=== PATIENT | female | born 1960 | race Caucasian/White ===

== ENCOUNTER → 2017-08-20 13:12 | Outpatient (CLI) | payer OTHER, MEDICAID, SELFPAY | PROVIDERS: Family Provider Family Medicine; PCP Family Medicine; Visit Provider Internal Medicine | DX: E11.621 Type 2 diabetes mellitus with foot ulcer (principal); E11.49 Type 2 diabetes mellitus with other diabetic neurological complication; L97.522 Non-pressure chronic ulcer of other part of left foot with fat layer exposed; L97.512 Non-pressure chronic ulcer of other part of right foot with fat layer exposed; L97.412 Non-pressure chronic ulcer of right heel and midfoot with fat layer exposed | CPT/HCPCS: 11042; 97607 ==

== ENCOUNTER → 2017-08-27 09:18 | Outpatient (CLI) | payer OTHER, MEDICAID, SELFPAY | PROVIDERS: Family Provider Family Medicine; PCP Family Medicine; Visit Provider Internal Medicine | DX: E11.621 Type 2 diabetes mellitus with foot ulcer (principal); L97.522 Non-pressure chronic ulcer of other part of left foot with fat layer exposed; L97.512 Non-pressure chronic ulcer of other part of right foot with fat layer exposed; E11.622 Type 2 diabetes mellitus with other skin ulcer; L97.412 Non-pressure chronic ulcer of right heel and midfoot with fat layer exposed | CPT/HCPCS: 11042; 97607 ==

== ENCOUNTER → 2017-09-03 09:00 | Outpatient (CLI) | payer OTHER, MEDICAID, SELFPAY | PROVIDERS: Family Provider Family Medicine; PCP Family Medicine; Visit Provider Internal Medicine | DX: E11.621 Type 2 diabetes mellitus with foot ulcer (principal); L97.522 Non-pressure chronic ulcer of other part of left foot with fat layer exposed; L97.512 Non-pressure chronic ulcer of other part of right foot with fat layer exposed; L97.412 Non-pressure chronic ulcer of right heel and midfoot with fat layer exposed; M79.671 Pain in right foot | CPT/HCPCS: 11042; 97607 ==

== ENCOUNTER → 2017-09-03 14:12 | Outpatient (REF) | payer OTHER, MEDICAID, SELFPAY | LOC: LAB 14:12 | PROVIDERS: Family Provider Family Medicine; PCP Family Medicine; Visit Provider Internal Medicine | DX: L08.9 Local infection of the skin and subcutaneous tissue, unspecified (principal) | CPT/HCPCS: 87070; 87075; 87077; 87147; 87205 ==

== ENCOUNTER → 2017-09-03 14:19 | Outpatient (REF) | payer OTHER, MEDICAID, SELFPAY | LOC: LAB 14:19 | PROVIDERS: Family Provider Family Medicine; PCP Family Medicine; Visit Provider Internal Medicine | DX: L08.9 Local infection of the skin and subcutaneous tissue, unspecified (principal) | CPT/HCPCS: 87070; 87075; 87077; 87147; 87186; 87205 ==

== ENCOUNTER → 2017-09-10 09:47 | Outpatient (CLI) | payer OTHER, MEDICAID, SELFPAY | PROVIDERS: Family Provider Family Medicine; PCP Family Medicine; Visit Provider Internal Medicine | DX: E11.621 Type 2 diabetes mellitus with foot ulcer (principal); E11.65 Type 2 diabetes mellitus with hyperglycemia; L97.522 Non-pressure chronic ulcer of other part of left foot with fat layer exposed; L97.512 Non-pressure chronic ulcer of other part of right foot with fat layer exposed; L97.412 Non-pressure chronic ulcer of right heel and midfoot with fat layer exposed; B95.62 Methicillin resistant Staphylococcus aureus infection as the cause of diseases classified elsewhere | CPT/HCPCS: 11042 ==

== ENCOUNTER → 2017-09-17 09:08 | Outpatient (CLI) | payer OTHER, MEDICAID, SELFPAY ==
--- NOTE | 2017-09-17 | OV.WND_ITS ---
Progress Note Details Patient Name: Ariana Causey Patient Number: [id number] PatientPatientDate: 09/17/2017 Clinician: Joselin Gilliland Clinician Cosigner: Clara Espino Physician / Carpet Renovator: Raphael Bush SUBJECTIVE Chief Complaint This information was obtained from the patient Non-healing wound to right great toe and second toe. Allergies Sulfa (Sulfonamide Antibiotics), Vicodin HPI This information was obtained from the patient 09/17/17. Seen by Dr. Bush. The patient reports pain associated with the chronic left 3rd and 4th toe and right 2nd toe diabetic ulcers since her last visit and staff report significant maceration in these periulcer areas. Otherwise she'll complete her course of antibiotics that's treating the recent MRSA positive wound culture and is tolerating the wound vac overlying the right lateral heel diabetic ulcer. Her blood sugar is again over 300 today and she states she forgot to take her Lantus this morning. 09/10/17. Seen by Dr. Bush. The patient's now on doxycycline for the MRSA positive culture taken from the chronic right lateral heel diabetic ulcer last week. She does not report adverse side effects or other acute issues regarding the remaining left and right foot diabetic ulcers. Her blood sugars are again over 300 today which she attributes to eating strawberries this morning. 09/03/17. Seen by Dr. Bush. The patient reports some increased drainage associated with the bilateral diabetic foot ulcers since her last visit and she's still not checking blood sugars at home as recommended. Otherwise she's tolerating negative pressure wound therapy without difficulty and does not report any acute issues at this time. 08/27/17. Seen by Dr. Bush. The patient does not report significant pain nor drainage associated with the bilateral diabetic foot ulcers since her last visit and she tolerated negative pressure wound therapy of the right lateral heel diabetic ulcer without difficulty. 08/20/17. Seen by Dr. Bush. The patient does not report significant pain nor drainage associated with the bilateral diabetic foot ulcers since her last visit and she tolerated negative pressure wound therapy of the right lateral heel diabetic ulcer without difficulty. 08/13/17. Seen by Dr. Bush. The patient does not report significant pain nor drainage associated with the bilateral diabetic foot ulcers since her last visit and she tolerated negative pressure wound therapy of the right lateral heel diabetic ulcer without difficulty. Also, her blood sugars are improving although are still elevated at 204 today. 08/06/17. Seen by Dr. Bush. The patient does not report significant pain nor drainage associated with the bilateral diabetic foot ulcers since her last visit and she tolerated negative pressure wound therapy of the right lateral heel diabetic ulcer without difficulty. 07/30/17. Seen by Dr. Bush. The patient does not report significant pain nor drainage associated with the bilateral diabetic foot ulcers since her last visit and she tolerated negative pressure wound therapy of the right lateral heel diabetic ulcer without difficulty. 07/23/17. Seen by Dr. Bush. The patient does not report significant pain nor drainage associated with the bilateral diabetic foot ulcers since her last visit. Her MRI did not indicate osteo-myelitis of the right heel and she's been off of Zyvox that was treated in the recent MRSA infection for over a week. She has continued to apply topical gentamicin to the ulcers as recommended. Of note, her blood sugar is elevated again today at 227 which has been an ongoing issue since she's been attending our clinic. 07/16/17. Seen by Dr. Bush. The patient continues to report improvement in terms of pain and drainage associated with the chronic right and left foot diabetic ulcer since her last visit. She's completed a course of Zyvox that's been treating the recent MRSA positive wound culture of the right heel and does not report adverse side effects. She also has an MRI of the heel next week to evaluate for possible osteomyelitis. 07/13/17. Seen by Dr. Bush. The patient reports significant improvement in terms of her right heel pain since starting on Zyvox last week. She also feels in general the bilateral diabetic foot ulcers are draining less and improving. Her A1c was very high and her primary care provider increased her Lantus to 40 units twice daily. 07/09/17. Seen by Dr. Bush. The patient has not yet picked up her prescription for Zyvox which was approved yesterday to treat the right lateral heel MRSA positive wound culture. She does report increased pain or drainage associated with either the left or right foot diabetic ulcers and her blood sugars are just over 200 today which is an improvement. She is to follow-up with primary care provider today also noting her chronically elevated blood sugars and need for improving terms of her diabetes management in general. 07/06/17. Seen by Dr. Bush. The patient continues to report significant pain associated with bilateral right heel diabetic foot ulcer over the past week. Her wound culture grew a very resistant MRSA and she is not currently on systemic antibiotics. She does not report seeing any pain or drainage associated with the other right and left foot diabetic ulcers. As a side note, the patient states that her 10-year-old grandson is staying with her and has been helping with her insulin. 07/02/17. Seen by Dr. Bush. The patient's blood sugar 316 today and she still not checking them daily at home is recommended. She does not report significant pain or increased drainage associated with bilateral right and left foot diabetic ulcers since her last visit. 06/25/17. She will Dr. Bush. The patient continues on doxycycline for the MRSA positive culture taken from her right foot diabetic ulcer. She does not report increased drainage or pain associated with the bilateral diabetic foot ulcers and her x-ray of the right heel did not confirm osteomyelitis. Her blood sugars continue to be consistently around 250 and she is now checking them daily with the help of her caregiver. 06/18/16. Seen by JED Ruffin. The patient denies pain or increased drainage associated with bilateral diabetic foot ulcers. She was started on Doxycycline last week per MRSA culture. She takes her last dose today. Her blood sugar in clinic today was 255. She continues to be inconsistent with checking her blood sugars at home and continues to smoke despite being counseled on the associated negative effects on wound healing. 06/11/17. Seen by Dr. Bush. The patient does not report pain or increased drainage associated with bilateral diabetic foot ulcers. She has not picked up her antibiotic prescription to treat the recently cultured MRSA. Her blood sugar is 267 today following having a cookie for breakfast and she is also not checking her blood sugars routinely despite taking insulin. Of note, she has shown a pattern of noncompliance since establishing care at our clinic. She does not report fevers or feeling unwell in general. 06/04/17. Seen by Randell Turner PA-C. The patient reports no increase in drainage from her bilateral diabetic foot ulcers. Her CT Angiogram did not show hemodynamically significant stenosis or occlusions of her lower extremity arteries. She has not attempted to make an appointment to see her PCP regarding her persistent hyperglycemia. She continues smoking cigarettes and does not indicate a willingness to cut down or quit to help her ulcers heal. In addition, when a dog hair was pulled from her ulcer today she reported that I may have let my dog lay on my feet when I didn't have a bandage on. 05/28/17. Seen by Randell Turner PA-C. The patient reports stable drainage and pain from her diabetic foot ulcers. She initially refuses to have her blood sugar taken today citing having just eaten a box of candy. She has not attempted to make an appointment with her PCP to discuss her blood sugars. She continues on doxycycline for her ulcer infection and her CT angiogram to evaluate her PAD is scheduled for next week. In addition she continues smoking cigarettes. 05/18/17. Seen by Randell Turner PA-C. The patient reports decreased ulcer pain and stable drainage. Her blood sugars are reportedly over 200 and she has not made an appointment with her PCP to address this as instructed. 05/11/17. Seen by Randell Turner PA-C. The patient reports a decrease in ulcer pain from her bilateral lower extremity ulcers since taking her antibiotics. Her blood sugars continue to be over 150. 05/07/17. Seen by Randell Turner PA-C. The patient reports that her blood sugars have never ever been below 150 and that she has not yet begun taking the Doxycycline I have prescribed. She is willing to undergo debridement but is concerned about pain. Of note regarding pain, when I attempted to palpate her left pedal pulse, she stated that she experienced 7.5/10 pain from the light touch of palpating the dorsum of her foot. 04/29/17. Seen by Randell Turner PA-C. The patient reports increased pain from her ulcers, indicating that she will not be able to tolerate a debridement today of her ulcers. She is willing, however, to undergo a limited debridement to remove some devitalized tissue and obtain a tissue sample for bacterial culture. In addition, the patient notes new ulcers of her left leg and they have been rapidly increasing in size by her report. 04/23/17. Seen by Dr. Bush. The patient does not report significant pain or increased drainage associated with bilateral dorsal toe diabetic ulcers since her last visit. 04/16/17. Seen by Dr. Bush. The patient reports some new ulcers over the left toes and does not know how long they've been there but states they're somewhat painful. She does not report any increase in drainage or pain associated with chronic right first and second toe diabetic ulcers over the past week. She states she is not checking her blood sugars routinely because she is not able to use her glucometer and she has been decreasing her smoking substantially. She does not report fevers or feeling unwell or any other acute issues today. 04/09/17. Seen by Dr. Bush. The patient does not report significant pain nor increased drainage associated with the chronic right first and second toe diabetic ulcers since her last visit. Her arterial Doppler also did not confirm clinically significant PAD.She' s completed her course of oral antibiotics that was treated in the Enterobacter positive wound culture however continues to apply topical gentamicin dressing changes. Her blood sugars again are elevated today at 256. 04/01/17. Seen by Dr. Bush. The patient can to use reports some discomfort associated with the chronic right first and second toe diabetic ulcers. She was to have an arterial Doppler today to evaluate for PAD however was unable to make the appointment due to transportation issues. She continues on ciprofloxacin to treat the Enterobacter positive wound culture taken at the initial visit. Of note, her diabetes has been very poorly controlled and she continues to smoke cigarettes. Her blood sugar today is 354. 03/24/17. Seen by Dr. Bush. The patient continues to report pain associated with the chronic right first and second toe diabetic ulcers. She continues on ciprofloxacin for the recently cultured Enterobacter positive culture. She is a report of her side effects nor fevers or feeling unwell. Also, her blood sugars continue to be poorly controlled and are well over 300 today. 03/17/17. Seen by Dr. Bush. The patient is new to our clinic and presents with chronic right first and second toe diabetic ulcers. She states that they occurred spontaneously about 1 month ago and have been slowly progressing. She reports some modest pain and drainage however does not report fevers. Her diabetes is very poorly controlled with an A1c reportedly of 14 and she smokes half pack of cigarettes daily. Her primary care provider started her on Augmentin yesterday. Past Medical History This information was obtained from the patient Patient has a medical history of: Diabetes, type 2 Diabetic Neuropathy Urinary Incontinence Fibromylagia CVA Osteoarthritis Gastro Esoph. Reflux Disease (GERD) Sleep Apnea Hyperlipidemia Depression Complaints and Symptoms This information was obtained from the patient Patient complains of: General Notes: I have reviewed and concur with the Review of Systems and Past Family Social History documents completed by the clinician, I have reviewed and concur with the Wound Assessment document completed by the clinician Cardiovascular (Central): Dyspnea on Exertion Integumentary (Hair/Skin/Nails): Open Sore Musculoskeletal: Joint Swelling Prior Wound History: Drainage, Erythema, Pain Patient denies complaints or symptoms related to: Cardiovascular (Central): Irregular heart beat Cardiovascular (Central/Peripheral): Intermittent Claudication Constitutional Symptoms (General Health): Chills, Fever Ear/Nose/Mouth/Throat: Hearing Loss / Aid Gastrointestinal (GI): Nausea / Vomiting Hematologic/Lymphatic: Bleeding / Clotting Disorders, Bleeding Tendency Neurological: Loss of Protective Sensation Prior Wound History: Bleeding Psychiatric: Memory Loss Respiratory: Oxygen Use, Shortness of Breath OBJECTIVE Constitutional Vital signs reviewed and noted. Well developed. Alert. Clean appearing.. Height/ Length: 63 in (160.02 cm), Weight: 215 lbs (97.73 kgs), BMI: 38.1, Temperature: 98.8 ?F ( 37.11 ?C), Pulse: 99 bpm, Respiratory Rate: 18 breaths/min, Blood Pressure: 136/88 mmHg, Capillary Blood Glucose: 384 mg/dl, Pulse Oximetry: 96 %. Vital Signs Notes: Glucose taken in clinic Ears, Nose, Mouth, and Throat: No clinically significant hearing loss on informal examination. Respiratory: No respiratory distress. Even respirations and without use of accessory muscles.. Cardiovascular: 1+ bilateral lower leg edema. Gastrointestinal (GI): Obese. Nondistended.. Integumentary (Hair, Skin) Mild periwound erythema without warmth. Refer to appropriate clinician wound documentation for this visit; right and left foot ulcers extend to subcut with bases partially covered with pink granulation, remainder fibrin and slough; right 1st toe ucler extends to dermis and is nearly healed. Maceration present in the periwound areas. Wound #3 Left, Dorsal Second Toe is a chronic Aguilar Grade 2 Diabetic Ulcer and has received a status of Not Healed. Subsequent wound encounter measurements are 0.1cm length x 0.1cm width x 0.1cm depth, with an area of 0.01 sq cm and a volume of 0.001 cubic cm. Hypergranulation was noted. No tunneling has been noted. No sinus tract has been noted. No undermining has been noted. There is a scant amount of sero-sanguineous drainage noted which has no odor. The patient reports a wound pain of level 0/10. The wound margin is attached. Wound bed has Yes epithelialization, No eschar, Yes slough, No granulation. The periwound skin texture is normal. The periwound skin color is normal. The periwound skin exhibited: Moist, Maceration. The temperature of the periwound skin is Cool. Periwound skin does not exhibit signs or symptoms of infection. Local Pulse is Palpable. General Notes: Covered in dried drainage Wound #8 Right Heel is a chronic Aguilar Grade 2 Diabetic Ulcer and has received a status of Not Healed. Subsequent wound encounter measurements are 2.5cm length x 1.6cm width x 0.2cm depth, with an area of 4 sq cm and a volume of 0.8 cubic cm. No tunneling has been noted. No sinus tract has been noted. No undermining has been noted. There is a large amount of sero-sanguineous drainage noted which has no odor. The patient reports a wound pain of level 2/10. The wound margin is attached. Wound bed has No epithelialization, No eschar, Yes slough, Yes bright red, firm granulation. The periwound skin texture is normal. The periwound skin color is normal. The periwound skin exhibited: Moist, Maceration. The periwound skin did not exhibit: Dry/Scaly. The temperature of the periwound skin is Cool. Periwound skin does not exhibit signs or symptoms of infection. Local Pulse is Palpable. Wound #9 Left, Medial Third Toe is a chronic Aguilar Grade 2 Diabetic Ulcer and has received a status of Not Healed. Subsequent wound encounter measurements are 0.5cm length x 0.6cm width x 0.2cm depth, with an area of 0.3 sq cm and a volume of 0.06 cubic cm. No tunneling has been noted. No sinus tract has been noted. No undermining has been noted. There is a small amount of sero-sanguineous drainage noted which has no odor. The patient reports a wound pain of level 0/10. The wound margin is attached. Wound bed has No epithelialization, No eschar, Yes slough, Yes bright red, pink, firm granulation. The periwound skin texture is normal. The periwound skin color is normal. The periwound skin exhibited: Moist, Maceration. The temperature of the periwound skin is Cool. Periwound skin does not exhibit signs or symptoms of infection. Local Pulse is Palpable. Wound #10 Right, Dorsal, Anterior Great Toe is a chronic Aguilar Grade 1 Diabetic Ulcer and has received a status of Not Healed. Subsequent wound encounter measurements are 0.1cm length x 0.1cm width x 0.1cm depth, with an area of 0.01 sq cm and a volume of 0.001 cubic cm. No tunneling has been noted. No sinus tract has been noted. No undermining has been noted. There is a small amount of sero-sanguineous drainage noted which has no odor. The patient reports a wound pain of level 0/10. The wound margin is attached. Wound bed has Yes epithelialization, No eschar, Yes slough, No granulation. The periwound skin texture is normal. The periwound skin moisture is normal. The periwound skin color is normal. The temperature of the periwound skin is Cool. Periwound skin does not exhibit signs or symptoms of infection. Local Pulse is Palpable. Wound #11 Right, Dorsal Second Toe is a chronic Aguilar Grade 1 Diabetic Ulcer and has received a status of Not Healed. Subsequent wound encounter measurements are 0.1cm length x 0.1cm width x 0.1cm depth, with an area of 0.01 sq cm and a volume of 0.001 cubic cm. No tunneling has been noted. No sinus tract has been noted. No undermining has been noted. There is a scant amount of sanguineous drainage noted which has no odor. The patient reports a wound pain of level 0/10. The wound margin is attached. Wound bed has No epithelialization, No eschar, Yes slough, Yes pink, firm granulation. The periwound skin texture is normal. The periwound skin color is normal. The periwound skin exhibited: Maceration. The temperature of the periwound skin is Cool. Periwound skin does not exhibit signs or symptoms of infection. Local Pulse is Palpable. General Notes: Measured base of the nail. Neurological: Cranial nerves grossly intact with symmetric function normal by informal observation.. ASSESSMENT Active Problems ICD-10 (Encounter Diagnosis) L97.522 - Non-pressure chronic ulcer of other part of left foot with fat layer exposed (Encounter Diagnosis) E11.621 - Type 2 diabetes mellitus with foot ulcer (Encounter Diagnosis) L97.512 - Non-pressure chronic ulcer of other part of right foot with fat layer exposed (Encounter Diagnosis) L97.412 - Non-pressure chronic ulcer of right heel and midfoot with fat layer exposed (Encounter Diagnosis) B95.62 - Methicillin resistant Staphylococcus aureus infection as the cause of diseases classified elsewhere (Encounter Diagnosis) E11.65 - Type 2 diabetes mellitus with hyperglycemia (Encounter Diagnosis) Z91.19 - Patient's noncompliance with other medical treatment and regimen PROCEDURES Wound #3 Wound #3 (Diabetic Ulcer) is located on the left, dorsal second toe. A skin/ subcutaneous tissue level surgical debridement with a total area debrided of 0.04 sq cm was performed by Raphael Bush MD. Subcutaneous was removed along with devitalized tissue: slough. The following instrument(s) were used: curette. Pain control was achieved using 4% Lido. A time out was conducted prior to the start of the procedure. A minimal amount of bleeding was controlled with n/a. The procedure was tolerated well with a pain level of 0 throughout and a pain level of 0 following the procedure. Post Debridement Measurements: 0.2cm length x 0.2cm width x 0.2cm depth; with an area of 0.04 sq cm and a volume of 0.008 cubic cm; Wound #8 Wound #8 (Diabetic Ulcer) is located on the right heel. A skin/subcutaneous tissue level surgical debridement with a total area debrided of 4.25 sq cm was performed by Raphael Bush MD. Subcutaneous was removed along with devitalized tissue: slough and maceration. The following instrument(s) were used: curette. Pain control was achieved using 4% Lido. A time out was conducted prior to the start of the procedure. A minimal amount of bleeding was controlled with n/a. The procedure was tolerated well with a pain level of 0 throughout and a pain level of 0 following the procedure. Post Debridement Measurements: 2.5cm length x 1.7cm width x 0.3cm depth; with an area of 4.25 sq cm and a volume of 1.275 cubic cm; Wound #8 (Diabetic Ulcer) is located on the right heel. A Disposable Wound Vac Application < 50 Sq Cm procedure was performed for the lower right extremity by Raphael Bush MD. A time out was conducted prior to the start of the procedure. The procedure was tolerated well. General Notes: WILFREDO 4x8 Wound #9 Wound #9 (Diabetic Ulcer) is located on the left, medial third toe. A skin/ subcutaneous tissue level surgical debridement with a total area debrided of 0.36 sq cm was performed by Raphael Bush MD. Subcutaneous was removed along with devitalized tissue: exudate, slough, and maceration. The following instrument(s) were used: curette. Pain control was achieved using 4% Lido. A time out was conducted prior to the start of the procedure. A minimal amount of bleeding was controlled with n/a. The procedure was tolerated well with a pain level of 0 throughout and a pain level of 0 following the procedure. Post Debridement Measurements: 0.6cm length x 0.6cm width x 0.3cm depth; with an area of 0.36 sq cm and a volume of 0.108 cubic cm; Wound #10 Wound #10 (Diabetic Ulcer) is located on the right, dorsal, anterior great toe. A selective debridement with a total area debrided of 0.01 sq cm was performed by Raphael Bush MD. Dermis and Epidermis were removed along with devitalized tissue: exudate. The following instrument(s) were used: curette. Pain control was achieved using 4% Lido. A time out was conducted prior to the start of the procedure. No bleeding occurred. The procedure was tolerated well with a pain level of 0 throughout and a pain level of 0 following the procedure. Post Debridement Measurements: 0.1cm length x 0.1cm width x 0.1cm depth; with an area of 0.01 sq cm and a volume of 0.001 cubic cm; Wound #11 Wound #11 (Diabetic Ulcer) is located on the right, dorsal second toe. A skin/ subcutaneous tissue level surgical debridement with a total area debrided of 0.04 sq cm was performed by Raphael Bush MD. Subcutaneous was removed along with devitalized tissue: slough. The following instrument(s) were used: curette. Pain control was achieved using 4% Lido. A time out was conducted prior to the start of the procedure. A minimal amount of bleeding was controlled with n/a. The procedure was tolerated well with a pain level of 0 throughout and a pain level of 0 following the procedure. Post Debridement Measurements: 0.2cm length x 0.2cm width x 0.2cm depth; with an area of 0.04 sq cm and a volume of 0.008 cubic cm; Additional Information Muscle fascia or bone removed and sent to pathology?: No Muscle fascia or bone removed and sent to pathology?: No Muscle fascia or bone removed and sent to pathology?: No Muscle fascia or bone removed and sent to pathology?: No PLAN Wound Orders: Wound #3 Left, Dorsal Second Toe Anesthetic Topical Xylocaine to wound bed. - [place] clinic only Cleanser Cleanse Wound: - with Normal saline. May Shower With Negative Pressure - Please avoid getting tap water on wounds or in dressing. Please cover if taking a shower. Topical Treatments Antibiotic/Antimicrobial Ointment/Cream. - Gentamicin Dressings Primary dressing: - Foam and intradry between toes Cover and secure with: - Tape, conform and netting Change Dressing: - Daily Wound #8 Right Heel Anesthetic Topical Xylocaine to wound bed. - [facility] only Topical Treatments Antibiotic/Antimicrobial Ointment/Cream. - Gentamicin Dressings Negative Pressure Wound Therapy - Wilfredo dressing. Wound #9 Left, Medial Third Toe Anesthetic Topical Xylocaine to wound bed. - [facility] only Cleanser Cleanse Wound: - with Normal saline. May Shower With Negative Pressure - Please avoid getting tap water on wounds or in dressing. Please cover if taking a shower. Topical Treatments Antibiotic/Antimicrobial Ointment/Cream. - Gentamicin Dressings Primary dressing: - Aqua cell silver between toes Cover and secure with: - conform and netting Change Dressing: - Daily Wound #10 Right, Dorsal, Anterior Great Toe Anesthetic Topical Xylocaine to wound bed. - [facility] only Cleanser Cleanse Wound: - with Normal saline. May Shower With Negative Pressure - Please avoid getting tap water on wounds or in dressing. Please cover if taking a shower. Topical Treatments Antibiotic/Antimicrobial Ointment/Cream. - Gentamicin Dressings Primary dressing: - Foam and intradry between toes Cover and secure with: - Tape, conform and netting Change Dressing: - Daily Wound #11 Right, Dorsal Second Toe Anesthetic Topical Xylocaine to wound bed. - [facility] only Topical Treatments Antibiotic/Antimicrobial Ointment/Cream. - Gentamicin Dressings Primary dressing: - Foam and intradry between toes Cover and secure with: - Tape, conform and netting Change Dressing: - Daily Additional Orders: Follow-Up Appointments Return Appointment: - - One week Other information: If you develop fever, chills, increased pain, drainage, redness or swelling please call our office. If after hours, respond to the ER. Should you experience any significant changes in your wound(s) or have any questions regarding your home care instructions please contact the wound center @ [phone]. If after hours, contact your primary care physician or go to the hospital emergency room. Scribing Attestation I attest, as the nurse, that I scribed these orders for the physician. Laboratory: Bacteria identified in Wound by Culture - Left third toe#9 and right second toe #11 General Notes: Please finished taking your antibiotics. We will call you if there is any positive growth in the culture. I've reviewed the clinician's documentation and agree with the evaluation and plan as written. In addition the patient's ulcers demonstrate evidence of non-viable devitalized tissue and they will continue to benefit from sharp debridement to help promote granulation and expedite healing. Negative pressure wound therapy will be utilized to facilitate granulation and removal of exudate and infectious material with the goal of expediting wound healing. Also, I've taken wound cultures of the left 3rd toe and right 2nd toe diabetic ulcers and will adjust her antibiotics pending the results. She's also been counseled regarding the need to adhere to her diabetes medication regimen to better control her blood sugars. Electronic Signature(s) Signed By: Date: Raphael Bush MD 09/19/2017 14:27:05 Entered By: Raphael Bush on 09/17/2017 12:50:14
== END ==
PROVIDERS: Family Provider Family Medicine; PCP Family Medicine; Visit Provider Internal Medicine
DX: E11.621 Type 2 diabetes mellitus with foot ulcer (principal); L97.522 Non-pressure chronic ulcer of other part of left foot with fat layer exposed; L97.512 Non-pressure chronic ulcer of other part of right foot with fat layer exposed; L97.412 Non-pressure chronic ulcer of right heel and midfoot with fat layer exposed; B95.62 Methicillin resistant Staphylococcus aureus infection as the cause of diseases classified elsewhere; E11.65 Type 2 diabetes mellitus with hyperglycemia; Z91.19 Patient's noncompliance with other medical treatment and regimen; M79.672 Pain in left foot; L97.511 Non-pressure chronic ulcer of other part of right foot limited to breakdown of skin
CPT/HCPCS: 11042; 87070; 87075; 87077; 87147; 87205; 97607

== ENCOUNTER → 2017-09-24 11:42 | Outpatient (CLI) | payer OTHER, MEDICAID, SELFPAY ==
--- NOTE | 2017-09-24 | OV.WND_ITS ---
Progress Note Details Patient Name: Ariana Causey Patient Number: [id number] PatientPatientDate: 09/24/2017 Clinician: Krystle Richardson Clinician Cosigner: Joselin Gilliland Physician / Furniture Removalist'S Assistant: Nasim Turner SUBJECTIVE Chief Complaint This information was obtained from the patient Non-healing wound to right great toe and second toe. Allergies Sulfa (Sulfonamide Antibiotics), Vicodin HPI This information was obtained from the patient 09/24/17. Seen by Randell Turner PA-C. The patient reports high blood sugars and increased drainage from her left foot diabetic ulcers. 09/17/17. Seen by Dr. Bush. The patient reports pain associated with the chronic left 3rd and 4th toe and right 2nd toe diabetic ulcers since her last visit and staff report significant maceration in these periulcer areas. Otherwise she'll complete her course of antibiotics that's treating the recent MRSA positive wound culture and is tolerating the wound vac overlying the right lateral heel diabetic ulcer. Her blood sugar is again over 300 today and she states she forgot to take her Lantus this morning. 09/10/17. Seen by Dr. Bush. The patient's now on doxycycline for the MRSA positive culture taken from the chronic right lateral heel diabetic ulcer last week. She does not report adverse side effects or other acute issues regarding the remaining left and right foot diabetic ulcers. Her blood sugars are again over 300 today which she attributes to eating strawberries this morning. 09/03/17. Seen by Dr. Bush. The patient reports some increased drainage associated with the bilateral diabetic foot ulcers since her last visit and she's still not checking blood sugars at home as recommended. Otherwise she's tolerating negative pressure wound therapy without difficulty and does not report any acute issues at this time. 08/27/17. Seen by Dr. Bush. The patient does not report significant pain nor drainage associated with the bilateral diabetic foot ulcers since her last visit and she tolerated negative pressure wound therapy of the right lateral heel diabetic ulcer without difficulty. 08/20/17. Seen by Dr. Bush. The patient does not report significant pain nor drainage associated with the bilateral diabetic foot ulcers since her last visit and she tolerated negative pressure wound therapy of the right lateral heel diabetic ulcer without difficulty. 08/13/17. Seen by Dr. Bush. The patient does not report significant pain nor drainage associated with the bilateral diabetic foot ulcers since her last visit and she tolerated negative pressure wound therapy of the right lateral heel diabetic ulcer without difficulty. Also, her blood sugars are improving although are still elevated at 204 today. 08/06/17. Seen by Dr. Bush. The patient does not report significant pain nor drainage associated with the bilateral diabetic foot ulcers since her last visit and she tolerated negative pressure wound therapy of the right lateral heel diabetic ulcer without difficulty. 07/30/17. Seen by Dr. Bush. The patient does not report significant pain nor drainage associated with the bilateral diabetic foot ulcers since her last visit and she tolerated negative pressure wound therapy of the right lateral heel diabetic ulcer without difficulty. 07/23/17. Seen by Dr. Bush. The patient does not report significant pain nor drainage associated with the bilateral diabetic foot ulcers since her last visit. Her MRI did not indicate osteo-myelitis of the right heel and she's been off of Zyvox that was treated in the recent MRSA infection for over a week. She has continued to apply topical gentamicin to the ulcers as recommended. Of note, her blood sugar is elevated again today at 227 which has been an ongoing issue since she's been attending our clinic. 07/16/17. Seen by Dr. Bush. The patient continues to report improvement in terms of pain and drainage associated with the chronic right and left foot diabetic ulcer since her last visit. She's completed a course of Zyvox that's been treating the recent MRSA positive wound culture of the right heel and does not report adverse side effects. She also has an MRI of the heel next week to evaluate for possible osteomyelitis. 07/13/17. Seen by Dr. Bush. The patient reports significant improvement in terms of her right heel pain since starting on Zyvox last week. She also feels in general the bilateral diabetic foot ulcers are draining less and improving. Her A1c was very high and her primary care provider increased her Lantus to 40 units twice daily. 07/09/17. Seen by Dr. Bush. The patient has not yet picked up her prescription for Zyvox which was approved yesterday to treat the right lateral heel MRSA positive wound culture. She does report increased pain or drainage associated with either the left or right foot diabetic ulcers and her blood sugars are just over 200 today which is an improvement. She is to follow-up with primary care provider today also noting her chronically elevated blood sugars and need for improving terms of her diabetes management in general. 07/06/17. Seen by Dr. Bush. The patient continues to report significant pain associated with bilateral right heel diabetic foot ulcer over the past week. Her wound culture grew a very resistant MRSA and she is not currently on systemic antibiotics. She does not report seeing any pain or drainage associated with the other right and left foot diabetic ulcers. As a side note, the patient states that her 10-year-old grandson is staying with her and has been helping with her insulin. 07/02/17. Seen by Dr. Bush. The patient's blood sugar 316 today and she still not checking them daily at home is recommended. She does not report significant pain or increased drainage associated with bilateral right and left foot diabetic ulcers since her last visit. 06/25/17. She will Dr. Bush. The patient continues on doxycycline for the MRSA positive culture taken from her right foot diabetic ulcer. She does not report increased drainage or pain associated with the bilateral diabetic foot ulcers and her x-ray of the right heel did not confirm osteomyelitis. Her blood sugars continue to be consistently around 250 and she is now checking them daily with the help of her caregiver. 06/18/16. Seen by JED Ruffin. The patient denies pain or increased drainage associated with bilateral diabetic foot ulcers. She was started on Doxycycline last week per MRSA culture. She takes her last dose today. Her blood sugar in clinic today was 255. She continues to be inconsistent with checking her blood sugars at home and continues to smoke despite being counseled on the associated negative effects on wound healing. 06/11/17. Seen by Dr. Bush. The patient does not report pain or increased drainage associated with bilateral diabetic foot ulcers. She has not picked up her antibiotic prescription to treat the recently cultured MRSA. Her blood sugar is 267 today following having a cookie for breakfast and she is also not checking her blood sugars routinely despite taking insulin. Of note, she has shown a pattern of noncompliance since establishing care at our clinic. She does not report fevers or feeling unwell in general. 06/04/17. Seen by Randell Turner PA-C. The patient reports no increase in drainage from her bilateral diabetic foot ulcers. Her CT Angiogram did not show hemodynamically significant stenosis or occlusions of her lower extremity arteries. She has not attempted to make an appointment to see her PCP regarding her persistent hyperglycemia. She continues smoking cigarettes and does not indicate a willingness to cut down or quit to help her ulcers heal. In addition, when a dog hair was pulled from her ulcer today she reported that I may have let my dog lay on my feet when I didn't have a bandage on. 05/28/17. Seen by Randell Turner PA-C. The patient reports stable drainage and pain from her diabetic foot ulcers. She initially refuses to have her blood sugar taken today citing having just eaten a box of candy. She has not attempted to make an appointment with her PCP to discuss her blood sugars. She continues on doxycycline for her ulcer infection and her CT angiogram to evaluate her PAD is scheduled for next week. In addition she continues smoking cigarettes. 05/18/17. Seen by Randell Turner PA-C. The patient reports decreased ulcer pain and stable drainage. Her blood sugars are reportedly over 200 and she has not made an appointment with her PCP to address this as instructed. 05/11/17. Seen by Randell Turner PA-C. The patient reports a decrease in ulcer pain from her bilateral lower extremity ulcers since taking her antibiotics. Her blood sugars continue to be over 150. 05/07/17. Seen by Randell Turner PA-C. The patient reports that her blood sugars have never ever been below 150 and that she has not yet begun taking the Doxycycline I have prescribed. She is willing to undergo debridement but is concerned about pain. Of note regarding pain, when I attempted to palpate her left pedal pulse, she stated that she experienced 7.5/10 pain from the light touch of palpating the dorsum of her foot. 04/29/17. Seen by Randell Turner PA-C. The patient reports increased pain from her ulcers, indicating that she will not be able to tolerate a debridement today of her ulcers. She is willing, however, to undergo a limited debridement to remove some devitalized tissue and obtain a tissue sample for bacterial culture. In addition, the patient notes new ulcers of her left leg and they have been rapidly increasing in size by her report. 04/23/17. Seen by Dr. Bush. The patient does not report significant pain or increased drainage associated with bilateral dorsal toe diabetic ulcers since her last visit. 04/16/17. Seen by Dr. Bush. The patient reports some new ulcers over the left toes and does not know how long they've been there but states they're somewhat painful. She does not report any increase in drainage or pain associated with chronic right first and second toe diabetic ulcers over the past week. She states she is not checking her blood sugars routinely because she is not able to use her glucometer and she has been decreasing her smoking substantially. She does not report fevers or feeling unwell or any other acute issues today. 04/09/17. Seen by Dr. Bush. The patient does not report significant pain nor increased drainage associated with the chronic right first and second toe diabetic ulcers since her last visit. Her arterial Doppler also did not confirm clinically significant PAD.She' s completed her course of oral antibiotics that was treated in the Enterobacter positive wound culture however continues to apply topical gentamicin dressing changes. Her blood sugars again are elevated today at 256. 04/01/17. Seen by Dr. Bush. The patient can to use reports some discomfort associated with the chronic right first and second toe diabetic ulcers. She was to have an arterial Doppler today to evaluate for PAD however was unable to make the appointment due to transportation issues. She continues on ciprofloxacin to treat the Enterobacter positive wound culture taken at the initial visit. Of note, her diabetes has been very poorly controlled and she continues to smoke cigarettes. Her blood sugar today is 354. 03/24/17. Seen by Dr. Bush. The patient continues to report pain associated with the chronic right first and second toe diabetic ulcers. She continues on ciprofloxacin for the recently cultured Enterobacter positive culture. She is a report of her side effects nor fevers or feeling unwell. Also, her blood sugars continue to be poorly controlled and are well over 300 today. 03/17/17. Seen by Dr. Bush. The patient is new to our clinic and presents with chronic right first and second toe diabetic ulcers. She states that they occurred spontaneously about 1 month ago and have been slowly progressing. She reports some modest pain and drainage however does not report fevers. Her diabetes is very poorly controlled with an A1c reportedly of 14 and she smokes half pack of cigarettes daily. Her primary care provider started her on Augmentin yesterday. Family History This information was obtained from the patient Unknown History - Mother, Maternal Grandparents, Father, Paternal Grandparents, Sibling, Child Social History This information was obtained from the patient Current every day smoker, Caffeine Use - 2 cups coffee a day, Children - 7, Lives in - Private home with caregiver, Occupation - disabled, Tobacco Use - 1/2 ppd, Unable to Care for Self - Caregiver providing care. General Notes: Live with caregiver now. Past Medical History This information was obtained from the patient Patient has a medical history of: Diabetes, type 2 Diabetic Neuropathy Urinary Incontinence Fibromylagia CVA Osteoarthritis Gastro Esoph. Reflux Disease (GERD) Sleep Apnea Hyperlipidemia Depression Surgical History This information was obtained from the patient Patient has a surgical history of: Tubal Ligation cholecystectomy kidney stone removal Complaints and Symptoms This information was obtained from the patient Patient complains of: General Notes: I have reviewed and concur with the Review of Systems and Past Family Social History documents completed by the clinician, I have reviewed and concur with the Wound Assessment document completed by the clinician Cardiovascular (Central): Dyspnea on Exertion Integumentary (Hair/Skin/Nails): Open Sore Musculoskeletal: Joint Swelling Prior Wound History: Drainage, Erythema, Pain Patient denies complaints or symptoms related to: Cardiovascular (Central): Irregular heart beat Cardiovascular (Central/Peripheral): Intermittent Claudication Constitutional Symptoms (General Health): Chills, Fever Ear/Nose/Mouth/Throat: Hearing Loss / Aid Gastrointestinal (GI): Nausea / Vomiting Hematologic/Lymphatic: Bleeding / Clotting Disorders, Bleeding Tendency Neurological: Loss of Protective Sensation Prior Wound History: Bleeding Psychiatric: Memory Loss Respiratory: Oxygen Use, Shortness of Breath OBJECTIVE Constitutional Vital signs reviewed. Elevated blood sugar noted. Well developed, lucid, and in no acute distress. . Height/Length: 63 in (160.02 cm), Weight: 215 lbs (97.73 kgs), BMI: 38.1, Temperature: 98.7 ?F (37.06 ?C), Pulse: 100 bpm, Respiratory Rate: 18 breaths/ min, Blood Pressure: 121/81 mmHg, Capillary Blood Glucose: 370 mg/dl, Pulse Oximetry: 97 %. Vital Signs Notes: Glucose taken in clinic Eyes: Conjunctiva clear and without icterus. Pupils are equal and round; EOM's intact. Ears, Nose, Mouth, and Throat: Grossly intact. Respiratory: No respiratory distress. Even respirations and without use of accessory muscles.. Integumentary (Hair, Skin) Refer to appropriate clinician wound documentation for this visit; ulcer extends to muscle/fascial layer. Hypergranulation tissue noted.. Wound #3 Left, Dorsal Second Toe is a chronic Aguilar Grade 2 Diabetic Ulcer and has received an outcome of Healed - no new wound(s). Subsequent wound encounter measurements are 0cm length x 0cm width x 0cm depth, with an area of 0 sq cm and a volume of 0 cubic cm. Hypergranulation was noted. No tunneling has been noted. No sinus tract has been noted. No undermining has been noted. There was no drainage noted. The patient reports a wound pain of level 0/10. Wound bed has Yes epithelialization , No eschar, No slough, No granulation. The periwound skin texture is normal. The periwound skin color is normal. The periwound skin exhibited: Moist, Maceration. The temperature of the periwound skin is Cool. Periwound skin does not exhibit signs or symptoms of infection. Local Pulse is Palpable. Wound #8 Right Heel is a chronic Aguilar Grade 2 Diabetic Ulcer and has received a status of Not Healed. Subsequent wound encounter measurements are 1.2cm length x 2.1cm width x 0.2cm depth, with an area of 2.52 sq cm and a volume of 0.504 cubic cm. No tunneling has been noted. No sinus tract has been noted. No undermining has been noted. There is a large amount of sero-sanguineous drainage noted which has no odor. The patient reports a wound pain of level 2/10. The wound margin is attached. Wound bed has No epithelialization, No eschar, Yes slough, Yes bright red, firm granulation. The periwound skin texture is normal. The periwound skin color is normal. The periwound skin exhibited: Moist, Maceration. The periwound skin did not exhibit: Dry/Scaly. The temperature of the periwound skin is Cool. Periwound skin does not exhibit signs or symptoms of infection. Local Pulse is Palpable. Wound #9 Left, Medial Third Toe is a chronic Aguilar Grade 2 Diabetic Ulcer and has received a status of Not Healed. Subsequent wound encounter measurements are 0.5cm length x 0.6cm width x 0.2cm depth, with an area of 0.3 sq cm and a volume of 0.06 cubic cm. No tunneling has been noted. No sinus tract has been noted. No undermining has been noted. There is a small amount of sero-sanguineous drainage noted which has no odor. The patient reports a wound pain of level 0/10. The wound margin is attached. Wound bed has No epithelialization, No eschar, Yes slough, Yes bright red, pink, firm granulation. The periwound skin texture is normal. The periwound skin color is normal. The periwound skin exhibited: Maceration. The periwound skin did not exhibit: Moist. The temperature of the periwound skin is Cool. Periwound skin does not exhibit signs or symptoms of infection. Local Pulse is Palpable. Wound #10 Right, Dorsal, Anterior Great Toe is a chronic Aguilar Grade 1 Diabetic Ulcer and has received an outcome of Healed - no new wound(s). Subsequent wound encounter measurements are 0cm length x 0cm width x 0cm depth, with an area of 0 sq cm and a volume of 0 cubic cm. No tunneling has been noted. No sinus tract has been noted. No undermining has been noted. There was no drainage noted. The patient reports a wound pain of level 0/10. Wound bed has Yes epithelialization, No eschar, No slough, No granulation. The periwound skin texture is normal. The periwound skin moisture is normal. The periwound skin color is normal. The temperature of the periwound skin is Cool. Periwound skin does not exhibit signs or symptoms of infection. Local Pulse is Palpable. Wound #11 Right, Dorsal Second Toe is a chronic Aguilar Grade 2 Diabetic Ulcer and has received a status of Not Healed. Subsequent wound encounter measurements are 0.2cm length x 0.1cm width x 0.5cm depth, with an area of 0.02 sq cm and a volume of 0.01 cubic cm. No tunneling has been noted. No sinus tract has been noted. No undermining has been noted. There is a scant amount of sanguineous drainage noted which has no odor. The patient reports a wound pain of level 0/10. The wound margin is attached. Wound bed has No epithelialization, No eschar, Yes slough, Yes pink, firm granulation. The periwound skin texture is normal. The periwound skin color is normal. The periwound skin exhibited: Maceration. The temperature of the periwound skin is Cool. Periwound skin does not exhibit signs or symptoms of infection. Local Pulse is Palpable. Psychiatric: Judgement and insight: Normal affect with normal thought pattern. Alert and oriented 3/3. Memory grossly intact.. Normal affect. Mood appropriate.. ASSESSMENT Active Problems ICD-10 (Encounter Diagnosis) L97.522 - Non-pressure chronic ulcer of other part of left foot with fat layer exposed (Encounter Diagnosis) E11.621 - Type 2 diabetes mellitus with foot ulcer (Encounter Diagnosis) L97.512 - Non-pressure chronic ulcer of other part of right foot with fat layer exposed (Encounter Diagnosis) L97.412 - Non-pressure chronic ulcer of right heel and midfoot with fat layer exposed (Encounter Diagnosis) E11.65 - Type 2 diabetes mellitus with hyperglycemia (Encounter Diagnosis) Z91.19 - Patient's noncompliance with other medical treatment and regimen (Encounter Diagnosis) L97.523 - Non-pressure chronic ulcer of other part of left foot with necrosis of muscle (Encounter Diagnosis) L08.89 - Other specified local infections of the skin and subcutaneous tissue (Encounter Diagnosis) L92.8 - Other granulomatous disorders of the skin and subcutaneous tissue PROCEDURES Wound #8 Wound #8 (Diabetic Ulcer) is located on the right heel. A skin/subcutaneous tissue level surgical debridement with a total area debrided of 2.52 sq cm was performed by Nasim Turner PA. Subcutaneous was removed along with devitalized tissue: slough. The following instrument(s) were used: curette. Pain control was achieved using 4% Lido. A time out was conducted prior to the start of the procedure. No bleeding occurred. The patient tolerated the procedure with a pain level of 0 throughout and a pain level of 0 following the procedure. Post Debridement Measurements: 1.2cm length x 2.1cm width x 0.3cm depth; with an area of 2.52 sq cm and a volume of 0.756 cubic cm; Wound #9 Wound #9 (Diabetic Ulcer) is located on the left, medial third toe. A skin/ subcutaneous tissue/muscle/fascia level surgical debridement with a total area debrided of 0.3 sq cm was performed by Nasim Turner PA. Joint Capsule and Subcutaneous were removed along with devitalized tissue: slough. The following instrument(s) were used: curette. Pain control was achieved using 4% Lido. A time out was conducted prior to the start of the procedure. A moderate amount of bleeding was controlled with silver nitrate. The procedure was not tolerated well with a pain level of 0 throughout and a pain level of 0 following the procedure. Post Debridement Measurements: 0.5cm length x 0.6cm width x 0.3cm depth; with an area of 0.3 sq cm and a volume of 0.09 cubic cm; Wound #11 Wound #11 (Diabetic Ulcer) is located on the right, dorsal second toe. A skin/ subcutaneous tissue level surgical debridement with a total area debrided of 0.02 sq cm was performed by Nasim Turner PA. Subcutaneous was removed along with devitalized tissue: slough. The following instrument(s) were used: curette. Pain control was achieved using 4% Lido. A time out was conducted prior to the start of the procedure. A minimal amount of bleeding was controlled with pressure. The procedure was tolerated well with a pain level of 0 throughout and a pain level of 0 following the procedure. Post Debridement Measurements: 0.2cm length x 0.1cm width x 0.5cm depth; with an area of 0.02 sq cm and a volume of 0.01 cubic cm; Wound #11 (Diabetic Ulcer) is located on the right, dorsal second toe. A Chemical Cauterization procedure was performed by Nasim Turner PA. Additional Information Muscle fascia or bone removed and sent to pathology?: No Muscle fascia or bone removed and sent to pathology?: No Muscle fascia or bone removed and sent to pathology?: No PLAN Wound Orders: Wound #3 Left, Dorsal Second Toe Cleanser Cleanse Wound: - Normal saline or distilled water. May Shower. - Please use cast boot to protect dressings. Wound #8 Right Heel Anesthetic Topical Xylocaine to wound bed. - IN clinic only Dressings Negative Pressure Wound Therapy - Lexi 4x8. Leave in place. Follow-Up Appointments Return Appointment: - - One week. Scribing Attestation I attest, as the nurse, that I scribed these orders for the physician. Wound #9 Left, Medial Third Toe Anesthetic Topical Xylocaine to wound bed. - [facility] clinic only Cleanser Cleanse Wound: - Normal saline or distilled water. May Shower. - Please use cast boot to protect dressings. Dressings Primary dressing: - Aquacel AG to wound bed. Cover and secure with: - Conform roll gauze, then stockinet. Change Dressing: - Please change everyday. Follow-Up Appointments Return Appointment: - - One week. Scribing Attestation I attest, as the nurse, that I scribed these orders for the physician. Wound #11 Right, Dorsal Second Toe Anesthetic Topical Xylocaine to wound bed. - [facility] clinic only Cleanser Cleanse Wound: - Normal saline or distilled water. May Shower. - Please use cast boot to protect dressings. Dressings Primary dressing: - Aquacel AG to wound bed. Cover and secure with: - Conform roll gauze, then stockinet. Change Dressing: - Please change everyday. Follow-Up Appointments Return Appointment: - - One week. Scribing Attestation I attest, as the nurse, that I scribed these orders for the physician. Laboratory: Bacteria identified in Wound by Culture - Right Second Toe. I've reviewed the clinician's documentation and agree with the evaluation and plan as written. In addition the patient's ulcers demonstrate evidence of non-viable devitalized tissue which benefits from sharp debridement. The patient is assessed, based on the signs and symptoms noted today, as having a localized soft tissue infection. Treatment of the infection will begin with topical antimicrobials as described in my orders. Systemic antibioitcs may be added or altered once the results of the wound culture, that was performed today, have returned from the lab. Separate from the need for debridement today to speed healing, the patient's diabetes was assessed, as good blood sugar control reduces the risk of infection and improves soft tissue healing. The patient was enouraged to continue to comply with a diabetic diet, medications and continue to regularly follow up with primary care to maintain good control of this issue. In addition the presence of hypergranulation tissue in the wound was not an expected finding and was cauterized with silver nitrate. The patient's dressing regimen will be modified apporpriately to attempt to reduce the formation of further hypergranulation tissue. Electronic Signature(s) Signed By: Date: Randell Turner 09/27/2017 22:08:02 Entered By: Randell Turner on 09/27/2017 13:58:37 Addendum at 01/18/2018 12:49:18 No documentation of muscle or fascia being removed on debridement documentation. Addendum Signed By: Raphael Bush on 01/18/2018 12:49:18
== END ==
PROVIDERS: Family Provider Family Medicine; PCP Family Medicine; Visit Provider Physician Assistant
DX: E11.621 Type 2 diabetes mellitus with foot ulcer (principal); E11.65 Type 2 diabetes mellitus with hyperglycemia; L97.515 Non-pressure chronic ulcer of other part of right foot with muscle involvement without evidence of necrosis; L97.415 Non-pressure chronic ulcer of right heel and midfoot with muscle involvement without evidence of necrosis; L97.525 Non-pressure chronic ulcer of other part of left foot with muscle involvement without evidence of necrosis; L08.89 Other specified local infections of the skin and subcutaneous tissue; L92.8 Other granulomatous disorders of the skin and subcutaneous tissue; Z91.19 Patient's noncompliance with other medical treatment and regimen
CPT/HCPCS: 11042; 11043; 17250; 87070; 87075; 87077; 87147; 87186; 87205

== ENCOUNTER → 2017-10-01 09:21 | Outpatient (CLI) | payer OTHER, MEDICAID, SELFPAY ==
--- NOTE | 2017-10-01 | OV.WND_ITS ---
Progress Note Details Patient Name: Ariana Causey Patient Number: [id number] PatientPatientDate: 10/01/2017 Clinician: Krystle Richardson Physician / Digital Imager: Raphael Bush SUBJECTIVE Chief Complaint This information was obtained from the patient Non-healing wound to right great toe and second toe. Allergies Sulfa (Sulfonamide Antibiotics), Vicodin HPI This information was obtained from the patient 10/01/17. Seen by Dr. Bush. The patient's now on doxycycline again for MRSA and Streptococcus species cultured from the right 2nd toe diabetic ulcer although there's intermediate resistance noted on the culture sensitivies. She does not report increased pain or drainage from this site nor the right heel or left 2nd and 3rd toe diabetic foot ulcers and she's tolerating the antibiotic without reporting adverse side effects. 09/24/17. Seen by Randell Turner PA-C. The patient reports high blood sugars and increased drainage from her left foot diabetic ulcers. 09/17/17. Seen by Dr. Bush. The patient reports pain associated with the chronic left 3rd and 4th toe and right 2nd toe diabetic ulcers since her last visit and staff report significant maceration in these periulcer areas. Otherwise she'll complete her course of antibiotics that's treating the recent MRSA positive wound culture and is tolerating the wound vac overlying the right lateral heel diabetic ulcer. Her blood sugar is again over 300 today and she states she forgot to take her Lantus this morning. 09/10/17. Seen by Dr. Bush. The patient's now on doxycycline for the MRSA positive culture taken from the chronic right lateral heel diabetic ulcer last week. She does not report adverse side effects or other acute issues regarding the remaining left and right foot diabetic ulcers. Her blood sugars are again over 300 today which she attributes to eating strawberries this morning. 09/03/17. Seen by Dr. Bush. The patient reports some increased drainage associated with the bilateral diabetic foot ulcers since her last visit and she's still not checking blood sugars at home as recommended. Otherwise she's tolerating negative pressure wound therapy without difficulty and does not report any acute issues at this time. 08/27/17. Seen by Dr. Bush. The patient does not report significant pain nor drainage associated with the bilateral diabetic foot ulcers since her last visit and she tolerated negative pressure wound therapy of the right lateral heel diabetic ulcer without difficulty. 08/20/17. Seen by Dr. Bush. The patient does not report significant pain nor drainage associated with the bilateral diabetic foot ulcers since her last visit and she tolerated negative pressure wound therapy of the right lateral heel diabetic ulcer without difficulty. 08/13/17. Seen by Dr. Bush. The patient does not report significant pain nor drainage associated with the bilateral diabetic foot ulcers since her last visit and she tolerated negative pressure wound therapy of the right lateral heel diabetic ulcer without difficulty. Also, her blood sugars are improving although are still elevated at 204 today. 08/06/17. Seen by Dr. Bush. The patient does not report significant pain nor drainage associated with the bilateral diabetic foot ulcers since her last visit and she tolerated negative pressure wound therapy of the right lateral heel diabetic ulcer without difficulty. 07/30/17. Seen by Dr. Bush. The patient does not report significant pain nor drainage associated with the bilateral diabetic foot ulcers since her last visit and she tolerated negative pressure wound therapy of the right lateral heel diabetic ulcer without difficulty. 07/23/17. Seen by Dr. Bush. The patient does not report significant pain nor drainage associated with the bilateral diabetic foot ulcers since her last visit. Her MRI did not indicate osteo-myelitis of the right heel and she's been off of Zyvox that was treated in the recent MRSA infection for over a week. She has continued to apply topical gentamicin to the ulcers as recommended. Of note, her blood sugar is elevated again today at 227 which has been an ongoing issue since she's been attending our clinic. 07/16/17. Seen by Dr. Bush. The patient continues to report improvement in terms of pain and drainage associated with the chronic right and left foot diabetic ulcer since her last visit. She's completed a course of Zyvox that's been treating the recent MRSA positive wound culture of the right heel and does not report adverse side effects. She also has an MRI of the heel next week to evaluate for possible osteomyelitis. 07/13/17. Seen by Dr. Bush. The patient reports significant improvement in terms of her right heel pain since starting on Zyvox last week. She also feels in general the bilateral diabetic foot ulcers are draining less and improving. Her A1c was very high and her primary care provider increased her Lantus to 40 units twice daily. 07/09/17. Seen by Dr. Bush. The patient has not yet picked up her prescription for Zyvox which was approved yesterday to treat the right lateral heel MRSA positive wound culture. She does report increased pain or drainage associated with either the left or right foot diabetic ulcers and her blood sugars are just over 200 today which is an improvement. She is to follow-up with primary care provider today also noting her chronically elevated blood sugars and need for improving terms of her diabetes management in general. 07/06/17. Seen by Dr. Bush. The patient continues to report significant pain associated with bilateral right heel diabetic foot ulcer over the past week. Her wound culture grew a very resistant MRSA and she is not currently on systemic antibiotics. She does not report seeing any pain or drainage associated with the other right and left foot diabetic ulcers. As a side note, the patient states that her 10-year-old grandson is staying with her and has been helping with her insulin. 07/02/17. Seen by Dr. Bush. The patient's blood sugar 316 today and she still not checking them daily at home is recommended. She does not report significant pain or increased drainage associated with bilateral right and left foot diabetic ulcers since her last visit. 06/25/17. She will Dr. Bush. The patient continues on doxycycline for the MRSA positive culture taken from her right foot diabetic ulcer. She does not report increased drainage or pain associated with the bilateral diabetic foot ulcers and her x-ray of the right heel did not confirm osteomyelitis. Her blood sugars continue to be consistently around 250 and she is now checking them daily with the help of her caregiver. 06/18/16. Seen by JED Ruffin. The patient denies pain or increased drainage associated with bilateral diabetic foot ulcers. She was started on Doxycycline last week per MRSA culture. She takes her last dose today. Her blood sugar in clinic today was 255. She continues to be inconsistent with checking her blood sugars at home and continues to smoke despite being counseled on the associated negative effects on wound healing. 06/11/17. Seen by Dr. Bush. The patient does not report pain or increased drainage associated with bilateral diabetic foot ulcers. She has not picked up her antibiotic prescription to treat the recently cultured MRSA. Her blood sugar is 267 today following having a cookie for breakfast and she is also not checking her blood sugars routinely despite taking insulin. Of note, she has shown a pattern of noncompliance since establishing care at our clinic. She does not report fevers or feeling unwell in general. 06/04/17. Seen by Randell Turner PA-C. The patient reports no increase in drainage from her bilateral diabetic foot ulcers. Her CT Angiogram did not show hemodynamically significant stenosis or occlusions of her lower extremity arteries. She has not attempted to make an appointment to see her PCP regarding her persistent hyperglycemia. She continues smoking cigarettes and does not indicate a willingness to cut down or quit to help her ulcers heal. In addition, when a dog hair was pulled from her ulcer today she reported that I may have let my dog lay on my feet when I didn't have a bandage on. 05/28/17. Seen by Randell Turner PA-C. The patient reports stable drainage and pain from her diabetic foot ulcers. She initially refuses to have her blood sugar taken today citing having just eaten a box of candy. She has not attempted to make an appointment with her PCP to discuss her blood sugars. She continues on doxycycline for her ulcer infection and her CT angiogram to evaluate her PAD is scheduled for next week. In addition she continues smoking cigarettes. 05/18/17. Seen by Randell Turner PA-C. The patient reports decreased ulcer pain and stable drainage. Her blood sugars are reportedly over 200 and she has not made an appointment with her PCP to address this as instructed. 05/11/17. Seen by Randell Turner PA-C. The patient reports a decrease in ulcer pain from her bilateral lower extremity ulcers since taking her antibiotics. Her blood sugars continue to be over 150. 05/07/17. Seen by Randell Turner PA-C. The patient reports that her blood sugars have never ever been below 150 and that she has not yet begun taking the Doxycycline I have prescribed. She is willing to undergo debridement but is concerned about pain. Of note regarding pain, when I attempted to palpate her left pedal pulse, she stated that she experienced 7.5/10 pain from the light touch of palpating the dorsum of her foot. 04/29/17. Seen by Randell Turner PA-C. The patient reports increased pain from her ulcers, indicating that she will not be able to tolerate a debridement today of her ulcers. She is willing, however, to undergo a limited debridement to remove some devitalized tissue and obtain a tissue sample for bacterial culture. In addition, the patient notes new ulcers of her left leg and they have been rapidly increasing in size by her report. 04/23/17. Seen by Dr. Bush. The patient does not report significant pain or increased drainage associated with bilateral dorsal toe diabetic ulcers since her last visit. 04/16/17. Seen by Dr. Bush. The patient reports some new ulcers over the left toes and does not know how long they've been there but states they're somewhat painful. She does not report any increase in drainage or pain associated with chronic right first and second toe diabetic ulcers over the past week. She states she is not checking her blood sugars routinely because she is not able to use her glucometer and she has been decreasing her smoking substantially. She does not report fevers or feeling unwell or any other acute issues today. 04/09/17. Seen by Dr. Bush. The patient does not report significant pain nor increased drainage associated with the chronic right first and second toe diabetic ulcers since her last visit. Her arterial Doppler also did not confirm clinically significant PAD.She' s completed her course of oral antibiotics that was treated in the Enterobacter positive wound culture however continues to apply topical gentamicin dressing changes. Her blood sugars again are elevated today at 256. 04/01/17. Seen by Dr. Bush. The patient can to use reports some discomfort associated with the chronic right first and second toe diabetic ulcers. She was to have an arterial Doppler today to evaluate for PAD however was unable to make the appointment due to transportation issues. She continues on ciprofloxacin to treat the Enterobacter positive wound culture taken at the initial visit. Of note, her diabetes has been very poorly controlled and she continues to smoke cigarettes. Her blood sugar today is 354. 03/24/17. Seen by Dr. Bush. The patient continues to report pain associated with the chronic right first and second toe diabetic ulcers. She continues on ciprofloxacin for the recently cultured Enterobacter positive culture. She is a report of her side effects nor fevers or feeling unwell. Also, her blood sugars continue to be poorly controlled and are well over 300 today. 03/17/17. Seen by Dr. Bush. The patient is new to our clinic and presents with chronic right first and second toe diabetic ulcers. She states that they occurred spontaneously about 1 month ago and have been slowly progressing. She reports some modest pain and drainage however does not report fevers. Her diabetes is very poorly controlled with an A1c reportedly of 14 and she smokes half pack of cigarettes daily. Her primary care provider started her on Augmentin yesterday. Past Medical History This information was obtained from the patient Patient has a medical history of: Diabetes, type 2 Diabetic Neuropathy Urinary Incontinence Fibromylagia CVA Osteoarthritis Gastro Esoph. Reflux Disease (GERD) Sleep Apnea Hyperlipidemia Depression Complaints and Symptoms This information was obtained from the patient Patient complains of: General Notes: I have reviewed and concur with the Review of Systems and Past Family Social History documents completed by the clinician, I have reviewed and concur with the Wound Assessment document completed by the clinician Cardiovascular (Central): Dyspnea on Exertion Integumentary (Hair/Skin/Nails): Open Sore Musculoskeletal: Joint Swelling Prior Wound History: Drainage, Erythema, Pain Patient denies complaints or symptoms related to: Cardiovascular (Central): Irregular heart beat Cardiovascular (Central/Peripheral): Intermittent Claudication Constitutional Symptoms (General Health): Chills, Fever Ear/Nose/Mouth/Throat: Hearing Loss / Aid Gastrointestinal (GI): Nausea / Vomiting Hematologic/Lymphatic: Bleeding / Clotting Disorders, Bleeding Tendency Neurological: Loss of Protective Sensation Prior Wound History: Bleeding Psychiatric: Memory Loss Respiratory: Oxygen Use, Shortness of Breath OBJECTIVE Constitutional Vital signs reviewed and noted. Well developed. Alert. Clean appearing.. Height/ Length: 63 in (160.02 cm), Weight: 215 lbs (97.73 kgs), BMI: 38.1, Temperature: 97.7 ?F (36.5 ?C), Pulse: 98 bpm, Respiratory Rate: 18 breaths/min, Blood Pressure: 138/83 mmHg, Pulse Oximetry: 98 %. Ears, Nose, Mouth, and Throat: No clinically significant hearing loss on informal examination. Respiratory: No respiratory distress. Even respirations and without use of accessory muscles.. Cardiovascular: 1+ pedal pulses bilaterally. 1+ bilateral lower leg edema. Gastrointestinal (GI): Obese. Nondistended.. Integumentary (Hair, Skin) Mild periwound erythema without warmth. Refer to appropriate clinician wound documentation for this visit; right 2nd toe ulcer extends to deep subcut without bone appreciated on probing; right heel and left 2nd and 3rd toe uclers extend to subcut with bases partially covered with red, friable granulation, remainder wet slough. Maceration and callus present in the periwound areas. Wound #8 Right Heel is a chronic Aguilar Grade 2 Diabetic Ulcer and has received a status of Not Healed. Subsequent wound encounter measurements are 2cm length x 2.3cm width x 0.2cm depth, with an area of 4.6 sq cm and a volume of 0.92 cubic cm. No tunneling has been noted. No sinus tract has been noted. No undermining has been noted. There is a large amount of sero-sanguineous drainage noted which has no odor. The patient reports a wound pain of level 2/10. The wound margin is attached. Wound bed has No epithelialization, No eschar, Yes slough, Yes bright red, firm granulation. The periwound skin texture is normal. The periwound skin color is normal. The periwound skin exhibited: Moist, Maceration. The periwound skin did not exhibit: Dry/Scaly. The temperature of the periwound skin is Warm. Periwound skin does not exhibit signs or symptoms of infection. Local Pulse is Palpable. Wound #9 Left, Medial Third Toe is a chronic Aguilar Grade 2 Diabetic Ulcer and has received a status of Not Healed. Subsequent wound encounter measurements are 0.8cm length x 0.9cm width x 0.4cm depth, with an area of 0.72 sq cm and a volume of 0.288 cubic cm. No tunneling has been noted. No sinus tract has been noted. No undermining has been noted. There is a small amount of sero-sanguineous drainage noted which has no odor. The patient reports a wound pain of level 0/10. The wound margin is attached. Wound bed has No epithelialization, No eschar, Yes slough, Yes bright red, firm granulation. The periwound skin texture is normal. The periwound skin color is normal. The periwound skin exhibited: Moist. The periwound skin did not exhibit: Maceration. The temperature of the periwound skin is Cool. Periwound skin does not exhibit signs or symptoms of infection. Local Pulse is Palpable. Wound #11 Right, Dorsal Second Toe is a chronic Aguilar Grade 2 Diabetic Ulcer and has received a status of Not Healed. Subsequent wound encounter measurements are 0.3cm length x 0.2cm width x 0.5cm depth, with an area of 0.06 sq cm and a volume of 0.03 cubic cm. Bone is exposed. No tunneling has been noted. No sinus tract has been noted. No undermining has been noted. There is a scant amount of sanguineous drainage noted which has no odor. The patient reports a wound pain of level 0/10. The wound margin is attached. Wound bed has No epithelialization, Yes eschar, Yes slough, No granulation. The periwound skin texture is normal. The periwound skin color is normal. The periwound skin exhibited: Moist. The periwound skin did not exhibit: Maceration. The temperature of the periwound skin is Cool. Periwound skin does not exhibit signs or symptoms of infection. Local Pulse is Palpable. Neurological: Cranial nerves grossly intact with symmetric function normal by informal observation.. ASSESSMENT Active Problems ICD-10 (Encounter Diagnosis) E11.621 - Type 2 diabetes mellitus with foot ulcer (Encounter Diagnosis) L97.512 - Non-pressure chronic ulcer of other part of right foot with fat layer exposed (Encounter Diagnosis) L97.412 - Non-pressure chronic ulcer of right heel and midfoot with fat layer exposed (Encounter Diagnosis) L97.522 - Non-pressure chronic ulcer of other part of left foot with fat layer exposed (Encounter Diagnosis) B95.62 - Methicillin resistant Staphylococcus aureus infection as the cause of diseases classified elsewhere (Encounter Diagnosis) B95.4 - Other streptococcus as the cause of diseases classified elsewhere PROCEDURES Wound #8 Wound #8 (Diabetic Ulcer) is located on the right heel. A skin/subcutaneous tissue level surgical debridement with a total area debrided of 4.6 sq cm was performed by Raphael Bush MD. Subcutaneous was removed along with devitalized tissue: slough. The following instrument(s) were used: curette. Pain control was achieved using 2% Lido. A time out was conducted prior to the start of the procedure. A minimal amount of bleeding was controlled with pressure. The procedure was tolerated well with a pain level of 5 throughout and a pain level of 3 following the procedure. Post Debridement Measurements: 2cm length x 2.3cm width x 0.2cm depth; with an area of 4.6 sq cm and a volume of 0.92 cubic cm; Wound #8 (Diabetic Ulcer) is located on the right heel. A Disposable Wound Vac Application < 50 Sq Cm procedure was performed for the lower left extremity by Raphael Bush MD. A time out was conducted prior to the start of the procedure. The procedure was tolerated well. General Notes: Wilfredo 4x8 Wound #9 Wound #9 (Diabetic Ulcer) is located on the left, medial third toe. A skin/ subcutaneous tissue level surgical debridement with a total area debrided of 0.72 sq cm was performed by Raphael Bush MD. Subcutaneous was removed along with devitalized tissue: exudate and slough. The following instrument(s) were used: curette. Pain control was achieved using 2% Lido. A time out was conducted prior to the start of the procedure. No bleeding occurred. The procedure was tolerated well with a pain level of 0 throughout and a pain level of 0 following the procedure. Post Debridement Measurements: 0.8cm length x 0.9cm width x 0.4cm depth; with an area of 0.72 sq cm and a volume of 0.288 cubic cm; Additional Information Muscle fascia or bone removed and sent to pathology?: No Muscle fascia or bone removed and sent to pathology?: No PLAN Wound Orders: Wound #8 Right Heel Dressings Negative Pressure Wound Therapy - Wilfredo 4x[address] Follow-Up Appointments Return Appointment: - - one week Other information: If you develop fever, chills, increased pain, drainage, redness or swelling please call our office. If after hours, respond to the ER. Should you experience any significant changes in your wound(s) or have any questions regarding your home care instructions please contact the wound center @ [phone]. If after hours, contact your primary care physician or go to the hospital emergency room. Wound #9 Left, Medial Third Toe Cleanser Cleanse Wound: - Normal saline Topical Treatments Antibiotic/Antimicrobial Ointment/Cream. - Gentmicin Dressings Primary dressing: - Foam and intra-dry Cover and secure with: - Conform, Hypafix and tubular net Change Dressing: - Every day Follow-Up Appointments Return Appointment: - - one week Other information: If you develop fever, chills, increased pain, drainage, redness or swelling please call our office. If after hours, respond to the ER. Should you experience any significant changes in your wound(s) or have any questions regarding your home care instructions please contact the wound center @ [phone]. If after hours, contact your primary care physician or go to the hospital emergency room. Wound #11 Right, Dorsal Second Toe Cleanser Cleanse Wound: - Normal saline Topical Treatments Antibiotic/Antimicrobial Ointment/Cream. - Gentmicin Dressings Primary dressing: - Foam and intra-dry Cover and secure with: - Conform, Hypafix and tubular net Change Dressing: - Every day Negative Pressure Wound Therapy - WILFREDO Follow-Up Appointments Return Appointment: - - one week Other information: If you develop fever, chills, increased pain, drainage, redness or swelling please call our office. If after hours, respond to the ER. Should you experience any significant changes in your wound(s) or have any questions regarding your home care instructions please contact the wound center @ [phone]. If after hours, contact your primary care physician or go to the hospital emergency room. Radiology: X-ray, toes - x-ray to right second toe. I've reviewed the clinician's documentation and agree with the evaluation and plan as written. In addition the patient's ulcers demonstrate evidence of non-viable devitalized tissue and they will continue to benefit from sharp debridement to help promote granulation and expedite healing. Negative pressure wound therapy will be utilized to facilitate granulation and removal of exudate and infectious material with the goal of expediting wound healing. Also, the patient will continue on doxycycline and I've ordered an xray to evaluate for possible osteomyelitis of the left 2nd toe due to the depth of the ulcer noted on exam today. Electronic Signature(s) Signed By: Date: Raphael Bush MD 10/03/2017 17:52:31 Entered By: Raphael Bush on 10/03/2017 17:48:23
== END ==
PROVIDERS: Family Provider Family Medicine; PCP Family Medicine; Visit Provider Internal Medicine
DX: Z48.817 Encounter for surgical aftercare following surgery on the skin and subcutaneous tissue (principal); I87.2 Venous insufficiency (chronic) (peripheral)
CPT/HCPCS: 11042; 97607

== ENCOUNTER → 2017-10-01 11:06 | Outpatient (CLI) | payer OTHER, MEDICAID, SELFPAY ==
--- NOTE | 2017-10-01 | DI.RAD.S_ITS ---
PROCEDURE: XR TOE RT MIN 2V INDICATIONS: 57 year-old female with diabetic foot ulcer of the distal second toe. TECHNIQUE: 2 views of the right second toe(s) acquired. COMPARISON: [facility], MR, FOOT W&WO CONTRAST, 07/20/2017, 10:49. [facility], CR, FOOT 3V RIGHT, 06/24/2017, 11:55. [facility], CR, TOE MINIMUM 2 VIEWS RIGHT, 03/24/2017, 10:24. FINDINGS: Bones: No fractures or dislocations. The second distal phalanx demonstrates no cortical destruction. No bony erosions. No suspicious bony lesions. Soft tissues: No suspicious soft tissue densities. IMPRESSION: No radiographic evidence for advanced bony infection of the second toe. Radiographs would have decreased sensitivity for early osteomyelitis. Dictated by: Luis Delacruz M.D. on 10/01/2017 at 13:49 Approved by: Luis Delacruz M.D. on 10/01/2017 at 13:51
== END ==
PROVIDERS: Family Provider Family Medicine; PCP Family Medicine; Visit Provider Internal Medicine
DX: E11.621 Type 2 diabetes mellitus with foot ulcer (principal)
CPT/HCPCS: 11042; 73660; 97607

== ENCOUNTER → 2017-10-08 09:29 | Outpatient (CLI) | payer OTHER, MEDICAID, SELFPAY ==
--- NOTE | 2017-10-08 | OV.WND_ITS ---
Progress Note Details Patient Name: Ariana Causey Patient Number: [id number] PatientPatientDate: 10/08/2017 Clinician: Clara Espino Physician / Reference Assistant: Raphael Bush SUBJECTIVE Chief Complaint This information was obtained from the patient Non-healing wound to right great toe and second toe. Allergies Sulfa (Sulfonamide Antibiotics), Vicodin HPI This information was obtained from the patient 10/08/17. Seen by Dr. Bush. The patient continues on doxycycline for the recent MRSA and Strep positive wound culture although she should have completed this by now. She feels she may have missed a few doses and of note is also not checking her blood glucose at home. She does not report significant pain or drainage associated with the bilateral diabetic foot ulcers however and is tolerating NPWT treating the right heel ulcer without difficulty. He blood sugar is again elevated at 261 and she's to have an A1c repeated next week. 10/01/17. Seen by Dr. Bush. The patient's now on doxycycline again for MRSA and Streptococcus species cultured from the right 2nd toe diabetic ulcer although there's intermediate resistance noted on the culture sensitivies. She does not report increased pain or drainage from this site nor the right heel or left 2nd and 3rd toe diabetic foot ulcers and she's tolerating the antibiotic without reporting adverse side effects. 09/24/17. Seen by Randell Turner PA-C. The patient reports high blood sugars and increased drainage from her left foot diabetic ulcers. 09/17/17. Seen by Dr. Bush. The patient reports pain associated with the chronic left 3rd and 4th toe and right 2nd toe diabetic ulcers since her last visit and staff report significant maceration in these periulcer areas. Otherwise she'll complete her course of antibiotics that's treating the recent MRSA positive wound culture and is tolerating the wound vac overlying the right lateral heel diabetic ulcer. Her blood sugar is again over 300 today and she states she forgot to take her Lantus this morning. 09/10/17. Seen by Dr. Bush. The patient's now on doxycycline for the MRSA positive culture taken from the chronic right lateral heel diabetic ulcer last week. She does not report adverse side effects or other acute issues regarding the remaining left and right foot diabetic ulcers. Her blood sugars are again over 300 today which she attributes to eating strawberries this morning. 09/03/17. Seen by Dr. Bush. The patient reports some increased drainage associated with the bilateral diabetic foot ulcers since her last visit and she's still not checking blood sugars at home as recommended. Otherwise she's tolerating negative pressure wound therapy without difficulty and does not report any acute issues at this time. 08/27/17. Seen by Dr. Bush. The patient does not report significant pain nor drainage associated with the bilateral diabetic foot ulcers since her last visit and she tolerated negative pressure wound therapy of the right lateral heel diabetic ulcer without difficulty. 08/20/17. Seen by Dr. Bush. The patient does not report significant pain nor drainage associated with the bilateral diabetic foot ulcers since her last visit and she tolerated negative pressure wound therapy of the right lateral heel diabetic ulcer without difficulty. 08/13/17. Seen by Dr. Bush. The patient does not report significant pain nor drainage associated with the bilateral diabetic foot ulcers since her last visit and she tolerated negative pressure wound therapy of the right lateral heel diabetic ulcer without difficulty. Also, her blood sugars are improving although are still elevated at 204 today. 08/06/17. Seen by Dr. Bush. The patient does not report significant pain nor drainage associated with the bilateral diabetic foot ulcers since her last visit and she tolerated negative pressure wound therapy of the right lateral heel diabetic ulcer without difficulty. 07/30/17. Seen by Dr. Bush. The patient does not report significant pain nor drainage associated with the bilateral diabetic foot ulcers since her last visit and she tolerated negative pressure wound therapy of the right lateral heel diabetic ulcer without difficulty. 07/23/17. Seen by Dr. Bush. The patient does not report significant pain nor drainage associated with the bilateral diabetic foot ulcers since her last visit. Her MRI did not indicate osteo-myelitis of the right heel and she's been off of Zyvox that was treated in the recent MRSA infection for over a week. She has continued to apply topical gentamicin to the ulcers as recommended. Of note, her blood sugar is elevated again today at 227 which has been an ongoing issue since she's been attending our clinic. 07/16/17. Seen by Dr. Bush. The patient continues to report improvement in terms of pain and drainage associated with the chronic right and left foot diabetic ulcer since her last visit. She's completed a course of Zyvox that's been treating the recent MRSA positive wound culture of the right heel and does not report adverse side effects. She also has an MRI of the heel next week to evaluate for possible osteomyelitis. 07/13/17. Seen by Dr. Bush. The patient reports significant improvement in terms of her right heel pain since starting on Zyvox last week. She also feels in general the bilateral diabetic foot ulcers are draining less and improving. Her A1c was very high and her primary care provider increased her Lantus to 40 units twice daily. 07/09/17. Seen by Dr. Bush. The patient has not yet picked up her prescription for Zyvox which was approved yesterday to treat the right lateral heel MRSA positive wound culture. She does report increased pain or drainage associated with either the left or right foot diabetic ulcers and her blood sugars are just over 200 today which is an improvement. She is to follow-up with primary care provider today also noting her chronically elevated blood sugars and need for improving terms of her diabetes management in general. 07/06/17. Seen by Dr. Bush. The patient continues to report significant pain associated with bilateral right heel diabetic foot ulcer over the past week. Her wound culture grew a very resistant MRSA and she is not currently on systemic antibiotics. She does not report seeing any pain or drainage associated with the other right and left foot diabetic ulcers. As a side note, the patient states that her 10-year-old grandson is staying with her and has been helping with her insulin. 07/02/17. Seen by Dr. Bush. The patient's blood sugar 316 today and she still not checking them daily at home is recommended. She does not report significant pain or increased drainage associated with bilateral right and left foot diabetic ulcers since her last visit. 06/25/17. She will Dr. Bush. The patient continues on doxycycline for the MRSA positive culture taken from her right foot diabetic ulcer. She does not report increased drainage or pain associated with the bilateral diabetic foot ulcers and her x-ray of the right heel did not confirm osteomyelitis. Her blood sugars continue to be consistently around 250 and she is now checking them daily with the help of her caregiver. 06/18/16. Seen by JED Ruffin. The patient denies pain or increased drainage associated with bilateral diabetic foot ulcers. She was started on Doxycycline last week per MRSA culture. She takes her last dose today. Her blood sugar in clinic today was 255. She continues to be inconsistent with checking her blood sugars at home and continues to smoke despite being counseled on the associated negative effects on wound healing. 06/11/17. Seen by Dr. Bush. The patient does not report pain or increased drainage associated with bilateral diabetic foot ulcers. She has not picked up her antibiotic prescription to treat the recently cultured MRSA. Her blood sugar is 267 today following having a cookie for breakfast and she is also not checking her blood sugars routinely despite taking insulin. Of note, she has shown a pattern of noncompliance since establishing care at our clinic. She does not report fevers or feeling unwell in general. 06/04/17. Seen by Randell Turner PA-C. The patient reports no increase in drainage from her bilateral diabetic foot ulcers. Her CT Angiogram did not show hemodynamically significant stenosis or occlusions of her lower extremity arteries. She has not attempted to make an appointment to see her PCP regarding her persistent hyperglycemia. She continues smoking cigarettes and does not indicate a willingness to cut down or quit to help her ulcers heal. In addition, when a dog hair was pulled from her ulcer today she reported that I may have let my dog lay on my feet when I didn't have a bandage on. 05/28/17. Seen by Randell Turner PA-C. The patient reports stable drainage and pain from her diabetic foot ulcers. She initially refuses to have her blood sugar taken today citing having just eaten a box of candy. She has not attempted to make an appointment with her PCP to discuss her blood sugars. She continues on doxycycline for her ulcer infection and her CT angiogram to evaluate her PAD is scheduled for next week. In addition she continues smoking cigarettes. 05/18/17. Seen by Randell Turner PA-C. The patient reports decreased ulcer pain and stable drainage. Her blood sugars are reportedly over 200 and she has not made an appointment with her PCP to address this as instructed. 05/11/17. Seen by Randell Turner PA-C. The patient reports a decrease in ulcer pain from her bilateral lower extremity ulcers since taking her antibiotics. Her blood sugars continue to be over 150. 05/07/17. Seen by Randell Turner PA-C. The patient reports that her blood sugars have never ever been below 150 and that she has not yet begun taking the Doxycycline I have prescribed. She is willing to undergo debridement but is concerned about pain. Of note regarding pain, when I attempted to palpate her left pedal pulse, she stated that she experienced 7.5/10 pain from the light touch of palpating the dorsum of her foot. 04/29/17. Seen by Randell Turner PA-C. The patient reports increased pain from her ulcers, indicating that she will not be able to tolerate a debridement today of her ulcers. She is willing, however, to undergo a limited debridement to remove some devitalized tissue and obtain a tissue sample for bacterial culture. In addition, the patient notes new ulcers of her left leg and they have been rapidly increasing in size by her report. 04/23/17. Seen by Dr. Bush. The patient does not report significant pain or increased drainage associated with bilateral dorsal toe diabetic ulcers since her last visit. 04/16/17. Seen by Dr. Bush. The patient reports some new ulcers over the left toes and does not know how long they've been there but states they're somewhat painful. She does not report any increase in drainage or pain associated with chronic right first and second toe diabetic ulcers over the past week. She states she is not checking her blood sugars routinely because she is not able to use her glucometer and she has been decreasing her smoking substantially. She does not report fevers or feeling unwell or any other acute issues today. 04/09/17. Seen by Dr. Bush. The patient does not report significant pain nor increased drainage associated with the chronic right first and second toe diabetic ulcers since her last visit. Her arterial Doppler also did not confirm clinically significant PAD.She' s completed her course of oral antibiotics that was treated in the Enterobacter positive wound culture however continues to apply topical gentamicin dressing changes. Her blood sugars again are elevated today at 256. 04/01/17. Seen by Dr. Bush. The patient can to use reports some discomfort associated with the chronic right first and second toe diabetic ulcers. She was to have an arterial Doppler today to evaluate for PAD however was unable to make the appointment due to transportation issues. She continues on ciprofloxacin to treat the Enterobacter positive wound culture taken at the initial visit. Of note, her diabetes has been very poorly controlled and she continues to smoke cigarettes. Her blood sugar today is 354. 03/24/17. Seen by Dr. Bush. The patient continues to report pain associated with the chronic right first and second toe diabetic ulcers. She continues on ciprofloxacin for the recently cultured Enterobacter positive culture. She is a report of her side effects nor fevers or feeling unwell. Also, her blood sugars continue to be poorly controlled and are well over 300 today. 03/17/17. Seen by Dr. Bush. The patient is new to our clinic and presents with chronic right first and second toe diabetic ulcers. She states that they occurred spontaneously about 1 month ago and have been slowly progressing. She reports some modest pain and drainage however does not report fevers. Her diabetes is very poorly controlled with an A1c reportedly of 14 and she smokes half pack of cigarettes daily. Her primary care provider started her on Augmentin yesterday. Past Medical History This information was obtained from the patient Patient has a medical history of: Diabetes, type 2 Diabetic Neuropathy Urinary Incontinence Fibromylagia CVA Osteoarthritis Gastro Esoph. Reflux Disease (GERD) Sleep Apnea Hyperlipidemia Depression Complaints and Symptoms This information was obtained from the patient Patient complains of: General Notes: I have reviewed and concur with the Review of Systems and Past Family Social History documents completed by the clinician, I have reviewed and concur with the Wound Assessment document completed by the clinician Cardiovascular (Central): Dyspnea on Exertion Integumentary (Hair/Skin/Nails): Open Sore Musculoskeletal: Joint Swelling Prior Wound History: Drainage, Erythema, Pain Patient denies complaints or symptoms related to: Cardiovascular (Central): Irregular heart beat Cardiovascular (Central/Peripheral): Intermittent Claudication Constitutional Symptoms (General Health): Chills, Fever Ear/Nose/Mouth/Throat: Hearing Loss / Aid Gastrointestinal (GI): Nausea / Vomiting Hematologic/Lymphatic: Bleeding / Clotting Disorders, Bleeding Tendency Neurological: Loss of Protective Sensation Prior Wound History: Bleeding Psychiatric: Memory Loss Respiratory: Oxygen Use, Shortness of Breath OBJECTIVE Constitutional BP elevated; Afebrile; Alert and in no distress. Well developed. Alert. Clean appearing.. Height/Length: 63 in (160.02 cm), Weight: 215 lbs (97.73 kgs), BMI: 38.1, Temperature: 98.5 ?F (36.94 ?C), Pulse: 98 bpm, Respiratory Rate: 18 breaths/min, Blood Pressure: 137/90 mmHg, Capillary Blood Glucose: 261 mg/dl, Pulse Oximetry: 96 %. Ears, Nose, Mouth, and Throat: No clinically significant hearing loss on informal examination. Respiratory: No respiratory distress. Even respirations and without use of accessory muscles.. Cardiovascular: 1+ bilateral lower leg edema. Gastrointestinal (GI): Obese. Nondistended.. Integumentary (Hair, Skin) Mild periwound erythema without warmth. Refer to appropriate clinician wound documentation for this visit; right and left foot ulcers extend to subcut with bases partially covered with pink granulation, remainder fibrin and slough. Maceration present in the periwound areas. Wound #8 Right Heel is a chronic Aguilar Grade 2 Diabetic Ulcer and has received a status of Not Healed. Subsequent wound encounter measurements are 1.7cm length x 1.7cm width x 0.2cm depth, with an area of 2.89 sq cm and a volume of 0.578 cubic cm. No tunneling has been noted. No sinus tract has been noted. No undermining has been noted. There is a moderate amount of sero-sanguineous drainage noted which has no odor. The patient reports a wound pain of level 2/10. The wound margin is attached. Wound bed has No epithelialization, No eschar, Yes slough, Yes bright red, firm granulation. The periwound skin texture is normal. The periwound skin color is normal. The periwound skin exhibited: Moist, Maceration. The periwound skin did not exhibit: Dry/Scaly. The temperature of the periwound skin is Warm. Periwound skin does not exhibit signs or symptoms of infection. Local Pulse is Palpable. Wound #9 Left, Medial Third Toe is a chronic Aguilar Grade 2 Diabetic Ulcer and has received a status of Not Healed. Subsequent wound encounter measurements are 0.3cm length x 0.4cm width x 0.3cm depth, with an area of 0.12 sq cm and a volume of 0.036 cubic cm. No tunneling has been noted. No sinus tract has been noted. No undermining has been noted. There is a small amount of sero-sanguineous drainage noted which has no odor. The patient reports a wound pain of level 0/10. The wound margin is attached. Wound bed has No epithelialization, No eschar, Yes slough, No granulation. The periwound skin exhibited: Edema, Moist, Erythema. The periwound skin did not exhibit: Maceration. The temperature of the periwound skin is Cool. Periwound skin does not exhibit signs or symptoms of infection. Local Pulse is Palpable. Wound #11 Right, Dorsal Second Toe is a chronic Aguilar Grade 2 Diabetic Ulcer and has received a status of Not Healed. Subsequent wound encounter measurements are 0.1cm length x 0.1cm width x 0.1cm depth, with an area of 0.01 sq cm and a volume of 0.001 cubic cm. Bone is exposed. No tunneling has been noted. No sinus tract has been noted. No undermining has been noted. There is a scant amount of sanguineous drainage noted which has no odor. The patient reports a wound pain of level 0/10. The wound margin is attached. Wound bed has No epithelialization, Yes eschar, Yes slough, No granulation. The periwound skin texture is normal. The periwound skin color is normal. The periwound skin exhibited: Moist. The periwound skin did not exhibit: Maceration. The temperature of the periwound skin is Cool. Periwound skin does not exhibit signs or symptoms of infection. Local Pulse is Palpable. Neurological: Cranial nerves grossly intact with symmetric function normal by informal observation.. ASSESSMENT Active Problems ICD-10 (Encounter Diagnosis) E11.621 - Type 2 diabetes mellitus with foot ulcer (Encounter Diagnosis) L97.512 - Non-pressure chronic ulcer of other part of right foot with fat layer exposed (Encounter Diagnosis) L97.412 - Non-pressure chronic ulcer of right heel and midfoot with fat layer exposed (Encounter Diagnosis) L97.522 - Non-pressure chronic ulcer of other part of left foot with fat layer exposed (Encounter Diagnosis) B95.62 - Methicillin resistant Staphylococcus aureus infection as the cause of diseases classified elsewhere (Encounter Diagnosis) B95.4 - Other streptococcus as the cause of diseases classified elsewhere (Encounter Diagnosis) Z91.19 - Patient's noncompliance with other medical treatment and regimen PROCEDURES Wound #8 Wound #8 (Diabetic Ulcer) is located on the right heel. A skin/subcutaneous tissue level surgical debridement with a total area debrided of 2.89 sq cm was performed by Raphael Bush MD. Subcutaneous was removed along with devitalized tissue: slough. The following instrument(s) were used: curette. Pain control was achieved using 4% Lido. A time out was conducted prior to the start of the procedure. A minimal amount of bleeding was controlled with n/a. The procedure was tolerated well with a pain level of 0 throughout and a pain level of 0 following the procedure. Post Debridement Measurements: 1.7cm length x 1.7cm width x 0.3cm depth; with an area of 2.89 sq cm and a volume of 0.867 cubic cm; Wound #8 (Diabetic Ulcer) is located on the right heel. A Disposable Wound Vac Application < 50 Sq Cm procedure was performed for the lower right extremity by Raphael Bush MD. A time out was conducted prior to the start of the procedure. The procedure was tolerated well. General Notes: WILFREDO 6x6 Wound #9 Wound #9 (Diabetic Ulcer) is located on the left, medial third toe. A skin/ subcutaneous tissue level surgical debridement with a total area debrided of 0.12 sq cm was performed by Raphael Bush MD. Subcutaneous was removed along with devitalized tissue: slough. The following instrument(s) were used: curette. Pain control was achieved using 4% Lido. A time out was conducted prior to the start of the procedure. A minimal amount of bleeding was controlled with n/a. The procedure was tolerated well with a pain level of 0 throughout and a pain level of 0 following the procedure. Post Debridement Measurements: 0.3cm length x 0.4cm width x 0.4cm depth; with an area of 0.12 sq cm and a volume of 0.048 cubic cm; Wound #11 Wound #11 (Diabetic Ulcer) is located on the right, dorsal second toe. A skin/ subcutaneous tissue level surgical debridement with a total area debrided of 0.02 sq cm was performed by Raphael Bush MD. Subcutaneous was removed. The following instrument(s) were used: curette. Pain control was achieved using 4% Lido. A time out was conducted prior to the start of the procedure. A minimal amount of bleeding was controlled with n/a. The procedure was tolerated well with a pain level of 0 throughout and a pain level of 0 following the procedure. Post Debridement Measurements: 0.1cm length x 0.2cm width x 0.2cm depth; with an area of 0.02 sq cm and a volume of 0.004 cubic cm; Additional Information Muscle fascia or bone removed and sent to pathology?: No Muscle fascia or bone removed and sent to pathology?: No Muscle fascia or bone removed and sent to pathology?: No PLAN Wound Orders: Wound #8 Right Heel Anesthetic Topical Xylocaine to wound bed. Cleanser Cleanse Wound: - Normal saline Topical Treatments Antibiotic/Antimicrobial Ointment/Cream. - Gentmicin Dressings Negative Pressure Wound Therapy - Wilfredo 4x[address] Wound #9 Left, Medial Third Toe Anesthetic Topical Xylocaine to wound bed. Cleanser Cleanse Wound: - Normal saline Topical Treatments Antibiotic/Antimicrobial Ointment/Cream. - Gentmicin Dressings Primary dressing: - Foam and intra-dry Cover and secure with: - Conform, Hypafix and tubular net Change Dressing: - Every day Wound #11 Right, Dorsal Second Toe Anesthetic Topical Xylocaine to wound bed. Cleanser Cleanse Wound: - Normal saline Topical Treatments Antibiotic/Antimicrobial Ointment/Cream. - Gentmicin Dressings Primary dressing: - Foam and intra-dry Cover and secure with: - Conform, Hypafix and tubular net Change Dressing: - Every day Negative Pressure Wound Therapy - WILFREDO Additional Orders: Follow-Up Appointments Return Appointment: - - one week Other information: If you develop fever, chills, increased pain, drainage, redness or swelling please call our office. If after hours, respond to the ER. Should you experience any significant changes in your wound(s) or have any questions regarding your home care instructions please contact the wound center @ [phone]. If after hours, contact your primary care physician or go to the hospital emergency room. Scribing Attestation I attest, as the nurse, that I scribed these orders for the physician. I've reviewed the clinician's documentation and agree with the evaluation and plan as written. In addition the patient's ulcers demonstrate evidence of non-viable devitalized tissue and they will continue to benefit from sharp debridement to help promote granulation and expedite healing. Negative pressure wound therapy will be utilized to facilitate granulation and removal of exudate and infectious material with the goal of expediting wound healing. Also, the patient will complete her course of doxycycline as prescribed and has been encouraged to work with her PCP regarding monitoring her blood sugars routinely. Electronic Signature(s) Signed By: Date: Raphael Bush MD 10/08/2017 15:59:11 Entered By: Raphael Bush on 10/08/2017 14:28:10
== END ==
PROVIDERS: Family Provider Family Medicine; PCP Family Medicine; Visit Provider Internal Medicine
DX: E11.621 Type 2 diabetes mellitus with foot ulcer (principal); L97.512 Non-pressure chronic ulcer of other part of right foot with fat layer exposed; L97.412 Non-pressure chronic ulcer of right heel and midfoot with fat layer exposed; L97.522 Non-pressure chronic ulcer of other part of left foot with fat layer exposed; B95.62 Methicillin resistant Staphylococcus aureus infection as the cause of diseases classified elsewhere; B95.4 Other streptococcus as the cause of diseases classified elsewhere; Z91.19 Patient's noncompliance with other medical treatment and regimen; E11.65 Type 2 diabetes mellitus with hyperglycemia
CPT/HCPCS: 11042; 97607

== ENCOUNTER → 2017-10-15 10:08 | Outpatient (CLI) | payer OTHER, MEDICAID, SELFPAY | PROVIDERS: Family Provider Family Medicine; PCP Family Medicine; Visit Provider Internal Medicine | DX: E11.621 Type 2 diabetes mellitus with foot ulcer (principal); L97.512 Non-pressure chronic ulcer of other part of right foot with fat layer exposed; L97.412 Non-pressure chronic ulcer of right heel and midfoot with fat layer exposed; L97.522 Non-pressure chronic ulcer of other part of left foot with fat layer exposed; Z91.19 Patient's noncompliance with other medical treatment and regimen; L08.9 Local infection of the skin and subcutaneous tissue, unspecified | CPT/HCPCS: 11042; 87070; 87075; 87077; 87147; 87186; 87205 ==

== ENCOUNTER → 2017-10-22 11:05 | Outpatient (CLI) | payer OTHER, MEDICAID, SELFPAY ==
--- NOTE | 2017-10-22 | OV.WND_ITS ---
Progress Note Details Patient Name: Ariana Causey Patient Number: [id number] PatientPatientDate: 10/22/2017 Clinician: Romana Heath Clinician Cosigner: Joselin Gilliland Physician / [employer] Administrator: Raphael Bush SUBJECTIVE Chief Complaint This information was obtained from the patient Non-healing wound to right great toe and second toe. Allergies Sulfa (Sulfonamide Antibiotics), Vicodin HPI This information was obtained from the patient 10/22/17. Seen by Dr. Bush. The patient continues to report some pain associated with the chronic right heel diabetic ulcer but none with the remaining right 2nd toe nor left 3rd and 4th toe diabetic ulcers. Her heel ulcer wound culture grew MRSA again and she's not currently on antibiotics. She's still not checking her blood sugars although is taking insulin and she has an appointment with her PCP to discuss getting another glucometer. 10/15/17. Seen by Dr. Bush. The patient continues to report some pain associated with the chronic right heel diabetic ulcer but none with the remaining right 2nd toe nor left 3rd and 4th toe diabetic ulcers. Of note, she restarted taking her insulin as prescribed with the assistance of her caregiver however they're not checking blood sugars when taking the insulin. 10/08/17. Seen by Dr. Bush. The patient continues on doxycycline for the recent MRSA and Strep positive wound culture although she should have completed this by now. She feels she may have missed a few doses and of note is also not checking her blood glucose at home. She does not report significant pain or drainage associated with the bilateral diabetic foot ulcers however and is tolerating NPWT treating the right heel ulcer without difficulty. He blood sugar is again elevated at 261 and she's to have an A1c repeated next week. 10/01/17. Seen by Dr. Bush. The patient's now on doxycycline again for MRSA and Streptococcus species cultured from the right 2nd toe diabetic ulcer although there's intermediate resistance noted on the culture sensitivies. She does not report increased pain or drainage from this site nor the right heel or left 2nd and 3rd toe diabetic foot ulcers and she's tolerating the antibiotic without reporting adverse side effects. 09/24/17. Seen by Randell Turner PA-C. The patient reports high blood sugars and increased drainage from her left foot diabetic ulcers. 09/17/17. Seen by Dr. Bush. The patient reports pain associated with the chronic left 3rd and 4th toe and right 2nd toe diabetic ulcers since her last visit and staff report significant maceration in these periulcer areas. Otherwise she'll complete her course of antibiotics that's treating the recent MRSA positive wound culture and is tolerating the wound vac overlying the right lateral heel diabetic ulcer. Her blood sugar is again over 300 today and she states she forgot to take her Lantus this morning. 09/10/17. Seen by Dr. Bush. The patient's now on doxycycline for the MRSA positive culture taken from the chronic right lateral heel diabetic ulcer last week. She does not report adverse side effects or other acute issues regarding the remaining left and right foot diabetic ulcers. Her blood sugars are again over 300 today which she attributes to eating strawberries this morning. 09/03/17. Seen by Dr. Bush. The patient reports some increased drainage associated with the bilateral diabetic foot ulcers since her last visit and she's still not checking blood sugars at home as recommended. Otherwise she's tolerating negative pressure wound therapy without difficulty and does not report any acute issues at this time. 08/27/17. Seen by Dr. Bush. The patient does not report significant pain nor drainage associated with the bilateral diabetic foot ulcers since her last visit and she tolerated negative pressure wound therapy of the right lateral heel diabetic ulcer without difficulty. 08/20/17. Seen by Dr. Bush. The patient does not report significant pain nor drainage associated with the bilateral diabetic foot ulcers since her last visit and she tolerated negative pressure wound therapy of the right lateral heel diabetic ulcer without difficulty. 08/13/17. Seen by Dr. Bush. The patient does not report significant pain nor drainage associated with the bilateral diabetic foot ulcers since her last visit and she tolerated negative pressure wound therapy of the right lateral heel diabetic ulcer without difficulty. Also, her blood sugars are improving although are still elevated at 204 today. 08/06/17. Seen by Dr. Bush. The patient does not report significant pain nor drainage associated with the bilateral diabetic foot ulcers since her last visit and she tolerated negative pressure wound therapy of the right lateral heel diabetic ulcer without difficulty. 07/30/17. Seen by Dr. Bush. The patient does not report significant pain nor drainage associated with the bilateral diabetic foot ulcers since her last visit and she tolerated negative pressure wound therapy of the right lateral heel diabetic ulcer without difficulty. 07/23/17. Seen by Dr. Bush. The patient does not report significant pain nor drainage associated with the bilateral diabetic foot ulcers since her last visit. Her MRI did not indicate osteo-myelitis of the right heel and she's been off of Zyvox that was treated in the recent MRSA infection for over a week. She has continued to apply topical gentamicin to the ulcers as recommended. Of note, her blood sugar is elevated again today at 227 which has been an ongoing issue since she's been attending our clinic. 07/16/17. Seen by Dr. Bush. The patient continues to report improvement in terms of pain and drainage associated with the chronic right and left foot diabetic ulcer since her last visit. She's completed a course of Zyvox that's been treating the recent MRSA positive wound culture of the right heel and does not report adverse side effects. She also has an MRI of the heel next week to evaluate for possible osteomyelitis. 07/13/17. Seen by Dr. Bush. The patient reports significant improvement in terms of her right heel pain since starting on Zyvox last week. She also feels in general the bilateral diabetic foot ulcers are draining less and improving. Her A1c was very high and her primary care provider increased her Lantus to 40 units twice daily. 07/09/17. Seen by Dr. Bush. The patient has not yet picked up her prescription for Zyvox which was approved yesterday to treat the right lateral heel MRSA positive wound culture. She does report increased pain or drainage associated with either the left or right foot diabetic ulcers and her blood sugars are just over 200 today which is an improvement. She is to follow-up with primary care provider today also noting her chronically elevated blood sugars and need for improving terms of her diabetes management in general. 07/06/17. Seen by Dr. Bush. The patient continues to report significant pain associated with bilateral right heel diabetic foot ulcer over the past week. Her wound culture grew a very resistant MRSA and she is not currently on systemic antibiotics. She does not report seeing any pain or drainage associated with the other right and left foot diabetic ulcers. As a side note, the patient states that her 10-year-old grandson is staying with her and has been helping with her insulin. 07/02/17. Seen by Dr. Bush. The patient's blood sugar 316 today and she still not checking them daily at home is recommended. She does not report significant pain or increased drainage associated with bilateral right and left foot diabetic ulcers since her last visit. 06/25/17. She will Dr. Bush. The patient continues on doxycycline for the MRSA positive culture taken from her right foot diabetic ulcer. She does not report increased drainage or pain associated with the bilateral diabetic foot ulcers and her x-ray of the right heel did not confirm osteomyelitis. Her blood sugars continue to be consistently around 250 and she is now checking them daily with the help of her caregiver. 06/18/16. Seen by JED Ruffin. The patient denies pain or increased drainage associated with bilateral diabetic foot ulcers. She was started on Doxycycline last week per MRSA culture. She takes her last dose today. Her blood sugar in clinic today was 255. She continues to be inconsistent with checking her blood sugars at home and continues to smoke despite being counseled on the associated negative effects on wound healing. 06/11/17. Seen by Dr. Bush. The patient does not report pain or increased drainage associated with bilateral diabetic foot ulcers. She has not picked up her antibiotic prescription to treat the recently cultured MRSA. Her blood sugar is 267 today following having a cookie for breakfast and she is also not checking her blood sugars routinely despite taking insulin. Of note, she has shown a pattern of noncompliance since establishing care at our clinic. She does not report fevers or feeling unwell in general. 06/04/17. Seen by Randell Turner PA-C. The patient reports no increase in drainage from her bilateral diabetic foot ulcers. Her CT Angiogram did not show hemodynamically significant stenosis or occlusions of her lower extremity arteries. She has not attempted to make an appointment to see her PCP regarding her persistent hyperglycemia. She continues smoking cigarettes and does not indicate a willingness to cut down or quit to help her ulcers heal. In addition, when a dog hair was pulled from her ulcer today she reported that I may have let my dog lay on my feet when I didn't have a bandage on. 2/23/18. Seen by Randell Turner PA-C. The patient reports stable drainage and pain from her diabetic foot ulcers. She initially refuses to have her blood sugar taken today citing having just eaten a box of candy. She has not attempted to make an appointment with her PCP to discuss her blood sugars. She continues on doxycycline for her ulcer infection and her CT angiogram to evaluate her PAD is scheduled for next week. In addition she continues smoking cigarettes. 05/18/17. Seen by Randell Turner PA-C. The patient reports decreased ulcer pain and stable drainage. Her blood sugars are reportedly over 200 and she has not made an appointment with her PCP to address this as instructed. 05/11/17. Seen by Randell Turner PA-C. The patient reports a decrease in ulcer pain from her bilateral lower extremity ulcers since taking her antibiotics. Her blood sugars continue to be over 150. 05/07/17. Seen by Randell Turner PA-C. The patient reports that her blood sugars have never ever been below 150 and that she has not yet begun taking the Doxycycline I have prescribed. She is willing to undergo debridement but is concerned about pain. Of note regarding pain, when I attempted to palpate her left pedal pulse, she stated that she experienced 7.5/10 pain from the light touch of palpating the dorsum of her foot. 04/29/17. Seen by Randell Turner PA-C. The patient reports increased pain from her ulcers, indicating that she will not be able to tolerate a debridement today of her ulcers. She is willing, however, to undergo a limited debridement to remove some devitalized tissue and obtain a tissue sample for bacterial culture. In addition, the patient notes new ulcers of her left leg and they have been rapidly increasing in size by her report. 04/23/17. Seen by Dr. Bush. The patient does not report significant pain or increased drainage associated with bilateral dorsal toe diabetic ulcers since her last visit. 04/16/17. Seen by Dr. Bush. The patient reports some new ulcers over the left toes and does not know how long they've been there but states they're somewhat painful. She does not report any increase in drainage or pain associated with chronic right first and second toe diabetic ulcers over the past week. She states she is not checking her blood sugars routinely because she is not able to use her glucometer and she has been decreasing her smoking substantially. She does not report fevers or feeling unwell or any other acute issues today. 04/09/17. Seen by Dr. Bush. The patient does not report significant pain nor increased drainage associated with the chronic right first and second toe diabetic ulcers since her last visit. Her arterial Doppler also did not confirm clinically significant PAD.She' s completed her course of oral antibiotics that was treated in the Enterobacter positive wound culture however continues to apply topical gentamicin dressing changes. Her blood sugars again are elevated today at 256. 04/01/17. Seen by Dr. Bush. The patient can to use reports some discomfort associated with the chronic right first and second toe diabetic ulcers. She was to have an arterial Doppler today to evaluate for PAD however was unable to make the appointment due to transportation issues. She continues on ciprofloxacin to treat the Enterobacter positive wound culture taken at the initial visit. Of note, her diabetes has been very poorly controlled and she continues to smoke cigarettes. Her blood sugar today is 354. 03/24/17. Seen by Dr. Bush. The patient continues to report pain associated with the chronic right first and second toe diabetic ulcers. She continues on ciprofloxacin for the recently cultured Enterobacter positive culture. She is a report of her side effects nor fevers or feeling unwell. Also, her blood sugars continue to be poorly controlled and are well over 300 today. 03/17/17. Seen by Dr. Bush. The patient is new to our clinic and presents with chronic right first and second toe diabetic ulcers. She states that they occurred spontaneously about 1 month ago and have been slowly progressing. She reports some modest pain and drainage however does not report fevers. Her diabetes is very poorly controlled with an A1c reportedly of 14 and she smokes half pack of cigarettes daily. Her primary care provider started her on Augmentin yesterday. Past Medical History This information was obtained from the patient Patient has a medical history of: Diabetes, type 2 Diabetic Neuropathy Urinary Incontinence Fibromylagia CVA Osteoarthritis Gastro Esoph. Reflux Disease (GERD) Sleep Apnea Hyperlipidemia Depression Complaints and Symptoms This information was obtained from the patient Patient complains of: General Notes: I have reviewed and concur with the Review of Systems and Past Family Social History documents completed by the clinician, I have reviewed and concur with the Wound Assessment document completed by the clinician Cardiovascular (Central): Dyspnea on Exertion Integumentary (Hair/Skin/Nails): Open Sore Musculoskeletal: Joint Swelling Prior Wound History: Drainage, Erythema, Pain Patient denies complaints or symptoms related to: Cardiovascular (Central): Irregular heart beat Cardiovascular (Central/Peripheral): Intermittent Claudication Constitutional Symptoms (General Health): Chills, Fever Ear/Nose/Mouth/Throat: Hearing Loss / Aid Gastrointestinal (GI): Nausea / Vomiting Hematologic/Lymphatic: Bleeding / Clotting Disorders, Bleeding Tendency Neurological: Loss of Protective Sensation Prior Wound History: Bleeding Psychiatric: Memory Loss Respiratory: Oxygen Use, Shortness of Breath OBJECTIVE Constitutional BP elevated; Low grade fever; Alert and in no distress. Well developed. Alert. Clean appearing.. Height/Length: 63 in (160.02 cm), Weight: 215 lbs (97.73 kgs), BMI: 38.1, Temperature: 99.0 ?F (37.22 ?C), Pulse: 96 bpm, Respiratory Rate: 18 breaths/min , Blood Pressure: 136/82 mmHg, Capillary Blood Glucose: 273 mg/dl, Pulse Oximetry: 97 %. Vital Signs Notes: Glucose in clinic. Ears, Nose, Mouth, and Throat: No clinically significant hearing loss on informal examination. Respiratory: No respiratory distress. Even respirations and without use of accessory muscles.. Cardiovascular: 1+ bilateral lower leg edema. Gastrointestinal (GI): Obese. Nondistended.. Integumentary (Hair, Skin) Mild right heel periwound erythema with warmth. Refer to appropriate clinician wound documentation for this visit; right foot ulcers extend to subcut with bases partially covered with pink granulation, remainder fibrin and slough; right heel ulcer deeper than on previous review; left foot ulcers extend to dermis. Wound #8 Right Heel is a chronic Aguilar Grade 2 Diabetic Ulcer and has received a status of Not Healed. Subsequent wound encounter measurements are 1.5cm length x 1cm width x 0.2cm depth, with an area of 1.5 sq cm and a volume of 0.3 cubic cm. No tunneling has been noted. No sinus tract has been noted. No undermining has been noted. There is a moderate amount of sero-sanguineous drainage noted which has no odor. The patient reports a wound pain of level 2/10. The wound margin is attached. Wound bed has No epithelialization, No eschar, Yes slough, Yes bright red, firm granulation. The periwound skin texture is normal. The periwound skin color is normal. The periwound skin did not exhibit: Dry/Scaly, Moist, Maceration. The temperature of the periwound skin is Warm. Periwound skin does not exhibit signs or symptoms of infection. Local Pulse is Palpable. Wound #9 Left, Medial Third Toe is a chronic Aguilar Grade 2 Diabetic Ulcer and has received a status of Not Healed. Subsequent wound encounter measurements are 0.1cm length x 0.1cm width x 0.1cm depth, with an area of 0.01 sq cm and a volume of 0.001 cubic cm. No tunneling has been noted. No sinus tract has been noted. No undermining has been noted. There was no drainage noted. The patient reports a wound pain of level 0/10. The wound margin is attached. Wound bed has Yes epithelialization, No eschar, Yes slough, No granulation. The periwound skin texture is normal. The periwound skin moisture is normal. The periwound skin exhibited: Erythema. The temperature of the periwound skin is Cool. Periwound skin does not exhibit signs or symptoms of infection. Local Pulse is Palpable. Wound #11 Right, Dorsal Second Toe is a chronic Aguilar Grade 2 Diabetic Ulcer and has received a status of Not Healed. Subsequent wound encounter measurements are 0.1cm length x 0.1cm width x 0.1cm depth, with an area of 0.01 sq cm and a volume of 0.001 cubic cm. Bone is exposed. No tunneling has been noted. No sinus tract has been noted. No undermining has been noted. There was no drainage noted. The patient reports a wound pain of level 0/10. The wound margin is attached. Wound bed has Yes epithelialization , No eschar, Yes slough, No granulation. The periwound skin texture is normal. The periwound skin moisture is normal. The periwound skin color is normal. The temperature of the periwound skin is Cool. Periwound skin does not exhibit signs or symptoms of infection. Local Pulse is Palpable. Neurological: Cranial nerves grossly intact with symmetric function normal by informal observation.. ASSESSMENT Active Problems ICD-10 (Encounter Diagnosis) E11.621 - Type 2 diabetes mellitus with foot ulcer (Encounter Diagnosis) L97.512 - Non-pressure chronic ulcer of other part of right foot with fat layer exposed (Encounter Diagnosis) L97.412 - Non-pressure chronic ulcer of right heel and midfoot with fat layer exposed (Encounter Diagnosis) L97.522 - Non-pressure chronic ulcer of other part of left foot with fat layer exposed (Encounter Diagnosis) Z91.19 - Patient's noncompliance with other medical treatment and regimen (Encounter Diagnosis) B95.62 - Methicillin resistant Staphylococcus aureus infection as the cause of diseases classified elsewhere PROCEDURES Wound #8 Wound #8 (Diabetic Ulcer) is located on the right heel. A skin/subcutaneous tissue level surgical debridement with a total area debrided of 1.5 sq cm was performed by Raphael Bush MD. Subcutaneous was removed along with devitalized tissue: exudate and slough. The following instrument(s) were used: curette. Pain control was achieved using 4% Lido. A time out was conducted prior to the start of the procedure. A minimal amount of bleeding was controlled with pressure. The procedure was tolerated well with a pain level of 0 throughout and a pain level of 1 following the procedure. Post Debridement Measurements: 1.5cm length x 1cm width x 0.3cm depth; with an area of 1.5 sq cm and a volume of 0.45 cubic cm; Wound #8 (Diabetic Ulcer) is located on the right heel. A Disposable Wound Vac Application < 50 Sq Cm procedure was performed for the lower right extremity by Raphael Bush MD. A time out was conducted prior to the start of the procedure. The procedure was tolerated well. General Notes: WILFREDO 4X8 Wound #9 Wound #9 (Diabetic Ulcer) is located on the left, medial third toe. A non- selective mechanical debridement with a total area debrided of 0.01 sq cm was performed by Raphael Bush MD. Non-viable tissue was removed.The procedure was tolerated well with a pain level of 0 throughout and a pain level of 0 following the procedure. Post Debridement Measurements: 0.1cm length x 0.1cm width x 0.1cm depth; with an area of 0.01 sq cm and a volume of 0.001 cubic cm; General Notes: Callus and drainage removed Wound #11 Wound #11 (Diabetic Ulcer) is located on the right, dorsal second toe. A skin/ subcutaneous tissue level surgical debridement with a total area debrided of 0.04 sq cm was performed by Raphael Bush MD. Non-viable tissue, including subcutaneous along with devitalized tissue: exudate and slough. The following instrument(s) were used: curette. Pain control was achieved using 4% Lido. A time out was conducted prior to the start of the procedure. A minimal amount of bleeding was controlled with silver nitrate. The procedure was tolerated well with a pain level of 0 throughout and a pain level of 0 following the procedure. Post Debridement Measurements: 0.2cm length x 0.2cm width x 0.1cm depth; with an area of 0.04 sq cm and a volume of 0.004 cubic cm; PLAN Wound Orders: Wound #8 Right Heel Anesthetic Topical Xylocaine to wound bed. Cleanser Cleanse Wound: - Normal saline Dressings Negative Pressure Wound Therapy - Wilfredo 4x[address] Wound #9 Left, Medial Third Toe Anesthetic Topical Xylocaine to wound bed. Cleanser Cleanse Wound: - Normal saline Dressings Primary dressing: - Foam and intra-dry Cover and secure with: - Conform, Hypafix and tubular net Change Dressing: - Every day Wound #11 Right, Dorsal Second Toe Anesthetic Topical Xylocaine to wound bed. Cleanser Cleanse Wound: - Normal saline Dressings Primary dressing: - Foam and intra-dry Cover and secure with: - Conform, Hypafix and tubular net Change Dressing: - Every day Additional Orders: Follow-Up Appointments Return Appointment: - - one week Other information: If you develop fever, chills, increased pain, drainage, redness or swelling please call our office. If after hours, respond to the ER. Should you experience any significant changes in your wound(s) or have any questions regarding your home care instructions please contact the wound center @ [phone]. If after hours, contact your primary care physician or go to the hospital emergency room. Scribing Attestation I attest, as the nurse, that I scribed these orders for the physician. Medications prescribed: linezolid - oral 600 mg tablet twice daily for 7 days for infected ulcer starting 10/22/2017 I've reviewed the clinician's documentation and agree with the evaluation and plan as written. In addition the patient's ulcers demonstrate evidence of non-viable devitalized tissue and they will continue to benefit from sharp debridement to help promote granulation and expedite healing. Negative pressure wound therapy will be utilized to facilitate granulation and removal of exudate and infectious material with the goal of expediting wound healing. Also, I've restarted linezolid for the MRSA positive culture and based on deterioration of the right heel ulcer. Electronic Signature(s) Signed By: Date: Raphael Bush MD 10/22/2017 13:04:12 Entered By: Raphael Bush on 10/22/2017 13:01:19
== END ==
PROVIDERS: Family Provider Family Medicine; PCP Family Medicine; Visit Provider Internal Medicine
DX: E11.621 Type 2 diabetes mellitus with foot ulcer (principal); L97.512 Non-pressure chronic ulcer of other part of right foot with fat layer exposed; L97.412 Non-pressure chronic ulcer of right heel and midfoot with fat layer exposed; L97.521 Non-pressure chronic ulcer of other part of left foot limited to breakdown of skin; Z91.19 Patient's noncompliance with other medical treatment and regimen; B95.62 Methicillin resistant Staphylococcus aureus infection as the cause of diseases classified elsewhere
CPT/HCPCS: 11042; 97605

== ENCOUNTER → 2017-10-29 10:14 | Outpatient (CLI) | payer OTHER, MEDICAID, SELFPAY | PROVIDERS: Family Provider Family Medicine; PCP Family Medicine; Visit Provider Internal Medicine | DX: E11.622 Type 2 diabetes mellitus with other skin ulcer (principal); L97.412 Non-pressure chronic ulcer of right heel and midfoot with fat layer exposed; E11.621 Type 2 diabetes mellitus with foot ulcer; L97.511 Non-pressure chronic ulcer of other part of right foot limited to breakdown of skin; B95.62 Methicillin resistant Staphylococcus aureus infection as the cause of diseases classified elsewhere | CPT/HCPCS: 11042; 97597; 97607 ==

== ENCOUNTER → 2017-11-05 09:20 | Outpatient (CLI) | payer OTHER, MEDICAID, SELFPAY ==
--- NOTE | 2017-11-05 | OV.WND_ITS ---
Progress Note Details Patient Name: Ariana Causey Patient Number: [id number] PatientPatientDate: 11/05/2017 Clinician: Joselin Gilliland Physician / Sterile Processing Manager: Raphael Bush SUBJECTIVE Chief Complaint This information was obtained from the patient Non-healing wound to right great toe and second toe. Allergies Sulfa (Sulfonamide Antibiotics), Vicodin HPI This information was obtained from the patient 11/05/17. Seen by Dr. Bush. The patient's completed her course of linezolid that was given to treat the recurrent MRSA positive culture taken from the right heel diabetic ulcer. She's tolerating NPWT without difficulty and although she's now received her glucometer and supplies she's still not checking her blood sugars as recommended. 10/29/17. Seen by Dr. Bush. The patient's started her course of linezolid that' s treating the recurrent MRSA culture from the chronic right heel diabetic ulcer. She reports less pain from the site and no increase in drainage or pain associated with the left 3rd and 4th toe nor right 2nd toe diabetic ulcer as well. 10/22/17. Seen by Dr. Bush. The patient continues to report some pain associated with the chronic right heel diabetic ulcer but none with the remaining right 2nd toe nor left 3rd and 4th toe diabetic ulcers. Her heel ulcer wound culture grew MRSA again and she's not currently on antibiotics. She's still not checking her blood sugars although is taking insulin and she has an appointment with her PCP to discuss getting another glucometer. 10/15/17. Seen by Dr. Bush. The patient continues to report some pain associated with the chronic right heel diabetic ulcer but none with the remaining right 2nd toe nor left 3rd and 4th toe diabetic ulcers. Of note, she restarted taking her insulin as prescribed with the assistance of her caregiver however they're not checking blood sugars when taking the insulin. 10/08/17. Seen by Dr. Bush. The patient continues on doxycycline for the recent MRSA and Strep positive wound culture although she should have completed this by now. She feels she may have missed a few doses and of note is also not checking her blood glucose at home. She does not report significant pain or drainage associated with the bilateral diabetic foot ulcers however and is tolerating NPWT treating the right heel ulcer without difficulty. He blood sugar is again elevated at 261 and she's to have an A1c repeated next week. 10/01/17. Seen by Dr. Bush. The patient's now on doxycycline again for MRSA and Streptococcus species cultured from the right 2nd toe diabetic ulcer although there's intermediate resistance noted on the culture sensitivies. She does not report increased pain or drainage from this site nor the right heel or left 2nd and 3rd toe diabetic foot ulcers and she's tolerating the antibiotic without reporting adverse side effects. 09/24/17. Seen by Randell Turner PA-C. The patient reports high blood sugars and increased drainage from her left foot diabetic ulcers. 09/17/17. Seen by Dr. Bush. The patient reports pain associated with the chronic left 3rd and 4th toe and right 2nd toe diabetic ulcers since her last visit and staff report significant maceration in these periulcer areas. Otherwise she'll complete her course of antibiotics that's treating the recent MRSA positive wound culture and is tolerating the wound vac overlying the right lateral heel diabetic ulcer. Her blood sugar is again over 300 today and she states she forgot to take her Lantus this morning. 09/10/17. Seen by Dr. Bush. The patient's now on doxycycline for the MRSA positive culture taken from the chronic right lateral heel diabetic ulcer last week. She does not report adverse side effects or other acute issues regarding the remaining left and right foot diabetic ulcers. Her blood sugars are again over 300 today which she attributes to eating strawberries this morning. 09/03/17. Seen by Dr. Bush. The patient reports some increased drainage associated with the bilateral diabetic foot ulcers since her last visit and she's still not checking blood sugars at home as recommended. Otherwise she's tolerating negative pressure wound therapy without difficulty and does not report any acute issues at this time. 08/27/17. Seen by Dr. Bush. The patient does not report significant pain nor drainage associated with the bilateral diabetic foot ulcers since her last visit and she tolerated negative pressure wound therapy of the right lateral heel diabetic ulcer without difficulty. 08/20/17. Seen by Dr. Bush. The patient does not report significant pain nor drainage associated with the bilateral diabetic foot ulcers since her last visit and she tolerated negative pressure wound therapy of the right lateral heel diabetic ulcer without difficulty. 08/13/17. Seen by Dr. Bush. The patient does not report significant pain nor drainage associated with the bilateral diabetic foot ulcers since her last visit and she tolerated negative pressure wound therapy of the right lateral heel diabetic ulcer without difficulty. Also, her blood sugars are improving although are still elevated at 204 today. 08/06/17. Seen by Dr. Bush. The patient does not report significant pain nor drainage associated with the bilateral diabetic foot ulcers since her last visit and she tolerated negative pressure wound therapy of the right lateral heel diabetic ulcer without difficulty. 07/30/17. Seen by Dr. Bush. The patient does not report significant pain nor drainage associated with the bilateral diabetic foot ulcers since her last visit and she tolerated negative pressure wound therapy of the right lateral heel diabetic ulcer without difficulty. 07/23/17. Seen by Dr. Bush. The patient does not report significant pain nor drainage associated with the bilateral diabetic foot ulcers since her last visit. Her MRI did not indicate osteo-myelitis of the right heel and she's been off of Zyvox that was treated in the recent MRSA infection for over a week. She has continued to apply topical gentamicin to the ulcers as recommended. Of note, her blood sugar is elevated again today at 227 which has been an ongoing issue since she's been attending our clinic. 07/16/17. Seen by Dr. Bush. The patient continues to report improvement in terms of pain and drainage associated with the chronic right and left foot diabetic ulcer since her last visit. She's completed a course of Zyvox that's been treating the recent MRSA positive wound culture of the right heel and does not report adverse side effects. She also has an MRI of the heel next week to evaluate for possible osteomyelitis. 07/13/17. Seen by Dr. Bush. The patient reports significant improvement in terms of her right heel pain since starting on Zyvox last week. She also feels in general the bilateral diabetic foot ulcers are draining less and improving. Her A1c was very high and her primary care provider increased her Lantus to 40 units twice daily. 07/09/17. Seen by Dr. Bush. The patient has not yet picked up her prescription for Zyvox which was approved yesterday to treat the right lateral heel MRSA positive wound culture. She does report increased pain or drainage associated with either the left or right foot diabetic ulcers and her blood sugars are just over 200 today which is an improvement. She is to follow-up with primary care provider today also noting her chronically elevated blood sugars and need for improving terms of her diabetes management in general. 07/06/17. Seen by Dr. Bush. The patient continues to report significant pain associated with bilateral right heel diabetic foot ulcer over the past week. Her wound culture grew a very resistant MRSA and she is not currently on systemic antibiotics. She does not report seeing any pain or drainage associated with the other right and left foot diabetic ulcers. As a side note, the patient states that her 10-year-old grandson is staying with her and has been helping with her insulin. 07/02/17. Seen by Dr. Bush. The patient's blood sugar 316 today and she still not checking them daily at home is recommended. She does not report significant pain or increased drainage associated with bilateral right and left foot diabetic ulcers since her last visit. 06/25/17. She will Dr. Bush. The patient continues on doxycycline for the MRSA positive culture taken from her right foot diabetic ulcer. She does not report increased drainage or pain associated with the bilateral diabetic foot ulcers and her x-ray of the right heel did not confirm osteomyelitis. Her blood sugars continue to be consistently around 250 and she is now checking them daily with the help of her caregiver. 06/18/16. Seen by JED Ruffin. The patient denies pain or increased drainage associated with bilateral diabetic foot ulcers. She was started on Doxycycline last week per MRSA culture. She takes her last dose today. Her blood sugar in clinic today was 255. She continues to be inconsistent with checking her blood sugars at home and continues to smoke despite being counseled on the associated negative effects on wound healing. 06/11/17. Seen by Dr. Bush. The patient does not report pain or increased drainage associated with bilateral diabetic foot ulcers. She has not picked up her antibiotic prescription to treat the recently cultured MRSA. Her blood sugar is 267 today following having a cookie for breakfast and she is also not checking her blood sugars routinely despite taking insulin. Of note, she has shown a pattern of noncompliance since establishing care at our clinic. She does not report fevers or feeling unwell in general. 06/04/17. Seen by Randell Turner PA-C. The patient reports no increase in drainage from her bilateral diabetic foot ulcers. Her CT Angiogram did not show hemodynamically significant stenosis or occlusions of her lower extremity arteries. She has not attempted to make an appointment to see her PCP regarding her persistent hyperglycemia. She continues smoking cigarettes and does not indicate a willingness to cut down or quit to help her ulcers heal. In addition, when a dog hair was pulled from her ulcer today she reported that I may have let my dog lay on my feet when I didn't have a bandage on. 05/28/17. Seen by Randell Turner PA-C. The patient reports stable drainage and pain from her diabetic foot ulcers. She initially refuses to have her blood sugar taken today citing having just eaten a box of candy. She has not attempted to make an appointment with her PCP to discuss her blood sugars. She continues on doxycycline for her ulcer infection and her CT angiogram to evaluate her PAD is scheduled for next week. In addition she continues smoking cigarettes. 05/18/17. Seen by Randell Turner PA-C. The patient reports decreased ulcer pain and stable drainage. Her blood sugars are reportedly over 200 and she has not made an appointment with her PCP to address this as instructed. 05/11/17. Seen by Randell Turner PA-C. The patient reports a decrease in ulcer pain from her bilateral lower extremity ulcers since taking her antibiotics. Her blood sugars continue to be over 150. 05/07/17. Seen by Randell Turner PA-C. The patient reports that her blood sugars have never ever been below 150 and that she has not yet begun taking the Doxycycline I have prescribed. She is willing to undergo debridement but is concerned about pain. Of note regarding pain, when I attempted to palpate her left pedal pulse, she stated that she experienced 7.5/10 pain from the light touch of palpating the dorsum of her foot. 04/29/17. Seen by Randell Turner PA-C. The patient reports increased pain from her ulcers, indicating that she will not be able to tolerate a debridement today of her ulcers. She is willing, however, to undergo a limited debridement to remove some devitalized tissue and obtain a tissue sample for bacterial culture. In addition, the patient notes new ulcers of her left leg and they have been rapidly increasing in size by her report. 04/23/17. Seen by Dr. Bush. The patient does not report significant pain or increased drainage associated with bilateral dorsal toe diabetic ulcers since her last visit. 04/16/17. Seen by Dr. Bush. The patient reports some new ulcers over the left toes and does not know how long they've been there but states they're somewhat painful. She does not report any increase in drainage or pain associated with chronic right first and second toe diabetic ulcers over the past week. She states she is not checking her blood sugars routinely because she is not able to use her glucometer and she has been decreasing her smoking substantially. She does not report fevers or feeling unwell or any other acute issues today. 04/09/17. Seen by Dr. Bush. The patient does not report significant pain nor increased drainage associated with the chronic right first and second toe diabetic ulcers since her last visit. Her arterial Doppler also did not confirm clinically significant PAD.She' s completed her course of oral antibiotics that was treated in the Enterobacter positive wound culture however continues to apply topical gentamicin dressing changes. Her blood sugars again are elevated today at 256. 04/01/17. Seen by Dr. Bush. The patient can to use reports some discomfort associated with the chronic right first and second toe diabetic ulcers. She was to have an arterial Doppler today to evaluate for PAD however was unable to make the appointment due to transportation issues. She continues on ciprofloxacin to treat the Enterobacter positive wound culture taken at the initial visit. Of note, her diabetes has been very poorly controlled and she continues to smoke cigarettes. Her blood sugar today is 354. 03/24/17. Seen by Dr. Bush. The patient continues to report pain associated with the chronic right first and second toe diabetic ulcers. She continues on ciprofloxacin for the recently cultured Enterobacter positive culture. She is a report of her side effects nor fevers or feeling unwell. Also, her blood sugars continue to be poorly controlled and are well over 300 today. 03/17/17. Seen by Dr. Bush. The patient is new to our clinic and presents with chronic right first and second toe diabetic ulcers. She states that they occurred spontaneously about 1 month ago and have been slowly progressing. She reports some modest pain and drainage however does not report fevers. Her diabetes is very poorly controlled with an A1c reportedly of 14 and she smokes half pack of cigarettes daily. Her primary care provider started her on Augmentin yesterday. Past Medical History This information was obtained from the patient Patient has a medical history of: Diabetes, type 2 Diabetic Neuropathy Urinary Incontinence Fibromylagia CVA Osteoarthritis Gastro Esoph. Reflux Disease (GERD) Sleep Apnea Hyperlipidemia Depression Complaints and Symptoms This information was obtained from the patient Patient complains of: General Notes: I have reviewed and concur with the Review of Systems and Past Family Social History documents completed by the clinician, I have reviewed and concur with the Wound Assessment document completed by the clinician Cardiovascular (Central): Dyspnea on Exertion Integumentary (Hair/Skin/Nails): Open Sore Musculoskeletal: Joint Swelling Prior Wound History: Drainage, Erythema, Pain Patient denies complaints or symptoms related to: Cardiovascular (Central): Irregular heart beat Cardiovascular (Central/Peripheral): Intermittent Claudication Constitutional Symptoms (General Health): Chills, Fever Ear/Nose/Mouth/Throat: Hearing Loss / Aid Gastrointestinal (GI): Nausea / Vomiting Hematologic/Lymphatic: Bleeding / Clotting Disorders, Bleeding Tendency Neurological: Loss of Protective Sensation Prior Wound History: Bleeding Psychiatric: Memory Loss Respiratory: Oxygen Use, Shortness of Breath OBJECTIVE Constitutional Vital signs reviewed and noted. Well developed. Alert. Clean appearing.. Height/ Length: 63 in (160.02 cm), Weight: 215 lbs (97.73 kgs), BMI: 38.1, Temperature: 98.4 ?F ( 36.89 ?C), Pulse: 96 bpm, Respiratory Rate: 18 breaths/min, Blood Pressure: 124/86 mmHg, Capillary Blood Glucose: 293 mg/dl, Pulse Oximetry: 96 %. Vital Signs Notes: Glucose in clinic. Ears, Nose, Mouth, and Throat: No clinically significant hearing loss on informal examination. Cardiovascular: 1+ right lower extremity edema. Integumentary (Hair, Skin) No periwound erythema, warmth, or significant drainage. No periwound rashes appreciated or noted otherwise.. Refer to appropriate clinician wound documentation for this visit; right heel ulcer extends to subcut with base partially covered with pink granulation, remainder fibrin and slough. Maceration present in the periwound area. Wound #8 Right Heel is a chronic Aguilar Grade 2 Diabetic Ulcer and has received a status of Not Healed. Subsequent wound encounter measurements are 1.1cm length x 1.1cm width x 0.2cm depth, with an area of 1.21 sq cm and a volume of 0.242 cubic cm. No tunneling has been noted. No sinus tract has been noted. No undermining has been noted. There is a moderate amount of sero-sanguineous drainage noted which has no odor. The patient reports a wound pain of level 2/10. The wound margin is attached. Wound bed has No epithelialization, No eschar, Yes slough, Yes bright red, pink, firm granulation. The periwound skin texture is normal. The periwound skin color is normal. The periwound skin exhibited: Maceration. The periwound skin did not exhibit: Dry/Scaly, Moist. The temperature of the periwound skin is Warm. Periwound skin does not exhibit signs or symptoms of infection. Local Pulse is Palpable. Wound #11 Right, Dorsal Second Toe is a chronic Aguilar Grade 1 Diabetic Ulcer and has received an outcome of Healed - no new wound(s). Subsequent wound encounter measurements are 0cm length x 0cm width x 0cm depth, with an area of 0 sq cm and a volume of 0 cubic cm. No tunneling has been noted. No sinus tract has been noted. No undermining has been noted. There was no drainage noted. The patient reports a wound pain of level 0/10. The wound margin is attached. Wound bed has Yes epithelialization , No eschar, Yes slough, No granulation. The periwound skin texture is normal. The periwound skin moisture is normal. The periwound skin color is normal. The temperature of the periwound skin is Cool. Periwound skin does not exhibit signs or symptoms of infection. Local Pulse is Palpable. General Notes: Covered in dried drainage Neurological: Cranial nerves grossly intact with symmetric function normal by informal observation.. ASSESSMENT Active Problems ICD-10 (Encounter Diagnosis) E11.621 - Type 2 diabetes mellitus with foot ulcer (Encounter Diagnosis) L97.412 - Non-pressure chronic ulcer of right heel and midfoot with fat layer exposed (Encounter Diagnosis) B95.62 - Methicillin resistant Staphylococcus aureus infection as the cause of diseases classified elsewhere PROCEDURES Wound #8 Wound #8 (Diabetic Ulcer) is located on the right heel. A skin/subcutaneous tissue level surgical debridement with a total area debrided of 1.21 sq cm was performed by Raphael Bush MD. Subcutaneous was removed along with devitalized tissue: slough and maceration. The following instrument(s) were used: curette. Pain control was achieved using 4% Lido. A time out was conducted prior to the start of the procedure. A minimal amount of bleeding was controlled with n/a. The procedure was tolerated well with a pain level of 0 throughout and a pain level of 0 following the procedure. Post Debridement Measurements: 1.1cm length x 1.1cm width x 0.3cm depth; with an area of 1.21 sq cm and a volume of 0.363 cubic cm; Wound #8 (Diabetic Ulcer) is located on the right heel. A Disposable Wound Vac Application < 50 Sq Cm procedure was performed for the lower right extremity by Raphael Bush MD. A time out was conducted prior to the start of the procedure. The procedure was tolerated well. General Notes: [id number] [id number]. Additional Information Muscle fascia or bone removed and sent to pathology?: No PLAN Wound Orders: Wound #8 Right Heel Anesthetic Topical Xylocaine to wound bed. Cleanser Cleanse Wound: - Normal saline Dressings Negative Pressure Wound Therapy - Wilfredo 4x[address] Additional Orders: Follow-Up Appointments Return Appointment: - - one week Other information: If you develop fever, chills, increased pain, drainage, redness or swelling please call our office. If after hours, respond to the ER. Should you experience any significant changes in your wound(s) or have any questions regarding your home care instructions please contact the wound center @ [phone]. If after hours, contact your primary care physician or go to the hospital emergency room. Scribing Attestation I attest, as the nurse, that I scribed these orders for the physician. I've reviewed the clinician's documentation and agree with the evaluation and plan as written. In addition, the patient's ulcer demonstrates evidence of non-viable devitalized tissue which will continue to benefit from sharp debridement to help promote granulation and expedite healing. Negative pressure wound therapy will be utilized to facilitate granulation and removal of exudate and infectious material with the goal of expediting wound healing. Also, I'll defer additional oral antibiotics regarding the MRSA culture and monitor for recurrence of clinically significant infection. Electronic Signature(s) Signed By: Date: Raphael Bush MD 11/08/2017 09:40:37 Entered By: Raphael Bush on 11/08/2017 09:30:35
== END ==
PROVIDERS: Family Provider Family Medicine; PCP Family Medicine; Visit Provider Internal Medicine
DX: E11.622 Type 2 diabetes mellitus with other skin ulcer (principal); E11.40 Type 2 diabetes mellitus with diabetic neuropathy, unspecified; L97.412 Non-pressure chronic ulcer of right heel and midfoot with fat layer exposed; A49.02 Methicillin resistant Staphylococcus aureus infection, unspecified site
CPT/HCPCS: 11042; 97607

== ENCOUNTER → 2017-11-12 10:22 | Outpatient (CLI) | payer OTHER, MEDICAID, SELFPAY | PROVIDERS: Family Provider Family Medicine; PCP Family Medicine; Visit Provider Internal Medicine | DX: E11.622 Type 2 diabetes mellitus with other skin ulcer (principal); E11.40 Type 2 diabetes mellitus with diabetic neuropathy, unspecified; L97.412 Non-pressure chronic ulcer of right heel and midfoot with fat layer exposed; A49.02 Methicillin resistant Staphylococcus aureus infection, unspecified site | CPT/HCPCS: 97607 ==

== ENCOUNTER → 2017-11-19 09:30 | Outpatient (CLI) | payer OTHER, MEDICAID, SELFPAY ==
--- NOTE | 2017-11-19 | OV.WND_ITS ---
Progress Note Details Patient Name: Ariana Causey Patient Number: [id number] PatientPatientDate: 11/19/2017 Clinician: Clara Espino Physician / Meat Soaker: Raphael Bush SUBJECTIVE Chief Complaint This information was obtained from the patient Non-healing wound to right great toe and second toe. Allergies Sulfa (Sulfonamide Antibiotics), Vicodin HPI This information was obtained from the patient 11/19/17. Seen by Dr. Bush. The patient does not report pain or increased drainage associated with the right heel diabetic ulcer since her last visit however there 's new drainage overlying the recently healed right 2nd toe diabetic ulcer. Her blood sugars are again over 300 today and she states she ate a lot of grapes yesterday. 11/05/17. Seen by Dr. Bush. The patient's completed her course of linezolid that was given to treat the recurrent MRSA positive culture taken from the right heel diabetic ulcer. She's tolerating NPWT without difficulty and although she's now received her glucometer and supplies she's still not checking her blood sugars as recommended. 10/29/17. Seen by Dr. Bush. The patient's started her course of linezolid that' s treating the recurrent MRSA culture from the chronic right heel diabetic ulcer. She reports less pain from the site and no increase in drainage or pain associated with the left 3rd and 4th toe nor right 2nd toe diabetic ulcer as well. 10/22/17. Seen by Dr. Bush. The patient continues to report some pain associated with the chronic right heel diabetic ulcer but none with the remaining right 2nd toe nor left 3rd and 4th toe diabetic ulcers. Her heel ulcer wound culture grew MRSA again and she's not currently on antibiotics. She's still not checking her blood sugars although is taking insulin and she has an appointment with her PCP to discuss getting another glucometer. 10/15/17. Seen by Dr. Bush. The patient continues to report some pain associated with the chronic right heel diabetic ulcer but none with the remaining right 2nd toe nor left 3rd and 4th toe diabetic ulcers. Of note, she restarted taking her insulin as prescribed with the assistance of her caregiver however they're not checking blood sugars when taking the insulin. 10/08/17. Seen by Dr. Bush. The patient continues on doxycycline for the recent MRSA and Strep positive wound culture although she should have completed this by now. She feels she may have missed a few doses and of note is also not checking her blood glucose at home. She does not report significant pain or drainage associated with the bilateral diabetic foot ulcers however and is tolerating NPWT treating the right heel ulcer without difficulty. He blood sugar is again elevated at 261 and she's to have an A1c repeated next week. 10/01/17. Seen by Dr. Bush. The patient's now on doxycycline again for MRSA and Streptococcus species cultured from the right 2nd toe diabetic ulcer although there's intermediate resistance noted on the culture sensitivies. She does not report increased pain or drainage from this site nor the right heel or left 2nd and 3rd toe diabetic foot ulcers and she's tolerating the antibiotic without reporting adverse side effects. 09/24/17. Seen by Randell Turner PA-C. The patient reports high blood sugars and increased drainage from her left foot diabetic ulcers. 09/17/17. Seen by Dr. Bush. The patient reports pain associated with the chronic left 3rd and 4th toe and right 2nd toe diabetic ulcers since her last visit and staff report significant maceration in these periulcer areas. Otherwise she'll complete her course of antibiotics that's treating the recent MRSA positive wound culture and is tolerating the wound vac overlying the right lateral heel diabetic ulcer. Her blood sugar is again over 300 today and she states she forgot to take her Lantus this morning. 09/10/17. Seen by Dr. Bush. The patient's now on doxycycline for the MRSA positive culture taken from the chronic right lateral heel diabetic ulcer last week. She does not report adverse side effects or other acute issues regarding the remaining left and right foot diabetic ulcers. Her blood sugars are again over 300 today which she attributes to eating strawberries this morning. 09/03/17. Seen by Dr. Bush. The patient reports some increased drainage associated with the bilateral diabetic foot ulcers since her last visit and she's still not checking blood sugars at home as recommended. Otherwise she's tolerating negative pressure wound therapy without difficulty and does not report any acute issues at this time. 08/27/17. Seen by Dr. Bush. The patient does not report significant pain nor drainage associated with the bilateral diabetic foot ulcers since her last visit and she tolerated negative pressure wound therapy of the right lateral heel diabetic ulcer without difficulty. 08/20/17. Seen by Dr. Bush. The patient does not report significant pain nor drainage associated with the bilateral diabetic foot ulcers since her last visit and she tolerated negative pressure wound therapy of the right lateral heel diabetic ulcer without difficulty. 08/13/17. Seen by Dr. Bush. The patient does not report significant pain nor drainage associated with the bilateral diabetic foot ulcers since her last visit and she tolerated negative pressure wound therapy of the right lateral heel diabetic ulcer without difficulty. Also, her blood sugars are improving although are still elevated at 204 today. 08/06/17. Seen by Dr. Bush. The patient does not report significant pain nor drainage associated with the bilateral diabetic foot ulcers since her last visit and she tolerated negative pressure wound therapy of the right lateral heel diabetic ulcer without difficulty. 07/30/17. Seen by Dr. Bush. The patient does not report significant pain nor drainage associated with the bilateral diabetic foot ulcers since her last visit and she tolerated negative pressure wound therapy of the right lateral heel diabetic ulcer without difficulty. 07/23/17. Seen by Dr. Bush. The patient does not report significant pain nor drainage associated with the bilateral diabetic foot ulcers since her last visit. Her MRI did not indicate osteo-myelitis of the right heel and she's been off of Zyvox that was treated in the recent MRSA infection for over a week. She has continued to apply topical gentamicin to the ulcers as recommended. Of note, her blood sugar is elevated again today at 227 which has been an ongoing issue since she's been attending our clinic. 07/16/17. Seen by Dr. Bush. The patient continues to report improvement in terms of pain and drainage associated with the chronic right and left foot diabetic ulcer since her last visit. She's completed a course of Zyvox that's been treating the recent MRSA positive wound culture of the right heel and does not report adverse side effects. She also has an MRI of the heel next week to evaluate for possible osteomyelitis. 07/13/17. Seen by Dr. Bush. The patient reports significant improvement in terms of her right heel pain since starting on Zyvox last week. She also feels in general the bilateral diabetic foot ulcers are draining less and improving. Her A1c was very high and her primary care provider increased her Lantus to 40 units twice daily. 07/09/17. Seen by Dr. Bush. The patient has not yet picked up her prescription for Zyvox which was approved yesterday to treat the right lateral heel MRSA positive wound culture. She does report increased pain or drainage associated with either the left or right foot diabetic ulcers and her blood sugars are just over 200 today which is an improvement. She is to follow-up with primary care provider today also noting her chronically elevated blood sugars and need for improving terms of her diabetes management in general. 07/06/17. Seen by Dr. Bush. The patient continues to report significant pain associated with bilateral right heel diabetic foot ulcer over the past week. Her wound culture grew a very resistant MRSA and she is not currently on systemic antibiotics. She does not report seeing any pain or drainage associated with the other right and left foot diabetic ulcers. As a side note, the patient states that her 10-year-old grandson is staying with her and has been helping with her insulin. 07/02/17. Seen by Dr. Bush. The patient's blood sugar 316 today and she still not checking them daily at home is recommended. She does not report significant pain or increased drainage associated with bilateral right and left foot diabetic ulcers since her last visit. 06/25/17. She will Dr. Bush. The patient continues on doxycycline for the MRSA positive culture taken from her right foot diabetic ulcer. She does not report increased drainage or pain associated with the bilateral diabetic foot ulcers and her x-ray of the right heel did not confirm osteomyelitis. Her blood sugars continue to be consistently around 250 and she is now checking them daily with the help of her caregiver. 06/18/16. Seen by JED Ruffin. The patient denies pain or increased drainage associated with bilateral diabetic foot ulcers. She was started on Doxycycline last week per MRSA culture. She takes her last dose today. Her blood sugar in clinic today was 255. She continues to be inconsistent with checking her blood sugars at home and continues to smoke despite being counseled on the associated negative effects on wound healing. 06/11/17. Seen by Dr. Bush. The patient does not report pain or increased drainage associated with bilateral diabetic foot ulcers. She has not picked up her antibiotic prescription to treat the recently cultured MRSA. Her blood sugar is 267 today following having a cookie for breakfast and she is also not checking her blood sugars routinely despite taking insulin. Of note, she has shown a pattern of noncompliance since establishing care at our clinic. She does not report fevers or feeling unwell in general. 06/04/17. Seen by Randell Turner PA-C. The patient reports no increase in drainage from her bilateral diabetic foot ulcers. Her CT Angiogram did not show hemodynamically significant stenosis or occlusions of her lower extremity arteries. She has not attempted to make an appointment to see her PCP regarding her persistent hyperglycemia. She continues smoking cigarettes and does not indicate a willingness to cut down or quit to help her ulcers heal. In addition, when a dog hair was pulled from her ulcer today she reported that I may have let my dog lay on my feet when I didn't have a bandage on. 05/28/17. Seen by Randell Turner PA-C. The patient reports stable drainage and pain from her diabetic foot ulcers. She initially refuses to have her blood sugar taken today citing having just eaten a box of candy. She has not attempted to make an appointment with her PCP to discuss her blood sugars. She continues on doxycycline for her ulcer infection and her CT angiogram to evaluate her PAD is scheduled for next week. In addition she continues smoking cigarettes. 05/18/17. Seen by Randell Turner PA-C. The patient reports decreased ulcer pain and stable drainage. Her blood sugars are reportedly over 200 and she has not made an appointment with her PCP to address this as instructed. 05/11/17. Seen by Randell Turner PA-C. The patient reports a decrease in ulcer pain from her bilateral lower extremity ulcers since taking her antibiotics. Her blood sugars continue to be over 150. 05/07/17. Seen by Randell Turner PA-C. The patient reports that her blood sugars have never ever been below 150 and that she has not yet begun taking the Doxycycline I have prescribed. She is willing to undergo debridement but is concerned about pain. Of note regarding pain, when I attempted to palpate her left pedal pulse, she stated that she experienced 7.5/10 pain from the light touch of palpating the dorsum of her foot. 04/29/17. Seen by Randell Turner PA-C. The patient reports increased pain from her ulcers, indicating that she will not be able to tolerate a debridement today of her ulcers. She is willing, however, to undergo a limited debridement to remove some devitalized tissue and obtain a tissue sample for bacterial culture. In addition, the patient notes new ulcers of her left leg and they have been rapidly increasing in size by her report. 04/23/17. Seen by Dr. Bush. The patient does not report significant pain or increased drainage associated with bilateral dorsal toe diabetic ulcers since her last visit. 04/16/17. Seen by Dr. Bush. The patient reports some new ulcers over the left toes and does not know how long they've been there but states they're somewhat painful. She does not report any increase in drainage or pain associated with chronic right first and second toe diabetic ulcers over the past week. She states she is not checking her blood sugars routinely because she is not able to use her glucometer and she has been decreasing her smoking substantially. She does not report fevers or feeling unwell or any other acute issues today. 04/09/17. Seen by Dr. Bush. The patient does not report significant pain nor increased drainage associated with the chronic right first and second toe diabetic ulcers since her last visit. Her arterial Doppler also did not confirm clinically significant PAD.She' s completed her course of oral antibiotics that was treated in the Enterobacter positive wound culture however continues to apply topical gentamicin dressing changes. Her blood sugars again are elevated today at 256. 04/01/17. Seen by Dr. Bush. The patient can to use reports some discomfort associated with the chronic right first and second toe diabetic ulcers. She was to have an arterial Doppler today to evaluate for PAD however was unable to make the appointment due to transportation issues. She continues on ciprofloxacin to treat the Enterobacter positive wound culture taken at the initial visit. Of note, her diabetes has been very poorly controlled and she continues to smoke cigarettes. Her blood sugar today is 354. 03/24/17. Seen by Dr. Bush. The patient continues to report pain associated with the chronic right first and second toe diabetic ulcers. She continues on ciprofloxacin for the recently cultured Enterobacter positive culture. She is a report of her side effects nor fevers or feeling unwell. Also, her blood sugars continue to be poorly controlled and are well over 300 today. 03/17/17. Seen by Dr. Bush. The patient is new to our clinic and presents with chronic right first and second toe diabetic ulcers. She states that they occurred spontaneously about 1 month ago and have been slowly progressing. She reports some modest pain and drainage however does not report fevers. Her diabetes is very poorly controlled with an A1c reportedly of 14 and she smokes half pack of cigarettes daily. Her primary care provider started her on Augmentin yesterday. Past Medical History This information was obtained from the patient Patient has a medical history of: Diabetes, type 2 Diabetic Neuropathy Urinary Incontinence Fibromylagia CVA Osteoarthritis Gastro Esoph. Reflux Disease (GERD) Sleep Apnea Hyperlipidemia Depression Complaints and Symptoms This information was obtained from the patient Patient complains of: General Notes: I have reviewed and concur with the Review of Systems and Past Family Social History documents completed by the clinician, I have reviewed and concur with the Wound Assessment document completed by the clinician Cardiovascular (Central): Dyspnea on Exertion Integumentary (Hair/Skin/Nails): Open Sore Musculoskeletal: Joint Swelling Prior Wound History: Drainage, Erythema, Pain Patient denies complaints or symptoms related to: Cardiovascular (Central): Irregular heart beat Cardiovascular (Central/Peripheral): Intermittent Claudication Constitutional Symptoms (General Health): Chills, Fever Ear/Nose/Mouth/Throat: Hearing Loss / Aid Gastrointestinal (GI): Nausea / Vomiting Hematologic/Lymphatic: Bleeding / Clotting Disorders, Bleeding Tendency Neurological: Loss of Protective Sensation Prior Wound History: Bleeding Psychiatric: Memory Loss Respiratory: Oxygen Use, Shortness of Breath OBJECTIVE Constitutional BP elevated; Afebrile; Alert and in no distress. Well developed. Alert. Clean appearing.. Height/Length: 63 in (160.02 cm), Weight: 215 lbs (97.73 kgs), BMI: 38.1, Temperature: 97.9 ?F (36.61 ?C), Pulse: 99 bpm, Respiratory Rate: 18 breaths/min, Blood Pressure: 139/89 mmHg, Capillary Blood Glucose: 318 mg/dl, Pulse Oximetry: 98 %. Vital Signs Notes: Glucose per patient before breakfast. Ears, Nose, Mouth, and Throat: No clinically significant hearing loss on informal examination. Respiratory: No respiratory distress. Even respirations and without use of accessory muscles.. Cardiovascular: 1+ bilateral lower leg edema. Gastrointestinal (GI): Obese. Nondistended.. Integumentary (Hair, Skin) Mild periwound erythema without warmth. Refer to appropriate clinician wound documentation for this visit; right lateral heel ulcer extends to subcut with base partially covered with pink granulation, remainder fibrin and slough; right 2nd toe ulcer extends to dermis. Maceration and callus present in the periwound areas. Wound #2 Right Second Toe is a chronic Aguilar Grade 2 Diabetic Ulcer and has received an outcome of Converted/Bridged. Subsequent wound encounter measurements are 0.1cm length x 0.1cm width x 0.1cm depth, with an area of 0.01 sq cm and a volume of 0.001 cubic cm. Hypergranulation was noted. No tunneling has been noted. No sinus tract has been noted. No undermining has been noted. There was no drainage noted. The patient reports a wound pain of level 7/10. The wound margin is attached. Wound bed has No epithelialization , No eschar, Yes slough, No granulation. The periwound skin texture is normal. The periwound skin exhibited: Moist, Maceration, Erythema. The temperature of the periwound skin is WNL. Periwound skin does not exhibit signs or symptoms of infection. Local Pulse is Palpable. Wound #8 Right Heel is a chronic Aguilar Grade 2 Diabetic Ulcer and has received a status of Not Healed. Subsequent wound encounter measurements are 1.1cm length x 1cm width x 0.3cm depth, with an area of 1.1 sq cm and a volume of 0.33 cubic cm. No tunneling has been noted. No sinus tract has been noted. No undermining has been noted. There is a moderate amount of sero-sanguineous drainage noted which has no odor. The patient reports a wound pain of level 2/10. The wound margin is attached. Wound bed has No epithelialization, No eschar, Yes slough, Yes bright red, pink, firm granulation. The periwound skin texture is normal. The periwound skin color is normal. The periwound skin exhibited: Maceration. The periwound skin did not exhibit: Dry/Scaly, Moist. The temperature of the periwound skin is Warm. Periwound skin does not exhibit signs or symptoms of infection. Local Pulse is Palpable. Wound #11 Right, Dorsal Second Toe is a chronic Aguilar Grade 1 Diabetic Ulcer and has received a status of Not Healed. Subsequent wound encounter measurements are 0.1cm length x 0.1cm width x 0.1cm depth, with an area of 0.01 sq cm and a volume of 0.001 cubic cm. No tunneling has been noted. No sinus tract has been noted. No undermining has been noted. There was no drainage noted. The patient reports a wound pain of level 0/ 10. The wound margin is attached. Wound bed has Yes epithelialization, No eschar, Yes slough, No granulation. The periwound skin texture is normal. The periwound skin moisture is normal. The periwound skin color is normal. The temperature of the periwound skin is Cool. Periwound skin does not exhibit signs or symptoms of infection. Local Pulse is Palpable. Neurological: Cranial nerves grossly intact with symmetric function normal by informal observation.. ASSESSMENT Active Problems ICD-10 (Encounter Diagnosis) E11.621 - Type 2 diabetes mellitus with foot ulcer (Encounter Diagnosis) L97.412 - Non-pressure chronic ulcer of right heel and midfoot with fat layer exposed (Encounter Diagnosis) B95.62 - Methicillin resistant Staphylococcus aureus infection as the cause of diseases classified elsewhere (Encounter Diagnosis) L97.511 - Non-pressure chronic ulcer of other part of right foot limited to breakdown of skin PROCEDURES Wound #8 Wound #8 (Diabetic Ulcer) is located on the right heel. A skin/subcutaneous tissue level surgical debridement with a total area debrided of 1.1 sq cm was performed by Raphael Bush MD. Subcutaneous was removed along with devitalized tissue: slough. The following instrument(s) were used: curette. Pain control was achieved using 4% Lido. A time out was conducted prior to the start of the procedure. A minimal amount of bleeding was controlled with n/a. The procedure was tolerated well with a pain level of 0 throughout and a pain level of 0 following the procedure. Post Debridement Measurements: 1.1cm length x 1cm width x 0.4cm depth; with an area of 1.1 sq cm and a volume of 0.44 cubic cm; Wound #11 Wound #11 (Diabetic Ulcer) is located on the right, dorsal second toe. A selective debridement with a total area debrided of 0.6 sq cm was performed by Raphael Bush MD. to remove devitalized tissue: exudate and slough. The following instrument(s) were used: curette. Pain control was achieved using 4% Lido. A time out was conducted prior to the start of the procedure. A minimal amount of bleeding was controlled with n/a. The procedure was tolerated well with a pain level of 0 throughout and a pain level of 0 following the procedure. Post Debridement Measurements: 1cm length x 0.6cm width x 0.2cm depth; with an area of 0.6 sq cm and a volume of 0.12 cubic cm; Additional Information Muscle fascia or bone removed and sent to pathology?: No PLAN Wound Orders: Wound #8 Right Heel Anesthetic Topical Xylocaine to wound bed. Cleanser Cleanse Wound: - Normal saline Dressings Primary dressing: - Foam Cover and secure with: - Hypafix Tape Change Dressing: - Daily Wound #11 Right, Dorsal Second Toe Anesthetic Topical Xylocaine to wound bed. Cleanser Cleanse Wound: - Normal saline Dressings Primary dressing: - Foam Cover and secure with: - Hypafix Tape Change Dressing: - Daily Additional Orders: Follow-Up Appointments Return Appointment: - - one week Other information: If you develop fever, chills, increased pain, drainage, redness or swelling please call our office. If after hours, respond to the ER. Should you experience any significant changes in your wound(s) or have any questions regarding your home care instructions please contact the wound center @ [phone]. If after hours, contact your primary care physician or go to the hospital emergency room. Scribing Attestation I attest, as the nurse, that I scribed these orders for the physician. Laboratory: Culture Wound, Culture Wound I've reviewed the clinician's documentation and agree with the evaluation and plan as written. In addition the patient's ulcers demonstrate evidence of non-viable devitalized tissue and they will continue to benefit from sharp debridement to help promote granulation and expedite healing. Electronic Signature(s) Signed By: Date: Raphael Bush MD 11/19/2017 13:36:07 Entered By: Raphael Bush on 11/19/2017 10:31:14
== END ==
PROVIDERS: Family Provider Family Medicine; PCP Family Medicine; Visit Provider Internal Medicine
DX: E11.621 Type 2 diabetes mellitus with foot ulcer (principal); E11.65 Type 2 diabetes mellitus with hyperglycemia; L97.511 Non-pressure chronic ulcer of other part of right foot limited to breakdown of skin; E11.622 Type 2 diabetes mellitus with other skin ulcer; L97.412 Non-pressure chronic ulcer of right heel and midfoot with fat layer exposed
CPT/HCPCS: 11042; 87070; 87075; 87077; 87147; 87186; 87205; 97597

== ENCOUNTER → 2017-11-26 08:55 | Outpatient (CLI) | payer OTHER, MEDICAID, SELFPAY | PROVIDERS: Family Provider Family Medicine; PCP Family Medicine; Visit Provider Internal Medicine | DX: E11.621 Type 2 diabetes mellitus with foot ulcer (principal); L97.412 Non-pressure chronic ulcer of right heel and midfoot with fat layer exposed; L97.512 Non-pressure chronic ulcer of other part of right foot with fat layer exposed; B95.62 Methicillin resistant Staphylococcus aureus infection as the cause of diseases classified elsewhere | CPT/HCPCS: 11042; 97607 ==

== ENCOUNTER → 2017-12-03 09:00 | Outpatient (CLI) | payer OTHER, MEDICAID, SELFPAY ==
--- NOTE | 2017-12-03 | OV.WND_ITS ---
Progress Note Details Patient Name: Ariana Causey Patient Number: [id number] PatientPatientDate: 12/03/2017 Clinician: Jacqueline Patel Clinician Cosigner: Romana Heath Physician / Quality Officer: Raphael Bush SUBJECTIVE Chief Complaint This information was obtained from the patient Non-healing wound to right heel and second toe. Allergies Sulfa (Sulfonamide Antibiotics), Vicodin HPI This information was obtained from the patient 12/03/17. Seen by Dr. Bush. The patient does not report pain or increased drainage associated with the right heel or right 1st and 2nd toe diabetic ulcers since her last visit and she'll complete her course of linezolid today that's been treating the MRSA positive culture. 11/26/17. Seen by Dr. Bush. The patient does not report pain or increased drainage associated with the right heel or right 2nd toe diabetic ulcers since her last visit and she's now on linezolid for the MRSA positive culture taken at her last visit. She does not report fevers, feeling unwell, or adverse side effects of the antibiotics and her NPWT was held at her last visit. 11/19/17. Seen by Dr. Bush. The patient does not report pain or increased drainage associated with the right heel diabetic ulcer since her last visit however there 's new drainage overlying the recently healed right 2nd toe diabetic ulcer. Her blood sugars are again over 300 today and she states she ate a lot of grapes yesterday. 11/05/17. Seen by Dr. Bush. The patient's completed her course of linezolid that was given to treat the recurrent MRSA positive culture taken from the right heel diabetic ulcer. She's tolerating NPWT without difficulty and although she's now received her glucometer and supplies she's still not checking her blood sugars as recommended. 10/29/17. Seen by Dr. Bush. The patient's started her course of linezolid that' s treating the recurrent MRSA culture from the chronic right heel diabetic ulcer. She reports less pain from the site and no increase in drainage or pain associated with the left 3rd and 4th toe nor right 2nd toe diabetic ulcer as well. 10/22/17. Seen by Dr. Bush. The patient continues to report some pain associated with the chronic right heel diabetic ulcer but none with the remaining right 2nd toe nor left 3rd and 4th toe diabetic ulcers. Her heel ulcer wound culture grew MRSA again and she's not currently on antibiotics. She's still not checking her blood sugars although is taking insulin and she has an appointment with her PCP to discuss getting another glucometer. 10/15/17. Seen by Dr. Bush. The patient continues to report some pain associated with the chronic right heel diabetic ulcer but none with the remaining right 2nd toe nor left 3rd and 4th toe diabetic ulcers. Of note, she restarted taking her insulin as prescribed with the assistance of her caregiver however they're not checking blood sugars when taking the insulin. 10/08/17. Seen by Dr. Bush. The patient continues on doxycycline for the recent MRSA and Strep positive wound culture although she should have completed this by now. She feels she may have missed a few doses and of note is also not checking her blood glucose at home. She does not report significant pain or drainage associated with the bilateral diabetic foot ulcers however and is tolerating NPWT treating the right heel ulcer without difficulty. He blood sugar is again elevated at 261 and she's to have an A1c repeated next week. 10/01/17. Seen by Dr. Bush. The patient's now on doxycycline again for MRSA and Streptococcus species cultured from the right 2nd toe diabetic ulcer although there's intermediate resistance noted on the culture sensitivies. She does not report increased pain or drainage from this site nor the right heel or left 2nd and 3rd toe diabetic foot ulcers and she's tolerating the antibiotic without reporting adverse side effects. 09/24/17. Seen by Randell Turner PA-C. The patient reports high blood sugars and increased drainage from her left foot diabetic ulcers. 09/17/17. Seen by Dr. Bush. The patient reports pain associated with the chronic left 3rd and 4th toe and right 2nd toe diabetic ulcers since her last visit and staff report significant maceration in these periulcer areas. Otherwise she'll complete her course of antibiotics that's treating the recent MRSA positive wound culture and is tolerating the wound vac overlying the right lateral heel diabetic ulcer. Her blood sugar is again over 300 today and she states she forgot to take her Lantus this morning. 09/10/17. Seen by Dr. Bush. The patient's now on doxycycline for the MRSA positive culture taken from the chronic right lateral heel diabetic ulcer last week. She does not report adverse side effects or other acute issues regarding the remaining left and right foot diabetic ulcers. Her blood sugars are again over 300 today which she attributes to eating strawberries this morning. 09/03/17. Seen by Dr. Bush. The patient reports some increased drainage associated with the bilateral diabetic foot ulcers since her last visit and she's still not checking blood sugars at home as recommended. Otherwise she's tolerating negative pressure wound therapy without difficulty and does not report any acute issues at this time. 08/27/17. Seen by Dr. Bush. The patient does not report significant pain nor drainage associated with the bilateral diabetic foot ulcers since her last visit and she tolerated negative pressure wound therapy of the right lateral heel diabetic ulcer without difficulty. 08/20/17. Seen by Dr. Bush. The patient does not report significant pain nor drainage associated with the bilateral diabetic foot ulcers since her last visit and she tolerated negative pressure wound therapy of the right lateral heel diabetic ulcer without difficulty. 08/13/17. Seen by Dr. Bush. The patient does not report significant pain nor drainage associated with the bilateral diabetic foot ulcers since her last visit and she tolerated negative pressure wound therapy of the right lateral heel diabetic ulcer without difficulty. Also, her blood sugars are improving although are still elevated at 204 today. 08/06/17. Seen by Dr. Bush. The patient does not report significant pain nor drainage associated with the bilateral diabetic foot ulcers since her last visit and she tolerated negative pressure wound therapy of the right lateral heel diabetic ulcer without difficulty. 07/30/17. Seen by Dr. Bush. The patient does not report significant pain nor drainage associated with the bilateral diabetic foot ulcers since her last visit and she tolerated negative pressure wound therapy of the right lateral heel diabetic ulcer without difficulty. 07/23/17. Seen by Dr. Bush. The patient does not report significant pain nor drainage associated with the bilateral diabetic foot ulcers since her last visit. Her MRI did not indicate osteo-myelitis of the right heel and she's been off of Zyvox that was treated in the recent MRSA infection for over a week. She has continued to apply topical gentamicin to the ulcers as recommended. Of note, her blood sugar is elevated again today at 227 which has been an ongoing issue since she's been attending our clinic. 07/16/17. Seen by Dr. Bush. The patient continues to report improvement in terms of pain and drainage associated with the chronic right and left foot diabetic ulcer since her last visit. She's completed a course of Zyvox that's been treating the recent MRSA positive wound culture of the right heel and does not report adverse side effects. She also has an MRI of the heel next week to evaluate for possible osteomyelitis. 07/13/17. Seen by Dr. Bush. The patient reports significant improvement in terms of her right heel pain since starting on Zyvox last week. She also feels in general the bilateral diabetic foot ulcers are draining less and improving. Her A1c was very high and her primary care provider increased her Lantus to 40 units twice daily. 07/09/17. Seen by Dr. Bush. The patient has not yet picked up her prescription for Zyvox which was approved yesterday to treat the right lateral heel MRSA positive wound culture. She does report increased pain or drainage associated with either the left or right foot diabetic ulcers and her blood sugars are just over 200 today which is an improvement. She is to follow-up with primary care provider today also noting her chronically elevated blood sugars and need for improving terms of her diabetes management in general. 07/06/17. Seen by Dr. Bush. The patient continues to report significant pain associated with bilateral right heel diabetic foot ulcer over the past week. Her wound culture grew a very resistant MRSA and she is not currently on systemic antibiotics. She does not report seeing any pain or drainage associated with the other right and left foot diabetic ulcers. As a side note, the patient states that her 10-year-old grandson is staying with her and has been helping with her insulin. 07/02/17. Seen by Dr. Bush. The patient's blood sugar 316 today and she still not checking them daily at home is recommended. She does not report significant pain or increased drainage associated with bilateral right and left foot diabetic ulcers since her last visit. 06/25/17. She will Dr. Bush. The patient continues on doxycycline for the MRSA positive culture taken from her right foot diabetic ulcer. She does not report increased drainage or pain associated with the bilateral diabetic foot ulcers and her x-ray of the right heel did not confirm osteomyelitis. Her blood sugars continue to be consistently around 250 and she is now checking them daily with the help of her caregiver. 06/18/16. Seen by JED Ruffin. The patient denies pain or increased drainage associated with bilateral diabetic foot ulcers. She was started on Doxycycline last week per MRSA culture. She takes her last dose today. Her blood sugar in clinic today was 255. She continues to be inconsistent with checking her blood sugars at home and continues to smoke despite being counseled on the associated negative effects on wound healing. 06/11/17. Seen by Dr. Bush. The patient does not report pain or increased drainage associated with bilateral diabetic foot ulcers. She has not picked up her antibiotic prescription to treat the recently cultured MRSA. Her blood sugar is 267 today following having a cookie for breakfast and she is also not checking her blood sugars routinely despite taking insulin. Of note, she has shown a pattern of noncompliance since establishing care at our clinic. She does not report fevers or feeling unwell in general. 06/04/17. Seen by Randell Turner PA-C. The patient reports no increase in drainage from her bilateral diabetic foot ulcers. Her CT Angiogram did not show hemodynamically significant stenosis or occlusions of her lower extremity arteries. She has not attempted to make an appointment to see her PCP regarding her persistent hyperglycemia. She continues smoking cigarettes and does not indicate a willingness to cut down or quit to help her ulcers heal. In addition, when a dog hair was pulled from her ulcer today she reported that I may have let my dog lay on my feet when I didn't have a bandage on. 05/28/17. Seen by Randell Turner PA-C. The patient reports stable drainage and pain from her diabetic foot ulcers. She initially refuses to have her blood sugar taken today citing having just eaten a box of candy. She has not attempted to make an appointment with her PCP to discuss her blood sugars. She continues on doxycycline for her ulcer infection and her CT angiogram to evaluate her PAD is scheduled for next week. In addition she continues smoking cigarettes. 05/18/17. Seen by Randell Turner PA-C. The patient reports decreased ulcer pain and stable drainage. Her blood sugars are reportedly over 200 and she has not made an appointment with her PCP to address this as instructed. 05/11/17. Seen by Randell Turner PA-C. The patient reports a decrease in ulcer pain from her bilateral lower extremity ulcers since taking her antibiotics. Her blood sugars continue to be over 150. 05/07/17. Seen by Randell Turner PA-C. The patient reports that her blood sugars have never ever been below 150 and that she has not yet begun taking the Doxycycline I have prescribed. She is willing to undergo debridement but is concerned about pain. Of note regarding pain, when I attempted to palpate her left pedal pulse, she stated that she experienced 7.5/10 pain from the light touch of palpating the dorsum of her foot. 04/29/17. Seen by Randell Turner PA-C. The patient reports increased pain from her ulcers, indicating that she will not be able to tolerate a debridement today of her ulcers. She is willing, however, to undergo a limited debridement to remove some devitalized tissue and obtain a tissue sample for bacterial culture. In addition, the patient notes new ulcers of her left leg and they have been rapidly increasing in size by her report. 04/23/17. Seen by Dr. Bush. The patient does not report significant pain or increased drainage associated with bilateral dorsal toe diabetic ulcers since her last visit. 04/16/17. Seen by Dr. Bush. The patient reports some new ulcers over the left toes and does not know how long they've been there but states they're somewhat painful. She does not report any increase in drainage or pain associated with chronic right first and second toe diabetic ulcers over the past week. She states she is not checking her blood sugars routinely because she is not able to use her glucometer and she has been decreasing her smoking substantially. She does not report fevers or feeling unwell or any other acute issues today. 04/09/17. Seen by Dr. Bush. The patient does not report significant pain nor increased drainage associated with the chronic right first and second toe diabetic ulcers since her last visit. Her arterial Doppler also did not confirm clinically significant PAD.She' s completed her course of oral antibiotics that was treated in the Enterobacter positive wound culture however continues to apply topical gentamicin dressing changes. Her blood sugars again are elevated today at 256. 04/01/17. Seen by Dr. Bush. The patient can to use reports some discomfort associated with the chronic right first and second toe diabetic ulcers. She was to have an arterial Doppler today to evaluate for PAD however was unable to make the appointment due to transportation issues. She continues on ciprofloxacin to treat the Enterobacter positive wound culture taken at the initial visit. Of note, her diabetes has been very poorly controlled and she continues to smoke cigarettes. Her blood sugar today is 354. 03/24/17. Seen by Dr. Bush. The patient continues to report pain associated with the chronic right first and second toe diabetic ulcers. She continues on ciprofloxacin for the recently cultured Enterobacter positive culture. She is a report of her side effects nor fevers or feeling unwell. Also, her blood sugars continue to be poorly controlled and are well over 300 today. 03/17/17. Seen by Dr. Bush. The patient is new to our clinic and presents with chronic right first and second toe diabetic ulcers. She states that they occurred spontaneously about 1 month ago and have been slowly progressing. She reports some modest pain and drainage however does not report fevers. Her diabetes is very poorly controlled with an A1c reportedly of 14 and she smokes half pack of cigarettes daily. Her primary care provider started her on Augmentin yesterday. Past Medical History This information was obtained from the patient Patient has a medical history of: Diabetes, type 2 Diabetic Neuropathy Urinary Incontinence Fibromylagia CVA Osteoarthritis Gastro Esoph. Reflux Disease (GERD) Sleep Apnea Hyperlipidemia Depression Complaints and Symptoms This information was obtained from the patient Patient complains of: General Notes: I have reviewed and concur with the Review of Systems and Past Family Social History documents completed by the clinician, I have reviewed and concur with the Wound Assessment document completed by the clinician Cardiovascular (Central): Dyspnea on Exertion Integumentary (Hair/Skin/Nails): Open Sore Musculoskeletal: Joint Swelling Prior Wound History: Drainage, Erythema, Pain Patient denies complaints or symptoms related to: Cardiovascular (Central): Irregular heart beat Cardiovascular (Central/Peripheral): Intermittent Claudication Constitutional Symptoms (General Health): Chills, Fever Ear/Nose/Mouth/Throat: Hearing Loss / Aid Gastrointestinal (GI): Nausea / Vomiting Hematologic/Lymphatic: Bleeding / Clotting Disorders, Bleeding Tendency Neurological: Loss of Protective Sensation Prior Wound History: Bleeding Psychiatric: Memory Loss Respiratory: Oxygen Use, Shortness of Breath OBJECTIVE Constitutional BP elevated; Afebrile; Alert and in no distress. Well developed. Alert. Clean appearing.. Height/Length: 63 in (160.02 cm), Weight: 215 lbs (97.73 kgs), BMI: 38.1, Temperature: 96.7 ?F (35.94 ?C), Pulse: 94 bpm, Respiratory Rate: 20 breaths/min, Blood Pressure: 145/92 mmHg, Capillary Blood Glucose: 213 mg/dl, Pulse Oximetry: 97 %. Vital Signs Notes: Glucose taken in clinic. Ears, Nose, Mouth, and Throat: No clinically significant hearing loss on informal examination. Respiratory: No respiratory distress. Even respirations and without use of accessory muscles.. Cardiovascular: 1+ dorsalis pedis and posterior tibial on the right. 1+ right lower extremity edema. Integumentary (Hair, Skin) Mild periwound erythema without warmth. Refer to appropriate clinician wound documentation for this visit; right heel and 1st and 2nd toe ulcers extend to subcut with bases partially covered with pink granulation, remainder fibrin and slough. Maceration and callus present in the periwound areas. Wound #8 Right Heel is a chronic Aguilar Grade 2 Diabetic Ulcer and has received a status of Not Healed. Subsequent wound encounter measurements are 0.9cm length x 0.9cm width x 0.1cm depth, with an area of 0.81 sq cm and a volume of 0.081 cubic cm. No tunneling has been noted. No sinus tract has been noted. No undermining has been noted. There is a moderate amount of serosanguineous drainage noted which has no odor. The patient reports a wound pain of level 2/10. The wound margin is attached. Wound bed has Yes epithelialization, No eschar, Yes slough, Yes bright red, pink, firm granulation. The periwound skin texture is normal. The periwound skin color is normal. The periwound skin exhibited: Moist, Maceration. The periwound skin did not exhibit: Dry/Scaly. The temperature of the periwound skin is Cool. Periwound skin does not exhibit signs or symptoms of infection. Local Pulse is Palpable. Wound #11 Right, Dorsal Second Toe is a chronic Aguilar Grade 1 Diabetic Ulcer and has received a status of Not Healed. Subsequent wound encounter measurements are 0.3cm length x 0.3cm width x 0.1cm depth, with an area of 0.09 sq cm and a volume of 0.009 cubic cm. No tunneling has been noted. No sinus tract has been noted. No undermining has been noted. There was no drainage noted. The patient reports a wound pain of level 0/ 10. The wound margin is attached. Wound bed has Yes epithelialization, No eschar, Yes slough, No granulation. The periwound skin moisture is normal. The periwound skin color is normal. The periwound skin exhibited: Edema. The temperature of the periwound skin is Cool. Periwound skin does not exhibit signs or symptoms of infection. Local Pulse is Palpable. General Notes: Covered in dried exudate/slough. Neurological: Cranial nerves grossly intact with symmetric function normal by informal observation.. ASSESSMENT Active Problems ICD-10 (Encounter Diagnosis) E11.621 - Type 2 diabetes mellitus with foot ulcer (Encounter Diagnosis) L97.412 - Non-pressure chronic ulcer of right heel and midfoot with fat layer exposed (Encounter Diagnosis) B95.62 - Methicillin resistant Staphylococcus aureus infection as the cause of diseases classified elsewhere (Encounter Diagnosis) L97.512 - Non-pressure chronic ulcer of other part of right foot with fat layer exposed (Encounter Diagnosis) I70.238 - Atherosclerosis of kiana arteries of right leg with ulceration of other part of lower right leg PROCEDURES Wound #8 Wound #8 (Diabetic Ulcer) is located on the right heel. A skin/subcutaneous tissue level surgical debridement with a total area debrided of 0.81 sq cm was performed by Raphael Bush MD. Subcutaneous was removed along with devitalized tissue: exudate and slough. The following instrument(s) were used: curette. Pain control was achieved using 4% Lido. A time out was conducted prior to the start of the procedure. A minimal amount of bleeding was controlled with pressure. The procedure was tolerated well with a pain level of 0 throughout and a pain level of 0 following the procedure. Post Debridement Measurements: 0.9cm length x 0.9cm width x 0.2cm depth; with an area of 0.81 sq cm and a volume of 0.162 cubic cm; Wound #11 Wound #11 (Diabetic Ulcer) is located on the right, dorsal second toe. A skin/ subcutaneous tissue level surgical debridement with a total area debrided of 0.09 sq cm was performed by Raphael Bush MD. Subcutaneous was removed along with devitalized tissue: exudate and slough. The following instrument(s) were used: curette. Pain control was achieved using 4% Lido. A time out was conducted prior to the start of the procedure. A minimal amount of bleeding was controlled with pressure. The procedure was tolerated well with a pain level of 0 throughout and a pain level of 0 following the procedure. Post Debridement Measurements: 0.3cm length x 0.3cm width x 0.2cm depth; with an area of 0.09 sq cm and a volume of 0.018 cubic cm; Additional Information Muscle fascia or bone removed and sent to pathology?: No Muscle fascia or bone removed and sent to pathology?: No PLAN Wound Orders: Wound #8 Right Heel Anesthetic Topical Xylocaine to wound bed. - In clinic only. Cleanser Cleanse Wound: - Normal saline and gauze in clinic, may use distilled water at home. May Shower. - Cover while in shower, with cast protector or plastic bag. Topical Treatments Antibiotic/Antimicrobial Ointment/Cream. - Gentamicin ointment. Dressings Cover and secure with: - Foam secured with conform and netting. Change Dressing: - Every other day. Wound #11 Right, Dorsal Second Toe Anesthetic Topical Xylocaine to wound bed. - In clinic only. Cleanser Cleanse Wound: - Normal saline and gauze in clinic, may use distilled water at home. May Shower. - Cover while in shower, with cast protector or plastic bag. Topical Treatments Antibiotic/Antimicrobial Ointment/Cream. - Gentamicin ointment. Dressings Primary dressing: - Foam. Cover and secure with: - Hypafix Tape. Change Dressing: - Every other day. Additional Orders: Follow-Up Appointments Return Appointment: - - One week. Other information: If you develop fever, chills, increased pain, drainage, redness or swelling please call our office. If after hours, respond to the ER. Should you experience any significant changes in your wound(s) or have any questions regarding your home care instructions please contact the wound center @ [phone]. If after hours, contact your primary care physician or go to the hospital emergency room. Scribing Attestation I attest, as the nurse, that I scribed these orders for the physician. General Notes: Supply order submitted through [email or web address]. I've reviewed the clinician's documentation and agree with the evaluation and plan as written. In addition the patient's ulcers demonstrate evidence of non-viable devitalized tissue and they will continue to benefit from sharp debridement to help promote granulation and expedite healing. Also, I've held NPWT and will defer additional antibiotics for now. I'm also going to re-evaluate for clinically significant PAD with an MRA noting the very refractory nature of the right foot ulcers, her history of smoking and poorly controlled diabetes and based on my exam today. Electronic Signature(s) Signed By: Date: Raphael Bush MD 12/07/2017 12:06:17 Entered By: Raphael Bush on 12/07/2017 07:28:02
== END ==
PROVIDERS: Family Provider Family Medicine; PCP Family Medicine; Visit Provider Internal Medicine
DX: E11.621 Type 2 diabetes mellitus with foot ulcer (principal); L97.512 Non-pressure chronic ulcer of other part of right foot with fat layer exposed; E11.622 Type 2 diabetes mellitus with other skin ulcer; L97.412 Non-pressure chronic ulcer of right heel and midfoot with fat layer exposed; I70.238 Atherosclerosis of native arteries of right leg with ulceration of other part of lower leg; B95.62 Methicillin resistant Staphylococcus aureus infection as the cause of diseases classified elsewhere
CPT/HCPCS: 11042

== ENCOUNTER → 2017-12-10 10:42 | Outpatient (CLI) | payer OTHER, MEDICAID, SELFPAY ==
--- NOTE | 2017-12-10 | OV.WND_ITS ---
Progress Note Details Patient Name: Ariana Causey Patient Number: [id number] PatientPatientDate: 12/10/2017 Clinician: Krystle Richardson Clinician Cosigner: Romana Heath Physician / Director Phone: Raphael Bush SUBJECTIVE Chief Complaint This information was obtained from the patient Non-healing wound to right heel and second toe. Allergies Sulfa (Sulfonamide Antibiotics), Vicodin HPI This information was obtained from the patient 12/10/17. Seen by Dr. Bush. The patient does not report pain or significant drainage associated with the chronic right first and second toe and right heal diabetic ulcers since her last visit. She's completed a course of linezollid that is treating the recent M RSA positive wound culture of the heel. She also has an MRA pending to reevaluate PAD of the leg. 12/03/17. Seen by Dr. Bush. The patient does not report pain or increased drainage associated with the right heel or right 1st and 2nd toe diabetic ulcers since her last visit and she'll complete her course of linezolid today that's been treating the MRSA positive culture. 11/26/17. Seen by Dr. Bush. The patient does not report pain or increased drainage associated with the right heel or right 2nd toe diabetic ulcers since her last visit and she's now on linezolid for the MRSA positive culture taken at her last visit. She does not report fevers, feeling unwell, or adverse side effects of the antibiotics and her NPWT was held at her last visit. 11/19/17. Seen by Dr. Bush. The patient does not report pain or increased drainage associated with the right heel diabetic ulcer since her last visit however there 's new drainage overlying the recently healed right 2nd toe diabetic ulcer. Her blood sugars are again over 300 today and she states she ate a lot of grapes yesterday. 11/05/17. Seen by Dr. Bush. The patient's completed her course of linezolid that was given to treat the recurrent MRSA positive culture taken from the right heel diabetic ulcer. She's tolerating NPWT without difficulty and although she's now received her glucometer and supplies she's still not checking her blood sugars as recommended. 10/29/17. Seen by Dr. Bush. The patient's started her course of linezolid that' s treating the recurrent MRSA culture from the chronic right heel diabetic ulcer. She reports less pain from the site and no increase in drainage or pain associated with the left 3rd and 4th toe nor right 2nd toe diabetic ulcer as well. 10/22/17. Seen by Dr. Bush. The patient continues to report some pain associated with the chronic right heel diabetic ulcer but none with the remaining right 2nd toe nor left 3rd and 4th toe diabetic ulcers. Her heel ulcer wound culture grew MRSA again and she's not currently on antibiotics. She's still not checking her blood sugars although is taking insulin and she has an appointment with her PCP to discuss getting another glucometer. 10/15/17. Seen by Dr. Bush. The patient continues to report some pain associated with the chronic right heel diabetic ulcer but none with the remaining right 2nd toe nor left 3rd and 4th toe diabetic ulcers. Of note, she restarted taking her insulin as prescribed with the assistance of her caregiver however they're not checking blood sugars when taking the insulin. 10/08/17. Seen by Dr. Bush. The patient continues on doxycycline for the recent MRSA and Strep positive wound culture although she should have completed this by now. She feels she may have missed a few doses and of note is also not checking her blood glucose at home. She does not report significant pain or drainage associated with the bilateral diabetic foot ulcers however and is tolerating NPWT treating the right heel ulcer without difficulty. He blood sugar is again elevated at 261 and she's to have an A1c repeated next week. 10/01/17. Seen by Dr. Bush. The patient's now on doxycycline again for MRSA and Streptococcus species cultured from the right 2nd toe diabetic ulcer although there's intermediate resistance noted on the culture sensitivies. She does not report increased pain or drainage from this site nor the right heel or left 2nd and 3rd toe diabetic foot ulcers and she's tolerating the antibiotic without reporting adverse side effects. 09/24/17. Seen by Randell Turner PA-C. The patient reports high blood sugars and increased drainage from her left foot diabetic ulcers. 09/17/17. Seen by Dr. Bush. The patient reports pain associated with the chronic left 3rd and 4th toe and right 2nd toe diabetic ulcers since her last visit and staff report significant maceration in these periulcer areas. Otherwise she'll complete her course of antibiotics that's treating the recent MRSA positive wound culture and is tolerating the wound vac overlying the right lateral heel diabetic ulcer. Her blood sugar is again over 300 today and she states she forgot to take her Lantus this morning. 09/10/17. Seen by Dr. Bush. The patient's now on doxycycline for the MRSA positive culture taken from the chronic right lateral heel diabetic ulcer last week. She does not report adverse side effects or other acute issues regarding the remaining left and right foot diabetic ulcers. Her blood sugars are again over 300 today which she attributes to eating strawberries this morning. 09/03/17. Seen by Dr. Bush. The patient reports some increased drainage associated with the bilateral diabetic foot ulcers since her last visit and she's still not checking blood sugars at home as recommended. Otherwise she's tolerating negative pressure wound therapy without difficulty and does not report any acute issues at this time. 08/27/17. Seen by Dr. Bush. The patient does not report significant pain nor drainage associated with the bilateral diabetic foot ulcers since her last visit and she tolerated negative pressure wound therapy of the right lateral heel diabetic ulcer without difficulty. 08/20/17. Seen by Dr. Bush. The patient does not report significant pain nor drainage associated with the bilateral diabetic foot ulcers since her last visit and she tolerated negative pressure wound therapy of the right lateral heel diabetic ulcer without difficulty. 08/13/17. Seen by Dr. Bush. The patient does not report significant pain nor drainage associated with the bilateral diabetic foot ulcers since her last visit and she tolerated negative pressure wound therapy of the right lateral heel diabetic ulcer without difficulty. Also, her blood sugars are improving although are still elevated at 204 today. 08/06/17. Seen by Dr. Bush. The patient does not report significant pain nor drainage associated with the bilateral diabetic foot ulcers since her last visit and she tolerated negative pressure wound therapy of the right lateral heel diabetic ulcer without difficulty. 07/30/17. Seen by Dr. Bush. The patient does not report significant pain nor drainage associated with the bilateral diabetic foot ulcers since her last visit and she tolerated negative pressure wound therapy of the right lateral heel diabetic ulcer without difficulty. 07/23/17. Seen by Dr. Bush. The patient does not report significant pain nor drainage associated with the bilateral diabetic foot ulcers since her last visit. Her MRI did not indicate osteo-myelitis of the right heel and she's been off of Zyvox that was treated in the recent MRSA infection for over a week. She has continued to apply topical gentamicin to the ulcers as recommended. Of note, her blood sugar is elevated again today at 227 which has been an ongoing issue since she's been attending our clinic. 07/16/17. Seen by Dr. Bush. The patient continues to report improvement in terms of pain and drainage associated with the chronic right and left foot diabetic ulcer since her last visit. She's completed a course of Zyvox that's been treating the recent MRSA positive wound culture of the right heel and does not report adverse side effects. She also has an MRI of the heel next week to evaluate for possible osteomyelitis. 07/13/17. Seen by Dr. Bush. The patient reports significant improvement in terms of her right heel pain since starting on Zyvox last week. She also feels in general the bilateral diabetic foot ulcers are draining less and improving. Her A1c was very high and her primary care provider increased her Lantus to 40 units twice daily. 07/09/17. Seen by Dr. Bush. The patient has not yet picked up her prescription for Zyvox which was approved yesterday to treat the right lateral heel MRSA positive wound culture. She does report increased pain or drainage associated with either the left or right foot diabetic ulcers and her blood sugars are just over 200 today which is an improvement. She is to follow-up with primary care provider today also noting her chronically elevated blood sugars and need for improving terms of her diabetes management in general. 07/06/17. Seen by Dr. Bush. The patient continues to report significant pain associated with bilateral right heel diabetic foot ulcer over the past week. Her wound culture grew a very resistant MRSA and she is not currently on systemic antibiotics. She does not report seeing any pain or drainage associated with the other right and left foot diabetic ulcers. As a side note, the patient states that her 10-year-old grandson is staying with her and has been helping with her insulin. 07/02/17. Seen by Dr. Bush. The patient's blood sugar 316 today and she still not checking them daily at home is recommended. She does not report significant pain or increased drainage associated with bilateral right and left foot diabetic ulcers since her last visit. 06/25/17. She will Dr. Bush. The patient continues on doxycycline for the MRSA positive culture taken from her right foot diabetic ulcer. She does not report increased drainage or pain associated with the bilateral diabetic foot ulcers and her x-ray of the right heel did not confirm osteomyelitis. Her blood sugars continue to be consistently around 250 and she is now checking them daily with the help of her caregiver. 06/18/16. Seen by JED Ruffin. The patient denies pain or increased drainage associated with bilateral diabetic foot ulcers. She was started on Doxycycline last week per MRSA culture. She takes her last dose today. Her blood sugar in clinic today was 255. She continues to be inconsistent with checking her blood sugars at home and continues to smoke despite being counseled on the associated negative effects on wound healing. 06/11/17. Seen by Dr. Bush. The patient does not report pain or increased drainage associated with bilateral diabetic foot ulcers. She has not picked up her antibiotic prescription to treat the recently cultured MRSA. Her blood sugar is 267 today following having a cookie for breakfast and she is also not checking her blood sugars routinely despite taking insulin. Of note, she has shown a pattern of noncompliance since establishing care at our clinic. She does not report fevers or feeling unwell in general. 06/04/17. Seen by Randell Turner PA-C. The patient reports no increase in drainage from her bilateral diabetic foot ulcers. Her CT Angiogram did not show hemodynamically significant stenosis or occlusions of her lower extremity arteries. She has not attempted to make an appointment to see her PCP regarding her persistent hyperglycemia. She continues smoking cigarettes and does not indicate a willingness to cut down or quit to help her ulcers heal. In addition, when a dog hair was pulled from her ulcer today she reported that I may have let my dog lay on my feet when I didn't have a bandage on. 05/28/17. Seen by Randell Turner PA-C. The patient reports stable drainage and pain from her diabetic foot ulcers. She initially refuses to have her blood sugar taken today citing having just eaten a box of candy. She has not attempted to make an appointment with her PCP to discuss her blood sugars. She continues on doxycycline for her ulcer infection and her CT angiogram to evaluate her PAD is scheduled for next week. In addition she continues smoking cigarettes. 05/18/17. Seen by Randell Turner PA-C. The patient reports decreased ulcer pain and stable drainage. Her blood sugars are reportedly over 200 and she has not made an appointment with her PCP to address this as instructed. 05/11/17. Seen by Randell Turner PA-C. The patient reports a decrease in ulcer pain from her bilateral lower extremity ulcers since taking her antibiotics. Her blood sugars continue to be over 150. 05/07/17. Seen by Randell Turner PA-C. The patient reports that her blood sugars have never ever been below 150 and that she has not yet begun taking the Doxycycline I have prescribed. She is willing to undergo debridement but is concerned about pain. Of note regarding pain, when I attempted to palpate her left pedal pulse, she stated that she experienced 7.5/10 pain from the light touch of palpating the dorsum of her foot. 04/29/17. Seen by Randell Turner PA-C. The patient reports increased pain from her ulcers, indicating that she will not be able to tolerate a debridement today of her ulcers. She is willing, however, to undergo a limited debridement to remove some devitalized tissue and obtain a tissue sample for bacterial culture. In addition, the patient notes new ulcers of her left leg and they have been rapidly increasing in size by her report. 04/23/17. Seen by Dr. Bush. The patient does not report significant pain or increased drainage associated with bilateral dorsal toe diabetic ulcers since her last visit. 04/16/17. Seen by Dr. Bush. The patient reports some new ulcers over the left toes and does not know how long they've been there but states they're somewhat painful. She does not report any increase in drainage or pain associated with chronic right first and second toe diabetic ulcers over the past week. She states she is not checking her blood sugars routinely because she is not able to use her glucometer and she has been decreasing her smoking substantially. She does not report fevers or feeling unwell or any other acute issues today. 04/09/17. Seen by Dr. Bush. The patient does not report significant pain nor increased drainage associated with the chronic right first and second toe diabetic ulcers since her last visit. Her arterial Doppler also did not confirm clinically significant PAD.She' s completed her course of oral antibiotics that was treated in the Enterobacter positive wound culture however continues to apply topical gentamicin dressing changes. Her blood sugars again are elevated today at 256. 04/01/17. Seen by Dr. Bush. The patient can to use reports some discomfort associated with the chronic right first and second toe diabetic ulcers. She was to have an arterial Doppler today to evaluate for PAD however was unable to make the appointment due to transportation issues. She continues on ciprofloxacin to treat the Enterobacter positive wound culture taken at the initial visit. Of note, her diabetes has been very poorly controlled and she continues to smoke cigarettes. Her blood sugar today is 354. 03/24/17. Seen by Dr. Bush. The patient continues to report pain associated with the chronic right first and second toe diabetic ulcers. She continues on ciprofloxacin for the recently cultured Enterobacter positive culture. She is a report of her side effects nor fevers or feeling unwell. Also, her blood sugars continue to be poorly controlled and are well over 300 today. 03/17/17. Seen by Dr. Bush. The patient is new to our clinic and presents with chronic right first and second toe diabetic ulcers. She states that they occurred spontaneously about 1 month ago and have been slowly progressing. She reports some modest pain and drainage however does not report fevers. Her diabetes is very poorly controlled with an A1c reportedly of 14 and she smokes half pack of cigarettes daily. Her primary care provider started her on Augmentin yesterday. Family History This information was obtained from the patient Unknown History - Mother, Maternal Grandparents, Father, Paternal Grandparents, Sibling, Child Social History This information was obtained from the patient Current every day smoker, Caffeine Use - 2 cups coffee a day, Children - 7, Lives in - Private home with caregiver, Occupation - disabled, Tobacco Use (deprecated) - 1/2 ppd, Unable to Care for Self - Caregiver providing care. Past Medical History This information was obtained from the patient Patient has a medical history of: Diabetes, type 2 Diabetic Neuropathy Urinary Incontinence Fibromylagia CVA Osteoarthritis Gastro Esoph. Reflux Disease (GERD) Sleep Apnea Hyperlipidemia Depression Surgical History This information was obtained from the patient Patient has a surgical history of: Tubal Ligation cholecystectomy kidney stone removal Complaints and Symptoms This information was obtained from the patient Patient complains of: General Notes: I have reviewed and concur with the Review of Systems and Past Family Social History documents completed by the clinician, I have reviewed and concur with the Wound Assessment document completed by the clinician Cardiovascular (Central): Dyspnea on Exertion Integumentary (Hair/Skin/Nails): Open Sore Musculoskeletal: Joint Swelling Prior Wound History: Drainage, Erythema, Pain Patient denies complaints or symptoms related to: Cardiovascular (Central): Irregular heart beat Cardiovascular (Central/Peripheral): Intermittent Claudication Constitutional Symptoms (General Health): Chills, Fever Ear/Nose/Mouth/Throat: Hearing Loss / Aid Gastrointestinal (GI): Nausea / Vomiting Hematologic/Lymphatic: Bleeding / Clotting Disorders, Bleeding Tendency Neurological: Loss of Protective Sensation Prior Wound History: Bleeding Psychiatric: Memory Loss Respiratory: Oxygen Use, Shortness of Breath Additional Information Does patient have a history of Cancer? Yes? Complete all questions.: No OBJECTIVE Constitutional BP elevated; Afebrile; Alert and in no distress. Well developed. Alert. Clean appearing.. Height/Length: 63 in (160.02 cm), Weight: 213.7 lbs (97.14 kgs), BMI: 37.9, Temperature: 98.8 ?F (37.11 ?C), Pulse: 97 bpm, Respiratory Rate: 18 breaths/min, Blood Pressure: 153/92 mmHg, Capillary Blood Glucose: 174 mg/dl, Pulse Oximetry: 97 %. Vital Signs Notes: Glucose per patient Ears, Nose, Mouth, and Throat: No clinically significant hearing loss on informal examination. Respiratory: No respiratory distress. Even respirations and without use of accessory muscles.. Cardiovascular: 1+ dorsalis pedis and posterior tibial on the right. 1+ right lower extremity edema. Gastrointestinal (GI): Obese. Nondistended.. Integumentary (Hair, Skin) Mild periwound erythema without warmth. Refer to appropriate clinician wound documentation for this visit; right foot ulcers extend to subcut with bases partially covered with pink granulation, remainder fibrin and slough. Maceration present in the periwound areas. Wound #8 Right Heel is a chronic Aguilar Grade 2 Diabetic Ulcer and has received a status of Not Healed. Subsequent wound encounter measurements are 1cm length x 1cm width x 0.2cm depth, with an area of 1 sq cm and a volume of 0.2 cubic cm. No tunneling has been noted. No sinus tract has been noted. No undermining has been noted. There is a moderate amount of serosanguineous drainage noted which has no odor. The patient reports a wound pain of level 2/10. The wound margin is attached. Wound bed has No epithelialization, No eschar, Yes slough, Yes bright red, spongy granulation. The periwound skin texture is normal. The periwound skin color is normal. The periwound skin exhibited: Moist, Maceration. The periwound skin did not exhibit: Dry/Scaly. The temperature of the periwound skin is Cool. Periwound skin does not exhibit signs or symptoms of infection. Local Pulse is Palpable. Wound #11 Right, Dorsal Second Toe is a chronic Aguilar Grade 1 Diabetic Ulcer and has received a status of Not Healed. Subsequent wound encounter measurements are 0.1cm length x 0.1cm width x 0.1cm depth, with an area of 0.01 sq cm and a volume of 0.001 cubic cm. No tunneling has been noted. No sinus tract has been noted. No undermining has been noted. There was no drainage noted. The patient reports a wound pain of level 0/ 10. The wound margin is attached. Wound bed has No epithelialization, No eschar, No slough, Yes pink, firm granulation. The periwound skin moisture is normal. The periwound skin color is normal. The periwound skin exhibited: Edema. The temperature of the periwound skin is Cool. Periwound skin does not exhibit signs or symptoms of infection. Local Pulse is Palpable. ASSESSMENT Active Problems ICD-10 (Encounter Diagnosis) E11.621 - Type 2 diabetes mellitus with foot ulcer (Encounter Diagnosis) L97.412 - Non-pressure chronic ulcer of right heel and midfoot with fat layer exposed (Encounter Diagnosis) B95.62 - Methicillin resistant Staphylococcus aureus infection as the cause of diseases classified elsewhere (Encounter Diagnosis) L97.512 - Non-pressure chronic ulcer of other part of right foot with fat layer exposed (Encounter Diagnosis) I70.238 - Atherosclerosis of [place] arteries of right leg with ulceration of other part of lower right leg PROCEDURES Wound #8 Wound #8 (Diabetic Ulcer) is located on the right heel. A skin/subcutaneous tissue level surgical debridement with a total area debrided of 1 sq cm was performed by Raphael Bush MD. Subcutaneous was removed along with devitalized tissue: exudate and slough. The following instrument(s) were used: curette. Pain control was achieved using 4% Lido. A time out was conducted prior to the start of the procedure. A minimal amount of bleeding was controlled with pressure. The procedure was tolerated well with a pain level of 0 throughout and a pain level of 0 following the procedure. Post Debridement Measurements: 1cm length x 1cm width x 0.2cm depth; with an area of 1 sq cm and a volume of 0.2 cubic cm; Wound #11 Wound #11 (Diabetic Ulcer) is located on the right, dorsal second toe. A skin/ subcutaneous tissue level surgical debridement with a total area debrided of 0.01 sq cm was performed by Raphael Bush MD. Subcutaneous was removed along with devitalized tissue: slough. The following instrument(s) were used: curette. Pain control was achieved using 4% Lido. A time out was conducted prior to the start of the procedure. A minimal amount of bleeding was controlled with pressure. The procedure was not tolerated well with a pain level of 0 throughout and a pain level of 0 following the procedure. Post Debridement Measurements: 0.1cm length x 0.1cm width x 0.1cm depth; with an area of 0.01 sq cm and a volume of 0.001 cubic cm; Additional Information Muscle fascia or bone removed and sent to pathology?: No Muscle fascia or bone removed and sent to pathology?: No PLAN Wound Orders: Wound #8 Right Heel Anesthetic Topical Xylocaine to wound bed. - In clinic only. Cleanser Cleanse Wound: - Normal saline and gauze in clinic, may use distilled water at home. May Shower. - Cover while in shower, with cast protector or plastic bag. Topical Treatments Antibiotic/Antimicrobial Ointment/Cream. - Gentamicin ointment. Dressings Cover and secure with: - Foam secured with conform and netting. Change Dressing: - Every other day. Wound #11 Right, Dorsal Second Toe Anesthetic Topical Xylocaine to wound bed. - In clinic only. Cleanser Cleanse Wound: - Normal saline and gauze in clinic, may use distilled water at home. May Shower. - Cover while in shower, with cast protector or plastic bag. Topical Treatments Antibiotic/Antimicrobial Ointment/Cream. - Gentamicin ointment. Dressings Primary dressing: - Foam. Cover and secure with: - Hypafix Tape. Change Dressing: - Every other day. Additional Orders: Follow-Up Appointments Return Appointment: - - One week. Other information: If you develop fever, chills, increased pain, drainage, redness or swelling please call our office. If after hours, respond to the ER. Should you experience any significant changes in your wound(s) or have any questions regarding your home care instructions please contact the wound center @ [phone]. If after hours, contact your primary care physician or go to the hospital emergency room. Scribing Attestation I attest, as the nurse, that I scribed these orders for the physician. General Notes: Gave EHOB seat cushion and discussed off-loading. I've reviewed the clinician's documentation and agree with the evaluation and plan as written. In addition the patient's ulcers demonstrate evidence of non-viable devitalized tissue and they will continue to benefit from sharp debridement to help promote granulation and expedite healing. I will defer additional oral antibiotics however continue treating with topical gentamicin. We also await results of the MRA. Electronic Signature(s) Signed By: Date: Raphael Bush MD 12/12/2017 16:38:10 Entered By: Raphael Bush on 12/12/2017 16:28:57
== END ==
PROVIDERS: Family Provider Family Medicine; PCP Family Medicine; Visit Provider Internal Medicine
DX: E11.621 Type 2 diabetes mellitus with foot ulcer (principal); E11.622 Type 2 diabetes mellitus with other skin ulcer; L97.412 Non-pressure chronic ulcer of right heel and midfoot with fat layer exposed; L97.512 Non-pressure chronic ulcer of other part of right foot with fat layer exposed; B95.62 Methicillin resistant Staphylococcus aureus infection as the cause of diseases classified elsewhere; I70.238 Atherosclerosis of native arteries of right leg with ulceration of other part of lower leg
CPT/HCPCS: 11042

== ENCOUNTER → 2017-12-17 10:52 | Outpatient (CLI) | payer OTHER, MEDICAID, SELFPAY | PROVIDERS: Family Provider Family Medicine; PCP Family Medicine; Visit Provider Internal Medicine | DX: E11.622 Type 2 diabetes mellitus with other skin ulcer (principal); L97.412 Non-pressure chronic ulcer of right heel and midfoot with fat layer exposed; E11.621 Type 2 diabetes mellitus with foot ulcer; L97.512 Non-pressure chronic ulcer of other part of right foot with fat layer exposed; L97.522 Non-pressure chronic ulcer of other part of left foot with fat layer exposed; B95.62 Methicillin resistant Staphylococcus aureus infection as the cause of diseases classified elsewhere; I70.238 Atherosclerosis of native arteries of right leg with ulceration of other part of lower leg | CPT/HCPCS: 11042; 87070; 87077; 87147; 87186; 87205 ==

== ENCOUNTER → 2017-12-24 09:54 | Outpatient (CLI) | payer OTHER, MEDICAID, SELFPAY | PROVIDERS: Family Provider Family Medicine; PCP Family Medicine; Visit Provider Internal Medicine | DX: E11.621 Type 2 diabetes mellitus with foot ulcer (principal); L97.512 Non-pressure chronic ulcer of other part of right foot with fat layer exposed; L97.522 Non-pressure chronic ulcer of other part of left foot with fat layer exposed; E11.622 Type 2 diabetes mellitus with other skin ulcer; L97.412 Non-pressure chronic ulcer of right heel and midfoot with fat layer exposed; L08.89 Other specified local infections of the skin and subcutaneous tissue; B95.62 Methicillin resistant Staphylococcus aureus infection as the cause of diseases classified elsewhere; I70.238 Atherosclerosis of native arteries of right leg with ulceration of other part of lower leg | CPT/HCPCS: 11042 ==

== ENCOUNTER → 2017-12-24 10:44 | Outpatient (CLI) | payer OTHER, MEDICAID, SELFPAY ==
[2017-12-24 12:06] LABS: BUN Creatinine Ratio 32.5 (6-22); Blood Urea Nitrogen 13 mg/dL (7-17); Estimated Glomerular Filt Rate > 60.0 mL/min (>60)
== END ==
PROVIDERS: PCP Family Medicine; Visit Provider Internal Medicine
DX: E11.621 Type 2 diabetes mellitus with foot ulcer (principal)
CPT/HCPCS: 36415; 82565; 84520

== ENCOUNTER → 2017-12-31 09:03 | Outpatient (CLI) | payer OTHER, MEDICAID, SELFPAY ==
--- NOTE | 2017-12-31 | OV.WND_ITS ---
Progress Note Details Patient Name: Ariana Causey Patient Number: [id number] PatientPatientDate: 12/31/2017 Clinician: Jacqueline Patel Clinician Cosigner: Romana Heath Physician / Gambling Box Person: Raphael Bush SUBJECTIVE Chief Complaint This information was obtained from the patient Diabetic ulcers on bilateral feet. Allergies Sulfa (Sulfonamide Antibiotics), Vicodin HPI This information was obtained from the patient 12/31/17. Seen by Dr. Bush. The patient does not report pain or significant drainage associated with the chronic right first and second toe and right heal diabetic ulcers since her last visit and she has her MRA of the right leg scheduled for later today to evaluate for clinically significant PAD as a complicating factor in the refractory nature of the right heel ulcer. 12/24/17. Seen by Dr. Bush. The patient does not report pain or significant drainage associated with the chronic right first and second toe and right heal diabetic ulcers since her last visit. Her wound culture taken at the last visit again grew MRSA plus a new Pantoea species. She's now on linezolid and does not report adverse side effects, fevers , or feeling unwell in general and states her blood sugars continue to improve with most in the low 200's. Her MRA of the right leg is scheduled for 01/03/18. 12/17/17. Seen by Dr. Bush. The patient does not report pain or significant drainage associated with the chronic right first and second toe and right heal diabetic ulcers since her last visit. She does report recurrence however of a left 4th toe diabetic ulcers along with drainage over the dorsum of the left 1st through 3rd toes at sites of previously healed diabetic ulcers. She's been treated recently for a resistant and recurrent MRSA infection of the right foot ulcers and is awaiting a right leg MRA to evaluate for clinically significant PAD as a source of the stalled healing of the right heel ulcer. Her blood sugars are improving however still tend to be above 200 on occasion. 12/10/17. Seen by Dr. Bush. The patient does not report pain or significant drainage associated with the chronic right first and second toe and right heal diabetic ulcers since her last visit. She's completed a course of linezollid that is treating the recent M RSA positive wound culture of the heel. She also has an MRA pending to reevaluate PAD of the leg. 12/03/17. Seen by Dr. Bush. The patient does not report pain or increased drainage associated with the right heel or right 1st and 2nd toe diabetic ulcers since her last visit and she'll complete her course of linezolid today that's been treating the MRSA positive culture. 11/26/17. Seen by Dr. Bush. The patient does not report pain or increased drainage associated with the right heel or right 2nd toe diabetic ulcers since her last visit and she's now on linezolid for the MRSA positive culture taken at her last visit. She does not report fevers, feeling unwell, or adverse side effects of the antibiotics and her NPWT was held at her last visit. 11/19/17. Seen by Dr. Bush. The patient does not report pain or increased drainage associated with the right heel diabetic ulcer since her last visit however there 's new drainage overlying the recently healed right 2nd toe diabetic ulcer. Her blood sugars are again over 300 today and she states she ate a lot of grapes yesterday. 11/05/17. Seen by Dr. Bush. The patient's completed her course of linezolid that was given to treat the recurrent MRSA positive culture taken from the right heel diabetic ulcer. She's tolerating NPWT without difficulty and although she's now received her glucometer and supplies she's still not checking her blood sugars as recommended. 10/29/17. Seen by Dr. Bush. The patient's started her course of linezolid that' s treating the recurrent MRSA culture from the chronic right heel diabetic ulcer. She reports less pain from the site and no increase in drainage or pain associated with the left 3rd and 4th toe nor right 2nd toe diabetic ulcer as well. 10/22/17. Seen by Dr. Bush. The patient continues to report some pain associated with the chronic right heel diabetic ulcer but none with the remaining right 2nd toe nor left 3rd and 4th toe diabetic ulcers. Her heel ulcer wound culture grew MRSA again and she's not currently on antibiotics. She's still not checking her blood sugars although is taking insulin and she has an appointment with her PCP to discuss getting another glucometer. 10/15/17. Seen by Dr. Bush. The patient continues to report some pain associated with the chronic right heel diabetic ulcer but none with the remaining right 2nd toe nor left 3rd and 4th toe diabetic ulcers. Of note, she restarted taking her insulin as prescribed with the assistance of her caregiver however they're not checking blood sugars when taking the insulin. 10/08/17. Seen by Dr. Bush. The patient continues on doxycycline for the recent MRSA and Strep positive wound culture although she should have completed this by now. She feels she may have missed a few doses and of note is also not checking her blood glucose at home. She does not report significant pain or drainage associated with the bilateral diabetic foot ulcers however and is tolerating NPWT treating the right heel ulcer without difficulty. He blood sugar is again elevated at 261 and she's to have an A1c repeated next week. 10/01/17. Seen by Dr. Bush. The patient's now on doxycycline again for MRSA and Streptococcus species cultured from the right 2nd toe diabetic ulcer although there's intermediate resistance noted on the culture sensitivies. She does not report increased pain or drainage from this site nor the right heel or left 2nd and 3rd toe diabetic foot ulcers and she's tolerating the antibiotic without reporting adverse side effects. 09/24/17. Seen by Randell Turner PA-C. The patient reports high blood sugars and increased drainage from her left foot diabetic ulcers. 09/17/17. Seen by Dr. Bush. The patient reports pain associated with the chronic left 3rd and 4th toe and right 2nd toe diabetic ulcers since her last visit and staff report significant maceration in these periulcer areas. Otherwise she'll complete her course of antibiotics that's treating the recent MRSA positive wound culture and is tolerating the wound vac overlying the right lateral heel diabetic ulcer. Her blood sugar is again over 300 today and she states she forgot to take her Lantus this morning. 09/10/17. Seen by Dr. Bush. The patient's now on doxycycline for the MRSA positive culture taken from the chronic right lateral heel diabetic ulcer last week. She does not report adverse side effects or other acute issues regarding the remaining left and right foot diabetic ulcers. Her blood sugars are again over 300 today which she attributes to eating strawberries this morning. 09/03/17. Seen by Dr. Bush. The patient reports some increased drainage associated with the bilateral diabetic foot ulcers since her last visit and she's still not checking blood sugars at home as recommended. Otherwise she's tolerating negative pressure wound therapy without difficulty and does not report any acute issues at this time. 08/27/17. Seen by Dr. Bush. The patient does not report significant pain nor drainage associated with the bilateral diabetic foot ulcers since her last visit and she tolerated negative pressure wound therapy of the right lateral heel diabetic ulcer without difficulty. 08/20/17. Seen by Dr. Bush. The patient does not report significant pain nor drainage associated with the bilateral diabetic foot ulcers since her last visit and she tolerated negative pressure wound therapy of the right lateral heel diabetic ulcer without difficulty. 08/13/17. Seen by Dr. Bush. The patient does not report significant pain nor drainage associated with the bilateral diabetic foot ulcers since her last visit and she tolerated negative pressure wound therapy of the right lateral heel diabetic ulcer without difficulty. Also, her blood sugars are improving although are still elevated at 204 today. 08/06/17. Seen by Dr. Bush. The patient does not report significant pain nor drainage associated with the bilateral diabetic foot ulcers since her last visit and she tolerated negative pressure wound therapy of the right lateral heel diabetic ulcer without difficulty. 07/30/17. Seen by Dr. Bush. The patient does not report significant pain nor drainage associated with the bilateral diabetic foot ulcers since her last visit and she tolerated negative pressure wound therapy of the right lateral heel diabetic ulcer without difficulty. 07/23/17. Seen by Dr. Bush. The patient does not report significant pain nor drainage associated with the bilateral diabetic foot ulcers since her last visit. Her MRI did not indicate osteo-myelitis of the right heel and she's been off of Zyvox that was treated in the recent MRSA infection for over a week. She has continued to apply topical gentamicin to the ulcers as recommended. Of note, her blood sugar is elevated again today at 227 which has been an ongoing issue since she's been attending our clinic. 07/16/17. Seen by Dr. Bush. The patient continues to report improvement in terms of pain and drainage associated with the chronic right and left foot diabetic ulcer since her last visit. She's completed a course of Zyvox that's been treating the recent MRSA positive wound culture of the right heel and does not report adverse side effects. She also has an MRI of the heel next week to evaluate for possible osteomyelitis. 07/13/17. Seen by Dr. Bush. The patient reports significant improvement in terms of her right heel pain since starting on Zyvox last week. She also feels in general the bilateral diabetic foot ulcers are draining less and improving. Her A1c was very high and her primary care provider increased her Lantus to 40 units twice daily. 07/09/17. Seen by Dr. Bush. The patient has not yet picked up her prescription for Zyvox which was approved yesterday to treat the right lateral heel MRSA positive wound culture. She does report increased pain or drainage associated with either the left or right foot diabetic ulcers and her blood sugars are just over 200 today which is an improvement. She is to follow-up with primary care provider today also noting her chronically elevated blood sugars and need for improving terms of her diabetes management in general. 07/06/17. Seen by Dr. Bush. The patient continues to report significant pain associated with bilateral right heel diabetic foot ulcer over the past week. Her wound culture grew a very resistant MRSA and she is not currently on systemic antibiotics. She does not report seeing any pain or drainage associated with the other right and left foot diabetic ulcers. As a side note, the patient states that her 10-year-old grandson is staying with her and has been helping with her insulin. 07/02/17. Seen by Dr. Bush. The patient's blood sugar 316 today and she still not checking them daily at home is recommended. She does not report significant pain or increased drainage associated with bilateral right and left foot diabetic ulcers since her last visit. 06/25/17. She will Dr. Bush. The patient continues on doxycycline for the MRSA positive culture taken from her right foot diabetic ulcer. She does not report increased drainage or pain associated with the bilateral diabetic foot ulcers and her x-ray of the right heel did not confirm osteomyelitis. Her blood sugars continue to be consistently around 250 and she is now checking them daily with the help of her caregiver. 06/18/16. Seen by JED Ruffin. The patient denies pain or increased drainage associated with bilateral diabetic foot ulcers. She was started on Doxycycline last week per MRSA culture. She takes her last dose today. Her blood sugar in clinic today was 255. She continues to be inconsistent with checking her blood sugars at home and continues to smoke despite being counseled on the associated negative effects on wound healing. 06/11/17. Seen by Dr. Bush. The patient does not report pain or increased drainage associated with bilateral diabetic foot ulcers. She has not picked up her antibiotic prescription to treat the recently cultured MRSA. Her blood sugar is 267 today following having a cookie for breakfast and she is also not checking her blood sugars routinely despite taking insulin. Of note, she has shown a pattern of noncompliance since establishing care at our clinic. She does not report fevers or feeling unwell in general. 06/04/17. Seen by Randell Turner PA-C. The patient reports no increase in drainage from her bilateral diabetic foot ulcers. Her CT Angiogram did not show hemodynamically significant stenosis or occlusions of her lower extremity arteries. She has not attempted to make an appointment to see her PCP regarding her persistent hyperglycemia. She continues smoking cigarettes and does not indicate a willingness to cut down or quit to help her ulcers heal. In addition, when a dog hair was pulled from her ulcer today she reported that I may have let my dog lay on my feet when I didn't have a bandage on. 05/28/17. Seen by Randell Turner PA-C. The patient reports stable drainage and pain from her diabetic foot ulcers. She initially refuses to have her blood sugar taken today citing having just eaten a box of candy. She has not attempted to make an appointment with her PCP to discuss her blood sugars. She continues on doxycycline for her ulcer infection and her CT angiogram to evaluate her PAD is scheduled for next week. In addition she continues smoking cigarettes. 05/18/17. Seen by Randell Turner PA-C. The patient reports decreased ulcer pain and stable drainage. Her blood sugars are reportedly over 200 and she has not made an appointment with her PCP to address this as instructed. 05/11/17. Seen by Randell Turner PA-C. The patient reports a decrease in ulcer pain from her bilateral lower extremity ulcers since taking her antibiotics. Her blood sugars continue to be over 150. 05/07/17. Seen by Randell Turner PA-C. The patient reports that her blood sugars have never ever been below 150 and that she has not yet begun taking the Doxycycline I have prescribed. She is willing to undergo debridement but is concerned about pain. Of note regarding pain, when I attempted to palpate her left pedal pulse, she stated that she experienced 7.5/10 pain from the light touch of palpating the dorsum of her foot. 04/29/17. Seen by Randell Turner PA-C. The patient reports increased pain from her ulcers, indicating that she will not be able to tolerate a debridement today of her ulcers. She is willing, however, to undergo a limited debridement to remove some devitalized tissue and obtain a tissue sample for bacterial culture. In addition, the patient notes new ulcers of her left leg and they have been rapidly increasing in size by her report. 04/23/17. Seen by Dr. Bush. The patient does not report significant pain or increased drainage associated with bilateral dorsal toe diabetic ulcers since her last visit. 04/16/17. Seen by Dr. Bush. The patient reports some new ulcers over the left toes and does not know how long they've been there but states they're somewhat painful. She does not report any increase in drainage or pain associated with chronic right first and second toe diabetic ulcers over the past week. She states she is not checking her blood sugars routinely because she is not able to use her glucometer and she has been decreasing her smoking substantially. She does not report fevers or feeling unwell or any other acute issues today. 04/09/17. Seen by Dr. Bush. The patient does not report significant pain nor increased drainage associated with the chronic right first and second toe diabetic ulcers since her last visit. Her arterial Doppler also did not confirm clinically significant PAD.She' s completed her course of oral antibiotics that was treated in the Enterobacter positive wound culture however continues to apply topical gentamicin dressing changes. Her blood sugars again are elevated today at 256. 04/01/17. Seen by Dr. Bush. The patient can to use reports some discomfort associated with the chronic right first and second toe diabetic ulcers. She was to have an arterial Doppler today to evaluate for PAD however was unable to make the appointment due to transportation issues. She continues on ciprofloxacin to treat the Enterobacter positive wound culture taken at the initial visit. Of note, her diabetes has been very poorly controlled and she continues to smoke cigarettes. Her blood sugar today is 354. 03/24/17. Seen by Dr. Bush. The patient continues to report pain associated with the chronic right first and second toe diabetic ulcers. She continues on ciprofloxacin for the recently cultured Enterobacter positive culture. She is a report of her side effects nor fevers or feeling unwell. Also, her blood sugars continue to be poorly controlled and are well over 300 today. 03/17/17. Seen by Dr. Bush. The patient is new to our clinic and presents with chronic right first and second toe diabetic ulcers. She states that they occurred spontaneously about 1 month ago and have been slowly progressing. She reports some modest pain and drainage however does not report fevers. Her diabetes is very poorly controlled with an A1c reportedly of 14 and she smokes half pack of cigarettes daily. Her primary care provider started her on Augmentin yesterday. Past Medical History This information was obtained from the patient Patient has a medical history of: Diabetes, type 2 Diabetic Neuropathy Urinary Incontinence Fibromylagia CVA Osteoarthritis Gastro Esoph. Reflux Disease (GERD) Sleep Apnea Hyperlipidemia Depression Complaints and Symptoms This information was obtained from the patient Patient complains of: General Notes: I have reviewed and concur with the Review of Systems and Past Family Social History documents completed by the clinician, I have reviewed and concur with the Wound Assessment document completed by the clinician Cardiovascular (Central): Dyspnea on Exertion Integumentary (Hair/Skin/Nails): Open Sore Musculoskeletal: Joint Swelling Prior Wound History: Drainage, Erythema, Pain Patient denies complaints or symptoms related to: Cardiovascular (Central): Irregular heart beat Cardiovascular (Central/Peripheral): Intermittent Claudication Constitutional Symptoms (General Health): Chills, Fever Ear/Nose/Mouth/Throat: Hearing Loss / Aid Gastrointestinal (GI): Nausea / Vomiting Hematologic/Lymphatic: Bleeding / Clotting Disorders, Bleeding Tendency Neurological: Loss of Protective Sensation Prior Wound History: Bleeding Psychiatric: Memory Loss Respiratory: Oxygen Use, Shortness of Breath Additional Information Does patient have a history of Cancer? Yes? Complete all questions.: No OBJECTIVE Constitutional BP elevated; Afebrile; Alert and in no distress. Well developed. Alert. Clean appearing.. Height/Length: 63 in (160.02 cm), Weight: 214.2 lbs (97.36 kgs), BMI: 37.9, Temperature: 98.2 ?F (36.78 ?C), Pulse: 93 bpm, Respiratory Rate: 18 breaths/min, Blood Pressure: 140/86 mmHg, Capillary Blood Glucose: 213 mg/dl, Pulse Oximetry: 95 %. Vital Signs Notes: Glucose per patient. Ears, Nose, Mouth, and Throat: No clinically significant hearing loss on informal examination. Cardiovascular: 1+ dorsalis pedis and posterior tibial on the right. 1+ bilateral lower leg edema. Gastrointestinal (GI): Obese. Nondistended.. Integumentary (Hair, Skin) Refer to appropriate clinician wound documentation for this visit; right and left foot ulcers extend to subcut with bases partially covered with pink granulation, remainder fibrin and slough. Maceration present in the periwound areas. Wound #8 Right Heel is a chronic Aguilar Grade 2 Diabetic Ulcer and has received a status of Not Healed. Subsequent wound encounter measurements are 1cm length x 1cm width x 0.3cm depth, with an area of 1 sq cm and a volume of 0.3 cubic cm. No tunneling has been noted. No sinus tract has been noted. No undermining has been noted. There is a moderate amount of serosanguineous drainage noted which has no odor. The patient reports a wound pain of level 2/10. The wound margin is attached. Wound bed has Yes epithelialization, No eschar, Yes slough, Yes bright red, spongy granulation. The periwound skin texture is normal. The periwound skin color is normal. The periwound skin exhibited: Moist, Maceration. The periwound skin did not exhibit: Dry/Scaly. The temperature of the periwound skin is Cool. Periwound skin does not exhibit signs or symptoms of infection. Local Pulse is Palpable. Wound #11 Right, Dorsal Second Toe is a chronic Aguilar Grade 1 Diabetic Ulcer and has received a status of Not Healed. Subsequent wound encounter measurements are 1.4cm length x 1.8cm width x 0.1cm depth, with an area of 2.52 sq cm and a volume of 0.252 cubic cm. Hypergranulation was noted. No tunneling has been noted. No sinus tract has been noted. No undermining has been noted. There is a moderate amount of serosanguineous drainage noted which has no odor. The patient reports a wound pain of level 0/10. The wound margin is attached. Wound bed has No epithelialization, No eschar, Yes slough, Yes bright red, pink, spongy granulation. The periwound skin exhibited: Edema, Moist, Cyanosis. The periwound skin did not exhibit: Brawny Induration, Excoriation, Induration, Callus, Crepitus, Fluctuance, Friable, Rash, Dry/Scaly, Maceration, Atrophie [place], Ecchymosis, Erythema, Hemosiderosis, Pallor, Rubor. The temperature of the periwound skin is Cool. Periwound skin does not exhibit signs or symptoms of infection. Local Pulse is Palpable. Wound #12 Left, Dorsal Fourth Toe is a chronic Aguilar Grade 2 Diabetic Ulcer and has received a status of Not Healed. Subsequent wound encounter measurements are 0.2cm length x 0.2cm width x 0.1cm depth, with an area of 0.04 sq cm and a volume of 0.004 cubic cm. No tunneling has been noted. No sinus tract has been noted. No undermining has been noted. There is a scant amount of serosanguineous drainage noted which has no odor. The patient reports a wound pain of level 0/10. The wound margin is irregular. Wound bed has Yes epithelialization, No eschar, Yes slough, Yes pink, firm granulation. The periwound skin texture is normal. The periwound skin moisture is normal. The periwound skin exhibited: Cyanosis. The periwound skin did not exhibit: Atrophie [place], Ecchymosis, Erythema, Hemosiderosis, Pallor, Rubor. The temperature of the periwound skin is Cool. Periwound skin does not exhibit signs or symptoms of infection. Local Pulse is Doppler. Neurological: Cranial nerves grossly intact with symmetric function normal by informal observation.. ASSESSMENT Active Problems ICD-10 (Encounter Diagnosis) E11.621 - Type 2 diabetes mellitus with foot ulcer (Encounter Diagnosis) L97.412 - Non-pressure chronic ulcer of right heel and midfoot with fat layer exposed (Encounter Diagnosis) L97.512 - Non-pressure chronic ulcer of other part of right foot with fat layer exposed (Encounter Diagnosis) L97.522 - Non-pressure chronic ulcer of other part of left foot with fat layer exposed (Encounter Diagnosis) I70.238 - Atherosclerosis of [place] arteries of right leg with ulceration of other part of lower right leg PROCEDURES Wound #8 Wound #8 (Diabetic Ulcer) is located on the right heel. A skin/subcutaneous tissue level surgical debridement with a total area debrided of 1 sq cm was performed by Raphael Bush MD. Subcutaneous was removed along with devitalized tissue: exudate, slough, and maceration. The following instrument(s) were used: curette. Pain control was achieved using 4% [place]. A time out was conducted prior to the start of the procedure. A minimal amount of bleeding was controlled with pressure. The procedure was tolerated well with a pain level of 0 throughout and a pain level of 0 following the procedure. Post Debridement Measurements: 1cm length x 1cm width x 0.4cm depth; with an area of 1 sq cm and a volume of 0.4 cubic cm; Wound #11 Wound #11 (Diabetic Ulcer) is located on the right, dorsal second toe. A skin/ subcutaneous tissue level surgical debridement with a total area debrided of 2.1 sq cm was performed by Raphael Bush MD. Subcutaneous was removed along with devitalized tissue: exudate and slough. The following instrument(s) were used: curette. Pain control was achieved using 4% Lido. A time out was conducted prior to the start of the procedure. A minimal amount of bleeding was controlled with pressure. The procedure was tolerated well with a pain level of 0 throughout and a pain level of 0 following the procedure. Post Debridement Measurements: 1.4cm length x 1.5cm width x 0.2cm depth; with an area of 2.1 sq cm and a volume of 0.42 cubic cm; Wound #12 Wound #12 (Diabetic Ulcer) is located on the left, dorsal fourth toe. A non- selective mechanical debridement with a total area debrided of 0.09 sq cm was performed by Raphael Bush MD. Non-viable tissue was removed.The procedure was tolerated well with a pain level of 0 throughout and a pain level of 0 following the procedure. Post Debridement Measurements: 0.3cm length x 0.3cm width x 0.1cm depth; with an area of 0.09 sq cm and a volume of 0.009 cubic cm; General Notes: Drainage removed. Additional Information Muscle fascia or bone removed and sent to pathology?: No Muscle fascia or bone removed and sent to pathology?: No PLAN Wound Orders: Wound #8 Right Heel Anesthetic Topical Xylocaine to wound bed. - In clinic. Cleanser Cleanse Wound: - Normal saline and gauze, use distilled water at home. May Shower. - Protect with shower boot/cast protector. Dressings Primary dressing: - Silver aquacel. Cover and secure with: - Foam and hypafix tape. Change Dressing: - Every other day. Wound #11 Right, Dorsal Second Toe Anesthetic Topical Xylocaine to wound bed. - In clinic. Cleanser Cleanse Wound: - Normal saline and gauze, use distilled water at home. May Shower. - Protect with shower boot/cast protector. Dressings Primary dressing: - Silver aquacel. Cover and secure with: - Foam and hypafix tape. Change Dressing: - Every other day. Wound #12 Left, Dorsal Fourth Toe Anesthetic Topical Xylocaine to wound bed. - In clinic. Cleanser Cleanse Wound: - Normal saline and gauze, use distilled water at home. May Shower. - Protect with shower boot/cast protector. Dressings Cover and secure with: - Foam and hypafix tape. Change Dressing: - Every other day. Additional Orders: Follow-Up Appointments Return Appointment: - - One week. Other information: If you develop fever, chills, increased pain, drainage, redness or swelling please call our office. If after hours, respond to the ER. Should you experience any significant changes in your wound(s) or have any questions regarding your home care instructions please contact the wound center @ [phone]. If after hours, contact your primary care physician or go to the hospital emergency room. Scribing Attestation I attest, as the nurse, that I scribed these orders for the physician. General Notes: MRA on 01/03/18. I've reviewed the clinician's documentation and agree with the evaluation and plan as written. In addition the patient's ulcers demonstrate evidence of non-viable devitalized tissue and they will continue to benefit from sharp debridement to help promote granulation and expedite healing. Also, we'll await results of her MRA and refer for vascular intervention accordingly. Electronic Signature(s) Signed By: Date: Raphael Bush MD 01/03/2018 07:01:57 Entered By: Raphael Bush on 01/02/2018 10:53:41
== END ==
PROVIDERS: Family Provider Family Medicine; PCP Family Medicine; Visit Provider Internal Medicine
DX: E11.621 Type 2 diabetes mellitus with foot ulcer (principal); L97.512 Non-pressure chronic ulcer of other part of right foot with fat layer exposed; L97.522 Non-pressure chronic ulcer of other part of left foot with fat layer exposed; E11.622 Type 2 diabetes mellitus with other skin ulcer; L97.412 Non-pressure chronic ulcer of right heel and midfoot with fat layer exposed; I70.238 Atherosclerosis of native arteries of right leg with ulceration of other part of lower leg
CPT/HCPCS: 11042

== ENCOUNTER → 2018-01-03 10:17 | Outpatient (CLI) | payer OTHER, MEDICAID, SELFPAY ==
--- NOTE | 2018-01-03 | DI.MRI.S_ITS ---
PROCEDURE: MR ANGIO LE BI W CON INDICATIONS: TYPE 2 DIABETES W/ RIGHT FOOT ULCER TECHNIQUE: Precontrast axial and coronal TruFISP acquired through the abdomen and pelvis. Multi-station dynamic coronal MRA using Care Bolus timing from the kidneys to the ankles during the administration of contrast, with 3-dimensional maximum intensity projection (MIP) reformats constructed. COMPARISON: [facility], CT, ANGIO AORTA ILIOFEM AND EXT, 06/01/2017, 10:23. FINDINGS: Image quality: Excellent. ABDOMEN: Aorta: Aorta is normal in caliber and is patent. Renal arteries: Renal arteries all appear patent. Extravascular soft tissues: Visualized solid organs are normal in size on limited pre-contrast images. Bowel loops are normal in caliber. No free fluid. No retroperitoneal or mesenteric adenopathy by size criteria. No ventral hernias. Bones: Marrow demonstrates normal overall signal. PELVIS AND BILATERAL LOWER EXTREMITIES: Right sided vessels: Mild diffuse stenosis within the common, internal, and external iliac arteries. Mild diffuse stenosis within the common, profunda, and superficial femoral arteries. There is a superimposed high grade focal stenosis within the right mid superficial femoral artery. Above and below knee popliteal artery patent. Anterior tibial artery, tibial peroneal trunk, peroneal and posterior tibial arteries patent to their normal termini. Left sided vessels: Mild diffuse stenosis within the common, internal, and external iliac arteries. Common femoral artery demonstrates a high bifurcation. Moderate to high-grade focal stenosis within the proximal superficial femoral artery, which is otherwise mildly diffusely stenotic. Above and below-knee popliteal artery patent. Anterior tibial artery demonstrates a high origin from the above-knee popliteal artery, indicating a normal variant, and is patent. Tibioperoneal trunk/below-knee popliteal artery patent. Posterior tibial artery patent to distal calf. Peroneal artery not well seen. IMPRESSION: 1. No significant inflow stenosis. 2. 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 Interventional radiology consultation recommended. 3. At least 2 vessel right and single vessel left lower extremity runoff. Dictated by: Reed Osuna M.D. on 01/03/2018 at 12:52 Approved by: Reed Osuna M.D. on 01/03/2018 at 13:03
== END ==
PROVIDERS: Family Provider Family Medicine; PCP Family Medicine; Visit Provider Internal Medicine
DX: E11.621 Type 2 diabetes mellitus with foot ulcer (principal); E11.51 Type 2 diabetes mellitus with diabetic peripheral angiopathy without gangrene; L97.412 Non-pressure chronic ulcer of right heel and midfoot with fat layer exposed
CPT/HCPCS: C8912

== ENCOUNTER → 2018-01-07 10:22 | Outpatient (CLI) | payer OTHER, MEDICAID, SELFPAY ==
--- NOTE | 2018-01-07 | OV.WND_ITS ---
Progress Note Details Patient Name: Ariana Causey Patient Number: [id number] PatientPatientDate: 01/07/2018 Clinician: Jacqueline Patel Clinician Cosigner: Romana Heath Physician / [facility] Manager: Raphael Bush SUBJECTIVE Chief Complaint This information was obtained from the patient Diabetic ulcers on bilateral feet. Allergies Sulfa (Sulfonamide Antibiotics), Vicodin HPI This information was obtained from the patient 01/07/18. Seen by Dr. Bush. The patient does not report pain or significant drainage associated with the chronic right first and second toe and right heal diabetic ulcers since her last visit. Her MRA revealed a significant right SFA stenosis amenable to intervention along with some left leg PAD. She does not report rest pain necessarily but does have pain in her feet when lying in bed and is relatively limited in her mobility. 12/31/17. Seen by Dr. Bush. The patient does not report pain or significant drainage associated with the chronic right first and second toe and right heal diabetic ulcers since her last visit and she has her MRA of the right leg scheduled for later today to evaluate for clinically significant PAD as a complicating factor in the refractory nature of the right heel ulcer. 12/24/17. Seen by Dr. Bush. The patient does not report pain or significant drainage associated with the chronic right first and second toe and right heal diabetic ulcers since her last visit. Her wound culture taken at the last visit again grew MRSA plus a new Pantoea species. She's now on linezolid and does not report adverse side effects, fevers , or feeling unwell in general and states her blood sugars continue to improve with most in the low 200's. Her MRA of the right leg is scheduled for 01/03/18. 12/17/17. Seen by Dr. Bush. The patient does not report pain or significant drainage associated with the chronic right first and second toe and right heal diabetic ulcers since her last visit. She does report recurrence however of a left 4th toe diabetic ulcers along with drainage over the dorsum of the left 1st through 3rd toes at sites of previously healed diabetic ulcers. She's been treated recently for a resistant and recurrent MRSA infection of the right foot ulcers and is awaiting a right leg MRA to evaluate for clinically significant PAD as a source of the stalled healing of the right heel ulcer. Her blood sugars are improving however still tend to be above 200 on occasion. 12/10/17. Seen by Dr. Bush. The patient does not report pain or significant drainage associated with the chronic right first and second toe and right heal diabetic ulcers since her last visit. She's completed a course of linezollid that is treating the recent M RSA positive wound culture of the heel. She also has an MRA pending to reevaluate PAD of the leg. 12/03/17. Seen by Dr. Bush. The patient does not report pain or increased drainage associated with the right heel or right 1st and 2nd toe diabetic ulcers since her last visit and she'll complete her course of linezolid today that's been treating the MRSA positive culture. 11/26/17. Seen by Dr. Bush. The patient does not report pain or increased drainage associated with the right heel or right 2nd toe diabetic ulcers since her last visit and she's now on linezolid for the MRSA positive culture taken at her last visit. She does not report fevers, feeling unwell, or adverse side effects of the antibiotics and her NPWT was held at her last visit. 11/19/17. Seen by Dr. Bush. The patient does not report pain or increased drainage associated with the right heel diabetic ulcer since her last visit however there 's new drainage overlying the recently healed right 2nd toe diabetic ulcer. Her blood sugars are again over 300 today and she states she ate a lot of grapes yesterday. 11/05/17. Seen by Dr. Bush. The patient's completed her course of linezolid that was given to treat the recurrent MRSA positive culture taken from the right heel diabetic ulcer. She's tolerating NPWT without difficulty and although she's now received her glucometer and supplies she's still not checking her blood sugars as recommended. 10/29/17. Seen by Dr. Bush. The patient's started her course of linezolid that' s treating the recurrent MRSA culture from the chronic right heel diabetic ulcer. She reports less pain from the site and no increase in drainage or pain associated with the left 3rd and 4th toe nor right 2nd toe diabetic ulcer as well. 10/22/17. Seen by Dr. Bush. The patient continues to report some pain associated with the chronic right heel diabetic ulcer but none with the remaining right 2nd toe nor left 3rd and 4th toe diabetic ulcers. Her heel ulcer wound culture grew MRSA again and she's not currently on antibiotics. She's still not checking her blood sugars although is taking insulin and she has an appointment with her PCP to discuss getting another glucometer. 10/15/17. Seen by Dr. Bush. The patient continues to report some pain associated with the chronic right heel diabetic ulcer but none with the remaining right 2nd toe nor left 3rd and 4th toe diabetic ulcers. Of note, she restarted taking her insulin as prescribed with the assistance of her caregiver however they're not checking blood sugars when taking the insulin. 10/08/17. Seen by Dr. Bush. The patient continues on doxycycline for the recent MRSA and Strep positive wound culture although she should have completed this by now. She feels she may have missed a few doses and of note is also not checking her blood glucose at home. She does not report significant pain or drainage associated with the bilateral diabetic foot ulcers however and is tolerating NPWT treating the right heel ulcer without difficulty. He blood sugar is again elevated at 261 and she's to have an A1c repeated next week. 10/01/17. Seen by Dr. Bush. The patient's now on doxycycline again for MRSA and Streptococcus species cultured from the right 2nd toe diabetic ulcer although there's intermediate resistance noted on the culture sensitivies. She does not report increased pain or drainage from this site nor the right heel or left 2nd and 3rd toe diabetic foot ulcers and she's tolerating the antibiotic without reporting adverse side effects. 09/24/17. Seen by Randell Turner PA-C. The patient reports high blood sugars and increased drainage from her left foot diabetic ulcers. 09/17/17. Seen by Dr. Bush. The patient reports pain associated with the chronic left 3rd and 4th toe and right 2nd toe diabetic ulcers since her last visit and staff report significant maceration in these periulcer areas. Otherwise she'll complete her course of antibiotics that's treating the recent MRSA positive wound culture and is tolerating the wound vac overlying the right lateral heel diabetic ulcer. Her blood sugar is again over 300 today and she states she forgot to take her Lantus this morning. 09/10/17. Seen by Dr. Bush. The patient's now on doxycycline for the MRSA positive culture taken from the chronic right lateral heel diabetic ulcer last week. She does not report adverse side effects or other acute issues regarding the remaining left and right foot diabetic ulcers. Her blood sugars are again over 300 today which she attributes to eating strawberries this morning. 09/03/17. Seen by Dr. Bush. The patient reports some increased drainage associated with the bilateral diabetic foot ulcers since her last visit and she's still not checking blood sugars at home as recommended. Otherwise she's tolerating negative pressure wound therapy without difficulty and does not report any acute issues at this time. 08/27/17. Seen by Dr. Bush. The patient does not report significant pain nor drainage associated with the bilateral diabetic foot ulcers since her last visit and she tolerated negative pressure wound therapy of the right lateral heel diabetic ulcer without difficulty. 08/20/17. Seen by Dr. Bush. The patient does not report significant pain nor drainage associated with the bilateral diabetic foot ulcers since her last visit and she tolerated negative pressure wound therapy of the right lateral heel diabetic ulcer without difficulty. 08/13/17. Seen by Dr. Bush. The patient does not report significant pain nor drainage associated with the bilateral diabetic foot ulcers since her last visit and she tolerated negative pressure wound therapy of the right lateral heel diabetic ulcer without difficulty. Also, her blood sugars are improving although are still elevated at 204 today. 08/06/17. Seen by Dr. Bush. The patient does not report significant pain nor drainage associated with the bilateral diabetic foot ulcers since her last visit and she tolerated negative pressure wound therapy of the right lateral heel diabetic ulcer without difficulty. 07/30/17. Seen by Dr. Bush. The patient does not report significant pain nor drainage associated with the bilateral diabetic foot ulcers since her last visit and she tolerated negative pressure wound therapy of the right lateral heel diabetic ulcer without difficulty. 07/23/17. Seen by Dr. Bush. The patient does not report significant pain nor drainage associated with the bilateral diabetic foot ulcers since her last visit. Her MRI did not indicate osteo-myelitis of the right heel and she's been off of Zyvox that was treated in the recent MRSA infection for over a week. She has continued to apply topical gentamicin to the ulcers as recommended. Of note, her blood sugar is elevated again today at 227 which has been an ongoing issue since she's been attending our clinic. 07/16/17. Seen by Dr. Bush. The patient continues to report improvement in terms of pain and drainage associated with the chronic right and left foot diabetic ulcer since her last visit. She's completed a course of Zyvox that's been treating the recent MRSA positive wound culture of the right heel and does not report adverse side effects. She also has an MRI of the heel next week to evaluate for possible osteomyelitis. 07/13/17. Seen by Dr. Bush. The patient reports significant improvement in terms of her right heel pain since starting on Zyvox last week. She also feels in general the bilateral diabetic foot ulcers are draining less and improving. Her A1c was very high and her primary care provider increased her Lantus to 40 units twice daily. 07/09/17. Seen by Dr. Bush. The patient has not yet picked up her prescription for Zyvox which was approved yesterday to treat the right lateral heel MRSA positive wound culture. She does report increased pain or drainage associated with either the left or right foot diabetic ulcers and her blood sugars are just over 200 today which is an improvement. She is to follow-up with primary care provider today also noting her chronically elevated blood sugars and need for improving terms of her diabetes management in general. 07/06/17. Seen by Dr. Bush. The patient continues to report significant pain associated with bilateral right heel diabetic foot ulcer over the past week. Her wound culture grew a very resistant MRSA and she is not currently on systemic antibiotics. She does not report seeing any pain or drainage associated with the other right and left foot diabetic ulcers. As a side note, the patient states that her 10-year-old grandson is staying with her and has been helping with her insulin. 07/02/17. Seen by Dr. Bush. The patient's blood sugar 316 today and she still not checking them daily at home is recommended. She does not report significant pain or increased drainage associated with bilateral right and left foot diabetic ulcers since her last visit. 06/25/17. She will Dr. Bush. The patient continues on doxycycline for the MRSA positive culture taken from her right foot diabetic ulcer. She does not report increased drainage or pain associated with the bilateral diabetic foot ulcers and her x-ray of the right heel did not confirm osteomyelitis. Her blood sugars continue to be consistently around 250 and she is now checking them daily with the help of her caregiver. 06/18/16. Seen by JED Ruffin. The patient denies pain or increased drainage associated with bilateral diabetic foot ulcers. She was started on Doxycycline last week per MRSA culture. She takes her last dose today. Her blood sugar in clinic today was 255. She continues to be inconsistent with checking her blood sugars at home and continues to smoke despite being counseled on the associated negative effects on wound healing. 06/11/17. Seen by Dr. Bush. The patient does not report pain or increased drainage associated with bilateral diabetic foot ulcers. She has not picked up her antibiotic prescription to treat the recently cultured MRSA. Her blood sugar is 267 today following having a cookie for breakfast and she is also not checking her blood sugars routinely despite taking insulin. Of note, she has shown a pattern of noncompliance since establishing care at our clinic. She does not report fevers or feeling unwell in general. 06/04/17. Seen by Randell Turner PA-C. The patient reports no increase in drainage from her bilateral diabetic foot ulcers. Her CT Angiogram did not show hemodynamically significant stenosis or occlusions of her lower extremity arteries. She has not attempted to make an appointment to see her PCP regarding her persistent hyperglycemia. She continues smoking cigarettes and does not indicate a willingness to cut down or quit to help her ulcers heal. In addition, when a dog hair was pulled from her ulcer today she reported that I may have let my dog lay on my feet when I didn't have a bandage on. 05/28/17. Seen by Randell Turner PA-C. The patient reports stable drainage and pain from her diabetic foot ulcers. She initially refuses to have her blood sugar taken today citing having just eaten a box of candy. She has not attempted to make an appointment with her PCP to discuss her blood sugars. She continues on doxycycline for her ulcer infection and her CT angiogram to evaluate her PAD is scheduled for next week. In addition she continues smoking cigarettes. 05/18/17. Seen by Randell Turner PA-C. The patient reports decreased ulcer pain and stable drainage. Her blood sugars are reportedly over 200 and she has not made an appointment with her PCP to address this as instructed. 05/11/17. Seen by Randell Turner PA-C. The patient reports a decrease in ulcer pain from her bilateral lower extremity ulcers since taking her antibiotics. Her blood sugars continue to be over 150. 05/07/17. Seen by Randell Turner PA-C. The patient reports that her blood sugars have never ever been below 150 and that she has not yet begun taking the Doxycycline I have prescribed. She is willing to undergo debridement but is concerned about pain. Of note regarding pain, when I attempted to palpate her left pedal pulse, she stated that she experienced 7.5/10 pain from the light touch of palpating the dorsum of her foot. 04/29/17. Seen by Randell Turner PA-C. The patient reports increased pain from her ulcers, indicating that she will not be able to tolerate a debridement today of her ulcers. She is willing, however, to undergo a limited debridement to remove some devitalized tissue and obtain a tissue sample for bacterial culture. In addition, the patient notes new ulcers of her left leg and they have been rapidly increasing in size by her report. 04/23/17. Seen by Dr. Bush. The patient does not report significant pain or increased drainage associated with bilateral dorsal toe diabetic ulcers since her last visit. 04/16/17. Seen by Dr. Bush. The patient reports some new ulcers over the left toes and does not know how long they've been there but states they're somewhat painful. She does not report any increase in drainage or pain associated with chronic right first and second toe diabetic ulcers over the past week. She states she is not checking her blood sugars routinely because she is not able to use her glucometer and she has been decreasing her smoking substantially. She does not report fevers or feeling unwell or any other acute issues today. 04/09/17. Seen by Dr. Bush. The patient does not report significant pain nor increased drainage associated with the chronic right first and second toe diabetic ulcers since her last visit. Her arterial Doppler also did not confirm clinically significant PAD.She' s completed her course of oral antibiotics that was treated in the Enterobacter positive wound culture however continues to apply topical gentamicin dressing changes. Her blood sugars again are elevated today at 256. 04/01/17. Seen by Dr. Bush. The patient can to use reports some discomfort associated with the chronic right first and second toe diabetic ulcers. She was to have an arterial Doppler today to evaluate for PAD however was unable to make the appointment due to transportation issues. She continues on ciprofloxacin to treat the Enterobacter positive wound culture taken at the initial visit. Of note, her diabetes has been very poorly controlled and she continues to smoke cigarettes. Her blood sugar today is 354. 03/24/17. Seen by Dr. Bush. The patient continues to report pain associated with the chronic right first and second toe diabetic ulcers. She continues on ciprofloxacin for the recently cultured Enterobacter positive culture. She is a report of her side effects nor fevers or feeling unwell. Also, her blood sugars continue to be poorly controlled and are well over 300 today. 03/17/17. Seen by Dr. Bush. The patient is new to our clinic and presents with chronic right first and second toe diabetic ulcers. She states that they occurred spontaneously about 1 month ago and have been slowly progressing. She reports some modest pain and drainage however does not report fevers. Her diabetes is very poorly controlled with an A1c reportedly of 14 and she smokes half pack of cigarettes daily. Her primary care provider started her on Augmentin yesterday. Past Medical History This information was obtained from the patient Patient has a medical history of: Diabetes, type 2 Diabetic Neuropathy Urinary Incontinence Fibromylagia CVA Osteoarthritis Gastro Esoph. Reflux Disease (GERD) Sleep Apnea Hyperlipidemia Depression Complaints and Symptoms This information was obtained from the patient Patient complains of: General Notes: I have reviewed and concur with the Review of Systems and Past Family Social History documents completed by the clinician, I have reviewed and concur with the Wound Assessment document completed by the clinician Cardiovascular (Central): Dyspnea on Exertion Integumentary (Hair/Skin/Nails): Open Sore Musculoskeletal: Joint Swelling Prior Wound History: Drainage, Erythema, Pain Patient denies complaints or symptoms related to: Cardiovascular (Central): Irregular heart beat Cardiovascular (Central/Peripheral): Intermittent Claudication Constitutional Symptoms (General Health): Chills, Fever Ear/Nose/Mouth/Throat: Hearing Loss / Aid Gastrointestinal (GI): Nausea / Vomiting Hematologic/Lymphatic: Bleeding / Clotting Disorders, Bleeding Tendency Neurological: Loss of Protective Sensation Prior Wound History: Bleeding Psychiatric: Memory Loss Respiratory: Oxygen Use, Shortness of Breath Additional Information Does patient have a history of Cancer? Yes? Complete all questions.: No OBJECTIVE Constitutional BP elevated; Afebrile; Alert and in no distress. Well developed. Alert. Clean appearing.. Height/Length: 63 in (160.02 cm), Weight: 214.2 lbs (97.36 kgs), BMI: 37.9, Temperature: 98.2 ?F (36.78 ?C), Pulse: 96 bpm, Respiratory Rate: 18 breaths/min, Blood Pressure: 155/90 mmHg, Capillary Blood Glucose: 244 mg/dl, Pulse Oximetry: 95 %. Vital Signs Notes: Glucose per patient. Ears, Nose, Mouth, and Throat: No clinically significant hearing loss on informal examination. Respiratory: No respiratory distress. Even respirations and without use of accessory muscles.. Cardiovascular: monophasic pedal pulses bilaterally. 1+ bilateral lower leg edema. Gastrointestinal (GI): Obese. Nondistended.. Integumentary (Hair, Skin) Mild periwound erythema without warmth. Refer to appropriate clinician wound documentation for this visit; right and left foot ulcers extend to subcut with bases partially covered with pink granulation, remainder fibrin and sloughl; right heel ulcer deeper than on previous review. Maceration present in the periwound areas. Wound #8 Right Heel is a chronic Agu[place] Grade 2 Diabetic Ulcer and has received a status of Not Healed. Subsequent wound encounter measurements are 1cm length x 1cm width x 0.2cm depth, with an area of 1 sq cm and a volume of 0.2 cubic cm. No tunneling has been noted. No sinus tract has been noted. No undermining has been noted. There is a moderate amount of serosanguineous drainage noted which has no odor. The patient reports a wound pain of level 2/10. The wound margin is attached. Wound bed has Yes epithelialization, No eschar, Yes slough, Yes bright red, pink, spongy granulation. The periwound skin texture is normal. The periwound skin exhibited: Moist, Maceration, Cyanosis. The periwound skin did not exhibit: Dry/Scaly, Atrophie [place], Ecchymosis, Erythema, Hemosiderosis, Pallor, Rubor. The temperature of the periwound skin is Cool. Periwound skin does not exhibit signs or symptoms of infection. Local Pulse is Palpable. Wound #11 Right, Dorsal Second Toe is a chronic Aguilar Grade 1 Diabetic Ulcer and has received a status of Not Healed. Subsequent wound encounter measurements are 1.5cm length x 1.6cm width x 0.1cm depth, with an area of 2.4 sq cm and a volume of 0.24 cubic cm. Hypergranulation was noted. No tunneling has been noted. No sinus tract has been noted. No undermining has been noted. There is a moderate amount of serosanguineous drainage noted which has no odor. The patient reports a wound pain of level 0/10. The wound margin is attached. Wound bed has No epithelialization, No eschar, Yes slough, Yes bright red, spongy granulation. The periwound skin moisture is normal. The periwound skin exhibited: Edema, Cyanosis. The periwound skin did not exhibit: Brawny Induration, Excoriation, Induration, Callus, Crepitus, Fluctuance, [place], Rash, Atrophie [place], Ecchymosis, Erythema, Hemosiderosis , Pallor, Rubor. The temperature of the periwound skin is Cool. Periwound skin does not exhibit signs or symptoms of infection. Local Pulse is Palpable. Wound #12 Left, Dorsal Fourth Toe is a chronic Aguilar Grade 2 Diabetic Ulcer and has received a status of Not Healed. Subsequent wound encounter measurements are 0.1cm length x 0.1cm width with no measurable depth, with an area of 0.01 sq cm . No tunneling has been noted. No sinus tract has been noted. No undermining has been noted. There is a scant amount of serosanguineous drainage noted which has no odor. The patient reports a wound pain of level 0/10. The wound margin is irregular. Wound bed has Yes epithelialization, No eschar, Yes slough, No granulation. The periwound skin texture is normal. The periwound skin moisture is normal. The periwound skin exhibited: Cyanosis. The periwound skin did not exhibit: Atrophie [place], Ecchymosis, Erythema, Hemosiderosis, Pallor, Rubor. The temperature of the periwound skin is Cool. Periwound skin does not exhibit signs or symptoms of infection. Local Pulse is Doppler. General Notes: Pin point dried slough covered base. Neurological: Cranial nerves grossly intact with symmetric function normal by informal observation.. ASSESSMENT Active Problems ICD-10 (Encounter Diagnosis) E11.621 - Type 2 diabetes mellitus with foot ulcer (Encounter Diagnosis) L97.412 - Non-pressure chronic ulcer of right heel and midfoot with fat layer exposed (Encounter Diagnosis) L97.512 - Non-pressure chronic ulcer of other part of right foot with fat layer exposed (Encounter Diagnosis) L97.522 - Non-pressure chronic ulcer of other part of left foot with fat layer exposed (Encounter Diagnosis) I70.238 - Atherosclerosis of [place] arteries of right leg with ulceration of other part of lower right leg PROCEDURES Wound #8 Wound #8 (Diabetic Ulcer) is located on the right heel. A skin/subcutaneous tissue level surgical debridement with a total area debrided of 1 sq cm was performed by Raphael Bush MD. Subcutaneous was removed along with devitalized tissue: exudate and slough. The following instrument(s) were used: curette. Pain control was achieved using 4% Lido. A time out was conducted prior to the start of the procedure. A minimal amount of bleeding was controlled with n/a. The procedure was tolerated well with a pain level of 0 throughout and a pain level of 0 following the procedure. Post Debridement Measurements: 1cm length x 1cm width x 0.3cm depth; with an area of 1 sq cm and a volume of 0.3 cubic cm; Wound #11 Wound #11 (Diabetic Ulcer) is located on the right, dorsal second toe. A skin/ subcutaneous tissue level surgical debridement with a total area debrided of 2.4 sq cm was performed by Raphael Bush MD. Subcutaneous was removed along with devitalized tissue: exudate and slough. The following instrument(s) were used: curette. Pain control was achieved using 4% Lido. A time out was conducted prior to the start of the procedure. A minimal amount of bleeding was controlled with n/a. The procedure was tolerated well with a pain level of 0 throughout and a pain level of 0 following the procedure. Post Debridement Measurements: 1.5cm length x 1.6cm width x 0.2cm depth; with an area of 2.4 sq cm and a volume of 0.48 cubic cm; Wound #12 Wound #12 (Diabetic Ulcer) is located on the left, dorsal fourth toe. A non- selective mechanical debridement with a total area debrided of 0.01 sq cm was performed by Raphael Bush MD. Non-viable tissue was removed.The procedure was tolerated well with a pain level of 0 throughout and a pain level of 0 following the procedure. Post Debridement Measurements: 0.1cm length x 0.1cm width x 0.1cm depth; with an area of 0.01 sq cm and a volume of 0.001 cubic cm; Additional Information Muscle fascia or bone removed and sent to pathology?: No Muscle fascia or bone removed and sent to pathology?: No PLAN Wound Orders: Wound #8 Right Heel Anesthetic Topical Xylocaine to wound bed. - In clinic. Cleanser Cleanse Wound: - Normal saline and gauze, use distilled water at home. May Shower. - Protect with shower boot/cast protector. Dressings Primary dressing: - Silver aquacel. Cover and secure with: - Foam and hypafix tape. Change Dressing: - Every other day. Wound #11 Right, Dorsal Second Toe Anesthetic Topical Xylocaine to wound bed. - In clinic. Cleanser Cleanse Wound: - Normal saline and gauze, use distilled water at home. May Shower. - Protect with shower boot/cast protector. Dressings Primary dressing: - Silver aquacel. Cover and secure with: - Foam and hypafix tape. Change Dressing: - Every other day. Wound #12 Left, Dorsal Fourth Toe Anesthetic Topical Xylocaine to wound bed. - In clinic. Cleanser Cleanse Wound: - Normal saline and gauze, use distilled water at home. May Shower. - Protect with shower boot/cast protector. Dressings Cover and secure with: - Foam and hypafix tape. Change Dressing: - Every other day. Additional Orders: Follow-Up Appointments Return Appointment: - - One week. Other information: If you develop fever, chills, increased pain, drainage, redness or swelling please call our office. If after hours, respond to the ER. Should you experience any significant changes in your wound(s) or have any questions regarding your home care instructions please contact the wound center @ [phone]. If after hours, contact your primary care physician or go to the hospital emergency room. Scribing Attestation I attest, as the nurse, that I scribed these orders for the physician. I've reviewed the clinician's documentation and agree with the evaluation and plan as written. In addition the patient's ulcers demonstrate evidence of non-viable devitalized tissue and they will continue to benefit from sharp debridement to help promote granulation and expedite healing. Also, I'll refer the patient to [facility] for consideration of intervention to address the right SFA stenosis noting the very refractory nature and stalled healing of the right heel diabetic ulcer. Electronic Signature(s) Signed By: Date: Raphael Bush MD 01/10/2018 13:43:10 Entered By: Raphael Bush on 01/10/2018 12:55:33
== END ==
PROVIDERS: Family Provider Family Medicine; PCP Family Medicine; Visit Provider Internal Medicine
DX: E11.621 Type 2 diabetes mellitus with foot ulcer (principal); L97.512 Non-pressure chronic ulcer of other part of right foot with fat layer exposed; L97.522 Non-pressure chronic ulcer of other part of left foot with fat layer exposed; E11.622 Type 2 diabetes mellitus with other skin ulcer; L97.412 Non-pressure chronic ulcer of right heel and midfoot with fat layer exposed; I70.238 Atherosclerosis of native arteries of right leg with ulceration of other part of lower leg
CPT/HCPCS: 11042

== ENCOUNTER → 2018-01-14 09:25 | Outpatient (CLI) | payer OTHER, MEDICAID, SELFPAY ==
--- NOTE | 2018-01-14 | OV.WND_ITS ---
Progress Note Details Patient Name: Ariana Causey Patient Number: [id number] PatientPatientDate: 01/14/2018 Clinician: Jacqueline Patel Physician / Trailer Park Manager: Raphael Bush SUBJECTIVE Chief Complaint This information was obtained from the patient Diabetic ulcers on bilateral feet. Allergies Sulfa (Sulfonamide Antibiotics), Vicodin HPI This information was obtained from the patient 01/14/18. Seen by Dr. Bush. The patient does not report pain or significant drainage associated with the chronic right first and second toe and right heal diabetic ulcers since her last visit. She reports a painful, progressive rash over her gluteals for which she's applying topical nystatin and she states she's not yet been contacted regarding her referral to [facility] to address the right SFA stenosis which is likely delaying healing of the chronic right heel ulcer. 01/07/18. Seen by Dr. Bush. The patient does not report pain or significant drainage associated with the chronic right first and second toe and right heal diabetic ulcers since her last visit. Her MRA revealed a significant right SFA stenosis amenable to intervention along with some left leg PAD. She does not report rest pain necessarily but does have pain in her feet when lying in bed and is relatively limited in her mobility. 12/31/17. Seen by Dr. Bush. The patient does not report pain or significant drainage associated with the chronic right first and second toe and right heal diabetic ulcers since her last visit and she has her MRA of the right leg scheduled for later today to evaluate for clinically significant PAD as a complicating factor in the refractory nature of the right heel ulcer. 12/24/17. Seen by Dr. Bush. The patient does not report pain or significant drainage associated with the chronic right first and second toe and right heal diabetic ulcers since her last visit. Her wound culture taken at the last visit again grew MRSA plus a new Pantoea species. She's now on linezolid and does not report adverse side effects, fevers , or feeling unwell in general and states her blood sugars continue to improve with most in the low 200's. Her MRA of the right leg is scheduled for 01/03/18. 12/17/17. Seen by Dr. Bush. The patient does not report pain or significant drainage associated with the chronic right first and second toe and right heal diabetic ulcers since her last visit. She does report recurrence however of a left 4th toe diabetic ulcers along with drainage over the dorsum of the left 1st through 3rd toes at sites of previously healed diabetic ulcers. She's been treated recently for a resistant and recurrent MRSA infection of the right foot ulcers and is awaiting a right leg MRA to evaluate for clinically significant PAD as a source of the stalled healing of the right heel ulcer. Her blood sugars are improving however still tend to be above 200 on occasion. 12/10/17. Seen by Dr. Bush. The patient does not report pain or significant drainage associated with the chronic right first and second toe and right heal diabetic ulcers since her last visit. She's completed a course of linezollid that is treating the recent M RSA positive wound culture of the heel. She also has an MRA pending to reevaluate PAD of the leg. 12/03/17. Seen by Dr. Bush. The patient does not report pain or increased drainage associated with the right heel or right 1st and 2nd toe diabetic ulcers since her last visit and she'll complete her course of linezolid today that's been treating the MRSA positive culture. 11/26/17. Seen by Dr. Bush. The patient does not report pain or increased drainage associated with the right heel or right 2nd toe diabetic ulcers since her last visit and she's now on linezolid for the MRSA positive culture taken at her last visit. She does not report fevers, feeling unwell, or adverse side effects of the antibiotics and her NPWT was held at her last visit. 11/19/17. Seen by Dr. Bush. The patient does not report pain or increased drainage associated with the right heel diabetic ulcer since her last visit however there 's new drainage overlying the recently healed right 2nd toe diabetic ulcer. Her blood sugars are again over 300 today and she states she ate a lot of grapes yesterday. 11/05/17. Seen by Dr. Bush. The patient's completed her course of linezolid that was given to treat the recurrent MRSA positive culture taken from the right heel diabetic ulcer. She's tolerating NPWT without difficulty and although she's now received her glucometer and supplies she's still not checking her blood sugars as recommended. 10/29/17. Seen by Dr. Bush. The patient's started her course of linezolid that' s treating the recurrent MRSA culture from the chronic right heel diabetic ulcer. She reports less pain from the site and no increase in drainage or pain associated with the left 3rd and 4th toe nor right 2nd toe diabetic ulcer as well. 10/22/17. Seen by Dr. Bush. The patient continues to report some pain associated with the chronic right heel diabetic ulcer but none with the remaining right 2nd toe nor left 3rd and 4th toe diabetic ulcers. Her heel ulcer wound culture grew MRSA again and she's not currently on antibiotics. She's still not checking her blood sugars although is taking insulin and she has an appointment with her PCP to discuss getting another glucometer. 10/15/17. Seen by Dr. Bush. The patient continues to report some pain associated with the chronic right heel diabetic ulcer but none with the remaining right 2nd toe nor left 3rd and 4th toe diabetic ulcers. Of note, she restarted taking her insulin as prescribed with the assistance of her caregiver however they're not checking blood sugars when taking the insulin. 10/08/17. Seen by Dr. Bush. The patient continues on doxycycline for the recent MRSA and Strep positive wound culture although she should have completed this by now. She feels she may have missed a few doses and of note is also not checking her blood glucose at home. She does not report significant pain or drainage associated with the bilateral diabetic foot ulcers however and is tolerating NPWT treating the right heel ulcer without difficulty. He blood sugar is again elevated at 261 and she's to have an A1c repeated next week. 10/01/17. Seen by Dr. Bush. The patient's now on doxycycline again for MRSA and Streptococcus species cultured from the right 2nd toe diabetic ulcer although there's intermediate resistance noted on the culture sensitivies. She does not report increased pain or drainage from this site nor the right heel or left 2nd and 3rd toe diabetic foot ulcers and she's tolerating the antibiotic without reporting adverse side effects. 09/24/17. Seen by Randell Turner PA-C. The patient reports high blood sugars and increased drainage from her left foot diabetic ulcers. 09/17/17. Seen by Dr. Bush. The patient reports pain associated with the chronic left 3rd and 4th toe and right 2nd toe diabetic ulcers since her last visit and staff report significant maceration in these periulcer areas. Otherwise she'll complete her course of antibiotics that's treating the recent MRSA positive wound culture and is tolerating the wound vac overlying the right lateral heel diabetic ulcer. Her blood sugar is again over 300 today and she states she forgot to take her Lantus this morning. 09/10/17. Seen by Dr. Bush. The patient's now on doxycycline for the MRSA positive culture taken from the chronic right lateral heel diabetic ulcer last week. She does not report adverse side effects or other acute issues regarding the remaining left and right foot diabetic ulcers. Her blood sugars are again over 300 today which she attributes to eating strawberries this morning. 09/03/17. Seen by Dr. Bush. The patient reports some increased drainage associated with the bilateral diabetic foot ulcers since her last visit and she's still not checking blood sugars at home as recommended. Otherwise she's tolerating negative pressure wound therapy without difficulty and does not report any acute issues at this time. 08/27/17. Seen by Dr. Bush. The patient does not report significant pain nor drainage associated with the bilateral diabetic foot ulcers since her last visit and she tolerated negative pressure wound therapy of the right lateral heel diabetic ulcer without difficulty. 08/20/17. Seen by Dr. Bush. The patient does not report significant pain nor drainage associated with the bilateral diabetic foot ulcers since her last visit and she tolerated negative pressure wound therapy of the right lateral heel diabetic ulcer without difficulty. 08/13/17. Seen by Dr. Bush. The patient does not report significant pain nor drainage associated with the bilateral diabetic foot ulcers since her last visit and she tolerated negative pressure wound therapy of the right lateral heel diabetic ulcer without difficulty. Also, her blood sugars are improving although are still elevated at 204 today. 08/06/17. Seen by Dr. Bush. The patient does not report significant pain nor drainage associated with the bilateral diabetic foot ulcers since her last visit and she tolerated negative pressure wound therapy of the right lateral heel diabetic ulcer without difficulty. 07/30/17. Seen by Dr. Bush. The patient does not report significant pain nor drainage associated with the bilateral diabetic foot ulcers since her last visit and she tolerated negative pressure wound therapy of the right lateral heel diabetic ulcer without difficulty. 07/23/17. Seen by Dr. Bush. The patient does not report significant pain nor drainage associated with the bilateral diabetic foot ulcers since her last visit. Her MRI did not indicate osteo-myelitis of the right heel and she's been off of Zyvox that was treated in the recent MRSA infection for over a week. She has continued to apply topical gentamicin to the ulcers as recommended. Of note, her blood sugar is elevated again today at 227 which has been an ongoing issue since she's been attending our clinic. 07/16/17. Seen by Dr. Bush. The patient continues to report improvement in terms of pain and drainage associated with the chronic right and left foot diabetic ulcer since her last visit. She's completed a course of Zyvox that's been treating the recent MRSA positive wound culture of the right heel and does not report adverse side effects. She also has an MRI of the heel next week to evaluate for possible osteomyelitis. 07/13/17. Seen by Dr. Bush. The patient reports significant improvement in terms of her right heel pain since starting on Zyvox last week. She also feels in general the bilateral diabetic foot ulcers are draining less and improving. Her A1c was very high and her primary care provider increased her Lantus to 40 units twice daily. 07/09/17. Seen by Dr. Bush. The patient has not yet picked up her prescription for Zyvox which was approved yesterday to treat the right lateral heel MRSA positive wound culture. She does report increased pain or drainage associated with either the left or right foot diabetic ulcers and her blood sugars are just over 200 today which is an improvement. She is to follow-up with primary care provider today also noting her chronically elevated blood sugars and need for improving terms of her diabetes management in general. 07/06/17. Seen by Dr. Bush. The patient continues to report significant pain associated with bilateral right heel diabetic foot ulcer over the past week. Her wound culture grew a very resistant MRSA and she is not currently on systemic antibiotics. She does not report seeing any pain or drainage associated with the other right and left foot diabetic ulcers. As a side note, the patient states that her 10-year-old grandson is staying with her and has been helping with her insulin. 07/02/17. Seen by Dr. Bush. The patient's blood sugar 316 today and she still not checking them daily at home is recommended. She does not report significant pain or increased drainage associated with bilateral right and left foot diabetic ulcers since her last visit. 06/25/17. She will Dr. Bush. The patient continues on doxycycline for the MRSA positive culture taken from her right foot diabetic ulcer. She does not report increased drainage or pain associated with the bilateral diabetic foot ulcers and her x-ray of the right heel did not confirm osteomyelitis. Her blood sugars continue to be consistently around 250 and she is now checking them daily with the help of her caregiver. 06/18/16. Seen by JED Ruffin. The patient denies pain or increased drainage associated with bilateral diabetic foot ulcers. She was started on Doxycycline last week per MRSA culture. She takes her last dose today. Her blood sugar in clinic today was 255. She continues to be inconsistent with checking her blood sugars at home and continues to smoke despite being counseled on the associated negative effects on wound healing. 06/11/17. Seen by Dr. Bush. The patient does not report pain or increased drainage associated with bilateral diabetic foot ulcers. She has not picked up her antibiotic prescription to treat the recently cultured MRSA. Her blood sugar is 267 today following having a cookie for breakfast and she is also not checking her blood sugars routinely despite taking insulin. Of note, she has shown a pattern of noncompliance since establishing care at our clinic. She does not report fevers or feeling unwell in general. 06/04/17. Seen by Randell Turner PA-C. The patient reports no increase in drainage from her bilateral diabetic foot ulcers. Her CT Angiogram did not show hemodynamically significant stenosis or occlusions of her lower extremity arteries. She has not attempted to make an appointment to see her PCP regarding her persistent hyperglycemia. She continues smoking cigarettes and does not indicate a willingness to cut down or quit to help her ulcers heal. In addition, when a dog hair was pulled from her ulcer today she reported that I may have let my dog lay on my feet when I didn't have a bandage on. 05/28/17. Seen by Randell Turner PA-C. The patient reports stable drainage and pain from her diabetic foot ulcers. She initially refuses to have her blood sugar taken today citing having just eaten a box of candy. She has not attempted to make an appointment with her PCP to discuss her blood sugars. She continues on doxycycline for her ulcer infection and her CT angiogram to evaluate her PAD is scheduled for next week. In addition she continues smoking cigarettes. 05/18/17. Seen by Randell Turner PA-C. The patient reports decreased ulcer pain and stable drainage. Her blood sugars are reportedly over 200 and she has not made an appointment with her PCP to address this as instructed. 05/11/17. Seen by Randell Turner PA-C. The patient reports a decrease in ulcer pain from her bilateral lower extremity ulcers since taking her antibiotics. Her blood sugars continue to be over 150. 05/07/17. Seen by Randell Turner PA-C. The patient reports that her blood sugars have never ever been below 150 and that she has not yet begun taking the Doxycycline I have prescribed. She is willing to undergo debridement but is concerned about pain. Of note regarding pain, when I attempted to palpate her left pedal pulse, she stated that she experienced 7.5/10 pain from the light touch of palpating the dorsum of her foot. 04/29/17. Seen by Randell Turner PA-C. The patient reports increased pain from her ulcers, indicating that she will not be able to tolerate a debridement today of her ulcers. She is willing, however, to undergo a limited debridement to remove some devitalized tissue and obtain a tissue sample for bacterial culture. In addition, the patient notes new ulcers of her left leg and they have been rapidly increasing in size by her report. 04/23/17. Seen by Dr. Bush. The patient does not report significant pain or increased drainage associated with bilateral dorsal toe diabetic ulcers since her last visit. 04/16/17. Seen by Dr. Bush. The patient reports some new ulcers over the left toes and does not know how long they've been there but states they're somewhat painful. She does not report any increase in drainage or pain associated with chronic right first and second toe diabetic ulcers over the past week. She states she is not checking her blood sugars routinely because she is not able to use her glucometer and she has been decreasing her smoking substantially. She does not report fevers or feeling unwell or any other acute issues today. 04/09/17. Seen by Dr. Bush. The patient does not report significant pain nor increased drainage associated with the chronic right first and second toe diabetic ulcers since her last visit. Her arterial Doppler also did not confirm clinically significant PAD.She' s completed her course of oral antibiotics that was treated in the Enterobacter positive wound culture however continues to apply topical gentamicin dressing changes. Her blood sugars again are elevated today at 256. 04/01/17. Seen by Dr. Bush. The patient can to use reports some discomfort associated with the chronic right first and second toe diabetic ulcers. She was to have an arterial Doppler today to evaluate for PAD however was unable to make the appointment due to transportation issues. She continues on ciprofloxacin to treat the Enterobacter positive wound culture taken at the initial visit. Of note, her diabetes has been very poorly controlled and she continues to smoke cigarettes. Her blood sugar today is 354. 03/24/17. Seen by Dr. Bush. The patient continues to report pain associated with the chronic right first and second toe diabetic ulcers. She continues on ciprofloxacin for the recently cultured Enterobacter positive culture. She is a report of her side effects nor fevers or feeling unwell. Also, her blood sugars continue to be poorly controlled and are well over 300 today. 03/17/17. Seen by Dr. Bush. The patient is new to our clinic and presents with chronic right first and second toe diabetic ulcers. She states that they occurred spontaneously about 1 month ago and have been slowly progressing. She reports some modest pain and drainage however does not report fevers. Her diabetes is very poorly controlled with an A1c reportedly of 14 and she smokes half pack of cigarettes daily. Her primary care provider started her on Augmentin yesterday. Past Medical History This information was obtained from the patient Patient has a medical history of: Diabetes, type 2 Diabetic Neuropathy Urinary Incontinence Fibromylagia CVA Osteoarthritis Gastro Esoph. Reflux Disease (GERD) Sleep Apnea Hyperlipidemia Depression Complaints and Symptoms This information was obtained from the patient Patient complains of: General Notes: I have reviewed and concur with the Review of Systems and Past Family Social History documents completed by the clinician, I have reviewed and concur with the Wound Assessment document completed by the clinician Cardiovascular (Central): Dyspnea on Exertion Integumentary (Hair/Skin/Nails): Open Sore Musculoskeletal: Joint Swelling Prior Wound History: Drainage, Erythema, Pain Patient denies complaints or symptoms related to: Cardiovascular (Central): Irregular heart beat Cardiovascular (Central/Peripheral): Intermittent Claudication Constitutional Symptoms (General Health): Chills, Fever Ear/Nose/Mouth/Throat: Hearing Loss / Aid Gastrointestinal (GI): Nausea / Vomiting Hematologic/Lymphatic: Bleeding / Clotting Disorders, Bleeding Tendency Neurological: Loss of Protective Sensation Prior Wound History: Bleeding Psychiatric: Memory Loss Respiratory: Oxygen Use, Shortness of Breath Additional Information Does patient have a history of Cancer? Yes? Complete all questions.: No OBJECTIVE Constitutional BP elevated; Afebrile; Alert and in no distress. Well developed. Alert. Clean appearing.. Height/Length: 63 in (160.02 cm), Weight: 214.2 lbs (97.36 kgs), BMI: 37.9, Temperature: 98.0 ?F (36.67 ?C), Pulse: 100 bpm, Respiratory Rate: 18 breaths/min, Blood Pressure: 158/94 mmHg, Capillary Blood Glucose: 217 mg/dl, Pulse Oximetry: 96 %. Vital Signs Notes: Glucose per patient. Ears, Nose, Mouth, and Throat: No clinically significant hearing loss on informal examination. Respiratory: No respiratory distress. Even respirations and without use of accessory muscles.. Cardiovascular: 1+ pedal pulses bilaterally. 1+ bilateral lower leg edema. Integumentary (Hair, Skin) Mild periwound erythema without warmth. Refer to appropriate clinician wound documentation for this visit; right 2nd toe and heel ulcers extend to subcut with bases partially covered with pink granulation, remainder fibrin and slough; left foot ulcer extends to dermis. Severe bilateral gluteal erythematous rash covering approx 70% of gluteal areas. Wound #8 Right Heel is a chronic Aguilar Grade 2 Diabetic Ulcer and has received a status of Not Healed. Subsequent wound encounter measurements are 1cm length x 1cm width x 0.3cm depth, with an area of 1 sq cm and a volume of 0.3 cubic cm. No tunneling has been noted. No sinus tract has been noted. No undermining has been noted. There is a moderate amount of serosanguineous drainage noted which has no odor. The patient reports a wound pain of level 2/10. The wound margin is attached. Wound bed has Yes epithelialization, No eschar, Yes slough, Yes bright red, pink, spongy granulation. The periwound skin texture is normal. The periwound skin exhibited: Moist, Maceration, Cyanosis. The periwound skin did not exhibit: Dry/Scaly, Atrophie [place], Ecchymosis, Erythema, Hemosiderosis, Pallor, Rubor. The temperature of the periwound skin is Cool. Periwound skin does not exhibit signs or symptoms of infection. Local Pulse is Palpable. Wound #11 Right, Dorsal Second Toe is a chronic Aguilar Grade 1 Diabetic Ulcer and has received a status of Not Healed. Subsequent wound encounter measurements are 1.6cm length x 1.9cm width x 0.2cm depth, with an area of 3.04 sq cm and a volume of 0.608 cubic cm. Hypergranulation was noted. No tunneling has been noted. No sinus tract has been noted. No undermining has been noted. There is a moderate amount of serosanguineous drainage noted which has no odor. The patient reports a wound pain of level 0/10. The wound margin is attached. Wound bed has No epithelialization, No eschar, Yes slough, Yes bright red, spongy granulation. The periwound skin exhibited: Edema, Moist, Maceration, Cyanosis. The periwound skin did not exhibit: Brawny Induration, Excoriation, Induration, Callus, Crepitus, Fluctuance, Friable, Rash, Dry/Scaly, Atrophie [place], Ecchymosis, Erythema, Hemosiderosis, Pallor, Rubor. The temperature of the periwound skin is Cool. Periwound skin does not exhibit signs or symptoms of infection. Local Pulse is Doppler. Wound #12 Left, Dorsal Fourth Toe is a chronic Aguilar Grade 2 Diabetic Ulcer and has received a status of Not Healed. Subsequent wound encounter measurements are 0.3cm length x 0.2cm width with no measurable depth, with an area of 0.06 sq cm . No tunneling has been noted. No sinus tract has been noted. No undermining has been noted. There was no drainage noted. The patient reports a wound pain of level 0/10. The wound margin is irregular. Wound bed has Yes epithelialization, No eschar, Yes slough, No granulation. The periwound skin texture is normal. The periwound skin moisture is normal. The periwound skin exhibited: Cyanosis. The periwound skin did not exhibit: Atrophie [place], Ecchymosis, Erythema, Hemosiderosis, Pallor, Rubor. The temperature of the periwound skin is Cool. Periwound skin does not exhibit signs or symptoms of infection. Local Pulse is Doppler. General Notes: Covered in dried exudate, no visible wound base at this time. Neurological: Cranial nerves grossly intact with symmetric function normal by informal observation.. 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 A skin/subcutaneous tissue level surgical debridement with a total area debrided of 1 sq cm was performed by Raphael Bush MD. Subcutaneous was removed along with devitalized tissue: exudate, slough, and maceration. The following instrument(s) were used: curette. Pain control was achieved using 4% Lido. A time out was conducted prior to the start of the procedure. A minimal amount of bleeding was controlled with pressure. The procedure was tolerated well with a pain level of 0 throughout and a pain level of 0 following the procedure. Post Debridement Measurements: 1cm length x 1cm width x 0.4cm depth; with an area of 1 sq cm and a volume of 0.4 cubic cm; Wound #11 Wound #11 (Diabetic Ulcer) is located on the right, dorsal second toe. A skin/ subcutaneous tissue level surgical debridement with a total area debrided of 3.23 sq cm was performed by Raphael Bush MD. Subcutaneous was removed along with devitalized tissue: exudate, slough, and maceration. The following instrument(s) were used: curette. Pain control was achieved using 4% Lido. A time out was conducted prior to the start of the procedure. A minimal amount of bleeding was controlled with pressure. The procedure was tolerated well with a pain level of 0 throughout and a pain level of 0 following the procedure. Post Debridement Measurements: 1.7cm length x 1.9cm width x 0.2cm depth; with an area of 3.23 sq cm and a volume of 0.646 cubic cm; Wound #12 Wound #12 (Diabetic Ulcer) is located on the left, dorsal fourth toe. A selective debridement with a total area debrided of 0.06 sq cm was performed by Raphael Bush MD. to remove devitalized tissue: exudate and slough. The following instrument(s) were used: curette. Pain control was achieved using 4% Lido. A time out was conducted prior to the start of the procedure. No bleeding occurred. The procedure was tolerated well with a pain level of 0 throughout and a pain level of 0 following the procedure. Post Debridement Measurements: 0.3cm length x 0.2cm width x 0.1cm depth; with an area of 0.06 sq cm and a volume of 0.006 cubic cm; Additional Information Muscle fascia or bone removed and sent to pathology?: No Muscle fascia or bone removed and sent to pathology?: No PLAN Wound Orders: Wound #8 Right Heel Anesthetic Topical Xylocaine to wound bed. - In clinic. Cleanser Cleanse Wound: - Normal saline and gauze, use distilled water at home. May Shower. - Protect with shower boot/cast protector. Dressings Primary dressing: - Silver aquacel. Cover and secure with: - Foam and hypafix tape. Change Dressing: - Every other day. Wound #11 Right, Dorsal Second Toe Anesthetic Topical Xylocaine to wound bed. - In clinic. Cleanser Cleanse Wound: - Normal saline and gauze, use distilled water at home. May Shower. - Protect with shower boot/cast protector. Dressings Primary dressing: - Silver aquacel. Cover and secure with: - Foam and hypafix tape. Change Dressing: - Every other day. Wound #12 Left, Dorsal Fourth Toe Anesthetic Topical Xylocaine to wound bed. - In clinic. Cleanser Cleanse Wound: - Normal saline and gauze, use distilled water at home. May Shower. - Protect with shower boot/cast protector. Dressings Cover and secure with: - Foam and hypafix tape. Change Dressing: - Every other day. Additional Orders: Follow-Up Appointments Return Appointment: - - One week. Other information: If you develop fever, chills, increased pain, drainage, redness or swelling please call our office. If after hours, respond to the ER. Should you experience any significant changes in your wound(s) or have any questions regarding your home care instructions please contact the wound center @ [phone]. If after hours, contact your primary care physician or go to the hospital emergency room. Scribing Attestation I attest, as the nurse, that I scribed these orders for the physician. 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 Apply zinc based barrier cream to buttocks daily or more as needed. I've reviewed the clinician's documentation and agree with the evaluation and plan as written. In addition the patient's ulcers demonstrate evidence of non-viable devitalized tissue and they will continue to benefit from sharp debridement to help promote granulation and expedite healing. Also, the patient patient's been counseled regarding hygienic measures and her urinary incontinence which is contributing to the progress fungal rash over the gluteals. I've prescribed a short course of fluconazole and we'll review her interventional radiology referral. Electronic Signature(s) Signed By: Date: Raphael Bush MD 01/17/2018 13:28:46 Entered By: Raphael Bush on 01/17/2018 09:35:25
== END ==
PROVIDERS: Family Provider Family Medicine; PCP Family Medicine; Visit Provider Internal Medicine
DX: E11.621 Type 2 diabetes mellitus with foot ulcer (principal); L97.522 Non-pressure chronic ulcer of other part of left foot with fat layer exposed; L97.512 Non-pressure chronic ulcer of other part of right foot with fat layer exposed; E11.622 Type 2 diabetes mellitus with other skin ulcer; L97.412 Non-pressure chronic ulcer of right heel and midfoot with fat layer exposed; I70.238 Atherosclerosis of native arteries of right leg with ulceration of other part of lower leg
CPT/HCPCS: 11042; 97597

== ENCOUNTER → 2018-01-21 10:31 | Outpatient (CLI) | payer OTHER, MEDICAID, SELFPAY ==
--- NOTE | 2018-01-21 | OV.WND_ITS ---
Progress Note Details Patient Name: Ariana Causey Patient Number: [id number] PatientPatientDate: 01/21/2018 Clinician: Jacqueline Patel Clinician Cosigner: Romana Heath Physician / Residential Real Estate Sales Manager: Raphael Bush SUBJECTIVE Chief Complaint This information was obtained from the patient Diabetic ulcers on bilateral feet. Allergies Sulfa (Sulfonamide Antibiotics), Vicodin HPI This information was obtained from the patient 01/21/18. Seen by Dr. Bush. The patient does not report pain or significant drainage associated with the chronic right first and second toe and right heal diabetic ulcers since her last visit. She's scheduled for intervention for her right leg PAD with [facility] at the end of January and notes her inguinal and truncal fungal rash must be nearly resolved by then but has not improved while on oral fluconazole. 01/14/18. Seen by Dr. Bush. The patient does not report pain or significant drainage associated with the chronic right first and second toe and right heal diabetic ulcers since her last visit. She reports a painful, progressive rash over her gluteals for which she's applying topical nystatin and she states she's not yet been contacted regarding her referral to [facility] to address the right SFA stenosis which is likely delaying healing of the chronic right heel ulcer. 01/07/18. Seen by Dr. Bush. The patient does not report pain or significant drainage associated with the chronic right first and second toe and right heal diabetic ulcers since her last visit. Her MRA revealed a significant right SFA stenosis amenable to intervention along with some left leg PAD. She does not report rest pain necessarily but does have pain in her feet when lying in bed and is relatively limited in her mobility. 12/31/17. Seen by Dr. Bush. The patient does not report pain or significant drainage associated with the chronic right first and second toe and right heal diabetic ulcers since her last visit and she has her MRA of the right leg scheduled for later today to evaluate for clinically significant PAD as a complicating factor in the refractory nature of the right heel ulcer. 12/24/17. Seen by Dr. Bush. The patient does not report pain or significant drainage associated with the chronic right first and second toe and right heal diabetic ulcers since her last visit. Her wound culture taken at the last visit again grew MRSA plus a new Pantoea species. She's now on linezolid and does not report adverse side effects, fevers , or feeling unwell in general and states her blood sugars continue to improve with most in the low 200's. Her MRA of the right leg is scheduled for 01/03/18. 12/17/17. Seen by Dr. Bush. The patient does not report pain or significant drainage associated with the chronic right first and second toe and right heal diabetic ulcers since her last visit. She does report recurrence however of a left 4th toe diabetic ulcers along with drainage over the dorsum of the left 1st through 3rd toes at sites of previously healed diabetic ulcers. She's been treated recently for a resistant and recurrent MRSA infection of the right foot ulcers and is awaiting a right leg MRA to evaluate for clinically significant PAD as a source of the stalled healing of the right heel ulcer. Her blood sugars are improving however still tend to be above 200 on occasion. 12/10/17. Seen by Dr. Bush. The patient does not report pain or significant drainage associated with the chronic right first and second toe and right heal diabetic ulcers since her last visit. She's completed a course of linezollid that is treating the recent M RSA positive wound culture of the heel. She also has an MRA pending to reevaluate PAD of the leg. 12/03/17. Seen by Dr. Bush. The patient does not report pain or increased drainage associated with the right heel or right 1st and 2nd toe diabetic ulcers since her last visit and she'll complete her course of linezolid today that's been treating the MRSA positive culture. 11/26/17. Seen by Dr. Bush. The patient does not report pain or increased drainage associated with the right heel or right 2nd toe diabetic ulcers since her last visit and she's now on linezolid for the MRSA positive culture taken at her last visit. She does not report fevers, feeling unwell, or adverse side effects of the antibiotics and her NPWT was held at her last visit. 11/19/17. Seen by Dr. Bush. The patient does not report pain or increased drainage associated with the right heel diabetic ulcer since her last visit however there 's new drainage overlying the recently healed right 2nd toe diabetic ulcer. Her blood sugars are again over 300 today and she states she ate a lot of grapes yesterday. 11/05/17. Seen by Dr. Bush. The patient's completed her course of linezolid that was given to treat the recurrent MRSA positive culture taken from the right heel diabetic ulcer. She's tolerating NPWT without difficulty and although she's now received her glucometer and supplies she's still not checking her blood sugars as recommended. 10/29/17. Seen by Dr. Bush. The patient's started her course of linezolid that' s treating the recurrent MRSA culture from the chronic right heel diabetic ulcer. She reports less pain from the site and no increase in drainage or pain associated with the left 3rd and 4th toe nor right 2nd toe diabetic ulcer as well. 10/22/17. Seen by Dr. Bush. The patient continues to report some pain associated with the chronic right heel diabetic ulcer but none with the remaining right 2nd toe nor left 3rd and 4th toe diabetic ulcers. Her heel ulcer wound culture grew MRSA again and she's not currently on antibiotics. She's still not checking her blood sugars although is taking insulin and she has an appointment with her PCP to discuss getting another glucometer. 10/15/17. Seen by Dr. Bush. The patient continues to report some pain associated with the chronic right heel diabetic ulcer but none with the remaining right 2nd toe nor left 3rd and 4th toe diabetic ulcers. Of note, she restarted taking her insulin as prescribed with the assistance of her caregiver however they're not checking blood sugars when taking the insulin. 10/08/17. Seen by Dr. Bush. The patient continues on doxycycline for the recent MRSA and Strep positive wound culture although she should have completed this by now. She feels she may have missed a few doses and of note is also not checking her blood glucose at home. She does not report significant pain or drainage associated with the bilateral diabetic foot ulcers however and is tolerating NPWT treating the right heel ulcer without difficulty. He blood sugar is again elevated at 261 and she's to have an A1c repeated next week. 10/01/17. Seen by Dr. Bush. The patient's now on doxycycline again for MRSA and Streptococcus species cultured from the right 2nd toe diabetic ulcer although there's intermediate resistance noted on the culture sensitivies. She does not report increased pain or drainage from this site nor the right heel or left 2nd and 3rd toe diabetic foot ulcers and she's tolerating the antibiotic without reporting adverse side effects. 09/24/17. Seen by Randell Turner PA-C. The patient reports high blood sugars and increased drainage from her left foot diabetic ulcers. 09/17/17. Seen by Dr. Bush. The patient reports pain associated with the chronic left 3rd and 4th toe and right 2nd toe diabetic ulcers since her last visit and staff report significant maceration in these periulcer areas. Otherwise she'll complete her course of antibiotics that's treating the recent MRSA positive wound culture and is tolerating the wound vac overlying the right lateral heel diabetic ulcer. Her blood sugar is again over 300 today and she states she forgot to take her Lantus this morning. 09/10/17. Seen by Dr. Bush. The patient's now on doxycycline for the MRSA positive culture taken from the chronic right lateral heel diabetic ulcer last week. She does not report adverse side effects or other acute issues regarding the remaining left and right foot diabetic ulcers. Her blood sugars are again over 300 today which she attributes to eating strawberries this morning. 09/03/17. Seen by Dr. Bush. The patient reports some increased drainage associated with the bilateral diabetic foot ulcers since her last visit and she's still not checking blood sugars at home as recommended. Otherwise she's tolerating negative pressure wound therapy without difficulty and does not report any acute issues at this time. 08/27/17. Seen by Dr. Bush. The patient does not report significant pain nor drainage associated with the bilateral diabetic foot ulcers since her last visit and she tolerated negative pressure wound therapy of the right lateral heel diabetic ulcer without difficulty. 08/20/17. Seen by Dr. Bush. The patient does not report significant pain nor drainage associated with the bilateral diabetic foot ulcers since her last visit and she tolerated negative pressure wound therapy of the right lateral heel diabetic ulcer without difficulty. 08/13/17. Seen by Dr. Bush. The patient does not report significant pain nor drainage associated with the bilateral diabetic foot ulcers since her last visit and she tolerated negative pressure wound therapy of the right lateral heel diabetic ulcer without difficulty. Also, her blood sugars are improving although are still elevated at 204 today. 08/06/17. Seen by Dr. Bush. The patient does not report significant pain nor drainage associated with the bilateral diabetic foot ulcers since her last visit and she tolerated negative pressure wound therapy of the right lateral heel diabetic ulcer without difficulty. 07/30/17. Seen by Dr. Bush. The patient does not report significant pain nor drainage associated with the bilateral diabetic foot ulcers since her last visit and she tolerated negative pressure wound therapy of the right lateral heel diabetic ulcer without difficulty. 07/23/17. Seen by Dr. Bush. The patient does not report significant pain nor drainage associated with the bilateral diabetic foot ulcers since her last visit. Her MRI did not indicate osteo-myelitis of the right heel and she's been off of Zyvox that was treated in the recent MRSA infection for over a week. She has continued to apply topical gentamicin to the ulcers as recommended. Of note, her blood sugar is elevated again today at 227 which has been an ongoing issue since she's been attending our clinic. 07/16/17. Seen by Dr. Bush. The patient continues to report improvement in terms of pain and drainage associated with the chronic right and left foot diabetic ulcer since her last visit. She's completed a course of Zyvox that's been treating the recent MRSA positive wound culture of the right heel and does not report adverse side effects. She also has an MRI of the heel next week to evaluate for possible osteomyelitis. 07/13/17. Seen by Dr. Bush. The patient reports significant improvement in terms of her right heel pain since starting on Zyvox last week. She also feels in general the bilateral diabetic foot ulcers are draining less and improving. Her A1c was very high and her primary care provider increased her Lantus to 40 units twice daily. 07/09/17. Seen by Dr. Bush. The patient has not yet picked up her prescription for Zyvox which was approved yesterday to treat the right lateral heel MRSA positive wound culture. She does report increased pain or drainage associated with either the left or right foot diabetic ulcers and her blood sugars are just over 200 today which is an improvement. She is to follow-up with primary care provider today also noting her chronically elevated blood sugars and need for improving terms of her diabetes management in general. 07/06/17. Seen by Dr. Bush. The patient continues to report significant pain associated with bilateral right heel diabetic foot ulcer over the past week. Her wound culture grew a very resistant MRSA and she is not currently on systemic antibiotics. She does not report seeing any pain or drainage associated with the other right and left foot diabetic ulcers. As a side note, the patient states that her 10-year-old grandson is staying with her and has been helping with her insulin. 07/02/17. Seen by Dr. Bush. The patient's blood sugar 316 today and she still not checking them daily at home is recommended. She does not report significant pain or increased drainage associated with bilateral right and left foot diabetic ulcers since her last visit. 06/25/17. She will Dr. Bush. The patient continues on doxycycline for the MRSA positive culture taken from her right foot diabetic ulcer. She does not report increased drainage or pain associated with the bilateral diabetic foot ulcers and her x-ray of the right heel did not confirm osteomyelitis. Her blood sugars continue to be consistently around 250 and she is now checking them daily with the help of her caregiver. 06/18/16. Seen by JED Ruffin. The patient denies pain or increased drainage associated with bilateral diabetic foot ulcers. She was started on Doxycycline last week per MRSA culture. She takes her last dose today. Her blood sugar in clinic today was 255. She continues to be inconsistent with checking her blood sugars at home and continues to smoke despite being counseled on the associated negative effects on wound healing. 06/11/17. Seen by Dr. Bush. The patient does not report pain or increased drainage associated with bilateral diabetic foot ulcers. She has not picked up her antibiotic prescription to treat the recently cultured MRSA. Her blood sugar is 267 today following having a cookie for breakfast and she is also not checking her blood sugars routinely despite taking insulin. Of note, she has shown a pattern of noncompliance since establishing care at our clinic. She does not report fevers or feeling unwell in general. 06/04/17. Seen by Randell Turner PA-C. The patient reports no increase in drainage from her bilateral diabetic foot ulcers. Her CT Angiogram did not show hemodynamically significant stenosis or occlusions of her lower extremity arteries. She has not attempted to make an appointment to see her PCP regarding her persistent hyperglycemia. She continues smoking cigarettes and does not indicate a willingness to cut down or quit to help her ulcers heal. In addition, when a dog hair was pulled from her ulcer today she reported that I may have let my dog lay on my feet when I didn't have a bandage on. 05/28/17. Seen by Randell Turner PA-C. The patient reports stable drainage and pain from her diabetic foot ulcers. She initially refuses to have her blood sugar taken today citing having just eaten a box of candy. She has not attempted to make an appointment with her PCP to discuss her blood sugars. She continues on doxycycline for her ulcer infection and her CT angiogram to evaluate her PAD is scheduled for next week. In addition she continues smoking cigarettes. 05/18/17. Seen by Randell Turner PA-C. The patient reports decreased ulcer pain and stable drainage. Her blood sugars are reportedly over 200 and she has not made an appointment with her PCP to address this as instructed. 05/11/17. Seen by Randell Turner PA-C. The patient reports a decrease in ulcer pain from her bilateral lower extremity ulcers since taking her antibiotics. Her blood sugars continue to be over 150. 05/07/17. Seen by Randell Turner PA-C. The patient reports that her blood sugars have never ever been below 150 and that she has not yet begun taking the Doxycycline I have prescribed. She is willing to undergo debridement but is concerned about pain. Of note regarding pain, when I attempted to palpate her left pedal pulse, she stated that she experienced 7.5/10 pain from the light touch of palpating the dorsum of her foot. 04/29/17. Seen by Randell Turner PA-C. The patient reports increased pain from her ulcers, indicating that she will not be able to tolerate a debridement today of her ulcers. She is willing, however, to undergo a limited debridement to remove some devitalized tissue and obtain a tissue sample for bacterial culture. In addition, the patient notes new ulcers of her left leg and they have been rapidly increasing in size by her report. 04/23/17. Seen by Dr. Bush. The patient does not report significant pain or increased drainage associated with bilateral dorsal toe diabetic ulcers since her last visit. 04/16/17. Seen by Dr. Bush. The patient reports some new ulcers over the left toes and does not know how long they've been there but states they're somewhat painful. She does not report any increase in drainage or pain associated with chronic right first and second toe diabetic ulcers over the past week. She states she is not checking her blood sugars routinely because she is not able to use her glucometer and she has been decreasing her smoking substantially. She does not report fevers or feeling unwell or any other acute issues today. 04/09/17. Seen by Dr. Bush. The patient does not report significant pain nor increased drainage associated with the chronic right first and second toe diabetic ulcers since her last visit. Her arterial Doppler also did not confirm clinically significant PAD.She' s completed her course of oral antibiotics that was treated in the Enterobacter positive wound culture however continues to apply topical gentamicin dressing changes. Her blood sugars again are elevated today at 256. 04/01/17. Seen by Dr. Bush. The patient can to use reports some discomfort associated with the chronic right first and second toe diabetic ulcers. She was to have an arterial Doppler today to evaluate for PAD however was unable to make the appointment due to transportation issues. She continues on ciprofloxacin to treat the Enterobacter positive wound culture taken at the initial visit. Of note, her diabetes has been very poorly controlled and she continues to smoke cigarettes. Her blood sugar today is 354. 03/24/17. Seen by Dr. Bush. The patient continues to report pain associated with the chronic right first and second toe diabetic ulcers. She continues on ciprofloxacin for the recently cultured Enterobacter positive culture. She is a report of her side effects nor fevers or feeling unwell. Also, her blood sugars continue to be poorly controlled and are well over 300 today. 03/17/17. Seen by Dr. Bush. The patient is new to our clinic and presents with chronic right first and second toe diabetic ulcers. She states that they occurred spontaneously about 1 month ago and have been slowly progressing. She reports some modest pain and drainage however does not report fevers. Her diabetes is very poorly controlled with an A1c reportedly of 14 and she smokes half pack of cigarettes daily. Her primary care provider started her on Augmentin yesterday. Past Medical History This information was obtained from the patient Patient has a medical history of: Diabetes, type 2 Diabetic Neuropathy Urinary Incontinence Fibromylagia CVA Osteoarthritis Gastro Esoph. Reflux Disease (GERD) Sleep Apnea Hyperlipidemia Depression Complaints and Symptoms This information was obtained from the patient Patient complains of: General Notes: I have reviewed and concur with the Review of Systems and Past Family Social History documents completed by the clinician, I have reviewed and concur with the Wound Assessment document completed by the clinician Cardiovascular (Central): Dyspnea on Exertion Integumentary (Hair/Skin/Nails): Open Sore Musculoskeletal: Joint Swelling Prior Wound History: Drainage, Erythema, Pain Patient denies complaints or symptoms related to: Cardiovascular (Central): Irregular heart beat Cardiovascular (Central/Peripheral): Intermittent Claudication Constitutional Symptoms (General Health): Chills, Fever Ear/Nose/Mouth/Throat: Hearing Loss / Aid Gastrointestinal (GI): Nausea / Vomiting Hematologic/Lymphatic: Bleeding / Clotting Disorders, Bleeding Tendency Neurological: Loss of Protective Sensation Prior Wound History: Bleeding Psychiatric: Memory Loss Respiratory: Oxygen Use, Shortness of Breath Additional Information Does patient have a history of Cancer? Yes? Complete all questions.: No OBJECTIVE Constitutional BP elevated; Afebrile; Alert and in no distress. Well developed. Alert. Clean appearing.. Height/Length: 63 in (160.02 cm), Weight: 214.2 lbs (97.36 kgs), BMI: 37.9, Temperature: 97.7 ?F (36.5 ?C), Pulse: 99 bpm, Respiratory Rate: 20 breaths/min, Blood Pressure: 143/85 mmHg, Capillary Blood Glucose: 177 mg/dl, Pulse Oximetry: 97 %. Vital Signs Notes: Glucose per patient. Ears, Nose, Mouth, and Throat: No clinically significant hearing loss on informal examination. Respiratory: No respiratory distress. Even respirations and without use of accessory muscles.. Cardiovascular: monophasic pedal pulses bilaterally. 1+ bilateral lower leg edema. Gastrointestinal (GI): Obese. Nondistended.. Integumentary (Hair, Skin) No periwound erythema, warmth, or significant drainage. No periwound rashes appreciated or noted otherwise.. Refer to appropriate clinician wound documentation for this visit; right foot ulcer extends to subcut with base partially covered with pink granulation, remainder fibrin and slough. Maceration present in the periwound areas. Wound #8 Right Heel is a chronic Aguilar Grade 2 Diabetic Ulcer and has received a status of Not Healed. Subsequent wound encounter measurements are 1cm length x 0.8cm width x 0.3cm depth, with an area of 0.8 sq cm and a volume of 0.24 cubic cm. No tunneling has been noted. No sinus tract has been noted. No undermining has been noted. There is a moderate amount of serosanguineous drainage noted which has no odor. The patient reports a wound pain of level 2/10. The wound margin is attached. Wound bed has Yes epithelialization, No eschar, Yes slough, Yes bright red, pink, spongy granulation. The periwound skin texture is normal. The periwound skin exhibited: Moist, Maceration, Cyanosis. The periwound skin did not exhibit: Dry/Scaly, Atrophie Wink, Ecchymosis, Erythema, Hemosiderosis, Pallor, Rubor. The temperature of the periwound skin is Cool. Periwound skin does not exhibit signs or symptoms of infection. Local Pulse is Palpable. Wound #11 Right, Dorsal Second Toe is a chronic Aguilar Grade 1 Diabetic Ulcer and has received a status of Not Healed. Subsequent wound encounter measurements are 1.4cm length x 1.5cm width x 0.1cm depth, with an area of 2.1 sq cm and a volume of 0.21 cubic cm. Hypergranulation was noted. No tunneling has been noted. No sinus tract has been noted. No undermining has been noted. There is a moderate amount of serosanguineous drainage noted which has no odor. The patient reports a wound pain of level 0/10. The wound margin is attached. Wound bed has Yes epithelialization, No eschar, Yes slough, Yes bright red, firm granulation. The periwound skin exhibited: Edema, Moist, Maceration, Cyanosis. The periwound skin did not exhibit: Brawny Induration, Excoriation, Induration, Callus, Crepitus, Fluctuance, Friable, Rash, Dry/Scaly, Atrophie Wink, Ecchymosis, Erythema, Hemosiderosis, Pallor, Rubor. The temperature of the periwound skin is Cool. Periwound skin does not exhibit signs or symptoms of infection. Local Pulse is Doppler. Wound #12 Left, Dorsal Fourth Toe is a chronic Aguilar Grade 2 Diabetic Ulcer and has received an outcome of Healed - no new wound(s). Subsequent wound encounter measurements are 0cm length x 0cm width with no measurable depth, with an area of 0 sq cm . No tunneling has been noted. No sinus tract has been noted. No undermining has been noted. There was no drainage noted. The patient reports a wound pain of level 0/ 10. The wound margin is irregular. Wound bed has Yes epithelialization, No eschar, No slough, No granulation. The periwound skin texture is normal. The periwound skin moisture is normal. The periwound skin exhibited: Cyanosis. The periwound skin did not exhibit: Atrophie Kasandra, Ecchymosis, Erythema, Hemosiderosis, Pallor, Rubor. The temperature of the periwound skin is Cool. Periwound skin does not exhibit signs or symptoms of infection. Local Pulse is Doppler. Neurological: Cranial nerves grossly intact with symmetric function normal by informal observation.. 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 A skin/subcutaneous tissue level surgical debridement with a total area debrided of 0.8 sq cm was performed by Raphael Bush MD. Subcutaneous was removed along with devitalized tissue: exudate and slough. The following instrument(s) were used: curette. Pain control was achieved using 4% Lido. A time out was conducted prior to the start of the procedure. A minimal amount of bleeding was controlled with pressure. The procedure was tolerated well with a pain level of 0 throughout and a loss of sensation following the procedure. Post Debridement Measurements: 1cm length x 0.8cm width x 0.3cm depth; with an area of 0.8 sq cm and a volume of 0.24 cubic cm; Wound #11 Wound #11 (Diabetic Ulcer) is located on the right, dorsal second toe. A skin/ subcutaneous tissue level surgical debridement with a total area debrided of 2.1 sq cm was performed by Raphael Bush MD. Subcutaneous was removed along with devitalized tissue: exudate and slough. The following instrument(s) were used: curette. Pain control was achieved using 4% Lido. A time out was not conducted prior to the start of the procedure. A minimal amount of bleeding was controlled with pressure. The procedure was tolerated well with a pain level of 0 throughout and a pain level of 0 following the procedure. Post Debridement Measurements: 1.4cm length x 1.5cm width x 0.2cm depth; with an area of 2.1 sq cm and a volume of 0.42 cubic cm; Additional Information Muscle fascia or bone removed and sent to pathology?: No Muscle fascia or bone removed and sent to pathology?: No PLAN Wound Orders: Wound #8 Right Heel Anesthetic Topical Xylocaine to wound bed. - In clinic. Cleanser Cleanse Wound: - Normal saline and gauze, use distilled water at home. May Shower. - Protect with shower boot/cast protector. Dressings Cover and secure with: - Foam and hypafix tape. Change Dressing: - Every other day. Wound #11 Right, Dorsal Second Toe Anesthetic Topical Xylocaine to wound bed. - In clinic. Cleanser Cleanse Wound: - Normal saline and gauze, use distilled water at home. May Shower. - Protect with shower boot/cast protector. Dressings Cover and secure with: - Foam and hypafix tape. Change Dressing: - Every other day. Additional Orders: Follow-Up Appointments Return Appointment: - - One week. Other information: If you develop fever, chills, increased pain, drainage, redness or swelling please call our office. If after hours, respond to the ER. Should you experience any significant changes in your wound(s) or have any questions regarding your home care instructions please contact the wound center @ [phone]. If after hours, contact your primary care physician or go to the hospital emergency room. Scribing Attestation I attest, as the nurse, that I scribed these orders for the physician. I've reviewed the clinician's documentation and agree with the evaluation and plan as written. In addition the patient's ulcers demonstrate evidence of non-viable devitalized tissue and they will continue to benefit from sharp debridement to help promote granulation and expedite healing. Also, the patient will follow up with her PCP today regarding her chronic rash and she's been advised of the role elevated blood sugars play in promoting fungal skin rashes. Electronic Signature(s) Signed By: Date: Raphael Bush MD 01/25/2018 06:47:29 Entered By: Raphael Bush on 01/25/2018 06:41:16
== END ==
PROVIDERS: Family Provider Family Medicine; PCP Family Medicine; Visit Provider Internal Medicine
DX: E11.621 Type 2 diabetes mellitus with foot ulcer (principal); E11.40 Type 2 diabetes mellitus with diabetic neuropathy, unspecified; L97.512 Non-pressure chronic ulcer of other part of right foot with fat layer exposed; E11.622 Type 2 diabetes mellitus with other skin ulcer; L97.412 Non-pressure chronic ulcer of right heel and midfoot with fat layer exposed; I70.238 Atherosclerosis of native arteries of right leg with ulceration of other part of lower leg; R21 Rash and other nonspecific skin eruption
CPT/HCPCS: 11042

== ENCOUNTER → 2018-01-28 09:39 | Outpatient (CLI) | payer OTHER, MEDICAID, SELFPAY ==
--- NOTE | 2018-01-28 | OV.WND_ITS ---
Progress Note Details Patient Name: Ariana Causey Patient Number: [id number] PatientPatientDate: 01/28/2018 Clinician: Jacqueline Patel Clinician Cosigner: Romana Heath Physician / Surgical Services Tech: Raphael Bush SUBJECTIVE Chief Complaint This information was obtained from the patient Diabetic ulcers on right foot. Allergies Sulfa (Sulfonamide Antibiotics), Vicodin HPI This information was obtained from the patient 01/28/18. Seen by Dr. Bush. The patient does not report pain or significant drainage associated with the chronic right first and second toe and right heal diabetic ulcers since her last visit. She's scheduled for intervention for her right leg PAD with [facility] on Wednesday and notes her inguinal and truncal fungal rash are improving since starting on terbenafine last week. 01/21/18. Seen by Dr. Bush. The patient does not report pain or significant drainage associated with the chronic right first and second toe and right heal diabetic ulcers since her last visit. She's scheduled for intervention for her right leg PAD with [facility] at the end of January and notes her inguinal and truncal fungal rash must be nearly resolved by then but has not improved while on oral fluconazole. 01/14/18. Seen by Dr. Bush. The patient does not report pain or significant drainage associated with the chronic right first and second toe and right heal diabetic ulcers since her last visit. She reports a painful, progressive rash over her gluteals for which she's applying topical nystatin and she states she's not yet been contacted regarding her referral to [facility] to address the right SFA stenosis which is likely delaying healing of the chronic right heel ulcer. 01/07/18. Seen by Dr. Bush. The patient does not report pain or significant drainage associated with the chronic right first and second toe and right heal diabetic ulcers since her last visit. Her MRA revealed a significant right SFA stenosis amenable to intervention along with some left leg PAD. She does not report rest pain necessarily but does have pain in her feet when lying in bed and is relatively limited in her mobility. 12/31/17. Seen by Dr. Bush. The patient does not report pain or significant drainage associated with the chronic right first and second toe and right heal diabetic ulcers since her last visit and she has her MRA of the right leg scheduled for later today to evaluate for clinically significant PAD as a complicating factor in the refractory nature of the right heel ulcer. 12/24/17. Seen by Dr. Bush. The patient does not report pain or significant drainage associated with the chronic right first and second toe and right heal diabetic ulcers since her last visit. Her wound culture taken at the last visit again grew MRSA plus a new Pantoea species. She's now on linezolid and does not report adverse side effects, fevers , or feeling unwell in general and states her blood sugars continue to improve with most in the low 200's. Her MRA of the right leg is scheduled for 01/03/18. 12/17/17. Seen by Dr. Bush. The patient does not report pain or significant drainage associated with the chronic right first and second toe and right heal diabetic ulcers since her last visit. She does report recurrence however of a left 4th toe diabetic ulcers along with drainage over the dorsum of the left 1st through 3rd toes at sites of previously healed diabetic ulcers. She's been treated recently for a resistant and recurrent MRSA infection of the right foot ulcers and is awaiting a right leg MRA to evaluate for clinically significant PAD as a source of the stalled healing of the right heel ulcer. Her blood sugars are improving however still tend to be above 200 on occasion. 12/10/17. Seen by Dr. Bush. The patient does not report pain or significant drainage associated with the chronic right first and second toe and right heal diabetic ulcers since her last visit. She's completed a course of linezollid that is treating the recent M RSA positive wound culture of the heel. She also has an MRA pending to reevaluate PAD of the leg. 12/03/17. Seen by Dr. Bush. The patient does not report pain or increased drainage associated with the right heel or right 1st and 2nd toe diabetic ulcers since her last visit and she'll complete her course of linezolid today that's been treating the MRSA positive culture. 11/26/17. Seen by Dr. Bush. The patient does not report pain or increased drainage associated with the right heel or right 2nd toe diabetic ulcers since her last visit and she's now on linezolid for the MRSA positive culture taken at her last visit. She does not report fevers, feeling unwell, or adverse side effects of the antibiotics and her NPWT was held at her last visit. 11/19/17. Seen by Dr. Bush. The patient does not report pain or increased drainage associated with the right heel diabetic ulcer since her last visit however there 's new drainage overlying the recently healed right 2nd toe diabetic ulcer. Her blood sugars are again over 300 today and she states she ate a lot of grapes yesterday. 11/05/17. Seen by Dr. Bush. The patient's completed her course of linezolid that was given to treat the recurrent MRSA positive culture taken from the right heel diabetic ulcer. She's tolerating NPWT without difficulty and although she's now received her glucometer and supplies she's still not checking her blood sugars as recommended. 10/29/17. Seen by Dr. Bush. The patient's started her course of linezolid that' s treating the recurrent MRSA culture from the chronic right heel diabetic ulcer. She reports less pain from the site and no increase in drainage or pain associated with the left 3rd and 4th toe nor right 2nd toe diabetic ulcer as well. 10/22/17. Seen by Dr. Bush. The patient continues to report some pain associated with the chronic right heel diabetic ulcer but none with the remaining right 2nd toe nor left 3rd and 4th toe diabetic ulcers. Her heel ulcer wound culture grew MRSA again and she's not currently on antibiotics. She's still not checking her blood sugars although is taking insulin and she has an appointment with her PCP to discuss getting another glucometer. 10/15/17. Seen by Dr. Bush. The patient continues to report some pain associated with the chronic right heel diabetic ulcer but none with the remaining right 2nd toe nor left 3rd and 4th toe diabetic ulcers. Of note, she restarted taking her insulin as prescribed with the assistance of her caregiver however they're not checking blood sugars when taking the insulin. 10/08/17. Seen by Dr. Bush. The patient continues on doxycycline for the recent MRSA and Strep positive wound culture although she should have completed this by now. She feels she may have missed a few doses and of note is also not checking her blood glucose at home. She does not report significant pain or drainage associated with the bilateral diabetic foot ulcers however and is tolerating NPWT treating the right heel ulcer without difficulty. He blood sugar is again elevated at 261 and she's to have an A1c repeated next week. 10/01/17. Seen by Dr. Bush. The patient's now on doxycycline again for MRSA and Streptococcus species cultured from the right 2nd toe diabetic ulcer although there's intermediate resistance noted on the culture sensitivies. She does not report increased pain or drainage from this site nor the right heel or left 2nd and 3rd toe diabetic foot ulcers and she's tolerating the antibiotic without reporting adverse side effects. 09/24/17. Seen by Randell Turner PA-C. The patient reports high blood sugars and increased drainage from her left foot diabetic ulcers. 09/17/17. Seen by Dr. Bush. The patient reports pain associated with the chronic left 3rd and 4th toe and right 2nd toe diabetic ulcers since her last visit and staff report significant maceration in these periulcer areas. Otherwise she'll complete her course of antibiotics that's treating the recent MRSA positive wound culture and is tolerating the wound vac overlying the right lateral heel diabetic ulcer. Her blood sugar is again over 300 today and she states she forgot to take her Lantus this morning. 09/10/17. Seen by Dr. Bush. The patient's now on doxycycline for the MRSA positive culture taken from the chronic right lateral heel diabetic ulcer last week. She does not report adverse side effects or other acute issues regarding the remaining left and right foot diabetic ulcers. Her blood sugars are again over 300 today which she attributes to eating strawberries this morning. 09/03/17. Seen by Dr. Bush. The patient reports some increased drainage associated with the bilateral diabetic foot ulcers since her last visit and she's still not checking blood sugars at home as recommended. Otherwise she's tolerating negative pressure wound therapy without difficulty and does not report any acute issues at this time. 08/27/17. Seen by Dr. Bush. The patient does not report significant pain nor drainage associated with the bilateral diabetic foot ulcers since her last visit and she tolerated negative pressure wound therapy of the right lateral heel diabetic ulcer without difficulty. 08/20/17. Seen by Dr. Bush. The patient does not report significant pain nor drainage associated with the bilateral diabetic foot ulcers since her last visit and she tolerated negative pressure wound therapy of the right lateral heel diabetic ulcer without difficulty. 08/13/17. Seen by Dr. Bush. The patient does not report significant pain nor drainage associated with the bilateral diabetic foot ulcers since her last visit and she tolerated negative pressure wound therapy of the right lateral heel diabetic ulcer without difficulty. Also, her blood sugars are improving although are still elevated at 204 today. 08/06/17. Seen by Dr. Bush. The patient does not report significant pain nor drainage associated with the bilateral diabetic foot ulcers since her last visit and she tolerated negative pressure wound therapy of the right lateral heel diabetic ulcer without difficulty. 07/30/17. Seen by Dr. Bush. The patient does not report significant pain nor drainage associated with the bilateral diabetic foot ulcers since her last visit and she tolerated negative pressure wound therapy of the right lateral heel diabetic ulcer without difficulty. 07/23/17. Seen by Dr. Bush. The patient does not report significant pain nor drainage associated with the bilateral diabetic foot ulcers since her last visit. Her MRI did not indicate osteo-myelitis of the right heel and she's been off of Zyvox that was treated in the recent MRSA infection for over a week. She has continued to apply topical gentamicin to the ulcers as recommended. Of note, her blood sugar is elevated again today at 227 which has been an ongoing issue since she's been attending our clinic. 07/16/17. Seen by Dr. Bush. The patient continues to report improvement in terms of pain and drainage associated with the chronic right and left foot diabetic ulcer since her last visit. She's completed a course of Zyvox that's been treating the recent MRSA positive wound culture of the right heel and does not report adverse side effects. She also has an MRI of the heel next week to evaluate for possible osteomyelitis. 07/13/17. Seen by Dr. Bush. The patient reports significant improvement in terms of her right heel pain since starting on Zyvox last week. She also feels in general the bilateral diabetic foot ulcers are draining less and improving. Her A1c was very high and her primary care provider increased her Lantus to 40 units twice daily. 07/09/17. Seen by Dr. Bush. The patient has not yet picked up her prescription for Zyvox which was approved yesterday to treat the right lateral heel MRSA positive wound culture. She does report increased pain or drainage associated with either the left or right foot diabetic ulcers and her blood sugars are just over 200 today which is an improvement. She is to follow-up with primary care provider today also noting her chronically elevated blood sugars and need for improving terms of her diabetes management in general. 07/06/17. Seen by Dr. Bush. The patient continues to report significant pain associated with bilateral right heel diabetic foot ulcer over the past week. Her wound culture grew a very resistant MRSA and she is not currently on systemic antibiotics. She does not report seeing any pain or drainage associated with the other right and left foot diabetic ulcers. As a side note, the patient states that her 10-year-old grandson is staying with her and has been helping with her insulin. 07/02/17. Seen by Dr. Bush. The patient's blood sugar 316 today and she still not checking them daily at home is recommended. She does not report significant pain or increased drainage associated with bilateral right and left foot diabetic ulcers since her last visit. 06/25/17. She will Dr. Bush. The patient continues on doxycycline for the MRSA positive culture taken from her right foot diabetic ulcer. She does not report increased drainage or pain associated with the bilateral diabetic foot ulcers and her x-ray of the right heel did not confirm osteomyelitis. Her blood sugars continue to be consistently around 250 and she is now checking them daily with the help of her caregiver. 06/18/16. Seen by JED Ruffin. The patient denies pain or increased drainage associated with bilateral diabetic foot ulcers. She was started on Doxycycline last week per MRSA culture. She takes her last dose today. Her blood sugar in clinic today was 255. She continues to be inconsistent with checking her blood sugars at home and continues to smoke despite being counseled on the associated negative effects on wound healing. 06/11/17. Seen by Dr. Bush. The patient does not report pain or increased drainage associated with bilateral diabetic foot ulcers. She has not picked up her antibiotic prescription to treat the recently cultured MRSA. Her blood sugar is 267 today following having a cookie for breakfast and she is also not checking her blood sugars routinely despite taking insulin. Of note, she has shown a pattern of noncompliance since establishing care at our clinic. She does not report fevers or feeling unwell in general. 06/04/17. Seen by Randell Turner PA-C. The patient reports no increase in drainage from her bilateral diabetic foot ulcers. Her CT Angiogram did not show hemodynamically significant stenosis or occlusions of her lower extremity arteries. She has not attempted to make an appointment to see her PCP regarding her persistent hyperglycemia. She continues smoking cigarettes and does not indicate a willingness to cut down or quit to help her ulcers heal. In addition, when a dog hair was pulled from her ulcer today she reported that I may have let my dog lay on my feet when I didn't have a bandage on. 05/28/17. Seen by Randell Turner PA-C. The patient reports stable drainage and pain from her diabetic foot ulcers. She initially refuses to have her blood sugar taken today citing having just eaten a box of candy. She has not attempted to make an appointment with her PCP to discuss her blood sugars. She continues on doxycycline for her ulcer infection and her CT angiogram to evaluate her PAD is scheduled for next week. In addition she continues smoking cigarettes. 05/18/17. Seen by Randell Turner PA-C. The patient reports decreased ulcer pain and stable drainage. Her blood sugars are reportedly over 200 and she has not made an appointment with her PCP to address this as instructed. 05/11/17. Seen by Randell Turner PA-C. The patient reports a decrease in ulcer pain from her bilateral lower extremity ulcers since taking her antibiotics. Her blood sugars continue to be over 150. 05/07/17. Seen by Randell Turner PA-C. The patient reports that her blood sugars have never ever been below 150 and that she has not yet begun taking the Doxycycline I have prescribed. She is willing to undergo debridement but is concerned about pain. Of note regarding pain, when I attempted to palpate her left pedal pulse, she stated that she experienced 7.5/10 pain from the light touch of palpating the dorsum of her foot. 04/29/17. Seen by Randell Turner PA-C. The patient reports increased pain from her ulcers, indicating that she will not be able to tolerate a debridement today of her ulcers. She is willing, however, to undergo a limited debridement to remove some devitalized tissue and obtain a tissue sample for bacterial culture. In addition, the patient notes new ulcers of her left leg and they have been rapidly increasing in size by her report. 04/23/17. Seen by Dr. Bush. The patient does not report significant pain or increased drainage associated with bilateral dorsal toe diabetic ulcers since her last visit. 04/16/17. Seen by Dr. Bush. The patient reports some new ulcers over the left toes and does not know how long they've been there but states they're somewhat painful. She does not report any increase in drainage or pain associated with chronic right first and second toe diabetic ulcers over the past week. She states she is not checking her blood sugars routinely because she is not able to use her glucometer and she has been decreasing her smoking substantially. She does not report fevers or feeling unwell or any other acute issues today. 04/09/17. Seen by Dr. Bush. The patient does not report significant pain nor increased drainage associated with the chronic right first and second toe diabetic ulcers since her last visit. Her arterial Doppler also did not confirm clinically significant PAD.She' s completed her course of oral antibiotics that was treated in the Enterobacter positive wound culture however continues to apply topical gentamicin dressing changes. Her blood sugars again are elevated today at 256. 04/01/17. Seen by Dr. Bush. The patient can to use reports some discomfort associated with the chronic right first and second toe diabetic ulcers. She was to have an arterial Doppler today to evaluate for PAD however was unable to make the appointment due to transportation issues. She continues on ciprofloxacin to treat the Enterobacter positive wound culture taken at the initial visit. Of note, her diabetes has been very poorly controlled and she continues to smoke cigarettes. Her blood sugar today is 354. 03/24/17. Seen by Dr. uBsh. The patient continues to report pain associated with the chronic right first and second toe diabetic ulcers. She continues on ciprofloxacin for the recently cultured Enterobacter positive culture. She is a report of her side effects nor fevers or feeling unwell. Also, her blood sugars continue to be poorly controlled and are well over 300 today. 03/17/17. Seen by Dr. Bush. The patient is new to our clinic and presents with chronic right first and second toe diabetic ulcers. She states that they occurred spontaneously about 1 month ago and have been slowly progressing. She reports some modest pain and drainage however does not report fevers. Her diabetes is very poorly controlled with an A1c reportedly of 14 and she smokes half pack of cigarettes daily. Her primary care provider started her on Augmentin yesterday. Past Medical History This information was obtained from the patient Patient has a medical history of: Diabetes, type 2 Diabetic Neuropathy Urinary Incontinence Fibromylagia CVA Osteoarthritis Gastro Esoph. Reflux Disease (GERD) Sleep Apnea Hyperlipidemia Depression Complaints and Symptoms This information was obtained from the patient Patient complains of: General Notes: I have reviewed and concur with the Review of Systems and Past Family Social History documents completed by the clinician, I have reviewed and concur with the Wound Assessment document completed by the clinician Cardiovascular (Central): Dyspnea on Exertion Integumentary (Hair/Skin/Nails): Open Sore Musculoskeletal: Joint Swelling Prior Wound History: Drainage, Erythema, Pain Patient denies complaints or symptoms related to: Cardiovascular (Central): Irregular heart beat Cardiovascular (Central/Peripheral): Intermittent Claudication Constitutional Symptoms (General Health): Chills, Fever Ear/Nose/Mouth/Throat: Hearing Loss / Aid Gastrointestinal (GI): Nausea / Vomiting Hematologic/Lymphatic: Bleeding / Clotting Disorders, Bleeding Tendency Neurological: Loss of Protective Sensation Prior Wound History: Bleeding Psychiatric: Memory Loss Respiratory: Oxygen Use, Shortness of Breath Additional Information Does patient have a history of Cancer? Yes? Complete all questions.: No OBJECTIVE Constitutional BP elevated; Afebrile; Alert and in no distress. Well developed. Alert. Clean appearing.. Height/Length: 63 in (160.02 cm), Weight: 214.2 lbs (97.36 kgs), BMI: 37.9, Temperature: 98.3 ?F (36.83 ?C), Pulse: 97 bpm, Respiratory Rate: 20 breaths/min, Blood Pressure: 160/91 mmHg, Capillary Blood Glucose: 230 mg/dl, Pulse Oximetry: 96 %. Vital Signs Notes: Glucose per patient. Cardiovascular: monophasic pedal pulses on the right. 1+ right lower extremity edema. Gastrointestinal (GI): Obese. Nondistended.. Integumentary (Hair, Skin) Mild periwound erythema without warmth. Refer to appropriate clinician wound documentation for this visit; right 2nd toe and lateral heel ulcers extend to subcut with bases partially covered with pink granulation, remainder fibrin and slough. Maceration present in the periwound areas. Wound #8 Right Heel is a chronic Agu[place] Grade 2 Diabetic Ulcer and has received a status of Not Healed. Subsequent wound encounter measurements are 1.1cm length x 1cm width x 0.2cm depth, with an area of 1.1 sq cm and a volume of 0.22 cubic cm. No tunneling has been noted. No sinus tract has been noted. No undermining has been noted. There is a small amount of serosanguineous drainage noted which has no odor. The patient reports a wound pain of level 2/10. The wound margin is attached. Wound bed has Yes epithelialization, No eschar, Yes slough, Yes bright red, pink, spongy granulation. The periwound skin texture is normal. The periwound skin exhibited: Moist, Maceration, Cyanosis. The periwound skin did not exhibit: Dry/Scaly, Atrophie [place], Ecchymosis, Erythema, Hemosiderosis, Pallor, Rubor. The temperature of the periwound skin is Cool. Periwound skin does not exhibit signs or symptoms of infection. Local Pulse is Palpable. Wound #11 Right, Dorsal Second Toe is a chronic Aguilar Grade 1 Diabetic Ulcer and has received a status of Not Healed. Subsequent wound encounter measurements are 1.6cm length x 2cm width x 0.1cm depth, with an area of 3.2 sq cm and a volume of 0.32 cubic cm. Hypergranulation was noted. No tunneling has been noted. No sinus tract has been noted. No undermining has been noted. There is a moderate amount of serosanguineous drainage noted which has no odor. The patient reports a wound pain of level 0/10. The wound margin is attached. Wound bed has Yes epithelialization, No eschar, Yes slough, Yes bright red, firm granulation. The periwound skin exhibited: Edema, Moist, Maceration, Cyanosis. The periwound skin did not exhibit: Brawny Induration, Excoriation, Induration, Callus, Crepitus, Fluctuance, Friable, Rash, Dry/Scaly, Atrophie [place], Ecchymosis, Erythema, Hemosiderosis, Pallor, Rubor. The temperature of the periwound skin is Cool. Periwound skin does not exhibit signs or symptoms of infection. Local Pulse is Doppler. Neurological: Cranial nerves grossly intact with symmetric function normal by informal observation.. ASSESSMENT Active Problems ICD-10 (Encounter Diagnosis) E11.621 - Type 2 diabetes mellitus with foot ulcer (Encounter Diagnosis) L97.412 - Non-pressure chronic ulcer of right heel and midfoot with fat layer exposed (Encounter Diagnosis) L97.512 - Non-pressure chronic ulcer of other part of right foot with fat layer exposed (Encounter Diagnosis) I70.238 - Atherosclerosis of [place] arteries of right leg with ulceration of other part of lower right leg (Encounter Diagnosis) R21 - Rash and other nonspecific skin eruption PROCEDURES Wound #8 Wound #8 (Diabetic Ulcer) is located on the right heel. A skin/subcutaneous tissue level surgical debridement with a total area debrided of 1.1 sq cm was performed by Raphael Bush MD. Subcutaneous was removed along with devitalized tissue: callus, exudate , slough, and maceration. The following instrument(s) were used: curette. Pain control was achieved using 4% Lido. A time out was conducted prior to the start of the procedure. A minimal amount of bleeding was controlled with pressure. The procedure was tolerated well with a pain level of 3 throughout and a pain level of 1 following the procedure. Post Debridement Measurements: 1.1cm length x 1cm width x 0.3cm depth; with an area of 1.1 sq cm and a volume of 0.33 cubic cm; Wound #11 Wound #11 (Diabetic Ulcer) is located on the right, dorsal second toe. A skin/ subcutaneous tissue level surgical debridement with a total area debrided of 3.2 sq cm was performed by Raphael Bush MD. Subcutaneous was removed along with devitalized tissue: exudate and slough. The following instrument(s) were used: curette. Pain control was achieved using 4% Lido. A time out was conducted prior to the start of the procedure. A minimal amount of bleeding was controlled with pressure. The procedure was tolerated well with a pain level of 0 throughout and a pain level of 0 following the procedure. Post Debridement Measurements: 1.6cm length x 2cm width x 0.2cm depth; with an area of 3.2 sq cm and a volume of 0.64 cubic cm; Additional Information Muscle fascia or bone removed and sent to pathology?: No Muscle fascia or bone removed and sent to pathology?: No PLAN Wound Orders: Wound #8 Right Heel Anesthetic Topical Xylocaine to wound bed. - In clinic. Cleanser Cleanse Wound: - Normal saline and gauze, use distilled water at home. May Shower. - Protect with shower boot/cast protector. Dressings Cover and secure with: - Foam and hypafix tape. Change Dressing: - Every other day. Wound #11 Right, Dorsal Second Toe Anesthetic Topical Xylocaine to wound bed. - In clinic. Cleanser Cleanse Wound: - Normal saline and gauze, use distilled water at home. May Shower. - Protect with shower boot/cast protector. Dressings Cover and secure with: - Foam and hypafix tape. Change Dressing: - Every other day. Additional Orders: Follow-Up Appointments Return Appointment: - - One week. Other information: If you develop fever, chills, increased pain, drainage, redness or swelling please call our office. If after hours, respond to the ER. Should you experience any significant changes in your wound(s) or have any questions regarding your home care instructions please contact the wound center @ [phone]. If after hours, contact your primary care physician or go to the hospital emergency room. Scribing Attestation I attest, as the nurse, that I scribed these orders for the physician. I've reviewed the clinician's documentation and agree with the evaluation and plan as written. In addition the patient's ulcers demonstrate evidence of non-viable devitalized tissue and they will continue to benefit from sharp debridement to help promote granulation and expedite healing. Also, we'll await feedback regarding her PAD intervention scheduled for next Wednesday. Electronic Signature(s) Signed By: Date: Raphael Bush MD 01/28/2018 15:01:25 Entered By: Raphael Bush on 01/28/2018 15:00:37
== END ==
PROVIDERS: Family Provider Family Medicine; PCP Family Medicine; Visit Provider Internal Medicine
DX: E11.621 Type 2 diabetes mellitus with foot ulcer (principal); E11.40 Type 2 diabetes mellitus with diabetic neuropathy, unspecified; L97.512 Non-pressure chronic ulcer of other part of right foot with fat layer exposed; E11.622 Type 2 diabetes mellitus with other skin ulcer; L97.412 Non-pressure chronic ulcer of right heel and midfoot with fat layer exposed; I70.238 Atherosclerosis of native arteries of right leg with ulceration of other part of lower leg; R21 Rash and other nonspecific skin eruption
CPT/HCPCS: 11042

== ENCOUNTER → 2018-02-04 09:38 | Outpatient (CLI) | payer OTHER, MEDICAID, SELFPAY ==
--- NOTE | 2018-02-04 | OV.WND_ITS ---
Progress Note Details Patient Name: Ariana Causey Patient Number: [id number] PatientPatientDate: 02/04/2018 Clinician: Clara Espino Clinician Cosigner: Jacqueline Patel Physician / Barrel Loader And Cleaner: Raphael Bush SUBJECTIVE Chief Complaint This information was obtained from the patient Diabetic ulcers on right foot. Allergies Sulfa (Sulfonamide Antibiotics), Vicodin HPI This information was obtained from the patient 02/04/18. Seen by Dr. Bush. The patient does not report pain or significant drainage associated with the chronic right first and second toe and right heal diabetic ulcers since her last visit. She underwent right SFA angioplasty on Wednesday without complications and is now taking Plavix daily as prescribed. 01/28/18. Seen by Dr. Bush. The patient does not report pain or significant drainage associated with the chronic right first and second toe and right heal diabetic ulcers since her last visit. She's scheduled for intervention for her right leg PAD with [facility] on Wednesday and notes her inguinal and truncal fungal rash are improving since starting on terbenafine last week. 01/21/18. Seen by Dr. Bush. The patient does not report pain or significant drainage associated with the chronic right first and second toe and right heal diabetic ulcers since her last visit. She's scheduled for intervention for her right leg PAD with [facility] at the end of January and notes her inguinal and truncal fungal rash must be nearly resolved by then but has not improved while on oral fluconazole. 01/14/18. Seen by Dr. Bush. The patient does not report pain or significant drainage associated with the chronic right first and second toe and right heal diabetic ulcers since her last visit. She reports a painful, progressive rash over her gluteals for which she's applying topical nystatin and she states she's not yet been contacted regarding her referral to [facility] to address the right SFA stenosis which is likely delaying healing of the chronic right heel ulcer. 01/07/18. Seen by Dr. Bush. The patient does not report pain or significant drainage associated with the chronic right first and second toe and right heal diabetic ulcers since her last visit. Her MRA revealed a significant right SFA stenosis amenable to intervention along with some left leg PAD. She does not report rest pain necessarily but does have pain in her feet when lying in bed and is relatively limited in her mobility. 12/31/17. Seen by Dr. Bush. The patient does not report pain or significant drainage associated with the chronic right first and second toe and right heal diabetic ulcers since her last visit and she has her MRA of the right leg scheduled for later today to evaluate for clinically significant PAD as a complicating factor in the refractory nature of the right heel ulcer. 12/24/17. Seen by Dr. Bush. The patient does not report pain or significant drainage associated with the chronic right first and second toe and right heal diabetic ulcers since her last visit. Her wound culture taken at the last visit again grew MRSA plus a new Pantoea species. She's now on linezolid and does not report adverse side effects, fevers , or feeling unwell in general and states her blood sugars continue to improve with most in the low 200's. Her MRA of the right leg is scheduled for 01/03/18. 12/17/17. Seen by Dr. Bush. The patient does not report pain or significant drainage associated with the chronic right first and second toe and right heal diabetic ulcers since her last visit. She does report recurrence however of a left 4th toe diabetic ulcers along with drainage over the dorsum of the left 1st through 3rd toes at sites of previously healed diabetic ulcers. She's been treated recently for a resistant and recurrent MRSA infection of the right foot ulcers and is awaiting a right leg MRA to evaluate for clinically significant PAD as a source of the stalled healing of the right heel ulcer. Her blood sugars are improving however still tend to be above 200 on occasion. 12/10/17. Seen by Dr. Bush. The patient does not report pain or significant drainage associated with the chronic right first and second toe and right heal diabetic ulcers since her last visit. She's completed a course of linezollid that is treating the recent M RSA positive wound culture of the heel. She also has an MRA pending to reevaluate PAD of the leg. 12/03/17. Seen by Dr. Bush. The patient does not report pain or increased drainage associated with the right heel or right 1st and 2nd toe diabetic ulcers since her last visit and she'll complete her course of linezolid today that's been treating the MRSA positive culture. 11/26/17. Seen by Dr. Bush. The patient does not report pain or increased drainage associated with the right heel or right 2nd toe diabetic ulcers since her last visit and she's now on linezolid for the MRSA positive culture taken at her last visit. She does not report fevers, feeling unwell, or adverse side effects of the antibiotics and her NPWT was held at her last visit. 11/19/17. Seen by Dr. Bush. The patient does not report pain or increased drainage associated with the right heel diabetic ulcer since her last visit however there 's new drainage overlying the recently healed right 2nd toe diabetic ulcer. Her blood sugars are again over 300 today and she states she ate a lot of grapes yesterday. 11/05/17. Seen by Dr. Bush. The patient's completed her course of linezolid that was given to treat the recurrent MRSA positive culture taken from the right heel diabetic ulcer. She's tolerating NPWT without difficulty and although she's now received her glucometer and supplies she's still not checking her blood sugars as recommended. 10/29/17. Seen by Dr. Bush. The patient's started her course of linezolid that' s treating the recurrent MRSA culture from the chronic right heel diabetic ulcer. She reports less pain from the site and no increase in drainage or pain associated with the left 3rd and 4th toe nor right 2nd toe diabetic ulcer as well. 10/22/17. Seen by Dr. Bush. The patient continues to report some pain associated with the chronic right heel diabetic ulcer but none with the remaining right 2nd toe nor left 3rd and 4th toe diabetic ulcers. Her heel ulcer wound culture grew MRSA again and she's not currently on antibiotics. She's still not checking her blood sugars although is taking insulin and she has an appointment with her PCP to discuss getting another glucometer. 10/15/17. Seen by Dr. Bush. The patient continues to report some pain associated with the chronic right heel diabetic ulcer but none with the remaining right 2nd toe nor left 3rd and 4th toe diabetic ulcers. Of note, she restarted taking her insulin as prescribed with the assistance of her caregiver however they're not checking blood sugars when taking the insulin. 10/08/17. Seen by Dr. Bush. The patient continues on doxycycline for the recent MRSA and Strep positive wound culture although she should have completed this by now. She feels she may have missed a few doses and of note is also not checking her blood glucose at home. She does not report significant pain or drainage associated with the bilateral diabetic foot ulcers however and is tolerating NPWT treating the right heel ulcer without difficulty. He blood sugar is again elevated at 261 and she's to have an A1c repeated next week. 10/01/17. Seen by Dr. Bush. The patient's now on doxycycline again for MRSA and Streptococcus species cultured from the right 2nd toe diabetic ulcer although there's intermediate resistance noted on the culture sensitivies. She does not report increased pain or drainage from this site nor the right heel or left 2nd and 3rd toe diabetic foot ulcers and she's tolerating the antibiotic without reporting adverse side effects. 09/24/17. Seen by Randell Turner PA-C. The patient reports high blood sugars and increased drainage from her left foot diabetic ulcers. 09/17/17. Seen by Dr. Bush. The patient reports pain associated with the chronic left 3rd and 4th toe and right 2nd toe diabetic ulcers since her last visit and staff report significant maceration in these periulcer areas. Otherwise she'll complete her course of antibiotics that's treating the recent MRSA positive wound culture and is tolerating the wound vac overlying the right lateral heel diabetic ulcer. Her blood sugar is again over 300 today and she states she forgot to take her Lantus this morning. 09/10/17. Seen by Dr. Bush. The patient's now on doxycycline for the MRSA positive culture taken from the chronic right lateral heel diabetic ulcer last week. She does not report adverse side effects or other acute issues regarding the remaining left and right foot diabetic ulcers. Her blood sugars are again over 300 today which she attributes to eating strawberries this morning. 09/03/17. Seen by Dr. Bush. The patient reports some increased drainage associated with the bilateral diabetic foot ulcers since her last visit and she's still not checking blood sugars at home as recommended. Otherwise she's tolerating negative pressure wound therapy without difficulty and does not report any acute issues at this time. 08/27/17. Seen by Dr. Bush. The patient does not report significant pain nor drainage associated with the bilateral diabetic foot ulcers since her last visit and she tolerated negative pressure wound therapy of the right lateral heel diabetic ulcer without difficulty. 08/20/17. Seen by Dr. Bush. The patient does not report significant pain nor drainage associated with the bilateral diabetic foot ulcers since her last visit and she tolerated negative pressure wound therapy of the right lateral heel diabetic ulcer without difficulty. 08/13/17. Seen by Dr. Bush. The patient does not report significant pain nor drainage associated with the bilateral diabetic foot ulcers since her last visit and she tolerated negative pressure wound therapy of the right lateral heel diabetic ulcer without difficulty. Also, her blood sugars are improving although are still elevated at 204 today. 08/06/17. Seen by Dr. Bush. The patient does not report significant pain nor drainage associated with the bilateral diabetic foot ulcers since her last visit and she tolerated negative pressure wound therapy of the right lateral heel diabetic ulcer without difficulty. 07/30/17. Seen by Dr. Bush. The patient does not report significant pain nor drainage associated with the bilateral diabetic foot ulcers since her last visit and she tolerated negative pressure wound therapy of the right lateral heel diabetic ulcer without difficulty. 07/23/17. Seen by Dr. Bush. The patient does not report significant pain nor drainage associated with the bilateral diabetic foot ulcers since her last visit. Her MRI did not indicate osteo-myelitis of the right heel and she's been off of Zyvox that was treated in the recent MRSA infection for over a week. She has continued to apply topical gentamicin to the ulcers as recommended. Of note, her blood sugar is elevated again today at 227 which has been an ongoing issue since she's been attending our clinic. 07/16/17. Seen by Dr. Bush. The patient continues to report improvement in terms of pain and drainage associated with the chronic right and left foot diabetic ulcer since her last visit. She's completed a course of Zyvox that's been treating the recent MRSA positive wound culture of the right heel and does not report adverse side effects. She also has an MRI of the heel next week to evaluate for possible osteomyelitis. 07/13/17. Seen by Dr. Bush. The patient reports significant improvement in terms of her right heel pain since starting on Zyvox last week. She also feels in general the bilateral diabetic foot ulcers are draining less and improving. Her A1c was very high and her primary care provider increased her Lantus to 40 units twice daily. 07/09/17. Seen by Dr. Bush. The patient has not yet picked up her prescription for Zyvox which was approved yesterday to treat the right lateral heel MRSA positive wound culture. She does report increased pain or drainage associated with either the left or right foot diabetic ulcers and her blood sugars are just over 200 today which is an improvement. She is to follow-up with primary care provider today also noting her chronically elevated blood sugars and need for improving terms of her diabetes management in general. 07/06/17. Seen by Dr. Bush. The patient continues to report significant pain associated with bilateral right heel diabetic foot ulcer over the past week. Her wound culture grew a very resistant MRSA and she is not currently on systemic antibiotics. She does not report seeing any pain or drainage associated with the other right and left foot diabetic ulcers. As a side note, the patient states that her 10-year-old grandson is staying with her and has been helping with her insulin. 07/02/17. Seen by Dr. Bush. The patient's blood sugar 316 today and she still not checking them daily at home is recommended. She does not report significant pain or increased drainage associated with bilateral right and left foot diabetic ulcers since her last visit. 06/25/17. She will Dr. Bush. The patient continues on doxycycline for the MRSA positive culture taken from her right foot diabetic ulcer. She does not report increased drainage or pain associated with the bilateral diabetic foot ulcers and her x-ray of the right heel did not confirm osteomyelitis. Her blood sugars continue to be consistently around 250 and she is now checking them daily with the help of her caregiver. 06/18/16. Seen by JED Ruffin. The patient denies pain or increased drainage associated with bilateral diabetic foot ulcers. She was started on Doxycycline last week per MRSA culture. She takes her last dose today. Her blood sugar in clinic today was 255. She continues to be inconsistent with checking her blood sugars at home and continues to smoke despite being counseled on the associated negative effects on wound healing. 06/11/17. Seen by Dr. Bush. The patient does not report pain or increased drainage associated with bilateral diabetic foot ulcers. She has not picked up her antibiotic prescription to treat the recently cultured MRSA. Her blood sugar is 267 today following having a cookie for breakfast and she is also not checking her blood sugars routinely despite taking insulin. Of note, she has shown a pattern of noncompliance since establishing care at our clinic. She does not report fevers or feeling unwell in general. 06/04/17. Seen by Randell Turner PA-C. The patient reports no increase in drainage from her bilateral diabetic foot ulcers. Her CT Angiogram did not show hemodynamically significant stenosis or occlusions of her lower extremity arteries. She has not attempted to make an appointment to see her PCP regarding her persistent hyperglycemia. She continues smoking cigarettes and does not indicate a willingness to cut down or quit to help her ulcers heal. In addition, when a dog hair was pulled from her ulcer today she reported that I may have let my dog lay on my feet when I didn't have a bandage on. 05/28/17. Seen by Randell Turner PA-C. The patient reports stable drainage and pain from her diabetic foot ulcers. She initially refuses to have her blood sugar taken today citing having just eaten a box of candy. She has not attempted to make an appointment with her PCP to discuss her blood sugars. She continues on doxycycline for her ulcer infection and her CT angiogram to evaluate her PAD is scheduled for next week. In addition she continues smoking cigarettes. 05/18/17. Seen by Randell Turner PA-C. The patient reports decreased ulcer pain and stable drainage. Her blood sugars are reportedly over 200 and she has not made an appointment with her PCP to address this as instructed. 05/11/17. Seen by Randell Turner PA-C. The patient reports a decrease in ulcer pain from her bilateral lower extremity ulcers since taking her antibiotics. Her blood sugars continue to be over 150. 05/07/17. Seen by Randell Turner PA-C. The patient reports that her blood sugars have never ever been below 150 and that she has not yet begun taking the Doxycycline I have prescribed. She is willing to undergo debridement but is concerned about pain. Of note regarding pain, when I attempted to palpate her left pedal pulse, she stated that she experienced 7.5/10 pain from the light touch of palpating the dorsum of her foot. 04/29/17. Seen by Randell Turner PA-C. The patient reports increased pain from her ulcers, indicating that she will not be able to tolerate a debridement today of her ulcers. She is willing, however, to undergo a limited debridement to remove some devitalized tissue and obtain a tissue sample for bacterial culture. In addition, the patient notes new ulcers of her left leg and they have been rapidly increasing in size by her report. 04/23/17. Seen by Dr. Bush. The patient does not report significant pain or increased drainage associated with bilateral dorsal toe diabetic ulcers since her last visit. 04/16/17. Seen by Dr. Bush. The patient reports some new ulcers over the left toes and does not know how long they've been there but states they're somewhat painful. She does not report any increase in drainage or pain associated with chronic right first and second toe diabetic ulcers over the past week. She states she is not checking her blood sugars routinely because she is not able to use her glucometer and she has been decreasing her smoking substantially. She does not report fevers or feeling unwell or any other acute issues today. 04/09/17. Seen by Dr. Bush. The patient does not report significant pain nor increased drainage associated with the chronic right first and second toe diabetic ulcers since her last visit. Her arterial Doppler also did not confirm clinically significant PAD.She' s completed her course of oral antibiotics that was treated in the Enterobacter positive wound culture however continues to apply topical gentamicin dressing changes. Her blood sugars again are elevated today at 256. 04/01/17. Seen by Dr. Bush. The patient can to use reports some discomfort associated with the chronic right first and second toe diabetic ulcers. She was to have an arterial Doppler today to evaluate for PAD however was unable to make the appointment due to transportation issues. She continues on ciprofloxacin to treat the Enterobacter positive wound culture taken at the initial visit. Of note, her diabetes has been very poorly controlled and she continues to smoke cigarettes. Her blood sugar today is 354. 03/24/17. Seen by Dr. Bush. The patient continues to report pain associated with the chronic right first and second toe diabetic ulcers. She continues on ciprofloxacin for the recently cultured Enterobacter positive culture. She is a report of her side effects nor fevers or feeling unwell. Also, her blood sugars continue to be poorly controlled and are well over 300 today. 03/17/17. Seen by Dr. Bush. The patient is new to our clinic and presents with chronic right first and second toe diabetic ulcers. She states that they occurred spontaneously about 1 month ago and have been slowly progressing. She reports some modest pain and drainage however does not report fevers. Her diabetes is very poorly controlled with an A1c reportedly of 14 and she smokes half pack of cigarettes daily. Her primary care provider started her on Augmentin yesterday. Past Medical History This information was obtained from the patient Patient has a medical history of: Diabetes, type 2 Diabetic Neuropathy Urinary Incontinence Fibromylagia CVA Osteoarthritis Gastro Esoph. Reflux Disease (GERD) Sleep Apnea Hyperlipidemia Depression Complaints and Symptoms This information was obtained from the patient Patient complains of: General Notes: I have reviewed and concur with the Review of Systems and Past Family Social History documents completed by the clinician, I have reviewed and concur with the Wound Assessment document completed by the clinician Cardiovascular (Central): Dyspnea on Exertion Integumentary (Hair/Skin/Nails): Open Sore Musculoskeletal: Joint Swelling Prior Wound History: Drainage, Erythema, Pain Patient denies complaints or symptoms related to: Cardiovascular (Central): Irregular heart beat Cardiovascular (Central/Peripheral): Intermittent Claudication Constitutional Symptoms (General Health): Chills, Fever Ear/Nose/Mouth/Throat: Hearing Loss / Aid Gastrointestinal (GI): Nausea / Vomiting Hematologic/Lymphatic: Bleeding / Clotting Disorders, Bleeding Tendency Neurological: Loss of Protective Sensation Prior Wound History: Bleeding Psychiatric: Memory Loss Respiratory: Oxygen Use, Shortness of Breath Additional Information Does patient have a history of Cancer? Yes? Complete all questions.: No OBJECTIVE Constitutional BP elevated; Afebrile; Alert and in no distress. Well developed. Alert. Clean appearing.. Height/Length: 63 in (160.02 cm), Weight: 214.2 lbs (97.36 kgs), BMI: 37.9, Temperature: 97.4 ?F (36.33 ?C), Pulse: 92 bpm, Respiratory Rate: 20 breaths/min, Blood Pressure: 148/93 mmHg, Capillary Blood Glucose: 164 mg/dl. Vital Signs Notes: Glucose per patient. Respiratory: No respiratory distress. Even respirations and without use of accessory muscles.. Cardiovascular: 1+ right lower extremity edema. Gastrointestinal (GI): Obese. Nondistended.. Integumentary (Hair, Skin) No periwound erythema, warmth, or significant drainage. No periwound rashes appreciated or noted otherwise.. Refer to appropriate clinician wound documentation for this visit; right and 2nd toe ulcers extend to subcut with bases partially covered with pink granulation, remainder fibrin and slough. Maceration present in the periwound areas. Wound #8 Right Heel is a chronic Aguilar Grade 2 Diabetic Ulcer and has received a status of Not Healed. Subsequent wound encounter measurements are 1cm length x 1cm width x 0.3cm depth, with an area of 1 sq cm and a volume of 0.3 cubic cm. No tunneling has been noted. No sinus tract has been noted. No undermining has been noted. There is a small amount of serosanguineous drainage noted which has no odor. The patient reports a wound pain of level 2/10. The wound margin is attached. Wound bed has Yes epithelialization, No eschar, Yes slough, Yes bright red, pink, spongy granulation. The periwound skin texture is normal. The periwound skin exhibited: Moist, Maceration, Cyanosis. The periwound skin did not exhibit: Dry/Scaly, Atrophie Kasandra, Ecchymosis, Erythema, Hemosiderosis, Pallor, Rubor. The temperature of the periwound skin is Cool. Periwound skin does not exhibit signs or symptoms of infection. Local Pulse is Palpable. Wound #11 Right, Dorsal Second Toe is a chronic Aguilar Grade 1 Diabetic Ulcer and has received a status of Not Healed. Subsequent wound encounter measurements are 1.6cm length x 1.8cm width x 0.1cm depth, with an area of 2.88 sq cm and a volume of 0.288 cubic cm. Hypergranulation was noted. No tunneling has been noted. No sinus tract has been noted. No undermining has been noted. There is a moderate amount of serosanguineous drainage noted which has no odor. The patient reports a wound pain of level 0/10. The wound margin is attached. Wound bed has Yes epithelialization, No eschar, Yes slough, Yes bright red, firm granulation. The periwound skin exhibited: Edema, Moist, Maceration, Cyanosis. The periwound skin did not exhibit: Brawny Induration, Excoriation, Induration, Callus, Crepitus, Fluctuance, Friable, Rash, Dry/Scaly, Atrophie Umbarger, Ecchymosis, Erythema, Hemosiderosis, Pallor, Rubor. The temperature of the periwound skin is Cool. Periwound skin does not exhibit signs or symptoms of infection. Local Pulse is Doppler. Neurological: Cranial nerves grossly intact with symmetric function normal by informal observation.. 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 A skin/subcutaneous tissue level surgical debridement with a total area debrided of 1 sq cm was performed by Raphael Bush MD. Subcutaneous was removed along with devitalized tissue: slough. The following instrument(s) were used: curette. Pain control was achieved using 4% Lido. A time out was conducted prior to the start of the procedure. A minimal amount of bleeding was controlled with n/a. The procedure was tolerated well with a pain level of 0 throughout and a pain level of 0 following the procedure. Post Debridement Measurements: 1cm length x 1cm width x 0.4cm depth; with an area of 1 sq cm and a volume of 0.4 cubic cm; Wound #11 Wound #11 (Diabetic Ulcer) is located on the right, dorsal second toe. A skin/ subcutaneous tissue level surgical debridement with a total area debrided of 2.88 sq cm was performed by Raphael Bush MD. Subcutaneous was removed along with devitalized tissue: slough. The following instrument(s) were used: curette. Pain control was achieved using 4% Lido. A time out was conducted prior to the start of the procedure. A minimal amount of bleeding was controlled with n/a. The procedure was tolerated well with a pain level of 0 throughout and a pain level of 0 following the procedure. Post Debridement Measurements: 1.6cm length x 1.8cm width x 0.2cm depth; with an area of 2.88 sq cm and a volume of 0.576 cubic cm; Additional Information Muscle fascia or bone removed and sent to pathology?: No Muscle fascia or bone removed and sent to pathology?: No PLAN Wound Orders: Wound #8 Right Heel Anesthetic Topical Xylocaine to wound bed. - In clinic. Cleanser Cleanse Wound: - Normal saline and gauze, use distilled water at home. May Shower. - Protect with shower boot/cast protector. Dressings Cover and secure with: - Foam and hypafix tape. Change Dressing: - Every other day. Wound #11 Right, Dorsal Second Toe Anesthetic Topical Xylocaine to wound bed. - In clinic. Cleanser Cleanse Wound: - Normal saline and gauze, use distilled water at home. May Shower. - Protect with shower boot/cast protector. Dressings Cover and secure with: - Foam and hypafix tape. Change Dressing: - Every other day. Additional Orders: Follow-Up Appointments Return Appointment: - - One week with Dr. Bush Other information: If you develop fever, chills, increased pain, drainage, redness or swelling please call our office. If after hours, respond to the ER. Should you experience any significant changes in your wound(s) or have any questions regarding your home care instructions please contact the wound center @ [phone]. If after hours, contact your primary care physician or go to the hospital emergency room. Scribing Attestation I attest, as the nurse, that I scribed these orders for the physician. I've reviewed the clinician's documentation and agree with the evaluation and plan as written. In addition the patient's ulcers demonstrate evidence of non-viable devitalized tissue and they will continue to benefit from sharp debridement to help promote granulation and expedite healing. Electronic Signature(s) Signed By: Date: Raphael Bush MD 02/07/2018 06:58:18 Entered By: Raphael Bush on 02/07/2018 06:51:11
== END ==
PROVIDERS: Family Provider Family Medicine; PCP Family Medicine; Visit Provider Internal Medicine
DX: E11.621 Type 2 diabetes mellitus with foot ulcer (principal); L97.512 Non-pressure chronic ulcer of other part of right foot with fat layer exposed; E11.622 Type 2 diabetes mellitus with other skin ulcer; L97.412 Non-pressure chronic ulcer of right heel and midfoot with fat layer exposed; I70.238 Atherosclerosis of native arteries of right leg with ulceration of other part of lower leg
CPT/HCPCS: 11042

== ENCOUNTER → 2018-03-22 15:00 | Outpatient (REF) | payer OTHER, MEDICAID, SELFPAY | LOC: LAB 15:00 | PROVIDERS: Family Provider Family Medicine; PCP Family Medicine; Visit Provider Internal Medicine | DX: L97.412 Non-pressure chronic ulcer of right heel and midfoot with fat layer exposed (principal) | CPT/HCPCS: 87070; 87075; 87077; 87147; 87186; 87205 ==

== ENCOUNTER → 2018-06-08 08:43 | Outpatient (CLI) | payer OTHER, MEDICAID, SELFPAY | PROVIDERS: Family Provider Family Medicine; PCP Family Medicine; Visit Provider Family Medicine | DX: E11.622 Type 2 diabetes mellitus with other skin ulcer (principal); L97.412 Non-pressure chronic ulcer of right heel and midfoot with fat layer exposed; E11.621 Type 2 diabetes mellitus with foot ulcer; L97.512 Non-pressure chronic ulcer of other part of right foot with fat layer exposed; L97.522 Non-pressure chronic ulcer of other part of left foot with fat layer exposed; I70.293 Other atherosclerosis of native arteries of extremities, bilateral legs | CPT/HCPCS: 11042; 11045; 87070; 87075; 87077; 87205; 99214 ==

== ENCOUNTER → 2018-06-15 10:14 | Outpatient (CLI) | payer OTHER, MEDICAID, SELFPAY | PROVIDERS: Family Provider Family Medicine; PCP Family Medicine; Visit Provider Family Medicine | DX: E11.621 Type 2 diabetes mellitus with foot ulcer (principal); L97.412 Non-pressure chronic ulcer of right heel and midfoot with fat layer exposed; L97.512 Non-pressure chronic ulcer of other part of right foot with fat layer exposed; L97.522 Non-pressure chronic ulcer of other part of left foot with fat layer exposed; M86.171 Other acute osteomyelitis, right ankle and foot; I70.293 Other atherosclerosis of native arteries of extremities, bilateral legs | CPT/HCPCS: 11042; 11045 ==

== ENCOUNTER → 2018-06-22 10:29 | Outpatient (CLI) | payer OTHER, MEDICAID, SELFPAY | PROVIDERS: Family Provider Family Medicine; PCP Family Medicine; Visit Provider Family Medicine | DX: E11.621 Type 2 diabetes mellitus with foot ulcer (principal); L97.521 Non-pressure chronic ulcer of other part of left foot limited to breakdown of skin; L97.512 Non-pressure chronic ulcer of other part of right foot with fat layer exposed; E11.622 Type 2 diabetes mellitus with other skin ulcer; L97.411 Non-pressure chronic ulcer of right heel and midfoot limited to breakdown of skin; M86.171 Other acute osteomyelitis, right ankle and foot; I70.293 Other atherosclerosis of native arteries of extremities, bilateral legs; F17.210 Nicotine dependence, cigarettes, uncomplicated | CPT/HCPCS: 11042 ==

== ENCOUNTER → 2018-06-30 13:03 | Outpatient (CLI) | payer OTHER, MEDICAID, SELFPAY | PROVIDERS: Family Provider Family Medicine; PCP Family Medicine; Visit Provider Family Medicine | DX: E11.621 Type 2 diabetes mellitus with foot ulcer (principal); L97.511 Non-pressure chronic ulcer of other part of right foot limited to breakdown of skin; L97.521 Non-pressure chronic ulcer of other part of left foot limited to breakdown of skin; L97.411 Non-pressure chronic ulcer of right heel and midfoot limited to breakdown of skin; I70.293 Other atherosclerosis of native arteries of extremities, bilateral legs | CPT/HCPCS: 11042 ==

== ENCOUNTER → 2018-07-07 11:10 | Outpatient (CLI) | payer OTHER, MEDICAID, SELFPAY | PROVIDERS: Family Provider Family Medicine; PCP Family Medicine; Visit Provider Family Medicine | DX: E11.621 Type 2 diabetes mellitus with foot ulcer (principal); L97.412 Non-pressure chronic ulcer of right heel and midfoot with fat layer exposed; L97.512 Non-pressure chronic ulcer of other part of right foot with fat layer exposed; L97.522 Non-pressure chronic ulcer of other part of left foot with fat layer exposed; M86.171 Other acute osteomyelitis, right ankle and foot; I70.293 Other atherosclerosis of native arteries of extremities, bilateral legs; L60.1 Onycholysis | CPT/HCPCS: 11042; 11730; 87070; 87075; 87077; 87147; 87186; 87205 ==

== ENCOUNTER → 2018-07-13 13:51 | Outpatient (CLI) | payer OTHER, MEDICAID, SELFPAY | PROVIDERS: Family Provider Family Medicine; PCP Family Medicine; Visit Provider Family Medicine | DX: E11.621 Type 2 diabetes mellitus with foot ulcer (principal); L97.511 Non-pressure chronic ulcer of other part of right foot limited to breakdown of skin; L97.521 Non-pressure chronic ulcer of other part of left foot limited to breakdown of skin; E11.622 Type 2 diabetes mellitus with other skin ulcer; L97.411 Non-pressure chronic ulcer of right heel and midfoot limited to breakdown of skin | CPT/HCPCS: 11042; 99214 ==

== ENCOUNTER → 2018-07-13 15:35 | Outpatient (CLI) | payer OTHER, MEDICAID, SELFPAY ==
[2018-07-13 16:23] LABS: Add Manual Diff / Slide Review NO; Basophils Absolute Auto 200 /uL (0-100); Eosinophils Absolute Auto 800 /uL (0-450); Eosinophils Percent Auto 3.8 % (2-4); Hemoglobin 13.1 g/dL (12.0-16.0); Lymphocytes Absolute Auto 3200 /uL (1100-4500); Lymphocytes Percent Auto 15.1 % (25-40); Mean Corpuscular HGB Conc 33.6 % (30-36); Mean Corpuscular Hemoglobin 29.3 PG (26-34); Mean Corpuscular Volume 87.1 fL (80-100); Monocytes Absolute Auto 1900 /uL (0-900); Monocytes Percent Auto 8.9 % (3-14); Neutrophils Absolute Auto 14800 /uL (1500-7000); Neutrophils Percent Auto 71.2 % (50-75); Platelet Count 501 X10^3/uL (150-400); Red Blood Cell Count 4.48 X10^6/uL (4.0-5.2); Red Cell Distribution Width 14.3 % (11.6-14.8); White Blood Cell Count 20.9 X10^3/uL (4.5-11.0)
[2018-07-13 16:32] LABS: Hemoglobin A1C% w Est Avg Glu 10.5 % (4.0-6.0)
[2018-07-13 16:51] LABS: Erythrocyte Sedimentation Rate 36 MM/HR (0-20)
[2018-07-13 17:58] LABS: Alanine Aminotransferase 19 IU/L (9-52); Albumin Globulin Ratio 1.4 (1.0-2.8); Alkaline Phosphatase 128 U/L (38-126); Aspartate Aminotransferase 13 IU/L (14-36); BUN Creatinine Ratio 27.5 (6-22); Bilirubin Total 0.2 mg/dL (0.2-1.3); Blood Urea Nitrogen 11 mg/dL (7-17); C-Reactive Protein Quant 1.3 mg/dL (<1.0); Calcium 9.2 mg/dL (8.4-10.2); Carbon Dioxide 27 mmol/L (22-32); Chloride 98 mmol/L (98-107); Estimated Glomerular Filt Rate > 60.0 mL/min (>60); Globulin 2.9 g/dL (1.7-4.1); Glucose 251 mg/dL (80-110); HEMOLYSIS < 15 (0-50); Potassium 4.6 mmol/L (3.4-5.1); Sodium 137 mmol/L (137-145); Total Protein 6.9 g/dL (6.3-8.2)
== END ==
PROVIDERS: PCP Family Medicine; Visit Provider Family Medicine
DX: E11.621 Type 2 diabetes mellitus with foot ulcer (principal); L08.9 Local infection of the skin and subcutaneous tissue, unspecified
CPT/HCPCS: 36415; 80053; 83036; 85025; 85651; 86140

== ENCOUNTER → 2018-07-20 13:37 | Outpatient (CLI) | payer OTHER, MEDICAID, SELFPAY | PROVIDERS: PCP Family Medicine; Visit Provider Family Medicine | DX: E11.621 Type 2 diabetes mellitus with foot ulcer (principal); L97.412 Non-pressure chronic ulcer of right heel and midfoot with fat layer exposed; L97.512 Non-pressure chronic ulcer of other part of right foot with fat layer exposed; L97.522 Non-pressure chronic ulcer of other part of left foot with fat layer exposed; I70.293 Other atherosclerosis of native arteries of extremities, bilateral legs; L08.9 Local infection of the skin and subcutaneous tissue, unspecified; D72.829 Elevated white blood cell count, unspecified; B95.62 Methicillin resistant Staphylococcus aureus infection as the cause of diseases classified elsewhere | CPT/HCPCS: 11042; 97597 ==

== ENCOUNTER → 2018-07-25 11:50 | Outpatient (CLI) | payer OTHER, MEDICAID, SELFPAY | PROVIDERS: PCP Family Medicine; Visit Provider Podiatrist Primary Podiatric Medicine | DX: E11.621 Type 2 diabetes mellitus with foot ulcer (principal); L97.412 Non-pressure chronic ulcer of right heel and midfoot with fat layer exposed; L97.512 Non-pressure chronic ulcer of other part of right foot with fat layer exposed; L97.522 Non-pressure chronic ulcer of other part of left foot with fat layer exposed; I70.293 Other atherosclerosis of native arteries of extremities, bilateral legs; L08.9 Local infection of the skin and subcutaneous tissue, unspecified; D72.829 Elevated white blood cell count, unspecified; B95.62 Methicillin resistant Staphylococcus aureus infection as the cause of diseases classified elsewhere | CPT/HCPCS: 99213 ==

== ENCOUNTER → 2018-08-01 10:18 | Outpatient (CLI) | payer OTHER, MEDICAID, SELFPAY | PROVIDERS: PCP Family Medicine; Visit Provider Podiatrist Primary Podiatric Medicine | DX: E11.622 Type 2 diabetes mellitus with other skin ulcer (principal); L97.411 Non-pressure chronic ulcer of right heel and midfoot limited to breakdown of skin; E11.621 Type 2 diabetes mellitus with foot ulcer; L97.521 Non-pressure chronic ulcer of other part of left foot limited to breakdown of skin; L97.511 Non-pressure chronic ulcer of other part of right foot limited to breakdown of skin | CPT/HCPCS: 97597 ==

== ENCOUNTER → 2018-08-08 10:27 | Outpatient (CLI) | payer OTHER, MEDICAID, SELFPAY | PROVIDERS: PCP Family Medicine; Visit Provider Podiatrist Primary Podiatric Medicine | DX: E11.621 Type 2 diabetes mellitus with foot ulcer (principal); L97.521 Non-pressure chronic ulcer of other part of left foot limited to breakdown of skin; L97.511 Non-pressure chronic ulcer of other part of right foot limited to breakdown of skin; L97.421 Non-pressure chronic ulcer of left heel and midfoot limited to breakdown of skin | CPT/HCPCS: 97597; 99213 ==

== ENCOUNTER → 2018-08-19 10:14 | Outpatient (CLI) | payer OTHER, MEDICAID, SELFPAY | PROVIDERS: PCP Family Medicine; Visit Provider Family Medicine | DX: E11.621 Type 2 diabetes mellitus with foot ulcer (principal); L97.412 Non-pressure chronic ulcer of right heel and midfoot with fat layer exposed; L97.512 Non-pressure chronic ulcer of other part of right foot with fat layer exposed; I70.293 Other atherosclerosis of native arteries of extremities, bilateral legs | CPT/HCPCS: 11042 ==

== ENCOUNTER → 2018-09-05 09:56 | Outpatient (CLI) | payer OTHER, MEDICAID, SELFPAY | PROVIDERS: PCP Family Medicine; Visit Provider Podiatrist Primary Podiatric Medicine | DX: E11.621 Type 2 diabetes mellitus with foot ulcer (principal); L97.411 Non-pressure chronic ulcer of right heel and midfoot limited to breakdown of skin; L97.511 Non-pressure chronic ulcer of other part of right foot limited to breakdown of skin | CPT/HCPCS: 97597 ==

== ENCOUNTER → 2018-09-12 11:01 | Outpatient (CLI) | payer OTHER, MEDICAID, SELFPAY ==
--- NOTE | 2018-09-12 | DI.RAD.S_ITS ---
PROCEDURE: XR FOOT RT MIN 3V INDICATIONS: ULCER OF RIGHT FOOT TECHNIQUE: 3 views of the foot were acquired. COMPARISON: [facility], , FOOT 3V RIGHT, 06/24/2017, 11:55. [facility], , FOOT 3V LEFT, 09/11/2014, 11:18. FINDINGS: Bones: No fractures or dislocations. No suspicious bony lesions. Soft tissues: No tibiotalar joint effusion. Achilles tendon appears normal. IMPRESSION: No fracture or foreign body seen, no gas in the soft tissues found. By this examination no osteomyelitis is suspected. Dictated by: Dejan Canales M.D. on 09/12/2018 at 11:38 Approved by: Dejan Canales M.D. on 09/12/2018 at 11:39
== END ==
PROVIDERS: PCP Family Medicine; Visit Provider Podiatrist Primary Podiatric Medicine
DX: E11.621 Type 2 diabetes mellitus with foot ulcer (principal); L97.512 Non-pressure chronic ulcer of other part of right foot with fat layer exposed
CPT/HCPCS: 73630

== ENCOUNTER → 2018-09-12 11:11 | Outpatient (CLI) | payer OTHER, MEDICAID, SELFPAY | PROVIDERS: PCP Family Medicine; Visit Provider Podiatrist Primary Podiatric Medicine | DX: E11.621 Type 2 diabetes mellitus with foot ulcer (principal); L97.411 Non-pressure chronic ulcer of right heel and midfoot limited to breakdown of skin; L97.511 Non-pressure chronic ulcer of other part of right foot limited to breakdown of skin | CPT/HCPCS: 97597 ==

== ENCOUNTER → 2018-09-19 13:58 | Outpatient (CLI) | payer OTHER, MEDICAID, SELFPAY | PROVIDERS: PCP Family Medicine; Visit Provider Podiatrist Primary Podiatric Medicine | DX: E11.621 Type 2 diabetes mellitus with foot ulcer (principal); L97.511 Non-pressure chronic ulcer of other part of right foot limited to breakdown of skin; L97.411 Non-pressure chronic ulcer of right heel and midfoot limited to breakdown of skin | CPT/HCPCS: 11042; 99213 ==

== ENCOUNTER → 2018-09-26 13:25 | Outpatient (CLI) | payer OTHER, MEDICAID, SELFPAY | PROVIDERS: PCP Family Medicine; Visit Provider Podiatrist Primary Podiatric Medicine | DX: E11.621 Type 2 diabetes mellitus with foot ulcer (principal); L97.412 Non-pressure chronic ulcer of right heel and midfoot with fat layer exposed; L97.512 Non-pressure chronic ulcer of other part of right foot with fat layer exposed | CPT/HCPCS: 97597 ==

== ENCOUNTER → 2018-10-10 10:58 | Outpatient (CLI) | payer OTHER, MEDICAID, SELFPAY | PROVIDERS: PCP Family Medicine; Visit Provider Podiatrist Primary Podiatric Medicine | DX: E11.621 Type 2 diabetes mellitus with foot ulcer (principal); L97.411 Non-pressure chronic ulcer of right heel and midfoot limited to breakdown of skin; L97.511 Non-pressure chronic ulcer of other part of right foot limited to breakdown of skin | CPT/HCPCS: 87070; 87075; 87077; 87186; 87205; 97597 ==

== ENCOUNTER → 2018-10-12 13:10 | Outpatient (CLI) | payer OTHER, MEDICAID, SELFPAY | PROVIDERS: PCP Family Medicine; Visit Provider Family Medicine | DX: E11.621 Type 2 diabetes mellitus with foot ulcer (principal); L97.411 Non-pressure chronic ulcer of right heel and midfoot limited to breakdown of skin; L97.511 Non-pressure chronic ulcer of other part of right foot limited to breakdown of skin | CPT/HCPCS: 29581 ==

== ENCOUNTER → 2018-10-17 14:35 | Outpatient (CLI) | payer OTHER, MEDICAID, SELFPAY | PROVIDERS: PCP Family Medicine; Visit Provider Podiatrist Primary Podiatric Medicine | DX: E11.621 Type 2 diabetes mellitus with foot ulcer (principal); L97.511 Non-pressure chronic ulcer of other part of right foot limited to breakdown of skin; E11.622 Type 2 diabetes mellitus with other skin ulcer; E11.40 Type 2 diabetes mellitus with diabetic neuropathy, unspecified; L97.411 Non-pressure chronic ulcer of right heel and midfoot limited to breakdown of skin | CPT/HCPCS: 97597 ==

== ENCOUNTER → 2018-10-24 14:21 | Outpatient (CLI) | payer OTHER, MEDICAID, SELFPAY | PROVIDERS: Visit Provider Podiatrist Primary Podiatric Medicine | DX: E11.621 Type 2 diabetes mellitus with foot ulcer (principal); L97.411 Non-pressure chronic ulcer of right heel and midfoot limited to breakdown of skin; L97.511 Non-pressure chronic ulcer of other part of right foot limited to breakdown of skin; R60.0 Localized edema; E66.01 Morbid (severe) obesity due to excess calories | CPT/HCPCS: 15275; 97597; 99213; Q4196 ==

== ENCOUNTER → 2018-10-31 14:11 | Outpatient (CLI) | payer OTHER, MEDICAID, SELFPAY | PROVIDERS: Visit Provider Podiatrist Primary Podiatric Medicine | DX: E11.621 Type 2 diabetes mellitus with foot ulcer (principal); E11.40 Type 2 diabetes mellitus with diabetic neuropathy, unspecified; L97.411 Non-pressure chronic ulcer of right heel and midfoot limited to breakdown of skin; L97.511 Non-pressure chronic ulcer of other part of right foot limited to breakdown of skin; M79.671 Pain in right foot; E66.01 Morbid (severe) obesity due to excess calories | CPT/HCPCS: 97597 ==

== ENCOUNTER → 2018-11-21 10:42 | Outpatient (CLI) | payer OTHER, MEDICAID, SELFPAY | PROVIDERS: Visit Provider Family Medicine | DX: I89.0 Lymphedema, not elsewhere classified (principal); E11.621 Type 2 diabetes mellitus with foot ulcer; E11.40 Type 2 diabetes mellitus with diabetic neuropathy, unspecified; L97.411 Non-pressure chronic ulcer of right heel and midfoot limited to breakdown of skin; L97.511 Non-pressure chronic ulcer of other part of right foot limited to breakdown of skin; M79.671 Pain in right foot | CPT/HCPCS: 97597 ==

== ENCOUNTER → 2018-12-12 10:05 | Outpatient (CLI) | payer OTHER, MEDICAID, SELFPAY | PROVIDERS: Visit Provider Podiatrist Primary Podiatric Medicine | DX: I89.0 Lymphedema, not elsewhere classified (principal); E11.621 Type 2 diabetes mellitus with foot ulcer; L97.412 Non-pressure chronic ulcer of right heel and midfoot with fat layer exposed; L97.512 Non-pressure chronic ulcer of other part of right foot with fat layer exposed; L97.522 Non-pressure chronic ulcer of other part of left foot with fat layer exposed; I70.293 Other atherosclerosis of native arteries of extremities, bilateral legs | CPT/HCPCS: 99213 ==

== ENCOUNTER → 2019-01-02 10:05 | Outpatient (CLI) | payer OTHER, MEDICAID, SELFPAY | PROVIDERS: Visit Provider Podiatrist Primary Podiatric Medicine | DX: E11.621 Type 2 diabetes mellitus with foot ulcer (principal); L97.429 Non-pressure chronic ulcer of left heel and midfoot with unspecified severity; L97.519 Non-pressure chronic ulcer of other part of right foot with unspecified severity; E11.40 Type 2 diabetes mellitus with diabetic neuropathy, unspecified | CPT/HCPCS: 97597; 99213 ==

== ENCOUNTER → 2019-01-16 10:57 | Outpatient (CLI) | payer OTHER, MEDICAID, SELFPAY | PROVIDERS: Visit Provider Podiatrist Primary Podiatric Medicine | DX: E11.621 Type 2 diabetes mellitus with foot ulcer (principal); L97.518 Non-pressure chronic ulcer of other part of right foot with other specified severity; L97.429 Non-pressure chronic ulcer of left heel and midfoot with unspecified severity; I89.0 Lymphedema, not elsewhere classified; E11.40 Type 2 diabetes mellitus with diabetic neuropathy, unspecified; R60.0 Localized edema | CPT/HCPCS: 99213; 99215 ==

== ENCOUNTER → 2019-02-06 09:41 | Outpatient (CLI) | payer OTHER, MEDICAID, SELFPAY | PROVIDERS: Visit Provider Podiatrist Primary Podiatric Medicine | DX: E11.621 Type 2 diabetes mellitus with foot ulcer (principal); L97.411 Non-pressure chronic ulcer of right heel and midfoot limited to breakdown of skin; L97.511 Non-pressure chronic ulcer of other part of right foot limited to breakdown of skin; L97.521 Non-pressure chronic ulcer of other part of left foot limited to breakdown of skin | CPT/HCPCS: 97597; 97598 ==

== ENCOUNTER → 2019-02-27 09:46 | Outpatient (CLI) | payer OTHER, MEDICAID, SELFPAY | PROVIDERS: Visit Provider Family Medicine | DX: E11.621 Type 2 diabetes mellitus with foot ulcer (principal); L97.519 Non-pressure chronic ulcer of other part of right foot with unspecified severity; L97.419 Non-pressure chronic ulcer of right heel and midfoot with unspecified severity; L97.529 Non-pressure chronic ulcer of other part of left foot with unspecified severity | CPT/HCPCS: 97597; 97598 ==

== ENCOUNTER → 2019-03-20 09:44 | Outpatient (CLI) | payer OTHER, MEDICAID, SELFPAY | PROVIDERS: Visit Provider Family Medicine | DX: E11.621 Type 2 diabetes mellitus with foot ulcer (principal); L97.411 Non-pressure chronic ulcer of right heel and midfoot limited to breakdown of skin; L97.511 Non-pressure chronic ulcer of other part of right foot limited to breakdown of skin; L97.521 Non-pressure chronic ulcer of other part of left foot limited to breakdown of skin | CPT/HCPCS: 99213 ==

== ENCOUNTER → 2019-04-10 10:36 | Outpatient (CLI) | payer OTHER, MEDICAID, SELFPAY | PROVIDERS: Visit Provider Family Medicine | DX: E11.621 Type 2 diabetes mellitus with foot ulcer (principal); L97.411 Non-pressure chronic ulcer of right heel and midfoot limited to breakdown of skin; L97.518 Non-pressure chronic ulcer of other part of right foot with other specified severity; L97.528 Non-pressure chronic ulcer of other part of left foot with other specified severity; E11.40 Type 2 diabetes mellitus with diabetic neuropathy, unspecified; R60.0 Localized edema | CPT/HCPCS: 11042; 11045; 87070; 87075; 87077; 87147; 87186; 87205 ==

== ENCOUNTER → 2019-05-01 11:03 | Outpatient (CLI) | payer OTHER, MEDICAID, SELFPAY ==
--- NOTE | 2019-05-01 | DI.RAD.S_ITS ---
PROCEDURE: XR FOOT RT MIN 3V INDICATIONS: Type 2 diabetes mellitus with foot ulcer TECHNIQUE: 3 views of the foot were acquired. COMPARISON: [facility], CR, XR FOOT RT MIN 3V, 09/12/2018, 11:12. [facility], CR, FOOT 3V RIGHT, 06/24/2017, 11:55. FINDINGS: Bones: No fractures or dislocations. No suspicious bony lesions. Soft tissues: No tibiotalar joint effusion. Achilles tendon appears normal. IMPRESSION: No trauma or osteomyelitis found. Dictated by: Dejan Canales M.D. on 05/01/2019 at 13:00 Approved by: Dejan Canales M.D. on 05/01/2019 at 13:01
--- NOTE | 2019-05-01 | DI.RAD.S_ITS ---
PROCEDURE: XR CALCANEOUS RT MIN 2V INDICATIONS: Type 2 diabetes mellitus with foot ulcer TECHNIQUE: Two views of the calcaneus were acquired. COMPARISON: None. FINDINGS: Bones: No fractures or dislocations. No suspicious bony lesions. Soft tissues: No suspicious calcifications. Achilles tendon appears normal. IMPRESSION: Normal calcaneus, no osteomyelitis found. Dictated by: Dejan Canales M.D. on 05/01/2019 at 13:00 Approved by: Dejan Canales M.D. on 05/01/2019 at 13:00
== END ==
PROVIDERS: PCP Nurse Practitioner Family; Visit Provider Family Medicine
DX: E11.621 Type 2 diabetes mellitus with foot ulcer (principal); L97.411 Non-pressure chronic ulcer of right heel and midfoot limited to breakdown of skin; L97.511 Non-pressure chronic ulcer of other part of right foot limited to breakdown of skin
CPT/HCPCS: 73630; 73650

== ENCOUNTER → 2019-05-01 15:15 | Outpatient (CLI) | payer OTHER, MEDICAID, SELFPAY | PROVIDERS: PCP Nurse Practitioner Family; Referring Provider Nurse Practitioner Family; Visit Provider Family Medicine | DX: E11.621 Type 2 diabetes mellitus with foot ulcer (principal); L97.411 Non-pressure chronic ulcer of right heel and midfoot limited to breakdown of skin; L97.511 Non-pressure chronic ulcer of other part of right foot limited to breakdown of skin; L97.521 Non-pressure chronic ulcer of other part of left foot limited to breakdown of skin; I70.293 Other atherosclerosis of native arteries of extremities, bilateral legs; I89.0 Lymphedema, not elsewhere classified; L08.9 Local infection of the skin and subcutaneous tissue, unspecified; B95.62 Methicillin resistant Staphylococcus aureus infection as the cause of diseases classified elsewhere; E11.40 Type 2 diabetes mellitus with diabetic neuropathy, unspecified | CPT/HCPCS: 11042; 11045; 99213; 99214 ==

== ENCOUNTER → 2019-05-22 09:50 | Outpatient (CLI) | payer OTHER, MEDICAID, SELFPAY | PROVIDERS: PCP Nurse Practitioner Family; Referring Provider Nurse Practitioner Family; Visit Provider Family Medicine | DX: E11.621 Type 2 diabetes mellitus with foot ulcer (principal); L97.411 Non-pressure chronic ulcer of right heel and midfoot limited to breakdown of skin; L97.511 Non-pressure chronic ulcer of other part of right foot limited to breakdown of skin; L97.521 Non-pressure chronic ulcer of other part of left foot limited to breakdown of skin; I70.293 Other atherosclerosis of native arteries of extremities, bilateral legs; E11.40 Type 2 diabetes mellitus with diabetic neuropathy, unspecified; E11.51 Type 2 diabetes mellitus with diabetic peripheral angiopathy without gangrene | CPT/HCPCS: 11042; 11045 ==

== ENCOUNTER → 2019-06-12 10:15 | Outpatient (CLI) | payer OTHER, MEDICAID, SELFPAY | PROVIDERS: PCP Nurse Practitioner Family; Referring Provider Nurse Practitioner Family; Visit Provider Family Medicine | DX: E11.621 Type 2 diabetes mellitus with foot ulcer (principal); L97.411 Non-pressure chronic ulcer of right heel and midfoot limited to breakdown of skin; L97.511 Non-pressure chronic ulcer of other part of right foot limited to breakdown of skin; L97.521 Non-pressure chronic ulcer of other part of left foot limited to breakdown of skin; I70.293 Other atherosclerosis of native arteries of extremities, bilateral legs; I89.0 Lymphedema, not elsewhere classified | CPT/HCPCS: 11042; 11045 ==

== ENCOUNTER → 2019-07-10 09:10 | Outpatient (CLI) | payer OTHER, MEDICAID, SELFPAY | PROVIDERS: PCP Nurse Practitioner Family; Referring Provider Nurse Practitioner Family; Visit Provider Family Medicine | DX: L97.411 Non-pressure chronic ulcer of right heel and midfoot limited to breakdown of skin (principal); L97.511 Non-pressure chronic ulcer of other part of right foot limited to breakdown of skin; R23.1 Pallor; R21 Rash and other nonspecific skin eruption; D72.829 Elevated white blood cell count, unspecified | CPT/HCPCS: 11042; 11045; 36415; 80053; 82585; 82595; 85025; 85651; 86038; 86140; 86160; 86162; 86430; 86592; 86803; 87070; 87075; 87077; 87186; 87205; 87340; 99212; 99213 ==

== ENCOUNTER → 2019-07-10 10:02 | Outpatient (CLI) | payer OTHER, MEDICAID, SELFPAY ==
[2019-07-10 11:11] LABS: Add Manual Diff / Slide Review NO; Basophils Absolute Auto 100 /uL (0-100); Basophils Percent Auto 0.5 % (0-2); Eosinophils Absolute Auto 600 /uL (0-450); Eosinophils Percent Auto 2.7 % (2-4); Hematocrit 38.2 % (36-46); Hemoglobin 12.5 g/dL (12.0-16.0); Lymphocytes Absolute Auto 3500 /uL (1100-4500); Lymphocytes Percent Auto 17.2 % (25-40); Mean Corpuscular HGB Conc 32.8 % (30-36); Mean Corpuscular Hemoglobin 26.2 PG (26-34); Monocytes Absolute Auto 1600 /uL (0-900); Monocytes Percent Auto 7.9 % (3-14); Neutrophils Absolute Auto 14800 /uL (1500-7000); Neutrophils Percent Auto 71.7 % (50-75); Platelet Count 573 X10^3/uL (150-400); Red Blood Cell Count 4.77 X10^6/uL (4.0-5.2); Red Cell Distribution Width 15.8 % (11.6-14.8); White Blood Cell Count 20.6 X10^3/uL (4.5-11.0)
[2019-07-10 11:32] LABS: Erythrocyte Sedimentation Rate 18 MM/HR (0-20)
[2019-07-10 14:36] LABS: Hepatitis B Surface Antigen NEGATIVE s/c (NEGATIVE)
[2019-07-10 14:55] LABS: Hep C Virus Ab w/Reflex Quant NEGATIVE s/c (NEGATIVE)
[2019-07-10 15:10] LABS: Alanine Aminotransferase 17 IU/L (<35); Albumin 3.9 g/dL (3.5-5.0); Albumin Globulin Ratio 1.1 (1.0-2.8); Alkaline Phosphatase 186 U/L (38-126); Aspartate Aminotransferase 18 IU/L (14-36); BUN Creatinine Ratio 27.7 (6-22); Bilirubin Total 0.3 mg/dL (0.2-1.3); Blood Urea Nitrogen 13 mg/dL (7-17); C-Reactive Protein Quant 2.4 mg/dL (<1.0); Calcium 9.3 mg/dL (8.4-10.2); Carbon Dioxide 31 mmol/L (22-32); Chloride 97 mmol/L (98-107); Estimated Glomerular Filt Rate > 60.0 mL/min (>60); Globulin 3.4 g/dL (1.7-4.1); Glucose 130 mg/dL (80-110); HEMOLYSIS < 15 (0-50); Potassium 4.4 mmol/L (3.4-5.1); Sodium 137 mmol/L (137-145); Total Protein 7.3 g/dL (6.3-8.2)
[2019-07-10 15:13] LABS: Rheumatoid Factor < 8.6 IU/mL (<12.0)
[2019-07-11 02:32] LABS: RPR Screen Non Reactive (Non Reactive)
[2019-07-11 05:07] LABS: Complement C3 152 mg/dL (82-167)
[2019-07-11 17:36] LABS: ANA Screen, IFA Negative (.)
[2019-07-12 02:47] LABS: Complement Total CH50 > 60 U/mL (>41)
== END ==
PROVIDERS: PCP Nurse Practitioner Family; Referring Provider Family Medicine; Visit Provider Family Medicine
DX: L97.411 Non-pressure chronic ulcer of right heel and midfoot limited to breakdown of skin (principal); L97.511 Non-pressure chronic ulcer of other part of right foot limited to breakdown of skin; D72.829 Elevated white blood cell count, unspecified; R21 Rash and other nonspecific skin eruption; R23.1 Pallor
CPT/HCPCS: 36415; 80053; 82595; 85025; 85651; 86038; 86140; 86160; 86162; 86430; 86592; 86803; 87340

== ENCOUNTER → 2019-08-17 10:46 | Outpatient (CLI) | payer OTHER, MEDICAID, SELFPAY | PROVIDERS: PCP Nurse Practitioner Family; Referring Provider Nurse Practitioner Family; Visit Provider Family Medicine | DX: E11.621 Type 2 diabetes mellitus with foot ulcer (principal); E11.40 Type 2 diabetes mellitus with diabetic neuropathy, unspecified; L97.411 Non-pressure chronic ulcer of right heel and midfoot limited to breakdown of skin; L97.511 Non-pressure chronic ulcer of other part of right foot limited to breakdown of skin; L97.521 Non-pressure chronic ulcer of other part of left foot limited to breakdown of skin; R60.0 Localized edema | CPT/HCPCS: 87070; 87075; 87077; 87147; 87186; 87205 ==

== ENCOUNTER → 2019-08-24 16:12 | Outpatient (CLI) | payer OTHER, MEDICAID, SELFPAY | PROVIDERS: PCP Nurse Practitioner Family; Referring Provider Nurse Practitioner Family; Visit Provider Family Medicine | DX: E11.621 Type 2 diabetes mellitus with foot ulcer (principal); L97.411 Non-pressure chronic ulcer of right heel and midfoot limited to breakdown of skin; L97.511 Non-pressure chronic ulcer of other part of right foot limited to breakdown of skin; L97.521 Non-pressure chronic ulcer of other part of left foot limited to breakdown of skin | CPT/HCPCS: 11042; 11045; 97597 ==

== ENCOUNTER → 2019-08-30 14:11 | Outpatient (CLI) | payer OTHER, MEDICAID, SELFPAY | PROVIDERS: PCP Nurse Practitioner Family; Referring Provider Nurse Practitioner Family; Visit Provider Family Medicine | DX: E11.621 Type 2 diabetes mellitus with foot ulcer (principal); L97.411 Non-pressure chronic ulcer of right heel and midfoot limited to breakdown of skin; L97.511 Non-pressure chronic ulcer of other part of right foot limited to breakdown of skin; L97.521 Non-pressure chronic ulcer of other part of left foot limited to breakdown of skin; I70.293 Other atherosclerosis of native arteries of extremities, bilateral legs; I89.0 Lymphedema, not elsewhere classified; L08.9 Local infection of the skin and subcutaneous tissue, unspecified; R23.1 Pallor; R21 Rash and other nonspecific skin eruption; D89.2 Hypergammaglobulinemia, unspecified | CPT/HCPCS: 11042; 11045; 87070; 87075; 87077; 87147; 87186; 87205; 93923; 97597; 99212 ==

== ENCOUNTER → 2019-09-06 11:55 | Outpatient (CLI) | payer OTHER, MEDICAID, SELFPAY | PROVIDERS: PCP Nurse Practitioner Family; Referring Provider Nurse Practitioner Family; Visit Provider Family Medicine | DX: E11.621 Type 2 diabetes mellitus with foot ulcer (principal); L97.411 Non-pressure chronic ulcer of right heel and midfoot limited to breakdown of skin; L97.511 Non-pressure chronic ulcer of other part of right foot limited to breakdown of skin; L97.521 Non-pressure chronic ulcer of other part of left foot limited to breakdown of skin; I70.293 Other atherosclerosis of native arteries of extremities, bilateral legs; I89.0 Lymphedema, not elsewhere classified; L08.9 Local infection of the skin and subcutaneous tissue, unspecified; R23.1 Pallor; R21 Rash and other nonspecific skin eruption; D89.2 Hypergammaglobulinemia, unspecified; B95.62 Methicillin resistant Staphylococcus aureus infection as the cause of diseases classified elsewhere | CPT/HCPCS: 11042; 11045; 87070; 87077; 87102; 87186; 87205; 99212 ==

== ENCOUNTER → 2019-09-27 10:32 | Outpatient (CLI) | payer OTHER, MEDICAID, SELFPAY | PROVIDERS: PCP Nurse Practitioner Family; Referring Provider Nurse Practitioner Family; Visit Provider Family Medicine | DX: E11.621 Type 2 diabetes mellitus with foot ulcer (principal); L97.521 Non-pressure chronic ulcer of other part of left foot limited to breakdown of skin; L97.415 Non-pressure chronic ulcer of right heel and midfoot with muscle involvement without evidence of necrosis; L97.515 Non-pressure chronic ulcer of other part of right foot with muscle involvement without evidence of necrosis; I70.293 Other atherosclerosis of native arteries of extremities, bilateral legs; I89.0 Lymphedema, not elsewhere classified; L08.9 Local infection of the skin and subcutaneous tissue, unspecified; R23.1 Pallor; R21 Rash and other nonspecific skin eruption; D89.2 Hypergammaglobulinemia, unspecified; B95.62 Methicillin resistant Staphylococcus aureus infection as the cause of diseases classified elsewhere | CPT/HCPCS: 11042; 97597; 97598 ==

== ENCOUNTER → 2019-10-18 10:33 | Outpatient (CLI) | payer OTHER, MEDICAID, SELFPAY | PROVIDERS: PCP Nurse Practitioner Family; Referring Provider Nurse Practitioner Family; Visit Provider Family Medicine | DX: E11.621 Type 2 diabetes mellitus with foot ulcer (principal); L97.521 Non-pressure chronic ulcer of other part of left foot limited to breakdown of skin; L97.415 Non-pressure chronic ulcer of right heel and midfoot with muscle involvement without evidence of necrosis; L97.515 Non-pressure chronic ulcer of other part of right foot with muscle involvement without evidence of necrosis; I70.293 Other atherosclerosis of native arteries of extremities, bilateral legs; I89.0 Lymphedema, not elsewhere classified; L08.9 Local infection of the skin and subcutaneous tissue, unspecified; R23.1 Pallor; R21 Rash and other nonspecific skin eruption; D89.2 Hypergammaglobulinemia, unspecified; B95.62 Methicillin resistant Staphylococcus aureus infection as the cause of diseases classified elsewhere | CPT/HCPCS: 11042; 11045; 99213 ==

== ENCOUNTER → 2019-11-15 11:52 | Outpatient (CLI) | payer OTHER, MEDICAID, SELFPAY | PROVIDERS: PCP Nurse Practitioner Family; Referring Provider Nurse Practitioner Family; Visit Provider Family Medicine | DX: E11.621 Type 2 diabetes mellitus with foot ulcer (principal); L97.411 Non-pressure chronic ulcer of right heel and midfoot limited to breakdown of skin; L97.511 Non-pressure chronic ulcer of other part of right foot limited to breakdown of skin; E11.51 Type 2 diabetes mellitus with diabetic peripheral angiopathy without gangrene; L08.9 Local infection of the skin and subcutaneous tissue, unspecified; R21 Rash and other nonspecific skin eruption | CPT/HCPCS: 11042; 11045; 99213 ==

== ENCOUNTER → 2019-12-06 12:13 | Outpatient (CLI) | payer OTHER, MEDICAID, SELFPAY | PROVIDERS: PCP Nurse Practitioner Family; Referring Provider Nurse Practitioner Family; Visit Provider Family Medicine | DX: E11.621 Type 2 diabetes mellitus with foot ulcer (principal); L97.411 Non-pressure chronic ulcer of right heel and midfoot limited to breakdown of skin; L97.511 Non-pressure chronic ulcer of other part of right foot limited to breakdown of skin; R21 Rash and other nonspecific skin eruption | CPT/HCPCS: 11042; 11045; 36415; 82784; 82977; 84155; 84165; 86334; 87070; 87075; 87077; 87186; 87205; 99212 ==

== ENCOUNTER → 2019-12-06 12:23 | Outpatient (CLI) | payer OTHER, MEDICAID, SELFPAY ==
[2019-12-06 14:43] LABS: Gamma Glutamyl Transpeptidase 40 U/L (12-43)
[2019-12-08 15:11] LABS: Albumin 3.2 g/dL (2.9-4.4); Alpha-1-Globulin 0.4 g/dL (0.0-0.4); Alpha-2-Globulin 1.1 g/dL (0.4-1.0); Gamma Globulin 1.4 g/dL (0.4-1.8); Globulin Total 4.1 g/dL (2.2-3.9); Immunoglobulin A, Serum 353 mg/dL (87-352); Immunoglobulin G,Serum 1454 mg/dL (586-1602); Immunoglobulin M, Serum 44 mg/dL (26-217); Protein, Total 7.3 g/dL (6.0-8.5)
== END ==
PROVIDERS: PCP Nurse Practitioner Family; Referring Provider Family Medicine; Visit Provider Family Medicine
DX: R74.8 Abnormal levels of other serum enzymes (principal); D89.2 Hypergammaglobulinemia, unspecified
CPT/HCPCS: 36415; 82784; 82977; 84155; 84165; 86334

== ENCOUNTER → 2019-12-27 11:47 | Outpatient (CLI) | payer OTHER, MEDICAID, SELFPAY | PROVIDERS: PCP Nurse Practitioner Family; Referring Provider Nurse Practitioner Family; Visit Provider Family Medicine | DX: E11.621 Type 2 diabetes mellitus with foot ulcer (principal); L97.411 Non-pressure chronic ulcer of right heel and midfoot limited to breakdown of skin; L97.511 Non-pressure chronic ulcer of other part of right foot limited to breakdown of skin; L08.9 Local infection of the skin and subcutaneous tissue, unspecified; R21 Rash and other nonspecific skin eruption | CPT/HCPCS: 11042; 11045; 99214 ==

== ENCOUNTER → 2020-01-17 11:54 | Outpatient (CLI) | payer OTHER, MEDICAID, SELFPAY | PROVIDERS: PCP Nurse Practitioner Family; Referring Provider Nurse Practitioner Family; Visit Provider Family Medicine | DX: E11.621 Type 2 diabetes mellitus with foot ulcer (principal); L97.411 Non-pressure chronic ulcer of right heel and midfoot limited to breakdown of skin; L97.511 Non-pressure chronic ulcer of other part of right foot limited to breakdown of skin; L08.9 Local infection of the skin and subcutaneous tissue, unspecified; R21 Rash and other nonspecific skin eruption | CPT/HCPCS: 11042; 11045 ==

== ENCOUNTER → 2020-02-07 11:26 | Outpatient (CLI) | payer OTHER, MEDICAID, SELFPAY | PROVIDERS: PCP Nurse Practitioner Family; Referring Provider Nurse Practitioner Family; Visit Provider Family Medicine | DX: E11.621 Type 2 diabetes mellitus with foot ulcer (principal); L97.411 Non-pressure chronic ulcer of right heel and midfoot limited to breakdown of skin; L97.511 Non-pressure chronic ulcer of other part of right foot limited to breakdown of skin; L08.9 Local infection of the skin and subcutaneous tissue, unspecified; R21 Rash and other nonspecific skin eruption | CPT/HCPCS: 11042; 11045; 87070; 87075; 87205 ==

== ENCOUNTER → 2020-03-06 12:22 | Outpatient (CLI) | payer OTHER, MEDICAID, SELFPAY | PROVIDERS: PCP Nurse Practitioner Family; Referring Provider Nurse Practitioner Family; Visit Provider Family Medicine | DX: E11.621 Type 2 diabetes mellitus with foot ulcer (principal); L97.411 Non-pressure chronic ulcer of right heel and midfoot limited to breakdown of skin; L97.511 Non-pressure chronic ulcer of other part of right foot limited to breakdown of skin; L08.9 Local infection of the skin and subcutaneous tissue, unspecified; R21 Rash and other nonspecific skin eruption | CPT/HCPCS: 11042; 11045 ==

== ENCOUNTER → 2020-04-01 11:36 | Outpatient (CLI) | payer OTHER, MEDICAID, SELFPAY | PROVIDERS: PCP Nurse Practitioner Family; Referring Provider Nurse Practitioner Family; Visit Provider Family Medicine | DX: E11.621 Type 2 diabetes mellitus with foot ulcer (principal); L97.411 Non-pressure chronic ulcer of right heel and midfoot limited to breakdown of skin; L97.511 Non-pressure chronic ulcer of other part of right foot limited to breakdown of skin; I70.293 Other atherosclerosis of native arteries of extremities, bilateral legs; I89.0 Lymphedema, not elsewhere classified; L08.9 Local infection of the skin and subcutaneous tissue, unspecified; E11.51 Type 2 diabetes mellitus with diabetic peripheral angiopathy without gangrene; E11.40 Type 2 diabetes mellitus with diabetic neuropathy, unspecified; R21 Rash and other nonspecific skin eruption | CPT/HCPCS: 11042; 11104; 99213 ==

== ENCOUNTER → 2020-04-15 11:03 | Outpatient (CLI) | payer OTHER, MEDICAID, SELFPAY | PROVIDERS: PCP Nurse Practitioner Family; Referring Provider Nurse Practitioner Family; Visit Provider Family Medicine | DX: E11.621 Type 2 diabetes mellitus with foot ulcer (principal); L97.411 Non-pressure chronic ulcer of right heel and midfoot limited to breakdown of skin; L97.511 Non-pressure chronic ulcer of other part of right foot limited to breakdown of skin; I89.0 Lymphedema, not elsewhere classified; R21 Rash and other nonspecific skin eruption; I87.2 Venous insufficiency (chronic) (peripheral); E11.40 Type 2 diabetes mellitus with diabetic neuropathy, unspecified | CPT/HCPCS: 11042; 11045; 99214 ==

== ENCOUNTER → 2020-05-13 11:54 | Outpatient (CLI) | payer OTHER, MEDICAID, SELFPAY | PROVIDERS: PCP Nurse Practitioner Family; Referring Provider Nurse Practitioner Family; Visit Provider Family Medicine | DX: I70.293 Other atherosclerosis of native arteries of extremities, bilateral legs (principal); I89.0 Lymphedema, not elsewhere classified; E11.621 Type 2 diabetes mellitus with foot ulcer; I87.2 Venous insufficiency (chronic) (peripheral); D72.829 Elevated white blood cell count, unspecified; D89.2 Hypergammaglobulinemia, unspecified; R74.8 Abnormal levels of other serum enzymes; L97.412 Non-pressure chronic ulcer of right heel and midfoot with fat layer exposed; L97.512 Non-pressure chronic ulcer of other part of right foot with fat layer exposed; L97.522 Non-pressure chronic ulcer of other part of left foot with fat layer exposed; L97.422 Non-pressure chronic ulcer of left heel and midfoot with fat layer exposed; Z99.3 Dependence on wheelchair | CPT/HCPCS: 11042; 11045; 99213; 99214 ==

== ENCOUNTER → 2020-06-26 11:24 | Outpatient (CLI) | payer OTHER, MEDICAID, SELFPAY | PROVIDERS: PCP Nurse Practitioner Family; Referring Provider Nurse Practitioner Family; Visit Provider Family Medicine | DX: I70.293 Other atherosclerosis of native arteries of extremities, bilateral legs (principal); I89.0 Lymphedema, not elsewhere classified; I87.2 Venous insufficiency (chronic) (peripheral); D89.2 Hypergammaglobulinemia, unspecified; R74.8 Abnormal levels of other serum enzymes; E11.621 Type 2 diabetes mellitus with foot ulcer; L97.412 Non-pressure chronic ulcer of right heel and midfoot with fat layer exposed; L97.512 Non-pressure chronic ulcer of other part of right foot with fat layer exposed; L97.522 Non-pressure chronic ulcer of other part of left foot with fat layer exposed; L97.422 Non-pressure chronic ulcer of left heel and midfoot with fat layer exposed; B37.2 Candidiasis of skin and nail; B95.61 Methicillin susceptible Staphylococcus aureus infection as the cause of diseases classified elsewhere; B96.5 Pseudomonas (aeruginosa) (mallei) (pseudomallei) as the cause of diseases classified elsewhere; L08.9 Local infection of the skin and subcutaneous tissue, unspecified | CPT/HCPCS: 11042; 11045; 99214 ==

== ENCOUNTER 2020-07-08 12:25 | Inpatient (IN) | payer MEDICAID, SELFPAY ==
[2020-07-08] VITALS (20 sets, daily range): BP systolic 98–135; BP diastolic 53–76; PULSE 91–100; RESP 18–40; TEMP 36.4–36.7; O2SAT 88–99; BMI 39.2
--- NOTE | 2020-07-08 12:43 | DI.RAD.S_ITS ---
PROCEDURE: XR CHEST 1V INDICATIONS: suspected sepsis TECHNIQUE: One view of the chest was acquired. COMPARISON: [facility], , CHEST 1 VIEW, 09/03/2015, 12:05. [facility], , CHEST 1 VIEW, 06/16/2015, 13:01. FINDINGS: Surgical changes and devices: None. Lungs and pleura: Infiltrates in right lung consistent with pneumonia. No pleural effusions or pneumothorax. Mediastinum: Mediastinal contours appear normal. Heart size is normal. Bones and chest wall: No suspicious bony lesions. Overlying soft tissues appear unremarkable. IMPRESSION: Right side pneumonia Dictated by: Donita Wright M.D. on 07/08/2020 at 13:06 Approved by: Donita Wright M.D. on 07/08/2020 at 13:07
[2020-07-08 13:12] LABS: Add Manual Diff / Slide Review NO; Basophils Absolute Auto 100 /uL (0-100); Basophils Percent Auto 0.4 % (0-2); Eosinophils Absolute Auto 400 /uL (0-450); Eosinophils Percent Auto 1.4 % (2-4); Hematocrit 31.2 % (36-46); Hemoglobin 9.5 g/dL (12.0-16.0); Lymphocytes Absolute Auto 3100 /uL (1100-4500); Lymphocytes Percent Auto 9.5 % (25-40); Mean Corpuscular HGB Conc 30.6 % (30-36); Mean Corpuscular Hemoglobin 23.3 PG (26-34); Mean Corpuscular Volume 76.3 fL (80-100); Monocytes Absolute Auto 2400 /uL (0-900); Monocytes Percent Auto 7.4 % (3-14); Neutrophils Absolute Auto 26300 /uL (1500-7000); Neutrophils Percent Auto 81.3 % (50-75); Platelet Count 543 X10^3/uL (150-400); Red Blood Cell Count 4.09 X10^6/uL (4.0-5.2); Red Cell Distribution Width 16.5 % (11.6-14.8)
[2020-07-08 13:13] LABS: INR 1.2 (0.9-1.3); Prothrombin Time 13.3 SECONDS (10.1-12.7)
[2020-07-08 13:14] LABS: White Blood Cell Count 32.3 X10^3/uL (4.5-11.0)
[2020-07-08 13:16] LABS: PTT Partial Thromboplastin Tim 34 SECONDS (26.4-36.2)
--- NOTE | 2020-07-08 13:18 | ED.GENADULT ---
HPI - General Adult General Chief complaint: Weakness Stated complaint: possibly septic,send by MD Time Seen by Provider: 07/08/20 13:17 Source: patient and family Mode of arrival: Wheelchair Limitations: no limitations History of Present Illness HPI narrative: 60-year-old woman with multiple medical problems including diabetes, prior stroke, vasculopathy, hypertension, hyperlipidemia, chronic foot wounds followed by wound care, urinary incontinence, presents with increasing weakness over the last 48 hours to the point where she is unable to get out of bed. She does not complain of being short of breath however she is significantly tachypneic at a rate of 30 and unable to speak in full sentences and when this is pointed out she does note that it has been a bit more difficulty speaking over the last day or so. Her wound care nurse and caregivers have wanted her to come in for the last 48 hours but she has declined. Apparently she had a near syncopal episode on Wednesday. Caregivers mentally called her daughter who brought her from [facility] for further evaluation. She notes she has significant peripheral neuropathy so does not complain of any pain with the wounds on her feet, she denies fever, she notes that she vomits regularly but it was significantly worse yesterday and is worse when she is laying flat. She does not complain of feeling short of breath, chest pain. She does not report significant cough, abdominal pain, dysuria, flank pain. It is unclear how close to her cognitive baseline she is and, she clearly has very little insight into overall health issues. Related Data Home Medications Medication Instructions Recorded Confirmed acetaminophen [Tylenol Extra 1 - 2 tab PO PRN PRN #0 12/28/16 07/08/20 Strength] cyclobenzaprine 10 mg PO BID #0 12/28/16 07/08/20 furosemide 20 mg PO QDAY #0 12/28/16 07/08/20 meloxicam 15 mg PO QPM #0 12/28/16 07/08/20 atorvastatin 80 mg PO DAILY 07/08/20 07/08/20 citalopram 40 mg PO DAILY 07/08/20 07/08/20 clopidogrel 75 mg PO DAILY 07/08/20 07/08/20 insulin glargine [Lantus Solostar 55 unit SUBCUT BID 07/08/20 07/08/20 U-100 Insulin] liraglutide [Victoza 3-Nicho] 1.8 mg SUBCUT QWEEK 07/08/20 07/08/20 losartan 25 mg PO DAILY 07/08/20 07/08/20 meclizine 25 mg PO TID PRN 07/08/20 07/08/20 oxybutynin chloride 5 mg PO QPM 07/08/20 07/08/20 pantoprazole 40 mg PO QAM 07/08/20 07/08/20 zolpidem 10 mg PO QPM 07/08/20 07/08/20 Allergies Allergy/AdvReac Type Severity Reaction Status Date / Time Sulfa (Sulfonamide Allergy Intermediate RASH Verified 07/08/20 12:43 Antibiotics) hydrocodone Allergy Unknown ITCH Verified 07/08/20 12:43 Review of Systems Review of Systems ROS Unobtainable: All systems reviewed & are unremarkable except as noted in HPI and below Patient History Medical History Diabetes Peripheral neuropathy TIA (transient ischemic attack) Social History Smoking Status: Current every day smoker Smoking Status: Current every day smoker alcohol intake frequency: 0-2 drinks per day Substance Use Type: does not use Exam Narrative Exam Narrative: General: Generally ill-appearing, tachypneic, speaking in 3-4 word sentences minimal insight into overall events HEENT: Moist mucous membranes, normal sclera with reactive pupils, Neck: No JVD, supple Respiratory: Lungs with pulmonary noise is difficult to fully auscultate due to body habitus but no obvious rhonchi or wheeze. Cardiac: Tachycardic but otherwise Regular rate and rhythm no murmurs no bruits Abdomen: Obese, Soft, nontender, good bowel tones, no flank pain Skin: Pale, excoriated areas over the lower extremities. Wound right lateral heel with some debris at the base but no obvious erythema. Wounds between the toes dressed by Wound Care chronic no obvious infection. Similar findings to toes on the left foot and small almost healed ulcer on the lateral aspect of the left heel Neurologic: Globally weak, slightly confused Extremities: No trauma, 2+ lower extremity edema Psych: Cooperative, fluent speech, no obvious auditory or visual hallucinations Initial Vital Signs Initial Vital Signs: Vital Signs Temperature 98.0 F 07/08/20 12:25 Pulse Rate 99 H 07/08/20 12:25 Respiratory Rate 32 H 07/08/20 12:25 Blood Pressure 134/66 07/08/20 12:25 Pulse Oximetry 94 07/08/20 12:25 Course Orders Ordered: ED Orders 07/08/20 12:43 XR chest 1V Stat EKG-12 Lead Stat RT Consult Eval and Treat Now 07/08/20 12:50 Complete Blood Count AUTO DIFF Stat Comprehensive Metabolic Panel Stat Lactate (Lactic Acid) Stat Lipase Stat NT-proBNP (BNP-Adult 18+) Stat Partial Thromboplastin Time Stat Procalcitonin Stat Prothrombin Time INR Stat Troponin & CK Cardiac Panel Stat 07/08/20 13:05 COVID19 - ADMIT (REGULATORY PRODUCT MANAGER swab/PCR) Stat 07/08/20 13:19 Blood Culture Stat 07/08/20 13:29 Urinalysis and Microscopic Stat Sodium Chloride (Normal Saline 0.9%) 3,111 mls @ 1,037 mls/hr 30 ml/kg infuse over 3 hr (3111 ml) IV NOW ONE Stop: 07/08/20 16:18 Last Infusion: 07/08/20 13:49 Dose: 999 mls/hr Documented by: Admin: 07/08/20 13:44 Dose: 1,037 mls/hr Documented by: LISETH Discontinued Medications Piperacillin/Tazobactam/Dextrose (Zosyn) 4.5 gm in 100 mls @ 200 mls/hr IV NOW ONE Stop: 07/08/20 13:48 Last Infusion: 07/08/20 14:01 Dose: 0 mls/hr Documented by: Admin: 07/08/20 13:30 Dose: 200 mls/hr Documented by: MELYSSA Vancomycin HCl (Vancomycin) 1,000 mg in 200 mls @ 200 mls/hr IV NOW ONE Stop: 07/08/20 14:18 Last Admin: 07/08/20 13:47 Dose: 200 mls/hr Documented by: LISETH Vital Signs Vital signs: Vital Signs - 8 hr 07/08/20 12:25 07/08/20 12:41 07/08/20 12:45 Temperature 98.0 F Pulse Rate 99 H 100 H 99 H Respiratory Rate 32 H 31 H 34 H Blood Pressure 134/66 Pulse Oximetry 94 94 93 07/08/20 12:58 07/08/20 13:00 07/08/20 13:15 Temperature Pulse Rate 96 H 94 H Respiratory Rate 29 H 29 H Blood Pressure 116/61 Pulse Oximetry 88 L 89 L 92 07/08/20 13:30 07/08/20 13:45 07/08/20 13:54 Temperature Pulse Rate 96 H 97 H 97 H Respiratory Rate 37 H 34 H 40 H Blood Pressure 113/55 L Pulse Oximetry 96 96 90 L 07/08/20 14:00 07/08/20 14:15 Temperature Pulse Rate 96 H 97 H Respiratory Rate 29 H 28 H Blood Pressure 115/63 98/53 L Pulse Oximetry 90 L 92 Medical Decision Making Medical Records Medical records reviewed: Yes I reviewed the patient's medical records. Lab Data Lab results reviewed: Yes I reviewed the patient's lab results. Result diagrams: 07/08/20 12:50 07/08/20 12:50 Labs: Lab Results 07/08/20 07/08/20 07/08/20 Range/Units 12:50 12:50 12:50 WBC 32.3 H* (4.5-11.0) X10^3/uL RBC 4.09 (4.0-5.2) X10^6/uL Hgb 9.5 L (12.0-16.0) g/dL Hct 31.2 L (36-46) % MCV 76.3 L (80-100) fL MCH 23.3 L (26-34) PG MCHC 30.6 (30-36) % RDW 16.5 H (11.6-14.8) % Plt Count 543 H (150-400) X10^3/uL Neut % (Auto) 81.3 H (50-75) % Lymph % (Auto) 9.5 L (25-40) % Ritchie % (Auto) 7.4 (3-14) % Eos % (Auto) 1.4 L (2-4) % Baso % (Auto) 0.4 (0-2) % Neut # (Auto) 59693 H (4870-9244) /uL Lymph # (Auto) 3100 (1080-5561) /uL Ritchie # (Auto) 2400 H (0-900) /uL Eos # (Auto) 400 (0-450) /uL Baso # (Auto) 100 (0-100) /uL PT 13.3 H (10.1-12.7) SECONDS INR 1.2 (0.9-1.3) APTT 34 (26.4-36.2) SECONDS Sodium 135 L (137-145) mmol/L Potassium 4.1 (3.4-5.1) mmol/L Chloride 97 L (98-107) mmol/L Carbon Dioxide 31 (22-32) mmol/L BUN 17 (7-17) mg/dL Creatinine 0.56 (0.52-1.04) mg/dL Estimated GFR > 60.0 (>60) mL/min BUN/Creatinine Ratio 30.4 H (6-22) Glucose 78 L (80-110) mg/dL Lactate (0.7-2.1) mmol/L Calcium 9.7 (8.4-10.2) mg/dL Total Bilirubin 0.7 (0.2-1.3) mg/dL AST 17 (14-36) IU/L ALT 13 (<35) IU/L Alkaline Phosphatase 134 H (38-126) U/L Total Creatine Kinase (30-135) U/L CK-MB (CK-2) CK-MB (CK-2) Rel Index Troponin I (0.01-0.034) ng/mL NT-Pro-B Natriuret Pep (<125) pg/mL Total Protein 7.1 (6.3-8.2) g/dL Albumin 3.7 (3.5-5.0) g/dL Globulin 3.4 (1.7-4.1) g/dL Albumin/Globulin Ratio 1.1 (1.0-2.8) Lipase 10 L (23-300) U/L Procalcitonin 0.24 (<0.5) ng/mL Urine Color Urine Appearance Urine pH (4.5-8.0) Ur Specific Fred (1.000-1.035) Urine Protein (Negative) Urine Glucose (UA) (Negative) g/dL Urine Ketones (NEGATIVE) Urine Occult Blood (Negative) Urine Nitrate (Negative) Urine Bilirubin (NEGATIVE) Urine Urobilinogen (0.2) E.U./dL Ur Leukocyte Esterase (NEGATIVE) Urine RBC (0-5/HPF) Urine WBC (0-5/HPF) Ur Squamous Epith Cells (0-5/HPF) Urine Bacteria (None) Ur Culture Indicated? SARS-CoV-2 (PCR) (Negative) 07/08/20 07/08/20 07/08/20 Range/Units 12:50 12:50 13:05 WBC (4.5-11.0) X10^3/uL RBC (4.0-5.2) X10^6/uL Hgb (12.0-16.0) g/dL Hct (36-46) % MCV (80-100) fL MCH (26-34) PG MCHC (30-36) % RDW (11.6-14.8) % Plt Count (150-400) X10^3/uL Neut % (Auto) (50-75) % Lymph % (Auto) (25-40) % Ritchie % (Auto) (3-14) % Eos % (Auto) (2-4) % Baso % (Auto) (0-2) % Neut # (Auto) (4091-9061) /uL Lymph # (Auto) (6633-8626) /uL Ritchie # (Auto) (0-900) /uL Eos # (Auto) (0-450) /uL Baso # (Auto) (0-100) /uL PT (10.1-12.7) SECONDS INR (0.9-1.3) APTT (26.4-36.2) SECONDS Sodium (137-145) mmol/L Potassium (3.4-5.1) mmol/L Chloride (98-107) mmol/L Carbon Dioxide (22-32) mmol/L BUN (7-17) mg/dL Creatinine (0.52-1.04) mg/dL Estimated GFR (>60) mL/min BUN/Creatinine Ratio (6-22) Glucose (80-110) mg/dL Lactate 1.4 (0.7-2.1) mmol/L Calcium (8.4-10.2) mg/dL Total Bilirubin (0.2-1.3) mg/dL AST (14-36) IU/L ALT (<35) IU/L Alkaline Phosphatase (38-126) U/L Total Creatine Kinase 36 (30-135) U/L CK-MB (CK-2) TNP CK-MB (CK-2) Rel Index TNP Troponin I < 0.012 (0.01-0.034) ng/mL NT-Pro-B Natriuret Pep 577 H (<125) pg/mL Total Protein (6.3-8.2) g/dL Albumin (3.5-5.0) g/dL Globulin (1.7-4.1) g/dL Albumin/Globulin Ratio (1.0-2.8) Lipase (23-300) U/L Procalcitonin (<0.5) ng/mL Urine Color Urine Appearance Urine pH (4.5-8.0) Ur Specific Fred (1.000-1.035) Urine Protein (Negative) Urine Glucose (UA) (Negative) g/dL Urine Ketones (NEGATIVE) Urine Occult Blood (Negative) Urine Nitrate (Negative) Urine Bilirubin (NEGATIVE) Urine Urobilinogen (0.2) E.U./dL Ur Leukocyte Esterase (NEGATIVE) Urine RBC (0-5/HPF) Urine WBC (0-5/HPF) Ur Squamous Epith Cells (0-5/HPF) Urine Bacteria (None) Ur Culture Indicated? SARS-CoV-2 (PCR) Negative (Negative) 07/08/20 Range/Units 13:29 WBC (4.5-11.0) X10^3/uL RBC (4.0-5.2) X10^6/uL Hgb (12.0-16.0) g/dL Hct (36-46) % MCV (80-100) fL MCH (26-34) PG MCHC (30-36) % RDW (11.6-14.8) % Plt Count (150-400) X10^3/uL Neut % (Auto) (50-75) % Lymph % (Auto) (25-40) % Ritchie % (Auto) (3-14) % Eos % (Auto) (2-4) % Baso % (Auto) (0-2) % Neut # (Auto) (9137-8477) /uL Lymph # (Auto) (2538-4206) /uL Ritchie # (Auto) (0-900) /uL Eos # (Auto) (0-450) /uL Baso # (Auto) (0-100) /uL PT (10.1-12.7) SECONDS INR (0.9-1.3) APTT (26.4-36.2) SECONDS Sodium (137-145) mmol/L Potassium (3.4-5.1) mmol/L Chloride (98-107) mmol/L Carbon Dioxide (22-32) mmol/L BUN (7-17) mg/dL Creatinine (0.52-1.04) mg/dL Estimated GFR (>60) mL/min BUN/Creatinine Ratio (6-22) Glucose (80-110) mg/dL Lactate (0.7-2.1) mmol/L Calcium (8.4-10.2) mg/dL Total Bilirubin (0.2-1.3) mg/dL AST (14-36) IU/L ALT (<35) IU/L Alkaline Phosphatase (38-126) U/L Total Creatine Kinase (30-135) U/L CK-MB (CK-2) CK-MB (CK-2) Rel Index Troponin I (0.01-0.034) ng/mL NT-Pro-B Natriuret Pep (<125) pg/mL Total Protein (6.3-8.2) g/dL Albumin (3.5-5.0) g/dL Globulin (1.7-4.1) g/dL Albumin/Globulin Ratio (1.0-2.8) Lipase (23-300) U/L Procalcitonin (<0.5) ng/mL Urine Color Yellow Urine Appearance Sl cloudy Urine pH 5.0 (4.5-8.0) Ur Specific Fred 1.015 (1.000-1.035) Urine Protein 2+ H (Negative) Urine Glucose (UA) Negative (Negative) g/dL Urine Ketones Negative (NEGATIVE) Urine Occult Blood Negative (Negative) Urine Nitrate Negative (Negative) Urine Bilirubin Negative (NEGATIVE) Urine Urobilinogen 0.2 (0.2) E.U./dL Ur Leukocyte Esterase Negative (NEGATIVE) Urine RBC None seen (0-5/HPF) Urine WBC 0-1/hpf (0-5/HPF) Ur Squamous Epith Cells 0-1 /hpf (0-5/HPF) Urine Bacteria Few (2-10) H (None) Ur Culture Indicated? Cult not indicated SARS-CoV-2 (PCR) (Negative) Imaging Data Chest x-ray: Radiologist's Impression: FINDINGS: Surgical changes and devices: None. Lungs and pleura: Infiltrates in right lung consistent with pneumonia. No pleural effusions or pneumothorax. Mediastinum: Mediastinal contours appear normal. Heart size is normal. Bones and chest wall: No suspicious bony lesions. Overlying soft tissues appear unremarkable. IMPRESSION: Right side pneumonia Dictated by: Donita Wright M.D. on 07/08/2020 at 13:06 ECG Data Attestation: I personally reviewed and interpreted this ECG as follows: Interpretation: Sinus rhythm at a rate of 99 Normal axis, normal intervals No acute ischemic changes MDM Narrative Medical decision making narrative: 60-year-old woman with multiple chronic medical problems presents with increasing weakness probable confusion significant leukocytosis increasing tachypnea. Significant vomiting yesterday which she describes as close to her baseline. I suspect that she actually is developing a aspiration pneumonia. Lactic acid is normal however she is at significant risk for sepsis. Have begun fluid resuscitation and vancomycin as well as Zosyn. I do not suspect a bladder infection and do not suspect significant infection from her chronic heel and toe wounds. She does have a history of congestive heart failure and does appear to be volume down at this time. Will need hospital admission for presumed aspiration pneumonia, concern for developing pneumonia with global weakness . Care is reviewed with Dr. Davis who accepts the admission. Discharge Plan Departure Patient Disposition: Admitted As Inpatient Clinical Impression: Pneumonia Qualifiers: Pneumonia type: aspiration pneumonia Aspiration pneumonia type: unspecified Laterality: right Lung location: unspecified part of lung Qualified Code(s): J69.0 - Pneumonitis due to inhalation of food and vomit Diabetes Qualifiers: Diabetes mellitus type: type 2 Diabetes mellitus long term acute care registered nurse insulin use: unspecified long term acute care registered nurse insulin use status Hypertension Qualifiers: Hypertension type: essential hypertension Qualified Code(s): I10 - Essential (primary) hypertension Hyperlipidemia Qualifiers: Hyperlipidemia type: unspecified Qualified Code(s): E78.5 - Hyperlipidemia, unspecified CHF (congestive heart failure) Qualifiers: Heart failure type: other Qualified Code(s): I50.9 - Heart failure, unspecified Admit Date/Time: 07/08/20 14:53 Admit Provider: Rafael Mccoy
[2020-07-08 13:19] LABS: Lactate (Lactic Acid) 1.4 mmol/L (0.7-2.1)
[2020-07-08 13:20] LABS: Creatine Kinase 36 U/L (30-135)
[2020-07-08 13:21] LABS: Alanine Aminotransferase 13 IU/L (<35); Albumin 3.7 g/dL (3.5-5.0); Albumin Globulin Ratio 1.1 (1.0-2.8); Alkaline Phosphatase 134 U/L (38-126); Aspartate Aminotransferase 17 IU/L (14-36); BUN Creatinine Ratio 30.4 (6-22); Bilirubin Total 0.7 mg/dL (0.2-1.3); Blood Urea Nitrogen 17 mg/dL (7-17); Calcium 9.7 mg/dL (8.4-10.2); Carbon Dioxide 31 mmol/L (22-32); Chloride 97 mmol/L (98-107); Estimated Glomerular Filt Rate > 60.0 mL/min (>60); Globulin 3.4 g/dL (1.7-4.1); Glucose 78 mg/dL (80-110); HEMOLYSIS < 15 (0-50); Lipase 10 U/L (23-300); Potassium 4.1 mmol/L (3.4-5.1); Sodium 135 mmol/L (137-145); Total Protein 7.1 g/dL (6.3-8.2)
[2020-07-08] MEDS: PIPERACILLIN-TAZO 4.5 GM/100 ML FROZ.PIGGY IV (13:30)
--- NOTE | 2020-07-08 13:30 | PC.NURSE ---
skin in groin / edmond area red, excoriated, warm to the touch extending 3-4 inches from edmond area. Pt states they have been using desitin and nystatin cream. Pt states does not feel any worse / more painful than usual. Caregiver present states it appears normal for her.
[2020-07-08 13:32] LABS: NT-proBNP (BNP-Adult 18+) 577 pg/mL (<125); Troponin I < 0.012 ng/mL (0.01-0.034)
[2020-07-08 13:32] LABS: RBC Urine None Seen (0-5/HPF)
[2020-07-08 13:33] LABS: Appearance Urine UA SL CLOUDY; Bilirubin Urine UA NEGATIVE (NEGATIVE); Color Urine UA YELLOW; Glucose Urine UA NEGATIVE (Negative); Ketones Urine UA NEGATIVE (NEGATIVE); Leukocyte Esterase Urine UA NEGATIVE (NEGATIVE); Nitrite Urine UA NEGATIVE (Negative); Occult Blood Urine UA NEGATIVE (Negative); Protein Urine UA 2+ (Negative); Specific Gravity Urine UA 1.015 (1.000-1.035); Urobilinogen Urine UA 0.2 E.U./dL (0.2)
[2020-07-08 13:37] LABS: Procalcitonin 0.24 ng/mL (<0.5)
[2020-07-08] MEDS: SODIUM CHLORIDE 0.9% 1037 ML IV (13:44)
[2020-07-08 13:47] LABS: Bacteria Urine Few (2-10); Culture Indicated Urine Cult Not Indicated; Squamous Epithelial Cell Urine 0-1 /HPF (0-5/HPF); WBC Urine 0-1/HPF (0-5/HPF)
[2020-07-08] MEDS: VANCOMYCIN 1,000 MG/200 ML PIGGYBACK 200 MG IV (13:47)
[2020-07-08 14:21] LABS: COVID19 - ADMIT (NP swab/PCR) Negative (Negative)
--- NOTE | 2020-07-08 17:05 | PM.HP.1 ---
History of Present Illness History of Present Illness Date Patient Seen: 07/08/20 Time Patient Seen: 17:05 Chief complaint: possibly septic,send by Narrative: Ariana Causey is a 60-year-old female with past medical history of morbid obesity, type 2 diabetes with chronic foot wounds followed by wound care, peripheral vascular disease, prior CVA, probable COPD, and active smoker who presented to the emergency room with increasing weakness over the past 48 hours. She states that she is unable to get out of her bed recently. At her baseline she is usually able to get into a wheelchair, but not much more than this. She states that her house is a mess in an is difficult to get around in. Patient denies shortness of breath and states that her current speech pattern is typical for her after her stroke, although she states it has been a little bit more difficult to speak over the past day, but she is unable to further expound on this feeling. Her wound care nursing caregivers wanted her to come in for the prior 2 days. She reports vomiting yesterday morning, but no nausea, or abdominal pain. The caregivers called her daughter who brought her from [place] where she lives. Her shortness of breath is worse when lying flat. She denies any chest pain, palpitations, abdominal pain, dysuria, cough. The patient has chronic issues with swallowing and states that she mostly follows her recommendations from speech therapists. In the emergency room, the patient was borderline hypotensive but did respond to 1 L fluid bolus. She was afebrile, but borderline tachycardic and tachypneic as high as a respiratory rate of 40. She had O2 saturations that dropped to 89% on 2 L, this was increased to 4 L with improvement in her O2 saturations. Initial laboratory evaluation revealed a leukocytosis of 32.3 K, hemoglobin of 9.5, platelet of 543. Coagulation studies were unremarkable. Chemistries were unremarkable. Troponin was negative. ProBNP was mildly elevated at 577, procalcitonin was indeterminate at 0.24. Urinalysis was not indicative of an infection. Chest x-ray showed a right-sided infiltrate consistent with pneumonia. COVID-19 testing was negative. Upon arrival to the hospital floor the patient was still having 1-2 word dyspnea when speaking, but she did not complain of shortness of breath. Her pulse oximetry showed a very poor waveform, during periods of adequate waveform she was noted to not require supplemental oxygen to maintain oxygen saturations of above 88%. She did, however, desaturate to 85% but she had a poor waveform at those times. Patient was admitted to Medicine under observation for probable aspiration pneumonia. Patient History Medical History CHF (congestive heart failure) Diabetes Hyperlipidemia Hypertension Peripheral neuropathy PVD (peripheral vascular disease) TIA (transient ischemic attack) Surgical History H/O angioplasty Family & Social History Safety & Behavioral: Feels Safe in Current Yes Environment Been Physically Hurt or No Threatened By a Person Tobacco & Substance use: Smoking Status Current every day smoker alcohol intake frequency 0-2 drinks per day Substance Use Type does not use Meds Home Medications and Allergies Home Medications Medication Instructions Recorded Confirmed Type acetaminophen [Tylenol Extra 1 - 2 tab PO PRN PRN #0 12/28/16 07/08/20 History Strength] cyclobenzaprine 10 mg PO BID #0 12/28/16 07/08/20 History furosemide 20 mg PO QDAY #0 12/28/16 07/08/20 History meloxicam 15 mg PO QPM #0 12/28/16 07/08/20 History atorvastatin 80 mg PO DAILY 07/08/20 07/08/20 History citalopram 40 mg PO DAILY 07/08/20 07/08/20 History clopidogrel 75 mg PO DAILY 07/08/20 07/08/20 History insulin glargine [Lantus Solostar 55 unit SUBCUT BID 07/08/20 07/08/20 History U-100 Insulin] liraglutide [Victoza 3-Nicho] 1.8 mg SUBCUT QWEEK 07/08/20 07/08/20 History losartan 25 mg PO DAILY 07/08/20 07/08/20 History meclizine 25 mg PO TID PRN 07/08/20 07/08/20 History oxybutynin chloride 5 mg PO QPM 07/08/20 07/08/20 History pantoprazole 40 mg PO QAM 07/08/20 07/08/20 History zolpidem 10 mg PO QPM 07/08/20 07/08/20 History Allergies Allergy/AdvReac Type Severity Reaction Status Date / Time Sulfa (Sulfonamide Allergy Intermediate RASH Verified 07/08/20 12:43 Antibiotics) hydrocodone Allergy Unknown ITCH Verified 07/08/20 12:43 Review of Systems Review of Systems Narrative: All other systems reviewed with the patient and are negative unless otherwise stated. Exam Vital Signs (past 8 hours): - 07/08/20 12:25 07/08/20 12:41 07/08/20 12:45 Temperature 98.0 F Pulse Rate 99 H 100 H 99 H Respiratory Rate 32 H 31 H 34 H Blood Pressure 134/66 Pulse Oximetry 94 94 93 07/08/20 12:58 07/08/20 13:00 07/08/20 13:15 Temperature Pulse Rate 96 H 94 H Respiratory Rate 29 H 29 H Blood Pressure 116/61 Pulse Oximetry 88 L 89 L 92 07/08/20 13:30 07/08/20 13:45 07/08/20 13:54 Temperature Pulse Rate 96 H 97 H 97 H Respiratory Rate 37 H 34 H 40 H Blood Pressure 113/55 L Pulse Oximetry 96 96 90 L 07/08/20 14:00 07/08/20 14:15 07/08/20 14:30 Temperature Pulse Rate 96 H 97 H 96 H Respiratory Rate 29 H 28 H 28 H Blood Pressure 115/63 98/53 L 103/56 L Pulse Oximetry 90 L 92 07/08/20 14:45 07/08/20 15:00 07/08/20 15:15 Temperature Pulse Rate 96 H 95 H 92 H Respiratory Rate 35 H 29 H 27 H Blood Pressure 103/60 105/68 103/57 L Pulse Oximetry 99 95 07/08/20 15:30 07/08/20 16:00 Temperature 97.5 F L Pulse Rate 91 H 93 H Respiratory Rate 26 H 26 H Blood Pressure 119/61 126/76 Pulse Oximetry 98 98 Oxygen Delivery Method Nasal Cannula Oxygen Flow Rate 4 Narrative Exam Narrative: GENERAL APPEARANCE: Well developed, obese yet chronically ill-appearing female in no acute distress. Short of breath with 1-2 word sentences and tachypneic SKIN: Inspection of the skin reveals no rashes, ulcerations or petechiae. HEENT: Normocephalic atraumatic, extraocular muscles are intact, oropharynx is clear and mucous membranes are dry, neck is supple without adenopathy NECK: Supple and symmetric. CHEST: Normal AP diameter, no tenderness LUNGS: Auscultation of the lungs revealed diminished breath sounds bilaterally, intermittent mild wheezing on the left. CARDIOVASCULAR: Distant heart sounds, difficult to appreciate, but grossly regular rate and rhythm without murmurs, rubs, or gallops. ABDOMEN: Soft, nontender, and nondistended. MUSCULOSKELETAL: There was no tenderness or effusions noted. Muscle strength and tone were normal. EXTREMITIES: No cyanosis, clubbing. There is trace lower extremity edema and some chronic venous stasis changes. Chronic appearing bilateral diabetic foot ulcers with no surrounding erythema, induration, or tenderness NEUROLOGIC: Alert and oriented x 3. Normal affect. Broken speech, unclear if this is due to prior stroke or dyspnea at this time. Objective ECG Impression: Normal sinus rhythm, no ST or T-wave abnormalities indicative of ischemia. Imaging Chest x-ray: My impression: Right lung infiltrates, no pleural effusion or suspicious bony abnormalities. Grossly normal heart size. Radiologist's impression: PROCEDURE: XR CHEST 1V INDICATIONS: suspected sepsis TECHNIQUE: One view of the chest was acquired. COMPARISON: [facility], CHEST 1 VIEW, 09/03/2015, 12:05. [facility], CHEST 1 VIEW, 06/16/2015, 13:01. FINDINGS: Surgical changes and devices: None. Lungs and pleura: Infiltrates in right lung consistent with pneumonia. No pleural effusions or pneumothorax. Mediastinum: Mediastinal contours appear normal. Heart size is normal. Bones and chest wall: No suspicious bony lesions. Overlying soft tissues appear unremarkable. IMPRESSION: Right side pneumonia Dictated by: Donita Wright M.D. on 07/08/2020 at 13:06 Approved by: Donita Wright M.D. on 07/08/2020 at 13:07 Labs Result Diagrams: 07/08/20 12:50 07/08/20 12:50 Labs: Laboratory Results - last 24 hr 07/08/20 07/08/20 07/08/20 12:50 12:50 12:50 WBC 32.3 H* RBC 4.09 Hgb 9.5 L Hct 31.2 L MCV 76.3 L MCH 23.3 L MCHC 30.6 RDW 16.5 H Plt Count 543 H Neut % (Auto) 81.3 H Lymph % (Auto) 9.5 L [place] % (Auto) 7.4 Eos % (Auto) 1.4 L Baso % (Auto) 0.4 Neut # (Auto) 59157 H Lymph # (Auto) 3100 [place] # (Auto) 2400 H Eos # (Auto) 400 Baso # (Auto) 100 PT 13.3 H INR 1.2 APTT 34 Sodium 135 L Potassium 4.1 Chloride 97 L Carbon Dioxide 31 BUN 17 Creatinine 0.56 Estimated GFR > 60.0 BUN/Creatinine Ratio 30.4 H Glucose 78 L Lactate Calcium 9.7 Total Bilirubin 0.7 AST 17 ALT 13 Alkaline Phosphatase 134 H Total Creatine Kinase CK-MB (CK-2) CK-MB (CK-2) Rel Index Troponin I NT-Pro-B Natriuret Pep Total Protein 7.1 Albumin 3.7 Globulin 3.4 Albumin/Globulin Ratio 1.1 Lipase 10 L Procalcitonin 0.24 Urine Color Urine Appearance Urine pH Ur Specific [place] Urine Protein Urine Glucose (UA) Urine Ketones Urine Occult Blood Urine Nitrate Urine Bilirubin Urine Urobilinogen Ur Leukocyte Esterase Urine RBC Urine WBC Ur Squamous Epith Cells Urine Bacteria Ur Culture Indicated? SARS-CoV-2 (PCR) 07/08/20 07/08/20 07/08/20 12:50 12:50 13:05 WBC RBC Hgb Hct MCV MCH MCHC RDW Plt Count Neut % (Auto) Lymph % (Auto) [place] % (Auto) Eos % (Auto) Baso % (Auto) Neut # (Auto) Lymph # (Auto) [place] # (Auto) Eos # (Auto) Baso # (Auto) PT INR APTT Sodium Potassium Chloride Carbon Dioxide BUN Creatinine Estimated GFR BUN/Creatinine Ratio Glucose Lactate 1.4 Calcium Total Bilirubin AST ALT Alkaline Phosphatase Total Creatine Kinase 36 CK-MB (CK-2) TNP CK-MB (CK-2) Rel Index TNP Troponin I < 0.012 NT-Pro-B Natriuret Pep 577 H Total Protein Albumin Globulin Albumin/Globulin Ratio Lipase Procalcitonin Urine Color Urine Appearance Urine pH Ur Specific [place] Urine Protein Urine Glucose (UA) Urine Ketones Urine Occult Blood Urine Nitrate Urine Bilirubin Urine Urobilinogen Ur Leukocyte Esterase Urine RBC Urine WBC Ur Squamous Epith Cells Urine Bacteria Ur Culture Indicated? SARS-CoV-2 (PCR) Negative 07/08/20 13:29 WBC RBC Hgb Hct MCV MCH MCHC RDW Plt Count Neut % (Auto) Lymph % (Auto) [place] % (Auto) Eos % (Auto) Baso % (Auto) Neut # (Auto) Lymph # (Auto) [place] # (Auto) Eos # (Auto) Baso # (Auto) PT INR APTT Sodium Potassium Chloride Carbon Dioxide BUN Creatinine Estimated GFR BUN/Creatinine Ratio Glucose Lactate Calcium Total Bilirubin AST ALT Alkaline Phosphatase Total Creatine Kinase CK-MB (CK-2) CK-MB (CK-2) Rel Index Troponin I NT-Pro-B Natriuret Pep Total Protein Albumin Globulin Albumin/Globulin Ratio Lipase Procalcitonin Urine Color Yellow Urine Appearance Sl cloudy Urine pH 5.0 Ur Specific [place] 1.015 Urine Protein 2+ H Urine Glucose (UA) Negative Urine Ketones Negative Urine Occult Blood Negative Urine Nitrate Negative Urine Bilirubin Negative Urine Urobilinogen 0.2 Ur Leukocyte Esterase Negative Urine RBC None seen Urine WBC 0-1/hpf Ur Squamous Epith Cells 0-1 /hpf Urine Bacteria Few (2-10) H Ur Culture Indicated? Cult not indicated SARS-CoV-2 (PCR) Assessment & Plan Assessment & Plan narrative: Ariana Causey is a 60-year-old female with past medical history of morbid obesity, type 2 diabetes with chronic foot wounds followed by wound care, peripheral vascular disease, prior CVA, probable COPD, and active smoker who presented to the emergency room with increasing weakness over the past 48 hours. Patient was admitted to Medicine under observation for probable aspiration pneumonia. 1. Bacterial Pneumonia of the R lung, acute, present on admission - continue zosyn for proable aspiration pneumonia / oral anaerobes given R lung infiltrate on exam and history of chronic dysphagia. - continue supplemental oxygen to maintain O2 >88% but no greater than 96%. - speech therapy ordered - f/u full respiratory panel which is pending, COVID 19 testing negative. - Leukocytosis of 32, previously has been elevated in the 20s chronically, unclear how acute this is as previous lab values were approx 1 year ago. Recommend outpatient hematology consultation for further evaluation. \ - PSI score of 82. 2. Possible Acute respiratory failure with hypoxia - unclear if desaturations in the ER at this time were due to respiratory failure given poor wave-form upon arrival to the floor. Will continue to monitor. Goal O2 >88% given likely COPD. - patient does demonstrate tachypnea, however much of this may be chronic due to obesity and prior CVA. Unclear baseline at this time. - ordered TTE given elevated proBNP on admission and shortness of breath. 3. Probable COPD -patient does not carry known diagnosis of COPD, no home medications or inhalers. - RT evaluate and treat, takes no home inhalers. Will add albuterol prn. 4. history of CVA - continue plavix, lipitor 80 mg - speech therapy as noted above. 5. Anemia, acute, present on admission - previous CBC with Hg of >12 but this was approximately 1 year ago, today this is 9.5. She reports no melena or hematochezia. No emesis reported. - continue to monitor, check iron panel. Recommend outpatient evaluation unless evidence of active bleeding. 6. Leukocytosis, acute on chronic, present on admission - probable acute rise secondary to pneumonia, but has been chronically elevated. Prior workup with wound care done here shows no evidence of multiple myeloma. Recommend outpatient hematology consultation as noted above. 7. DM, chronic - continue home lantus, although given borderline glucose today will reduce slightly in the setting of possible infection to 40 BID from 55 U BID. 8. PVD - continue plavix, statin 9. HTN, will hold home losartan currently in setting of possible low BP. 10. Chronic LE diabetic foot ulcers - continue local wound care, does not appear to be actively infected. Code: DNR, surrrogate / DPOA is patient's granddaughter. Dispo: Admitted under observation status as her stay is is not expected to exceed 2 midnights DVT: Lovenox daily
--- NOTE | 2020-07-08 18:02 | DI.ECHO.S_ITS ---
[facility]---------+ [facility] +---------+ : : [address] : : : : [id number] : : : : Phone: [phone] Echocardiogram Report + + :Name: MITRA VERMA Study Date: 07/09/2020 Height: 64 in : :[facility] ReadingLocation: Weight: 228 lb : : Gender: Female BSA: 2.1 m2 : :: 1960 Age: 60 yrs BP: 113/69 mmHg: :Reason For Study: SHORTNESS OF BREATH : :Ordering Physician: DEREK, : :MOSHE YADAV Performed By: Sheeba Kerr : :Referring: MOSHE REED : + + Interpretation Summary This is a technically difficult study complicated by off axis apical views and limited endocardial visualization. Next time I recommend Definity echo contrast. Normal sinus rhythm. Left ventricle is normal in size and function. There is mild left ventricular hypertrophy. Ejection fraction is estimated at 60-65%. Mild left atrial enlargement and borderline right atrial enlargement There is moderate mitral annular calcification with mildly calcified leaflets and mild mitral stenosis with mean gradient of 5 mmHg. Right ventricle is mildly dilated but with normal function. Estimated pulmonary artery systolic pressure is 82 mmHg assuming right atrial pressure 15 mmHg. Compared to prior study 06/2015 PASP went up from 42 mm hg to 82 mm Hg. Mild RV enlargement is new. Procedure: A two-dimensional transthoracic echocardiogram with color flow and Doppler was performed. The study quality was technically difficult. Comparison is made with the echocardiogram of 06/15/2015. The patient was in sinus rhythm with heart rates between 91-101 bpm during the exam. Left Ventricle: The left ventricle is normal in size. Left ventricular wall thickness is mildly increased. Left ventricular ejection fraction is estimated to be 65 +/- 5%. Right Ventricle: The right ventricle is mildly dilated. The right ventricular systolic function is normal. Atria: The left atrium is mildly dilated. Borderline right atrial enlargement. There is no Doppler evidence for an interatrial shunt. Mitral Valve: There is mild calcification extending into the subvalvular apparatus. The mitral valve leaflets are mildly calcified. The mitral valve mean gradient is 4.8 mmHg. There is mild mitral regurgitation. Aortic Valve: The aortic valve is not well visualized. There is no aortic valve stenosis. No aortic regurgitation is present. Tricuspid Valve: The tricuspid valve is not well visualized. The right ventricular systolic pressure is estimated to be at least 82 mmHg based on an estimated right atrial pressure of 15 mm Hg. There is mild to moderate tricuspid regurgitation. Pulmonic Valve: The pulmonic valve is not well visualized. There is no pulmonic valvular regurgitation. Great Vessels: The aortic root is normal size. The ascending aorta is mildly enlarged. The IVC is dilated (diameter is greater than 2.1 cm) and it collapses less than 50% with a sniff. This suggests a high right atrial pressure of 15 mm Hg. Pericardium/ Pleura There is no pericardial effusion. There is no pleural effusion. MMode/2D Measurements & Calculations LVIDd: 4.2 cm LVOT diam: 2.2 cm LVIDs: 2.5 cm Ao root diam: 3.0 cm FS: 39.1 % asc Aorta Diam: 3.5 cm EPSS: 0.35 cm IVSd: 0.88 cm LVPWd: 1.2 cm LV nash. diameter/BSA (cm/m^2): 2.0 LV sys. diameter/BSA (cm/m^2): 1.2 LA A2 area: 20.6 cm2 RA long axis: 4.9 cm LA A4 area: 25.8 cm2 RA area: 19.9 cm2 LA length (vol): 5.7 cm RA vol: 69.3 ml LA vol: 79.2 ml RA : 33.5 ml/m2 LA vol index: 38.3 ml/m2 IVC diam: 2.7 cm RVD1 (basal): 4.2 cm TAPSE: 2.0 cm Doppler Measurements & Calculations Ao V2 max: 178.3 cm/sec LVOT Max Juan Francisco: 108.1 cm/sec Ao V2 mean: 125.6 cm/sec LV V1 max P.7 mmHg Ao max P.7 mmHg LV V1 VTI: 17.0 cm Ao mean P.0 mmHg RENATE(I,D): 2.3 cm2 Ao V2 VTI: 29.0 cm RENATE(V,D): 2.4 cm2 sev ratio: 0.59 RENATE indexed to BSA (cm^2/m^2): 1.1 MV E max juan francisco: 128.5 cm/sec TR max juan francisco: 396.4 cm/sec MV A max juan francisco: 125.6 cm/sec TR max P.9 mmHg MV E/A: 1.0 PA V2 max: 101.6 cm/sec Med Peak E' Juan Francisco: 7.3 cm/sec PA V2 mean: 65.2 cm/sec E/E' med: 17.7 PA mean P.0 mmHg Lat Peak E' Juan Francisco: 6.0 cm/sec PA pr(Accel): 12.2 mmHg E/E' lat: 21.5 E/e' average: 19.6 MV dec time: 0.16 sec MVA(VTI): 1.9 cm2 MV V2 mean: 102.8 cm/sec SV(LVOT): 67.6 ml MV mean P.8 mmHg MV V2 VTI: 36.4 cm Electronically signed by: Chinyere Mcdonald M.D. on Reading Physician:07/09/2020 04:22 PM
[2020-07-08 18:10] LABS: Adenovirus Not Detected (Not Detect); B. parapertussis Not Detected (Not Detecte); Bordetella pertussis Not Detected (Not Detecte); Chlamydophila pneumoniae Not Detected (Not Detect); Coronavirus 229E Not Detected (Not Detect); Coronavirus HKU1 Not Detected (Not Detect); Coronavirus NL 63 Not Detected (Not Detect); Coronavirus OC43 Not Detected (Not Detect); Human Metapneumovirus Not Detected (Not Detect); Human Rhinovirus/Enterovirus Not Detected (Not Detect); Influenza A Not Detected (Not Detect); Influenza B Not Detected (Not Detect); Mycoplasma pneumoniae Not Detected (Not Detect); Parainfluenza Virus 1 Not Detected (Not Detect); Parainfluenza Virus 2 Not Detected (Not Detect); Parainfluenza Virus 3 Not Detected (Not Detect); Parainfluenza Virus 4 Not Detected (Not Detect); Respiratory Syncytial Virus Not Detected (Not Detect); SARS- CoV-2 Not Detected (Not Detecte)
[2020-07-08] MEDS: PIPERACILLIN-TAZO 3.375 GM/50 ML FROZ.PIGGY IV (19:01)
[2020-07-08] MEDS: CYCLOBENZAPRINE 10 MG TABLET PO (20:27)
--- NOTE | 2020-07-08 22:44 | PC.NURSE ---
Pt SOB w/any excretion and at times at rest, SpO2 93-93% on 2-3L O@ Lungs diminished T/O. Tele shows NSR x2 per ICU staff. AC CBG = 100; HS = 76, pudding and recheck =85. Fagan cath patent clear niko urine Call light w/in reach, bed alarm on for pt safety. Continue w/plan of care.
[2020-07-09] MEDS: PIPERACILLIN-TAZO 3.375 GM/50 ML FROZ.PIGGY IV ×4 (02:32→20:59)
[2020-07-09 05:38] LABS: Add Manual Diff / Slide Review NO; Basophils Absolute Auto 100 /uL (0-100); Basophils Percent Auto 0.4 % (0-2); Eosinophils Absolute Auto 800 /uL (0-450); Eosinophils Percent Auto 3.2 % (2-4); Hematocrit 26.2 % (36-46); Hemoglobin 8.2 g/dL (12.0-16.0); Lymphocytes Absolute Auto 3300 /uL (1100-4500); Lymphocytes Percent Auto 13.8 % (25-40); Mean Corpuscular HGB Conc 31.4 % (30-36); Mean Corpuscular Hemoglobin 24.3 PG (26-34); Mean Corpuscular Volume 77.3 fL (80-100); Monocytes Absolute Auto 2400 /uL (0-900); Monocytes Percent Auto 9.8 % (3-14); Neutrophils Absolute Auto 17600 /uL (1500-7000); Neutrophils Percent Auto 72.8 % (50-75); Platelet Count 503 X10^3/uL (150-400); Red Blood Cell Count 3.39 X10^6/uL (4.0-5.2); Red Cell Distribution Width 16.9 % (11.6-14.8); White Blood Cell Count 24.2 X10^3/uL (4.5-11.0)
[2020-07-09 05:50] LABS: BUN Creatinine Ratio 22.8 (6-22); Blood Urea Nitrogen 13 mg/dL (7-17); Calcium 8.5 mg/dL (8.4-10.2); Carbon Dioxide 30 mmol/L (22-32); Chloride 104 mmol/L (98-107); Estimated Glomerular Filt Rate > 60.0 mL/min (>60); Glucose 66 mg/dL (80-110); HEMOLYSIS < 15 (0-50); Magnesium 1.7 mg/dL (1.6-2.3); Potassium 4.1 mmol/L (3.4-5.1); Sodium 139 mmol/L (137-145)
[2020-07-09 06:00] VITALS: BP 149/78; PULSE 92; RESP 16; TEMP 36.2; O2SAT 99
--- NOTE | 2020-07-09 06:07 | PC.NURSE ---
Addendum entered by Magy Prince R.N. 07/09/20 06:46: Pt glucose 0635 returned 67. Repeated procedure, to recheck. Provider aware, changes in insulin dosing have been made. Pt expectorated blood tinged sputum, provider aware, RT to collect sputum sample. XR ordered. Original Note: Blood taken by lab at around 0455 came back at 0600 w/ glucose at 66. Provider informed. Pt given source of food appropriate to diet to regain sugar.
[2020-07-09 06:41] LABS: Total Iron Binding Capacity 283 ug/dL (265-497); Transferrin 224 mg/dL (206-381)
--- NOTE | 2020-07-09 06:43 | DI.RAD.S_ITS ---
PROCEDURE: XR CHEST 1V INDICATIONS: blood in sputum TECHNIQUE: One view of the chest was acquired. COMPARISON: [facility], [facility], XR CHEST 1V, 07/08/2020, 12:52. [facility], JOHN, CHEST 1 VIEW, 09/03/2015, 12:05. FINDINGS: Surgical changes and devices: None. Lungs and pleura: Lungs are moderately edematous diffusely. No pleural effusions or pneumothorax. Mediastinum: Mediastinal contours appear normal. Heart size is enlarged. Bones and chest wall: No suspicious bony lesions. Overlying soft tissues appear unremarkable. IMPRESSION: Cardiomegaly with pulmonary edema, probably a manifestation of acute CHF. Atypical pneumonia conceivably could produce this appearance. Dictated by: Dejan Canales M.D. on 07/09/2020 at 9:50 Approved by: Dejan Canales M.D. on 07/09/2020 at 10:03
[2020-07-09 07:14] LABS: NT-proBNP (BNP-Adult 18+) 453 pg/mL (<125)
[2020-07-09 08:05] VITALS: BP 132/77; PULSE 91; RESP 21; TEMP 36.2; O2SAT 96
[2020-07-09] MEDS: CYCLOBENZAPRINE 10 MG TABLET PO (09:41)
[2020-07-09] MEDS: CITALOPRAM 10 MG TABLET 40 MG PO (09:41)
[2020-07-09] MEDS: CLOPIDOGREL 75 MG TABLET PO (09:41)
[2020-07-09] MEDS: ENOXAPARIN 40 MG/0.4 ML SYRINGE SUBCUT (09:43)
[2020-07-09 11:28] VITALS: BP 142/79; PULSE 91; RESP 20; TEMP 36.5; O2SAT 98
--- NOTE | 2020-07-09 12:32 | PC.NURSE ---
Day shift: Pt's daughter reported that Pt's dentures where very dirty and actually had mold on them when daughter removed them from Pt's mouth this AM.
[2020-07-09] MEDS: FUROSEMIDE 40 MG/4 ML VIAL IV (13:05)
--- NOTE | 2020-07-09 13:11 | P.PN_ITS ---
Subjective Subjective Date Patient Seen: 07/09/20 Time Patient Seen: 10:11 Interval history: Today she says her breathing feels well. However she is speaking in two word responses. Still remains on 3L oxygen. Speech eval noted that she is resistant to adhere to dysphagia diet. Exam Vital Signs (past 8 hours): - 07/09/20 06:00 07/09/20 08:05 07/09/20 11:28 Temperature 97.2 F L 97.2 F L 97.7 F Pulse Rate 92 H 91 H 91 H Respiratory Rate 16 21 20 Blood Pressure 149/78 H 132/77 142/79 H Pulse Oximetry 99 96 98 Oxygen Delivery Method Nasal Cannula Oxygen Flow Rate 2 Narrative Exam Narrative: GENERAL APPEARANCE: Well developed, obese yet chronically ill- appearing female in no acute distress. Short of breath with 1-2 word sentences and tachypneic SKIN: Inspection of the skin reveals no rashes, ulcerations or petechiae. HEENT: Normocephalic atraumatic, extraocular muscles are intact, oropharynx is clear and mucous membranes are dry, neck is supple without adenopathy NECK: Supple and symmetric. CHEST: Normal AP diameter, no tenderness LUNGS: Auscultation of the lungs revealed diminished breath sounds bilaterally, intermittent mild wheezing on the left. CARDIOVASCULAR: Distant heart sounds, difficult to appreciate, but grossly regular rate and rhythm without murmurs, rubs, or gallops. ABDOMEN: Soft, nontender, and nondistended. MUSCULOSKELETAL: There was no tenderness or effusions noted. Muscle strength and tone were normal. EXTREMITIES: No cyanosis, clubbing. There is trace lower extremity edema and some chronic venous stasis changes. Chronic appearing bilateral diabetic foot ulcers with no surrounding erythema, induration, or tenderness NEUROLOGIC: Alert and oriented x 3. Normal affect. Broken speech, unclear if this is due to prior stroke or dyspnea at this time. Objective Labs Result Diagrams: 07/09/20 04:55 07/09/20 04:55 Labs: Laboratory Results - last 24 hr 07/08/20 07/08/20 07/08/20 12:50 12:50 12:50 WBC 32.3 H* RBC 4.09 Hgb 9.5 L Hct 31.2 L MCV 76.3 L MCH 23.3 L MCHC 30.6 RDW 16.5 H Plt Count 543 H Neut % (Auto) 81.3 H Lymph % (Auto) 9.5 L [place] % (Auto) 7.4 Eos % (Auto) 1.4 L Baso % (Auto) 0.4 Neut # (Auto) 08945 H Lymph # (Auto) 3100 [place] # (Auto) 2400 H Eos # (Auto) 400 Baso # (Auto) 100 PT 13.3 H INR 1.2 APTT 34 Sodium 135 L Potassium 4.1 Chloride 97 L Carbon Dioxide 31 BUN 17 Creatinine 0.56 Estimated GFR > 60.0 BUN/Creatinine Ratio 30.4 H Glucose 78 L Lactate Calcium 9.7 Magnesium TIBC Transferrin Total Bilirubin 0.7 AST 17 ALT 13 Alkaline Phosphatase 134 H Total Creatine Kinase CK-MB (CK-2) CK-MB (CK-2) Rel Index Troponin I NT-Pro-B Natriuret Pep Total Protein 7.1 Albumin 3.7 Globulin 3.4 Albumin/Globulin Ratio 1.1 Lipase 10 L Procalcitonin 0.24 Urine Color Urine Appearance Urine pH Ur Specific [place] Urine Protein Urine Glucose (UA) Urine Ketones Urine Occult Blood Urine Nitrate Urine Bilirubin Urine Urobilinogen Ur Leukocyte Esterase Urine RBC Urine WBC Ur Squamous Epith Cells Urine Bacteria Ur Culture Indicated? Chlamy pneumoniae PCR Adenovirus (PCR) B. pertussis DNA (PCR) B.parapertussis DNA PCR Coronavirus OC43 (PCR) Coronavirus HKU1 (PCR) Coronavirus 229E (PCR) SARS-CoV-2 (PCR) Coronavirus NL63 (PCR) Human Metapneumovir PCR Influenza Type A (PCR) Influenza Type B (PCR) M. pneumoniae (PCR) Parainfluenza 1 (PCR) Parainfluenza 2 (PCR) Parainfluenza 3 (PCR) Parainfluenza 4 (PCR) RSV (PCR) Entero/Rhino (PCR) 07/08/20 07/08/20 07/08/20 12:50 12:50 13:05 WBC RBC Hgb Hct MCV MCH MCHC RDW Plt Count Neut % (Auto) Lymph % (Auto) [place] % (Auto) Eos % (Auto) Baso % (Auto) Neut # (Auto) Lymph # (Auto) [place] # (Auto) Eos # (Auto) Baso # (Auto) PT INR APTT Sodium Potassium Chloride Carbon Dioxide BUN Creatinine Estimated GFR BUN/Creatinine Ratio Glucose Lactate 1.4 Calcium Magnesium TIBC Transferrin Total Bilirubin AST ALT Alkaline Phosphatase Total Creatine Kinase 36 CK-MB (CK-2) TNP CK-MB (CK-2) Rel Index TNP Troponin I < 0.012 NT-Pro-B Natriuret Pep 577 H Total Protein Albumin Globulin Albumin/Globulin Ratio Lipase Procalcitonin Urine Color Urine Appearance Urine pH Ur Specific [place] Urine Protein Urine Glucose (UA) Urine Ketones Urine Occult Blood Urine Nitrate Urine Bilirubin Urine Urobilinogen Ur Leukocyte Esterase Urine RBC Urine WBC Ur Squamous Epith Cells Urine Bacteria Ur Culture Indicated? Chlamy pneumoniae PCR Adenovirus (PCR) B. pertussis DNA (PCR) B.parapertussis DNA PCR Coronavirus OC43 (PCR) Coronavirus HKU1 (PCR) Coronavirus 229E (PCR) SARS-CoV-2 (PCR) Negative Coronavirus NL63 (PCR) Human Metapneumovir PCR Influenza Type A (PCR) Influenza Type B (PCR) M. pneumoniae (PCR) Parainfluenza 1 (PCR) Parainfluenza 2 (PCR) Parainfluenza 3 (PCR) Parainfluenza 4 (PCR) RSV (PCR) Entero/Rhino (PCR) 07/08/20 07/08/20 07/09/20 13:05 13:29 04:55 WBC RBC Hgb Hct MCV MCH MCHC RDW Plt Count Neut % (Auto) Lymph % (Auto) [place] % (Auto) Eos % (Auto) Baso % (Auto) Neut # (Auto) Lymph # (Auto) [place] # (Auto) Eos # (Auto) Baso # (Auto) PT INR APTT Sodium Potassium Chloride Carbon Dioxide BUN Creatinine Estimated GFR BUN/Creatinine Ratio Glucose Lactate Calcium Magnesium TIBC 283 Transferrin 224 Total Bilirubin AST ALT Alkaline Phosphatase Total Creatine Kinase CK-MB (CK-2) CK-MB (CK-2) Rel Index Troponin I NT-Pro-B Natriuret Pep Total Protein Albumin Globulin Albumin/Globulin Ratio Lipase Procalcitonin Urine Color Yellow Urine Appearance Sl cloudy Urine pH 5.0 Ur Specific [place] 1.015 Urine Protein 2+ H Urine Glucose (UA) Negative Urine Ketones Negative Urine Occult Blood Negative Urine Nitrate Negative Urine Bilirubin Negative Urine Urobilinogen 0.2 Ur Leukocyte Esterase Negative Urine RBC None seen Urine WBC 0-1/hpf Ur Squamous Epith Cells 0-1 /hpf Urine Bacteria Few (2-10) H Ur Culture Indicated? Cult not indicated Chlamy pneumoniae PCR Not detected Adenovirus (PCR) Not detected B. pertussis DNA (PCR) Not detected B.parapertussis DNA PCR Not detected Coronavirus OC43 (PCR) Not detected Coronavirus HKU1 (PCR) Not detected Coronavirus 229E (PCR) Not detected SARS-CoV-2 (PCR) Not detected Coronavirus NL63 (PCR) Not detected Human Metapneumovir PCR Not detected Influenza Type A (PCR) Not detected Influenza Type B (PCR) Not detected M. pneumoniae (PCR) Not detected Parainfluenza 1 (PCR) Not detected Parainfluenza 2 (PCR) Not detected Parainfluenza 3 (PCR) Not detected Parainfluenza 4 (PCR) Not detected RSV (PCR) Not detected Entero/Rhino (PCR) Not detected 07/09/20 07/09/20 07/09/20 04:55 04:55 04:55 WBC 24.2 H RBC 3.39 L Hgb 8.2 L Hct 26.2 L MCV 77.3 L MCH 24.3 L MCHC 31.4 RDW 16.9 H Plt Count 503 H Neut % (Auto) 72.8 Lymph % (Auto) 13.8 L [place] % (Auto) 9.8 Eos % (Auto) 3.2 Baso % (Auto) 0.4 Neut # (Auto) 59277 H Lymph # (Auto) 3300 [place] # (Auto) 2400 H Eos # (Auto) 800 H Baso # (Auto) 100 PT INR APTT Sodium 139 Potassium 4.1 Chloride 104 Carbon Dioxide 30 BUN 13 Creatinine 0.57 Estimated GFR > 60.0 BUN/Creatinine Ratio 22.8 H Glucose 66 L Lactate Calcium 8.5 Magnesium 1.7 TIBC Transferrin Total Bilirubin AST ALT Alkaline Phosphatase Total Creatine Kinase CK-MB (CK-2) CK-MB (CK-2) Rel Index Troponin I NT-Pro-B Natriuret Pep 453 H Total Protein Albumin Globulin Albumin/Globulin Ratio Lipase Procalcitonin Urine Color Urine Appearance Urine pH Ur Specific [place] Urine Protein Urine Glucose (UA) Urine Ketones Urine Occult Blood Urine Nitrate Urine Bilirubin Urine Urobilinogen Ur Leukocyte Esterase Urine RBC Urine WBC Ur Squamous Epith Cells Urine Bacteria Ur Culture Indicated? Chlamy pneumoniae PCR Adenovirus (PCR) B. pertussis DNA (PCR) B.parapertussis DNA PCR Coronavirus OC43 (PCR) Coronavirus HKU1 (PCR) Coronavirus 229E (PCR) SARS-CoV-2 (PCR) Coronavirus NL63 (PCR) Human Metapneumovir PCR Influenza Type A (PCR) Influenza Type B (PCR) M. pneumoniae (PCR) Parainfluenza 1 (PCR) Parainfluenza 2 (PCR) Parainfluenza 3 (PCR) Parainfluenza 4 (PCR) RSV (PCR) Entero/Rhino (PCR) [facility] Medical History CHF (congestive heart failure) Diabetes Hyperlipidemia Hypertension Peripheral neuropathy PVD (peripheral vascular disease) TIA (transient ischemic attack) Surgical History H/O angioplasty Social History household members: caregiver Smoking Status: Current every day smoker Assessment & Plan Assessment & Plan narrative: Ariana Causey is a 60-year-old female with past medical history of morbid obesity, type 2 diabetes with chronic foot wounds followed by wound care, peripheral vascular disease, prior CVA, probable COPD, and active smoker who presented to the emergency room with increasing weakness over the past 48 hours. Patient was admitted to Medicine under observation for probable aspiration pneumonia. 1. Bacterial Pneumonia of the R lung, acute, present on admission - continue zosyn for proable aspiration pneumonia / oral anaerobes given R lung infiltrate on exam and history of chronic dysphagia. - continue supplemental oxygen to maintain O2 >88% but no greater than 96%. - speech therapy rec dysphagia diet - f/u full respiratory panel which is pending, COVID 19 testing negative. - Leukocytosis of 32, now improved to 24, previously has been elevated in the 20s chronically, unclear how acute this is as previous lab values were approx 1 year ago. May need outpatient hematology consultation for further evaluation. 2. Acute respiratory failure with hypoxia due to aspiration pneumonia and prob able acute CHF exacerbation - patient desaturated to the 80s when trying to wean off oxygen - patient does demonstrate tachypnea, and speaking short sentences - has elevated BNP and xray consistent with pulmonary edema, await final echo results. However has probable of acute congestive heart failure. Will start IV lasix 3. Probable COPD -patient does not carry known diagnosis of COPD, no home medications or inhalers. - RT evaluate and treat, takes no home inhalers. Will add albuterol prn. 4. history of CVA - continue plavix, lipitor 80 mg - speech therapy as noted above. 5. Anemia, acute, present on admission - previous CBC with Hg of >12 but this was approximately 1 year ago, today this is 9.5. She reports no melena or hematochezia. No emesis reported. - continue to monitor, check iron panel. Recommend outpatient evaluation unless evidence of active bleeding. 6. Leukocytosis, acute on chronic, present on admission - probable acute rise secondary to pneumonia, but has been chronically elevated. Prior workup with wound care done here shows no evidence of multiple myeloma. Recommend outpatient hematology consultation as noted above. 7. DM, chronic - continue home lantus, although given borderline glucose today will reduce slightly in the setting of possible infection to 40 BID from 55 U BID. 8. PVD - continue plavix, statin 9. HTN, will hold home losartan currently in setting of possible low BP. 10. Chronic LE diabetic foot ulcers - continue local wound care, does not appear to be actively infected. Code: DNR, surrrogate / DPOA is patient's granddaughter. Dispo: Admitted to inpatient as has not weaned off oxygen, and has new diagnosis of probably CHF DVT: Lovenox daily Quality VTE Deep Vein Thrombosis/Pulmonary Embolism Present on Admission: No
--- NOTE | 2020-07-09 14:20 | CM.DPNOTE ---
Addendum entered by Analy Mathews 07/09/20 14:31: [facility]. Fax confirmation received. Analy Mathews CM Asst. Original Note: Faxed referral packet to [facility] per Yolanda on 07/09/20. Received fax confirmation. JUAN eSlft.
--- NOTE | 2020-07-09 14:23 | CM.DPNOTE ---
DCP SNF Planning Per bedside discussion with pt, preference for SNF rehab was [facility] although pt has Alej[place] and SW confirmed with [facility] admissions that they are not contracted with [facility] and could attempt one time auth if the other local [facility] contracted SNF's declined. [facility], [facility], and [facility] are also not contracted with [facility]. SW spoke to admissions at [facility], [facility], and [facility] and confirmed that they are able to accept [facility] if auth approved and pending their reimbursement for therapies. All 3 SNF's willing to review and CC Analy kindly faxed new referral to [facility], [facility] and [facility]. Plan: SW to follow closely for [facility], [facility], and [facility] review towards determining if they can accept and begin the insurance auth process. PASRR needed if SNF secured. ANNIE Stoll
--- NOTE | 2020-07-09 14:51 | CM.DPNOTE ---
Faxed all medical records to Calvin at [facility] per Yolanda [phone]. Fax confirmation received. Analy Mathews CM Asst.
--- NOTE | 2020-07-09 14:53 | DIET.PN ---
Dietary Progress Note Assessment: 60y F admitted for aspirating pneumonia (bacterial R side) c pmhx morbid obesity (BMI 39.2), DM2 c chronic foot wounds (followed by WC x3y), PVD, prior CVA, active smoker c probable COPD referred to RD for chronic wounds and aspirating pneumonia. HT: 162.5cm WT: 103.7kg BMI: 39.2 Labs: WBC 32.3 H, BG 66-78 L, last A1c on file from 2019 10.5. Pt initially hesitant to speak c RD stating I have heard it all before. RD built rapport by talking about [place], pt became more forthcoming c information and willingness to converse. Pt currently living c her spike driver near [place], [place] in a home where a total of 8 dogs live and poop and pee on the floors. Pt feels not going back to the home will be beneficial, states I try to lift my feet, pt states spike driver weighs 380# and they are not good influences on each others eating habits. Pt followed by wound care for chronic toe wounds since 2018. Notes state pts A1c 14 at that time c BG checks each visit >200 c ongoing non-compliance. Pt not forthright c POs stating strawberries increased BG >300 at one visit. Pt historically forgetful c BG checks and insulin dosing. Pt has missing molars and hx of CVA, has difficulty c mastication and per SLT resistant to thickened liquids. Pt reports ordering food from restaurants which she cannot eat secondary to chewing issues. Pt assigned dysphagia puree c nectar liquids this hospital stay. Pt taking Victoza weekly and lantus 55U bid which was reduced to 40U during hospital stay as pts BG 66-78 and on carb consistent diet. MNA: not calculated Jarvis: 16 Nutrition Diagnosis: Interventions: 1. Recc Heimdal thick Dwain bid per chronic wounds. 2. Educated pt on diet for respiratory, DM, and chronic wounds. Helped pt understand the diets are complimentary as we want high nutrient, carb restricted diet for all. Discussed nutrient needs for wound healing including protein, zinc, vits A and C. Discussed appropriate texture and carb level foods in each category. Pt was very conversant in discussing this topic as she says she has not learned about nutrients for wound healing previously. Pt agreeable to increased beans and refried beans (no lard) for PRO and zinc, winter squash for Vit A, and raspberries/strawberries/lemon and qagan tayagungin for Vitamin C. Pt happy to have three foods to focus on. 3. Discussed pts intake of Tropicana 50 orange juice. Pt states she mixes this c water to fill 16oz cup. Educated pt on importance of either eliminating juice or limiting to no more than 4oz/d secondary to high carb/low fiber content. Pt will work on cutting down intake. Diet Order: CCD EER: increased need for PRO, vit A and C, and zinc for wound healing, 45g CHO per meal
[2020-07-09] MEDS: GENTAMICIN 0.1% CREAM 30 GM 1 APPLIC TOP (15:01)
--- NOTE | 2020-07-09 15:02 | PC.NURSE ---
Dressings changed to wounds on bilateral toes and lateral ankles per Wound Care orders. Small amount of serous drainage noted. Wound bases appear yellow with some pink granulation tissue present. Wounds cleansed with normal saline and gauze. Periwound skin appears slightly pink, dry. Gauze applied between toes. Gentamicin cream applied to all open areas. Silver hydrofiber cut to sizes of wounds and placed over wound beds. Superabsorbent Mextra dressings applied to bilat lateral ankles, Exudrys over bilateral feet, covering toes. Dressings wrapped with roll gauze. Netting applied for security.
--- NOTE | 2020-07-09 15:10 | CM.DANOTE ---
Patient is 60 yo female with [place] and medicaid insurance. Patient presents at hospital due to bacterial pneumonia. Patient is currently on 3L of oxygen. Patient was referred for ST. Per ST, patient is resistant to dysphagia diet. milanese knitting machine operator met with patient and daughter Kathy at bedside. Patient was A/Ox4, patient uses wheelchair time study observer. Daughter reported that patient was resistant to come to hospital for medical attention. Daughter states that patient may have a screening appt at [facility], patient has [facility] rn field case manager, HH and resides with [facility] caregiver Bianca. Daughter reports concerns of patient returning to live with Bianca due to open APS investigation and the condition of the home (dog feces on the floor). Patient states she wants to return home and daughter reports that she would like patient to get into SNF or SENIOR CARE. Patient states she gets WC every 3 weeks. Yolanda MACHINE FITTER receives call from [facility] rn field case manager with [place] [facility] reporting concerns of the condition of the home and that assessment for longterm care was sent to [facility] but [facility] requires two years of private pay prior to [place] insurance usage, [facility] was recommended. MACHINE FITTER contacted Preston at [facility] and he states there are bed openings. MACHINE FITTER contacts Kathy at [facility] and left VM about patient's application for SENIOR CARE through medicaid. MACHINE FITTER spoke with Calvin Bill with APS. Calvin reports concerns of the living condition of the home and the open APS investigation. Calvin requests medical records and update upon discharge. Plan: follow with referral to [facility], SNF rehabs, and refer for PT. ANNIE Clinton Discharge Planning/Care Management CM Discharge Assessment Start: 07/09/20 14:20 Freq: Status: Active Protocol: Document 07/09/20 14:20 LN (Rec: 07/09/20 14:24 LN [id number]) Discharge Planning Assessment Assigned Grails Web Application Developer ANNIE Clinton Advance Directives? No History Provided By Patient,Family Member Has Patient been admitted in last 30 No days? Prior Living Arrangements House Household Members caregiver Type of transporation used prior to Relies on Others admit Independent with ADL's No Is patient alert and oriented? Yes Patient/Family Preference Nursing Home Facility Comment Patient also open to SENIOR CARE Referrals Initiated Custody Assistant,Other Additional Comment ST referral Please Provide Date Initial DC 07/09/20 Assessment Was Performed
--- NOTE | 2020-07-09 16:02 | ST.IPCSEOM ---
Visit Care Team Role Provider Type JED Ventura, SKI TECHNICIAN-C Primary Care Provider Non-Staff Specialty: Family Practice Address: [address] [place] [address], [address], [place], [address] Email: Mónica Petersen MD Emergency Provider Physician Referring Provider Specialty: Emergency Medicine Address: [address] [place] [address], [id number] Email: Rafael Mccoy DO Admit Provider Physician Attending Provider Specialty: Internal Medicine Address: [address] [place] [address], [id number] Email: [email or web address] Past Medical History (Last Reviewed 07/08/20 @ 18:16 by Rafael Mccoy DO) CHF (congestive heart failure) (Medical) Diabetes (Medical) Type 2, multiple complications Hyperlipidemia (Medical) Hypertension (Medical) Peripheral neuropathy (Medical) With chronic foot wounds followed by wound care PVD (peripheral vascular disease) (Medical) TIA (transient ischemic attack) (Medical) Speech-Language Pathology Swallow Evaluation 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 Clinical Swallow Evaluation Start: 07/09/20 15:14 Freq: Status: Active Protocol: Document 07/09/20 15:15 LNK (Rec: 07/09/20 16:02 LNK [id number]) Clinical Swallow Evaluation Session Time Visit Start Time 12:15 Visit Stop Time 12:45 Total Visit Minutes 30 Referral Reason for Referral aspiration pneumonia Setting Assessment Location Acute Care Visit Type Note Type Initial evaluation Next Note Type Next Note Type Treatment Note Patient Information Identification Type Name,Wristband History Ariana Causey is a 60-year-old female with past medical history of morbid obesity, type 2 diabetes with chronic foot wounds followed by wound care, peripheral vascular disease, prior CVA, probable COPD, and active smoker who presented to the emergency room with increasing weakness over the past 48 hours. She states that she is unable to get out of her bed recently. At her baseline she is usually able to get into a wheelchair , but not much more than this. She states that her house is a mess in an is difficult to get around in. Patient denies shortness of breath and states that her current speech pattern is typical for her after her stroke. Chest x-ray showed a right-sided infiltrate consistent with pneumonia. Upon arrival to the hospital floor the patient was still having 1-2 word dyspnea when speaking, but she did not complain of shortness of breath. Subjective Observations Pt was in her bed with her daughter at bedside trying to help pt drink apple juice. Reported by Patient Other Symptoms Choking,Coughing,History of aspiration or pneumonia Current Diet Dysphagia advanced,Thin liquids Baseline Feeding Method Needs some assistance Objective Assessment Mental Status Alert,Responsive Dentition Dentures or partials present, Upper dentures/partials,Lower dentures/partials,Poor denture or partial fitting Lip Function Mild impairment Observation of Lips at Rest Symmetrical Lip Retraction Reduced range of motion Tongue Function Mild impairment Observations of Tongue at Rest Deviates to the left Phonation Within normal limits Respiratory Sufficiency Severe impairment Comment Informal observation of OM indicated mild reduction in ROM of tongue and lips. Pt presented with mild dysarthria from earlier CVA; speech was ~ 75% intelligible. Pt wears upper and lower dentures. Pt's daughter reported that the pt 's dentures were dirty and had mold on them when she tried to clean them. Pt's daughter reported that the pt is unable to chew with her dentures. Food and Liquid Trials Position During Assessment Slightly reclined Liquids Trialed Thin,[place] Solids Trialed Puree Administration Type Tea spoon,Self-feeding,Needs some assistance Oral Impairment Severely impaired Oral Phase Comments Pt demonstrated difficulty with textured foods. Puree texture wasthe safest texture given her dentition and oral care. Pharyngeal Impairment Moderately impaired Pharyngeal Phase Comments Throughout the evaluation, the pt's voice was consistently wet, at times interfering with intelligibility of her speech . She coughed frequently with thin liquids. The use of a straw increased the pt's cough /choke.The pt has had prior speech therapy and was able to describe her swallow strategies: chin tuck with head turn, 1 swallow at a time , stop eating/drinking when coughing. According to her daughter, the pt is non- compliant with these strategies. During discussion of thickened liquids to reduce risk for aspiration, the pt rolled her eyes and said no. Fatigue/Endurance Severe fatigue Comment Pt was SOB throughout the evaluation only able to say 2 words/breath. Frequent wet coughing/choking was observed, especially with thin liquids. pt was unable to clear the wetvoicing and was unable to bring up the phegm in her throat. Strategies Attempted Chin tuck,Head rotation Response/Comments According to the pt's daughter , the pt has not been compliant with her aspiration precautions/strategies. In her caregiver's home the pt reports she eats/drinks in her wheelchair most of the time . When asked if the head of her bed was elevated due to a moderate-severe aspiration risk, the pt reported that her caregiver told her that she wouldn't allow a hospital bed into her home. This was confirmed by her daughter, who stated that the pt sleeps on a flat bed. This sleeping position is not recommended due to the high aspiration risk sleeping flat presents. The pt noted that her shortness of breath is worse when lying flat. More importantly, given the pt's medical diagnoses, as well as her weight, she is likely refluxing, thus adding to the risk of aspirating while when sleeping. Findings Swallowing Function Dysphagia unspecified Severity of Swallow Impairment Moderately-severely impaired Contributing Factors to Swallow Difficulty following Impairment directions,Reduced oral strength/coordination/ sensation,Mastication inefficiency,Impaired airway protection,Excessive pharyngeal residue Prognosis Fair Based on Bed bound,Age,History of aspiration/aspiration pneumonia,Duration of symptoms /severity,Other (comment) Comment Pt has a history of not following medical advice Impact on Safety and Functioning Risk for inadequate nutrition/ hydration Recommendations Instrumental Assessment No Swallowing Treatment Yes Frequency daily Duration while inpatient Recommended Solids Puree Recommended Liquids [place] Other Recommendations meds crushed in carrier Cue pt to clear throat and swallow when pt's voice is wet feed/eat slowly 1 bite per swallow Upright in bed at 90 degree HOB elevated at minimum of 30 degrees at all times except during meals Stop eating/drinking whem coughing ; wait 1-2 minutes before resuming Safety Precautions/Swallowing 1 to 1 close supervision, Recommendations Remain upright (90 degrees) during all oral intake,Needs verbal cues to use recommended strategies,Upright position at least 30 minutes after meals,Small bites and sips when eating,Slow rate; swallow between bites,No straw,Set-up assistance,1 to 1 feeding assistance,Family assistance/ supervision,Strict oral care after intake,Check for pocketing Medication Recommendations Crushed in Carrier Discharge Recommendations intermediate facility,[facility] care facility Education Patient/Caregiver Education Described results of evaluation,Patient expressed understanding of evaluation, Family/caregivers expressed understanding of evaluation, Family/caregivers expressed agreement with goals & treatment plans,Patient expressed understanding of safety precautions,Patient expressed understanding of feeding recommendations,Family /caregivers expressed understanding of safety precautions,Family/caregivers expressed understanding of feeding recommendations, Patient requires further education/training Goals Long-term Goals Pt will safely tolerate the least restricted diet without s/sx aspiration.
[2020-07-09 16:12] VITALS: PULSE 96; RESP 24; O2SAT 93
[2020-07-09 17:00] VITALS: BP 138/76; PULSE 93; RESP 22; TEMP 36.1; O2SAT 97
[2020-07-09] MEDS: OXYBUTYNIN 5 MG TABLET PO (17:48)
[2020-07-09 19:53] LABS: Hemoglobin 8.7 g/dL (12.0-16.0); Mean Corpuscular Hemoglobin 23.5 PG (26-34); Mean Corpuscular Volume 75.9 fL (80-100); Platelet Count 514 X10^3/uL (150-400); Red Blood Cell Count 3.69 X10^6/uL (4.0-5.2); Red Cell Distribution Width 16.2 % (11.6-14.8); White Blood Cell Count 20.5 X10^3/uL (4.5-11.0)
[2020-07-09 20:09] LABS: BUN Creatinine Ratio 20.3 (6-22); Blood Urea Nitrogen 13 mg/dL (7-17); Calcium 8.7 mg/dL (8.4-10.2); Carbon Dioxide 32 mmol/L (22-32); Chloride 99 mmol/L (98-107); Estimated Glomerular Filt Rate > 60.0 mL/min (>60); Glucose 140 mg/dL (80-110); HEMOLYSIS < 15 (0-50); Magnesium 1.6 mg/dL (1.6-2.3); Potassium 3.7 mmol/L (3.4-5.1); Sodium 137 mmol/L (137-145)
[2020-07-09 20:48] VITALS: BP 138/73; PULSE 91; RESP 21; TEMP 36; O2SAT 97
[2020-07-09] MEDS: ATORVASTATIN 20 MG TABLET 80 MG PO (20:59)
[2020-07-09] MEDS: INSULIN GLARGINE 100 UNIT/ML 3ML PEN 20 UNIT SUBCUT (21:01)
--- NOTE | 2020-07-09 22:30 | PC.NURSE ---
Relatively uneventful evening, ' Denies discomfort. HL LFA & LAC intact/patent. Tele shows NSR per ICU staff. Fagan cath patent clear, yellow urine CBG AC = 87; HS = 115 Call light w/in reach, bed alarm on for pt safety. Continue w/plan of care.
[2020-07-10] VITALS (8 sets, daily range): BP systolic 124–146; BP diastolic 60–83; PULSE 82–94; RESP 16–20; TEMP 36.1–36.6; O2SAT 94–98
[2020-07-10] MEDS: PIPERACILLIN-TAZO 3.375 GM/50 ML FROZ.PIGGY IV ×4 (03:36→20:45)
[2020-07-10 05:34] LABS: Add Manual Diff / Slide Review NO; Basophils Absolute Auto 100 /uL (0-100); Basophils Percent Auto 0.7 % (0-2); Eosinophils Absolute Auto 700 /uL (0-450); Eosinophils Percent Auto 3.5 % (2-4); Hematocrit 29.6 % (36-46); Hemoglobin 9.1 g/dL (12.0-16.0); Lymphocytes Absolute Auto 2300 /uL (1100-4500); Lymphocytes Percent Auto 10.9 % (25-40); Mean Corpuscular HGB Conc 30.8 % (30-36); Mean Corpuscular Hemoglobin 23.7 PG (26-34); Monocytes Absolute Auto 1900 /uL (0-900); Monocytes Percent Auto 9.1 % (3-14); Neutrophils Absolute Auto 15700 /uL (1500-7000); Neutrophils Percent Auto 75.8 % (50-75); Platelet Count 520 X10^3/uL (150-400); Red Blood Cell Count 3.84 X10^6/uL (4.0-5.2); Red Cell Distribution Width 16.3 % (11.6-14.8); White Blood Cell Count 20.7 X10^3/uL (4.5-11.0)
[2020-07-10 05:49] LABS: Blood Urea Nitrogen 13 mg/dL (7-17); Calcium 8.7 mg/dL (8.4-10.2); Carbon Dioxide 33 mmol/L (22-32); Chloride 99 mmol/L (98-107); Estimated Glomerular Filt Rate > 60.0 mL/min (>60); Glucose 97 mg/dL (80-110); HEMOLYSIS < 15 (0-50); Magnesium 1.8 mg/dL (1.6-2.3); Potassium 3.8 mmol/L (3.4-5.1); Sodium 138 mmol/L (137-145)
--- NOTE | 2020-07-10 07:55 | CM.DPC ---
Addendum entered by ANNIE Stoll 07/10/20 15:50: ADD: Msg left from Calvin PARKER CM inquiring about d/c plan for pt and SW called back ([phone]) and left detailed msg on plan of SNF at [facility] for likely d/c tomorrow and requested he call and follow up with [facility] and gave contact number and continue LTC planning from SNF as [facility] is focusing on short stay SNF and cannot continue LTC planning at this time. BF Addendum entered by ANNIE Stoll 07/10/20 12:25: SW met bedside with pt and Dtr and updated on [facility] acceptance and that they are working on Allen auth. Dtr and pt agreeable to try [facility] especially since its quite close to Dtr's house in [place]. Per MD, pt could likely be stable for d/c on oxygen and abx to SNF if insurance auth obtained. JOSEE called [facility] and she confirms she sent intial request for Allen auth but need therapy notes for final Allen approval. SW faxed PT and ST notes to [facility] towards insurance auth with OT jennifer to follow when available. BF Original Note: DCP SNF Planning: Return message from [facility] and they confirm they can accept pt at d/c for SNF rehab and will begin Allen auth today. Dtr Kathy left msg requesting call back at cell number [phone] for further d/c planning unless she is bedside again today. Plan: SW to follow for updating pt and Dtr on [facility] acceptance and [facility] to be completed today in anticipation of SNF prior to LTC planning secured by pt's ELENA MARTINEZ and [facility]. SW to check in with Preston at [facility] to confirm if he received pt's HCS assessment to review yet. ANNIE Stoll
[2020-07-10] MEDS: CYCLOBENZAPRINE 10 MG TABLET PO ×2 (09:46→20:43)
[2020-07-10] MEDS: ENOXAPARIN 40 MG/0.4 ML SYRINGE SUBCUT (09:46)
[2020-07-10] MEDS: CLOPIDOGREL 75 MG TABLET PO (09:46)
[2020-07-10] MEDS: CITALOPRAM 10 MG TABLET 40 MG PO (09:47)
--- NOTE | 2020-07-10 10:15 | PT.IIE ---
Current Diagnoses Pneumonitis due to inhalation of food and vomit (07/08/20) Surgical History (Last Reviewed 07/08/20 @ 18:16 by Rafael Mccoy DO) H/O angioplasty Medical History (Last Reviewed 07/08/20 @ 18:16 by Rafael Mccoy DO) CHF (congestive heart failure) Diabetes Hyperlipidemia Hypertension Peripheral neuropathy PVD (peripheral vascular disease) TIA (transient ischemic attack) Physical Therapy Inpatient Evaluation/Re-Eval M1 PT/OT-IP Prior Functional Status Start: 07/10/20 11:50 Freq: NEEDED Status: Active Protocol: Document 07/10/20 10:15 AB (Rec: 07/10/20 12:15 AB [email or web address]) Medical Review Prior Functional Status Medical History Reviewed Yes Communication able to make needs known Mobility and Gait pt stated that her caregiver assists her with getting out of the bed, stand pivot transfer with max A onto a w/c and is non-ambulatory. daughter in room and stated that when pt comes to visit her, she make her walk and do the stairs with her to get into the house Prior Functional Level (Other details) pt stated that she had her stroke in 2014 and was able to ambulate even 2 years afterwards but now is non ambulatory and is mostly w/c bound. able to maneuver w/c on even surfaces but needs assists with uneven surfaces. Social History Household Members caregiver Living Arrangements House Number of Floors (Floors) One Floor Number of Stairs To Enter/Railing? ramp to enter Home Environment Walk in Shower Additional Social History Comment daughter stated that the pt lives with her caregiver (has a disabled son and ) and that the living situation with the caregiver is not ideal. stated that pt plans to go to SNF and eventually a LTC facility for pt but for the mean time might stay with daughter while waiting for bed availability. daughter stated that pt's caregiver does not give her a shower and just sponge bathes her. M2 PT-IP Current Condition Start: 07/10/20 11:50 Freq: NEEDED Status: Active Protocol: Document 07/10/20 10:15 AB (Rec: 07/10/20 12:15 AB [id number]) Physical Therapy Current Condition Current Condition Evaluation Date 07/10/20 Treatment Diagnosis aspiration PNA; h/o CVA with R edmund; difficulty in walking Onset Date 07/08/20 Precautions Other Precautions falls; B lower leg wrapped with dressing: pt stated that she has chronic open wounds on B legs M3 PT-IP Subjective Start: 07/10/20 11:50 Freq: NEEDED Status: Active Protocol: Document 07/10/20 10:15 AB (Rec: 07/10/20 12:15 AB [email or web address]) Subjective Physical Therapy Visit Type Type Initial Evaluation Visit Start Time 10:15 Visit Stop Time 10:49 Total Visit Minutes 34 Number of TITLE SUPERVISOR Visits 0 Therapy Pain Assessment Pain When Pain Assessed During Mobility Location Bilateral Foot Scale Used pain scale not stated Pain Management Techniques Distraction,Modification of Treatment,Re-positioning, Timing of Activity with Medications M4 PT-IP Mobility and Gait Start: 07/10/20 11:50 Freq: NEEDED Status: Active Protocol: Document 07/10/20 10:15 AB (Rec: 07/10/20 12:15 AB [id number]) PT-Bed Mobility Assessment Supine to Sit Supine to Sit Maximum Assistance,2 Person Assistance,Head of Bed Elevated,Bedrails Scooting Scooting to Edge of Bed Maximum Assistance PT-Transfer Assessment Sit to and From Stand Sit to and from Stand Maximum Assistance,2 Person Assistance,Use of Upper Extremities Equipment Transfer Assistive Device Gait Belt,Front Wheeled Walker Orthotic/Prosthetic Devices or Brace: No Transfers Transfer Destination Chair Transfer Technique Stand Step Pivot Transfer Ability Level of Assist Maximum Assistance,2 Person Assistance,Use of Upper Extremities Comments Mobility Comments daughter initially in room with pt during start of PT session. daughter tends answer questions directed to pt interfere during PT session . [place] during mobility. daughter stated that she is going to step out because she is going to have a panic attack of PT and NAC dropping pt on the floor. pt agreed to get up. completed supine to sit max A x 2 and max cues. HOB elevated and pt used bedrail to assist. pt was able to sit on EOB mod and max cues. required max X 2 for scooting to EOB. completed sit to stand max A x 2 and max cues and was able to stand max A x 2 using FWW for support. able to take steps during transfer to the chair using FWW max x 2 and max cues. midway during transfer, pt started getting anxious and stated that her feet are sliding forward but B feet are actually stable on the floor. pt required max A x 2 to descend on to the chair. stated that she is exhausted and unable to do ambulation. positioned with max A x 2 and max cues. Left pt with NAC. Gait Assessment Comments Gait Comments able to take steps during transfers using FWW PT-Balance Assessment Sitting Balance and Reactions Static Sitting Balance Ability Fair Dynamic Sitting Balance Ability Fair Standing Balance and Reactions Static Standing Balance Ability Poor Dynamic Standing Balance Ability Poor Device Used FWW M5 PT-IP Objective Assessments Start: 07/10/20 11:50 Freq: NEEDED Status: Active Protocol: Document 07/10/20 10:15 AB (Rec: 07/10/20 12:15 AB [email or web address]) Orientation Orientation/Cognition Level of Alertness Alert Orientation Name Language Function Ability Hard of Hearing Safety Awareness Decreased Safety Awareness Gross Range of Motion Lower Extremity ROM Assessment Within Functional Limits Strength Lower Extremity Strength Assessment Right Impaired Hip 3+/5 Knee 3+/5 Ankle 3-/5 Muscle Tone Muscle Tone WNL Yes M6 PT-IP Treatment Start: 07/10/20 11:50 Freq: NEEDED Status: Active Protocol: Document 07/10/20 10:15 AB (Rec: 07/10/20 12:15 AB [email or web address]) Physical Therapy Treatment Education Education Provided Safety M7 PT-IP Assessment and Plan Start: 07/10/20 11:50 Freq: NEEDED Status: Active Protocol: Document 07/10/20 10:15 AB (Rec: 07/10/20 12:15 AB [email or web address]) PT Summary Assessment and Plan Potential Rehabilitation Potential Good Status of Condition at Evaluation Evolving Summary Impairments Pain,ROM,Strength,Balance, Coordination,Sensation,Tone, Cognition,Bed Mobility, Transfers,Gait,Activity Tolerance Assessment Summary pt requiring max A x 2 with all mobilities using FWW and unable to tolerate much activity. Pt will benefit from SNF rehab to improve overall strength, activity tolerance and mobility assistance. Goals Bed Mobility Goal Minimal Assistance Transfer Goal Minimal Assistance,Front Wheeled Walker Gait Goal Minimal Assistance,Front Wheel Walker Gait Distance 25 Other Goals improve transfers using FWW CGA and ambulation using FWW 50 ft min A Days to Meet Goals 5 Frequency of Treatment Frequency Of Treatment Once a Day Treatment Plan Physical Therapy Treatment Plan Bed Mobility Training,Transfer Training,Gait Training, Therapeutic Exercise,Balance Retraining,Discharge Planning, Hot or Cold Pack,Neuromuscular Re-ed,Coordination Retraining ,Manual Therapy Precautions Other Precautions falls B lower leg wrapped with dressing: pt stated that she has chronic open wounds on B legs Recommendations To Nursing Amount of Assist Needed 2 Person Assist Discharge Recommendations PT Discharge Recommendations SNF Rehab Transportation Needs at Discharge Wheelchair/Cabulance
[2020-07-10] MEDS: INSULIN GLARGINE 100 UNIT/ML 3ML PEN 15 UNIT SUBCUT ×2 (11:43→20:44)
--- NOTE | 2020-07-10 11:45 | OT.IP.EVAL ---
Current Diagnoses Pneumonitis due to inhalation of food and vomit (07/08/20) Past Medical History (Last Reviewed 07/08/20 @ 18:16 by Rafael Mccoy DO) CHF (congestive heart failure) Diabetes Hyperlipidemia Hypertension Peripheral neuropathy PVD (peripheral vascular disease) TIA (transient ischemic attack) Surgical History (Last Reviewed 07/08/20 @ 18:16 by Rafael Mccoy DO) H/O angioplasty Occupational Therapy Inpatient Evaluation/Re-Eval M1 PT/OT-IP Prior Functional Status Start: 07/10/20 12:27 Freq: NEEDED Status: Active Protocol: Document 07/10/20 11:20 [facility] (Rec: 07/10/20 12:43 [facility] [id number]) Medical Review Prior Functional Status Medical History Reviewed Yes Communication able to make needs known Mobility and Gait pt stated that her caregiver assists her with getting out of the bed, stand pivot transfer with max A onto a w/c and is non-ambulatory. daughter in room and stated that when pt comes to visit her, she make her walk and do the stairs with her to get into the house Activities of Daily Living and IADL's Pt mainly just has been able to self feed herself after set -up , otherwise needing assist for all other ADl's. Pt dependent for all IADl needs. Prior Functional Level (Other details) pt stated that she had her stroke in 2014 and was able to ambulate even 2 years afterwards but now is non ambulatory and is mostly w/c bound. able to maneuver w/c on even surfaces but needs assists with uneven surfaces. Social History Household Members caregiver Living Arrangements House Number of Floors (Floors) One Floor Number of Stairs To Enter/Railing? ramp to enter Home Environment Walk in Shower Additional Social History Comment daughter stated that the pt lives with her caregiver (has a disabled son and ) and that the living situation with the caregiver is not ideal. stated that pt plans to go to SNF and eventually a LTC facility for pt but for the mean time might stay with daughter while waiting for bed availability. daughter stated that pt's caregiver does not give her a shower and just sponge bathes her. M2 OT-IP Current Condition Start: 07/10/20 12:27 Freq: Status: Active Protocol: Document 07/10/20 11:20 [facility] (Rec: 07/10/20 12:43 [facility] [id number]) Occupational Therapy Current Condition Current Condition Evaluation Date 07/10/20 Treatment Diagnosis Aspiration PNA, h/o CVA, decreased mobility Diagnosis Onset Date 07/08/20 M3 OT- IP Subjective and Pain Start: 07/10/20 12:27 Freq: Status: Active Protocol: Document 07/10/20 11:20 [facility] (Rec: 07/10/20 12:43 [facility] [id number]) OT- Subjective Occupational Therapy Visit Type Type Initial Evaluation Visit Start Time 11:20 Visit Stop Time 11:45 Total Visit Minutes 25 Occupational Therapy Visit Comments Patient Comments Pt's daughter present during OT eval. Patient/Caregiver Goals To be able to do more for herself. OT Pain Assessment Pain When Pain Assessed At Rest Pain Present Pain Present Pain Reported, Notified nursing of pain in her calves left greater than right during light touch. M4 OT- IP ADL's Start: 07/10/20 12:27 Freq: Status: Active Protocol: Document 07/10/20 11:20 [facility] (Rec: 07/10/20 12:43 [facility] [id number]) OT BHA-Sdhn-Noqdeao Comments OT Self-Feeding Comments Not at meal time. Noted pt coughing on nectar liquids and suggested that pt needs to be 90 degrees and upright in the recliner, pt wanting to return to bed. OT ADL-Dressing General Eval Lower Body Dressing Ability Total Assistance OT ADL-Toileting General Evaluation Toileting Ability Total Assistance Comments OT Toileting Comments Pt has catheter in. OT ADL-Bathing Comments OT Bathing Comments Sponge bath more appropriate at this time. M5 OT- IP IADL's Start: 07/10/20 12:27 Freq: Status: Active Protocol: Document 07/10/20 11:20 [facility] (Rec: 07/10/20 12:43 [facility] [id number]) OT-Instrumental Activities of Daily Living Deficits IADL Deficits Identified Deficits Home Safety Awareness Awareness of Need for Assistance at Home Decreased Awareness Ability to Problem Solve Emergency Unable to Problem Solve Situations Medication Management Medication Management Caregiver Administers Money Management Money Management Caregiver Provides Assistance Meal Preparation Meal Preparation Caregiver Provides Assist Lumber Checker Lumber Checker Caregiver Provides Assist M6 OT- IP Functional Cognition Start: 07/10/20 12:27 Freq: Status: Active Protocol: Document 07/10/20 11:20 [facility] (Rec: 07/10/20 12:43 [facility] [id number]) Cognitive Factors Limiting Selfcare Function Cognitive Ability Level of Alertness Alert Patient Orientation Name Attention Span Ability Capable of Focused Attention, Unable to Sustain Attention Ability to Follow Commands Able to Follow One Step Commands with Increased Time, Able to Follow One Step Commands with Repetition Cognitive Comments Cognitive Assessment Comments Pt needing lots on encouragement to participate in therapy. Pt able to follow concrete simple commands. M7 OT- IP Mobility and Balance Start: 07/10/20 12:27 Freq: Status: Active Protocol: Document 07/10/20 11:20 [facility] (Rec: 07/10/20 12:43 [facility] [id number]) OT- Bed Mobility Assessment Sit to Supine Sit to Supine Assist Maximum Assistance,1 Person Assistance OT-Transfer Assessment Sit to and From Stand Sit to and from Stand Maximum Assistance,2 Person Assistance Transfers Transfer Ability Maximum Assistance,2 Person Assistance Technique Transfer Destination Bed,Chair Transfer Technique Stand Step Pivot Devices Transfer Assistive Devices Gait Belt,Front Wheeled Walker Comments Mobility Comments VC to push up from the recliner and MAX AX 2 to stand and transfer to the bed. Pt's daughter offered and able to assist. OT- Gait Assessment Comments Gait Ability Comments Transfer only at this time. OT- Balance Assessment Sitting Balance and Reactions Static Sitting Balance Ability Fair Dynamic Sitting Balance Ability Poor Standing Balance and Reactions Static Standing Balance Ability Poor Dynamic Standing Balance Ability Poor M8 OT- IP Objective Assessments Start: 07/10/20 12:27 Freq: Status: Active Protocol: Document 07/10/20 11:20 [facility] (Rec: 07/10/20 12:43 [facility] [id number]) OT Gross Range of Motion Upper Extremity Range of Motion Assessment Bilaterally Impaired OT Strength Upper Extremity Strength Assessment Bilaterally Impaired Comments Strength Comments BUE 3-/5 to 4-/5 from proximal to distal. OT Sensation Assessment Edema Edema Comments Right hand more swollen that left hand. M9 OT- IP Assessment and Plan Start: 07/10/20 12:27 Freq: Status: Active Protocol: Document 07/10/20 11:20 [facility] (Rec: 07/10/20 12:43 [facility] [id number]) OT Summary Assessment and Plan Potential Rehabilitation Potential Fair Analytic Complexity at Evaluation Moderate Summary OT Impairments Pain,Range of Motion,Strength, Balance,Coordination, Functional Cognition, Functional Mobility,Self- Feeding,Grooming,Dressing, Toileting,Bathing,Toilet Transfers,Shower Transfers, Activity Tolerance Progress Towards Goals Slow Progress due to Pain,Slow Progress due to Medical Issues,Slow Progress due to Activity Tolerance,Slow Progress due to Cognition Assessment Summary Pt here due to aspiration PNA and MOD complexity as prior h/ O CVA , decreased balance, activity tolerance, strength, and now needing extensive two person assist for needs. Plan is for pt to go to skilled rehab. Goals Self-Feeding Goal Standby Assistance Grooming Goal Standby Assistance Dressing Goal Moderate Assistance Toileting Goal Moderate Assistance Bathing Goal Moderate Assistance Toilet Transfer Goal Moderate Assistance Shower Transfer Goal Moderate Assistance Days to Meet Goals 20 Frequency of Treatment Frequency Of Treatment Once a Day Treatment Plan OT Treatment Plan ADL Training,Functional Cognition Training,Functional Mobility,Patient/Family Education,Discharge Planning Discharge Recommendations OT Discharge Recommendations SNF Rehab Transportation Needs at Discharge Wheelchair/Cabulance
--- NOTE | 2020-07-10 11:56 | ST.IPDYTX ---
Visit Care Team Role Provider Type JED Ventura, BOILERMAKER HELPER-C Primary Care Provider Non-Staff Specialty: [facility] Address: [address] [place] [address], [address], [place], [address] Email: Mónica Petersen MD Emergency Provider Physician Referring Provider Specialty: Emergency Medicine Address: [address] [place] [address], [id number] Email: Rafael Mccoy DO Admit Provider Physician Attending Provider Specialty: Internal Medicine Address: [address] [place] [address], [id number] Email: [email or web address] FRIEND [employer] Dysphagia Treatment FRIEND OF [employer] Dysphagia Treatment Start: 07/10/20 11:47 Freq: Status: Active Protocol: Document 07/10/20 11:49 [facility] (Rec: 07/10/20 11:56 [facility] [id number]) Dysphagia Treatment Session Time Visit Start Time 11:00 Visit Stop Time 11:30 Total Visit Minutes 30 Setting Assessment Location Acute Care Visit Type Note Type Treatment Note Next Note Type Next Note Type Treatment Note Patient Information Identification Type Name,ID Wristband Subjective Observations Pt was seated up in bedside chair. Pt's daughter came into pt's room toward the end of the session. Treatment Liquids Trialed [place] Administration Type Cup Single Sip,Self-Feeding Oral Strategies Upright at 90 degrees, Controlled Bite/Sip Size Pharyngeal Strategies Sitting Upright (90 deg),Turn Head Left,Chin Tuck,Double Swallow Treatment Activities [place] thick liquids at the bedside. Pt requested tomato juice as well. She also requested an egg salad sandwich. This FRIEND OF THE COURT explained to pt that breads can be difficult to swallow and present a choking risk. pt is not wearing her lower denture and remarked its hard to chew anything without teeth. Reviewed safe swallow strategies with pt and her daughter: tuck chin and turn head to the left. After leaving pt's room to look for the nurse, pt started to cough /choke after drinking. She said that she was swallowing while rubbing her leg and she started to cough. Encouraged pt to avoid distractions while swallowing to reduce aspiration risk. Assessment Patient Response to Treatment Good Rehab Potential Fair Assessment of Improvement Pt appeared overall to be improved from yesterday. Her voice was clearer but still had a wet quality. Less SOB while talking today. Pt stated she will be going to SNF after the hospital. Diet Recommendations Recommendations Continue Current Diet Medication Recommendations Whole in Carrier Aspiration Precautions Recommended Precautions Upright at 90 Degrees,Small Bites/Sips,Chin Tuck,Left Head Turn,Liquids from Cup Treatment Plan Placement Recommendation after Discharge [facility]pc Facility Appropriate for Continued Therapy Yes: While inpatient Dysphagia Goals Pt will safely tolerate the least restricted diet without s/sx aspiration.
--- NOTE | 2020-07-10 12:19 | CM.DPNOTE ---
Faxed PT notes to Magy at [facility] for authorization process per Ginger on 07/10/20. I phoned Magy afterward asking her to watch for this fax. Received fax confirmation. Analy Mathews CM Asst.
[2020-07-10] MEDS: INSULIN ASPART 100 UNIT/ML INSULN PEN SUBCUT ×3 (12:54→20:43)
--- NOTE | 2020-07-10 15:06 | CM.DPNOTE ---
[facility] or [facility] home. Analy Mathews CM Asst.
--- NOTE | 2020-07-10 15:46 | PM.PN.1 ---
Subjective Subjective Interval history: Today she says her breathing is improved. This is what she said yesterday, but today, she feels even more notable improvement. Her daughter is at bedside and notices that she still has slight short of breath, but greatly improved from prior. Exam Vital Signs (past 8 hours): - 07/10/20 08:00 07/10/20 11:31 07/10/20 12:55 Temperature 97.0 F L 97.2 F L Pulse Rate 82 90 Respiratory Rate 20 16 Blood Pressure 138/83 142/74 H Pulse Oximetry 97 97 97 Oxygen Delivery Method Nasal Cannula Oxygen Flow Rate 0 Narrative Exam Narrative: GENERAL APPEARANCE: Well developed, obese yet chronically ill-appearing female in no acute distress. Short of breath with 1-2 word sentences and tachypneic SKIN: Inspection of the skin reveals no rashes, ulcerations or petechiae. HEENT: Normocephalic atraumatic, extraocular muscles are intact, oropharynx is clear and mucous membranes are dry, neck is supple without adenopathy NECK: Supple and symmetric. CHEST: Normal AP diameter, no tenderness LUNGS: Auscultation of the lungs revealed diminished breath sounds bilaterally, intermittent mild wheezing on the left. CARDIOVASCULAR: Distant heart sounds, difficult to appreciate, but grossly regular rate and rhythm without murmurs, rubs, or gallops. ABDOMEN: Soft, nontender, and nondistended. MUSCULOSKELETAL: There was no tenderness or effusions noted. Muscle strength and tone were normal. EXTREMITIES: No cyanosis, clubbing. There is trace lower extremity edema and some chronic venous stasis changes. Chronic appearing bilateral diabetic foot ulcers with no surrounding erythema, induration, or tenderness NEUROLOGIC: Alert and oriented x 3. Normal affect. Broken speech, unclear if this is due to prior stroke or dyspnea at this time. Objective Labs Result Diagrams: 07/10/20 05:10 07/10/20 05:10 Labs: Laboratory Results - last 24 hr 07/09/20 07/09/20 07/10/20 19:45 19:45 05:10 WBC 20.5 H 20.7 H RBC 3.69 L 3.84 L Hgb 8.7 L 9.1 L Hct 28.0 L 29.6 L MCV 75.9 L 77.0 L MCH 23.5 L 23.7 L MCHC 31.0 30.8 RDW 16.2 H 16.3 H Plt Count 514 H 520 H Neut % (Auto) 75.8 H Lymph % (Auto) 10.9 L [place] % (Auto) 9.1 Eos % (Auto) 3.5 Baso % (Auto) 0.7 Neut # (Auto) 06359 H Lymph # (Auto) 2300 [place] # (Auto) 1900 H Eos # (Auto) 700 H Baso # (Auto) 100 Sodium 137 Potassium 3.7 Chloride 99 Carbon Dioxide 32 BUN 13 Creatinine 0.64 Estimated GFR > 60.0 BUN/Creatinine Ratio 20.3 Glucose 140 H Calcium 8.7 Magnesium 1.6 07/10/20 05:10 WBC RBC Hgb Hct MCV MCH MCHC RDW Plt Count Neut % (Auto) Lymph % (Auto) [place] % (Auto) Eos % (Auto) Baso % (Auto) Neut # (Auto) Lymph # (Auto) [place] # (Auto) Eos # (Auto) Baso # (Auto) Sodium 138 Potassium 3.8 Chloride 99 Carbon Dioxide 33 H BUN 13 Creatinine 0.62 Estimated GFR > 60.0 BUN/Creatinine Ratio 21.0 Glucose 97 Calcium 8.7 Magnesium 1.8 [facility] Medical History CHF (congestive heart failure) Diabetes Hyperlipidemia Hypertension Peripheral neuropathy PVD (peripheral vascular disease) TIA (transient ischemic attack) Surgical History H/O angioplasty Social History household members: caregiver Smoking Status: Current every day smoker Assessment & Plan Assessment & Plan narrative: Ariana Causey is a 60-year-old female with past medical history of morbid obesity, type 2 diabetes with chronic foot wounds followed by wound care, peripheral vascular disease, prior CVA, probable COPD, and active smoker who presented to the emergency room with increasing weakness over the past 48 hours. 1. Bacterial Pneumonia of the R lung, acute, present on admission - continue zosyn for proable aspiration pneumonia / oral anaerobes given R lung infiltrate on exam and history of chronic dysphagia. - continue supplemental oxygen to maintain O2 >88% but no greater than 96%. - speech therapy rec dysphagia diet - f/u full respiratory panel which is pending, COVID 19 testing negative. - Leukocytosis of 32, now improved to 20.7, previously has been elevated in the 20s chronically, unclear how acute this is as previous lab values were approx 1 year ago. May need outpatient hematology consultation for further evaluation. 2. Acute respiratory failure with hypoxia due to aspiration pneumonia and acute CHF exacerbation - patient desaturated to the 80s when trying to wean off oxygen previously - respiratory status much improved - has elevated BNP and xray consistent with pulmonary edema. ECHO shows dilated RV, EF 60-65%, all consistent with CHF with preserved ejection fraction 3. Probable COPD -patient does not carry known diagnosis of COPD, no home medications or inhalers. - RT evaluate and treat, takes no home inhalers. continue albuterol prn. 4. history of CVA - continue plavix, lipitor 80 mg - speech therapy as noted above. 5. Anemia, acute, present on admission - previous CBC with Hg of >12 but this was approximately 1 year ago, today this is 9.5. She reports no melena or hematochezia. No emesis reported. - continue to monitor, check iron panel. Recommend outpatient evaluation unless evidence of active bleeding. 6. Leukocytosis, acute on chronic, present on admission - probable acute rise secondary to pneumonia, but has been chronically elevated. Prior workup with wound care done here shows no evidence of multiple myeloma. Recommend outpatient hematology consultation as noted above. 7. DM, chronic - continue home lantus, although given borderline glucose today will reduce slightly in the setting of possible infection to 40 BID from 55 U BID. 8. PVD - continue plavix, statin 9. HTN, will hold home losartan currently in setting of possible low BP. 10. Chronic LE diabetic foot ulcers - continue local wound care, does not appear to be actively infected. 11. Chronic pain - resume cymbalta Code: DNR, surrrogate / DPOA is patient's granddaughter. Dispo: Admitted to inpatient as has not weaned off oxygen, and has new diagnosis of probably CHF DVT: Lovenox daily Quality VTE Deep Vein Thrombosis/Pulmonary Embolism Present on Admission: No
[2020-07-10 16:20] LABS: HEMOLYSIS < 15 (0-50); Iron 13 ug/dL (37-170); Percent Iron Saturation 5 % (15-50)
[2020-07-10] MEDS: OXYBUTYNIN 5 MG TABLET PO (17:25)
[2020-07-10] MEDS: ATORVASTATIN 20 MG TABLET 80 MG PO (20:43)
[2020-07-10] MEDS: SODIUM CHLORIDE 0.9% FLUSH 10 ML IV (20:45)
[2020-07-11] VITALS (7 sets, daily range): BP systolic 120–149; BP diastolic 46–78; PULSE 76–93; RESP 17–26; TEMP 36.1–36.7; O2SAT 89–100
[2020-07-11] MEDS: PIPERACILLIN-TAZO 3.375 GM/50 ML FROZ.PIGGY IV ×3 (02:21→15:36)
--- NOTE | 2020-07-11 03:36 | PC.NURSE ---
Kathy from lab called about pts blood culture with methacyllin resistant gram + cocci, not MRSA, provider aware.
[2020-07-11 05:29] LABS: Add Manual Diff / Slide Review NO; Basophils Absolute Auto 100 /uL (0-100); Basophils Percent Auto 0.8 % (0-2); Eosinophils Absolute Auto 900 /uL (0-450); Eosinophils Percent Auto 4.7 % (2-4); Hematocrit 29.8 % (36-46); Hemoglobin 9.3 g/dL (12.0-16.0); Lymphocytes Absolute Auto 2600 /uL (1100-4500); Mean Corpuscular HGB Conc 31.3 % (30-36); Mean Corpuscular Hemoglobin 23.9 PG (26-34); Mean Corpuscular Volume 76.5 fL (80-100); Monocytes Absolute Auto 2200 /uL (0-900); Monocytes Percent Auto 11.4 % (3-14); Neutrophils Absolute Auto 13800 /uL (1500-7000); Neutrophils Percent Auto 70.1 % (50-75); Platelet Count 515 X10^3/uL (150-400); Red Cell Distribution Width 16.3 % (11.6-14.8); White Blood Cell Count 19.7 X10^3/uL (4.5-11.0)
[2020-07-11] MEDS: PANTOPRAZOLE 40 MG TABLET PO (05:45)
[2020-07-11 05:46] LABS: BUN Creatinine Ratio 26.2 (6-22); Blood Urea Nitrogen 16 mg/dL (7-17); Calcium 8.7 mg/dL (8.4-10.2); Carbon Dioxide 32 mmol/L (22-32); Chloride 100 mmol/L (98-107); Estimated Glomerular Filt Rate > 60.0 mL/min (>60); Glucose 162 mg/dL (80-110); HEMOLYSIS < 15 (0-50); Magnesium 1.8 mg/dL (1.6-2.3); Potassium 4.2 mmol/L (3.4-5.1); Sodium 137 mmol/L (137-145)
[2020-07-11] MEDS: INSULIN ASPART 100 UNIT/ML INSULN PEN SUBCUT ×4 (08:46→20:59)
[2020-07-11] MEDS: INSULIN GLARGINE 100 UNIT/ML 3ML PEN 15 UNIT SUBCUT ×2 (08:47→20:59)
[2020-07-11] MEDS: SODIUM CHLORIDE 0.9% FLUSH 10 ML IV ×2 (08:48→21:00)
--- NOTE | 2020-07-11 08:55 | CM.DPC ---
Addendum entered by Ava Curran LPN 07/11/20 16:25: Calvin reports Preston has discussed case with him and would not have bed availability until sometime next week as he is looking at several referrals. Calvin agreed to contact [facility]: Kathy and this d/c capacity planner faxed clinical info for their review. Kathy has now called from [facility]. She reports that for a limited time only [facility] is accepting patients into the facility without the usual 3 year private pay first. She has discussed case with the [facility] team and Leigh, Business Process Architect, will be here tomorrow about 0800 to assess pt for possible admission. Calvin/Corinne MARTINEZ has already given them his assessment and etc. Will follow closely. Addendum entered by Ava Curran LPN 07/11/20 15:06: Have discussed case now with [facility] Kramer ed case manager. He clarifies that pt moved in with her friend in [facility] and friends family a couple years ago with the intent that friend would be her CORINNE worker. Pt's care needs have increased and the friend has been unable to provide an adequate and safe level of care for pt. Calvin confirms that he and [facility] team have been working with pt to get her placed appropriately. He noted barriers: pet/now with pt agreeing to relinquish. Area/pt now open to going wherever a place can be found for her that will support her needs. Calvin states his understanding is that pt cannot return to the CORINNE worker's dwelling. Asked him about [facility] in [place]. He said he had reached out to them in April but at that time they had wait list. He agrees to do this again. Provided him contact cell # for Preston and he agrees to make the call today. In meantime, spoke with Preston/IVA. He clarifies that he is now the social worker clinical/ski patrol director and application systems administrator of the facility. He does have an open bed and agrees to review. Gave him Calvin Rolle's contact #[phone] and he is agreeable to discussion. Have faxed him some pertinent clinical information to help in the assessment process. Have also had calls from [facility] who stated strongly that the hospital must not d/c this pt to the streets; she had no where safe to go. [phone]. She planned to call [facility] herself and is referred to [facility] for more information on the [place] denial. Have reached out to Tool Specialist Julieth for discussion and advice going forward. Have spoken with RN Greg who has talked with pt's daughter. Will follow up on these calls as time allows but will focus on updating pt and on the referral now to [facility] due to limitatations of time. (and pt had been keeping family updated). Addendum entered by Ava Curran LPN 07/11/20 15:02: [facility] is not able to consider acceptance of pt under her Medicaid as they are currently at capacity with LTC patients. Addendum entered by Ava Curran LPN 07/11/20 11:34: Did leave a vm now asking [facility] is the facility would consider accepting pt under her CORINNE/Medicaid LTC benefit. Addendum entered by Ava Curran LPN 07/11/20 11:28: Pt is updated and expresses her disappointment with the [facility] denial. She is unsure where she will go at d/c at this time. She is aware that if she goes back to the [facility] caregiver's home with the additional HH services the [facility] ed case manager team will continue to look for appropriate termination clerk placement that better supports her needs. Pt is currently needing assist of 2 for all mobility and does not have this with the [facility] worker. She says she is terrified of a alea lift. Dr. Mattson is updated. He stated he will get RT involved in looking into home oxygen set up. He also said he is not sure that pt is stable yet for a d/c to the non-snf setting and plans to revisit the case. Addendum entered by Ava Curran LPN 07/11/20 11:08: Spoke with [facility]. She confirms they are open to service with pt and with RN only. Case discussed. Will add PT and OT to this ([place]/Medicaid will not cover a HH WINDOWS DESKTOP ENGINEER). Will be following. See also that [facility] has an open case. Will plan to update [facility] also on the d/c dispo and [facility] denial. Addendum entered by Ava Curran LPN 07/11/20 11:00: Case discussed in Team Rounds. Dr. Fernandez stated that pt was stable for d/c today. A check in with pt during her therapy session with PT reveals that she remained open to the plan for CSV and all were aware that the snf auth was pending. Received a call now from [facility]. She reports that Alej[facility] has just informed her that after review of the notes sent yesterday the auth request for snf care is denied. Will update Dr. Elizabeth, notify pt and look to a home setting d/c with reinstatement of HH services. Original Note: DCP: continued: case received, EMR reviewed and have now left a message with [facility] to obtain update on the status of the [facility] authorization and to see what info might be helpful to receive today. P: check in later with pt. Discuss this morning in Team Rounds.
[2020-07-11] MEDS: CYCLOBENZAPRINE 10 MG TABLET PO ×2 (09:03→20:58)
[2020-07-11] MEDS: FUROSEMIDE 40 MG/4 ML VIAL IV (09:04)
[2020-07-11] MEDS: DULOXETINE 20 MG CAPSULE PO (09:04)
[2020-07-11] MEDS: CLOPIDOGREL 75 MG TABLET PO (09:04)
[2020-07-11] MEDS: ENOXAPARIN 40 MG/0.4 ML SYRINGE SUBCUT (09:04)
--- NOTE | 2020-07-11 10:28 | PT.IPTN ---
Current Diagnoses Acute respiratory failure with hypoxia (07/08/20) Physical Therapy Treatment Note M2 PT-IP Current Condition Start: 07/10/20 11:50 Freq: NEEDED Status: Active Protocol: Document 07/10/20 10:15 AB (Rec: 07/10/20 12:15 AB [id number]) Physical Therapy Current Condition Current Condition Evaluation Date 07/10/20 Treatment Diagnosis aspiration PNA; h/o CVA with R edmund; difficulty in walking Onset Date 07/08/20 Precautions Other Precautions falls; B lower leg wrapped with dressing: pt stated that she has chronic open wounds on B legs M3 PT-IP Subjective Start: 07/10/20 11:50 Freq: NEEDED Status: Active Protocol: Document 07/11/20 09:50 SP (Rec: 07/11/20 11:07 SP [id number]) Subjective Physical Therapy Visit Type Type Treatment Note Visit Start Time 09:50 Visit Stop Time 10:28 Total Visit Minutes 38 Notes PT Aide provided 2nd person physical assist required during tx. [place] care mgt personnel present during transfer. Number of FLOTATION OPERATOR Visits 1 Physical Therapy Visit Comments Patient Comments Pt willing to work with therapy. Therapy Pain Assessment Pain When Pain Assessed During Mobility Location Bilateral Foot Scale Used pain scale not stated Pain Management Techniques Distraction,Modification of Treatment,Re-positioning, Timing of Activity with Medications M4 PT-IP Mobility and Gait Start: 07/10/20 11:50 Freq: NEEDED Status: Active Protocol: Document 07/11/20 09:50 SP (Rec: 07/11/20 11:07 SP [id number]) PT-Bed Mobility Assessment Supine to Sit Supine to Sit Maximum Assistance,2 Person Assistance,Head of Bed Elevated,Bedrails Scooting Scooting to Edge of Bed Maximum Assistance PT-Transfer Assessment Sit to and From Stand Sit to and from Stand Maximum Assistance,2 Person Assistance Equipment Transfer Assistive Device Gait Belt,Front Wheeled Walker Orthotic/Prosthetic Devices or Brace: No Transfers Transfer Destination Chair Transfer Technique Stand Step Pivot Transfer Ability Level of Assist Maximum Assistance,2 Person Assistance Comments Mobility Comments Completed Elevated supine 80 deg to sit at EOB with Max A x2 person for LE repositioning and trunk transitioning scoot to EOB with use of transfer pad. Seated EOB SBA with BUE supported on bed or FWW. Sit<> stand stood x4: W/ standing wt shift over each LE 5 sec, 15 sec, 25 sec w/ LLE repositioning f/b unable on RLE, SPT to L using FWW Max A x2 with max cuing for knee extension during opposite LE repositioing, pt able to reposition fWW self. Max slow descent into chair. Max A x1 for scooting back in chair then Max x2 usign transfer pad to scoot completely. Provided 2 room cushions under BLE for comfort support while wanted to be upright in chair. Pt had donned chair alarm, call light and all needs in reach before left. Gait Assessment Gait Gait Assistance Required: Maximum Assistance,2 Person Assist Distance (Feet) 2 Able to Maintain Weight Bearing Status Yes During Gait Assistive Devices Assistive Device Gait Belt,Front Wheeled Walker Orthotic/Prosthetic Devices or Brace: No Gait Deviations General Gait Pattern Decreased Stride Length, Decreased Feet Clearance, Flexed Trunk,Step-to Gait Factors Limiting Gait Function Factors Limiting Gait Function Decreased Activity Tolerance, Decreased Sensation,Decreased Strength,Limited Range of Motion,Pain,Poor Balance,Poor Safety Awareness Comments Gait Comments able to take steps to L during transfers using FWW, increased strength LLE> RLE today. PT-Balance Assessment Sitting Balance and Reactions Static Sitting Balance Ability Fair Dynamic Sitting Balance Ability Poor Standing Balance and Reactions Static Standing Balance Ability Poor Dynamic Standing Balance Ability Poor Device Used FWW M5 PT-IP Objective Assessments Start: 07/10/20 11:50 Freq: NEEDED Status: Active Protocol: Document 07/10/20 10:15 AB (Rec: 07/10/20 12:15 AB [id number]) Orientation Orientation/Cognition Level of Alertness Alert Orientation Name Language Function Ability Hard of Hearing Safety Awareness Decreased Safety Awareness Gross Range of Motion Lower Extremity ROM Assessment Within Functional Limits Strength Lower Extremity Strength Assessment Right Impaired Hip 3+/5 Knee 3+/5 Ankle 3-/5 Muscle Tone Muscle Tone WNL Yes M6 PT-IP Treatment Start: 07/10/20 11:50 Freq: NEEDED Status: Active Protocol: Document 07/11/20 09:50 SP (Rec: 07/11/20 11:07 SP [id number]) Physical Therapy Treatment Education Education Provided Weight Bearing Status,Safety M7 PT-IP Assessment and Plan Start: 07/10/20 11:50 Freq: NEEDED Status: Active Protocol: Document 07/11/20 09:50 SP (Rec: 07/11/20 11:07 JAYESH [id number]) PT Summary Assessment and Plan Potential Rehabilitation Potential Good Status of Condition at Evaluation Evolving Summary Impairments Pain,ROM,Strength,Balance, Coordination,Sensation,Tone, Cognition,Bed Mobility, Transfers,Gait,Activity Tolerance Progress Towards Goals Slow Progress due to Pain,Slow Progress due to Activity Tolerance Assessment Summary Pt continues to require max A x 2 with all mobilities (bed mob, scoot, sit<> stand, SPT) using FWW, able to complete multiple sit<>stands, L>RLE more stable during transfer today. Pt will benefit from SNF rehab to improve overall strength, activity tolerance and mobility assistance. Goals Bed Mobility Goal Minimal Assistance Transfer Goal Minimal Assistance,Front Wheeled Walker Gait Goal Minimal Assistance,Front Wheel Walker Gait Distance 25 Other Goals improve transfers using FWW CGA and ambulation using FWW 50 ft min A Days to Meet Goals 5 Frequency of Treatment Frequency Of Treatment Once a Day Treatment Plan Physical Therapy Treatment Plan Bed Mobility Training,Transfer Training,Gait Training, Therapeutic Exercise,Balance Retraining,Discharge Planning, Hot or Cold Pack,Neuromuscular Re-ed,Coordination Retraining ,Manual Therapy Other Recommendations and Next Treatment bed mobility, transfers using Focus fWW. Precautions Other Precautions falls; B lower leg wrapped with dressing: pt stated that she has chronic open wounds on B legs Recommendations To Nursing Amount of Assist Needed 2 Person Assist Discharge Recommendations PT Discharge Recommendations SNF Rehab Transportation Needs at Discharge Wheelchair/Cabulance
--- NOTE | 2020-07-11 13:20 | OT.IP.TRT ---
Current Diagnoses Acute respiratory failure with hypoxia (07/08/20) Occupational Therapy Treatment Note M2 OT-IP Current Condition Start: 07/10/20 12:27 Freq: Status: Active Protocol: Document 07/10/20 11:20 [facility] (Rec: 07/10/20 12:43 [facility] [id number]) Occupational Therapy Current Condition Current Condition Evaluation Date 07/10/20 Treatment Diagnosis Aspiration PNA, h/o CVA, decreased mobility Diagnosis Onset Date 07/08/20 M3 OT- IP Subjective and Pain Start: 07/10/20 12:27 Freq: Status: Active Protocol: Document 07/11/20 16:18 [facility] (Rec: 07/11/20 16:34 [facility] [id number]) OT- Subjective Occupational Therapy Visit Type Type Treatment Note Visit Start Time 13:10 Visit Stop Time 13:20 Total Visit Minutes 10 Occupational Therapy Visit Comments Patient Comments Pt wanting to go back to bed. Patient/Caregiver Goals To be able to do more for herself. OT Pain Assessment Pain When Pain Assessed At Rest Pain Present Pain Present Pain Reported M4 OT- IP ADL's Start: 07/10/20 12:27 Freq: Status: Active Protocol: Document 07/11/20 16:18 [facility] (Rec: 07/11/20 16:34 [facility] [id number]) OT ADL-Dressing General Eval Lower Body Dressing Ability Total Assistance OT ADL-Toileting General Evaluation Toileting Ability Total Assistance Comments OT Toileting Comments Assist for hygiene and brief. OT ADL-Bathing Comments OT Bathing Comments Sponge bath more appropriate at this time. M5 OT- IP IADL's Start: 07/10/20 12:27 Freq: Status: Active Protocol: Document 07/10/20 11:20 [facility] (Rec: 07/10/20 12:43 [facility] [id number]) OT-Instrumental Activities of Daily Living Deficits IADL Deficits Identified Deficits Home Safety Awareness Awareness of Need for Assistance at Home Decreased Awareness Ability to Problem Solve Emergency Unable to Problem Solve Situations Medication Management Medication Management Caregiver Administers Money Management Money Management Caregiver Provides Assistance Meal Preparation Meal Preparation Caregiver Provides Assist Hematology Specialist Hematology Specialist Caregiver Provides Assist M6 OT- IP Functional Cognition Start: 07/10/20 12:27 Freq: Status: Active Protocol: Document 07/10/20 11:20 [facility] (Rec: 07/10/20 12:43 [facility] [id number]) Cognitive Factors Limiting Selfcare Function Cognitive Ability Level of Alertness Alert Patient Orientation Name Attention Span Ability Capable of Focused Attention, Unable to Sustain Attention Ability to Follow Commands Able to Follow One Step Commands with Increased Time, Able to Follow One Step Commands with Repetition Cognitive Comments Cognitive Assessment Comments Pt needing lots on encouragement to participate in therapy. Pt able to follow concrete simple commands. M7 OT- IP Mobility and Balance Start: 07/10/20 12:27 Freq: Status: Active Protocol: Document 07/11/20 16:18 [facility] (Rec: 07/11/20 16:34 [facility] [id number]) OT- Bed Mobility Assessment Sit to Supine Sit to Supine Assist Maximum Assistance,1 Person Assistance OT-Transfer Assessment Sit to and From Stand Sit to and from Stand Maximum Assistance,2 Person Assistance Transfers Transfer Ability Maximum Assistance,2 Person Assistance Technique Transfer Destination Bed,Chair Transfer Technique Stand Step Pivot Devices Transfer Assistive Devices Gait Belt,Front Wheeled Walker Comments Mobility Comments MAX A X2 to stand with FWW and to transfer to the bed. MAX A X1 to help get her legs into the bed. OT- Gait Assessment Comments Gait Ability Comments Transfer only at this time. OT- Balance Assessment Sitting Balance and Reactions Static Sitting Balance Ability Fair Dynamic Sitting Balance Ability Poor Standing Balance and Reactions Static Standing Balance Ability Poor M9 OT- IP Assessment and Plan Start: 07/10/20 12:27 Freq: Status: Active Protocol: Document 07/11/20 16:18 [facility] (Rec: 07/11/20 16:34 [facility] [id number]) OT Summary Assessment and Plan Potential Rehabilitation Potential Fair Analytic Complexity at Evaluation Moderate Summary OT Impairments Pain,Range of Motion,Strength, Balance,Coordination, Functional Cognition, Functional Mobility,Self- Feeding,Grooming,Dressing, Toileting,Bathing,Toilet Transfers,Shower Transfers, Activity Tolerance Progress Towards Goals Progressing Toward Goals,Slow Progress due to Activity Tolerance Assessment Summary Pt able to participate more today for transfer and having less pain in the legs during bed mobility needs. Pt will still benefit from skilled rehab. Goals Self-Feeding Goal Standby Assistance Grooming Goal Standby Assistance Dressing Goal Moderate Assistance Toileting Goal Moderate Assistance Bathing Goal Moderate Assistance Toilet Transfer Goal Moderate Assistance Shower Transfer Goal Moderate Assistance Days to Meet Goals 19 Frequency of Treatment Frequency Of Treatment Once a Day Treatment Plan OT Treatment Plan ADL Training,Functional Cognition Training,Functional Mobility,Patient/Family Education,Discharge Planning Discharge Recommendations OT Discharge Recommendations SNF Rehab Transportation Needs at Discharge Wheelchair/Cabulance
--- NOTE | 2020-07-11 13:29 | ST.IPDYTX ---
Visit Care Team Role Provider Type JED Ventura, TEMPERATURE REGULATOR PYROMETER-C Primary Care Provider Non-Staff Specialty: [facility] Address: [address] [place] [address], [address], [place], [address] Email: Mónica Petersen MD Emergency Provider Physician Referring Provider Specialty: Emergency Medicine Address: [address] [place] [address], [id number] Email: Rafael Mccoy DO Admit Provider Physician Attending Provider Specialty: Internal Medicine Address: [address] [place] [address], [id number] Email: [email or web address] JUNIOR PARALEGAL Dysphagia Treatment JUNIOR PARALEGAL Dysphagia Treatment Start: 07/10/20 11:47 Freq: Status: Active Protocol: Document 07/11/20 13:23 LNK (Rec: 07/11/20 13:29 LNK [id number]) Dysphagia Treatment Session Time Visit Start Time 11:15 Visit Stop Time 11:40 Total Visit Minutes 30 Visit Information Visit Number 25 Setting Assessment Location Acute Care Visit Type Note Type Treatment Note Next Note Type Next Note Type Treatment Note Patient Information Identification Type Name,ID Wristband Subjective Observations Pt was seated up in bedside chair. Treatment Liquids Trialed [facility]iance Solids Trialed Puree Administration Type Cup Single Sip,Self-Feeding Oral Strategies Upright at 90 degrees, Controlled Bite/Sip Size Pharyngeal Strategies Sitting Upright (90 deg),Turn Head Left,Chin Tuck,Double Swallow Treatment Activities Pt looked much better and was feeling better. Clearer voicing. Reliance thick liquids at the bedside. Pt requested tomato juice. She again requested an egg salad sandwich. This JUNIOR PARALEGAL explained again that breads can be difficult to swallow and present a choking risk especially because she is not wearing her lower denture. Reviewed safe swallow strategies with pt: tuck chin and turn head to the left when swallowing to reduce aspiration risk. Assessment Patient Response to Treatment Good Rehab Potential Fair Assessment of Improvement Pt appeared overall to be improved from yesterday. Her voice was clearer. Less SOB while talking today. Diet Recommendations Recommendations Continue Current Diet Liquids Order [facility]iance Medication Recommendations Whole in Carrier Aspiration Precautions Recommended Precautions Upright at 90 Degrees,Small Bites/Sips,Chin Tuck,Left Head Turn,Liquids from Cup Treatment Plan Placement Recommendation after Discharge Detention Facility Appropriate for Continued Therapy Yes: While inpatient Dysphagia Goals Pt will safely tolerate the least restricted diet without s/sx aspiration.
[2020-07-11] MEDS: OXYBUTYNIN 5 MG TABLET PO (17:58)
--- NOTE | 2020-07-11 18:01 | PM.PN.1 ---
Subjective Subjective Interval history: She feels improved today. Denying shortness of breath. No other concerns. Exam Vital Signs (past 8 hours): - 07/11/20 13:38 Pulse Oximetry 94 Oxygen Delivery Method Nasal Cannula Oxygen Flow Rate 0 Narrative Exam Narrative: GENERAL APPEARANCE: Well developed, no acute distress. SKIN: Inspection of the skin reveals no rashes, ulcerations or petechiae. HEENT: Normocephalic atraumatic, extraocular muscles are intact, oropharynx is clear and mucous membranes are dry, neck is supple without adenopathy NECK: Supple and symmetric. CHEST: Normal AP diameter, no tenderness LUNGS: Auscultation of the lungs revealed diminished breath sounds bilaterally CARDIOVASCULAR: regular rate and rhythm, no murmurs ABDOMEN: Soft, nontender, and nondistended. MUSCULOSKELETAL: There was no tenderness or effusions noted. Muscle strength and tone were normal. EXTREMITIES: No cyanosis, clubbing. There is trace lower extremity edema and some chronic venous stasis changes. Chronic appearing bilateral diabetic foot ulcers with no surrounding erythema, induration, or tenderness NEUROLOGIC: Alert and oriented x 3. Normal affect. Broken speech, unclear if this is due to prior stroke or dyspnea at this time. Objective Labs Result Diagrams: 07/11/20 04:55 07/11/20 04:55 Labs: Laboratory Results - last 24 hr 07/11/20 07/11/20 04:55 04:55 WBC 19.7 H RBC 3.90 L Hgb 9.3 L Hct 29.8 L MCV 76.5 L MCH 23.9 L MCHC 31.3 RDW 16.3 H Plt Count 515 H Neut % (Auto) 70.1 Lymph % (Auto) 13.0 L [place] % (Auto) 11.4 Eos % (Auto) 4.7 H Baso % (Auto) 0.8 Neut # (Auto) 34666 H Lymph # (Auto) 2600 [place] # (Auto) 2200 H Eos # (Auto) 900 H Baso # (Auto) 100 Sodium 137 Potassium 4.2 Chloride 100 Carbon Dioxide 32 BUN 16 Creatinine 0.61 Estimated GFR > 60.0 BUN/Creatinine Ratio 26.2 H Glucose 162 H Calcium 8.7 Magnesium 1.8 PFSH Medical History CHF (congestive heart failure) Diabetes Hyperlipidemia Hypertension Peripheral neuropathy PVD (peripheral vascular disease) TIA (transient ischemic attack) Surgical History H/O angioplasty Social History household members: caregiver Smoking Status: Current every day smoker Assessment & Plan Assessment & Plan narrative: Ariana Causey is a 60-year-old female with past medical history of morbid obesity, type 2 diabetes with chronic foot wounds followed by wound care, peripheral vascular disease, prior CVA, probable COPD, and active smoker who presented to the emergency room with increasing weakness over the past 48 hours. 1. Bacterial Pneumonia of the R lung, acute, present on admission - switch zosyn to levaquin to complete pneumonia treatment - continue supplemental oxygen to maintain O2 >88% but no greater than 96%. - speech therapy rec dysphagia diet - f/u full respiratory panel which is pending, COVID 19 testing negative. - Leukocytosis of 32, now improved to 19, previously has been elevated in the 20s chronically, unclear how acute this is as previous lab values were approx 1 year ago. May need outpatient hematology consultation for further evaluation. 2. Acute respiratory failure with hypoxia due to aspiration pneumonia and acute CHF exacerbation - patient currently off oxygen - respiratory status much improved - has elevated BNP and xray consistent with pulmonary edema. ECHO shows dilated RV, EF 60-65%, all consistent with CHF with preserved ejection fraction 3. Probable COPD -patient does not carry known diagnosis of COPD, no home medications or inhalers. - RT evaluate and treat, takes no home inhalers. continue albuterol prn. 4. history of CVA - continue plavix, lipitor 80 mg - speech therapy as noted above. 5. Anemia, acute, present on admission - previous CBC with Hg of >12 but this was approximately 1 year ago, today this is 9.5. She reports no melena or hematochezia. No emesis reported. - continue to monitor, check iron panel. Recommend outpatient evaluation unless evidence of active bleeding. 6. Leukocytosis, acute on chronic, present on admission - probable acute rise secondary to pneumonia, but has been chronically elevated. Prior workup with wound care done here shows no evidence of multiple myeloma. Recommend outpatient hematology consultation as noted above. 7. DM, chronic - continue home lantus, although given borderline glucose today will reduce slightly in the setting of possible infection to 40 BID from 55 U BID. 8. PVD - continue plavix, statin 9. HTN, will hold home losartan currently in setting of possible low BP. 10. Chronic LE diabetic foot ulcers - continue local wound care, does not appear to be actively infected. 11. Chronic pain - resume cymbalta Code: DNR, surrrogate / DPOA is patient's granddaughter. Dispo: stable for discharge DVT: Lovenox daily Quality VTE Deep Vein Thrombosis/Pulmonary Embolism Present on Admission: No
[2020-07-11] MEDS: ATORVASTATIN 20 MG TABLET 80 MG PO (20:58)
[2020-07-12 00:26] VITALS: BP 112/67; PULSE 98; RESP 20; TEMP 36.4; O2SAT 95
[2020-07-12 03:36] VITALS: BP 125/65; PULSE 84; RESP 20; TEMP 36.3; O2SAT 97
[2020-07-12 05:17] LABS: Hematocrit 30.4 % (36-46); Hemoglobin 9.3 g/dL (12.0-16.0); Mean Corpuscular HGB Conc 30.6 % (30-36); Mean Corpuscular Hemoglobin 23.6 PG (26-34); Mean Corpuscular Volume 77.2 fL (80-100); Platelet Count 583 X10^3/uL (150-400); Red Blood Cell Count 3.94 X10^6/uL (4.0-5.2); Red Cell Distribution Width 16.7 % (11.6-14.8); White Blood Cell Count 18.5 X10^3/uL (4.5-11.0)
[2020-07-12] MEDS: PANTOPRAZOLE 40 MG TABLET PO (05:21)
[2020-07-12 05:41] LABS: Chloride 99 mmol/L (98-107); HEMOLYSIS < 15 (0-50)
[2020-07-12 05:43] LABS: Blood Urea Nitrogen 18 mg/dL (7-17); Calcium 8.9 mg/dL (8.4-10.2); Carbon Dioxide 35 mmol/L (22-32); Estimated Glomerular Filt Rate > 60.0 mL/min (>60); Glucose 177 mg/dL (80-110); Potassium 4.3 mmol/L (3.4-5.1); Sodium 138 mmol/L (137-145)
[2020-07-12 07:50] VITALS: BP 115/70; PULSE 89; RESP 20; TEMP 36.1; O2SAT 95
--- NOTE | 2020-07-12 08:36 | CM.DPC ---
Addendum entered by Ava Curran LPN 07/12/20 12:25: [facility] staff Leigh and Kathy. Pt has had her updated assessment with Calvin over the phone and with faxed info sent to him to collaborate info. Kathy has brought in pt's w/c and walker. Kathy confirmed she brought in all home medications including diabetic supplies from her prior dwelling and JESSICA Ruiz confirms these are in the pharmacy. They are to go with her to the [facility]. DC orders are signed, faxed to [facility] and will be sent over to the facility with pt. She will be picked up before 1330 (and if not ready then would have to be tomorrow, per [facility] staff). Called pharmacy who are processing the rapid Covid test now. Will fax this to [facility] when in place. Will follow prn until pt leaves. Pt remains agreeable to the d/c. She expresses understanding that she will not be able to smoke at the facility. Will update JESSICA Morrison when she is available. Addendum entered by Ava Curran LPN 07/12/20 12:14: Have continued to work in collaboration with pt, her daughter Kathy, Calvin Villasenor CM and RIO Original Note: DCP: continued. Jennie is here now as planned from [facility] to assess pt for consideration of admission. Introduced her to pt and left them to discussion. Will be following.
--- NOTE | 2020-07-12 09:19 | PT.IPTN ---
Current Diagnoses Acute respiratory failure with hypoxia (07/08/20) Physical Therapy Treatment Note M2 PT-IP Current Condition Start: 07/10/20 11:50 Freq: NEEDED Status: Discharge Protocol: Document 07/10/20 10:15 AB (Rec: 07/10/20 12:15 AB [id number]) Physical Therapy Current Condition Current Condition Evaluation Date 07/10/20 Treatment Diagnosis aspiration PNA; h/o CVA with R edmund; difficulty in walking Onset Date 07/08/20 Precautions Other Precautions falls; B lower leg wrapped with dressing: pt stated that she has chronic open wounds on B legs M3 PT-IP Subjective Start: 07/10/20 11:50 Freq: NEEDED Status: Discharge Protocol: Document 07/12/20 08:52 SP (Rec: 07/12/20 15:10 SP [id number]) Subjective Physical Therapy Visit Type Type Treatment Note Visit Start Time 08:52 Visit Stop Time 09:19 Total Visit Minutes 27 Notes Daughter in room during tx. STOCKLAYER assisted with SPT using FWW. Number of BENEFIT SPECIALIST Visits 2 Physical Therapy Visit Comments Patient Comments Pt willing to work with therapy. Therapy Pain Assessment Pain When Pain Assessed During Mobility Location Bilateral Foot Intensity 0 Scale Used Numeric (0 - 10) Pain Management Techniques Distraction,Modification of Treatment,Re-positioning, Timing of Activity with Medications M4 PT-IP Mobility and Gait Start: 07/10/20 11:50 Freq: NEEDED Status: Discharge Protocol: Document 07/12/20 08:52 SP (Rec: 07/12/20 15:10 SP [id number]) PT-Bed Mobility Assessment Supine to Sit Supine to Sit Maximum Assistance,1 Person Assistance,Head of Bed Elevated,Bedrails Scooting Scooting to Edge of Bed Maximum Assistance PT-Transfer Assessment Sit to and From Stand Sit to and from Stand Moderate Assistance,Maximum Assistance,2 Person Assistance ,Use of Upper Extremities Equipment Transfer Assistive Device Gait Belt,Front Wheeled Walker Orthotic/Prosthetic Devices or Brace: No Transfers Transfer Destination Wheelchair Transfer Technique Stand Step Pivot Transfer Ability Level of Assist Moderate Assistance,Maximum Assistance,2 Person Assistance ,Use of Upper Extremities Comments Mobility Comments Complete Elevated supine> sitting with use of bed rail RUE and LUE pull from therapist hand and assist of trunk and LE positioning, scoot to EOB Max A of 1 person while using transfer pad. Sit <>stand x2 from before SPT Mod A of 1 and Max A of 2nd person cued wt shift then pivot feet to L with Max cuing cuing for upright posture quad and glut facilitation and backing up to w/c, self reposition FWW, Max A x1 for slow descent into chair for safety. Scooted back in chair with Mod A x1 each side. Pt had call light, w/c chair locked/alarmed and all needs in reach. Speech therapist w/ student and daughter in room before left. BENEFIT SPECIALIST readjusted L foot plate higher for increased support. Gait Assessment Gait Gait Assistance Required: Moderate Assistance,Maximum Assistance,2 Person Assist Distance (Feet) 2 Able to Maintain Weight Bearing Status Yes During Gait Assistive Devices Assistive Device Gait Belt,Front Wheeled Walker Orthotic/Prosthetic Devices or Brace: No Gait Deviations General Gait Pattern Decreased Stride Length, Decreased Feet Clearance, Flexed Trunk,Step-to Gait Factors Limiting Gait Function Factors Limiting Gait Function Decreased Activity Tolerance, Decreased Sensation,Decreased Strength,Limited Range of Motion,Pain,Poor Balance,Poor Safety Awareness Comments Gait Comments See mobility comments. PT-Balance Assessment Sitting Balance and Reactions Static Sitting Balance Ability Good Dynamic Sitting Balance Ability Fair Standing Balance and Reactions Static Standing Balance Ability Poor Dynamic Standing Balance Ability Poor Device Used FWW M5 PT-IP Objective Assessments Start: 07/10/20 11:50 Freq: NEEDED Status: Discharge Protocol: Document 07/10/20 10:15 AB (Rec: 07/10/20 12:15 AB [id number]) Orientation Orientation/Cognition Level of Alertness Alert Orientation Name Language Function Ability Hard of Hearing Safety Awareness Decreased Safety Awareness Gross Range of Motion Lower Extremity ROM Assessment Within Functional Limits Strength Lower Extremity Strength Assessment Right Impaired Hip 3+/5 Knee 3+/5 Ankle 3-/5 Muscle Tone Muscle Tone WNL Yes M6 PT-IP Treatment Start: 07/10/20 11:50 Freq: NEEDED Status: Discharge Protocol: Document 07/12/20 08:52 SP (Rec: 07/12/20 15:10 SP [id number]) Physical Therapy Treatment Education Education Provided Weight Bearing Status,Safety Other Treatments Other Treatment Performed Pt required decreased LE assist during bed mobility. M7 PT-IP Assessment and Plan Start: 07/10/20 11:50 Freq: NEEDED Status: Discharge Protocol: Document 07/12/20 08:52 SP (Rec: 07/12/20 15:10 SP [id number]) PT Summary Assessment and Plan Potential Rehabilitation Potential Good Status of Condition at Evaluation Evolving Summary Impairments Pain,ROM,Strength,Balance, Coordination,Sensation,Tone, Cognition,Bed Mobility, Transfers,Gait,Activity Tolerance Progress Towards Goals Slow Progress due to Pain,Slow Progress due to Activity Tolerance Assessment Summary Pt required Max A x1 bed mob and scoot, sit<> stand and SPT Max A x1 Mod A x1 using FWW with improved RLE WB stability during transfer today. Pt will benefit from SNF rehab to improve overall strength, activity tolerance and mobility assistance. Goals Bed Mobility Goal Minimal Assistance Transfer Goal Minimal Assistance,Front Wheeled Walker Gait Goal Minimal Assistance,Front Wheel Walker Gait Distance 25 Other Goals improve transfers using FWW CGA and ambulation using FWW 50 ft min A Days to Meet Goals 5 Frequency of Treatment Frequency Of Treatment Once a Day Treatment Plan Physical Therapy Treatment Plan Bed Mobility Training,Transfer Training,Gait Training, Therapeutic Exercise,Balance Retraining,Discharge Planning, Hot or Cold Pack,Neuromuscular Re-ed,Coordination Retraining ,Manual Therapy Other Recommendations and Next Treatment bed mobility, transfers using Focus fWW. Precautions Other Precautions falls; B feet wrapped with dressing: pt stated that she has chronic open wounds on B legs Recommendations To Nursing Amount of Assist Needed 2 Person Assist Discharge Recommendations PT Discharge Recommendations SNF Rehab Transportation Needs at Discharge Wheelchair/Cabulance
[2020-07-12] MEDS: CLOPIDOGREL 75 MG TABLET PO (09:31)
[2020-07-12] MEDS: FUROSEMIDE 40 MG/4 ML VIAL IV (09:31)
[2020-07-12] MEDS: FERROUS SULFATE 325 MG TABLET PO (09:31)
[2020-07-12] MEDS: DULOXETINE 20 MG CAPSULE PO (09:31)
[2020-07-12] MEDS: CYCLOBENZAPRINE 10 MG TABLET PO (09:31)
[2020-07-12] MEDS: SODIUM CHLORIDE 0.9% FLUSH 10 ML IV (09:32)
[2020-07-12] MEDS: INSULIN GLARGINE 100 UNIT/ML 3ML PEN 15 UNIT SUBCUT (09:39)
[2020-07-12] MEDS: INSULIN ASPART 100 UNIT/ML INSULN PEN SUBCUT ×2 (09:40→12:48)
--- NOTE | 2020-07-12 10:21 | ST.IPDYTX ---
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 Treatment Liquids Trialed Pioche Solids Trialed Puree Administration Type Cup Single Sip,Self-Feeding Oral Strategies Upright at 90 degrees, Controlled Bite/Sip Size Pharyngeal Strategies Sitting Upright (90 deg),Turn Head Left,Chin Tuck,Double Swallow Treatment Activities Pt working with PT when this therapist and student therapist entered room. Pt continuing o improve. She reported that she had trouble with the eggs, which had some texture (dysphagia mechanical) . Observed pt take a spoonful of the eggs which left residue and were more difficult to clear from mouth. Pt reported that she does not have a lower denture. Recommend that she remain on a puree diet and NTL to reduce aspiration risk . Reviewed safe swallow strategies with pt: tuck chin and turn head to the left when swallowing to reduce aspiration risk. Assessment Patient Response to Treatment Good Rehab Potential Fair Assessment of Improvement Pt agin appeared overall to be improved from yesterday. Diet Recommendations Recommendations Continue Current Diet Liquids Order Pioche Medication Recommendations Whole in Carrier Aspiration Precautions Recommended Precautions Upright at 90 Degrees,Small Bites/Sips,Chin Tuck,Left Head Turn,Liquids from Cup Treatment Plan Placement Recommendation after Discharge Snf Facility Appropriate for Continued Therapy Yes: While inpatient Dysphagia Goals Pt will safely tolerate the least restricted diet without s/sx aspiration.
[2020-07-12] MEDS: levoFLOXacin 250 MG TABLET 750 MG PO (11:28)
[2020-07-12 12:39] LABS: COVID19 -Nasal RAPID Negative (Negative)
--- NOTE | 2020-07-12 20:02 | PM.DS.1 ---
History of Present Illness History of Present Illness Chief complaint: possibly septic,send by Narrative: Per Gabby and P from Rafael Mccoy: Ariana Causey is a 60-year-old female with past medical history of morbid obesity, type 2 diabetes with chronic foot wounds followed by wound care, peripheral vascular disease, prior CVA, probable COPD, and active smoker who presented to the emergency room with increasing weakness over the past 48 hours. She states that she is unable to get out of her bed recently. At her baseline she is usually able to get into a wheelchair, but not much more than this. She states that her house is a mess in an is difficult to get around in. Patient denies shortness of breath and states that her current speech pattern is typical for her after her stroke, although she states it has been a little bit more difficult to speak over the past day, but she is unable to further expound on this feeling. Her wound care nursing caregivers wanted her to come in for the prior 2 days. She reports vomiting yesterday morning, but no nausea, or abdominal pain. The caregivers called her daughter who brought her from [place] where she lives. Her shortness of breath is worse when lying flat. She denies any chest pain, palpitations, abdominal pain, dysuria, cough. The patient has chronic issues with swallowing and states that she mostly follows her recommendations from speech therapists. In the emergency room, the patient was borderline hypotensive but did respond to 1 L fluid bolus. She was afebrile, but borderline tachycardic and tachypneic as high as a respiratory rate of 40. She had O2 saturations that dropped to 89% on 2 L, this was increased to 4 L with improvement in her O2 saturations. Initial laboratory evaluation revealed a leukocytosis of 32.3 K, hemoglobin of 9.5, platelet of 543. Coagulation studies were unremarkable. Chemistries were unremarkable. Troponin was negative. ProBNP was mildly elevated at 577, procalcitonin was indeterminate at 0.24. Urinalysis was not indicative of an infection. Chest x-ray showed a right-sided infiltrate consistent with pneumonia. COVID-19 testing was negative. Upon arrival to the hospital floor the patient was still having 1-2 word dyspnea when speaking, but she did not complain of shortness of breath. Her pulse oximetry showed a very poor waveform, during periods of adequate waveform she was noted to not require supplemental oxygen to maintain oxygen saturations of above 88%. She did, however, desaturate to 85% but she had a poor waveform at those times. Patient was admitted to Medicine under observation for probable aspiration pneumonia. Discharge Providers Provider Date of admission: 07/08/20 14:53 Discharge Date: 07/12/20 Primary care physician: JED Ventura FNP-C Consults: 07/08/20 17:56 Consult to Speech Therapy Evaluate & Treat Comment: Physician Instructions: Evaluate and treat 07/09/20 10:42 Consult to Dietitian, Adult Routine Comment: Reason For Exam: chronic wounds and aspiration pneumonia 07/10/20 08:15 Consult to Physical Therapy Evaluate & Treat Comment: Physician Instructions: Evaluate and Treat 07/10/20 08:20 Consult to Occupational Therapy Evaluate & Treat Comment: Physician Instructions: Evaluate and treat Discharge provider: Prashant Mattson MD Summary Hospital Course Discharge Diagnosis: 1. Aspiration pneumonia, bacterial, likely gram negative 2. Acute respiratory failure with hypoxemia 3. Probable COPD 4. Acute diastolic CHF exacerbation 5. History of CVA 6. Anemia 7. Chronically elevated leukocytosis 8. Type 2 DM 9. Peripheral vascular disease 10. Hypertension 11. Chronic lower extremity wounds 12. Chronic pain 13. Depression 14. Dysphagia Hospital Course: She was initially admitted with acute respiratory failure with hypoxemia requiring oxygen. She was initially on broad antibiotics with zosyn for a likely aspiration pneumonia as she has been having difficulty with following a dysphagia diet. On day of discharge she was able to be transitioned off oxygen and to complete a 7 day course of antibiotics with levaquin. She was also found to have likely diastolic CHF exacerbation. ECHO showed a dilated RV with normal EF. Her BNP was initially elevated and she had evidence of pulmonary edema on xray. Because of this she was also diuresed well with IV lasix. There was a question whether she might also have COPD, but her presentation did not appear to be a COPD exacerbation. She was noted to have iron deficiency anemia, and was started on iron replacement. She should have further workup as an outpatient if indicated. In addition, she has been noted to have chronice leukocytosis, including a discharge WBC of 18, which appears to be near baseline. She should have consideration for oncology referral to further work this up if her white count remains elevated. She has chronic lower extremity wounds and will need outpatient wound care. She had a difficult situation at home with getting care, and she was able to be discharge to assisted living facility. Status at Discharge Cognitive/behavioral status at discharge: oriented Functional status at discharge: uses cane/walker Overall status at discharge: patient is progressing back to baseline Exam Vital Signs (past 8 hours): Oxygen Delivery Method Nasal Cannula Oxygen Flow Rate 2 Narrative Exam Narrative: GENERAL APPEARANCE: Well developed, no acute distress. SKIN: Inspection of the skin reveals no rashes, ulcerations or petechiae. HEENT: Normocephalic atraumatic, extraocular muscles are intact, oropharynx is clear and mucous membranes are dry, neck is supple without adenopathy NECK: Supple and symmetric. CHEST: Normal AP diameter, no tenderness LUNGS: Auscultation of the lungs revealed diminished breath sounds bilaterally CARDIOVASCULAR: regular rate and rhythm, no murmurs ABDOMEN: Soft, nontender, and nondistended. MUSCULOSKELETAL: There was no tenderness or effusions noted. Muscle strength and tone were normal. EXTREMITIES: No cyanosis, clubbing. There is trace lower extremity edema and some chronic venous stasis changes. Chronic appearing bilateral diabetic foot ulcers with no surrounding erythema, induration, or tenderness NEUROLOGIC: Alert and oriented x 3. Normal affect. Broken speech, unclear if this is due to prior stroke or dyspnea at this time. Objective Labs Result Diagrams: 07/12/20 04:55 07/12/20 04:55 Labs: Laboratory Results - last 24 hr 07/12/20 07/12/20 07/12/20 04:55 04:55 12:22 WBC 18.5 H RBC 3.94 L Hgb 9.3 L Hct 30.4 L MCV 77.2 L MCH 23.6 L MCHC 30.6 RDW 16.7 H Plt Count 583 H Sodium 138 Potassium 4.3 Chloride 99 Carbon Dioxide 35 H BUN 18 H Creatinine 0.62 Estimated GFR > 60.0 BUN/Creatinine Ratio 29.0 H Glucose 177 H Calcium 8.9 SARS-CoV-2 (PCR) Negative [facility] Medical History CHF (congestive heart failure) Diabetes Hyperlipidemia Hypertension Peripheral neuropathy PVD (peripheral vascular disease) TIA (transient ischemic attack) Surgical History H/O angioplasty Social History household members: caregiver Smoking Status: Current every day smoker Discharge Plan Discharge Plan Patient Disposition: Assisted Living Provider Discharge Comment: Ms. Causey was admitted with trouble breathing and found to have a pneumonia likely from aspiration. She was also found to have an acute CHF exacerbation. She was given antibiotics and her pneumonia improved. She was also given lasix and her respiratory status further improved. She worked with speech therapy who recommended a dysphagia diet. She has chronic foot wounds and will need continued wound care. She will need 2 more days of antibiotics to complete her dose. Discharge orders & Medications Discharge Orders: Discharge (Order); Ordered 07/12/20 Ordered By: Prashant Mattson Prescriptions: New ferrous sulfate 325 mg (65 mg iron) Tablet 325 mg PO BIDWM Qty: 30 RF: 0 duloxetine [Cymbalta] 20 mg Capsule,Delayed Release(Dr/Ec) 20 mg PO DAILY Qty: 30 RF: 0 levofloxacin 250 mg Tablet 750 mg PO DAILY@1000 Qty: 2 RF: 0 citalopram 40 mg tablet 40 mg PO DAILY Qty: 30 RF: 0 Continued acetaminophen [Tylenol Extra Strength] 500 MG tablet 1 - 2 tab PO PRN PRN (Reason: pain/ fever) Qty: 0 RF: 0 cyclobenzaprine 10 MG tablet 10 mg PO BID Qty: 0 RF: 0 meloxicam 15 MG tablet 15 mg PO QPM Qty: 0 RF: 0 furosemide 20 MG tablet 20 mg PO QDAY Qty: 0 RF: 0 atorvastatin 80 mg tablet 80 mg PO DAILY RF: 0 clopidogrel 75 mg tablet 75 mg PO DAILY RF: 0 meclizine 25 mg Tablet 25 mg PO TID PRN (Reason: Vertigo) RF: 0 pantoprazole 40 mg tablet,delayed release (DR/EC) 40 mg PO QAM RF: 0 losartan 25 mg tablet 25 mg PO DAILY RF: 0 zolpidem 10 mg tablet 10 mg PO QPM RF: 0 oxybutynin chloride 5 mg tablet 5 mg PO QPM RF: 0 Lantus Solostar U-100 Insulin 100 unit/mL (3 mL) insulin pen 55 unit SUBCUT BID RF: 0 Victoza 3-Nicho 0.6 mg/0.1 mL (18 mg/3 mL) pen injector 1.8 mg SUBCUT QWEEK RF: 0 Discontinued citalopram 40 mg tablet 40 mg PO DAILY RF: 0 Follow up/Referrals: Loly Zambrano ARNP, PHYSIOTHERAPY ASSISTANT-C [Primary Care Provider] - Discharge Health Status Multidrug resistant organism: No MDRO Diet/Activity/Treatments Diet comment: per speech therapy, dysphagia diet Discharge Data Primary Care Provider: Loly Zambrano Quality VTE Deep Vein Thrombosis/Pulmonary Embolism Present on Admission: No
== END 2020-07-12 14:00 | DRG 189 ==
LOC: ED 14:54 → AC 14:54
PROVIDERS: Internal Medicine; Nurse Practitioner Adult Health; Admitting Provider Internal Medicine; Emergency Provider Emergency Medicine; PCP Nurse Practitioner Family; Referring Provider Emergency Medicine; Visit Provider Internal Medicine
DX: J96.01 Acute respiratory failure with hypoxia (principal); J69.0 Pneumonitis due to inhalation of food and vomit; J15.8 Pneumonia due to other specified bacteria; I50.33 Acute on chronic diastolic (congestive) heart failure; L97.429 Non-pressure chronic ulcer of left heel and midfoot with unspecified severity; L97.419 Non-pressure chronic ulcer of right heel and midfoot with unspecified severity; J44.9 Chronic obstructive pulmonary disease, unspecified; E78.5 Hyperlipidemia, unspecified; E11.42 Type 2 diabetes mellitus with diabetic polyneuropathy; E11.51 Type 2 diabetes mellitus with diabetic peripheral angiopathy without gangrene; E11.621 Type 2 diabetes mellitus with foot ulcer; Z79.4 Long term (current) use of insulin; I69.391 Dysphagia following cerebral infarction; I69.322 Dysarthria following cerebral infarction; R13.10 Dysphagia, unspecified; E66.01 Morbid (severe) obesity due to excess calories; Z68.39 Body mass index [BMI] 39.0-39.9, adult; Z20.822 Contact with and (suspected) exposure to COVID-19; F17.210 Nicotine dependence, cigarettes, uncomplicated; Z99.3 Dependence on wheelchair; Z71.3 Dietary counseling and surveillance; D50.9 Iron deficiency anemia, unspecified
CPT/HCPCS: 36415; 51701; 71045; 80048; 80053; 81001; 82550; 82962; 83540; 83550; 83605; 83690; 83735; 83880; 84145; 84484; 85025; 85027; 85610; 85730; 87040; 87070; 87077; 87205; 87633; 87635; 92526; 92610; 93005; 93306; 94667; 94762; 96365; 96367; 97162; 97166; 97530; 99285; 99406; C9803; J1650; J1940; J2543

== ENCOUNTER → 2020-07-17 12:03 | Outpatient (CLI) | payer OTHER, MEDICAID, SELFPAY ==
[2020-07-08 17:00] VITALS: BMI 39.2
== END ==
PROVIDERS: PCP Nurse Practitioner Family; Referring Provider Nurse Practitioner Family; Visit Provider Family Medicine
DX: E11.621 Type 2 diabetes mellitus with foot ulcer (principal); L97.412 Non-pressure chronic ulcer of right heel and midfoot with fat layer exposed; L97.512 Non-pressure chronic ulcer of other part of right foot with fat layer exposed; L97.522 Non-pressure chronic ulcer of other part of left foot with fat layer exposed; L97.422 Non-pressure chronic ulcer of left heel and midfoot with fat layer exposed; I50.31 Acute diastolic (congestive) heart failure; F17.200 Nicotine dependence, unspecified, uncomplicated
CPT/HCPCS: 11042; 11045; 99213

== ENCOUNTER → 2020-07-31 08:02 | Outpatient (ROUT) | payer OTHER, MEDICAID, SELFPAY ==
[2020-07-08 17:00] VITALS: BMI 39.2
[2020-07-31 09:02] LABS: Add Manual Diff / Slide Review NO; Basophils Absolute Auto 100 /uL (0-100); Basophils Percent Auto 0.5 % (0-2); Eosinophils Absolute Auto 800 /uL (0-450); Hematocrit 32.3 % (36-46); Hemoglobin 10.3 g/dL (12.0-16.0); Lymphocytes Absolute Auto 2600 /uL (1100-4500); Lymphocytes Percent Auto 13.5 % (25-40); Mean Corpuscular HGB Conc 31.9 % (30-36); Mean Corpuscular Hemoglobin 24.6 PG (26-34); Mean Corpuscular Volume 77.1 fL (80-100); Monocytes Absolute Auto 1800 /uL (0-900); Monocytes Percent Auto 9.1 % (3-14); Neutrophils Absolute Auto 14200 /uL (1500-7000); Neutrophils Percent Auto 72.9 % (50-75); Platelet Count 476 X10^3/uL (150-400); Red Blood Cell Count 4.19 X10^6/uL (4.0-5.2); Red Cell Distribution Width 17.6 % (11.6-14.8); White Blood Cell Count 19.5 X10^3/uL (4.5-11.0)
[2020-07-31 09:11] LABS: Alanine Aminotransferase 12 IU/L (<35); Albumin 3.5 g/dL (3.5-5.0); Alkaline Phosphatase 123 U/L (38-126); Aspartate Aminotransferase 17 IU/L (14-36); BUN Creatinine Ratio 21.4 (6-22); Bilirubin Total 0.3 mg/dL (0.2-1.3); Blood Urea Nitrogen 12 mg/dL (7-17); Calcium 9.4 mg/dL (8.4-10.2); Carbon Dioxide 31 mmol/L (22-32); Chloride 98 mmol/L (98-107); Estimated Glomerular Filt Rate > 60.0 mL/min (>60); Globulin 3.6 g/dL (1.7-4.1); Glucose 77 mg/dL (80-110); HEMOLYSIS < 15 (0-50); Sodium 137 mmol/L (137-145); Total Protein 7.1 g/dL (6.3-8.2)
== END ==
PROVIDERS: PCP Nurse Practitioner Family; Visit Provider Internal Medicine
DX: D10.9 Benign neoplasm of pharynx, unspecified (principal)
CPT/HCPCS: 36415; 80053; 85025

== ENCOUNTER → 2020-07-31 14:43 | Outpatient (CLI) | payer OTHER, MEDICAID, SELFPAY ==
[2020-07-08 17:00] VITALS: BMI 39.2
== END ==
PROVIDERS: PCP Nurse Practitioner Family; Referring Provider Nurse Practitioner Family; Visit Provider Family Medicine
DX: E11.621 Type 2 diabetes mellitus with foot ulcer (principal); L97.412 Non-pressure chronic ulcer of right heel and midfoot with fat layer exposed; L97.522 Non-pressure chronic ulcer of other part of left foot with fat layer exposed; L97.422 Non-pressure chronic ulcer of left heel and midfoot with fat layer exposed; L97.512 Non-pressure chronic ulcer of other part of right foot with fat layer exposed; E11.51 Type 2 diabetes mellitus with diabetic peripheral angiopathy without gangrene; E11.40 Type 2 diabetes mellitus with diabetic neuropathy, unspecified; F17.200 Nicotine dependence, unspecified, uncomplicated
CPT/HCPCS: 11042; 11045; 87070; 87075; 87077; 87147; 87186; 87205; 99214

== ENCOUNTER → 2020-08-03 16:05 | Outpatient (ROUT) | payer OTHER, MEDICAID, SELFPAY ==
[2020-07-08 17:00] VITALS: BMI 39.2
[2020-08-06 11:21] LABS: Fecal Immunochemical Test Negative (Negative)
== END ==
PROVIDERS: PCP Nurse Practitioner Family; Visit Provider Nurse Practitioner Family
DX: K92.0 Hematemesis (principal)
CPT/HCPCS: 82274

== ENCOUNTER → 2020-08-21 11:13 | Outpatient (CLI) | payer OTHER, MEDICAID, SELFPAY ==
[2020-07-08 17:00] VITALS: BMI 39.2
== END ==
PROVIDERS: PCP Nurse Practitioner Family; Referring Provider Nurse Practitioner Family; Visit Provider Family Medicine
DX: E11.621 Type 2 diabetes mellitus with foot ulcer (principal); L97.412 Non-pressure chronic ulcer of right heel and midfoot with fat layer exposed; L97.512 Non-pressure chronic ulcer of other part of right foot with fat layer exposed; L97.522 Non-pressure chronic ulcer of other part of left foot with fat layer exposed; L97.422 Non-pressure chronic ulcer of left heel and midfoot with fat layer exposed; I89.0 Lymphedema, not elsewhere classified; I87.2 Venous insufficiency (chronic) (peripheral); F17.200 Nicotine dependence, unspecified, uncomplicated
CPT/HCPCS: 11042; 11045; 87070; 87075; 87077; 87147; 87186; 87205; 99214

== ENCOUNTER → 2020-08-28 11:30 | Outpatient (CLI) | payer OTHER, MEDICAID, SELFPAY ==
[2020-07-08 17:00] VITALS: BMI 39.2
== END ==
PROVIDERS: PCP Nurse Practitioner Family; Referring Provider Nurse Practitioner Family; Visit Provider Family Medicine
DX: E11.621 Type 2 diabetes mellitus with foot ulcer (principal); L97.412 Non-pressure chronic ulcer of right heel and midfoot with fat layer exposed; L97.512 Non-pressure chronic ulcer of other part of right foot with fat layer exposed; L97.521 Non-pressure chronic ulcer of other part of left foot limited to breakdown of skin; L97.421 Non-pressure chronic ulcer of left heel and midfoot limited to breakdown of skin; L08.9 Local infection of the skin and subcutaneous tissue, unspecified; E11.51 Type 2 diabetes mellitus with diabetic peripheral angiopathy without gangrene; E11.40 Type 2 diabetes mellitus with diabetic neuropathy, unspecified; F17.200 Nicotine dependence, unspecified, uncomplicated; D89.2 Hypergammaglobulinemia, unspecified; D72.828 Other elevated white blood cell count
CPT/HCPCS: 11042; 87070; 87075; 87077; 87147; 87186; 87205; 97597; 97598; 99214

== ENCOUNTER → 2020-09-04 16:09 | Outpatient (CLI) | payer OTHER, MEDICAID, SELFPAY ==
[2020-07-08 17:00] VITALS: BMI 39.2
== END ==
PROVIDERS: PCP Nurse Practitioner Family; Referring Provider Nurse Practitioner Family; Visit Provider Family Medicine
DX: E11.621 Type 2 diabetes mellitus with foot ulcer (principal); L97.412 Non-pressure chronic ulcer of right heel and midfoot with fat layer exposed; L97.512 Non-pressure chronic ulcer of other part of right foot with fat layer exposed; L97.522 Non-pressure chronic ulcer of other part of left foot with fat layer exposed; L03.116 Cellulitis of left lower limb; L03.115 Cellulitis of right lower limb; L97.418 Non-pressure chronic ulcer of right heel and midfoot with other specified severity; L97.428 Non-pressure chronic ulcer of left heel and midfoot with other specified severity
CPT/HCPCS: 99213; 99214

== ENCOUNTER → 2020-09-12 14:46 | Outpatient (CLI) | payer OTHER, MEDICAID, SELFPAY ==
[2020-07-08 17:00] VITALS: BMI 39.2
== END ==
PROVIDERS: PCP Nurse Practitioner Family; Referring Provider Registered Nurse; Visit Provider Family Medicine
DX: E11.621 Type 2 diabetes mellitus with foot ulcer (principal); L97.419 Non-pressure chronic ulcer of right heel and midfoot with unspecified severity; L97.512 Non-pressure chronic ulcer of other part of right foot with fat layer exposed; L97.522 Non-pressure chronic ulcer of other part of left foot with fat layer exposed; L97.422 Non-pressure chronic ulcer of left heel and midfoot with fat layer exposed; R60.0 Localized edema
CPT/HCPCS: 11042; 11045; 87070; 87075; 87077; 87186; 87205; 99214

== ENCOUNTER → 2020-10-03 11:40 | Outpatient (CLI) | payer OTHER, MEDICAID, SELFPAY ==
[2020-07-08 17:00] VITALS: BMI 39.2
== END ==
PROVIDERS: PCP Nurse Practitioner Family; Referring Provider Nurse Practitioner Family; Visit Provider Family Medicine
DX: E11.621 Type 2 diabetes mellitus with foot ulcer (principal); L97.412 Non-pressure chronic ulcer of right heel and midfoot with fat layer exposed; L97.512 Non-pressure chronic ulcer of other part of right foot with fat layer exposed; L97.422 Non-pressure chronic ulcer of left heel and midfoot with fat layer exposed; I89.0 Lymphedema, not elsewhere classified; I87.2 Venous insufficiency (chronic) (peripheral); I70.293 Other atherosclerosis of native arteries of extremities, bilateral legs; R60.0 Localized edema; E11.51 Type 2 diabetes mellitus with diabetic peripheral angiopathy without gangrene; F17.200 Nicotine dependence, unspecified, uncomplicated
CPT/HCPCS: 11042; 11045; 99213

== ENCOUNTER → 2020-10-10 10:44 | Outpatient (CLI) | payer OTHER, MEDICAID, SELFPAY ==
[2020-07-08 17:00] VITALS: BMI 39.2
== END ==
PROVIDERS: PCP Nurse Practitioner Family; Referring Provider Nurse Practitioner Family; Visit Provider Family Medicine
DX: E11.621 Type 2 diabetes mellitus with foot ulcer (principal); L97.422 Non-pressure chronic ulcer of left heel and midfoot with fat layer exposed; L97.512 Non-pressure chronic ulcer of other part of right foot with fat layer exposed; L97.412 Non-pressure chronic ulcer of right heel and midfoot with fat layer exposed; I89.0 Lymphedema, not elsewhere classified; I87.2 Venous insufficiency (chronic) (peripheral); I70.293 Other atherosclerosis of native arteries of extremities, bilateral legs; L08.9 Local infection of the skin and subcutaneous tissue, unspecified; F17.200 Nicotine dependence, unspecified, uncomplicated
CPT/HCPCS: 11042; 11045; 87070; 87075; 87077; 87147; 87186; 87205; 99214

== ENCOUNTER → 2020-10-16 08:13 | Outpatient (ROUT) | payer OTHER, MEDICAID, SELFPAY ==
[2020-07-08 17:00] VITALS: BMI 39.2
[2020-10-16 08:38] LABS: Add Manual Diff / Slide Review NO; Basophils Absolute Auto 100 /uL (0-100); Basophils Percent Auto 0.6 % (0-2); Eosinophils Absolute Auto 800 /uL (0-450); Eosinophils Percent Auto 3.4 % (2-4); Hematocrit 30.6 % (36-46); Hemoglobin 9.7 g/dL (12.0-16.0); Lymphocytes Absolute Auto 2800 /uL (1100-4500); Mean Corpuscular HGB Conc 31.8 % (30-36); Mean Corpuscular Hemoglobin 24.7 PG (26-34); Mean Corpuscular Volume 77.6 fL (80-100); Monocytes Absolute Auto 1800 /uL (0-900); Monocytes Percent Auto 8.1 % (3-14); Neutrophils Absolute Auto 17400 /uL (1500-7000); Neutrophils Percent Auto 75.9 % (50-75); Platelet Count 530 X10^3/uL (150-400); Red Blood Cell Count 3.94 X10^6/uL (4.0-5.2); Red Cell Distribution Width 16.9 % (11.6-14.8); White Blood Cell Count 22.9 X10^3/uL (4.5-11.0)
[2020-10-16 09:04] LABS: BUN Creatinine Ratio 22.7 (6-22); Blood Urea Nitrogen 15 mg/dL (7-17); Carbon Dioxide 33 mmol/L (22-32); Chloride 99 mmol/L (98-107); Estimated Glomerular Filt Rate > 60.0 mL/min (>60); Glucose 175 mg/dL (80-110); HEMOLYSIS < 15 (0-50); Potassium 4.3 mmol/L (3.4-5.1); Sodium 138 mmol/L (137-145)
== END ==
PROVIDERS: PCP Nurse Practitioner Family; Visit Provider Nurse Practitioner Family
DX: D64.9 Anemia, unspecified (principal); R60.9 Edema, unspecified
CPT/HCPCS: 36415; 80048; 85025

== ENCOUNTER → 2020-10-21 12:20 | Outpatient (CLI) | payer OTHER, MEDICAID, SELFPAY ==
[2020-07-08 17:00] VITALS: BMI 39.2
== END ==
PROVIDERS: PCP Nurse Practitioner Family; Referring Provider Nurse Practitioner Family; Visit Provider Family Medicine
DX: E11.621 Type 2 diabetes mellitus with foot ulcer (principal); L97.422 Non-pressure chronic ulcer of left heel and midfoot with fat layer exposed; L97.512 Non-pressure chronic ulcer of other part of right foot with fat layer exposed; L97.412 Non-pressure chronic ulcer of right heel and midfoot with fat layer exposed; I89.0 Lymphedema, not elsewhere classified; I87.2 Venous insufficiency (chronic) (peripheral); I70.293 Other atherosclerosis of native arteries of extremities, bilateral legs; L08.9 Local infection of the skin and subcutaneous tissue, unspecified; B95.61 Methicillin susceptible Staphylococcus aureus infection as the cause of diseases classified elsewhere; B95.7 Other staphylococcus as the cause of diseases classified elsewhere; D70.9 Neutropenia, unspecified
CPT/HCPCS: 11042; 87070; 87075; 87077; 87186; 87205; 99214

== ENCOUNTER → 2020-10-28 10:52 | Outpatient (CLI) | payer OTHER, MEDICAID, SELFPAY ==
[2020-07-08 17:00] VITALS: BMI 39.2
== END ==
PROVIDERS: PCP Nurse Practitioner Family; Referring Provider Registered Nurse; Visit Provider Family Medicine
DX: E11.621 Type 2 diabetes mellitus with foot ulcer (principal); L97.412 Non-pressure chronic ulcer of right heel and midfoot with fat layer exposed; L97.512 Non-pressure chronic ulcer of other part of right foot with fat layer exposed; L97.422 Non-pressure chronic ulcer of left heel and midfoot with fat layer exposed; L97.411 Non-pressure chronic ulcer of right heel and midfoot limited to breakdown of skin; E11.51 Type 2 diabetes mellitus with diabetic peripheral angiopathy without gangrene; E11.40 Type 2 diabetes mellitus with diabetic neuropathy, unspecified; I87.2 Venous insufficiency (chronic) (peripheral); I70.293 Other atherosclerosis of native arteries of extremities, bilateral legs; L08.9 Local infection of the skin and subcutaneous tissue, unspecified; B96.4 Proteus (mirabilis) (morganii) as the cause of diseases classified elsewhere; R60.0 Localized edema
CPT/HCPCS: 11042; 87070; 87075; 87077; 87186; 87205; 97597; 99214

== ENCOUNTER → 2020-11-06 13:24 | Outpatient (CLI) | payer OTHER, MEDICAID, SELFPAY ==
[2020-07-08 17:00] VITALS: BMI 39.2
== END ==
PROVIDERS: PCP Nurse Practitioner Family; Referring Provider Nurse Practitioner Family; Visit Provider Family Medicine
DX: E11.621 Type 2 diabetes mellitus with foot ulcer (principal); L97.422 Non-pressure chronic ulcer of left heel and midfoot with fat layer exposed; L97.512 Non-pressure chronic ulcer of other part of right foot with fat layer exposed; L97.412 Non-pressure chronic ulcer of right heel and midfoot with fat layer exposed; L97.411 Non-pressure chronic ulcer of right heel and midfoot limited to breakdown of skin; I89.0 Lymphedema, not elsewhere classified; I87.2 Venous insufficiency (chronic) (peripheral); I70.293 Other atherosclerosis of native arteries of extremities, bilateral legs; L08.9 Local infection of the skin and subcutaneous tissue, unspecified; B96.5 Pseudomonas (aeruginosa) (mallei) (pseudomallei) as the cause of diseases classified elsewhere; Z79.2 Long term (current) use of antibiotics
CPT/HCPCS: 11042; 99214

== ENCOUNTER → 2020-11-21 13:46 | Outpatient (CLI) | payer OTHER, MEDICAID, SELFPAY ==
[2020-07-08 17:00] VITALS: BMI 39.2
== END ==
PROVIDERS: PCP Nurse Practitioner Family; Referring Provider Nurse Practitioner Family; Visit Provider Family Medicine
DX: E11.621 Type 2 diabetes mellitus with foot ulcer (principal); L97.512 Non-pressure chronic ulcer of other part of right foot with fat layer exposed; L97.412 Non-pressure chronic ulcer of right heel and midfoot with fat layer exposed; L97.422 Non-pressure chronic ulcer of left heel and midfoot with fat layer exposed; F17.210 Nicotine dependence, cigarettes, uncomplicated; I73.9 Peripheral vascular disease, unspecified; L08.9 Local infection of the skin and subcutaneous tissue, unspecified
CPT/HCPCS: 11042; 87070; 87075; 87205

== ENCOUNTER → 2020-12-02 11:26 | Outpatient (CLI) | payer OTHER, MEDICAID, SELFPAY ==
[2020-07-08 17:00] VITALS: BMI 39.2
== END ==
PROVIDERS: PCP Nurse Practitioner Family; Referring Provider Nurse Practitioner Family; Visit Provider Family Medicine
DX: E11.621 Type 2 diabetes mellitus with foot ulcer (principal); L97.512 Non-pressure chronic ulcer of other part of right foot with fat layer exposed; L97.412 Non-pressure chronic ulcer of right heel and midfoot with fat layer exposed; L97.422 Non-pressure chronic ulcer of left heel and midfoot with fat layer exposed; L08.9 Local infection of the skin and subcutaneous tissue, unspecified
CPT/HCPCS: 11042; 87070; 87075; 87077; 87186; 87205; 99213

== ENCOUNTER → 2020-12-04 07:33 | Outpatient (ROUT) | payer OTHER, MEDICAID, SELFPAY ==
[2020-07-08 17:00] VITALS: BMI 39.2
[2020-12-04 08:19] LABS: Add Manual Diff / Slide Review NO; Basophils Absolute Auto 100 /uL (0-100); Basophils Percent Auto 0.5 % (0-2); Eosinophils Absolute Auto 500 /uL (0-450); Eosinophils Percent Auto 2.6 % (2-4); Hematocrit 33.8 % (36-46); Hemoglobin 10.7 g/dL (12.0-16.0); Lymphocytes Absolute Auto 3100 /uL (1100-4500); Lymphocytes Percent Auto 15.6 % (25-40); Mean Corpuscular HGB Conc 31.5 % (30-36); Mean Corpuscular Hemoglobin 24.8 PG (26-34); Mean Corpuscular Volume 78.7 fL (80-100); Monocytes Absolute Auto 1500 /uL (0-900); Monocytes Percent Auto 7.6 % (3-14); Neutrophils Absolute Auto 14700 /uL (1500-7000); Neutrophils Percent Auto 73.7 % (50-75); Platelet Count 498 X10^3/uL (150-400); Red Cell Distribution Width 17.3 % (11.6-14.8); White Blood Cell Count 19.9 X10^3/uL (4.5-11.0)
[2020-12-04 08:36] LABS: Hemoglobin A1C% w Est Avg Glu 7.7 % (4.0-6.0)
[2020-12-04 08:45] LABS: HEMOLYSIS < 15 (0-50); Iron 19 ug/dL (37-170)
[2020-12-04 08:48] LABS: BUN Creatinine Ratio 24.6 (6-22); Blood Urea Nitrogen 17 mg/dL (7-17); Calcium 9.1 mg/dL (8.4-10.2); Carbon Dioxide 30 mmol/L (22-32); Chloride 102 mmol/L (98-107); Estimated Glomerular Filt Rate > 60.0 mL/min (>60); Glucose 133 mg/dL (80-110); HEMOLYSIS < 15 (0-50); Potassium 4.2 mmol/L (3.4-5.1); Sodium 138 mmol/L (137-145)
[2020-12-04 08:55] LABS: Percent Iron Saturation 6 % (15-50); Total Iron Binding Capacity 314 ug/dL (265-497); Transferrin 247 mg/dL (206-381)
== END ==
PROVIDERS: PCP Nurse Practitioner Family; Visit Provider Nurse Practitioner Family
DX: D50.9 Iron deficiency anemia, unspecified (principal); E11.9 Type 2 diabetes mellitus without complications; Z51.81 Encounter for therapeutic drug level monitoring
CPT/HCPCS: 36415; 80048; 83036; 83540; 83550; 85025

== ENCOUNTER → 2020-12-06 14:03 | Outpatient (CLI) | payer OTHER, MEDICAID, SELFPAY ==
[2020-07-08 17:00] VITALS: BMI 39.2
--- NOTE | 2020-12-06 | DI.RAD.S_ITS ---
PROCEDURE: XR HAND LT MIN 3V INDICATIONS: pain in hand and fingers TECHNIQUE: 3 views of the hand(s) acquired. COMPARISON: None. FINDINGS: Bones: No fractures or dislocations. Carpal bones are normally aligned. No suspicious bony lesions. Diffuse interphalangeal joint degeneration. 1st CMC and triscaphe joint degeneration. Soft tissues: No suspicious soft tissue calcifications. IMPRESSION: Diffuse degenerative changes as above. Dictated by: Thom Bhatia M.D. on 12/06/2020 at 16:43 Approved by: Thom Bhatia M.D. on 12/06/2020 at 16:47
== END ==
PROVIDERS: PCP Nurse Practitioner Family; Referring Provider Internal Medicine; Visit Provider Internal Medicine
DX: M79.642 Pain in left hand (principal); M18.12 Unilateral primary osteoarthritis of first carpometacarpal joint, left hand; M19.042 Primary osteoarthritis, left hand
CPT/HCPCS: 73130

== ENCOUNTER → 2020-12-16 10:21 | Outpatient (CLI) | payer OTHER, MEDICAID, SELFPAY ==
[2020-07-08 17:00] VITALS: BMI 39.2
== END ==
PROVIDERS: PCP Nurse Practitioner Family; Referring Provider Nurse Practitioner Family; Visit Provider Family Medicine
DX: E11.621 Type 2 diabetes mellitus with foot ulcer (principal); L97.422 Non-pressure chronic ulcer of left heel and midfoot with fat layer exposed; L97.512 Non-pressure chronic ulcer of other part of right foot with fat layer exposed; L97.412 Non-pressure chronic ulcer of right heel and midfoot with fat layer exposed; L08.9 Local infection of the skin and subcutaneous tissue, unspecified; I73.9 Peripheral vascular disease, unspecified
CPT/HCPCS: 11042; 87070; 87075; 87077; 87147; 87186; 87205; 99214

== ENCOUNTER → 2020-12-30 11:18 | Outpatient (CLI) | payer OTHER, MEDICAID, SELFPAY ==
[2020-07-08 17:00] VITALS: BMI 39.2
== END ==
PROVIDERS: PCP Nurse Practitioner Family; Referring Provider Nurse Practitioner Family; Visit Provider Family Medicine
DX: E11.621 Type 2 diabetes mellitus with foot ulcer (principal); L97.422 Non-pressure chronic ulcer of left heel and midfoot with fat layer exposed; L97.512 Non-pressure chronic ulcer of other part of right foot with fat layer exposed; L97.412 Non-pressure chronic ulcer of right heel and midfoot with fat layer exposed; I89.0 Lymphedema, not elsewhere classified; I87.2 Venous insufficiency (chronic) (peripheral); I70.293 Other atherosclerosis of native arteries of extremities, bilateral legs; L08.9 Local infection of the skin and subcutaneous tissue, unspecified; B95.62 Methicillin resistant Staphylococcus aureus infection as the cause of diseases classified elsewhere; B96.5 Pseudomonas (aeruginosa) (mallei) (pseudomallei) as the cause of diseases classified elsewhere
CPT/HCPCS: 11042; 99213; 99214

== ENCOUNTER → 2021-01-08 07:50 | Outpatient (ROUT) | payer OTHER, MEDICAID, SELFPAY ==
[2020-07-08 17:00] VITALS: BMI 39.2
[2021-01-08 09:13] LABS: Hematocrit 34.6 % (36-46)
== END ==
PROVIDERS: PCP Nurse Practitioner Family; Visit Provider Nurse Practitioner Family
DX: E61.1 Iron deficiency (principal); D64.9 Anemia, unspecified
CPT/HCPCS: 36415; 85014; 85018

== ENCOUNTER → 2021-01-13 11:28 | Outpatient (CLI) | payer OTHER, MEDICAID, SELFPAY ==
[2020-07-08 17:00] VITALS: BMI 39.2
== END ==
PROVIDERS: PCP Nurse Practitioner Family; Referring Provider Nurse Practitioner Family; Visit Provider Family Medicine
DX: E11.621 Type 2 diabetes mellitus with foot ulcer (principal); L97.422 Non-pressure chronic ulcer of left heel and midfoot with fat layer exposed; L97.512 Non-pressure chronic ulcer of other part of right foot with fat layer exposed; L97.412 Non-pressure chronic ulcer of right heel and midfoot with fat layer exposed; I89.0 Lymphedema, not elsewhere classified; I87.2 Venous insufficiency (chronic) (peripheral); I70.293 Other atherosclerosis of native arteries of extremities, bilateral legs
CPT/HCPCS: 11042; 87070; 87075; 87077; 87147; 87186; 87205

== ENCOUNTER → 2021-01-27 10:27 | Outpatient (CLI) | payer OTHER, MEDICAID, SELFPAY ==
[2020-07-08 17:00] VITALS: BMI 39.2
== END ==
PROVIDERS: PCP Nurse Practitioner Family; Referring Provider Nurse Practitioner Family; Visit Provider Family Medicine
DX: E11.621 Type 2 diabetes mellitus with foot ulcer (principal); L97.422 Non-pressure chronic ulcer of left heel and midfoot with fat layer exposed; L97.512 Non-pressure chronic ulcer of other part of right foot with fat layer exposed; L97.412 Non-pressure chronic ulcer of right heel and midfoot with fat layer exposed; L97.411 Non-pressure chronic ulcer of right heel and midfoot limited to breakdown of skin; I89.0 Lymphedema, not elsewhere classified; I87.2 Venous insufficiency (chronic) (peripheral); I70.293 Other atherosclerosis of native arteries of extremities, bilateral legs; L08.9 Local infection of the skin and subcutaneous tissue, unspecified
CPT/HCPCS: 11042; 11045; 87070; 87077; 87147; 87186; 87205; 99213; 99214

== ENCOUNTER 2021-01-31 12:28 | Inpatient (IN) | payer MEDICAID, SELFPAY ==
[2020-07-08 17:00] VITALS: BMI 39.2
[2021-01-31] VITALS (18 sets, daily range): BP systolic 98–200; BP diastolic 49–131; PULSE 88–101; RESP 17–20; TEMP 35.7–36.4; O2SAT 93–99; BMI 36.8
--- NOTE | 2021-01-31 13:14 | ED.NAVMDI ---
HPI - Nausea/Vomiting/Diarrhea <Amparo Raymond, [facility] - Last Filed: 01/31/21 18:12> General Chief complaint: Nausea/Vomiting/Diarrhea Stated complaint: Nausea/Vomiting Time Seen by Provider: 01/31/21 12:56 Source: patient Mode of arrival: EMS Limitations: no limitations History of Present Illness HPI Narrative: 61-year-old female with past medical history of CHF, hypertension, diabetes type 2 with peripheral neuropathy and diabetic ulcers on her, a stroke with a left-sided deficit who presents to the emergency department today by ambulance for nausea and vomiting since 01/30/2021 and it started at 1:00 a.m.. She reports she had her IV antibiotic infusion on 01/29/2021 for her ulcers on her feet, that night she felt poorly, and started vomiting at 1:00 a.m. she reports that she lives at [facility] and uses a wheelchair primarily, she reports her hips do not work well. She denies any abdominal pain or diarrhea. She reports that she is been nauseated constantly and has been unable to keep any since yesterday. She denies any dysuria, dizziness, shortness of breath, vision changes, headache fever, chest pain or other symptom. She reports she took a ODT Zofran this morning and it did not help at all. She reports she does not have a history of osteomyelitis but has had these wounds on her left and right feet for 3.5 years and has had 3 of these infusions now (she doesn't know what this medication is, but says it's an antibiotic that lasts for 10 days), she reports she has not had nausea vomiting after these infusions before. On further investigation it appears that patient has had Dalbavancin infusions by the infusion service at [facility] where she lives. Her Infectious disease doctor is Norma Hensley, records have been requested from [facility]. Related Data Home Medications Medication Instructions Recorded Confirmed acetaminophen 500 mg tablet 1 - 2 tab PO PRN PRN #0 12/28/16 07/08/20 (Tylenol Extra Strength) cyclobenzaprine 10 mg tablet 10 mg PO BID #0 12/28/16 07/08/20 furosemide 20 mg tablet 20 mg PO QDAY #0 12/28/16 07/08/20 meloxicam 15 mg tablet 15 mg PO QPM #0 12/28/16 07/08/20 atorvastatin 80 mg tablet 80 mg PO DAILY 07/08/20 07/08/20 clopidogrel 75 mg tablet 75 mg PO DAILY 07/08/20 07/08/20 insulin glargine 100 unit/mL (3 55 unit SUBCUT BID 07/08/20 07/08/20 mL) subcutaneous pen (Lantus Solostar U-100 Insulin) liraglutide 0.6 mg/0.1 mL (18 mg/3 1.8 mg SUBCUT QWEEK 07/08/20 07/08/20 mL) subcutaneous pen injector (Victoza 3-Nicho) losartan 25 mg tablet 25 mg PO DAILY 07/08/20 07/08/20 meclizine 25 mg tablet 25 mg PO TID PRN 07/08/20 07/08/20 oxybutynin chloride 5 mg tablet 5 mg PO QPM 07/08/20 07/08/20 pantoprazole 40 mg tablet,delayed 40 mg PO QAM 07/08/20 07/08/20 release zolpidem 10 mg tablet 10 mg PO QPM 07/08/20 07/08/20 Previous Rx's Medication Instructions Recorded citalopram 40 mg tablet 40 mg PO DAILY #30 tab 07/12/20 duloxetine 20 mg capsule,delayed 20 mg PO DAILY #30 cap 07/12/20 release (Cymbalta) ferrous sulfate 325 mg (65 mg 325 mg PO BIDWM #30 tab 07/12/20 iron) tablet levofloxacin 250 mg tablet 750 mg PO DAILY@1000 #2 tab 07/12/20 Allergies Allergy/AdvReac Type Severity Reaction Status Date / Time Sulfa (Sulfonamide Allergy Intermediate RASH Verified 01/31/21 12:36 Antibiotics) hydrocodone Allergy Unknown ITCH Verified 01/31/21 12:36 Review of Systems <Amparo Raymond ONLINE MARKETING MANAGER - Last Filed: 01/31/21 18:12> Review of Systems Narrative: General: denies fever, chills Head/Neck: denies headache, neck pain Eyes: denies visual changes, eye pain Cardio: denies chest pain, palpitations Respiratory: denies shortness of breath, cough GI: denies abdominal pain or diarrhea, endorses having nausea and vomiting since yesterday, not tolerating any p.o. intake : denies dysuria, hematuria MSK: denies joint pain, muscle weakness, reports having wounds on bilateral heels Skin: denies rash, itching Neuro: denies numbness, tingling Patient History <JED Lewis - Last Filed: 01/31/21 18:12> Medical History CHF (congestive heart failure) Diabetes Hyperlipidemia Hypertension Peripheral neuropathy PVD (peripheral vascular disease) TIA (transient ischemic attack) Surgical History H/O angioplasty Social History household members: caregiver Smoking Status: Current every day smoker Smoking Status: Current every day smoker alcohol intake frequency: 0-2 drinks per day Substance Use Type: does not use Exam <JED Lewis - Last Filed: 01/31/21 18:12> Narrative Exam Narrative: Independently reviewed vitals signs and nursing notes. General: Awake, alert, nontoxic, no cardiorespiratory distress, patient is speaking slowly and overall appears unwell, afebrile Head/Neck: Atraumatic, neck full range of motion Eyes: EOMI, conjunctiva normal Nose: nares patent, no rhinorrhea Mouth/Throat: moist mucus membranes, posterior pharynx normal, no oral lesions Cardio: Regular rate and rhythm, no peripheral edema Respiratory: respirations unlabored without wheezing, stridor, or rales. No retractions. GI: Abdomen soft, nontender to palpation x4 quadrants, obese MSK: Moves all extremities, neurovascularly intact Dressings taken down on bilateral feet and both heels have large open wounds, the right is larger than the left, erythematous and raised without any exudate or drainage. Drainage was most likely absorbed by the dressing that she came in with, cultures were taken from both feet although there might not be much exudate if any on them. She has surrounding edema to both of these wounds, the right heel wound is approximately 3 cm x 2 cm, the left is approximately 2 cm x 2 cm, there is no tracking up her leg, there is no bone showing, there is no black tissue Skin: Normal capillary refill, no rash Neuro: Clear speech and cognition, moves all extremities with left-sided weakness, Initial Vital Signs Initial Vital Signs: Vital Signs Temperature 97.6 F 01/31/21 12:30 Pulse Rate 99 H 01/31/21 12:30 Respiratory Rate 17 01/31/21 12:30 Blood Pressure 173/131 H 01/31/21 12:30 Pulse Oximetry 95 01/31/21 12:30 <Zev Cody MD - Last Filed: 01/31/21 18:51> Initial Vital Signs Initial Vital Signs: Vital Signs Temperature 97.6 F 01/31/21 12:30 Pulse Rate 99 H 01/31/21 12:30 Respiratory Rate 17 01/31/21 12:30 Blood Pressure 173/131 H 01/31/21 12:30 Pulse Oximetry 95 01/31/21 12:30 Course <JED Lewis - Last Filed: 01/31/21 18:12> Orders Ordered: ED Orders 01/31/21 13:38 C-Reactive Protein Quant Stat Complete Blood Count AUTO DIFF Stat Comprehensive Metabolic Panel Stat Lactate (Lactic Acid) Stat NT-proBNP (BNP-Adult 18+) Stat 01/31/21 14:57 Consult to Wound Care Stat XR foot LT min 3V Stat XR foot RT min 3V Stat 01/31/21 15:15 Wound Culture and Gram Stain Stat Wound Culture and Gram Stain Stat 01/31/21 15:38 Blood Culture Stat 01/31/21 15:55 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) Stat 01/31/21 15:57 XR chest 1V Stat Discontinued Medications Al Hydrox/Mg Hydrox/Simethicone 20 ml/ Lidocaine HCl 15 ml 0 ml PO NOW ONE Stop: 01/31/21 15:29 Last Admin: 01/31/21 15:47 Dose: 30 ml Documented by: JULIEN Sodium Chloride (Normal Saline 0.9%) 1,000 mls @ 500 mls/hr IV BOLUS ONE Stop: 01/31/21 15:11 Last Infusion: 01/31/21 14:39 Dose: 0 mls/hr Documented by: Admin: 01/31/21 13:43 Dose: 500 mls/hr Documented by: JULIEN Piperacillin Sod/Tazobactam (Sod 4.5 gm/ Sodium Chloride) 100 mls @ 200 mls/hr IV NOW ONE Stop: 01/31/21 15:03 Last Infusion: 01/31/21 16:26 Dose: 0 mls/hr Documented by: Admin: 01/31/21 15:48 Dose: 200 mls/hr Documented by: JULIEN Vancomycin HCl/Dextrose (Vancomycin) 2,000 mg in 400 mls @ 200 mls/hr IV NOW ONE Stop: 01/31/21 17:29 Last Infusion: 01/31/21 17:43 Dose: 0 mls/hr Documented by: Admin: 01/31/21 15:48 Dose: 200 mls/hr Documented by: JULIEN Cefepime HCl 2 gm/ Sodium (Chloride) 100 mls @ 200 mls/hr IV NOW ONE Stop: 01/31/21 15:52 Ondansetron HCl (Ondansetron 4 Mg/2 Ml Inj) 4 mg IV NOW ONE Stop: 01/31/21 13:13 Last Admin: 01/31/21 13:42 Dose: 4 mg Documented by: JULIEN Vancomycin HCl (Vancomycin Per Pharmacy) 1 request MISC NOW ONE Stop: 01/31/21 15:03 Last Admin: 01/31/21 15:49 Dose: Not Given Documented by: JULIEN Consultations Consultation #1: W/Hospitalist Dr. Hackett for admission, he agrees to come and see patient in the ED. Consultation #2: Dr. Hackett notified that pt is not tolerating any PO intake at this time, he accepts patient for admission Vital Signs Vital signs: Vital Signs - 8 hr 01/31/21 12:30 01/31/21 13:00 01/31/21 13:46 Temperature 97.6 F Pulse Rate 99 H 95 H 91 H Respiratory Rate 17 18 18 Blood Pressure 173/131 H 180/118 H 140/63 Pulse Oximetry 95 94 95 01/31/21 14:30 01/31/21 15:00 01/31/21 15:30 Temperature Pulse Rate 97 H 95 H 95 H Respiratory Rate 18 18 18 Blood Pressure 200/80 H 180/78 H 191/82 H Pulse Oximetry 98 97 99 01/31/21 15:33 01/31/21 15:53 01/31/21 16:00 Temperature Pulse Rate 99 H 101 H 99 H Respiratory Rate 18 18 Blood Pressure 144/72 H 165/77 H Pulse Oximetry 94 94 93 01/31/21 16:30 01/31/21 17:00 01/31/21 17:01 Temperature Pulse Rate 90 95 H 101 H Respiratory Rate 18 17 Blood Pressure 174/73 H 115/53 L Pulse Oximetry 94 95 93 <Zev Cody MD - Last Filed: 01/31/21 18:51> Orders Ordered: ED Orders 01/31/21 13:38 C-Reactive Protein Quant Stat Complete Blood Count AUTO DIFF Stat Comprehensive Metabolic Panel Stat Lactate (Lactic Acid) Stat NT-proBNP (BNP-Adult 18+) Stat 01/31/21 14:57 Consult to Wound Care Stat XR foot LT min 3V Stat XR foot RT min 3V Stat 01/31/21 15:15 Wound Culture and Gram Stain Stat Wound Culture and Gram Stain Stat 01/31/21 15:38 Blood Culture Stat 01/31/21 15:55 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) Stat 01/31/21 15:57 XR chest 1V Stat Discontinued Medications Al Hydrox/Mg Hydrox/Simethicone 20 ml/ Lidocaine HCl 15 ml 0 ml PO NOW ONE Stop: 01/31/21 15:29 Last Admin: 01/31/21 15:47 Dose: 30 ml Documented by: JULIEN Sodium Chloride (Normal Saline 0.9%) 1,000 mls @ 500 mls/hr IV BOLUS ONE Stop: 01/31/21 15:11 Last Infusion: 01/31/21 14:39 Dose: 0 mls/hr Documented by: Admin: 01/31/21 13:43 Dose: 500 mls/hr Documented by: JULIEN Piperacillin Sod/Tazobactam (Sod 4.5 gm/ Sodium Chloride) 100 mls @ 200 mls/hr IV NOW ONE Stop: 01/31/21 15:03 Last Infusion: 01/31/21 16:26 Dose: 0 mls/hr Documented by: Admin: 01/31/21 15:48 Dose: 200 mls/hr Documented by: JULIEN Vancomycin HCl/Dextrose (Vancomycin) 2,000 mg in 400 mls @ 200 mls/hr IV NOW ONE Stop: 01/31/21 17:29 Last Infusion: 01/31/21 17:43 Dose: 0 mls/hr Documented by: Admin: 01/31/21 15:48 Dose: 200 mls/hr Documented by: JULIEN Cefepime HCl 2 gm/ Sodium (Chloride) 100 mls @ 200 mls/hr IV NOW ONE Stop: 01/31/21 15:52 Ondansetron HCl (Ondansetron 4 Mg/2 Ml Inj) 4 mg IV NOW ONE Stop: 01/31/21 13:13 Last Admin: 01/31/21 13:42 Dose: 4 mg Documented by: JULIEN Vancomycin HCl (Vancomycin Per Pharmacy) 1 request MISC NOW ONE Stop: 01/31/21 15:03 Last Admin: 01/31/21 15:49 Dose: Not Given Documented by: JULIEN Vital Signs Vital signs: Vital Signs - 8 hr 01/31/21 12:30 01/31/21 13:00 01/31/21 13:46 Temperature 97.6 F Pulse Rate 99 H 95 H 91 H Respiratory Rate 17 18 18 Blood Pressure 173/131 H 180/118 H 140/63 Pulse Oximetry 95 94 95 01/31/21 14:30 01/31/21 15:00 01/31/21 15:30 Temperature Pulse Rate 97 H 95 H 95 H Respiratory Rate 18 18 18 Blood Pressure 200/80 H 180/78 H 191/82 H Pulse Oximetry 98 97 99 01/31/21 15:33 01/31/21 15:53 01/31/21 16:00 Temperature Pulse Rate 99 H 101 H 99 H Respiratory Rate 18 18 Blood Pressure 144/72 H 165/77 H Pulse Oximetry 94 94 93 01/31/21 16:30 01/31/21 17:00 01/31/21 17:01 Temperature Pulse Rate 90 95 H 101 H Respiratory Rate 18 17 Blood Pressure 174/73 H 115/53 L Pulse Oximetry 94 95 93 MDM - Nausea/Vomiting/Diarrhea <JED Lewis - Last Filed: 01/31/21 18:12> Lab Data Result diagrams: 01/31/21 13:38 01/31/21 13:38 Labs: Lab Results 01/31/21 01/31/21 01/31/21 Range/Units 13:38 13:38 13:38 WBC 23.3 H (4.5-11.0) X10^3/uL RBC 4.59 (4.0-5.2) X10^6/uL Hgb 12.2 (12.0-16.0) g/dL Hct 37.0 (36-46) % MCV 80.5 (80-100) fL MCH 26.6 (26-34) PG MCHC 33.0 (30-36) % RDW 17.3 H (11.6-14.8) % Plt Count 585 H (150-400) X10^3/uL Neut % (Auto) 82.7 H (50-75) % Lymph % (Auto) 10.8 L (25-40) % [place] % (Auto) 5.5 (3-14) % Eos % (Auto) 0.2 L (2-4) % Baso % (Auto) 0.8 (0-2) % Neut # (Auto) 32515 H (7204-5068) /uL Lymph # (Auto) 2500 (2898-1862) /uL [place] # (Auto) 1300 H (0-900) /uL Eos # (Auto) 0 (0-450) /uL Baso # (Auto) 200 H (0-100) /uL Sodium 138 (137-145) mmol/L Potassium 4.1 (3.4-5.1) mmol/L Chloride 93 L (98-107) mmol/L Carbon Dioxide 37 H (22-32) mmol/L BUN 16 (7-17) mg/dL Creatinine 0.62 (0.52-1.04) mg/dL Estimated GFR > 60.0 (>60) mL/min BUN/Creatinine Ratio 25.8 H (6-22) Glucose 82 (80-110) mg/dL Lactate 1.1 (0.7-2.1) mmol/L Calcium 10.2 (8.4-10.2) mg/dL Total Bilirubin 0.4 (0.2-1.3) mg/dL AST 25 (14-36) IU/L ALT 16 (<35) IU/L Alkaline Phosphatase 152 H (38-126) U/L C-Reactive Protein (<1.0) mg/dL NT-Pro-B Natriuret Pep (<125) pg/mL Total Protein 8.6 H (6.3-8.2) g/dL Albumin 4.4 (3.5-5.0) g/dL Globulin 4.2 H (1.7-4.1) g/dL Albumin/Globulin Ratio 1.0 (1.0-2.8) SARS-CoV-2 (PCR) (Negative) 01/31/21 01/31/21 01/31/21 Range/Units 13:38 13:38 15:55 WBC (4.5-11.0) X10^3/uL RBC (4.0-5.2) X10^6/uL Hgb (12.0-16.0) g/dL Hct (36-46) % MCV (80-100) fL MCH (26-34) PG MCHC (30-36) % RDW (11.6-14.8) % Plt Count (150-400) X10^3/uL Neut % (Auto) (50-75) % Lymph % (Auto) (25-40) % [place] % (Auto) (3-14) % Eos % (Auto) (2-4) % Baso % (Auto) (0-2) % Neut # (Auto) (3437-3482) /uL Lymph # (Auto) (5093-6781) /uL [place] # (Auto) (0-900) /uL Eos # (Auto) (0-450) /uL Baso # (Auto) (0-100) /uL Sodium (137-145) mmol/L Potassium (3.4-5.1) mmol/L Chloride (98-107) mmol/L Carbon Dioxide (22-32) mmol/L BUN (7-17) mg/dL Creatinine (0.52-1.04) mg/dL Estimated GFR (>60) mL/min BUN/Creatinine Ratio (6-22) Glucose (80-110) mg/dL Lactate (0.7-2.1) mmol/L Calcium (8.4-10.2) mg/dL Total Bilirubin (0.2-1.3) mg/dL AST (14-36) IU/L ALT (<35) IU/L Alkaline Phosphatase (38-126) U/L C-Reactive Protein 2.3 H (<1.0) mg/dL NT-Pro-B Natriuret Pep 218 H (<125) pg/mL Total Protein (6.3-8.2) g/dL Albumin (3.5-5.0) g/dL Globulin (1.7-4.1) g/dL Albumin/Globulin Ratio (1.0-2.8) SARS-CoV-2 (PCR) Negative (Negative) Imaging Data Extremity x-ray #1: Radiologist's Impression: PROCEDURE:? XR FOOT RT MIN 3V ? INDICATIONS:? foot wound, c/f osteo ? TECHNIQUE:? 3 views of the foot were acquired.? ? COMPARISON:? [facility], XR FOOT RT MIN 3V, 05/01/2019, 11:12. ? FINDINGS:? ? Bones:? No fractures or dislocations.? No suspicious bony lesions.? No osseous erosive changes.? No periosteal reaction.? Calcaneal bone spurs.? ? Soft tissues:? No tibiotalar joint effusion.? Achilles tendon appears normal.? ? ? IMPRESSION:? No tierney evidence of osteomyelitis. Plain film radiographs can be insensitive to osteomyelitis during the initial 15 days of the disease process. If there is clinical concern for osteomyelitis, then three-phase nuclear medicine bone scan or MRI should be considered for further evaluation. ? ? Dictated by: Gema Sotelo MD, PhD on 01/31/2021 at 15:36 ? ? Approved by: Gema Sotelo MD, PhD on 01/31/2021 at 15:37 ? Chest x-ray: Radiologist's Impression: PROCEDURE:? XR CHEST 1V ? INDICATIONS:? hx CHF ? TECHNIQUE:? One view of the chest was acquired.? ? COMPARISON:? [facility], XR CHEST 1V, 07/09/2020, 6:50. ? FINDINGS:? ? Surgical changes and devices:? None.? ? Lungs and pleura:? Right basilar atelectasis and or infiltrate associated with elevated right hemidiaphragm. ? Mediastinum:? Heart size enlarged.? No vascular congestion present. ? Bones and chest wall:? No suspicious bony lesions.? Overlying soft tissues appear unremarkable.? ? IMPRESSION:? ? Right basilar atelectasis and infiltrate associated with right elevated hemidiaphragm ? Cardiomegaly without vascular congestion ? ? Approved by: Shiva Padgett M.D. on 01/31/2021 at 15:46? Extremity x-ray #2: Radiologist's Impression: PROCEDURE:? XR FOOT LT MIN 3V ? INDICATIONS:? foot wound c/f osteo ? TECHNIQUE:? 3 views of the foot were acquired.? ? COMPARISON:? [facility], , FOOT 3V LEFT, 09/11/2014, 11:18. ? FINDINGS:? ? Bones:? No fractures or dislocations.? No suspicious bony lesions.? No osseous erosive change.? No periosteal reaction.? ? Soft tissues:? No tibiotalar joint effusion.? Achilles tendon appears normal.? No soft tissue gas.? ? ? IMPRESSION:? No tierney evidence of osteomyelitis. Plain film radiographs can be insensitive to osteomyelitis during the initial 15 days of the disease process. If there is clinical concern for osteomyelitis, then three-phase nuclear medicine bone scan or MRI should be considered for further evaluation. ? ? Dictated by: Gema Sotelo MD, PhD on 01/31/2021 at 15:38 ? ? Approved by: Gema Sotelo MD, PhD on 01/31/2021 at 15:39 ? MDM Narrative Medical decision making narrative: This is a 61-year-old female with multiple medical problems including CHF, MRSA, hypertension, diabetes with neuropathy and foot ulcers, stroke, and hyperlipidemia who presents emergency department today with chief complaint of nausea and vomiting. She reports she has been nauseated since her dalbavancin infusion that she had on 01/29/2021 for her wounds on her foot. She lives at the [facility], does not ambulate and is wheelchair-bound, she has been receiving her wound care at the [facility]. Dr. Norma Hensley is her infectious disease physician at [facility] and records have been requested. Patient has chronic leukocytosis with a base line white count 20, today she is 23.3 other pertinent findings on her lab work include an elevation in her neutrophils up to 19,300, no electrolyte abnormalities, alk-phos elevated 152 from her last value of 120 through in July of this year, wound cultures were sent from bilateral calcaneal wounds, blood cultures are pending, patient was initially tachycardic, with labored respirations, but this has resolved, and was most likely related to exertion while she was talking. She was given Zofran while here in the emergency department and has not had much improvement of her nausea. She was given cefepime and vancomycin while here in the emergency department. X-rays of her bilateral feet do not show tierney evidence of osteomyelitis, I think she needs a MRI and admission to the hospital for IV antibiotics and IV fluids she is not tolerating any p.o. at this time. Her chest x-ray shows right basilar atelectasis and infiltrate associated with a right elevated hemidiaphragm, her BNP today is 218 her CRP is 2.3. I suspect she has a mild pneumonia in her right lower lobe. My differential includes osteomyelitis, pneumonia, CHF exacerbation, and COPD. <Zev Cody MD - Last Filed: 01/31/21 18:51> Lab Data Labs: Lab Results 01/31/21 01/31/21 01/31/21 Range/Units 13:38 13:38 13:38 WBC 23.3 H (4.5-11.0) X10^3/uL RBC 4.59 (4.0-5.2) X10^6/uL Hgb 12.2 (12.0-16.0) g/dL Hct 37.0 (36-46) % MCV 80.5 (80-100) fL MCH 26.6 (26-34) PG MCHC 33.0 (30-36) % RDW 17.3 H (11.6-14.8) % Plt Count 585 H (150-400) X10^3/uL Neut % (Auto) 82.7 H (50-75) % Lymph % (Auto) 10.8 L (25-40) % [place] % (Auto) 5.5 (3-14) % Eos % (Auto) 0.2 L (2-4) % Baso % (Auto) 0.8 (0-2) % Neut # (Auto) 33654 H (6424-2256) /uL Lymph # (Auto) 2500 (0962-2307) /uL [place] # (Auto) 1300 H (0-900) /uL Eos # (Auto) 0 (0-450) /uL Baso # (Auto) 200 H (0-100) /uL Sodium 138 (137-145) mmol/L Potassium 4.1 (3.4-5.1) mmol/L Chloride 93 L (98-107) mmol/L Carbon Dioxide 37 H (22-32) mmol/L BUN 16 (7-17) mg/dL Creatinine 0.62 (0.52-1.04) mg/dL Estimated GFR > 60.0 (>60) mL/min BUN/Creatinine Ratio 25.8 H (6-22) Glucose 82 (80-110) mg/dL Lactate 1.1 (0.7-2.1) mmol/L Calcium 10.2 (8.4-10.2) mg/dL Total Bilirubin 0.4 (0.2-1.3) mg/dL AST 25 (14-36) IU/L ALT 16 (<35) IU/L Alkaline Phosphatase 152 H (38-126) U/L C-Reactive Protein (<1.0) mg/dL NT-Pro-B Natriuret Pep (<125) pg/mL Total Protein 8.6 H (6.3-8.2) g/dL Albumin 4.4 (3.5-5.0) g/dL Globulin 4.2 H (1.7-4.1) g/dL Albumin/Globulin Ratio 1.0 (1.0-2.8) SARS-CoV-2 (PCR) (Negative) 01/31/21 01/31/21 01/31/21 Range/Units 13:38 13:38 15:55 WBC (4.5-11.0) X10^3/uL RBC (4.0-5.2) X10^6/uL Hgb (12.0-16.0) g/dL Hct (36-46) % MCV (80-100) fL MCH (26-34) PG MCHC (30-36) % RDW (11.6-14.8) % Plt Count (150-400) X10^3/uL Neut % (Auto) (50-75) % Lymph % (Auto) (25-40) % [place] % (Auto) (3-14) % Eos % (Auto) (2-4) % Baso % (Auto) (0-2) % Neut # (Auto) (3487-7301) /uL Lymph # (Auto) (5629-8899) /uL [place] # (Auto) (0-900) /uL Eos # (Auto) (0-450) /uL Baso # (Auto) (0-100) /uL Sodium (137-145) mmol/L Potassium (3.4-5.1) mmol/L Chloride (98-107) mmol/L Carbon Dioxide (22-32) mmol/L BUN (7-17) mg/dL Creatinine (0.52-1.04) mg/dL Estimated GFR (>60) mL/min BUN/Creatinine Ratio (6-22) Glucose (80-110) mg/dL Lactate (0.7-2.1) mmol/L Calcium (8.4-10.2) mg/dL Total Bilirubin (0.2-1.3) mg/dL AST (14-36) IU/L ALT (<35) IU/L Alkaline Phosphatase (38-126) U/L C-Reactive Protein 2.3 H (<1.0) mg/dL NT-Pro-B Natriuret Pep 218 H (<125) pg/mL Total Protein (6.3-8.2) g/dL Albumin (3.5-5.0) g/dL Globulin (1.7-4.1) g/dL Albumin/Globulin Ratio (1.0-2.8) SARS-CoV-2 (PCR) Negative (Negative) Discharge Plan Departure Patient Disposition: Admitted as Observation Clinical Impression: Diabetic foot ulcers Qualifiers: Diabetic foot ulcer location: heel Diabetes mellitus type: type 2 Laterality: unspecified laterality Non-pressure ulcer stage: with fat layer exposed Qualified Code(s): E11.621 - Type 2 diabetes mellitus with foot ulcer Pneumonia Qualifiers: Pneumonia type: due to unspecified organism Laterality: right Lung location: lower lobe of lung Qualified Code(s): J18.9 - Pneumonia, unspecified organism Nausea & vomiting Qualifiers: Vomiting Intractability: non-intractable Admit Date/Time: 01/31/21 17:27 Admit Provider: Rafael Mccoy
[2021-01-31] MEDS: ONDANSETRON 4 MG/2 ML INJ IV (13:42)
[2021-01-31] MEDS: SODIUM CHLORIDE 0.9% 1,000 ML 500 ML IV (13:43)
[2021-01-31 13:44] LABS: Add Manual Diff / Slide Review NO; Basophils Absolute Auto 200 /uL (0-100); Basophils Percent Auto 0.8 % (0-2); Eosinophils Absolute Auto 0 /uL (0-450); Eosinophils Percent Auto 0.2 % (2-4); Hemoglobin 12.2 g/dL (12.0-16.0); Lymphocytes Absolute Auto 2500 /uL (1100-4500); Lymphocytes Percent Auto 10.8 % (25-40); Mean Corpuscular Hemoglobin 26.6 PG (26-34); Mean Corpuscular Volume 80.5 fL (80-100); Monocytes Absolute Auto 1300 /uL (0-900); Monocytes Percent Auto 5.5 % (3-14); Neutrophils Absolute Auto 19300 /uL (1500-7000); Neutrophils Percent Auto 82.7 % (50-75); Platelet Count 585 X10^3/uL (150-400); Red Blood Cell Count 4.59 X10^6/uL (4.0-5.2); Red Cell Distribution Width 17.3 % (11.6-14.8); White Blood Cell Count 23.3 X10^3/uL (4.5-11.0)
[2021-01-31 13:55] LABS: Alanine Aminotransferase 16 IU/L (<35); Albumin 4.4 g/dL (3.5-5.0); Alkaline Phosphatase 152 U/L (38-126); Aspartate Aminotransferase 25 IU/L (14-36); BUN Creatinine Ratio 25.8 (6-22); Bilirubin Total 0.4 mg/dL (0.2-1.3); Blood Urea Nitrogen 16 mg/dL (7-17); Calcium 10.2 mg/dL (8.4-10.2); Carbon Dioxide 37 mmol/L (22-32); Chloride 93 mmol/L (98-107); Estimated Glomerular Filt Rate > 60.0 mL/min (>60); Globulin 4.2 g/dL (1.7-4.1); Glucose 82 mg/dL (80-110); HEMOLYSIS < 15 (0-50); Potassium 4.1 mmol/L (3.4-5.1); Sodium 138 mmol/L (137-145); Total Protein 8.6 g/dL (6.3-8.2)
--- NOTE | 2021-01-31 14:57 | DI.RAD.S_ITS ---
PROCEDURE: XR FOOT RT MIN 3V INDICATIONS: foot wound, c/f osteo TECHNIQUE: 3 views of the foot were acquired. COMPARISON: [facility], CR, XR FOOT RT MIN 3V, 05/01/2019, 11:12. FINDINGS: Bones: No fractures or dislocations. No suspicious bony lesions. No osseous erosive changes. No periosteal reaction. Calcaneal bone spurs. Soft tissues: No tibiotalar joint effusion. Achilles tendon appears normal. IMPRESSION: No tierney evidence of osteomyelitis. Plain film radiographs can be insensitive to osteomyelitis during the initial 15 days of the disease process. If there is clinical concern for osteomyelitis, then three-phase nuclear medicine bone scan or MRI should be considered for further evaluation. Dictated by: Gema Sotelo MD, PhD on 01/31/2021 at 15:36 Approved by: Gema Sotelo MD, PhD on 01/31/2021 at 15:37
--- NOTE | 2021-01-31 14:57 | DI.RAD.S_ITS ---
PROCEDURE: XR FOOT LT MIN 3V INDICATIONS: foot wound c/f osteo TECHNIQUE: 3 views of the foot were acquired. COMPARISON: [facility], , FOOT 3V LEFT, 09/11/2014, 11:18. FINDINGS: Bones: No fractures or dislocations. No suspicious bony lesions. No osseous erosive change. No periosteal reaction. Soft tissues: No tibiotalar joint effusion. Achilles tendon appears normal. No soft tissue gas. IMPRESSION: No tierney evidence of osteomyelitis. Plain film radiographs can be insensitive to osteomyelitis during the initial 15 days of the disease process. If there is clinical concern for osteomyelitis, then three-phase nuclear medicine bone scan or MRI should be considered for further evaluation. Dictated by: Gema Sotelo MD, PhD on 01/31/2021 at 15:38 Approved by: Gema Sotelo MD, PhD on 01/31/2021 at 15:39
[2021-01-31 15:18] LABS: Lactate (Lactic Acid) 1.1 mmol/L (0.7-2.1)
[2021-01-31 15:21] LABS: C-Reactive Protein Quant 2.3 mg/dL (<1.0)
[2021-01-31] MEDS: MAG HYDROX/ALUMINUM/SIMETH SUS 20 ML, LIDOCAINE VISCOUS 2% 15 ML PO (15:47)
[2021-01-31] MEDS: VANCOMYCIN 2,000 MG/400 ML PIGGYBACK 200 MG IV (15:48)
[2021-01-31] MEDS: PIPERACILLIN/TAZO 4.5 GM in SODIUM CHLORIDE 0.9% 100 ML 200 ML IV (15:48)
--- NOTE | 2021-01-31 15:57 | DI.RAD.S_ITS ---
PROCEDURE: XR CHEST 1V INDICATIONS: hx CHF TECHNIQUE: One view of the chest was acquired. COMPARISON: [facility], CR, XR CHEST 1V, 07/09/2020, 6:50. FINDINGS: Surgical changes and devices: None. Lungs and pleura: Right basilar atelectasis and or infiltrate associated with elevated right hemidiaphragm. Mediastinum: Heart size enlarged. No vascular congestion present. Bones and chest wall: No suspicious bony lesions. Overlying soft tissues appear unremarkable. IMPRESSION: Right basilar atelectasis and infiltrate associated with right elevated hemidiaphragm Cardiomegaly without vascular congestion Approved by: Shiva Padgett M.D. on 01/31/2021 at 15:46
[2021-01-31 16:24] LABS: NT-proBNP (BNP-Adult 18+) 218 pg/mL (<125)
--- NOTE | 2021-01-31 17:06 | P.EN_ITS ---
Event Note Date Patient Seen: 01/31/21 Time Patient Seen: 17:06 Event Note: Please note full H&P or consult note will follow, pending PO trial. ?Ariana Causey is a 60-year-old female with past medical history of morbid obesity, type 2 diabetes with chronic foot wounds followed by wound care, peripheral vascular disease, prior CVA, probable COPD, and active smoker who presented to the emergency room. She was recently put on ?daptomycin instead of vancomycin on Wednesday. Patient follows with ID clinic. She presented with 2 days of nausea and vomiting. Denies hematechezia. She denies fever, chills or diarrhea. She has chronic constipation, last BM on wednesday which appeared normal for her. She denies diarrhea. Lives at [facility]. Medicine asked to see over concern for possible infectious source of her symptoms. Patient states her foot wounds and heel wounds are chronic, somewhat improving per her report. She denies chest pain, shortness of breath, or cough. Labs notable for a metabolic alkalosis, which appears to be chronic for her. Patient very much wishes to return to her assisted living facility. She feels improved currently. Symptoms may be due to recent antibiotic change, but if improving this can be followed up with her infectious disease (at [facility]) next week if the patient can tolerate a diet. Recommend PO trial, if unable to tolerate oral intake admit for observation. Otherwise if tolerating PO intake would recommend symptomatic treatment with anti-nausea medications, and follow up with her infectious disease provider as soon as possible before next infusion. If able obtain records from [facility] for current ID treatments and further information. Patient reports no current bone infection after extensive workup at [facility].
[2021-01-31 17:22] LABS: COVID19 - ADMIT (NP swab/PCR) Negative (Negative)
--- NOTE | 2021-01-31 17:25 | PC.NURSE ---
po challenge nauseated after 1 bite of yogurt
[2021-01-31] MEDS: CEFEPIME 2 GM in SODIUM CHLORIDE 0.9% 100 ML 200 ML IV (18:42)
--- NOTE | 2021-01-31 18:57 | PM.HP.1 ---
History of Present Illness History of Present Illness Date Patient Seen: 01/31/21 Time Patient Seen: 17:06 Chief complaint: Nausea/Vomiting Narrative: Ariana Causey is a 60-year-old female with past medical history of morbid obesity, type 2 diabetes with chronic foot wounds followed by wound care, peripheral vascular disease, prior CVA, probable COPD, and active smoker who presented to the emergency room. She was recently put on ?dalbavancin infusion instead of vancomycin on Wednesday. Patient follows with ID clinic. She presented with 2 days of nausea and vomiting. Denies hematechezia. She denies fever, chills or diarrhea. She has chronic constipation, last BM on wednesday which appeared normal for her. She denies diarrhea. Lives at [facility]. Medicine asked to see over concern for possible infectious source of her symptoms. Patient states her foot wounds and heel wounds are chronic, somewhat improving per her report. She denies chest pain, shortness of breath, or cough. Labs notable for a metabolic alkalosis, which appears to be chronic for her but slightly worsened. Has a mild leukocytosis at 23, but usually she is around 20 per prior labs. No other significant lab abnormalities. She had a PO trial in the ER, which she did not tolerate, was admitted for light hydration and continued monitoring. Denies family history of malignancy or rheumatological disease in her mother and father. Patient History Medical History CHF (congestive heart failure) Diabetes Hyperlipidemia Hypertension Peripheral neuropathy PVD (peripheral vascular disease) TIA (transient ischemic attack) Surgical History (Updated 01/31/21 @ 19:49 by Rafael Mccoy DO) H/O angioplasty History of cholecystectomy Family & Social History Social History: household members caregiver Safety & Behavioral: Feels Safe in Current Yes Environment Been Physically Hurt or No Threatened By a Person Tobacco & Substance use: Smoking Status Current every day smoker alcohol intake frequency 0-2 drinks per day Substance Use Type does not use Meds Home Medications and Allergies Home Medications Medication Instructions Recorded Confirmed Type acetaminophen 500 mg tablet 1 - 2 tab PO PRN PRN #0 12/28/16 01/31/21 History (Tylenol Extra Strength) cyclobenzaprine 10 mg tablet 10 mg PO BID #0 12/28/16 01/31/21 History furosemide 20 mg tablet 20 mg PO QDAY #0 12/28/16 01/31/21 History atorvastatin 80 mg tablet 80 mg PO DAILY 07/08/20 01/31/21 History clopidogrel 75 mg tablet 75 mg PO DAILY 07/08/20 01/31/21 History insulin glargine 100 unit/mL (3 55 unit SUBCUT BID 07/08/20 01/31/21 History mL) subcutaneous pen (Lantus Solostar U-100 Insulin) liraglutide 0.6 mg/0.1 mL (18 mg/3 1.8 mg SUBCUT QWEEK 07/08/20 01/31/21 History mL) subcutaneous pen injector (Victoza 3-Nicho) losartan 25 mg tablet 25 mg PO DAILY 07/08/20 01/31/21 History pantoprazole 40 mg tablet,delayed 40 mg PO QAM 07/08/20 01/31/21 History release zolpidem 10 mg tablet 10 mg PO QPM 07/08/20 01/31/21 History citalopram 40 mg tablet 40 mg PO DAILY #30 tab 07/12/20 01/31/21 Rx duloxetine 20 mg capsule,delayed 20 mg PO DAILY #30 cap 07/12/20 01/31/21 Rx release (Cymbalta) Allergies Allergy/AdvReac Type Severity Reaction Status Date / Time Sulfa (Sulfonamide Allergy Intermediate RASH Verified 01/31/21 12:36 Antibiotics) hydrocodone Allergy Unknown ITCH Verified 01/31/21 12:36 Review of Systems Review of Systems Narrative: All other systems reviewed with the patient and are negative unless otherwise stated. Exam Vital Signs (past 8 hours): - 01/31/21 12:30 01/31/21 13:00 01/31/21 13:46 Temperature 97.6 F Pulse Rate 99 H 95 H 91 H Respiratory Rate 17 18 18 Blood Pressure 173/131 H 180/118 H 140/63 Pulse Oximetry 95 94 95 01/31/21 14:30 01/31/21 15:00 01/31/21 15:30 Temperature Pulse Rate 97 H 95 H 95 H Respiratory Rate 18 18 18 Blood Pressure 200/80 H 180/78 H 191/82 H Pulse Oximetry 98 97 99 01/31/21 15:33 01/31/21 15:53 01/31/21 16:00 Temperature Pulse Rate 99 H 101 H 99 H Respiratory Rate 18 18 Blood Pressure 144/72 H 165/77 H Pulse Oximetry 94 94 93 01/31/21 16:30 01/31/21 17:00 01/31/21 17:01 Temperature Pulse Rate 90 95 H 101 H Respiratory Rate 18 17 Blood Pressure 174/73 H 115/53 L Pulse Oximetry 94 95 93 01/31/21 17:30 01/31/21 18:00 Temperature Pulse Rate 99 H 97 H Respiratory Rate 18 Blood Pressure 165/74 H 162/71 H Pulse Oximetry 95 95 Oxygen Delivery Method Room Air Narrative Exam Narrative: GENERAL APPEARANCE: Well developed, no acute distress. SKIN: Inspection of the skin reveals no petechiae. Ulcerations noted below. HEENT:? Normocephalic atraumatic, extraocular muscles are intact, oropharynx is clear and mucous membranes are dry, neck is supple without adenopathy NECK: Supple and symmetric. CHEST: Normal AP diameter, no tenderness LUNGS: Auscultation of the lungs revealed diminished breath sounds bilaterally CARDIOVASCULAR: regular rate and rhythm, no murmurs ABDOMEN: Soft, nontender, and nondistended. Obese abdomen. MUSCULOSKELETAL: muscle strength equal bilaterally, weak chronically. No joint effusions. EXTREMITIES: No cyanosis, clubbing.? There is trace lower extremity edema and some chronic venous stasis changes.? Chronic appearing bilateral diabetic foot ulcers with no surrounding induration, or tenderness. Dressings intact. There is very mild erythema of her R heel, but patient reports this is improved. NEUROLOGIC: Alert and oriented x 3. Normal affect. Objective Labs Result Diagrams: 01/31/21 13:38 01/31/21 13:38 Labs: Laboratory Results - last 24 hr 01/31/21 01/31/21 01/31/21 13:38 13:38 13:38 WBC 23.3 H RBC 4.59 Hgb 12.2 Hct 37.0 MCV 80.5 MCH 26.6 MCHC 33.0 RDW 17.3 H Plt Count 585 H Neut % (Auto) 82.7 H Lymph % (Auto) 10.8 L Chaves % (Auto) 5.5 Eos % (Auto) 0.2 L Baso % (Auto) 0.8 Neut # (Auto) 21422 H Lymph # (Auto) 2500 Chaves # (Auto) 1300 H Eos # (Auto) 0 Baso # (Auto) 200 H Sodium 138 Potassium 4.1 Chloride 93 L Carbon Dioxide 37 H BUN 16 Creatinine 0.62 Estimated GFR > 60.0 BUN/Creatinine Ratio 25.8 H Glucose 82 Lactate 1.1 Calcium 10.2 Total Bilirubin 0.4 AST 25 ALT 16 Alkaline Phosphatase 152 H C-Reactive Protein NT-Pro-B Natriuret Pep Total Protein 8.6 H Albumin 4.4 Globulin 4.2 H Albumin/Globulin Ratio 1.0 SARS-CoV-2 (PCR) 01/31/21 01/31/21 01/31/21 13:38 13:38 15:55 WBC RBC Hgb Hct MCV MCH MCHC RDW Plt Count Neut % (Auto) Lymph % (Auto) Chaves % (Auto) Eos % (Auto) Baso % (Auto) Neut # (Auto) Lymph # (Auto) Chaves # (Auto) Eos # (Auto) Baso # (Auto) Sodium Potassium Chloride Carbon Dioxide BUN Creatinine Estimated GFR BUN/Creatinine Ratio Glucose Lactate Calcium Total Bilirubin AST ALT Alkaline Phosphatase C-Reactive Protein 2.3 H NT-Pro-B Natriuret Pep 218 H Total Protein Albumin Globulin Albumin/Globulin Ratio SARS-CoV-2 (PCR) Negative Assessment & Plan Assessment & Plan narrative: 1. intractable nausea and vomiting - patient with symptoms for the past 2 days. I suspect this is related to her recent antibiotic infusion (suspect dalbavancin however unable to confirm at this time). Though cannot rule out infectious source though her symptoms appear to be improving and her LE wounds look well. Will need to see records from ID, however. - continue symptomatic relief with zofran, maalox. - no current diarrheal illness, consider stool testing if she develops diarrhea. - alternative possibilities include a viral gastroenteritis. - advance diet as tolerated. - obtain records from ID. If medication reaction, will likely need follow up with further recommendations as an outpatient. 2. history of CVA ?- continue plavix, lipitor 80 mg 3. Leukocytosis, acute on chronic, present on admission ?- probable acute rise secondary to dehydration, but has been chronically elevated. Prior workup with wound care done here shows no evidence of multiple myeloma. Recommend outpatient hematology consultation 4. DM, chronic ?- some hypoglycemia on admission, takes 55 U BID regularly. Continue 40 mg daily for now. Increase as tolerated/needed 5. PVD ?- continue plavix, statin 6. HTN, will hold home losartan currently in setting of possible low BP. 7. Chronic LE diabetic foot ulcers ?- continue local wound care, does not appear to be actively infected but continue to monitor. Obtain ID recommendations from [facility]. Sees Dr. Green reportedly. suspect she received dalbavancin. - hold further antibiotic therapies at this time pending records, presumably dalbavancin is still active as well. Code: DNR, surrrogate / DPOA is patient's granddaughter. Dispo:? Admitted under observation status as her stay is is not expected to exceed 2 midnights DVT:? Lovenox I have utilized all available immediate resources to obtain, update, or review the patient's current medications. COVID-19 COVID-19 status: Negative Time Spent With Patient Critical Care time: I spent a total of [] minutes of critical care time on this patient's care today; this time is exclusive of procedural time. Quality MIPS - Admit I confirm the patient?s Advance Care Plan is present, Code status is documented, Surrogate decision maker is in patient?s record [If Yes, STOP here]: Yes
[2021-01-31] MEDS: LACTATED RINGERS 1,000 ML 70 ML IV (21:10)
[2021-01-31] MEDS: CYCLOBENZAPRINE 10 MG TABLET PO (21:11)
[2021-01-31] MEDS: NYSTATIN POWDER 15GM 1 APPLIC TOP (21:28)
[2021-01-31] MEDS: DEXTROSE 50 % IN WATER 25 GM/50 ML SYRINGE IV (21:29)
[2021-02-01] VITALS (10 sets, daily range): BP systolic 96–145; BP diastolic 53–74; PULSE 83–97; RESP 18–24; TEMP 36.4–37.3; O2SAT 91–96
--- NOTE | 2021-02-01 02:25 | PC.NURSE ---
Addendum entered by Melba Fowler R.N. 02/01/21 04:06: RT assessed patient and increased O2 to 6L NC. Will monitor and adjust as needed. Addendum entered by Melba Fowler R.N. 02/01/21 02:28: edit to last note: Provider JED Glass, was notified of the multiple low BG and it was discussed that the patient has Lantus ordered for AM. Provider added labs to check patients A1C and will adjust medications as needed. No further orders at this time. Original Note: Patient's BG at 0130 was 54. Patient refused some other options offered but would take, 2 honey packets and 180cc of cranberry juice. At recheck patient was 57 and would accept chocolate milk. Will recheck and treat as needed.
--- NOTE | 2021-02-01 04:08 | PC.NURSE ---
Addendum entered by Melba Fowler R.N. 02/01/21 06:13: Late Entry: This RN was told that the patient had two IV sites, a LFA and LAC, when this RN went to chart, the IV assessment showed a LFA and a RAC. The RAC was made inactive and the LAC was charted. Original Note: Note was undone d/t error in amend. Original notes below: Addendum entered by Melba Fowler R.N. 02/01/21 02:28: edit to last note: Provider JED Glass, was notified of the multiple low BG and it was discussed that the patient has Lantus ordered for AM. Provider added labs to check patients A1C and will adjust medications as needed. No further orders at this time. Original Note: Patient's BG at 0130 was 54. Patient refused some other options offered but would take, 2 honey packets and 180cc of cranberry juice. At recheck patient was 57 and would accept chocolate milk. Will recheck and treat as needed.
[2021-02-01 05:40] LABS: Hemoglobin A1C% w Est Avg Glu 6.9 % (4.0-6.0)
[2021-02-01 05:45] LABS: C-Reactive Protein Quant 1.7 mg/dL (<1.0)
[2021-02-01 05:59] LABS: Erythrocyte Sedimentation Rate 72 MM/HR (0-20)
[2021-02-01] MEDS: MAG HYDROX/ALUM/SIMETH 30 ML UDC PO (06:02)
--- NOTE | 2021-02-01 08:04 | PC.NURSE ---
Patients blood sugar at 0745 is 83. She is incontinent of urine, will see if she is able to use a bed storm or commode after we ask her how she ambulates or if she is able. Patient has multiple skin issues that can be seen under physical assessment. Bilateral feet had dressings on them as she gets them wrapped at the wound clinic. Patient has some foot ulcers, as she is diabetic. Voices no complaints of pain or discomfort, lying supine and waiting for breakfast.
[2021-02-01] MEDS: LACTATED RINGERS 1,000 ML 70 ML IV (08:35)
[2021-02-01] MEDS: MEROPENEM 1 GM in SODIUM CHLORIDE 0.9% 100 ML 200 ML IV ×3 (08:35→23:58)
[2021-02-01] MEDS: ENOXAPARIN 40 MG/0.4 ML SYRINGE SUBCUT (08:38)
[2021-02-01] MEDS: CITALOPRAM 10 MG TABLET 40 MG PO (08:39)
[2021-02-01] MEDS: ATORVASTATIN 20 MG TABLET 80 MG PO (08:39)
[2021-02-01] MEDS: PANTOPRAZOLE DR 40 MG TABLET PO (08:39)
[2021-02-01] MEDS: CLOPIDOGREL 75 MG TABLET PO (08:39)
[2021-02-01] MEDS: CYCLOBENZAPRINE 10 MG TABLET PO ×2 (08:40→20:18)
[2021-02-01] MEDS: DULOXETINE 20 MG CAPSULE PO (08:40)
--- NOTE | 2021-02-01 13:14 | CM.DPC ---
Addendum entered by ANNIE Robles 02/01/21 16:07: ADD: referral now confirmed to [facility] and [facility] Addendum entered by ANNIE Robles 02/01/21 14:46: CORRECTION: No referral faxed to [facility]. Original Note: DCP Note [employer]ATOR faxes face sheet and H&P to [facility], [facility] and [facility] for review for SNF rehab bed. Plan: continue to seek SNF rehab bed for patient upon d/c. Tessie Canada MEDICAL INSTRUMENT CABLE [employer]ABRICATOR
--- NOTE | 2021-02-01 14:42 | PM.PN.1 ---
Subjective Subjective Date Patient Seen: 02/01/21 Time Patient Seen: 14:42 Interval history: Improved nausea today, able to tolerate minimal PO intake however. Blood sugars are low still, lantus held thus far. Will likely need to be resumed once tolerating more PO intake. Exam Vital Signs (past 8 hours): - 02/01/21 08:00 02/01/21 12:00 Temperature 98.3 F 98.1 F Pulse Rate 86 97 H Respiratory Rate 24 18 Blood Pressure 145/71 H 135/68 Pulse Oximetry 92 93 Oxygen Delivery Method Room Air Oxygen Flow Rate 0 Narrative Exam Narrative: GENERAL APPEARANCE: Well developed, no acute distress. SKIN: Inspection of the skin reveals no petechiae. Ulcerations noted below. HEENT:? Normocephalic atraumatic, extraocular muscles are intact, oropharynx is clear and mucous membranes are dry, neck is supple without adenopathy NECK: Supple and symmetric. CHEST: Normal AP diameter, no tenderness LUNGS: Auscultation of the lungs revealed diminished breath sounds bilaterally CARDIOVASCULAR: regular rate and rhythm, no murmurs ABDOMEN: Soft, nontender, and nondistended. Obese abdomen. MUSCULOSKELETAL: muscle strength equal bilaterally, weak chronically. No joint effusions. EXTREMITIES: No cyanosis, clubbing.? There is trace lower extremity edema and some chronic venous stasis changes.? Chronic appearing bilateral diabetic foot ulcers with no surrounding induration, or tenderness. Dressings intact. There is very mild erythema of her R heel, but patient reports this is improved. NEUROLOGIC: Alert and oriented x 3. Normal affect. Objective Labs Result Diagrams: 01/31/21 13:38 01/31/21 13:38 Labs: Laboratory Results - last 24 hr 01/31/21 01/31/21 01/31/21 13:38 13:38 13:38 ESR Hemoglobin A1c Lactate 1.1 C-Reactive Protein 2.3 H NT-Pro-B Natriuret Pep 218 H SARS-CoV-2 (PCR) 01/31/21 02/01/21 02/01/21 15:55 05:05 05:05 ESR 72 H Hemoglobin A1c Lactate C-Reactive Protein 1.7 H NT-Pro-B Natriuret Pep SARS-CoV-2 (PCR) Negative 02/01/21 05:05 ESR Hemoglobin A1c 6.9 H Lactate C-Reactive Protein NT-Pro-B Natriuret Pep SARS-CoV-2 (PCR) [facility] Medical History CHF (congestive heart failure) Diabetes Hyperlipidemia Hypertension Peripheral neuropathy PVD (peripheral vascular disease) TIA (transient ischemic attack) Surgical History (Updated 01/31/21 @ 19:49 by Rafael Mccoy DO) H/O angioplasty History of cholecystectomy Social History household members: caregiver Smoking Status: Current every day smoker alcohol intake: never Assessment & Plan Assessment & Plan narrative: ?1. intractable nausea and vomiting ?- patient with symptoms for the past 2 days. I suspect this is related to her recent antibiotic infusion dalbavancin given the day prior to the start of her symtpoms. Though cannot rule out infectious source though her symptoms appear to be improving and her LE wounds look well. - continue symptomatic relief with zofran, maalox. ?- no current diarrheal illness, consider stool testing if she develops diarrhea. ?- alternative possibilities include a viral gastroenteritis. - advance diet as tolerated. -will need follow up with further recommendations as an outpatient with ID. 2. history of CVA ?- continue plavix, lipitor 80 mg 3. Leukocytosis, acute on chronic, present on admission ?- probable acute rise secondary to dehydration, but has been chronically elevated. Prior workup with wound care done here shows no evidence of multiple myeloma. Recommend outpatient hematology consultation 4. DM, chronic ?- some hypoglycemia on admission, takes 55 U BID regularly. Continue 40 mg daily for now. Increase as tolerated/needed. a1c is 6.9%. 5. PVD ?- continue plavix, statin 6. HTN, will hold home losartan currently in setting of possible low BP. 7. Acute on Chronic LE diabetic foot ulcers ?- continue local wound care. - Per ID recommendation from visit on 01/29. Patient was to start 2 weeks of meropenem for non-responsive foot ulcerations. She has tried multiple therapies as an outpatient which have failed thus far. For MRSA component, she was placed on dalbavancin. This lasts for approximately 14 days. Once discharge to SNF she will likely need to be changed back after this timeframe to vancomycin but would seek recommendations from her ID provider at that time as an outpatient. - continue meropenem, today day 1 of 14 per ID recommendations. Check weekly CBC,CMP,CK. ESR 72, CRP 1.7. - PICC line on wednesday. - unable to return to assisted living, will need SNF. Code: DNR, surrrogate / DPOA is patient's granddaughter. Dispo:?changed to inpatient for diabetic foot ulcers not responding to outpatient therapies, requires meropenem per infectious disease. DVT:? Lovenox I have utilized all available immediate resources to obtain, update, or review the patient's current medications. Time Spent With Patient Critical Care time: I spent a total of [] minutes of critical care time on this patient's care today; this time is exclusive of procedural time.
--- NOTE | 2021-02-01 14:44 | CM.IDA ---
Initial DCP Assessment Note Pt is a 61 yo female, resident At [facility], arrives w/ N/V. Patient admitted observation for intractable nausea and vomiting and changed to inpatient for failed outpatient management of diabetic foot ulcers. PCP: Loly Zambrano Payer: Alejandro/JAYME Reviewed chart, met w/patient to introduce role. Patient currently lives at [facility] and states she wishes she had her own home but [facility] has been working out well. Patient's dog is being cared for by dtr. Patient outlines the experience she had while living w/ ex-healthcare social worker Stephanie and knows it wasn't a good situation. Patient wants to return to [facility] lola but agreeable to SNF stay if IV abx are required Patient discussed in multidisciplinary rounds; she will require 2 weeks of IV Meropenum, per doctor Green (ID, [facility]). She will also require infusion of IV dalbavancin every two weeks (received a dose last Wed) for her diabetic foot ulcers. Patient is established at the wound care center, long time patient there. PICC will be placed by staff [id number] Placed call to [facility], they are not contracted w/ Alejandro. Broader SNF search started by ANNIE Hood who faxed to [facility], [facility] and [facility]. (did not yet fax to [place]). Later learned, According to Dr Mccoy, patient reports she will have MCR as of Wednesday February 03, 2021. CM team will confirm. Plan: DC to SNF for ongoing IV abx, wound care before return to [facility] Will need to follow closely for coordination. PASRR completed ANNIE Frazier Discharge Planning/Care Management CM Discharge Assessment Start: 02/01/21 14:42 Freq: Status: Active Protocol: Document 02/01/21 14:42 DESTINEE (Rec: 02/01/21 14:44 DESTINEE [id number]) Discharge Planning Assessment Assigned Manager Provider Relations ANNIE Miles DPOA/Assigned Designee Name grand Trae krishan Contact Information [phone] Advance Directives? No Advance Directives on File No History Provided By Patient Prior Living Arrangements Assisted Living Household Members caregiver Type of transporation used prior to Relies on Others admit Facility Name Admitted From: [facility] Willing to Return to Facility? Yes Independent with ADL's No Is patient alert and oriented? Yes Needs Assistance With Bathing,Grooming,Meal Prep, Toileting,Managing Medications ,Home Chores / Shopping Patient/Family Preference [facility] Facility Comment Need to find a SNF for IV abx course Referrals Initiated [facility],Other
[2021-02-01] MEDS: ACETAMINOPHEN 325 MG TABLET 650 MG PO (15:47)
[2021-02-01] MEDS: NYSTATIN POWDER 15GM 1 APPLIC TOP (20:18)
[2021-02-01] MEDS: ZOLPIDEM 5 MG TABLET 10 MG PO (20:18)
[2021-02-02] VITALS (12 sets, daily range): BP systolic 106–152; BP diastolic 56–81; PULSE 80–94; RESP 16–24; TEMP 36.2–36.7; O2SAT 92–96
[2021-02-02] MEDS: LACTATED RINGERS 1,000 ML 70 ML IV
--- NOTE | 2021-02-02 02:54 | PC.NURSE ---
Addendum entered by Nasima Bernal R.N. 02/02/21 03:22: JED Glass, informed that patient has not had BM since 01/29; new order received for daily Senna. Original Note: Patient difficult to arouse initially as sleeping deeply likely related to taking Ambien on previous shift. Once awakened was able to interact well. Was mostly oriented but did not know day of the week or that she is in the hospital. Breath sounds diminished but CTA with RA sat of 95%. HRR. Denied nausea at time of assessment. BT present and abdomen is soft but has not had a BM since 01/29; no bowel meds ordered at this time. Is incontinent of urine. Attempts to help turn but needing much assistance so turning schedule initiated q2h and has waffle cushion under buttocks. Dressings to bilateral feet are CDI with + pulses. Denied pain. Fall risk score is high and bed alarm is activated. Noted to have staph aureus growing on wound cultures so placed on contact isolation.
[2021-02-02 05:44] LABS: Add Manual Diff / Slide Review NO; Basophils Absolute Auto 100 /uL (0-100); Basophils Percent Auto 0.6 % (0-2); Eosinophils Absolute Auto 400 /uL (0-450); Eosinophils Percent Auto 3.2 % (2-4); Hematocrit 34.1 % (36-46); Hemoglobin 10.8 g/dL (12.0-16.0); Lymphocytes Absolute Auto 2200 /uL (1100-4500); Lymphocytes Percent Auto 16.3 % (25-40); Mean Corpuscular HGB Conc 31.8 % (30-36); Mean Corpuscular Hemoglobin 25.9 PG (26-34); Mean Corpuscular Volume 81.6 fL (80-100); Monocytes Absolute Auto 1300 /uL (0-900); Monocytes Percent Auto 9.2 % (3-14); Neutrophils Absolute Auto 9800 /uL (1500-7000); Neutrophils Percent Auto 70.7 % (50-75); Platelet Count 482 X10^3/uL (150-400); Red Blood Cell Count 4.18 X10^6/uL (4.0-5.2); Red Cell Distribution Width 17.3 % (11.6-14.8); White Blood Cell Count 13.8 X10^3/uL (4.5-11.0)
[2021-02-02 06:02] LABS: Creatine Kinase 61 U/L (30-135)
[2021-02-02 06:05] LABS: Alanine Aminotransferase 14 IU/L (<35); Albumin 3.6 g/dL (3.5-5.0); Albumin Globulin Ratio 1.1 (1.0-2.8); Alkaline Phosphatase 116 U/L (38-126); Aspartate Aminotransferase 24 IU/L (14-36); Bilirubin Total 0.4 mg/dL (0.2-1.3); Blood Urea Nitrogen 12 mg/dL (7-17); Calcium 8.6 mg/dL (8.4-10.2); Carbon Dioxide 32 mmol/L (22-32); Chloride 100 mmol/L (98-107); Estimated Glomerular Filt Rate > 60.0 mL/min (>60); Globulin 3.4 g/dL (1.7-4.1); Glucose 113 mg/dL (80-110); HEMOLYSIS < 15 (0-50); Magnesium 1.9 mg/dL (1.6-2.3); Potassium 4.2 mmol/L (3.4-5.1); Sodium 137 mmol/L (137-145)
[2021-02-02] MEDS: MEROPENEM 1 GM in SODIUM CHLORIDE 0.9% 100 ML 200 ML IV ×2 (08:26→17:07)
[2021-02-02] MEDS: CLOPIDOGREL 75 MG TABLET PO (08:30)
[2021-02-02] MEDS: CYCLOBENZAPRINE 10 MG TABLET PO ×2 (08:30→21:24)
[2021-02-02] MEDS: CITALOPRAM 10 MG TABLET 40 MG PO (08:30)
[2021-02-02] MEDS: ENOXAPARIN 40 MG/0.4 ML SYRINGE SUBCUT (08:30)
[2021-02-02] MEDS: DULOXETINE 20 MG CAPSULE PO (08:31)
[2021-02-02] MEDS: SENNOSIDES 8.6 MG TABLET PO (08:31)
[2021-02-02] MEDS: PANTOPRAZOLE DR 40 MG TABLET PO (08:31)
[2021-02-02] MEDS: ATORVASTATIN 20 MG TABLET 80 MG PO (08:31)
--- NOTE | 2021-02-02 08:31 | CM.DPC ---
Addendum entered by Laura Espinoza R.N. 02/02/21 14:29: Spoke to patient and updated her as to what facilities have been notified. She indicated, she shouldn't need 6 weeks, should be 14 days. Let her know that more information can be obtained by hospitalist. Let her know that so far this telehealth case manager has tried several facilities, and [facility] is a possibility, as well as [facility], but have not yet heard back from them. Addendum entered by Laura Espinoza R.N. 02/02/21 13:23: Called Darlene at [facility] in [place]. Her phone number is: [phone]. Gave her an update on patient, and she is willing to review. She gave a fax number of: [phone]. Faxed her over clinical information, including face sheet, H&P, med sheets, and today's progress note. Let Darlene know that the plan is for her to return to [facility]. Darlene stated that she could contact [facility] about the medication, as she will need to be on one of the Mirapenum drugs, or one that is in the same class. Called Mendoza at [facility], and told him about the referral. This was already sent to him, and he can review Wednesday. Stated that they should have a bed available by next week, are currently full. Have already left a message with [facility], [facility] and [facility] can't accept. Addendum entered by Laura Espinoza R.N. 02/02/21 10:50: Spoke to Caterina at [facility], and stated, due to the cost of the medication, they can't accept. May need to discuss with hospitalist if there is another lower cost of medication that she can take. Will follow up with [facility], and [facility]. Original Note: DCP Cont: Spoke to Carolyn in admissions at [facility]. Asked her if they would be willing to accept a single case agreement for patient since she resides at [facility]. Carolyn indicated that they normally have to be refused by 3 facilities before they can start the process. Have already received a message from Magy at [facility], that they can't accept patient. She did not state her reason. This is one facility so far that is not accepting, and according to SENIOR QUALITY MANAGER notes, many facilities have received referrals. If patient is to have Medicare starting tomorrow, [facility] is already handling case and unlikely that she can be switched over for this hospital stay or skilled placement. Patient is needing 6 weeks of IV ABO, and [facility] can't accept patient with IV ABO, and even a PICC line, so doing outpatient treatment would not be feasable. P: DCP to continue to follow. and will attempt to follow up with some of the facilities that have been faxed, such as [facility], [facility], [facility], and [facility]. Laura Espinoza RN/Cider Press Operator
[2021-02-02] MEDS: NYSTATIN POWDER 15GM 1 APPLIC TOP ×2 (08:32→21:24)
[2021-02-02] MEDS: INSULIN LISPRO 100 UNIT/ML 3ML VIAL SUBCUT ×3 (09:33→17:08)
[2021-02-02] MEDS: INSULIN GLARGINE 100 UNIT/ML 3ML PEN 40 UNIT SUBCUT (09:34)
--- NOTE | 2021-02-02 12:09 | P.PN_ITS ---
Subjective Subjective Date Patient Seen: 02/02/21 Time Patient Seen: 12:10 Interval history: Improved nausea today, able to tolerate some more PO intake however still fairly small amounts. No chest pain, no vomiting. Denies further complaints other than wishing to return home. Exam Vital Signs (past 8 hours): - 02/02/21 04:45 02/02/21 08:00 02/02/21 10:33 Temperature 97.4 F L 97.6 F Pulse Rate 80 84 Respiratory Rate 24 20 Blood Pressure 144/81 H 152/79 H Pulse Oximetry 94 95 94 Oxygen Delivery Method Room Air Oxygen Flow Rate 0 Narrative Exam Narrative: GENERAL APPEARANCE: Well developed, no acute distress. SKIN: Inspection of the skin reveals no petechiae. Ulcerations noted below. HEENT:? Normocephalic atraumatic, extraocular muscles are intact, oropharynx is clear and mucous membranes are dry, neck is supple without adenopathy NECK: Supple and symmetric. CHEST: Normal AP diameter, no tenderness LUNGS: Auscultation of the lungs revealed diminished breath sounds bilaterally CARDIOVASCULAR: regular rate and rhythm, no murmurs ABDOMEN: Soft, nontender, and nondistended. Obese abdomen. MUSCULOSKELETAL: muscle strength equal bilaterally, weak chronically. No joint effusions. EXTREMITIES: No cyanosis, clubbing.? There is trace lower extremity edema and some chronic venous stasis changes.? Chronic appearing bilateral diabetic foot ulcers with no surrounding induration, or tenderness. Dressings intact. There is very mild erythema of her R heel, but patient reports this is improved. NEUROLOGIC: Alert and oriented x 3. Normal affect. Objective Labs Result Diagrams: 02/02/21 05:04 02/02/21 05:04 Labs: Laboratory Results - last 24 hr 02/02/21 02/02/21 02/02/21 05:04 05:04 05:04 WBC 13.8 H RBC 4.18 Hgb 10.8 L Hct 34.1 L MCV 81.6 MCH 25.9 L MCHC 31.8 RDW 17.3 H Plt Count 482 H Neut % (Auto) 70.7 Lymph % (Auto) 16.3 L [place] % (Auto) 9.2 Eos % (Auto) 3.2 Baso % (Auto) 0.6 Neut # (Auto) 9800 H Lymph # (Auto) 2200 [place] # (Auto) 1300 H Eos # (Auto) 400 Baso # (Auto) 100 Sodium 137 Potassium 4.2 Chloride 100 Carbon Dioxide 32 BUN 12 Creatinine 0.60 Estimated GFR > 60.0 BUN/Creatinine Ratio 20.0 Glucose 113 H Calcium 8.6 Magnesium 1.9 Total Bilirubin 0.4 AST 24 ALT 14 Alkaline Phosphatase 116 Total Creatine Kinase 61 Total Protein 7.0 Albumin 3.6 Globulin 3.4 Albumin/Globulin Ratio 1.1 PFSH Medical History CHF (congestive heart failure) Diabetes Hyperlipidemia Hypertension Peripheral neuropathy PVD (peripheral vascular disease) TIA (transient ischemic attack) Surgical History (Updated 01/31/21 @ 19:49 by Rafael Mccoy DO) H/O angioplasty History of cholecystectomy Social History household members: caregiver Smoking Status: Current every day smoker alcohol intake: never Assessment & Plan Assessment & Plan narrative: 1. nausea and vomiting, improved ?- patient with symptoms for the 2 days prior to admission. I suspect this is related to her recent antibiotic infusion dalbavancin given the day prior to the start of her symtpoms. Though cannot rule out infectious source though her symptoms appear to be improving and her LE wounds look well. - continue symptomatic relief with zofran, maalox. ?- no current diarrheal illness, consider stool testing if she develops diarrhea. ?- alternative possibilities include a viral gastroenteritis. - advance diet as tolerated. -will need follow up with further recommendations as an outpatient with ID re: Dalbavancin. 2. history of CVA ?- continue plavix, lipitor 80 mg 3. Leukocytosis, acute on chronic, present on admission ?- probable acute rise secondary to dehydration, but has been chronically elevated. Now improved to 13.8 today after starting meropenem. Prior workup with wound care done here shows no evidence of multiple myeloma. Recommend outpatient hematology consultation. 4. DM, chronic ?- some hypoglycemia on admission, takes 55 U BID regularly. Continue 40 mg aby ly for now. Increase as tolerated/needed. a1c is 6.9%. 5. PVD ?- continue plavix, statin 6. HTN, will hold home losartan currently in setting of possible low BP. 7. Acute on Chronic LE diabetic foot ulcers ?- continue local wound care. ?- Per ID recommendation from visit on 01/29. Patient was to start 2 weeks of meropenem for her foot ulcerations. She has tried multiple therapies as an outpatient which have failed thus far. For MRSA component, she was placed on dalbavancin. Wound cultures here show sensitivity to linezolid or vancomycin, other alternative options. Dalbavancin lasts for approximately 14 days (given 01/29). Once discharge to SNF she will likely need to be changed back after this timeframe to vancomycin but would seek recommendations from her ID provider at that time as an outpatient. - continue meropenem, today day 2 of 14 per ID recommendations. Check weekly CBC,CMP,CK. ESR 72, CRP 1.7. - PICC line on wednesday. - unable to return to assisted living given meropenem recommendation, will need SNF. Code: DNR, surrrogate / DPOA is patient's granddaughter. Dispo:?changed to inpatient for diabetic foot ulcers not responding to outpatient therapies, requires meropenem or other carbapenem per infectious disease. DVT:? Lovenox Time Spent With Patient Critical Care time: I spent a total of [] minutes of critical care time on this patient's care today; this time is exclusive of procedural time.
[2021-02-03] VITALS (13 sets, daily range): BP systolic 121–143; BP diastolic 55–84; PULSE 83–92; RESP 14–20; TEMP 36–36.6; O2SAT 91–97
[2021-02-03] MEDS: MEROPENEM 1 GM in SODIUM CHLORIDE 0.9% 100 ML 200 ML IV ×2 (00:42→08:01)
[2021-02-03 05:35] LABS: Add Manual Diff / Slide Review NO; Basophils Absolute Auto 200 /uL (0-100); Basophils Percent Auto 0.9 % (0-2); Eosinophils Absolute Auto 700 /uL (0-450); Hematocrit 33.2 % (36-46); Hemoglobin 10.6 g/dL (12.0-16.0); Lymphocytes Absolute Auto 2900 /uL (1100-4500); Lymphocytes Percent Auto 16.7 % (25-40); Mean Corpuscular HGB Conc 31.8 % (30-36); Mean Corpuscular Hemoglobin 25.8 PG (26-34); Mean Corpuscular Volume 81.3 fL (80-100); Monocytes Absolute Auto 1500 /uL (0-900); Monocytes Percent Auto 8.4 % (3-14); Neutrophils Absolute Auto 12300 /uL (1500-7000); Platelet Count 494 X10^3/uL (150-400); Red Blood Cell Count 4.09 X10^6/uL (4.0-5.2); Red Cell Distribution Width 16.7 % (11.6-14.8); White Blood Cell Count 17.6 X10^3/uL (4.5-11.0)
[2021-02-03] MEDS: LACTATED RINGERS 1,000 ML 70 ML IV ×2 (05:38→20:20)
[2021-02-03 06:16] LABS: Alanine Aminotransferase 13 IU/L (<35); Albumin 3.5 g/dL (3.5-5.0); Albumin Globulin Ratio 1.1 (1.0-2.8); Alkaline Phosphatase 110 U/L (38-126); Aspartate Aminotransferase 19 IU/L (14-36); BUN Creatinine Ratio 19.7 (6-22); Bilirubin Total 0.3 mg/dL (0.2-1.3); Blood Urea Nitrogen 12 mg/dL (7-17); Calcium 8.7 mg/dL (8.4-10.2); Carbon Dioxide 31 mmol/L (22-32); Chloride 102 mmol/L (98-107); Estimated Glomerular Filt Rate > 60.0 mL/min (>60); Globulin 3.2 g/dL (1.7-4.1); Glucose 131 mg/dL (80-110); HEMOLYSIS < 15 (0-50); Magnesium 1.9 mg/dL (1.6-2.3); Potassium 4.4 mmol/L (3.4-5.1); Sodium 137 mmol/L (137-145); Total Protein 6.7 g/dL (6.3-8.2)
[2021-02-03] MEDS: ATORVASTATIN 20 MG TABLET 80 MG PO (08:04)
[2021-02-03] MEDS: CITALOPRAM 10 MG TABLET 40 MG PO (08:04)
[2021-02-03] MEDS: SENNOSIDES 8.6 MG TABLET PO (08:05)
[2021-02-03] MEDS: CLOPIDOGREL 75 MG TABLET PO (08:05)
[2021-02-03] MEDS: INSULIN GLARGINE 100 UNIT/ML 3ML PEN 40 UNIT SUBCUT (08:05)
[2021-02-03] MEDS: CYCLOBENZAPRINE 10 MG TABLET PO ×2 (08:05→20:22)
[2021-02-03] MEDS: PANTOPRAZOLE DR 40 MG TABLET PO (08:05)
[2021-02-03] MEDS: ENOXAPARIN 40 MG/0.4 ML SYRINGE SUBCUT (08:08)
[2021-02-03] MEDS: INSULIN LISPRO 100 UNIT/ML 3ML VIAL SUBCUT ×4 (08:08→20:24)
[2021-02-03] MEDS: DULOXETINE 20 MG CAPSULE PO (08:08)
[2021-02-03] MEDS: NYSTATIN POWDER 15GM 1 APPLIC TOP ×2 (10:14→20:18)
--- NOTE | 2021-02-03 10:45 | PC.NURSE ---
Addendum entered by Nell Fink R.N. 02/03/21 18:16: Wound care performed on bilateral feet, hydrofera blue applied x 4, covered with ABD pad, secured with Kerlix. Patient tolerated. Original Note: Patient a/o x 3, VSS, lungs CTA, diminished, currently on RA, 96%. Patient denies n/v, reports last BM was on monday 01/29, patient reports this is WNL for her, denies abdominal pain or tenderness, BT active. [employer] of stool and urine, changed, bathed, reposition. Patient tolerated. Bilateral foot dsg remain CDI, legs elevated for comfort. Fluids running at 70 cc/hr per MD order. Patient denies further needs at this time. Call light in reach, bed alarm off.
--- NOTE | 2021-02-03 11:45 | CM.DPC ---
Addendum entered by Laura Espinoza R.N. 02/03/21 13:20: Spoke to [facility], since patient is currently under their services at [facility]. Let them know that patient is still in the hospital, and expected to go to short term intermediate for ABO. Can update them upon discharge. Addendum entered by Laura Espinoza R.N. 02/03/21 12:35: Updated [facility], that discharge planning is looking for a facility for patient that can complete her IV ABO before returning to [facility]. Addendum entered by Laura Espinoza R.N. 02/03/21 12:20: Mendoza called back from [facility], and confirmed that her coverage here is the [facility]. He will be calling them today to see if they can do a carve out for her medication. Talked to Neelam at [facility] as well, since they are owned by the same [employer]. as [facility]. Let her know that if [facility] does not work out, that will be the third facility that has denied, and [facility] requires three facilities to deny before they can do a single case agreement. Neelam indicated, she is willing to review if [facility] does not work out. Original Note: DCP Cont: Spoke to Mendoza at [facility]. They are reviewing and may be initiating the [facility] auth. Let him know that patient will need IV ABO until approximately the , which was discussed today during team rounds. Patient does not yet have a PICC line. Mendoza was requesting to have nursing notes, care management and updated progress note. Faxed them over to him at Mendoza's attention. This operations planner did also call [facility] in [place], and confirmed that they have no beds available. P: DCP to continue to work on facility that can accept patient for short term antibiotics before returning to [facility]. So far, [facility] is reviewing to the point where they may be starting [facility] auth. [facility] has not called back, but [facility] in [place] is reviewing. Have not yet spoken to [facility]. Laura Espinoza, RN/Software Development Specialist
--- NOTE | 2021-02-03 12:00 | DI.RAD.S_ITS ---
PROCEDURE: XR CHEST FOR PICC 1V INDICATIONS: PICC LINE PLACEMENT COMPARISON: None. FINDINGS: PICC was placed by the intravenous therapy team from the right side. Fluoroscopic spot film demonstrates the tip of PICC projecting to the area of mid SVC IMPRESSION: Tip of PICC projects to the area of mid SVC. Dictated by: Gema Sotelo MD, PhD on 02/03/2021 at 11:27 Approved by: Gema Sotelo MD, PhD on 02/03/2021 at 11:27
--- NOTE | 2021-02-03 15:22 | PM.PN.1 ---
Subjective Subjective Date Patient Seen: 02/03/21 Time Patient Seen: 08:00 Interval history: Today she feels improved. She has no complaints now with resolved nausea/vomiting. No lower extremity pain. Exam Vital Signs (past 8 hours): - 02/03/21 07:31 02/03/21 07:51 02/03/21 09:00 Temperature 96.8 F L Pulse Rate 83 Respiratory Rate 14 Blood Pressure 143/74 H Pulse Oximetry 96 94 96 02/03/21 11:00 02/03/21 11:21 Temperature 97.8 F Pulse Rate 86 Respiratory Rate 18 Blood Pressure 136/55 L Pulse Oximetry 96 96 Oxygen Delivery Method Room Air Oxygen Flow Rate 0 Narrative Exam Narrative: GENERAL APPEARANCE: no acute distress LUNGS: clear bilaterallyi CARDIOVASCULAR: regular rate and rhythm, no murmurs ABDOMEN: Soft, nontender, and nondistended. Obese abdomen. MUSCULOSKELETAL: muscle strength equal bilaterally, weak chronically. No joint effusions. EXTREMITIES: No cyanosis, clubbing.? Chronic bilateral diabetic foot ulcers with no surrounding induration, or tenderness. mild erythema of her R heel, but patient reports this is improved. NEUROLOGIC: Alert and oriented x 3. Normal affect. Objective Labs Result Diagrams: 02/03/21 05:20 02/03/21 05:20 Labs: Laboratory Results - last 24 hr 02/03/21 02/03/21 05:20 05:20 WBC 17.6 H RBC 4.09 Hgb 10.6 L Hct 33.2 L MCV 81.3 MCH 25.8 L MCHC 31.8 RDW 16.7 H Plt Count 494 H Neut % (Auto) 70.0 Lymph % (Auto) 16.7 L [place] % (Auto) 8.4 Eos % (Auto) 4.0 Baso % (Auto) 0.9 Neut # (Auto) 75657 H Lymph # (Auto) 2900 [place] # (Auto) 1500 H Eos # (Auto) 700 H Baso # (Auto) 200 H Sodium 137 Potassium 4.4 Chloride 102 Carbon Dioxide 31 BUN 12 Creatinine 0.61 Estimated GFR > 60.0 BUN/Creatinine Ratio 19.7 Glucose 131 H Calcium 8.7 Magnesium 1.9 Total Bilirubin 0.3 AST 19 ALT 13 Alkaline Phosphatase 110 Total Protein 6.7 Albumin 3.5 Globulin 3.2 Albumin/Globulin Ratio 1.1 [facility] Medical History CHF (congestive heart failure) Diabetes Hyperlipidemia Hypertension Peripheral neuropathy PVD (peripheral vascular disease) TIA (transient ischemic attack) Surgical History (Updated 01/31/21 @ 19:49 by Rafael Mccoy DO) H/O angioplasty History of cholecystectomy Social History household members: caregiver Smoking Status: Current every day smoker alcohol intake: never Assessment & Plan Assessment & Plan narrative: 1. nausea and vomiting, resolved - patient with symptoms for the 2 days prior to admission. possibly secondary to antibiotic infusion dalbavancin given the day prior to the start of her symtpoms. - continue symptomatic relief with zofran, maalox. - no current diarrheal illness, consider stool testing if she develops diarrhea. - alternative possibilities include a viral gastroenteritis. - advance diet as tolerated. -will need follow up with further recommendations as an outpatient with ID re: Dalbavancin. 2. history of CVA ?- continue plavix, lipitor 80 mg 3. Leukocytosis, acute on chronic, present on admission - probable acute rise secondary to dehydration, but has been chronically elevated. Now improved to 13.8 today after starting meropenem. Prior workup with wound care done here shows no evidence of multiple myeloma. - Recommend outpatient hematology consultation. 4. DM, chronic ?- some hypoglycemia on admission, takes 55 U BID regularly. Continue 40 mg daily for now. Increase as tolerated/needed. a1c is 6.9%. 5. PVD ?- continue plavix, statin 6. HTN, will hold home losartan currently in setting of possible low BP. 7. Acute on Chronic LE diabetic foot ulcers ?- continue local wound care. ?-Per Dr. Mccoy, ID had previously recommended meropenem, discussed with Dr. Green who recommended against meropenem, plan to get back with antibiotic course - PICC line on wednesday. - unable to return to assisted living given meropenem recommendation, will need SNF. Time Spent With Patient Critical Care time: I spent a total of [] minutes of critical care time on this patient's care today; this time is exclusive of procedural time.
[2021-02-04] VITALS (8 sets, daily range): BP systolic 127–137; BP diastolic 62–75; PULSE 85–90; RESP 18–20; TEMP 36.5–36.6; O2SAT 95
[2021-02-04 06:30] LABS: Add Manual Diff / Slide Review NO; Basophils Absolute Auto 100 /uL (0-100); Basophils Percent Auto 0.5 % (0-2); Eosinophils Absolute Auto 600 /uL (0-450); Eosinophils Percent Auto 3.4 % (2-4); Hematocrit 31.2 % (36-46); Lymphocytes Absolute Auto 3100 /uL (1100-4500); Lymphocytes Percent Auto 17.3 % (25-40); Mean Corpuscular HGB Conc 31.9 % (30-36); Mean Corpuscular Hemoglobin 25.6 PG (26-34); Mean Corpuscular Volume 80.2 fL (80-100); Monocytes Absolute Auto 1300 /uL (0-900); Monocytes Percent Auto 7.5 % (3-14); Neutrophils Absolute Auto 12800 /uL (1500-7000); Neutrophils Percent Auto 71.3 % (50-75); Platelet Count 461 X10^3/uL (150-400); Red Cell Distribution Width 17.1 % (11.6-14.8); White Blood Cell Count 17.9 X10^3/uL (4.5-11.0)
[2021-02-04 06:43] LABS: Alanine Aminotransferase 13 IU/L (<35); Albumin 3.3 g/dL (3.5-5.0); Albumin Globulin Ratio 1.1 (1.0-2.8); Alkaline Phosphatase 104 U/L (38-126); Aspartate Aminotransferase 17 IU/L (14-36); BUN Creatinine Ratio 21.6 (6-22); Bilirubin Total 0.2 mg/dL (0.2-1.3); Blood Urea Nitrogen 11 mg/dL (7-17); Calcium 8.3 mg/dL (8.4-10.2); Carbon Dioxide 29 mmol/L (22-32); Chloride 102 mmol/L (98-107); Estimated Glomerular Filt Rate > 60.0 mL/min (>60); Glucose 128 mg/dL (80-110); HEMOLYSIS < 15 (0-50); Magnesium 1.9 mg/dL (1.6-2.3); Potassium 4.2 mmol/L (3.4-5.1); Sodium 137 mmol/L (137-145); Total Protein 6.3 g/dL (6.3-8.2)
--- NOTE | 2021-02-04 09:09 | CM.DPC ---
Addendum entered by Laura Espinoza R.N. 02/04/21 11:47: Ila from [facility] came to see patient. She will arrange patient to be picked up at 1300. Patient will need updated JALEEL lacy, did get verbal order from Dr. Mattson. Have med sheets printed out, attempting to locate hospitalist to sign. Called Apple at [facility] and let her know that patient is being discharged today. Faxed over resumption orders for home health nursing, H&P, and yesterday's progress note, for DC Summary is not yet available. Addendum entered by Laura Espinoza R.N. 02/04/21 10:17: Patient is to be discharged back to [facility], was informed that she will not need to be on ABO, as was confirmed by hospitalist after he spoke to infectious disease MD. Updated Ila at [facility], and she will come to see her before she goes back to facility. Printed out med sheets for signature for hospitalist, nurse, Tamiko, will have him sign. Original Note: DCP Cont: Called [facility] and spoke to Mendoza in admissions, for yesterday, he indicated that he was going to contact [facility] about carve out for patient's IV ABO. He indicated that he still has a message out to them, and will let this landscape architect and planner know. P: DCP to continue to follow. Plan at this time is [facility] if they can accept with carve out. Plan B is to call Neelam at [facility], for if they do not accept, this will be the third denial, and to establish a single case contract, they need to have 3 denials. Laura Espinoza, JESSICA/Administration Internship
[2021-02-04] MEDS: CLOPIDOGREL 75 MG TABLET PO (09:35)
[2021-02-04] MEDS: ATORVASTATIN 20 MG TABLET 80 MG PO (09:35)
[2021-02-04] MEDS: CYCLOBENZAPRINE 10 MG TABLET PO (09:35)
[2021-02-04] MEDS: CITALOPRAM 10 MG TABLET 40 MG PO (09:35)
[2021-02-04] MEDS: DULOXETINE 20 MG CAPSULE PO (09:36)
[2021-02-04] MEDS: ENOXAPARIN 40 MG/0.4 ML SYRINGE SUBCUT (09:36)
[2021-02-04] MEDS: PANTOPRAZOLE DR 40 MG TABLET PO (09:36)
[2021-02-04] MEDS: SENNOSIDES 8.6 MG TABLET PO (09:37)
[2021-02-04] MEDS: INSULIN GLARGINE 100 UNIT/ML 3ML PEN 40 UNIT SUBCUT (09:39)
[2021-02-04] MEDS: NYSTATIN POWDER 15GM 1 APPLIC TOP (09:40)
[2021-02-04] MEDS: INSULIN LISPRO 100 UNIT/ML 3ML VIAL SUBCUT (12:52)
[2021-02-04 13:00] LABS: COVID19 - ADMIT (NP swab/PCR) Negative (Negative)
--- NOTE | 2021-02-04 14:20 | PC.NURSE ---
Pt A&Ox3. VSS, afebrile on RA. Pt denies pain except for when BLE's are touched from knees down. Pt with B feet dressing C/D/I/. LS diminished and clear, strong cough noted. Good po intake. She calls appropriately for assistance with inontinence frequently and for repositioning. MD at bedside evaluating patient clears her for discharge to [facility]. Report called to Leeroy. PICC dc'd. COVID test result from today negative. Pt is alea lifted to her wheelchair brought by facility designee and transported back to [facility] with all belongings and discharge packet at 1430.
--- NOTE | 2021-02-04 19:57 | P.DS_ITS ---
History of Present Illness History of Present Illness Chief complaint: Nausea/Vomiting Narrative: Per Dr. Mccoy: Ariana Causey is a 60-year-old female with past medical history of morbid obesity, type 2 diabetes with chronic foot wounds followed by wound care, peripheral vascular disease, prior CVA, probable COPD, and active smoker who presented to the emergency room. She was recently put on ?dalbavancin infusion instead of vancomycin on Wednesday. Patient follows with ID clinic. She presented with 2 days of nausea and vomiting. Denies hematechezia. She denies fever, chills or diarrhea. She has chronic constipation, last BM on wednesday which appeared normal for her. She denies diarrhea. Lives at [facility]. Medicine asked to see over concern for possible infectious source of her symptoms. Patient states her foot wounds and heel wounds are chronic, somewhat improving per her report. She denies chest pain, shortness of breath, or cough. Labs notable for a metabolic alkalosis, which appears to be chronic for her but slightly worsened. Has a mild leukocytosis at 23, but usually she is around 20 per prior labs. No other significant lab abnormalities. She had a PO trial in the ER, which she did not tolerate, was admitted for light hydration and continued monitoring. Denies family history of malignancy or rheumatological disease in her mother and father. Discharge Providers Provider Date of admission: 02/01/21 14:17 Discharge Date: 02/04/21 Primary care physician: JED Ventura FNP-C Consults: 01/31/21 14:57 Consult to Wound Care Stat Comment: Consulting Provider: [facility] 02/04/21 11:34 Consult to Home Health Routine Comment: Reason For Exam: Resume Home Health Nursing Discharge provider: Prashant Mattson MD Summary Hospital Course Discharge Diagnosis: 1. Nausea and vomiting 2. History of CVA 3. Leukocytosis 4. Type 2 DM on insulin 5. PVD 6. HTN 7. Chronic lower extremity diabetic ulcers Hospital Course: Ms. Causey was admitted with nausea and vomiting. She developed this within hours of receiving dalbavancin infusion for MRSA in her lower extremity wounds. It is possible this was the cause, or unrelated. She improved and was discharged with no abdominal symptoms. She was noted to have an elevated WBC, but this has been chronically elevated, and hematology referral should be considered. She did have chronic lower extremity wounds, with recent swab showing MRSA. Dalbavancin should be effective for 1-2 weeks per ID. Her ID physician, Dr. Green, was contacted and recommended holding all antibiotics for now, and she will need follow up in ID clinic. Discharge time 35 minutes Exam Vital Signs (past 8 hours): - 02/04/21 13:00 Pulse Oximetry 95 Oxygen Delivery Method Room Air Oxygen Flow Rate 0 Narrative Exam Narrative: GENERAL APPEARANCE: no acute distress LUNGS: clear bilaterallyi CARDIOVASCULAR: regular rate and rhythm, no murmurs ABDOMEN: Soft, nontender, and nondistended. Obese abdomen. MUSCULOSKELETAL: muscle strength equal bilaterally, weak chronically. No joint effusions. EXTREMITIES: No cyanosis, clubbing. Chronic bilateral diabetic foot ulcers with no surrounding induration, or tenderness. mild erythema of her R heel, but patient reports this is improved. NEUROLOGIC: Alert and oriented x 3. Normal affect. Objective Labs Result Diagrams: 02/04/21 05:36 02/04/21 05:36 Labs: Laboratory Results - last 24 hr 02/04/21 02/04/21 02/04/21 05:36 05:36 11:34 WBC 17.9 H RBC 3.90 L Hgb 10.0 L Hct 31.2 L MCV 80.2 MCH 25.6 L MCHC 31.9 RDW 17.1 H Plt Count 461 H Neut % (Auto) 71.3 Lymph % (Auto) 17.3 L [place] % (Auto) 7.5 Eos % (Auto) 3.4 Baso % (Auto) 0.5 Neut # (Auto) 80058 H Lymph # (Auto) 3100 [place] # (Auto) 1300 H Eos # (Auto) 600 H Baso # (Auto) 100 Sodium 137 Potassium 4.2 Chloride 102 Carbon Dioxide 29 BUN 11 Creatinine 0.51 L Estimated GFR > 60.0 BUN/Creatinine Ratio 21.6 Glucose 128 H Calcium 8.3 L Magnesium 1.9 Total Bilirubin 0.2 AST 17 ALT 13 Alkaline Phosphatase 104 Total Protein 6.3 Albumin 3.3 L Globulin 3.0 Albumin/Globulin Ratio 1.1 SARS-CoV-2 (PCR) Negative [facility] Medical History CHF (congestive heart failure) Diabetes Hyperlipidemia Hypertension Peripheral neuropathy PVD (peripheral vascular disease) TIA (transient ischemic attack) Surgical History (Updated 01/31/21 @ 19:49 by Rafael Mccoy DO) H/O angioplasty History of cholecystectomy Social History household members: caregiver Smoking Status: Current every day smoker alcohol intake: never Discharge Plan Discharge Plan Patient Disposition: Home Provider Discharge Comment: Ms. Causey came to the hospital with nausea and vomiting. This was possibly from a medication, dalbavancin, that she received an infusion recently for. It may have been a gastroenteritis as well. She improved. Initially there was thought she would need additional IV antibiotics, however, after discussion with her infectious disease physician they stated to keep her off antibiotics and have her follow up in ID clinic. Discharge orders & Medications Prescriptions: Continued acetaminophen [Tylenol Extra Strength] 500 MG tablet 1 - 2 tab PO PRN PRN (Reason: pain/ fever) Qty: 0 RF: 0 cyclobenzaprine 10 MG tablet 10 mg PO BID Qty: 0 RF: 0 furosemide 20 MG tablet 20 mg PO QDAY Qty: 0 RF: 0 atorvastatin 80 mg tablet 80 mg PO DAILY RF: 0 clopidogrel 75 mg tablet 75 mg PO DAILY RF: 0 pantoprazole 40 mg tablet,delayed release (DR/EC) 40 mg PO QAM RF: 0 losartan 25 mg tablet 25 mg PO DAILY RF: 0 zolpidem 10 mg tablet 10 mg PO QPM RF: 0 Lantus Solostar U-100 Insulin 100 unit/mL (3 mL) insulin pen 55 unit SUBCUT BID RF: 0 Victoza 3-Nicho 0.6 mg/0.1 mL (18 mg/3 mL) pen injector 1.8 mg SUBCUT QWEEK RF: 0 duloxetine [Cymbalta] 20 mg Capsule,Delayed Release(Dr/Ec) 20 mg PO DAILY Qty: 30 RF: 0 citalopram 40 mg tablet 40 mg PO DAILY Qty: 30 RF: 0 Medication counseling provided by Pharmacist: Yes Follow up/Referrals: Norma Bower MD [Non-Staff] - (chronic lower extremity wounds, recent MRSA wound swab positive, recent dalbavancin infusion) Loly Zambrano ARNP, VETERINARY SURGEON-C [Primary Care Provider] - Diet/Activity/Treatments Diet: Low-sodium Visit Report/Discharge Packet Instructions: DI for Heart Failure Discharge Data Primary Care Provider: Loly Zambrano
== END 2021-02-04 13:30 | disposition home health service (06) | DRG 392 ==
LOC: ED 13:09 → AC 17:28
PROVIDERS: Internal Medicine; Nurse Practitioner Family; Admitting Provider Internal Medicine; Emergency Provider Nurse Practitioner Critical Care Medicine; PCP Nurse Practitioner Family; Referring Provider Nurse Practitioner Critical Care Medicine; Visit Provider Internal Medicine
DX: R11.2 Nausea with vomiting, unspecified (principal); E87.3 Alkalosis; L97.421 Non-pressure chronic ulcer of left heel and midfoot limited to breakdown of skin; L97.411 Non-pressure chronic ulcer of right heel and midfoot limited to breakdown of skin; E11.621 Type 2 diabetes mellitus with foot ulcer; E11.51 Type 2 diabetes mellitus with diabetic peripheral angiopathy without gangrene; E11.42 Type 2 diabetes mellitus with diabetic polyneuropathy; E11.649 Type 2 diabetes mellitus with hypoglycemia without coma; I50.9 Heart failure, unspecified; I11.0 Hypertensive heart disease with heart failure; E66.01 Morbid (severe) obesity due to excess calories; Z68.36 Body mass index [BMI] 36.0-36.9, adult; Z79.4 Long term (current) use of insulin; B95.62 Methicillin resistant Staphylococcus aureus infection as the cause of diseases classified elsewhere; T36.8X5A Adverse effect of other systemic antibiotics, initial encounter; F17.200 Nicotine dependence, unspecified, uncomplicated; I73.9 Peripheral vascular disease, unspecified; D72.829 Elevated white blood cell count, unspecified; E78.5 Hyperlipidemia, unspecified; Z20.822 Contact with and (suspected) exposure to COVID-19; Z66 Do not resuscitate; Z86.73 Personal history of transient ischemic attack (TIA), and cerebral infarction without residual deficits
CPT/HCPCS: 36415; 36569; 36592; 71045; 73630; 80053; 82550; 82962; 83036; 83605; 83735; 83880; 85025; 85651; 86140; 87040; 87070; 87075; 87077; 87147; 87185; 87186; 87205; 87635; 94760; 96361; 96365; 96366; 96367; 96368; 96375; 99284; C9803; G0378; J0692; J1650; J1815; J2185; J2405; J2543

== ENCOUNTER → 2021-02-10 09:58 | Outpatient (CLI) | payer OTHER, MEDICAID, SELFPAY ==
[2021-01-31 19:05] VITALS: BMI 36.8
== END ==
PROVIDERS: PCP Nurse Practitioner Family; Referring Provider Nurse Practitioner Family; Visit Provider Family Medicine
DX: E11.621 Type 2 diabetes mellitus with foot ulcer (principal); L97.512 Non-pressure chronic ulcer of other part of right foot with fat layer exposed; L97.422 Non-pressure chronic ulcer of left heel and midfoot with fat layer exposed; L97.412 Non-pressure chronic ulcer of right heel and midfoot with fat layer exposed; I89.0 Lymphedema, not elsewhere classified; I87.2 Venous insufficiency (chronic) (peripheral); I70.293 Other atherosclerosis of native arteries of extremities, bilateral legs; R23.1 Pallor; D72.829 Elevated white blood cell count, unspecified; R60.0 Localized edema
CPT/HCPCS: 11042; 99214

== ENCOUNTER → 2021-02-24 09:54 | Outpatient (CLI) | payer OTHER, MEDICAID, SELFPAY ==
[2021-01-31 19:05] VITALS: BMI 36.8
== END ==
PROVIDERS: PCP Nurse Practitioner Family; Referring Provider Nurse Practitioner Family; Visit Provider Family Medicine
DX: E11.621 Type 2 diabetes mellitus with foot ulcer (principal); L97.412 Non-pressure chronic ulcer of right heel and midfoot with fat layer exposed; L97.512 Non-pressure chronic ulcer of other part of right foot with fat layer exposed; L97.422 Non-pressure chronic ulcer of left heel and midfoot with fat layer exposed; L97.522 Non-pressure chronic ulcer of other part of left foot with fat layer exposed; I89.0 Lymphedema, not elsewhere classified; I87.2 Venous insufficiency (chronic) (peripheral); I70.293 Other atherosclerosis of native arteries of extremities, bilateral legs; R23.1 Pallor; D72.829 Elevated white blood cell count, unspecified
CPT/HCPCS: 11042; 11045; 99214

== ENCOUNTER → 2021-03-14 12:25 | Outpatient (CLI) | payer OTHER, MEDICAID, SELFPAY ==
[2021-01-31 19:05] VITALS: BMI 36.8
[2021-03-14 13:02] LABS: Hemoglobin A1C% w Est Avg Glu 6.9 % (4.0-6.0)
[2021-03-14 13:23] LABS: HEMOLYSIS 18 (0-50); Total Iron Binding Capacity 329 ug/dL (265-497); Transferrin 246 mg/dL (206-381)
[2021-03-14 18:35] LABS: Iron 22 ug/dL (37-170); Percent Iron Saturation 7 % (15-50)
[2021-03-14 22:05] LABS: Ferritin 21 ng/mL (11-264)
== END ==
PROVIDERS: PCP Nurse Practitioner Family; Referring Provider Nurse Practitioner Family; Visit Provider Nurse Practitioner Family
DX: I50.9 Heart failure, unspecified (principal); E11.9 Type 2 diabetes mellitus without complications
CPT/HCPCS: 36415; 82728; 83036; 83540; 83550

== ENCOUNTER → 2021-03-20 11:18 | Outpatient (CLI) | payer OTHER, MEDICAID, SELFPAY ==
[2021-01-31 19:05] VITALS: BMI 36.8
== END ==
PROVIDERS: PCP Nurse Practitioner Family; Referring Provider Nurse Practitioner Family; Visit Provider Family Medicine
DX: E11.621 Type 2 diabetes mellitus with foot ulcer (principal); L97.512 Non-pressure chronic ulcer of other part of right foot with fat layer exposed; L97.412 Non-pressure chronic ulcer of right heel and midfoot with fat layer exposed; L97.422 Non-pressure chronic ulcer of left heel and midfoot with fat layer exposed; L97.522 Non-pressure chronic ulcer of other part of left foot with fat layer exposed; R60.0 Localized edema; E11.51 Type 2 diabetes mellitus with diabetic peripheral angiopathy without gangrene; E11.40 Type 2 diabetes mellitus with diabetic neuropathy, unspecified; E11.21 Type 2 diabetes mellitus with diabetic nephropathy; E66.01 Morbid (severe) obesity due to excess calories; D64.9 Anemia, unspecified; D75.839 Thrombocytosis, unspecified; D89.2 Hypergammaglobulinemia, unspecified; Z72.0 Tobacco use; Z68.36 Body mass index [BMI] 36.0-36.9, adult; Z79.4 Long term (current) use of insulin
CPT/HCPCS: 11042; 11045; 99213

== ENCOUNTER → 2021-03-20 12:38 | Outpatient (CLI) | payer OTHER, MEDICAID, SELFPAY ==
[2021-01-31 19:05] VITALS: BMI 36.8
== END ==
PROVIDERS: PCP Nurse Practitioner Family; Referring Provider Family Medicine; Visit Provider Family Medicine
DX: R23.1 Pallor (principal); D72.829 Elevated white blood cell count, unspecified; L97.512 Non-pressure chronic ulcer of other part of right foot with fat layer exposed
CPT/HCPCS: 36415; 82595

== ENCOUNTER → 2021-04-10 12:12 | Outpatient (CLI) | payer OTHER, MEDICAID, SELFPAY ==
[2021-01-31 19:05] VITALS: BMI 36.8
== END ==
PROVIDERS: PCP Nurse Practitioner Family; Referring Provider Internal Medicine; Visit Provider Family Medicine
DX: E11.621 Type 2 diabetes mellitus with foot ulcer (principal); L97.512 Non-pressure chronic ulcer of other part of right foot with fat layer exposed; L97.412 Non-pressure chronic ulcer of right heel and midfoot with fat layer exposed; L97.422 Non-pressure chronic ulcer of left heel and midfoot with fat layer exposed; L97.522 Non-pressure chronic ulcer of other part of left foot with fat layer exposed; L92.8 Other granulomatous disorders of the skin and subcutaneous tissue; R60.0 Localized edema; E11.51 Type 2 diabetes mellitus with diabetic peripheral angiopathy without gangrene; E11.21 Type 2 diabetes mellitus with diabetic nephropathy; E11.40 Type 2 diabetes mellitus with diabetic neuropathy, unspecified; E66.01 Morbid (severe) obesity due to excess calories; D72.829 Elevated white blood cell count, unspecified; D64.9 Anemia, unspecified; D75.839 Thrombocytosis, unspecified; Z72.0 Tobacco use; Z79.4 Long term (current) use of insulin; Z68.36 Body mass index [BMI] 36.0-36.9, adult
CPT/HCPCS: 11042; 11045; 99212

== ENCOUNTER → 2021-04-24 11:28 | Outpatient (CLI) | payer OTHER, MEDICAID, SELFPAY ==
[2021-01-31 19:05] VITALS: BMI 36.8
== END ==
PROVIDERS: PCP Nurse Practitioner Family; Referring Provider Nurse Practitioner Family; Visit Provider Family Medicine
DX: E11.621 Type 2 diabetes mellitus with foot ulcer (principal); L97.512 Non-pressure chronic ulcer of other part of right foot with fat layer exposed; L97.412 Non-pressure chronic ulcer of right heel and midfoot with fat layer exposed; L97.422 Non-pressure chronic ulcer of left heel and midfoot with fat layer exposed; L97.522 Non-pressure chronic ulcer of other part of left foot with fat layer exposed; L08.9 Local infection of the skin and subcutaneous tissue, unspecified; E11.51 Type 2 diabetes mellitus with diabetic peripheral angiopathy without gangrene; E11.40 Type 2 diabetes mellitus with diabetic neuropathy, unspecified; E11.21 Type 2 diabetes mellitus with diabetic nephropathy; E66.01 Morbid (severe) obesity due to excess calories; D72.829 Elevated white blood cell count, unspecified; D64.9 Anemia, unspecified; D75.839 Thrombocytosis, unspecified; Z72.0 Tobacco use; Z68.36 Body mass index [BMI] 36.0-36.9, adult; Z79.4 Long term (current) use of insulin
CPT/HCPCS: 11042; 11045; 87070; 87075; 87077; 87147; 87186; 87205; 99213

== ENCOUNTER → 2021-05-14 13:47 | Outpatient (CLI) | payer OTHER, MEDICAID, SELFPAY ==
[2021-01-31 19:05] VITALS: BMI 36.8
== END ==
PROVIDERS: PCP Nurse Practitioner Family; Referring Provider Nurse Practitioner Family; Visit Provider Family Medicine
DX: E11.621 Type 2 diabetes mellitus with foot ulcer (principal); L97.512 Non-pressure chronic ulcer of other part of right foot with fat layer exposed; L97.412 Non-pressure chronic ulcer of right heel and midfoot with fat layer exposed; L97.422 Non-pressure chronic ulcer of left heel and midfoot with fat layer exposed; L97.522 Non-pressure chronic ulcer of other part of left foot with fat layer exposed; R60.0 Localized edema; E11.51 Type 2 diabetes mellitus with diabetic peripheral angiopathy without gangrene; E11.40 Type 2 diabetes mellitus with diabetic neuropathy, unspecified; E11.21 Type 2 diabetes mellitus with diabetic nephropathy; E66.01 Morbid (severe) obesity due to excess calories; D72.829 Elevated white blood cell count, unspecified; D64.9 Anemia, unspecified; D75.839 Thrombocytosis, unspecified; Z22.322 Carrier or suspected carrier of Methicillin resistant Staphylococcus aureus; Z72.0 Tobacco use
CPT/HCPCS: 11042; 11045; 99213

== ENCOUNTER → 2021-06-11 10:24 | Outpatient (CLI) | payer OTHER, MEDICAID, SELFPAY ==
[2021-01-31 19:05] VITALS: BMI 36.8
== END ==
PROVIDERS: PCP Nurse Practitioner Family; Referring Provider Nurse Practitioner Family; Visit Provider Family Medicine
DX: E11.621 Type 2 diabetes mellitus with foot ulcer (principal); L97.422 Non-pressure chronic ulcer of left heel and midfoot with fat layer exposed; L97.512 Non-pressure chronic ulcer of other part of right foot with fat layer exposed; L97.412 Non-pressure chronic ulcer of right heel and midfoot with fat layer exposed; L97.522 Non-pressure chronic ulcer of other part of left foot with fat layer exposed; R60.0 Localized edema; E11.51 Type 2 diabetes mellitus with diabetic peripheral angiopathy without gangrene; E11.40 Type 2 diabetes mellitus with diabetic neuropathy, unspecified; E11.21 Type 2 diabetes mellitus with diabetic nephropathy; D72.829 Elevated white blood cell count, unspecified; D75.839 Thrombocytosis, unspecified; D64.9 Anemia, unspecified; E66.01 Morbid (severe) obesity due to excess calories; Z72.0 Tobacco use; Z68.37 Body mass index [BMI] 37.0-37.9, adult; Z22.322 Carrier or suspected carrier of Methicillin resistant Staphylococcus aureus; Z79.4 Long term (current) use of insulin
CPT/HCPCS: 11042; 11045; 99213

== ENCOUNTER → 2021-07-09 10:13 | Outpatient (CLI) | payer OTHER, MEDICAID, SELFPAY ==
[2021-01-31 19:05] VITALS: BMI 36.8
== END ==
PROVIDERS: PCP Nurse Practitioner Family; Referring Provider Nurse Practitioner Family; Visit Provider Family Medicine
DX: E11.621 Type 2 diabetes mellitus with foot ulcer (principal); L97.512 Non-pressure chronic ulcer of other part of right foot with fat layer exposed; L97.412 Non-pressure chronic ulcer of right heel and midfoot with fat layer exposed; L97.422 Non-pressure chronic ulcer of left heel and midfoot with fat layer exposed; L97.522 Non-pressure chronic ulcer of other part of left foot with fat layer exposed; L08.9 Local infection of the skin and subcutaneous tissue, unspecified; L92.8 Other granulomatous disorders of the skin and subcutaneous tissue; R60.0 Localized edema; E11.51 Type 2 diabetes mellitus with diabetic peripheral angiopathy without gangrene; E11.40 Type 2 diabetes mellitus with diabetic neuropathy, unspecified; E11.21 Type 2 diabetes mellitus with diabetic nephropathy; D72.829 Elevated white blood cell count, unspecified; D75.839 Thrombocytosis, unspecified; E66.01 Morbid (severe) obesity due to excess calories; Z22.322 Carrier or suspected carrier of Methicillin resistant Staphylococcus aureus; Z72.0 Tobacco use; Z68.38 Body mass index [BMI] 38.0-38.9, adult
CPT/HCPCS: 11042; 99213; 99214

== ENCOUNTER → 2021-08-13 15:11 | Outpatient (CLI) | payer OTHER, MEDICAID, SELFPAY ==
[2021-01-31 19:05] VITALS: BMI 36.8
== END ==
PROVIDERS: PCP Nurse Practitioner Family; Referring Provider Nurse Practitioner Family; Visit Provider Family Medicine
DX: E11.621 Type 2 diabetes mellitus with foot ulcer (principal); L97.512 Non-pressure chronic ulcer of other part of right foot with fat layer exposed; L97.412 Non-pressure chronic ulcer of right heel and midfoot with fat layer exposed; L97.422 Non-pressure chronic ulcer of left heel and midfoot with fat layer exposed; L97.521 Non-pressure chronic ulcer of other part of left foot limited to breakdown of skin; L08.9 Local infection of the skin and subcutaneous tissue, unspecified; E11.51 Type 2 diabetes mellitus with diabetic peripheral angiopathy without gangrene; E11.40 Type 2 diabetes mellitus with diabetic neuropathy, unspecified; E11.21 Type 2 diabetes mellitus with diabetic nephropathy; D72.828 Other elevated white blood cell count; D75.839 Thrombocytosis, unspecified; D64.9 Anemia, unspecified; E66.01 Morbid (severe) obesity due to excess calories; Z68.38 Body mass index [BMI] 38.0-38.9, adult; Z22.322 Carrier or suspected carrier of Methicillin resistant Staphylococcus aureus; Z72.0 Tobacco use
CPT/HCPCS: 11042; 99213

== ENCOUNTER → 2021-08-20 12:09 | Outpatient (CLI) | payer OTHER, MEDICAID, SELFPAY ==
[2021-01-31 19:05] VITALS: BMI 36.8
[2021-08-20 14:34] LABS: Add Manual Diff / Slide Review NO; Basophils Absolute Auto 100 /uL (0-100); Basophils Percent Auto 0.6 % (0-2); Eosinophils Absolute Auto 400 /uL (0-450); Eosinophils Percent Auto 2.6 % (2-4); Hematocrit 34.2 % (36-46); Hemoglobin 11.2 g/dL (12.0-16.0); Lymphocytes Absolute Auto 3100 /uL (1100-4500); Lymphocytes Percent Auto 18.1 % (25-40); Mean Corpuscular HGB Conc 32.9 % (30-36); Mean Corpuscular Hemoglobin 24.5 PG (26-34); Mean Corpuscular Volume 74.5 fL (80-100); Monocytes Absolute Auto 1200 /uL (0-900); Monocytes Percent Auto 6.8 % (3-14); Neutrophils Absolute Auto 12400 /uL (1500-7000); Neutrophils Percent Auto 71.9 % (50-75); Platelet Count 460 X10^3/uL (150-400); Red Blood Cell Count 4.59 X10^6/uL (4.0-5.2); Red Cell Distribution Width 16.6 % (11.6-14.8); White Blood Cell Count 17.2 X10^3/uL (4.5-11.0)
[2021-08-20 14:42] LABS: Hemoglobin A1C% w Est Avg Glu 8.2 % (4.0-6.0)
[2021-08-20 16:15] LABS: Alanine Aminotransferase 19 IU/L (<35); Albumin 3.9 g/dL (3.5-5.0); Albumin Globulin Ratio 1.1 (1.0-2.8); Alkaline Phosphatase 154 U/L (38-126); Aspartate Aminotransferase 22 IU/L (14-36); BUN Creatinine Ratio 24.1 (6-22); Bilirubin Total 0.4 mg/dL (0.2-1.3); Blood Urea Nitrogen 14 mg/dL (7-17); Calcium 8.8 mg/dL (8.4-10.2); Carbon Dioxide 29 mmol/L (22-32); Chloride 98 mmol/L (98-107); Estimated Glomerular Filt Rate > 60 mL/min (>60); Globulin 3.4 g/dL (1.7-4.1); Glucose 203 mg/dL (80-110); HEMOLYSIS < 15 (0-50); Potassium 4.6 mmol/L (3.4-5.1); Sodium 137 mmol/L (137-145); Total Protein 7.3 g/dL (6.3-8.2)
== END ==
PROVIDERS: PCP Nurse Practitioner Family; Referring Provider Nurse Practitioner Family; Visit Provider Nurse Practitioner Family
DX: E11.40 Type 2 diabetes mellitus with diabetic neuropathy, unspecified (principal); E78.5 Hyperlipidemia, unspecified
CPT/HCPCS: 36415; 80053; 83036; 85025

== ENCOUNTER → 2021-09-24 15:27 | Outpatient (CLI) | payer OTHER, MEDICAID, SELFPAY ==
[2021-01-31 19:05] VITALS: BMI 36.8
== END ==
PROVIDERS: PCP Nurse Practitioner Family; Referring Provider Internal Medicine; Visit Provider Family Medicine
DX: E11.621 Type 2 diabetes mellitus with foot ulcer (principal); L97.512 Non-pressure chronic ulcer of other part of right foot with fat layer exposed; L97.412 Non-pressure chronic ulcer of right heel and midfoot with fat layer exposed; L08.9 Local infection of the skin and subcutaneous tissue, unspecified; E11.51 Type 2 diabetes mellitus with diabetic peripheral angiopathy without gangrene; E11.40 Type 2 diabetes mellitus with diabetic neuropathy, unspecified; E11.21 Type 2 diabetes mellitus with diabetic nephropathy; D72.828 Other elevated white blood cell count; D75.839 Thrombocytosis, unspecified; D64.9 Anemia, unspecified; E66.01 Morbid (severe) obesity due to excess calories; Z68.38 Body mass index [BMI] 38.0-38.9, adult; Z22.322 Carrier or suspected carrier of Methicillin resistant Staphylococcus aureus; Z72.0 Tobacco use
CPT/HCPCS: 11042; 99212

== ENCOUNTER → 2021-10-10 15:37 | Outpatient (CLI) | payer OTHER, MEDICAID, SELFPAY ==
[2021-01-31 19:05] VITALS: BMI 36.8
--- NOTE | 2021-10-10 15:40 | DI.RAD.S_ITS ---
PROCEDURE: XR KNEE RT 1TO2V INDICATIONS: RT KNEE PAIN TECHNIQUE: 3 views of the knee were acquired. COMPARISON: None. FINDINGS: Bones: Generalized decrease in osseous mineralization noted. Severe medial and lateral joint space narrowing. Soft tissues: Distal SFA vascular stent noted in place. Small joint effusion IMPRESSION: Osteoarthritis without marginal osteophyte SFA vascular stent in place Approved by: Shiva Padgett M.D. on 10/10/2021 at 17:05
== END ==
PROVIDERS: PCP Nurse Practitioner Family; Referring Provider Nurse Practitioner Family; Visit Provider Nurse Practitioner Family
DX: S80.911A Unspecified superficial injury of right knee, initial encounter (principal); M25.561 Pain in right knee; M17.11 Unilateral primary osteoarthritis, right knee; X58.XXXA Exposure to other specified factors, initial encounter
CPT/HCPCS: 73560

== ENCOUNTER → 2021-10-29 15:02 | Outpatient (CLI) | payer OTHER, MEDICAID, SELFPAY ==
[2021-01-31 19:05] VITALS: BMI 36.8
== END ==
PROVIDERS: PCP Nurse Practitioner Family; Referring Provider Nurse Practitioner Family; Visit Provider Family Medicine
DX: E11.621 Type 2 diabetes mellitus with foot ulcer (principal); L97.412 Non-pressure chronic ulcer of right heel and midfoot with fat layer exposed; L97.522 Non-pressure chronic ulcer of other part of left foot with fat layer exposed; R60.0 Localized edema; L85.3 Xerosis cutis
CPT/HCPCS: 97602

== ENCOUNTER → 2021-11-26 11:43 | Outpatient (CLI) | payer OTHER, MEDICAID, SELFPAY ==
[2021-01-31 19:05] VITALS: BMI 36.8
[2021-11-26 14:05] LABS: Hemoglobin A1C% w Est Avg Glu 8.3 % (4.0-6.0)
[2021-11-26 14:23] LABS: Blood Urea Nitrogen 12 mg/dL (7-17); Calcium 8.8 mg/dL (8.4-10.2); Carbon Dioxide 34 mmol/L (22-32); Chloride 97 mmol/L (98-107); Estimated Glomerular Filt Rate > 60 mL/min (>60); Glucose 204 mg/dL (80-110); HEMOLYSIS < 15 (0-50); Potassium 3.9 mmol/L (3.4-5.1); Sodium 139 mmol/L (137-145)
== END ==
PROVIDERS: PCP Nurse Practitioner Family; Referring Provider Registered Nurse; Visit Provider Registered Nurse
DX: E11.40 Type 2 diabetes mellitus with diabetic neuropathy, unspecified (principal); E78.5 Hyperlipidemia, unspecified
CPT/HCPCS: 36415; 80048; 83036

== ENCOUNTER → 2021-11-26 13:49 | Outpatient (CLI) | payer OTHER, MEDICAID, SELFPAY ==
[2021-01-31 19:05] VITALS: BMI 36.8
== END ==
PROVIDERS: PCP Nurse Practitioner Family; Referring Provider Internal Medicine; Visit Provider Family Medicine
DX: E11.621 Type 2 diabetes mellitus with foot ulcer (principal); I87.2 Venous insufficiency (chronic) (peripheral); L97.512 Non-pressure chronic ulcer of other part of right foot with fat layer exposed; L97.412 Non-pressure chronic ulcer of right heel and midfoot with fat layer exposed; E11.40 Type 2 diabetes mellitus with diabetic neuropathy, unspecified; E11.51 Type 2 diabetes mellitus with diabetic peripheral angiopathy without gangrene; Z22.322 Carrier or suspected carrier of Methicillin resistant Staphylococcus aureus; F17.210 Nicotine dependence, cigarettes, uncomplicated; E78.5 Hyperlipidemia, unspecified
CPT/HCPCS: 11042; 36415; 80048; 83036; 99212

== ENCOUNTER → 2021-12-11 08:51 | Outpatient (CLI) | payer OTHER, MEDICAID, SELFPAY ==
[2021-01-31 19:05] VITALS: BMI 36.8
== END ==
PROVIDERS: PCP Nurse Practitioner Family; Referring Provider Nurse Practitioner Family; Visit Provider Family Medicine
DX: E11.621 Type 2 diabetes mellitus with foot ulcer (principal); L97.512 Non-pressure chronic ulcer of other part of right foot with fat layer exposed; L97.412 Non-pressure chronic ulcer of right heel and midfoot with fat layer exposed; I70.293 Other atherosclerosis of native arteries of extremities, bilateral legs; E11.51 Type 2 diabetes mellitus with diabetic peripheral angiopathy without gangrene; E11.40 Type 2 diabetes mellitus with diabetic neuropathy, unspecified; M79.671 Pain in right foot
CPT/HCPCS: 11042

== ENCOUNTER → 2022-01-01 15:08 | Outpatient (CLI) | payer OTHER, MEDICAID, SELFPAY ==
[2021-01-31 19:05] VITALS: BMI 36.8
== END ==
PROVIDERS: PCP Nurse Practitioner Family; Referring Provider Nurse Practitioner Family; Visit Provider Family Medicine
DX: E11.621 Type 2 diabetes mellitus with foot ulcer (principal); I89.0 Lymphedema, not elsewhere classified; I87.2 Venous insufficiency (chronic) (peripheral); L97.512 Non-pressure chronic ulcer of other part of right foot with fat layer exposed; L97.412 Non-pressure chronic ulcer of right heel and midfoot with fat layer exposed; E11.40 Type 2 diabetes mellitus with diabetic neuropathy, unspecified; E11.51 Type 2 diabetes mellitus with diabetic peripheral angiopathy without gangrene; Z99.3 Dependence on wheelchair; F17.210 Nicotine dependence, cigarettes, uncomplicated
CPT/HCPCS: 11042; 99212

== ENCOUNTER → 2022-01-26 11:06 | Outpatient (CLI) | payer OTHER, MEDICAID, SELFPAY ==
[2021-01-31 19:05] VITALS: BMI 36.8
== END ==
PROVIDERS: PCP Nurse Practitioner Family; Referring Provider Nurse Practitioner Family; Visit Provider Family Medicine
DX: E11.621 Type 2 diabetes mellitus with foot ulcer (principal); I87.2 Venous insufficiency (chronic) (peripheral); L97.412 Non-pressure chronic ulcer of right heel and midfoot with fat layer exposed; L97.512 Non-pressure chronic ulcer of other part of right foot with fat layer exposed; E11.40 Type 2 diabetes mellitus with diabetic neuropathy, unspecified; I70.293 Other atherosclerosis of native arteries of extremities, bilateral legs; E11.51 Type 2 diabetes mellitus with diabetic peripheral angiopathy without gangrene; F17.210 Nicotine dependence, cigarettes, uncomplicated; Z22.322 Carrier or suspected carrier of Methicillin resistant Staphylococcus aureus
CPT/HCPCS: 11042; 99212

== ENCOUNTER → 2022-02-16 10:47 | Outpatient (CLI) | payer OTHER, MEDICAID, SELFPAY ==
[2021-01-31 19:05] VITALS: BMI 36.8
== END ==
PROVIDERS: PCP Nurse Practitioner Family; Referring Provider Nurse Practitioner Family; Visit Provider Family Medicine
DX: E11.621 Type 2 diabetes mellitus with foot ulcer (principal); L97.512 Non-pressure chronic ulcer of other part of right foot with fat layer exposed; L97.412 Non-pressure chronic ulcer of right heel and midfoot with fat layer exposed; L97.522 Non-pressure chronic ulcer of other part of left foot with fat layer exposed; E11.40 Type 2 diabetes mellitus with diabetic neuropathy, unspecified; Z72.0 Tobacco use; M79.671 Pain in right foot; Z99.3 Dependence on wheelchair; D47.1 Chronic myeloproliferative disease
CPT/HCPCS: 11042; 97597; 99212

== ENCOUNTER → 2022-03-04 06:18 | Outpatient (ROUT) | payer OTHER, MEDICAID, SELFPAY ==
[2021-01-31 19:05] VITALS: BMI 36.8
== END ==
PROVIDERS: PCP Nurse Practitioner Family; Visit Provider Nurse Practitioner Family
DX: E11.40 Type 2 diabetes mellitus with diabetic neuropathy, unspecified (principal); E78.5 Hyperlipidemia, unspecified
CPT/HCPCS: 36415

== ENCOUNTER → 2022-03-09 10:30 | Outpatient (CLI) | payer OTHER, MEDICAID, SELFPAY ==
[2021-01-31 19:05] VITALS: BMI 36.8
== END ==
PROVIDERS: PCP Nurse Practitioner Family; Referring Provider Nurse Practitioner Family; Visit Provider Surgery
DX: E11.621 Type 2 diabetes mellitus with foot ulcer (principal); I87.2 Venous insufficiency (chronic) (peripheral); L97.512 Non-pressure chronic ulcer of other part of right foot with fat layer exposed; L97.412 Non-pressure chronic ulcer of right heel and midfoot with fat layer exposed; L97.522 Non-pressure chronic ulcer of other part of left foot with fat layer exposed
CPT/HCPCS: 11042; 36415; 83036

== ENCOUNTER → 2022-03-09 12:14 | Outpatient (CLI) | payer OTHER, MEDICAID, SELFPAY ==
[2021-01-31 19:05] VITALS: BMI 36.8
[2022-03-10 18:02] LABS: Hemoglobin A1C% w Est Avg Glu 10.6 % (4.0-6.0)
== END ==
PROVIDERS: PCP Nurse Practitioner Family; Referring Provider Surgery; Visit Provider Surgery
DX: E11.621 Type 2 diabetes mellitus with foot ulcer (principal)
CPT/HCPCS: 36415; 83036

== ENCOUNTER → 2022-04-01 14:02 | Outpatient (CLI) | payer OTHER, MEDICAID, SELFPAY ==
[2021-01-31 19:05] VITALS: BMI 36.8
== END ==
PROVIDERS: PCP Nurse Practitioner Family; Referring Provider Nurse Practitioner Family; Visit Provider Surgery
DX: E11.621 Type 2 diabetes mellitus with foot ulcer (principal); L97.512 Non-pressure chronic ulcer of other part of right foot with fat layer exposed; L97.412 Non-pressure chronic ulcer of right heel and midfoot with fat layer exposed; L97.522 Non-pressure chronic ulcer of other part of left foot with fat layer exposed; E11.40 Type 2 diabetes mellitus with diabetic neuropathy, unspecified; Z99.3 Dependence on wheelchair; F17.210 Nicotine dependence, cigarettes, uncomplicated
CPT/HCPCS: 11042; 99212; 99213

== ENCOUNTER → 2022-04-07 09:11 | Outpatient (CLI) | payer OTHER, MEDICAID, SELFPAY ==
[2021-01-31 19:05] VITALS: BMI 36.8
== END ==
PROVIDERS: PCP Nurse Practitioner Family; Visit Provider Surgery
DX: E11.621 Type 2 diabetes mellitus with foot ulcer (principal); I89.0 Lymphedema, not elsewhere classified; I87.2 Venous insufficiency (chronic) (peripheral); L97.412 Non-pressure chronic ulcer of right heel and midfoot with fat layer exposed; L97.512 Non-pressure chronic ulcer of other part of right foot with fat layer exposed; E11.40 Type 2 diabetes mellitus with diabetic neuropathy, unspecified; Z99.3 Dependence on wheelchair
CPT/HCPCS: 99213; 99214

== ENCOUNTER → 2022-04-14 13:54 | Outpatient (CLI) | payer OTHER, MEDICAID, SELFPAY ==
[2021-01-31 19:05] VITALS: BMI 36.8
--- NOTE | 2022-04-14 13:56 | DI.RAD.S_ITS ---
PROCEDURE: XR CHEST 2V INDICATIONS: Chest pain/ SOB TECHNIQUE: 2 views of the chest were acquired. COMPARISON: None. FINDINGS: Surgical changes and devices: None. Lungs and pleura: Lungs are clear. No pleural effusions or pneumothorax. Mediastinum: Mediastinal contours are normal. Heart is enlarged. Bones and chest wall: No suspicious bony abnormalities. Soft tissues appear unremarkable. IMPRESSION: No acute cardiopulmonary disease process. Dictated by: Gema Sotelo MD, PhD on 04/14/2022 at 15:02 Approved by: Gema Sotelo MD, PhD on 04/14/2022 at 15:02
[2022-04-14 14:33] LABS: Add Manual Diff / Slide Review NO; Basophils Absolute Auto 100 /uL (0-100); Basophils Percent Auto 0.7 % (0-2); Eosinophils Absolute Auto 500 /uL (0-450); Eosinophils Percent Auto 2.7 % (2-4); Hematocrit 36.5 % (36-46); Hemoglobin 11.2 g/dL (12.0-16.0); Lymphocytes Absolute Auto 2600 /uL (1100-4500); Lymphocytes Percent Auto 13.2 % (25-40); Mean Corpuscular HGB Conc 30.6 % (30-36); Mean Corpuscular Hemoglobin 23.5 PG (26-34); Mean Corpuscular Volume 76.6 fL (80-100); Monocytes Absolute Auto 1500 /uL (0-900); Monocytes Percent Auto 7.8 % (3-14); Neutrophils Absolute Auto 14800 /uL (1500-7000); Neutrophils Percent Auto 75.6 % (50-75); Platelet Count 491 X10^3/uL (150-400); Red Blood Cell Count 4.76 X10^6/uL (4.0-5.2); Red Cell Distribution Width 16.3 % (11.6-14.8); White Blood Cell Count 19.6 X10^3/uL (4.5-11.0)
[2022-04-14 14:51] LABS: Alanine Aminotransferase 24 IU/L (<35); Albumin 3.8 g/dL (3.5-5.0); Albumin Globulin Ratio 1.1 (1.0-2.8); Alkaline Phosphatase 162 U/L (38-126); Aspartate Aminotransferase 29 IU/L (14-36); BUN Creatinine Ratio 28.6 (6-22); Bilirubin Total 0.3 mg/dL (0.2-1.3); Blood Urea Nitrogen 16 mg/dL (7-17); Carbon Dioxide 33 mmol/L (22-32); Chloride 92 mmol/L (98-107); Estimated Glomerular Filt Rate > 60 mL/min (>60); Globulin 3.4 g/dL (1.7-4.1); Glucose 337 mg/dL (80-110); HEMOLYSIS < 15 (0-50); Potassium 4.7 mmol/L (3.4-5.1); Sodium 137 mmol/L (137-145); Total Protein 7.2 g/dL (6.3-8.2)
== END ==
PROVIDERS: PCP Nurse Practitioner Family; Referring Provider Nurse Practitioner Family; Visit Provider Nurse Practitioner Family
DX: R06.02 Shortness of breath (principal); R07.9 Chest pain, unspecified; E11.9 Type 2 diabetes mellitus without complications
CPT/HCPCS: 36415; 71046; 80053; 85025

== ENCOUNTER → 2022-04-21 09:14 | Outpatient (CLI) | payer OTHER, MEDICAID, SELFPAY ==
[2021-01-31 19:05] VITALS: BMI 36.8
== END ==
PROVIDERS: PCP Nurse Practitioner Family; Visit Provider Surgery
DX: E11.621 Type 2 diabetes mellitus with foot ulcer (principal); L97.512 Non-pressure chronic ulcer of other part of right foot with fat layer exposed; L97.412 Non-pressure chronic ulcer of right heel and midfoot with fat layer exposed; E11.40 Type 2 diabetes mellitus with diabetic neuropathy, unspecified; Z99.3 Dependence on wheelchair
CPT/HCPCS: 11042

== ENCOUNTER → 2022-05-12 10:15 | Outpatient (CLI) | payer OTHER, MEDICAID, SELFPAY ==
[2021-01-31 19:05] VITALS: BMI 36.8
== END ==
PROVIDERS: PCP Nurse Practitioner Family; Referring Provider Nurse Practitioner Family; Visit Provider Surgery
DX: E11.621 Type 2 diabetes mellitus with foot ulcer (principal); I89.0 Lymphedema, not elsewhere classified; I87.2 Venous insufficiency (chronic) (peripheral); L97.512 Non-pressure chronic ulcer of other part of right foot with fat layer exposed; L97.412 Non-pressure chronic ulcer of right heel and midfoot with fat layer exposed; Z22.322 Carrier or suspected carrier of Methicillin resistant Staphylococcus aureus; E11.40 Type 2 diabetes mellitus with diabetic neuropathy, unspecified; L89.626 Pressure-induced deep tissue damage of left heel; L84 Corns and callosities
CPT/HCPCS: 11042; 11045; 99212; 99214

== ENCOUNTER → 2022-05-19 09:33 | Outpatient (CLI) | payer OTHER, MEDICAID, SELFPAY ==
[2021-01-31 19:05] VITALS: BMI 36.8
== END ==
PROVIDERS: PCP Nurse Practitioner Family; Referring Provider Nurse Practitioner Family; Visit Provider Surgery
DX: E11.621 Type 2 diabetes mellitus with foot ulcer (principal); I89.0 Lymphedema, not elsewhere classified; I87.2 Venous insufficiency (chronic) (peripheral); L97.412 Non-pressure chronic ulcer of right heel and midfoot with fat layer exposed; L97.512 Non-pressure chronic ulcer of other part of right foot with fat layer exposed; I70.293 Other atherosclerosis of native arteries of extremities, bilateral legs; R23.1 Pallor; D72.829 Elevated white blood cell count, unspecified; Z22.322 Carrier or suspected carrier of Methicillin resistant Staphylococcus aureus
CPT/HCPCS: 11042; 11045; 97597; 99212

== ENCOUNTER → 2022-05-26 10:04 | Outpatient (CLI) | payer OTHER, MEDICAID, SELFPAY ==
[2021-01-31 19:05] VITALS: BMI 36.8
== END ==
PROVIDERS: PCP Nurse Practitioner Family; Referring Provider Nurse Practitioner Family; Visit Provider Surgery
DX: E11.621 Type 2 diabetes mellitus with foot ulcer (principal); L97.512 Non-pressure chronic ulcer of other part of right foot with fat layer exposed; L97.412 Non-pressure chronic ulcer of right heel and midfoot with fat layer exposed; L89.620 Pressure ulcer of left heel, unstageable; Z22.322 Carrier or suspected carrier of Methicillin resistant Staphylococcus aureus; E11.40 Type 2 diabetes mellitus with diabetic neuropathy, unspecified; I73.9 Peripheral vascular disease, unspecified; Z99.3 Dependence on wheelchair; F17.210 Nicotine dependence, cigarettes, uncomplicated; E11.628 Type 2 diabetes mellitus with other skin complications
CPT/HCPCS: 11042; 11045; 97597

== ENCOUNTER → 2022-06-03 14:52 | Outpatient (CLI) | payer OTHER, MEDICAID, SELFPAY ==
[2021-01-31 19:05] VITALS: BMI 36.8
--- NOTE | 2022-06-03 14:54 | DI.US.S_ITS ---
PROCEDURE: US ARTERIAL DUPLEX LE BI INDICATIONS: NON HEALING ULCERS BILATERAL LOWER EXTREMITIES TECHNIQUE: Color and pulse Doppler interrogation was performed of both lower extremity arterial systems, with image documentation. COMPARISON: [facility], , ARTERIAL LOW.EXTREMITY UNILAT., 04/06/2017, 10:40. FINDINGS: Right lower extremity: Common femoral artery: 168 cm/sec, with by phase flow. Deep femoral artery: 174 cm/sec, with biphasic flow. Proximal superficial femoral artery: 159 cm/sec, with try for flow. Mid superficial femoral artery: 341 cm/sec, with monophasic flow. Distal superficial femoral artery: 110 cm/sec, with monophasic flow. Popliteal artery: 51 cm/sec, with aphasic flow. Posterior tibial artery: 32 cm/sec, with monophasic flow. Anterior tibial artery/dorsalis pedis: 8 cm/sec, with monophasic flow. Vang-scale imaging description: Moderate diffuse plaque Left lower extremity: Common femoral artery: 316 cm/sec, with biphasic flow. Deep femoral artery: 130 cm/sec, with monophasic flow. Proximal superficial femoral artery: 366 cm/sec, with monophasic flow. Mid superficial femoral artery: 166 cm/sec, with biphasic flow. Distal superficial femoral artery: Not well seen Popliteal artery: 52 cm/sec, with monophasic flow. Posterior tibial artery: 56 cm/sec, with monophasic flow. Anterior tibial artery/dorsalis pedis: 32 cm/sec, with monophasic flow. Vang-scale imaging description: Moderate diffuse plaque IMPRESSION: 1. Hemodynamically significant bilateral outflow stenoses. 2. Initial further assessment with MR angiography runoff evaluation is recommended. Dictated by: Reed Osuna M.D. on 06/04/2022 at 12:49 Transcribed by: JOSE LUIS on 06/04/2022 at 12:52 Approved by: Reed Osuna M.D. on 06/04/2022 at 15:49
== END ==
PROVIDERS: PCP Nurse Practitioner Family; Referring Provider Surgery; Visit Provider Surgery
DX: E11.621 Type 2 diabetes mellitus with foot ulcer (principal); L97.519 Non-pressure chronic ulcer of other part of right foot with unspecified severity; L97.529 Non-pressure chronic ulcer of other part of left foot with unspecified severity
CPT/HCPCS: 93925

== ENCOUNTER → 2022-06-09 10:40 | Outpatient (CLI) | payer OTHER, MEDICAID, SELFPAY ==
[2021-01-31 19:05] VITALS: BMI 36.8
== END ==
PROVIDERS: PCP Nurse Practitioner Family; Referring Provider Registered Nurse; Visit Provider Surgery
DX: E11.621 Type 2 diabetes mellitus with foot ulcer (principal); I89.0 Lymphedema, not elsewhere classified; I87.2 Venous insufficiency (chronic) (peripheral); L97.412 Non-pressure chronic ulcer of right heel and midfoot with fat layer exposed; L97.512 Non-pressure chronic ulcer of other part of right foot with fat layer exposed; I70.293 Other atherosclerosis of native arteries of extremities, bilateral legs; R23.1 Pallor; D72.829 Elevated white blood cell count, unspecified; Z22.322 Carrier or suspected carrier of Methicillin resistant Staphylococcus aureus
CPT/HCPCS: 11042; 11045; 99212; 99213

== ENCOUNTER → 2022-06-23 09:54 | Outpatient (CLI) | payer OTHER, MEDICAID, SELFPAY ==
[2021-01-31 19:05] VITALS: BMI 36.8
== END ==
PROVIDERS: PCP Nurse Practitioner Family; Visit Provider Surgery
DX: E11.621 Type 2 diabetes mellitus with foot ulcer (principal); L97.511 Non-pressure chronic ulcer of other part of right foot limited to breakdown of skin; L97.411 Non-pressure chronic ulcer of right heel and midfoot limited to breakdown of skin; L89.620 Pressure ulcer of left heel, unstageable; L97.412 Non-pressure chronic ulcer of right heel and midfoot with fat layer exposed; I70.293 Other atherosclerosis of native arteries of extremities, bilateral legs; E11.40 Type 2 diabetes mellitus with diabetic neuropathy, unspecified; I73.9 Peripheral vascular disease, unspecified; R60.0 Localized edema; L53.9 Erythematous condition, unspecified
CPT/HCPCS: 11042; 97597

== ENCOUNTER → 2022-06-30 09:58 | Outpatient (CLI) | payer OTHER, MEDICAID, SELFPAY ==
[2021-01-31 19:05] VITALS: BMI 36.8
== END ==
PROVIDERS: PCP Nurse Practitioner Family; Visit Provider Surgery
DX: E11.621 Type 2 diabetes mellitus with foot ulcer (principal); I89.0 Lymphedema, not elsewhere classified; I87.2 Venous insufficiency (chronic) (peripheral); L97.512 Non-pressure chronic ulcer of other part of right foot with fat layer exposed; L97.412 Non-pressure chronic ulcer of right heel and midfoot with fat layer exposed; L89.620 Pressure ulcer of left heel, unstageable; I70.293 Other atherosclerosis of native arteries of extremities, bilateral legs; R23.1 Pallor; Z22.322 Carrier or suspected carrier of Methicillin resistant Staphylococcus aureus
CPT/HCPCS: 11042; 11045

== ENCOUNTER → 2022-07-15 10:02 | Outpatient (CLI) | payer OTHER, MEDICAID, SELFPAY ==
[2021-01-31 19:05] VITALS: BMI 36.8
== END ==
PROVIDERS: PCP Nurse Practitioner Family; Referring Provider Nurse Practitioner Family; Visit Provider Surgery
DX: E11.621 Type 2 diabetes mellitus with foot ulcer (principal); I89.0 Lymphedema, not elsewhere classified; I87.2 Venous insufficiency (chronic) (peripheral); L97.412 Non-pressure chronic ulcer of right heel and midfoot with fat layer exposed; L97.512 Non-pressure chronic ulcer of other part of right foot with fat layer exposed; I70.293 Other atherosclerosis of native arteries of extremities, bilateral legs; R23.1 Pallor; D72.829 Elevated white blood cell count, unspecified; Z22.322 Carrier or suspected carrier of Methicillin resistant Staphylococcus aureus; L97.422 Non-pressure chronic ulcer of left heel and midfoot with fat layer exposed
CPT/HCPCS: 11042; 11045; 99213

== ENCOUNTER → 2022-08-05 14:36 | Outpatient (CLI) | payer OTHER, MEDICAID, SELFPAY ==
[2021-01-31 19:05] VITALS: BMI 36.8
== END ==
PROVIDERS: PCP Nurse Practitioner Family; Referring Provider Nurse Practitioner Family; Visit Provider Surgery
DX: E11.621 Type 2 diabetes mellitus with foot ulcer (principal); L97.512 Non-pressure chronic ulcer of other part of right foot with fat layer exposed; L97.412 Non-pressure chronic ulcer of right heel and midfoot with fat layer exposed; L89.620 Pressure ulcer of left heel, unstageable; E11.40 Type 2 diabetes mellitus with diabetic neuropathy, unspecified; F17.210 Nicotine dependence, cigarettes, uncomplicated; E11.628 Type 2 diabetes mellitus with other skin complications
CPT/HCPCS: 11042; 11045

== ENCOUNTER → 2022-08-19 10:54 | Outpatient (CLI) | payer OTHER, MEDICAID, SELFPAY ==
[2021-01-31 19:05] VITALS: BMI 36.8
== END ==
PROVIDERS: PCP Nurse Practitioner Family; Referring Provider Registered Nurse; Visit Provider Surgery
DX: E11.621 Type 2 diabetes mellitus with foot ulcer (principal); I70.293 Other atherosclerosis of native arteries of extremities, bilateral legs; I89.0 Lymphedema, not elsewhere classified; I87.2 Venous insufficiency (chronic) (peripheral); L97.512 Non-pressure chronic ulcer of other part of right foot with fat layer exposed; L97.412 Non-pressure chronic ulcer of right heel and midfoot with fat layer exposed; L89.620 Pressure ulcer of left heel, unstageable; R23.1 Pallor; Z99.3 Dependence on wheelchair; R60.0 Localized edema
CPT/HCPCS: 11042; 11045; 99212; 99213

== ENCOUNTER → 2022-09-02 09:48 | Outpatient (CLI) | payer OTHER, MEDICAID, SELFPAY ==
[2021-01-31 19:05] VITALS: BMI 36.8
== END ==
PROVIDERS: PCP Nurse Practitioner Family; Referring Provider Registered Nurse; Visit Provider Surgery
DX: E11.621 Type 2 diabetes mellitus with foot ulcer (principal); E11.628 Type 2 diabetes mellitus with other skin complications; L97.512 Non-pressure chronic ulcer of other part of right foot with fat layer exposed; L97.412 Non-pressure chronic ulcer of right heel and midfoot with fat layer exposed; L89.620 Pressure ulcer of left heel, unstageable; R60.0 Localized edema; L53.9 Erythematous condition, unspecified
CPT/HCPCS: 11042

== ENCOUNTER → 2022-09-10 11:21 | Outpatient (CLI) | payer OTHER, MEDICAID, SELFPAY ==
[2021-01-31 19:05] VITALS: BMI 36.8
[2022-09-10 12:01] LABS: Add Manual Diff / Slide Review NO; Basophils Absolute Auto 300 /uL (0-100); Basophils Percent Auto 1.4 % (0-2); Eosinophils Absolute Auto 400 /uL (0-450); Eosinophils Percent Auto 2.2 % (2-4); Hematocrit 32.3 % (36-46); Hemoglobin 9.5 g/dL (12.0-16.0); Lymphocytes Absolute Auto 2500 /uL (1100-4500); Lymphocytes Percent Auto 13.4 % (25-40); Mean Corpuscular HGB Conc 29.5 % (30-36); Mean Corpuscular Volume 64.5 fL (80-100); Monocytes Absolute Auto 1600 /uL (0-900); Monocytes Percent Auto 8.5 % (3-14); Neutrophils Absolute Auto 14000 /uL (1500-7000); Neutrophils Percent Auto 74.5 % (50-75); Platelet Count 514 X10^3/uL (150-400); Red Blood Cell Count 5.01 X10^6/uL (4.0-5.2); Red Cell Distribution Width 19.8 % (11.6-14.8); White Blood Cell Count 18.8 X10^3/uL (4.5-11.0)
[2022-09-10 12:17] LABS: Alanine Aminotransferase 17 IU/L (<35); Albumin 3.5 g/dL (3.5-5.0); Alkaline Phosphatase 161 U/L (38-126); Aspartate Aminotransferase 17 IU/L (14-36); BUN Creatinine Ratio 23.2 (6-22); Bilirubin Total 0.5 mg/dL (0.2-1.3); Blood Urea Nitrogen 13 mg/dL (7-17); Calcium 8.7 mg/dL (8.4-10.2); Carbon Dioxide 35 mmol/L (22-32); Chloride 95 mmol/L (98-107); Estimated Glomerular Filt Rate > 60 mL/min (>60); Globulin 3.6 g/dL (1.7-4.1); Glucose 226 mg/dL (80-110); HEMOLYSIS < 15 (0-50); Potassium 4.5 mmol/L (3.4-5.1); Sodium 135 mmol/L (137-145); Total Protein 7.1 g/dL (6.3-8.2)
[2022-09-10 12:26] LABS: NT-proBNP (BNP-Adult 18+) 770 pg/mL (<125)
[2022-09-10 12:28] LABS: Microcytosis 3+
[2022-09-11 08:44] LABS: x Labcorp Estim. Avg Glu (eAG) 217 mg/dL (.); x Labcorp Hemoglobin A1c 9.2 % (4.8-5.6)
== END ==
PROVIDERS: PCP Nurse Practitioner Family; Referring Provider Nurse Practitioner Family; Visit Provider Nurse Practitioner Family
DX: R05.9 Cough, unspecified (principal); E11.9 Type 2 diabetes mellitus without complications
CPT/HCPCS: 36415; 80053; 83036; 83880; 85025

== ENCOUNTER → 2022-09-15 10:16 | Outpatient (CLI) | payer OTHER, MEDICAID, SELFPAY ==
[2021-01-31 19:05] VITALS: BMI 36.8
== END ==
PROVIDERS: PCP Nurse Practitioner Family; Visit Provider Surgery
DX: E11.621 Type 2 diabetes mellitus with foot ulcer (principal); L97.512 Non-pressure chronic ulcer of other part of right foot with fat layer exposed; L97.411 Non-pressure chronic ulcer of right heel and midfoot limited to breakdown of skin; L89.620 Pressure ulcer of left heel, unstageable; L97.412 Non-pressure chronic ulcer of right heel and midfoot with fat layer exposed; E11.40 Type 2 diabetes mellitus with diabetic neuropathy, unspecified; Z99.3 Dependence on wheelchair
CPT/HCPCS: 11042; 97597; 99213

== ENCOUNTER 2022-09-23 09:15 | Inpatient (IN) | payer MEDICAID, OTHER, SELFPAY ==
[2021-01-31 19:05] VITALS: BMI 36.8
[2022-09-23] VITALS (113 sets, daily range): BP systolic 121–180; BP diastolic 61–100; PULSE 54–98; RESP 10–37; TEMP 32–37; O2SAT 62–100; BMI 41.6
--- NOTE | 2022-09-23 09:27 | DI.RAD.S_ITS ---
PROCEDURE: XR CHEST 1V INDICATIONS: SOB, weak TECHNIQUE: One view of the chest was acquired. COMPARISON: [facility], CR, XR CHEST 2V, 04/14/2022, 14:07. FINDINGS: Surgical changes and devices: None. Lungs and pleura: Mild bibasilar atelectasis and or infiltrate, greater on the right Mediastinum: Heart size enlarged. Mild underlying vascular congestion. Right basilar atelectasis and or infiltrate. Bones and chest wall: No suspicious bony lesions. Overlying soft tissues appear unremarkable. IMPRESSION: Cardiomegaly, mild vascular congestion and bibasilar atelectasis and or infiltrate, greater on the right Approved by: Shiva Padgett M.D. on 09/23/2022 at 9:58
[2022-09-23] MEDS: NITROGLYCERIN 50 MG/250 ML INFUS..BTL 30 MG IV (09:35)
[2022-09-23] MEDS: FUROSEMIDE 40 MG/4 ML VIAL IV ×2 (09:35→16:03)
[2022-09-23 09:44] LABS: PO2 ABG 92 mmHg (80-100); pH ABG 7.34 (7.35-7.45)
[2022-09-23 09:45] LABS: Fractionated Inspired Oxygen 34; HCO3 ABG 30 mmol/L (23-27); Oxygen Saturation ABG 96 % (95-100); TCO2 ABG 32 mmol/L (23-27)
--- NOTE | 2022-09-23 09:50 | ED_ITS ---
HPI - SOB/Dyspnea General Chief Complaint: Shortness of Breath/Dyspnea Stated Complaint: Weakness, r/o UTI Time Seen by Provider: 09/23/22 09:26 History of Present Illness HPI Narrative: 62-year-old female nonsmoker with extensive chronic medical history including diabetes, vasculopathy, hypertension, hyperlipidemia, prior stroke, CHF is a DNR with limited interventions and presents by EMS for evaluation of increasing weakness, lethargy and shortness of breath. She comes from a local shelter facility and though they dispense meds she states that she is not been taking her Lasix for least a few days because she states they often take so long to help her when she asked to go to the bathroom that she does not want to.. She is had a significant weight gain over the past few weeks if not longer and is up 50 lb from her last visit to the emergency department. She reports significant shortness of breath when lying flat. She denies runny nose, sore throat but has had some cough. She denies any pain, nausea, vomiting or diarrhea. Related Data Home Medications Medication Instructions Recorded Confirmed acetaminophen 500 mg tablet 1 - 2 tab PO PRN PRN pain/ fever 12/28/16 09/23/22 (Tylenol Extra Strength) ##0 cyclobenzaprine 10 mg tablet 10 mg PO BID ##0 12/28/16 09/23/22 furosemide 20 mg tablet 20 mg PO QDAY ##0 12/28/16 09/23/22 atorvastatin 80 mg tablet 80 mg PO DAILY 07/08/20 09/23/22 clopidogrel 75 mg tablet 75 mg PO DAILY 07/08/20 09/23/22 liraglutide 0.6 mg/0.1 mL (18 mg/3 1.8 mg SUBCUT QWEEK 07/08/20 09/23/22 mL) subcutaneous pen injector (Victoza 3-Nicho) zolpidem 10 mg tablet 10 mg PO QPM 07/08/20 09/23/22 acetaminophen 300 mg-codeine 30 mg 1 tab PO Q6H PRN Pain (Scale Score 09/23/22 09/23/22 tablet 4-6) albuterol 90 mcg/actuation aerosol 2 mcg inhalation Q4H PRN shortness 09/23/22 09/23/22 inhaler of breath calcium carbonate 300 mg (750 mg) 300 mg PO BID PRN Dyspepsia 09/23/22 09/23/22 chewable tablet (Calcium Antacid) famotidine 20 mg tablet 20 mg PO DAILY 09/23/22 09/23/22 fluticasone propionate 50 1 spray intranasal DAILY 09/23/22 09/23/22 mcg/actuation nasal spray,suspension (Allergy Relief (fluticasone)) insulin detemir U-100 100 unit/mL 60 unit SUBCUT BEDTIME 09/23/22 09/23/22 (3 mL) subcutaneous pen (Levemir FlexPen) loperamide 2 mg capsule 2 mg PO Q6H PRN Diarrhea 09/23/22 09/23/22 mirtazapine 7.5 mg tablet 7.5 mg PO BEDTIME 09/23/22 09/23/22 mupirocin 2 % topical ointment 1 applic topical DAILY 09/23/22 09/23/22 nystatin 100,000 unit/gram topical 1 applic topical BID 09/23/22 09/23/22 powder ondansetron 4 mg disintegrating 4 mg PO Q6H PRN Nausea 09/23/22 09/23/22 tablet polyethylene glycol 3350 17 gram 17 g PO DAILY PRN Constipation 09/23/22 09/23/22 oral powder packet (Miralax) Previous Rx's Medication Instructions Recorded citalopram 40 mg tablet 40 mg PO DAILY #30 tabs 07/12/20 Allergies Allergy/AdvReac Type Severity Reaction Status Date / Time Sulfa (Sulfonamide Allergy Intermediate RASH Verified 09/23/22 10:26 Antibiotics) hydrocodone Allergy Unknown ITCH Verified 09/23/22 10:26 Review of Systems Review of Systems Narrative: GENERAL: See HPI HEENT: Denies sinus pain, ear pain, sore throat, difficulty swallowing, dizziness. RESPIRATORY: See HPI CARDIOVASCULAR: See HPI GASTROINTESTINAL: Denies nausea, vomiting, abdominal pain, diarrhea, constipation, melena. : Denies dysuria, frequency, incontinence, hematuria, urinary retention. MUSCULOSKELETAL: denies weakness, joint pain, or bony pain SKIN: Denies rash, skin lesions, or other NEUROLOGIC: Denies weakness, headache, numbness, change in speech, confusion, seizures, incoordination. PSYCHIATRIC: No concerning psychosocial issues. 12 point review of systems is negative except for those stated above Patient History Medical History CHF (congestive heart failure) Diabetes Hyperlipidemia Hypertension Peripheral neuropathy PVD (peripheral vascular disease) TIA (transient ischemic attack) Surgical History H/O angioplasty History of cholecystectomy Social History household members: caregiver Smoking Status: Current every day smoker alcohol intake: never Smoking Status: Current every day smoker alcohol intake frequency: 0-2 drinks per day Substance Use Type: does not use Exam Narrative Exam Narrative: GENERAL: [62] year old patient appears stated age. Evidence of chronic illness, in obvious distress, increased work of breathing with rapid shallow breathing, SpO2 upper 60s HEAD: Atraumatic. Normocephalic. EYES: Pupils equal round and reactive. Extraocular motions intact. No scleral icterus. No injection or drainage. ENT: Nose without bleeding, purulent drainage. Throat without erythema, tonsillar hypertrophy or exudate. Airway patent. NECK: Trachea midline. Non tender CARDIOVASCULAR: Regular rate and rhythm without murmurs, gallops, or rubs. RESPIRATORY: Clear to auscultation. Breath sounds equal bilaterally. No wheezes, rales, or rhonchi. GASTROINTESTINAL: Abdomen soft, non-tender, nondistended. EXTREMITIES: No edema or joint tenderness. BACK: Nontender without deformity or crepitance. No flank tenderness. NEURO: AOx3. SKIN: No rash or erythema of visible areas Initial Vital Signs Initial Vital Signs: Vital Signs Pulse Rate 54 L 09/23/22 09:18 Pulse Oximetry 62 L 09/23/22 09:18 Course Orders Ordered: Acetaminophen/Codeine Phosphate (Codeine/Acetaminophen 30/300 Tablet) 1 tab PO Q4HR PRN PRN Reason: Pain, Moderate (4-6) Last Admin: 09/25/22 02:56 Dose: 1 tab Documented By: MP Albuterol (Albuterol 2.5 Mg/3 Ml Neb (Adult)) 2.5 mg INH [id number] PRN PRN Reason: Shortness Of Breath Albuterol/Ipratropium (Albuterol/Ipratropium 3 Ml Ampul) 3 ml INH [id number] SAMEER Last Admin: 09/25/22 09:33 Dose: Not Given Documented By: Admin: 09/24/22 23:48 Dose: 3 ml Documented By: Admin: 09/24/22 19:14 Dose: 3 ml Documented By: Admin: 09/24/22 15:05 Dose: 3 ml Documented By: DEE(2) Admin: 09/24/22 11:13 Dose: 3 ml Documented By: Admin: 09/24/22 07:23 Dose: 3 ml Documented By: DEE(2) Admin: 09/23/22 22:58 Dose: 3 ml Documented By: Admin: 09/23/22 18:57 Dose: 3 ml Documented By: DEE Citalopram Hydrobromide (Citalopram 10 Mg Tablet) 40 mg PO DAILY [facility] Last Admin: 09/25/22 08:26 Dose: 40 mg Documented By: Admin: 09/24/22 08:14 Dose: Not Given Documented By: NAOMI Clopidogrel Bisulfate (Clopidogrel 75 Mg Tablet) 75 mg PO DAILY [facility] Last Admin: 09/25/22 08:25 Dose: 75 mg Documented By: Admin: 09/24/22 08:06 Dose: 75 mg Documented By: NAOMI Cyclobenzaprine HCl (Cyclobenzaprine 10 Mg Tablet) 10 mg PO BID [facility] Last Admin: 09/25/22 08:25 Dose: 10 mg Documented By: Admin: 09/24/22 20:29 Dose: 10 mg Documented By: Admin: 09/24/22 08:09 Dose: 10 mg Documented By: Admin: 09/23/22 20:36 Dose: Not Given Documented By: OMKAR Dextrose (Dextrose 50 % In Water 25 Gm/50 Ml Syringe) 25 gm IV PRN PRN PRN Reason: Hypoglycemia Enoxaparin Sodium (Enoxaparin 40 Mg/0.4 Ml Syringe) 40 mg SUBCUT BID [facility] Last Admin: 09/25/22 08:25 Dose: 40 mg Documented By: Admin: 09/24/22 20:28 Dose: 40 mg Documented By: POONAM Famotidine (Famotidine 20 Mg/2 Ml Vial) 20 mg IV NOW [facility] Last Admin: 09/23/22 10:33 Dose: 20 mg Documented By: STAS Furosemide (Furosemide 40 Mg/4 Ml Vial) 40 mg IV 1600,0800 [facility] Last Admin: 09/25/22 07:56 Dose: 40 mg Documented By: Admin: 09/24/22 15:22 Dose: 40 mg Documented By: Admin: 09/24/22 08:04 Dose: 40 mg Documented By: Admin: 09/23/22 16:03 Dose: 40 mg Documented By: CHRISTIANO Nitroglycerin (Nitroglycerin) 50 mg in 250 mls @ 30 mls/hr IV TITRATE SAMEER; Protocol Last Titration: 09/23/22 10:36 Dose: 0 mcg/min, 0 mls/hr Documented By: Admin: 09/23/22 09:35 Dose: 100 mcg/min, 30 mls/hr Documented By: DANIEL Ceftriaxone Sodium 1,000 mg/ (Sodium Chloride) 100 mls @ 200 mls/hr IV Q24H SAMEER Stop: 09/28/22 09:29 Insulin Glargine (Insulin Glargine 100 Unit/Ml 3ml Pen) 40 unit SUBCUT BID [facility] Last Admin: 09/25/22 08:24 Dose: 40 unit Documented By: Co-signed By: NAOMI Admin: 09/24/22 20:30 Dose: 40 unit Documented By: POONAM Co-signed By: DANIEL Admin: 09/24/22 08:16 Dose: 40 unit Documented By: NAOMI Co-signed By: RADHA Admin: 09/23/22 20:59 Dose: 40 unit Documented By: OMKAR Co-signed By: Insulin Human Lispro (Insulin Lispro 100 Unit/Ml 3ml Vial) 0 unit SUBCUT ACHS SAMEER; Protocol Last Admin: 09/25/22 07:35 Dose: Not Given Documented By: Admin: 09/24/22 20:50 Dose: Not Given Documented By: Admin: 09/24/22 16:46 Dose: 10 unit Documented By: NAOMI Co-signed By: RADHA Admin: 09/24/22 12:04 Dose: 4 unit Documented By: NAOMI Co-signed By: RADHA Admin: 09/24/22 08:04 Dose: 2 unit Documented By: NAOMI Co-signed By: RADHA Admin: 09/23/22 20:57 Dose: 2 unit Documented By: OMKAR Co-signed By: Admin: 09/23/22 17:10 Dose: 4 unit Documented By: CHRISTIANO Co-signed By: NAOMI Losartan Potassium (Losartan 25 Mg Tablet) 25 mg PO DAILY [facility] Last Admin: 09/25/22 08:26 Dose: 25 mg Documented By: Admin: 09/24/22 08:06 Dose: 25 mg Documented By: NAOMI Meclizine HCl (Meclizine Hcl 12.5 Mg Tablet) 25 mg PO TID [facility] Last Admin: 09/25/22 08:33 Dose: Not Given Documented By: Admin: 09/24/22 20:02 Dose: Not Given Documented By: Admin: 09/24/22 15:19 Dose: Not Given Documented By: Admin: 09/24/22 08:14 Dose: Not Given Documented By: Admin: 09/23/22 20:36 Dose: Not Given Documented By: OMKAR Melatonin (Melatonin 3 Mg Tablet) 6 mg PO BEDTIME PRN PRN Reason: Insomnia Mirtazapine (Mirtazapine 15 Mg Tablet) 7.5 mg PO BEDTIME [facility] Last Admin: 09/24/22 20:29 Dose: 7.5 mg Documented By: Admin: 09/23/22 21:01 Dose: 7.5 mg Documented By: OMKAR Naloxone HCl (Naloxone 0.4 Mg/Ml Vial) 0.2 mg IV Q2MIN PRN PRN Reason: Opiate Reversal Nystatin (Nystatin Powder 15gm) 1 applic TOP BID [facility] Last Admin: 09/25/22 08:44 Dose: Not Given Documented By: Admin: 09/24/22 20:02 Dose: Not Given Documented By: Admin: 09/24/22 08:07 Dose: Not Given Documented By: Admin: 09/23/22 21:11 Dose: Not Given Documented By: OMKAR Pantoprazole Sodium (Pantoprazole Dr 40 Mg Tablet) 40 mg PO 0700 [facility] Last Admin: 09/25/22 07:35 Dose: Not Given Documented By: Admin: 09/24/22 07:30 Dose: 40 mg Documented By: NAOMI Polyethylene Glycol (Polyethylene Glycol 3350 17 Gm Powd.Pack) 17 gm PO DAILY PRN PRN Reason: Constipation Potassium Chloride (Potassium Chloride 20 Meq Tab) 40 meq PO DAILYCC [facility] Sennosides (Sennosides 8.6 Mg Tablet) 8.6 mg PO BID PRN PRN Reason: Constipation Sodium Chloride (Sodium Chloride 0.9% Flush) 10 ml IV PRN PRN PRN Reason: Flush Sodium Chloride (Sodium Chloride 0.9% Flush) 10 ml IV BID [facility] Last Admin: 09/25/22 08:24 Dose: 10 ml Documented By: Zolpidem Tartrate (Zolpidem 5 Mg Tablet) 10 mg PO BEDTIME [facility] Last Admin: 09/24/22 20:29 Dose: 10 mg Documented By: Admin: 09/23/22 21:01 Dose: 10 mg Documented By: LN Discontinued Medications Acetaminophen (Acetaminophen 325 Mg Tablet) 650 mg PO Q6H PRN PRN Reason: Fever/Mild Pain (1-3) Albuterol/Ipratropium (Albuterol/Ipratropium 3 Ml Ampul) 3 ml INH [id number] [facility] Diphenhydramine HCl (Diphenhydramine 50 Mg/Ml Vial) 25 mg IV NOW ONE Stop: 09/23/22 10:23 Last Admin: 09/23/22 10:35 Dose: 25 mg Documented By: STAS Duloxetine HCl (Duloxetine 20 Mg Capsule) 20 mg PO DAILY [facility] Enoxaparin Sodium (Enoxaparin 40 Mg/0.4 Ml Syringe) 40 mg SUBCUT DAILY [facility] Last Admin: 09/24/22 08:04 Dose: 40 mg Documented By: Admin: 09/23/22 16:03 Dose: 40 mg Documented By: CHRISTIANO Furosemide (Furosemide 40 Mg/4 Ml Vial) 40 mg IV NOW ONE Stop: 09/23/22 09:27 Last Admin: 09/23/22 09:35 Dose: 40 mg Documented By: DANIEL Piperacillin Sod/Tazobactam (Sod 4.5 gm/ Sodium Chloride) 100 mls @ 200 mls/hr IV NOW ONE Stop: 09/23/22 10:23 Last Infusion: 09/23/22 11:38 Dose: 0 mls/hr Documented By: Admin: 09/23/22 10:33 Dose: 200 mls/hr Documented By: STAS Methylprednisolone (Methylprednisolone 125 Mg/2 Ml Vial) 125 mg IV NOW ONE Stop: 09/23/22 10:23 Last Admin: 09/23/22 10:35 Dose: 125 mg Documented By: STAS Potassium Chloride (Potassium Chloride 20 Meq Tab) 40 meq PO NOW ONE Stop: 09/25/22 09:31 Potassium Chloride (Potassium Chloride 20 Meq Tab) 40 meq PO DAILYCC [facility] Consultations Consultation #1: discussed with GI at [facility]. After extensive discussions patient's history and physical exam, medical history, labs and imaging, recommend ordering hepatitis panel, trending LFTs and INR, no specific intervention or treatment at this time. Could consider the use of Mucomyst until LFTs trend down. If INR climbs significantly patient may be candidate for transfer, continues to be available and consultation if needed Vital Signs Vital signs: Vital Signs - 8 hr 09/23/22 09:25 09/23/22 09:18 09/23/22 09:19 Temperature 98.6 F Pulse Rate 98 H 54 L Respiratory Rate 26 H Blood Pressure 121/76 121/76 Pulse Oximetry 75 L 62 L Oxygen Delivery Method Room Air Oxygen Flow Rate Fraction of Inspired Oxygen 09/23/22 09:19 09/23/22 09:20 09/23/22 09:21 Temperature Pulse Rate 65 98 H 98 H Respiratory Rate 34 H Blood Pressure Pulse Oximetry 63 L 75 L 73 L Oxygen Delivery Method Oxygen Flow Rate Fraction of Inspired Oxygen 09/23/22 09:22 09/23/22 09:23 09/23/22 09:24 Temperature Pulse Rate 98 H 98 H 97 H Respiratory Rate 34 H 29 H 35 H Blood Pressure Pulse Oximetry 76 L 74 L 77 L Oxygen Delivery Method Oxygen Flow Rate Fraction of Inspired Oxygen 09/23/22 09:25 09/23/22 09:26 09/23/22 09:27 Temperature Pulse Rate 97 H 96 H 96 H Respiratory Rate 35 H 31 H 31 H Blood Pressure Pulse Oximetry 88 L 90 L 90 L Oxygen Delivery Method Nasal Cannula Oxygen Flow Rate 3 Fraction of Inspired Oxygen 09/23/22 09:28 09/23/22 09:29 09/23/22 09:30 Temperature Pulse Rate 96 H 96 H 96 H Respiratory Rate 31 H 30 H 31 H Blood Pressure Pulse Oximetry 93 95 94 Oxygen Delivery Method Oxygen Flow Rate Fraction of Inspired Oxygen 09/23/22 09:31 09/23/22 09:32 09/23/22 09:33 Temperature Pulse Rate 96 H 96 H 96 H Respiratory Rate 29 H 29 H 30 H Blood Pressure Pulse Oximetry 95 96 96 Oxygen Delivery Method Oxygen Flow Rate Fraction of Inspired Oxygen 09/23/22 09:34 09/23/22 09:35 09/23/22 09:36 Temperature Pulse Rate 95 H 95 H 96 H Respiratory Rate 32 H 32 H 32 H Blood Pressure Pulse Oximetry 95 95 95 Oxygen Delivery Method Oxygen Flow Rate Fraction of Inspired Oxygen 09/23/22 09:37 09/23/22 09:37 09/23/22 09:38 Temperature Pulse Rate 95 H 95 H Respiratory Rate 29 H 30 H Blood Pressure 179/74 H Pulse Oximetry 95 96 Oxygen Delivery Method Nasal Cannula Oxygen Flow Rate 3 Fraction of Inspired Oxygen 09/23/22 09:39 09/23/22 09:40 09/23/22 09:40 Temperature Pulse Rate 96 H 96 H Respiratory Rate 30 H 31 H Blood Pressure 161/74 H Pulse Oximetry 96 95 Oxygen Delivery Method Oxygen Flow Rate Fraction of Inspired Oxygen 09/23/22 09:41 09/23/22 09:42 09/23/22 09:43 Temperature Pulse Rate 96 H 96 H Respiratory Rate 34 H 34 H Blood Pressure 166/74 H Pulse Oximetry 94 93 Oxygen Delivery Method Oxygen Flow Rate Fraction of Inspired Oxygen 09/23/22 09:43 09/23/22 09:44 09/23/22 09:44 Temperature Pulse Rate 96 H 96 H Respiratory Rate 30 H 32 H Blood Pressure 163/74 H Pulse Oximetry 94 95 Oxygen Delivery Method Oxygen Flow Rate Fraction of Inspired Oxygen 09/23/22 09:45 09/23/22 09:45 09/23/22 09:46 Temperature Pulse Rate 96 H 96 H Respiratory Rate 32 H 34 H Blood Pressure 180/100 H Pulse Oximetry 94 94 Oxygen Delivery Method Nasal Cannula Oxygen Flow Rate 3 Fraction of Inspired Oxygen 09/23/22 09:47 09/23/22 09:47 09/23/22 09:48 Temperature Pulse Rate 96 H Respiratory Rate 36 H Blood Pressure 165/74 H 154/82 H Pulse Oximetry 92 Oxygen Delivery Method Oxygen Flow Rate Fraction of Inspired Oxygen 09/23/22 09:48 09/23/22 10:01 09/23/22 09:49 Temperature Pulse Rate 96 H 96 H Respiratory Rate 34 H 32 H Blood Pressure 149/73 H Pulse Oximetry 90 L 92 Oxygen Delivery Method Nasal Cannula Oxygen Flow Rate 3 Fraction of Inspired Oxygen 35 09/23/22 09:49 09/23/22 09:50 09/23/22 09:50 Temperature Pulse Rate 96 H Respiratory Rate 33 H Blood Pressure 150/84 H 156/83 H Pulse Oximetry 91 Oxygen Delivery Method Nasal Cannula Oxygen Flow Rate 3 Fraction of Inspired Oxygen 09/23/22 09:51 09/23/22 09:51 09/23/22 09:52 Temperature Pulse Rate 96 H Respiratory Rate 37 H Blood Pressure 151/84 H 146/81 H Pulse Oximetry 90 L Oxygen Delivery Method Oxygen Flow Rate Fraction of Inspired Oxygen 09/23/22 09:53 09/23/22 09:54 09/23/22 09:55 Temperature Pulse Rate Respiratory Rate Blood Pressure 147/78 H 143/77 H 142/79 H Pulse Oximetry Oxygen Delivery Method Oxygen Flow Rate Fraction of Inspired Oxygen 09/23/22 09:55 09/23/22 09:56 09/23/22 09:57 Temperature Pulse Rate 97 H Respiratory Rate 31 H Blood Pressure 145/78 H 148/74 H Pulse Oximetry 95 Oxygen Delivery Method Oxygen Flow Rate Fraction of Inspired Oxygen 09/23/22 09:57 09/23/22 09:58 09/23/22 09:58 Temperature Pulse Rate 96 H 95 H Respiratory Rate 29 H 29 H Blood Pressure 147/74 H Pulse Oximetry 95 94 Oxygen Delivery Method Oxygen Flow Rate Fraction of Inspired Oxygen 09/23/22 09:59 09/23/22 09:59 09/23/22 10:00 Temperature Pulse Rate 95 H Respiratory Rate 27 H Blood Pressure 150/84 H 148/83 H Pulse Oximetry 95 Oxygen Delivery Method Oxygen Flow Rate Fraction of Inspired Oxygen 09/23/22 10:00 09/23/22 10:02 09/23/22 10:02 Temperature Pulse Rate 93 H 96 H Respiratory Rate 31 H 29 H Blood Pressure 149/63 H Pulse Oximetry 95 95 Oxygen Delivery Method Oxygen Flow Rate Fraction of Inspired Oxygen 09/23/22 10:03 09/23/22 10:03 09/23/22 10:04 Temperature Pulse Rate 94 H Respiratory Rate 32 H Blood Pressure 148/70 H 149/73 H Pulse Oximetry 95 Oxygen Delivery Method Oxygen Flow Rate Fraction of Inspired Oxygen 09/23/22 10:04 09/23/22 10:05 09/23/22 10:19 Temperature Pulse Rate 93 H 92 H Respiratory Rate 29 H 31 H Blood Pressure 149/73 H 141/70 H Pulse Oximetry 96 96 Oxygen Delivery Method Oxygen Flow Rate Fraction of Inspired Oxygen 09/23/22 10:20 09/23/22 10:20 09/23/22 10:21 Temperature Pulse Rate 92 H Respiratory Rate 27 H Blood Pressure 141/70 H 139/71 Pulse Oximetry 96 Oxygen Delivery Method Oxygen Flow Rate Fraction of Inspired Oxygen 09/23/22 10:21 09/23/22 10:22 09/23/22 10:22 Temperature Pulse Rate 93 H 92 H Respiratory Rate 32 H 27 H Blood Pressure 132/72 Pulse Oximetry 96 95 Oxygen Delivery Method Oxygen Flow Rate Fraction of Inspired Oxygen 09/23/22 10:23 09/23/22 10:23 09/23/22 10:24 Temperature Pulse Rate 93 H Respiratory Rate 28 H Blood Pressure 141/70 H 142/72 H Pulse Oximetry 96 Oxygen Delivery Method Oxygen Flow Rate Fraction of Inspired Oxygen 09/23/22 10:24 09/23/22 10:25 09/23/22 10:25 Temperature Pulse Rate 91 H 91 H Respiratory Rate 29 H 29 H Blood Pressure 142/71 H Pulse Oximetry 96 96 Oxygen Delivery Method Oxygen Flow Rate Fraction of Inspired Oxygen 09/23/22 10:26 09/23/22 10:26 09/23/22 10:27 Temperature Pulse Rate 91 H Respiratory Rate 28 H Blood Pressure 140/72 137/69 Pulse Oximetry 95 Oxygen Delivery Method Oxygen Flow Rate Fraction of Inspired Oxygen 09/23/22 10:27 09/23/22 10:28 09/23/22 10:28 Temperature Pulse Rate 91 H 91 H Respiratory Rate 30 H 29 H Blood Pressure 137/69 Pulse Oximetry 94 94 Oxygen Delivery Method Oxygen Flow Rate Fraction of Inspired Oxygen 09/23/22 10:29 09/23/22 10:29 09/23/22 10:30 Temperature Pulse Rate 90 Respiratory Rate 29 H Blood Pressure 135/66 132/68 Pulse Oximetry 94 Oxygen Delivery Method Oxygen Flow Rate Fraction of Inspired Oxygen 09/23/22 10:30 09/23/22 10:31 09/23/22 10:31 Temperature Pulse Rate 90 91 H Respiratory Rate 29 H 34 H Blood Pressure 137/71 Pulse Oximetry 93 94 Oxygen Delivery Method Oxygen Flow Rate Fraction of Inspired Oxygen 09/23/22 10:32 09/23/22 10:32 09/23/22 10:33 Temperature Pulse Rate 92 H Respiratory Rate 34 H Blood Pressure 137/74 131/74 Pulse Oximetry 93 Oxygen Delivery Method Oxygen Flow Rate Fraction of Inspired Oxygen 09/23/22 10:33 09/23/22 10:35 09/23/22 10:35 Temperature Pulse Rate 91 H 91 H Respiratory Rate 30 H 30 H Blood Pressure 135/75 Pulse Oximetry 93 93 Oxygen Delivery Method Oxygen Flow Rate Fraction of Inspired Oxygen 09/23/22 10:40 09/23/22 10:40 09/23/22 10:45 Temperature Pulse Rate 91 H Respiratory Rate 31 H Blood Pressure 145/79 H 140/76 Pulse Oximetry 94 Oxygen Delivery Method Oxygen Flow Rate Fraction of Inspired Oxygen 09/23/22 10:45 09/23/22 10:50 09/23/22 10:50 Temperature Pulse Rate 91 H 91 H Respiratory Rate 33 H 37 H Blood Pressure 145/74 H Pulse Oximetry 92 Oxygen Delivery Method Oxygen Flow Rate Fraction of Inspired Oxygen 09/23/22 11:06 09/23/22 11:09 09/23/22 11:09 Temperature Pulse Rate 92 H Respiratory Rate 30 H Blood Pressure 140/87 Pulse Oximetry 100 88 L Oxygen Delivery Method Oxygen Flow Rate Fraction of Inspired Oxygen 09/23/22 11:10 09/23/22 11:10 09/23/22 11:15 Temperature Pulse Rate 91 H 88 Respiratory Rate 30 H 28 H Blood Pressure 151/94 H Pulse Oximetry 91 96 Oxygen Delivery Method Oxygen Flow Rate Fraction of Inspired Oxygen 09/23/22 11:15 09/23/22 11:20 09/23/22 11:20 Temperature Pulse Rate 89 Respiratory Rate 29 H Blood Pressure 159/91 H 156/89 H Pulse Oximetry 95 Oxygen Delivery Method Oxygen Flow Rate Fraction of Inspired Oxygen 09/23/22 11:25 09/23/22 11:25 09/23/22 11:30 Temperature Pulse Rate 89 Respiratory Rate 30 H Blood Pressure 173/90 H 161/85 H Pulse Oximetry 97 Oxygen Delivery Method Oxygen Flow Rate Fraction of Inspired Oxygen 09/23/22 11:30 Temperature Pulse Rate 89 Respiratory Rate 29 H Blood Pressure Pulse Oximetry 95 Oxygen Delivery Method Oxygen Flow Rate Fraction of Inspired Oxygen MDM - SOB/Dyspnea Lab Data 09/25/22 04:30 09/25/22 04:30 Labs: Lab Results 09/23/22 09/23/22 09/23/22 Range/Units 09:25 09:25 09:25 WBC 27.8 H (4.5-11.0) X10^3/uL RBC 4.90 (4.0-5.2) X10^6/uL Hgb 9.1 L (12.0-16.0) g/dL Hct 32.1 L (36-46) % MCV 65.4 L (80-100) fL MCH 18.6 L (26-34) PG MCHC 28.5 L (30-36) % RDW 19.6 H (11.6-14.8) % Plt Count 513 H (150-400) X10^3/uL Neut % (Auto) 79.6 H (50-75) % Lymph % (Auto) 7.1 L (25-40) % [place] % (Auto) 12.4 (3-14) % Eos % (Auto) 0.1 L (2-4) % Baso % (Auto) 0.8 (0-2) % Neut # (Auto) 62954 H (6049-5667) /uL Lymph # (Auto) 2000 (5347-5706) /uL [place] # (Auto) 3400 H (0-900) /uL Eos # (Auto) 0 (0-450) /uL Baso # (Auto) 200 H (0-100) /uL RBC Morphology See below Hypochromasia 1+ H Anisocytosis 2+ H Microcytosis 2+ H Stomatocytes 1+ H PT (10.1-12.7) SECONDS INR (0.9-1.3) D-Dimer (<500) ng/ml ABG pH (7.35-7.45) ABG pCO2 (35-45) mmHg ABG pO2 (80-100) mmHg ABG HCO3 (23-27) mmol/L ABG Total CO2 (23-27) mmol/L ABG O2 Saturation (95-100) % ABG Base Excess (-2-3) mmol/L FiO2 Sodium 135 L (137-145) mmol/L Potassium 5.9 H (3.4-5.1) mmol/L Chloride 94 L (98-107) mmol/L Carbon Dioxide 35 H (22-32) mmol/L BUN 28 H (7-17) mg/dL Creatinine 0.92 (0.52-1.04) mg/dL Estimated GFR > 60 (>60) mL/min BUN/Creatinine Ratio 30.4 H (6-22) Glucose 183 H (80-110) mg/dL Lactate 3.9 H (0.7-2.1) mmol/L Calcium 9.2 (8.4-10.2) mg/dL Magnesium 1.7 (1.6-2.3) mg/dL Total Bilirubin 0.9 (0.2-1.3) mg/dL AST 1693 H (14-36) IU/L ALT 1139 H (<35) IU/L Alkaline Phosphatase 199 H (38-126) U/L Total Creatine Kinase 31 (30-135) U/L CK-MB (CK-2) TNP CK-MB (CK-2) Rel Index TNP Troponin I 0.055 H (0.01-0.034) ng/mL NT-Pro-B Natriuret Pep 4010 H (<125) pg/mL Total Protein 8.0 (6.3-8.2) g/dL Albumin 3.9 (3.5-5.0) g/dL Globulin 4.1 (1.7-4.1) g/dL Albumin/Globulin Ratio 1.0 (1.0-2.8) Lipase 34 (23-300) U/L Procalcitonin (<0.5) ng/mL TSH (0.47-4.68) uIU/mL Urine Color Urine Appearance Urine pH (4.5-8.0) Ur Specific [place] (1.000-1.035) Urine Protein (Negative) Urine Glucose (UA) (Negative) g/dL Urine Ketones (NEGATIVE) Urine Occult Blood (Negative) Urine Nitrate (Negative) Urine Bilirubin (NEGATIVE) Urine Urobilinogen (0.2) E.U./dL Ur Leukocyte Esterase (NEGATIVE) Urine RBC (0-5/HPF) Urine WBC (0-5/HPF) Ur Squamous Epith Cells (0-5/HPF) Urine Bacteria (None) Ur Culture Indicated? Acetaminophen (10-30) ug/mL Chlamy pneumoniae PCR (Not Detect) Adenovirus (PCR) (Not Detect) B. pertussis DNA (PCR) (Not Detecte) B.parapertussis DNA PCR (Not Detecte) Coronavirus OC43 (PCR) (Not Detect) Coronavirus HKU1 (PCR) (Not Detect) Coronavirus 229E (PCR) (Not Detect) SARS-CoV-2 (PCR) (Not Detecte) Coronavirus NL63 (PCR) (Not Detect) Hepatitis A IgM Ab (Negative) Hep Bs Antigen (Negative) Hep B Core IgM Ab (Negative) Hepatitis C Antibody (Non Reactive) Hep C Ab Signal/Cutoff (.) Human Metapneumovir PCR (Not Detect) Influenza Type A (PCR) (Not Detect) Influenza Type B (PCR) (Not Detect) M. pneumoniae (PCR) (Not Detect) Parainfluenza 1 (PCR) (Not Detect) Parainfluenza 2 (PCR) (Not Detect) Parainfluenza 3 (PCR) (Not Detect) Parainfluenza 4 (PCR) (Not Detect) RSV (PCR) (Not Detect) Entero/Rhino (PCR) (Not Detect) 09/23/22 09/23/22 09/23/22 Range/Units 09:25 09:25 09:35 WBC (4.5-11.0) X10^3/uL RBC (4.0-5.2) X10^6/uL Hgb (12.0-16.0) g/dL Hct (36-46) % MCV (80-100) fL MCH (26-34) PG MCHC (30-36) % RDW (11.6-14.8) % Plt Count (150-400) X10^3/uL Neut % (Auto) (50-75) % Lymph % (Auto) (25-40) % [place] % (Auto) (3-14) % Eos % (Auto) (2-4) % Baso % (Auto) (0-2) % Neut # (Auto) (9544-6578) /uL Lymph # (Auto) (7227-7052) /uL [place] # (Auto) (0-900) /uL Eos # (Auto) (0-450) /uL Baso # (Auto) (0-100) /uL RBC Morphology Hypochromasia Anisocytosis Microcytosis Stomatocytes PT (10.1-12.7) SECONDS INR (0.9-1.3) D-Dimer 2193 H (<500) ng/ml ABG pH 7.34 L (7.35-7.45) ABG pCO2 56.0 H (35-45) mmHg ABG pO2 92 (80-100) mmHg ABG HCO3 30 H (23-27) mmol/L ABG Total CO2 32 H (23-27) mmol/L ABG O2 Saturation 96 (95-100) % ABG Base Excess 4.0 H (-2-3) mmol/L FiO2 34 Sodium (137-145) mmol/L Potassium (3.4-5.1) mmol/L Chloride (98-107) mmol/L Carbon Dioxide (22-32) mmol/L BUN (7-17) mg/dL Creatinine (0.52-1.04) mg/dL Estimated GFR (>60) mL/min BUN/Creatinine Ratio (6-22) Glucose (80-110) mg/dL Lactate (0.7-2.1) mmol/L Calcium (8.4-10.2) mg/dL Magnesium (1.6-2.3) mg/dL Total Bilirubin (0.2-1.3) mg/dL AST (14-36) IU/L ALT (<35) IU/L Alkaline Phosphatase (38-126) U/L Total Creatine Kinase (30-135) U/L CK-MB (CK-2) CK-MB (CK-2) Rel Index Troponin I (0.01-0.034) ng/mL NT-Pro-B Natriuret Pep (<125) pg/mL Total Protein (6.3-8.2) g/dL Albumin (3.5-5.0) g/dL Globulin (1.7-4.1) g/dL Albumin/Globulin Ratio (1.0-2.8) Lipase (23-300) U/L Procalcitonin 0.15 (<0.5) ng/mL TSH (0.47-4.68) uIU/mL Urine Color Urine Appearance Urine pH (4.5-8.0) Ur Specific [place] (1.000-1.035) Urine Protein (Negative) Urine Glucose (UA) (Negative) g/dL Urine Ketones (NEGATIVE) Urine Occult Blood (Negative) Urine Nitrate (Negative) Urine Bilirubin (NEGATIVE) Urine Urobilinogen (0.2) E.U./dL Ur Leukocyte Esterase (NEGATIVE) Urine RBC (0-5/HPF) Urine WBC (0-5/HPF) Ur Squamous Epith Cells (0-5/HPF) Urine Bacteria (None) Ur Culture Indicated? Acetaminophen (10-30) ug/mL Chlamy pneumoniae PCR (Not Detect) Adenovirus (PCR) (Not Detect) B. pertussis DNA (PCR) (Not Detecte) B.parapertussis DNA PCR (Not Detecte) Coronavirus OC43 (PCR) (Not Detect) Coronavirus HKU1 (PCR) (Not Detect) Coronavirus 229E (PCR) (Not Detect) SARS-CoV-2 (PCR) (Not Detecte) Coronavirus NL63 (PCR) (Not Detect) Hepatitis A IgM Ab (Negative) Hep Bs Antigen (Negative) Hep B Core IgM Ab (Negative) Hepatitis C Antibody (Non Reactive) Hep C Ab Signal/Cutoff (.) Human Metapneumovir PCR (Not Detect) Influenza Type A (PCR) (Not Detect) Influenza Type B (PCR) (Not Detect) M. pneumoniae (PCR) (Not Detect) Parainfluenza 1 (PCR) (Not Detect) Parainfluenza 2 (PCR) (Not Detect) Parainfluenza 3 (PCR) (Not Detect) Parainfluenza 4 (PCR) (Not Detect) RSV (PCR) (Not Detect) Entero/Rhino (PCR) (Not Detect) 09/23/22 09/23/22 09/23/22 Range/Units 09:50 09:50 09:50 WBC (4.5-11.0) X10^3/uL RBC (4.0-5.2) X10^6/uL Hgb (12.0-16.0) g/dL Hct (36-46) % MCV (80-100) fL MCH (26-34) PG MCHC (30-36) % RDW (11.6-14.8) % Plt Count (150-400) X10^3/uL Neut % (Auto) (50-75) % Lymph % (Auto) (25-40) % [place] % (Auto) (3-14) % Eos % (Auto) (2-4) % Baso % (Auto) (0-2) % Neut # (Auto) (8255-2414) /uL Lymph # (Auto) (9787-1656) /uL [place] # (Auto) (0-900) /uL Eos # (Auto) (0-450) /uL Baso # (Auto) (0-100) /uL RBC Morphology Hypochromasia Anisocytosis Microcytosis Stomatocytes PT 17.6 H (10.1-12.7) SECONDS INR 1.5 H (0.9-1.3) D-Dimer (<500) ng/ml ABG pH (7.35-7.45) ABG pCO2 (35-45) mmHg ABG pO2 (80-100) mmHg ABG HCO3 (23-27) mmol/L ABG Total CO2 (23-27) mmol/L ABG O2 Saturation (95-100) % ABG Base Excess (-2-3) mmol/L FiO2 Sodium (137-145) mmol/L Potassium (3.4-5.1) mmol/L Chloride (98-107) mmol/L Carbon Dioxide (22-32) mmol/L BUN (7-17) mg/dL Creatinine (0.52-1.04) mg/dL Estimated GFR (>60) mL/min BUN/Creatinine Ratio (6-22) Glucose (80-110) mg/dL Lactate (0.7-2.1) mmol/L Calcium (8.4-10.2) mg/dL Magnesium (1.6-2.3) mg/dL Total Bilirubin (0.2-1.3) mg/dL AST (14-36) IU/L ALT (<35) IU/L Alkaline Phosphatase (38-126) U/L Total Creatine Kinase (30-135) U/L CK-MB (CK-2) CK-MB (CK-2) Rel Index Troponin I (0.01-0.034) ng/mL NT-Pro-B Natriuret Pep (<125) pg/mL Total Protein (6.3-8.2) g/dL Albumin (3.5-5.0) g/dL Globulin (1.7-4.1) g/dL Albumin/Globulin Ratio (1.0-2.8) Lipase (23-300) U/L Procalcitonin (<0.5) ng/mL TSH (0.47-4.68) uIU/mL Urine Color Yellow Urine Appearance Slightly cloudy Urine pH 5.5 (4.5-8.0) Ur Specific [place] 1.015 (1.000-1.035) Urine Protein 1+ H (Negative) Urine Glucose (UA) Negative (Negative) g/dL Urine Ketones Negative (NEGATIVE) Urine Occult Blood Trace-intact (Negative) Urine Nitrate Positive H (Negative) Urine Bilirubin Negative (NEGATIVE) Urine Urobilinogen 1.0 (0.2) E.U./dL Ur Leukocyte Esterase Trace H (NEGATIVE) Urine RBC 1-5/hpf (0-5/HPF) Urine WBC 5-10/hpf H (0-5/HPF) Ur Squamous Epith Cells 5-10 /hpf H (0-5/HPF) Urine Bacteria Moderate (10-30) H (None) Ur Culture Indicated? Specimen cultured Acetaminophen (10-30) ug/mL Chlamy pneumoniae PCR Not detected (Not Detect) Adenovirus (PCR) Not detected (Not Detect) B. pertussis DNA (PCR) Not detected (Not Detecte) B.parapertussis DNA PCR Not detected (Not Detecte) Coronavirus OC43 (PCR) Not detected (Not Detect) Coronavirus HKU1 (PCR) Not detected (Not Detect) Coronavirus 229E (PCR) Not detected (Not Detect) SARS-CoV-2 (PCR) Not detected (Not Detecte) Coronavirus NL63 (PCR) Not detected (Not Detect) Hepatitis A IgM Ab (Negative) Hep Bs Antigen (Negative) Hep B Core IgM Ab (Negative) Hepatitis C Antibody (Non Reactive) Hep C Ab Signal/Cutoff (.) Human Metapneumovir PCR Not detected (Not Detect) Influenza Type A (PCR) Not detected (Not Detect) Influenza Type B (PCR) Not detected (Not Detect) M. pneumoniae (PCR) Not detected (Not Detect) Parainfluenza 1 (PCR) Not detected (Not Detect) Parainfluenza 2 (PCR) Not detected (Not Detect) Parainfluenza 3 (PCR) Not detected (Not Detect) Parainfluenza 4 (PCR) Not detected (Not Detect) RSV (PCR) Not detected (Not Detect) Entero/Rhino (PCR) Not detected (Not Detect) 09/23/22 09/23/22 09/23/22 Range/Units 11:50 12:29 12:30 WBC (4.5-11.0) X10^3/uL RBC (4.0-5.2) X10^6/uL Hgb (12.0-16.0) g/dL Hct (36-46) % MCV (80-100) fL MCH (26-34) PG MCHC (30-36) % RDW (11.6-14.8) % Plt Count (150-400) X10^3/uL Neut % (Auto) (50-75) % Lymph % (Auto) (25-40) % [place] % (Auto) (3-14) % Eos % (Auto) (2-4) % Baso % (Auto) (0-2) % Neut # (Auto) (8847-1253) /uL Lymph # (Auto) (0399-5516) /uL [place] # (Auto) (0-900) /uL Eos # (Auto) (0-450) /uL Baso # (Auto) (0-100) /uL RBC Morphology Hypochromasia Anisocytosis Microcytosis Stomatocytes PT (10.1-12.7) SECONDS INR (0.9-1.3) D-Dimer (<500) ng/ml ABG pH (7.35-7.45) ABG pCO2 (35-45) mmHg ABG pO2 (80-100) mmHg ABG HCO3 (23-27) mmol/L ABG Total CO2 (23-27) mmol/L ABG O2 Saturation (95-100) % ABG Base Excess (-2-3) mmol/L FiO2 Sodium 134 L (137-145) mmol/L Potassium 5.1 (3.4-5.1) mmol/L Chloride 91 L (98-107) mmol/L Carbon Dioxide 35 H (22-32) mmol/L BUN 28 H (7-17) mg/dL Creatinine 0.76 (0.52-1.04) mg/dL Estimated GFR > 60 (>60) mL/min BUN/Creatinine Ratio 36.8 H (6-22) Glucose 178 H (80-110) mg/dL Lactate 3.8 H (0.7-2.1) mmol/L Calcium 9.2 (8.4-10.2) mg/dL Magnesium (1.6-2.3) mg/dL Total Bilirubin 1.0 (0.2-1.3) mg/dL AST 1998 H (14-36) IU/L ALT 1321 H (<35) IU/L Alkaline Phosphatase 196 H (38-126) U/L Total Creatine Kinase (30-135) U/L CK-MB (CK-2) CK-MB (CK-2) Rel Index Troponin I (0.01-0.034) ng/mL NT-Pro-B Natriuret Pep (<125) pg/mL Total Protein 7.5 (6.3-8.2) g/dL Albumin 3.8 (3.5-5.0) g/dL Globulin 3.7 (1.7-4.1) g/dL Albumin/Globulin Ratio 1.0 (1.0-2.8) Lipase (23-300) U/L Procalcitonin (<0.5) ng/mL TSH (0.47-4.68) uIU/mL Urine Color Urine Appearance Urine pH (4.5-8.0) Ur Specific [place] (1.000-1.035) Urine Protein (Negative) Urine Glucose (UA) (Negative) g/dL Urine Ketones (NEGATIVE) Urine Occult Blood (Negative) Urine Nitrate (Negative) Urine Bilirubin (NEGATIVE) Urine Urobilinogen (0.2) E.U./dL Ur Leukocyte Esterase (NEGATIVE) Urine RBC (0-5/HPF) Urine WBC (0-5/HPF) Ur Squamous Epith Cells (0-5/HPF) Urine Bacteria (None) Ur Culture Indicated? Acetaminophen < 10 (10-30) ug/mL Chlamy pneumoniae PCR (Not Detect) Adenovirus (PCR) (Not Detect) B. pertussis DNA (PCR) (Not Detecte) B.parapertussis DNA PCR (Not Detecte) Coronavirus OC43 (PCR) (Not Detect) Coronavirus HKU1 (PCR) (Not Detect) Coronavirus 229E (PCR) (Not Detect) SARS-CoV-2 (PCR) (Not Detecte) Coronavirus NL63 (PCR) (Not Detect) Hepatitis A IgM Ab (Negative) Hep Bs Antigen (Negative) Hep B Core IgM Ab (Negative) Hepatitis C Antibody (Non Reactive) Hep C Ab Signal/Cutoff (.) Human Metapneumovir PCR (Not Detect) Influenza Type A (PCR) (Not Detect) Influenza Type B (PCR) (Not Detect) M. pneumoniae (PCR) (Not Detect) Parainfluenza 1 (PCR) (Not Detect) Parainfluenza 2 (PCR) (Not Detect) Parainfluenza 3 (PCR) (Not Detect) Parainfluenza 4 (PCR) (Not Detect) RSV (PCR) (Not Detect) Entero/Rhino (PCR) (Not Detect) 09/23/22 09/23/22 Range/Units 12:35 12:35 WBC (4.5-11.0) X10^3/uL RBC (4.0-5.2) X10^6/uL Hgb (12.0-16.0) g/dL Hct (36-46) % MCV (80-100) fL MCH (26-34) PG MCHC (30-36) % RDW (11.6-14.8) % Plt Count (150-400) X10^3/uL Neut % (Auto) (50-75) % Lymph % (Auto) (25-40) % [place] % (Auto) (3-14) % Eos % (Auto) (2-4) % Baso % (Auto) (0-2) % Neut # (Auto) (8226-1397) /uL Lymph # (Auto) (6004-0345) /uL [place] # (Auto) (0-900) /uL Eos # (Auto) (0-450) /uL Baso # (Auto) (0-100) /uL RBC Morphology Hypochromasia Anisocytosis Microcytosis Stomatocytes PT (10.1-12.7) SECONDS INR (0.9-1.3) D-Dimer (<500) ng/ml ABG pH (7.35-7.45) ABG pCO2 (35-45) mmHg ABG pO2 (80-100) mmHg ABG HCO3 (23-27) mmol/L ABG Total CO2 (23-27) mmol/L ABG O2 Saturation (95-100) % ABG Base Excess (-2-3) mmol/L FiO2 Sodium (137-145) mmol/L Potassium (3.4-5.1) mmol/L Chloride (98-107) mmol/L Carbon Dioxide (22-32) mmol/L BUN (7-17) mg/dL Creatinine (0.52-1.04) mg/dL Estimated GFR (>60) mL/min BUN/Creatinine Ratio (6-22) Glucose (80-110) mg/dL Lactate (0.7-2.1) mmol/L Calcium (8.4-10.2) mg/dL Magnesium (1.6-2.3) mg/dL Total Bilirubin (0.2-1.3) mg/dL AST (14-36) IU/L ALT (<35) IU/L Alkaline Phosphatase (38-126) U/L Total Creatine Kinase (30-135) U/L CK-MB (CK-2) CK-MB (CK-2) Rel Index Troponin I (0.01-0.034) ng/mL NT-Pro-B Natriuret Pep (<125) pg/mL Total Protein (6.3-8.2) g/dL Albumin (3.5-5.0) g/dL Globulin (1.7-4.1) g/dL Albumin/Globulin Ratio (1.0-2.8) Lipase (23-300) U/L Procalcitonin (<0.5) ng/mL TSH 3.48 (0.47-4.68) uIU/mL Urine Color Urine Appearance Urine pH (4.5-8.0) Ur Specific [place] (1.000-1.035) Urine Protein (Negative) Urine Glucose (UA) (Negative) g/dL Urine Ketones (NEGATIVE) Urine Occult Blood (Negative) Urine Nitrate (Negative) Urine Bilirubin (NEGATIVE) Urine Urobilinogen (0.2) E.U./dL Ur Leukocyte Esterase (NEGATIVE) Urine RBC (0-5/HPF) Urine WBC (0-5/HPF) Ur Squamous Epith Cells (0-5/HPF) Urine Bacteria (None) Ur Culture Indicated? Acetaminophen (10-30) ug/mL Chlamy pneumoniae PCR (Not Detect) Adenovirus (PCR) (Not Detect) B. pertussis DNA (PCR) (Not Detecte) B.parapertussis DNA PCR (Not Detecte) Coronavirus OC43 (PCR) (Not Detect) Coronavirus HKU1 (PCR) (Not Detect) Coronavirus 229E (PCR) (Not Detect) SARS-CoV-2 (PCR) (Not Detecte) Coronavirus NL63 (PCR) (Not Detect) Hepatitis A IgM Ab Negative (Negative) Hep Bs Antigen Negative (Negative) Hep B Core IgM Ab Negative (Negative) Hepatitis C Antibody Non reactive (Non Reactive) Hep C Ab Signal/Cutoff Comment (.) Human Metapneumovir PCR (Not Detect) Influenza Type A (PCR) (Not Detect) Influenza Type B (PCR) (Not Detect) M. pneumoniae (PCR) (Not Detect) Parainfluenza 1 (PCR) (Not Detect) Parainfluenza 2 (PCR) (Not Detect) Parainfluenza 3 (PCR) (Not Detect) Parainfluenza 4 (PCR) (Not Detect) RSV (PCR) (Not Detect) Entero/Rhino (PCR) (Not Detect) Discharge Plan Departure Patient Disposition: Admitted As Inpatient Clinical Impression: Respiratory failure, acute, CHF (congestive heart failure), Acute hyperkalemia, Abnormal LFTs Admit Date/Time: 09/23/22 14:18 Admit Provider: Mingo Mckee
[2022-09-23 09:52] LABS: Add Manual Diff / Slide Review NO; Basophils Absolute Auto 200 /uL (0-100); Basophils Percent Auto 0.8 % (0-2); Eosinophils Absolute Auto 0 /uL (0-450); Eosinophils Percent Auto 0.1 % (2-4); Hematocrit 32.1 % (36-46); Hemoglobin 9.1 g/dL (12.0-16.0); Lymphocytes Absolute Auto 2000 /uL (1100-4500); Lymphocytes Percent Auto 7.1 % (25-40); Mean Corpuscular HGB Conc 28.5 % (30-36); Mean Corpuscular Hemoglobin 18.6 PG (26-34); Mean Corpuscular Volume 65.4 fL (80-100); Monocytes Absolute Auto 3400 /uL (0-900); Monocytes Percent Auto 12.4 % (3-14); Neutrophils Absolute Auto 22200 /uL (1500-7000); Neutrophils Percent Auto 79.6 % (50-75); Platelet Count 513 X10^3/uL (150-400); Red Cell Distribution Width 19.6 % (11.6-14.8); White Blood Cell Count 27.8 X10^3/uL (4.5-11.0)
[2022-09-23 10:01] LABS: Albumin 3.9 g/dL (3.5-5.0); Alkaline Phosphatase 199 U/L (38-126); BUN Creatinine Ratio 30.4 (6-22); Bilirubin Total 0.9 mg/dL (0.2-1.3); Blood Urea Nitrogen 28 mg/dL (7-17); Calcium 9.2 mg/dL (8.4-10.2); Carbon Dioxide 35 mmol/L (22-32); Chloride 94 mmol/L (98-107); Creatine Kinase 31 U/L (30-135); Estimated Glomerular Filt Rate > 60 mL/min (>60); Globulin 4.1 g/dL (1.7-4.1); Glucose 183 mg/dL (80-110); HEMOLYSIS < 15 (0-50); Lipase 34 U/L (23-300); Magnesium 1.7 mg/dL (1.6-2.3); Sodium 135 mmol/L (137-145)
[2022-09-23 10:02] LABS: Lactate (Lactic Acid) 3.9 mmol/L (0.7-2.1)
[2022-09-23 10:11] LABS: D Dimer 2193 ng/ml (<500)
[2022-09-23 10:13] LABS: NT-proBNP (BNP-Adult 18+) 4010 pg/mL (<125); Troponin I 0.055 ng/mL (0.01-0.034)
[2022-09-23 10:13] LABS: Bilirubin Urine UA NEGATIVE (NEGATIVE); Color Urine UA YELLOW; Glucose Urine UA NEGATIVE (Negative); Ketones Urine UA NEGATIVE (NEGATIVE); Leukocyte Esterase Urine UA TRACE (NEGATIVE); Nitrite Urine UA POSITIVE (Negative); Occult Blood Urine UA TRACE-INTACT (Negative); Protein Urine UA 1+ (Negative); Specific Gravity Urine UA 1.015 (1.000-1.035)
--- NOTE | 2022-09-23 10:15 | DI.CT.S_ITS ---
PROCEDURE: CT ANGIO CHEST PE PROTOCOL INDICATIONS: SOB, hypoxemic, critical Dimer TECHNIQUE: After the administration of intravenous contrast, 2 mm thick sections acquired from the pulmonary apices to the posterior costophrenic angles. MIP reformats of the arterial vasculature were utilized. For radiation dose reduction, the following was used: automated exposure control, adjustment of mA and/or kV according to patient size. COMPARISON: None. FINDINGS: Image quality: Excellent. Pulmonary arteries: Pulmonary arteries are normal in size, and demonstrate no intraluminal filling defects to suggest central pulmonary embolism. Lungs and pleura: Lungs are clear. No pleural effusions or pneumothorax. There is a filling defect in the subsegmental left upper lobe lingular at airway on image 2/63 Mediastinum: Heart size is normal, without pericardial effusion. No mediastinal or hilar adenopathy. Thoracic aorta is normal in caliber and enhancement. Incidental aberrant right subclavian artery Esophagus is normal in caliber, without hiatal hernia. Bones and chest wall: No suspicious bony lesions. Ribs and thoracic spine appear intact throughout. Thyroid gland unremarkable. No axillary or supraclavicular adenopathy. Abdomen: Visualized upper abdominal solid organs appear normal in the early arterial phase of enhancement. IMPRESSION: No evidence of pulmonary embolism, aortic dissection or aneurysm. Probable mucosal plugging of a subsegmental left upper lobe bronchus without associated atelectasis. Lungs otherwise clear. Approved by: Shiva Padgett M.D. on 09/23/2022 at 10:42
[2022-09-23 10:21] LABS: Potassium 5.9 mmol/L (3.4-5.1)
[2022-09-23 10:30] LABS: Appearance Urine UA Slightly Cloudy; pH Urine UA 5.5 (4.5-8.0)
[2022-09-23 10:30] LABS: Anisocytosis 2+
[2022-09-23 10:31] LABS: Hypochromasia 1+; Microcytosis 2+
[2022-09-23 10:32] LABS: Stomatocytes 1+
[2022-09-23] MEDS: PIPERACILLIN/TAZO 4.5 GM in SODIUM CHLORIDE 0.9% 100 ML IV (10:33)
[2022-09-23] MEDS: FAMOTIDINE 20 MG/2 ML VIAL IV (10:33)
[2022-09-23 10:34] LABS: RBC Urine 1-5/HPF (0-5/HPF); WBC Urine 5-10/HPF (0-5/HPF)
[2022-09-23 10:35] LABS: Bacteria Urine Moderate (10-30); Culture Indicated Urine Specimen Cultured; Squamous Epithelial Cell Urine 5-10 /HPF (0-5/HPF)
[2022-09-23] MEDS: methylPREDNISolone 125 MG/2 ML VIAL IV (10:35)
[2022-09-23] MEDS: diphenhydrAMINE 50 MG/ML VIAL 25 MG IV (10:35)
[2022-09-23 10:42] LABS: Alanine Aminotransferase 1139 IU/L (<35); Aspartate Aminotransferase 1693 IU/L (14-36)
--- NOTE | 2022-09-23 10:49 | DI.CT.S_ITS ---
PROCEDURE: CT ABDOMEN PELVIS W CON INDICATIONS: septic, LFTs TECHNIQUE: After the administration of intravenous contrast, axial sections acquired from the lung bases to the pubic symphysis. Coronal and sagittal reformats were performed. For radiation dose reduction, the following was used: automated exposure control, adjustment of mA and/or kV according to patient size. COMPARISON: None. FINDINGS: Image quality: Excellent. Lung bases: Unremarkable. Heart: Enlarged ABDOMEN: Liver: Liver is enlarged measuring 20 cm. No focal mass lesion. Portal vein is patent. Gallbladder: Cholecystectomy Biliary ducts: Unremarkable. Pancreas: Unremarkable. Spleen: Unremarkable. Adrenal Glands: Prominent left adrenal gland may reflect hyperplasia Kidneys and Ureters: Unremarkable. Stomach and Bowel: Stomach, small bowel loops, and colon are unremarkable. Peritoneum: No abnormal intraperitoneal fluid. No free air. Ventral Wall: No hernias. Abdominal Nodes: No retroperitoneal or mesenteric adenopathy by size criteria. Vessels: Aorta and inferior vena cava are normal in size. PELVIS: Pelvic Organs: Unremarkable. Bladder: Fagan catheter in the decompressed bladder is noted Pelvic Nodes: No enlarged lymph nodes. Miscellaneous: No hernias are seen. Bones: Unremarkable. IMPRESSION: No acute findings. No evidence of abscess or inflammatory change. Hepatomegaly, cholecystectomy. Probable mild left adrenal gland hyperplasia Approved by: Shiva Padgett M.D. on 09/23/2022 at 10:31
--- NOTE | 2022-09-23 11:16 | PC.NURSE ---
Patient return from CT on 3L O2. Sats drop to mid 80s. Bipap restarted.
[2022-09-23 11:43] LABS: Reflexed Lactate in 2 Hours Y
[2022-09-23 11:48] LABS: Adenovirus Not Detected (Not Detect); B. parapertussis Not Detected (Not Detecte); Bordetella pertussis Not Detected (Not Detecte); Chlamydophila pneumoniae Not Detected (Not Detect); Coronavirus 229E Not Detected (Not Detect); Coronavirus HKU1 Not Detected (Not Detect); Coronavirus NL 63 Not Detected (Not Detect); Coronavirus OC43 Not Detected (Not Detect); Human Metapneumovirus Not Detected (Not Detect); Human Rhinovirus/Enterovirus Not Detected (Not Detect); Influenza A Not Detected (Not Detect); Influenza B Not Detected (Not Detect); Mycoplasma pneumoniae Not Detected (Not Detect); Parainfluenza Virus 1 Not Detected (Not Detect); Parainfluenza Virus 2 Not Detected (Not Detect); Parainfluenza Virus 3 Not Detected (Not Detect); Parainfluenza Virus 4 Not Detected (Not Detect); Respiratory Syncytial Virus Not Detected (Not Detect); SARS- CoV-2 Not Detected (Not Detecte)
[2022-09-23 12:09] LABS: Lactate 2HR (Lactic Acid Rflx) 3.8 mmol/L (0.7-2.1)
--- NOTE | 2022-09-23 12:13 | PC.NURSE ---
Patient changed to high flow O2 by RT. tolerating well
[2022-09-23 12:49] LABS: INR 1.5 (0.9-1.3); Prothrombin Time 17.6 SECONDS (10.1-12.7)
[2022-09-23 12:58] LABS: Albumin 3.8 g/dL (3.5-5.0); Alkaline Phosphatase 196 U/L (38-126); BUN Creatinine Ratio 36.8 (6-22); Blood Urea Nitrogen 28 mg/dL (7-17); Calcium 9.2 mg/dL (8.4-10.2); Carbon Dioxide 35 mmol/L (22-32); Chloride 91 mmol/L (98-107); Estimated Glomerular Filt Rate > 60 mL/min (>60); Globulin 3.7 g/dL (1.7-4.1); Glucose 178 mg/dL (80-110); HEMOLYSIS < 15 (0-50); Potassium 5.1 mmol/L (3.4-5.1); Sodium 134 mmol/L (137-145); Total Protein 7.5 g/dL (6.3-8.2)
[2022-09-23 12:58] LABS: Acetaminophen < 10 ug/mL (10-30)
[2022-09-23 13:12] LABS: Alanine Aminotransferase 1321 IU/L (<35); Aspartate Aminotransferase 1998 IU/L (14-36)
--- NOTE | 2022-09-23 14:37 | DI.ECHO.S_ITS ---
[facility] +---------+ [facility] +---------+ : : [address] : : : : [id number] : : : : Phone: [phone] Echocardiogram Report + + :Name: MITRA VERMA Study Date: 09/24/2022 Height: 64 in : :[facility] ReadingLocation: Weight: 260 lb : : Gender: Female BSA: 2.2 m2 : :: 1960 Age: 62 yrs BP: 163/72 mmHg: :Reason For Study: CONGESTIVE HEART FAILURE EXACERBATION : :Ordering Physician: YAAKOV, : :RACHEL Lindsay Performed By: Sheeba Kerr : :Referring: RACHEL NUNO : + + Interpretation Summary The ejection fraction is estimated to be 60-65%. Grade II diastolic dysfunction. The right ventricular systolic function is normal. The right ventricular systolic pressure is estimated to be at least 63 mmHg based on an estimated right atrial pressure of 15 mm Hg. There is mild to moderate tricuspid regurgitation. Both atria are normal in size. There is mild mitral stenosis. There is mild aortic stenosis. Procedure: A two-dimensional transthoracic echocardiogram with color flow and Doppler was performed. The study quality was technically difficult. Comparison is made with the echocardiogram of 07/09/2020. The heart rate ranged between 99-114 bpm during the study. Left Ventricle: The left ventricle is normal in size and wall thickness. The ejection fraction is estimated to be 60-65%. There are no obvious focal wall motion abnormalities noted but poor endocardial definition reduces the sensitivity for the detection of such. Grade II diastolic dysfunction. Right Ventricle: The right ventricle is at the upper limits of normal in size. The right ventricular systolic function is normal. Atria: The left atrial size is normal. Both atria are normal in size. Right atrial size is normal. There is no Doppler evidence for an interatrial shunt. Mitral Valve: Calcified mitral apparatus causing mitral stenosis. The mitral valve leaflets are mildly calcified. The mitral valve mean gradient is 6.1 mmHg. There is mild mitral stenosis. There is trace mitral regurgitation. Aortic Valve: The aortic valve opens well. The peak aortic velocity is 2.1 m/sec. The aortic valve mean gradient is 9 mmHg. The calculated aortic valve area is 1.6 cm2. There is mild aortic stenosis. No aortic regurgitation is present. Tricuspid Valve: The tricuspid valve is not well visualized. There is mild to moderate tricuspid regurgitation. The right ventricular systolic pressure is estimated to be at least 63 mmHg based on an estimated right atrial pressure of 15 mm Hg. Pulmonic Valve: The pulmonic valve is not well visualized. There is no pulmonic valvular regurgitation. Great Vessels: The aortic root is normal size. The dimensions of the ascending aorta are normal. The IVC is dilated (diameter is greater than 2.1 cm) and it collapses less than 50% with a sniff. This suggests a high right atrial pressure of 15 mm Hg. Pericardium/ Pleura There is no pericardial effusion. There is no pleural effusion. MMode/2D Measurements & Calculations LVIDd: 4.5 cm LVOT diam: 1.9 cm LVIDs: 2.9 cm Ao root diam: 3.0 cm FS: 35.6 % asc Aorta Diam: 3.2 cm IVSd: 0.86 cm LVPWd: 0.96 cm LV nash. diameter/BSA (cm/m^2): 2.1 LV sys. diameter/BSA (cm/m^2): 1.3 LA A2 area: 18.7 cm2 RA long axis: 4.5 cm LA A4 area: 15.9 cm2 RA area: 14.2 cm2 LA length (vol): 6.1 cm RA vol: 37.8 ml LA vol: 41.5 ml RA : 17.3 ml/m2 LA vol index: 19.0 ml/m2 IVC diam: 2.4 cm RVD1 (basal): 4.1 cm RVD2 (mid): 3.3 cm TAPSE: 1.8 cm Doppler Measurements & Calculations Ao V2 max: 208.9 cm/sec LVOT Max Juan [place]: 113.2 cm/sec Ao V2 mean: 140.9 cm/sec LV V1 max P.1 mmHg Ao max P.7 mmHg LV V1 VTI: 21.0 cm Ao mean P.3 mmHg RENATE(I,D): 2.0 cm2 Ao V2 VTI: 30.3 cm RENATE(V,D): 1.6 cm2 sev ratio: 0.69 RENATE indexed to BSA (cm^2/m^2): 0.94 MV E max juan francisco: 123.0 cm/sec TR max juan francisco: 344.6 cm/sec MV A max juan francisco: 168.3 cm/sec TR max P.5 mmHg MV E/A: 0.73 PA V2 max: 106.7 cm/sec Med Peak E' Juan Francisco: 6.0 cm/sec PA V2 mean: 75.7 cm/sec E/E' med: 20.7 PA mean P.6 mmHg Lat Peak E' [place]: 5.2 cm/sec PA pr(Accel): 52.0 mmHg E/E' lat: 23.5 E/e' average: 22.1 MV dec time: 0.34 sec MVA(VTI): 1.6 cm2 MV V2 mean: 113.4 cm/sec SV(LVOT): 62.0 ml MV mean P.1 mmHg MV V2 VTI: 38.4 cm Reading Physician:FRANK
--- NOTE | 2022-09-23 14:46 | P.HP_ITS ---
History of Present Illness History of Present Illness Chief complaint: Weakness, r/o UTI Narrative: ?Ariana Causey is a 62yo F with PMH of HTN, HLD, morbid obesity, type 2 diabetes with chronic foot wounds followed by wound care, peripheral vascular disease, prior CVA, probable COPD, and active smoker?who presents from [facility] with worsening fatigue, dyspnea and lethargy. Patient is a poor historian so history suppplemented from the ED notes. Apparently she has been gaining lots of water weight in her face and legs and hasn't been taking her lasix. She apparently is up 50lbs from prior admission. Patient says she is breathing much easier on the HFNC and sitting up, as her SOB increases when she lies flat. In the ED patient found to be hypoxic to 62% so was put on Bipap. This was weaned to HFNC as patient had trouble tolerating the mask. Vitals were stable. Labs showed LA of 3.9, AST 1693 and ALT 1139. Tylenol level normal. INR 1.5. Potassium 5.9 then improved to 5.1. ABG showed pH 7.34, pCO2 56 and pO2 92, bicarb 30. PFSH Medical History CHF (congestive heart failure) Diabetes Hyperlipidemia Hypertension Peripheral neuropathy PVD (peripheral vascular disease) TIA (transient ischemic attack) Surgical History H/O angioplasty History of cholecystectomy Social History household members: caregiver Smoking Status: Current every day smoker alcohol intake: never Meds Home Medications and Allergies Home Medications Medication Instructions Recorded Confirmed Type acetaminophen 500 mg tablet 1 - 2 tab PO PRN PRN pain/ fever 12/28/16 09/23/22 History (Tylenol Extra Strength) ##0 cyclobenzaprine 10 mg tablet 10 mg PO BID ##0 12/28/16 09/23/22 History furosemide 20 mg tablet 20 mg PO QDAY ##0 12/28/16 09/23/22 History atorvastatin 80 mg tablet 80 mg PO DAILY 07/08/20 09/23/22 History clopidogrel 75 mg tablet 75 mg PO DAILY 07/08/20 09/23/22 History liraglutide 0.6 mg/0.1 mL (18 mg/3 1.8 mg SUBCUT QWEEK 07/08/20 09/23/22 History mL) subcutaneous pen injector (Victoza 3-Nicho) zolpidem 10 mg tablet 10 mg PO QPM 07/08/20 09/23/22 History citalopram 40 mg tablet 40 mg PO DAILY #30 tabs 07/12/20 09/23/22 Rx acetaminophen 300 mg-codeine 30 mg 1 tab PO Q6H PRN Pain (Scale Score 09/23/22 09/23/22 History tablet 4-6) albuterol 90 mcg/actuation aerosol 2 mcg inhalation Q4H PRN shortness 09/23/22 09/23/22 History inhaler of breath calcium carbonate 300 mg (750 mg) 300 mg PO BID PRN Dyspepsia 09/23/22 09/23/22 History chewable tablet (Calcium Antacid) famotidine 20 mg tablet 20 mg PO DAILY 09/23/22 09/23/22 History fluticasone propionate 50 1 spray intranasal DAILY 09/23/22 09/23/22 History mcg/actuation nasal spray,suspension (Allergy Relief (fluticasone)) insulin detemir U-100 100 unit/mL 60 unit SUBCUT BEDTIME 09/23/22 09/23/22 History (3 mL) subcutaneous pen (Levemir FlexPen) loperamide 2 mg capsule 2 mg PO Q6H PRN Diarrhea 09/23/22 09/23/22 History meclizine 25 mg tablet 25 mg PO TID 09/23/22 09/23/22 History mirtazapine 7.5 mg tablet 7.5 mg PO BEDTIME 09/23/22 09/23/22 History mupirocin 2 % topical ointment 1 applic topical DAILY 09/23/22 09/23/22 History nystatin 100,000 unit/gram topical 1 applic topical BID 09/23/22 09/23/22 History powder ondansetron 4 mg disintegrating 4 mg PO Q6H PRN Nausea 09/23/22 09/23/22 History tablet polyethylene glycol 3350 17 gram 17 g PO DAILY PRN Constipation 09/23/22 09/23/22 History oral powder packet (Miralax) Allergies Allergy/AdvReac Type Severity Reaction Status Date / Time Sulfa (Sulfonamide Allergy Intermediate RASH Verified 09/23/22 10:26 Antibiotics) hydrocodone Allergy Unknown ITCH Verified 09/23/22 10:26 Review of Systems Review of Systems Narrative: All other systems reviewed with the patient and are negative unless otherwise stated. Exam Vital Signs (past 8 hours): - 09/23/22 09:25 09/23/22 09:18 09/23/22 09:19 Temperature 98.6 F Pulse Rate 98 H 54 L Respiratory Rate 26 H Blood Pressure 121/76 121/76 Pulse Oximetry 75 L 62 L Oxygen Delivery Method Room Air Oxygen Flow Rate Fraction of Inspired Oxygen 09/23/22 09:19 09/23/22 09:20 09/23/22 09:21 Temperature Pulse Rate 65 98 H 98 H Respiratory Rate 34 H Blood Pressure Pulse Oximetry 63 L 75 L 73 L Oxygen Delivery Method Oxygen Flow Rate Fraction of Inspired Oxygen 09/23/22 09:22 09/23/22 09:23 09/23/22 09:24 Temperature Pulse Rate 98 H 98 H 97 H Respiratory Rate 34 H 29 H 35 H Blood Pressure Pulse Oximetry 76 L 74 L 77 L Oxygen Delivery Method Oxygen Flow Rate Fraction of Inspired Oxygen 09/23/22 09:25 09/23/22 09:26 09/23/22 09:27 Temperature Pulse Rate 97 H 96 H 96 H Respiratory Rate 35 H 31 H 31 H Blood Pressure Pulse Oximetry 88 L 90 L 90 L Oxygen Delivery Method Nasal Cannula Oxygen Flow Rate 3 Fraction of Inspired Oxygen 09/23/22 09:28 09/23/22 09:29 09/23/22 09:30 Temperature Pulse Rate 96 H 96 H 96 H Respiratory Rate 31 H 30 H 31 H Blood Pressure Pulse Oximetry 93 95 94 Oxygen Delivery Method Oxygen Flow Rate Fraction of Inspired Oxygen 09/23/22 09:31 09/23/22 09:32 09/23/22 09:33 Temperature Pulse Rate 96 H 96 H 96 H Respiratory Rate 29 H 29 H 30 H Blood Pressure Pulse Oximetry 95 96 96 Oxygen Delivery Method Oxygen Flow Rate Fraction of Inspired Oxygen 09/23/22 09:34 09/23/22 09:35 09/23/22 09:36 Temperature Pulse Rate 95 H 95 H 96 H Respiratory Rate 32 H 32 H 32 H Blood Pressure Pulse Oximetry 95 95 95 Oxygen Delivery Method Oxygen Flow Rate Fraction of Inspired Oxygen 09/23/22 09:37 09/23/22 09:37 09/23/22 09:38 Temperature Pulse Rate 95 H 95 H Respiratory Rate 29 H 30 H Blood Pressure 179/74 H Pulse Oximetry 95 96 Oxygen Delivery Method Nasal Cannula Oxygen Flow Rate 3 Fraction of Inspired Oxygen 09/23/22 09:39 09/23/22 09:40 09/23/22 09:40 Temperature Pulse Rate 96 H 96 H Respiratory Rate 30 H 31 H Blood Pressure 161/74 H Pulse Oximetry 96 95 Oxygen Delivery Method Oxygen Flow Rate Fraction of Inspired Oxygen 09/23/22 09:41 09/23/22 09:42 09/23/22 09:43 Temperature Pulse Rate 96 H 96 H Respiratory Rate 34 H 34 H Blood Pressure 166/74 H Pulse Oximetry 94 93 Oxygen Delivery Method Oxygen Flow Rate Fraction of Inspired Oxygen 09/23/22 09:43 09/23/22 09:44 09/23/22 09:44 Temperature Pulse Rate 96 H 96 H Respiratory Rate 30 H 32 H Blood Pressure 163/74 H Pulse Oximetry 94 95 Oxygen Delivery Method Oxygen Flow Rate Fraction of Inspired Oxygen 09/23/22 09:45 09/23/22 09:45 09/23/22 09:46 Temperature Pulse Rate 96 H 96 H Respiratory Rate 32 H 34 H Blood Pressure 180/100 H Pulse Oximetry 94 94 Oxygen Delivery Method Nasal Cannula Oxygen Flow Rate 3 Fraction of Inspired Oxygen 09/23/22 09:47 09/23/22 09:47 09/23/22 09:48 Temperature Pulse Rate 96 H Respiratory Rate 36 H Blood Pressure 165/74 H 154/82 H Pulse Oximetry 92 Oxygen Delivery Method Oxygen Flow Rate Fraction of Inspired Oxygen 09/23/22 09:48 09/23/22 10:01 09/23/22 09:49 Temperature Pulse Rate 96 H 96 H Respiratory Rate 34 H 32 H Blood Pressure 149/73 H Pulse Oximetry 90 L 92 Oxygen Delivery Method Nasal Cannula Oxygen Flow Rate 3 Fraction of Inspired Oxygen 35 09/23/22 09:49 09/23/22 09:50 09/23/22 09:50 Temperature Pulse Rate 96 H Respiratory Rate 33 H Blood Pressure 150/84 H 156/83 H Pulse Oximetry 91 Oxygen Delivery Method Nasal Cannula Oxygen Flow Rate 3 Fraction of Inspired Oxygen 09/23/22 09:51 09/23/22 09:51 09/23/22 09:52 Temperature Pulse Rate 96 H Respiratory Rate 37 H Blood Pressure 151/84 H 146/81 H Pulse Oximetry 90 L Oxygen Delivery Method Oxygen Flow Rate Fraction of Inspired Oxygen 09/23/22 09:53 09/23/22 09:54 09/23/22 09:55 Temperature Pulse Rate Respiratory Rate Blood Pressure 147/78 H 143/77 H 142/79 H Pulse Oximetry Oxygen Delivery Method Oxygen Flow Rate Fraction of Inspired Oxygen 09/23/22 09:55 09/23/22 09:56 09/23/22 09:57 Temperature Pulse Rate 97 H Respiratory Rate 31 H Blood Pressure 145/78 H 148/74 H Pulse Oximetry 95 Oxygen Delivery Method Oxygen Flow Rate Fraction of Inspired Oxygen 09/23/22 09:57 09/23/22 09:58 09/23/22 09:58 Temperature Pulse Rate 96 H 95 H Respiratory Rate 29 H 29 H Blood Pressure 147/74 H Pulse Oximetry 95 94 Oxygen Delivery Method Oxygen Flow Rate Fraction of Inspired Oxygen 09/23/22 09:59 09/23/22 09:59 09/23/22 10:00 Temperature Pulse Rate 95 H Respiratory Rate 27 H Blood Pressure 150/84 H 148/83 H Pulse Oximetry 95 Oxygen Delivery Method Oxygen Flow Rate Fraction of Inspired Oxygen 09/23/22 10:00 09/23/22 10:02 09/23/22 10:02 Temperature Pulse Rate 93 H 96 H Respiratory Rate 31 H 29 H Blood Pressure 149/63 H Pulse Oximetry 95 95 Oxygen Delivery Method Oxygen Flow Rate Fraction of Inspired Oxygen 09/23/22 10:03 09/23/22 10:03 09/23/22 10:04 Temperature Pulse Rate 94 H Respiratory Rate 32 H Blood Pressure 148/70 H 149/73 H Pulse Oximetry 95 Oxygen Delivery Method Oxygen Flow Rate Fraction of Inspired Oxygen 09/23/22 10:04 09/23/22 10:05 09/23/22 10:19 Temperature Pulse Rate 93 H 92 H Respiratory Rate 29 H 31 H Blood Pressure 149/73 H 141/70 H Pulse Oximetry 96 96 Oxygen Delivery Method Oxygen Flow Rate Fraction of Inspired Oxygen 09/23/22 10:20 09/23/22 10:20 09/23/22 10:21 Temperature Pulse Rate 92 H Respiratory Rate 27 H Blood Pressure 141/70 H 139/71 Pulse Oximetry 96 Oxygen Delivery Method Oxygen Flow Rate Fraction of Inspired Oxygen 09/23/22 10:09/23/22 10:22 09/23/22 10:22 Temperature Pulse Rate 93 H 92 H Respiratory Rate 32 H 27 H Blood Pressure 132/72 Pulse Oximetry 96 95 Oxygen Delivery Method Oxygen Flow Rate Fraction of Inspired Oxygen 09/23/22 10:23 09/23/22 10:23 09/23/22 10:24 Temperature Pulse Rate 93 H Respiratory Rate 28 H Blood Pressure 141/70 H 142/72 H Pulse Oximetry 96 Oxygen Delivery Method Oxygen Flow Rate Fraction of Inspired Oxygen 09/23/22 10:24 09/23/22 10:25 09/23/22 10:25 Temperature Pulse Rate 91 H 91 H Respiratory Rate 29 H 29 H Blood Pressure 142/71 H Pulse Oximetry 96 96 Oxygen Delivery Method Oxygen Flow Rate Fraction of Inspired Oxygen 09/23/22 10:26 09/23/22 10:26 09/23/22 10:27 Temperature Pulse Rate 91 H Respiratory Rate 28 H Blood Pressure 140/72 137/69 Pulse Oximetry 95 Oxygen Delivery Method Oxygen Flow Rate Fraction of Inspired Oxygen 09/23/22 10:27 09/23/22 10:28 09/23/22 10:28 Temperature Pulse Rate 91 H 91 H Respiratory Rate 30 H 29 H Blood Pressure 137/69 Pulse Oximetry 94 94 Oxygen Delivery Method Oxygen Flow Rate Fraction of Inspired Oxygen 09/23/22 10:29 09/23/22 10:29 09/23/22 10:30 Temperature Pulse Rate 90 Respiratory Rate 29 H Blood Pressure 135/66 132/68 Pulse Oximetry 94 Oxygen Delivery Method Oxygen Flow Rate Fraction of Inspired Oxygen 09/23/22 10:30 09/23/22 10:31 09/23/22 10:31 Temperature Pulse Rate 90 91 H Respiratory Rate 29 H 34 H Blood Pressure 137/71 Pulse Oximetry 93 94 Oxygen Delivery Method Oxygen Flow Rate Fraction of Inspired Oxygen 09/23/22 10:32 09/23/22 10:32 09/23/22 10:33 Temperature Pulse Rate 92 H Respiratory Rate 34 H Blood Pressure 137/74 131/74 Pulse Oximetry 93 Oxygen Delivery Method Oxygen Flow Rate Fraction of Inspired Oxygen 09/23/22 10:33 09/23/22 10:35 09/23/22 10:35 Temperature Pulse Rate 91 H 91 H Respiratory Rate 30 H 30 H Blood Pressure 135/75 Pulse Oximetry 93 93 Oxygen Delivery Method Oxygen Flow Rate Fraction of Inspired Oxygen 09/23/22 10:40 09/23/22 10:40 09/23/22 10:45 Temperature Pulse Rate 91 H Respiratory Rate 31 H Blood Pressure 145/79 H 140/76 Pulse Oximetry 94 Oxygen Delivery Method Oxygen Flow Rate Fraction of Inspired Oxygen 09/23/22 10:45 09/23/22 10:50 09/23/22 10:50 Temperature Pulse Rate 91 H 91 H Respiratory Rate 33 H 37 H Blood Pressure 145/74 H Pulse Oximetry 92 Oxygen Delivery Method Oxygen Flow Rate Fraction of Inspired Oxygen 09/23/22 11:06 09/23/22 11:09 09/23/22 11:09 Temperature Pulse Rate 92 H Respiratory Rate 30 H Blood Pressure 140/87 Pulse Oximetry 100 88 L Oxygen Delivery Method Oxygen Flow Rate Fraction of Inspired Oxygen 09/23/22 11:10 09/23/22 11:10 09/23/22 11:15 Temperature Pulse Rate 91 H 88 Respiratory Rate 30 H 28 H Blood Pressure 151/94 H Pulse Oximetry 91 96 Oxygen Delivery Method Oxygen Flow Rate Fraction of Inspired Oxygen 09/23/22 11:15 09/23/22 11:20 09/23/22 11:20 Temperature Pulse Rate 89 Respiratory Rate 29 H Blood Pressure 159/91 H 156/89 H Pulse Oximetry 95 Oxygen Delivery Method Oxygen Flow Rate Fraction of Inspired Oxygen 09/23/22 11:25 09/23/22 11:25 09/23/22 11:30 Temperature Pulse Rate 89 Respiratory Rate 30 H Blood Pressure 173/90 H 161/85 H Pulse Oximetry 97 Oxygen Delivery Method Oxygen Flow Rate Fraction of Inspired Oxygen 09/23/22 11:30 09/23/22 11:35 09/23/22 11:35 Temperature Pulse Rate 89 86 Respiratory Rate 29 H 29 H Blood Pressure 163/96 H Pulse Oximetry 95 96 Oxygen Delivery Method Oxygen Flow Rate Fraction of Inspired Oxygen 09/23/22 11:45 09/23/22 11:45 09/23/22 12:00 Temperature Pulse Rate 92 H Respiratory Rate 28 H Blood Pressure 160/74 H 150/61 H Pulse Oximetry 90 L Oxygen Delivery Method Oxygen Flow Rate Fraction of Inspired Oxygen 09/23/22 12:00 09/23/22 12:40 09/23/22 12:15 Temperature Pulse Rate 91 H 91 H Respiratory Rate 31 H 28 H Blood Pressure 150/61 H 163/75 H Pulse Oximetry 83 L 93 Oxygen Delivery Method Oxygen Flow Rate Fraction of Inspired Oxygen 09/23/22 12:15 09/23/22 12:30 09/23/22 12:30 Temperature Pulse Rate 90 91 H Respiratory Rate 27 H 29 H Blood Pressure 166/87 H Pulse Oximetry 93 95 Oxygen Delivery Method Oxygen Flow Rate Fraction of Inspired Oxygen 09/23/22 12:45 09/23/22 12:45 09/23/22 13:00 Temperature Pulse Rate 91 H Respiratory Rate 27 H Blood Pressure 171/94 H 154/72 H Pulse Oximetry 97 Oxygen Delivery Method Oxygen Flow Rate Fraction of Inspired Oxygen 09/23/22 13:00 09/23/22 13:15 09/23/22 13:15 Temperature Pulse Rate 90 86 Respiratory Rate 27 H 27 H Blood Pressure 135/64 Pulse Oximetry 94 95 Oxygen Delivery Method Oxygen Flow Rate Fraction of Inspired Oxygen 09/23/22 13:30 09/23/22 13:30 09/23/22 13:45 Temperature Pulse Rate 85 89 Respiratory Rate 23 22 Blood Pressure 140/65 Pulse Oximetry 92 92 Oxygen Delivery Method Oxygen Flow Rate Fraction of Inspired Oxygen 09/23/22 13:45 Temperature Pulse Rate Respiratory Rate Blood Pressure 163/72 H Pulse Oximetry Oxygen Delivery Method Oxygen Flow Rate Fraction of Inspired Oxygen Fraction of Inspired Oxygen 35 Oxygen Delivery Method Nasal Cannula Oxygen Flow Rate 3 Narrative Exam Narrative: GEN: no acute distress, on HFNC, chronically ill appearing HEENT: moist mucous membranes, PERRL NECK: trachea midline, no JVD CV: regular rate and rhythm, no murmurs PULM: bibasilar rales ABD: soft, nontender, nondistended, no organomegaly EXT: warm and well perfused, 2+ pitting edema of LE's to knees NEURO: awake, alert, oriented, no focal deficits Objective Labs 09/23/22 09:25 09/23/22 12:29 Labs: Laboratory Results - last 24 hr 09/23/22 09/23/22 09/23/22 09:25 09:25 09:25 WBC 27.8 H RBC 4.90 Hgb 9.1 L Hct 32.1 L MCV 65.4 L MCH 18.6 L MCHC 28.5 L RDW 19.6 H Plt Count 513 H Neut % (Auto) 79.6 H Lymph % (Auto) 7.1 L [place] % (Auto) 12.4 Eos % (Auto) 0.1 L Baso % (Auto) 0.8 Neut # (Auto) 80540 H Lymph # (Auto) 2000 [place] # (Auto) 3400 H Eos # (Auto) 0 Baso # (Auto) 200 H RBC Morphology See below Hypochromasia 1+ H Anisocytosis 2+ H Microcytosis 2+ H Stomatocytes 1+ H PT INR D-Dimer ABG pH ABG pCO2 ABG pO2 ABG HCO3 ABG Total CO2 ABG O2 Saturation ABG Base Excess FiO2 Sodium 135 L Potassium 5.9 H Chloride 94 L Carbon Dioxide 35 H BUN 28 H Creatinine 0.92 Estimated GFR > 60 BUN/Creatinine Ratio 30.4 H Glucose 183 H Lactate 3.9 H Calcium 9.2 Magnesium 1.7 Total Bilirubin 0.9 AST 1693 H ALT 1139 H Alkaline Phosphatase 199 H Total Creatine Kinase 31 CK-MB (CK-2) TNP CK-MB (CK-2) Rel Index TNP Troponin I 0.055 H NT-Pro-B Natriuret Pep 4010 H Total Protein 8.0 Albumin 3.9 Globulin 4.1 Albumin/Globulin Ratio 1.0 Lipase 34 Urine Color Urine Appearance Urine pH Ur Specific [place] Urine Protein Urine Glucose (UA) Urine Ketones Urine Occult Blood Urine Nitrate Urine Bilirubin Urine Urobilinogen Ur Leukocyte Esterase Urine RBC Urine WBC Ur Squamous Epith Cells Urine Bacteria Ur Culture Indicated? Acetaminophen Chlamy pneumoniae PCR Adenovirus (PCR) B. pertussis DNA (PCR) B.parapertussis DNA PCR Coronavirus OC43 (PCR) Coronavirus HKU1 (PCR) Coronavirus 229E (PCR) SARS-CoV-2 (PCR) Coronavirus NL63 (PCR) Human Metapneumovir PCR Influenza Type A (PCR) Influenza Type B (PCR) M. pneumoniae (PCR) Parainfluenza 1 (PCR) Parainfluenza 2 (PCR) Parainfluenza 3 (PCR) Parainfluenza 4 (PCR) RSV (PCR) Entero/Rhino (PCR) 09/23/22 09/23/22 09/23/22 09:25 09:35 09:50 WBC RBC Hgb Hct MCV MCH MCHC RDW Plt Count Neut % (Auto) Lymph % (Auto) [place] % (Auto) Eos % (Auto) Baso % (Auto) Neut # (Auto) Lymph # (Auto) [place] # (Auto) Eos # (Auto) Baso # (Auto) RBC Morphology Hypochromasia Anisocytosis Microcytosis Stomatocytes PT INR D-Dimer 2193 H ABG pH 7.34 L ABG pCO2 56.0 H ABG pO2 92 ABG HCO3 30 H ABG Total CO2 32 H ABG O2 Saturation 96 ABG Base Excess 4.0 H FiO2 34 Sodium Potassium Chloride Carbon Dioxide BUN Creatinine Estimated GFR BUN/Creatinine Ratio Glucose Lactate Calcium Magnesium Total Bilirubin AST ALT Alkaline Phosphatase Total Creatine Kinase CK-MB (CK-2) CK-MB (CK-2) Rel Index Troponin I NT-Pro-B Natriuret Pep Total Protein Albumin Globulin Albumin/Globulin Ratio Lipase Urine Color Yellow Urine Appearance Slightly cloudy Urine pH 5.5 Ur Specific [place] 1.015 Urine Protein 1+ H Urine Glucose (UA) Negative Urine Ketones Negative Urine Occult Blood Trace-intact Urine Nitrate Positive H Urine Bilirubin Negative Urine Urobilinogen 1.0 Ur Leukocyte Esterase Trace H Urine RBC 1-5/hpf Urine WBC 5-10/hpf H Ur Squamous Epith Cells 5-10 /hpf H Urine Bacteria Moderate (10-30) H Ur Culture Indicated? Specimen cultured Acetaminophen Chlamy pneumoniae PCR Adenovirus (PCR) B. pertussis DNA (PCR) B.parapertussis DNA PCR Coronavirus OC43 (PCR) Coronavirus HKU1 (PCR) Coronavirus 229E (PCR) SARS-CoV-2 (PCR) Coronavirus NL63 (PCR) Human Metapneumovir PCR Influenza Type A (PCR) Influenza Type B (PCR) M. pneumoniae (PCR) Parainfluenza 1 (PCR) Parainfluenza 2 (PCR) Parainfluenza 3 (PCR) Parainfluenza 4 (PCR) RSV (PCR) Entero/Rhino (PCR) 09/23/22 09/23/22 09/23/22 09:50 09:50 11:50 WBC RBC Hgb Hct MCV MCH MCHC RDW Plt Count Neut % (Auto) Lymph % (Auto) [place] % (Auto) Eos % (Auto) Baso % (Auto) Neut # (Auto) Lymph # (Auto) [place] # (Auto) Eos # (Auto) Baso # (Auto) RBC Morphology Hypochromasia Anisocytosis Microcytosis Stomatocytes PT 17.6 H INR 1.5 H D-Dimer ABG pH ABG pCO2 ABG pO2 ABG HCO3 ABG Total CO2 ABG O2 Saturation ABG Base Excess FiO2 Sodium Potassium Chloride Carbon Dioxide BUN Creatinine Estimated GFR BUN/Creatinine Ratio Glucose Lactate 3.8 H Calcium Magnesium Total Bilirubin AST ALT Alkaline Phosphatase Total Creatine Kinase CK-MB (CK-2) CK-MB (CK-2) Rel Index Troponin I NT-Pro-B Natriuret Pep Total Protein Albumin Globulin Albumin/Globulin Ratio Lipase Urine Color Urine Appearance Urine pH Ur Specific [place] Urine Protein Urine Glucose (UA) Urine Ketones Urine Occult Blood Urine Nitrate Urine Bilirubin Urine Urobilinogen Ur Leukocyte Esterase Urine RBC Urine WBC Ur Squamous Epith Cells Urine Bacteria Ur Culture Indicated? Acetaminophen Chlamy pneumoniae PCR Not detected Adenovirus (PCR) Not detected B. pertussis DNA (PCR) Not detected B.parapertussis DNA PCR Not detected Coronavirus OC43 (PCR) Not detected Coronavirus HKU1 (PCR) Not detected Coronavirus 229E (PCR) Not detected SARS-CoV-2 (PCR) Not detected Coronavirus NL63 (PCR) Not detected Human Metapneumovir PCR Not detected Influenza Type A (PCR) Not detected Influenza Type B (PCR) Not detected M. pneumoniae (PCR) Not detected Parainfluenza 1 (PCR) Not detected Parainfluenza 2 (PCR) Not detected Parainfluenza 3 (PCR) Not detected Parainfluenza 4 (PCR) Not detected RSV (PCR) Not detected Entero/Rhino (PCR) Not detected 09/23/22 09/23/22 12:29 12:30 WBC RBC Hgb Hct MCV MCH MCHC RDW Plt Count Neut % (Auto) Lymph % (Auto) [place] % (Auto) Eos % (Auto) Baso % (Auto) Neut # (Auto) Lymph # (Auto) [place] # (Auto) Eos # (Auto) Baso # (Auto) RBC Morphology Hypochromasia Anisocytosis Microcytosis Stomatocytes PT INR D-Dimer ABG pH ABG pCO2 ABG pO2 ABG HCO3 ABG Total CO2 ABG O2 Saturation ABG Base Excess FiO2 Sodium 134 L Potassium 5.1 Chloride 91 L Carbon Dioxide 35 H BUN 28 H Creatinine 0.76 Estimated GFR > 60 BUN/Creatinine Ratio 36.8 H Glucose 178 H Lactate Calcium 9.2 Magnesium Total Bilirubin 1.0 AST 1998 H ALT 1321 H Alkaline Phosphatase 196 H Total Creatine Kinase CK-MB (CK-2) CK-MB (CK-2) Rel Index Troponin I NT-Pro-B Natriuret Pep Total Protein 7.5 Albumin 3.8 Globulin 3.7 Albumin/Globulin Ratio 1.0 Lipase Urine Color Urine Appearance Urine pH Ur Specific [place] Urine Protein Urine Glucose (UA) Urine Ketones Urine Occult Blood Urine Nitrate Urine Bilirubin Urine Urobilinogen Ur Leukocyte Esterase Urine RBC Urine WBC Ur Squamous Epith Cells Urine Bacteria Ur Culture Indicated? Acetaminophen < 10 Chlamy pneumoniae PCR Adenovirus (PCR) B. pertussis DNA (PCR) B.parapertussis DNA PCR Coronavirus OC43 (PCR) Coronavirus HKU1 (PCR) Coronavirus 229E (PCR) SARS-CoV-2 (PCR) Coronavirus NL63 (PCR) Human Metapneumovir PCR Influenza Type A (PCR) Influenza Type B (PCR) M. pneumoniae (PCR) Parainfluenza 1 (PCR) Parainfluenza 2 (PCR) Parainfluenza 3 (PCR) Parainfluenza 4 (PCR) RSV (PCR) Entero/Rhino (PCR) Assessment & Plan Assessment & Plan narrative: # acute hypoxic respiratory failure 2/2 CHF exacerbation -presents with worsening dyspnea, fatigue, elevated BNP if 4000 up from 700 prior, hypoxic to 65% on room air. Peripheral edema on exam. -continue HFNC and wean as able -IV lasix 40 BID -strict I/O's -echo ordered, previous EF 60-65% with mild LVH, severely elevated RVSP of 82 # severely elevated LFT's, elevated INR -AST up to 1998 and ALT 1321, likely secondary to hepatic congestion from CHF. INR 1.5. -tylenol level normal -GI contacted by ED and recommended just trending, transfer if INR and LFT's continue to rise -treat CHF as above -avoid hepatotoxic agents -trend CMP's # lactic acidemia, now resolved -initial LA of 3.9 and improved with diuresis to normal # elevated troponin -secondary to CHF exac and demand ischemia -trop downtrended # hyperkalemia, resolved -initially 5.9 but improved to 5.1 without treatment -monitor # history of CVA ?- continue plavix, hold statin due to transaminitis # chronic microcytic anemia, acute, present on admission - Hgb 9.1 with MCV 65 all chronic -continue po iron # chronic leukocytosis -per notes follows with hematology and source of leukocytosis unclear as patient refused bone marrow biopsy -UA negative for UTI # DM2 -continue home lantus but at 40 BID -A1c 9.2% earlier this month -high dose SSI # PVD -continue plavix, statin # HTN -continue losartan # chronic LE diabetic foot ulcers -continue wound care, does not appear to be actively infected. # insomnia, depression -continue celexa, remeron, and ambien Code status is DNR. DVT prophylaxis with lovenox. Proxy is Ann granddaughter. I have reviewed home meds and used all available resources to reconcile the home meds. This patient will be admitted as inpatient and will require greater than 2 midnights of hospital time to treat CHF exacerbation and hypoxia.
[2022-09-23 15:41] LABS: Procalcitonin 0.15 ng/mL (<0.5)
[2022-09-23 15:58] LABS: TSH w/ Reflex to FT4 3.48 uIU/mL (0.47-4.68)
[2022-09-23] MEDS: ENOXAPARIN 40 MG/0.4 ML SYRINGE SUBCUT (16:03)
--- NOTE | 2022-09-23 16:09 | PT-IP ANOTE ---
Hold PT/OT until tomorrow per Dr. Mckee.
--- NOTE | 2022-09-23 16:40 | PC.ADMIT ---
Admission Note: Patient arrived to room 227 at 1510 from the ER. Assisted from stretcher to bed via slider board. Placed on heated HFNC 45L and 45% FiO2 by RT, SpO2 in the 90-94% range, does desat to the low 90s when sleeping. Alert and oriented x3, speech is slow and muffled and difficult to understand, able to accurately state where she is and what brought her to the hospital. Lungs decreased and coarse bilaterally. HR NSR in the 90s. Bilateral 2+ pitting edema to BLEs. Multiple foot ulcers present, 3 on right foot and 1 large ulcer on the left - see wound photos. Wounds are being managed by the [facility], clinic contacted and requested dressing materials and pt's current wound orders which will be brought to pt's room. Dressings off of wounds at this time and heels are floated. Pt life alert necklace present and pt's clothing in room. The patient,Ariana Causey,62 y/o, was given written information regarding hospital policies, unit procedures and contact persons. Patient's smoking status: Current every day smoker. Vital Signs - 8 hr 09/23/22 09:25 09/23/22 09:18 09/23/22 09:19 Temperature 98.6 F Pulse Rate 98 H 54 L Respiratory Rate 26 H Blood Pressure 121/76 121/76 Pulse Oximetry 75 L 62 L Oxygen Delivery Method Room Air Oxygen Flow Rate Fraction of Inspired Oxygen 09/23/22 09:19 09/23/22 09:20 09/23/22 09:21 Temperature Pulse Rate 65 98 H 98 H Respiratory Rate 34 H Blood Pressure Pulse Oximetry 63 L 75 L 73 L Oxygen Delivery Method Oxygen Flow Rate Fraction of Inspired Oxygen 09/23/22 09:22 09/23/22 09:23 09/23/22 09:24 Temperature Pulse Rate 98 H 98 H 97 H Respiratory Rate 34 H 29 H 35 H Blood Pressure Pulse Oximetry 76 L 74 L 77 L Oxygen Delivery Method Oxygen Flow Rate Fraction of Inspired Oxygen 09/23/22 09:25 09/23/22 09:26 09/23/22 09:27 Temperature Pulse Rate 97 H 96 H 96 H Respiratory Rate 35 H 31 H 31 H Blood Pressure Pulse Oximetry 88 L 90 L 90 L Oxygen Delivery Method Nasal Cannula Oxygen Flow Rate 3 Fraction of Inspired Oxygen 09/23/22 09:28 09/23/22 09:29 09/23/22 09:30 Temperature Pulse Rate 96 H 96 H 96 H Respiratory Rate 31 H 30 H 31 H Blood Pressure Pulse Oximetry 93 95 94 Oxygen Delivery Method Oxygen Flow Rate Fraction of Inspired Oxygen 09/23/22 09:31 09/23/22 09:32 09/23/22 09:33 Temperature Pulse Rate 96 H 96 H 96 H Respiratory Rate 29 H 29 H 30 H Blood Pressure Pulse Oximetry 95 96 96 Oxygen Delivery Method Oxygen Flow Rate Fraction of Inspired Oxygen 09/23/22 09:34 09/23/22 09:35 09/23/22 09:36 Temperature Pulse Rate 95 H 95 H 96 H Respiratory Rate 32 H 32 H 32 H Blood Pressure Pulse Oximetry 95 95 95 Oxygen Delivery Method Oxygen Flow Rate Fraction of Inspired Oxygen 09/23/22 09:37 09/23/22 09:37 09/23/22 09:38 Temperature Pulse Rate 95 H 95 H Respiratory Rate 29 H 30 H Blood Pressure 179/74 H Pulse Oximetry 95 96 Oxygen Delivery Method Nasal Cannula Oxygen Flow Rate 3 Fraction of Inspired Oxygen 09/23/22 09:39 09/23/22 09:40 09/23/22 09:40 Temperature Pulse Rate 96 H 96 H Respiratory Rate 30 H 31 H Blood Pressure 161/74 H Pulse Oximetry 96 95 Oxygen Delivery Method Oxygen Flow Rate Fraction of Inspired Oxygen 09/23/22 09:41 09/23/22 09:42 09/23/22 09:43 Temperature Pulse Rate 96 H 96 H Respiratory Rate 34 H 34 H Blood Pressure 166/74 H Pulse Oximetry 94 93 Oxygen Delivery Method Oxygen Flow Rate Fraction of Inspired Oxygen 09/23/22 09:43 09/23/22 09:44 09/23/22 09:44 Temperature Pulse Rate 96 H 96 H Respiratory Rate 30 H 32 H Blood Pressure 163/74 H Pulse Oximetry 94 95 Oxygen Delivery Method Oxygen Flow Rate Fraction of Inspired Oxygen 09/23/22 09:45 09/23/22 09:45 09/23/22 09:46 Temperature Pulse Rate 96 H 96 H Respiratory Rate 32 H 34 H Blood Pressure 180/100 H Pulse Oximetry 94 94 Oxygen Delivery Method Nasal Cannula Oxygen Flow Rate 3 Fraction of Inspired Oxygen 09/23/22 09:47 09/23/22 09:47 09/23/22 09:48 Temperature Pulse Rate 96 H Respiratory Rate 36 H Blood Pressure 165/74 H 154/82 H Pulse Oximetry 92 Oxygen Delivery Method Oxygen Flow Rate Fraction of Inspired Oxygen 09/23/22 09:48 09/23/22 10:01 09/23/22 09:49 Temperature Pulse Rate 96 H 96 H Respiratory Rate 34 H 32 H Blood Pressure 149/73 H Pulse Oximetry 90 L 92 Oxygen Delivery Method Nasal Cannula Oxygen Flow Rate 3 Fraction of Inspired Oxygen 35 09/23/22 09:49 09/23/22 09:50 09/23/22 09:50 Temperature Pulse Rate 96 H Respiratory Rate 33 H Blood Pressure 150/84 H 156/83 H Pulse Oximetry 91 Oxygen Delivery Method Nasal Cannula Oxygen Flow Rate 3 Fraction of Inspired Oxygen 09/23/22 09:51 09/23/22 09:51 09/23/22 09:52 Temperature Pulse Rate 96 H Respiratory Rate 37 H Blood Pressure 151/84 H 146/81 H Pulse Oximetry 90 L Oxygen Delivery Method Oxygen Flow Rate Fraction of Inspired Oxygen 09/23/22 09:53 09/23/22 09:54 09/23/22 09:55 Temperature Pulse Rate Respiratory Rate Blood Pressure 147/78 H 143/77 H 142/79 H Pulse Oximetry Oxygen Delivery Method Oxygen Flow Rate Fraction of Inspired Oxygen 09/23/22 09:55 09/23/22 09:56 09/23/22 09:57 Temperature Pulse Rate 97 H Respiratory Rate 31 H Blood Pressure 145/78 H 148/74 H Pulse Oximetry 95 Oxygen Delivery Method Oxygen Flow Rate Fraction of Inspired Oxygen 09/23/22 09:57 09/23/22 09:58 09/23/22 09:58 Temperature Pulse Rate 96 H 95 H Respiratory Rate 29 H 29 H Blood Pressure 147/74 H Pulse Oximetry 95 94 Oxygen Delivery Method Oxygen Flow Rate Fraction of Inspired Oxygen 09/23/22 09:59 09/23/22 09:59 09/23/22 10:00 Temperature Pulse Rate 95 H Respiratory Rate 27 H Blood Pressure 150/84 H 148/83 H Pulse Oximetry 95 Oxygen Delivery Method Oxygen Flow Rate Fraction of Inspired Oxygen 09/23/22 10:00 09/23/22 10:02 09/23/22 10:02 Temperature Pulse Rate 93 H 96 H Respiratory Rate 31 H 29 H Blood Pressure 149/63 H Pulse Oximetry 95 95 Oxygen Delivery Method Oxygen Flow Rate Fraction of Inspired Oxygen 09/23/22 10:03 09/23/22 10:03 09/23/22 10:04 Temperature Pulse Rate 94 H Respiratory Rate 32 H Blood Pressure 148/70 H 149/73 H Pulse Oximetry 95 Oxygen Delivery Method Oxygen Flow Rate Fraction of Inspired Oxygen 09/23/22 10:04 09/23/22 10:05 09/23/22 10:19 Temperature Pulse Rate 93 H 92 H Respiratory Rate 29 H 31 H Blood Pressure 149/73 H 141/70 H Pulse Oximetry 96 96 Oxygen Delivery Method Oxygen Flow Rate Fraction of Inspired Oxygen 09/23/22 10:20 09/23/22 10:20 09/23/22 10:21 Temperature Pulse Rate 92 H Respiratory Rate 27 H Blood Pressure 141/70 H 139/71 Pulse Oximetry 96 Oxygen Delivery Method Oxygen Flow Rate Fraction of Inspired Oxygen 09/23/22 10:21 09/23/22 10:22 09/23/22 10:22 Temperature Pulse Rate 93 H 92 H Respiratory Rate 32 H 27 H Blood Pressure 132/72 Pulse Oximetry 96 95 Oxygen Delivery Method Oxygen Flow Rate Fraction of Inspired Oxygen 09/23/22 10:23 09/23/22 10:23 09/23/22 10:24 Temperature Pulse Rate 93 H Respiratory Rate 28 H Blood Pressure 141/70 H 142/72 H Pulse Oximetry 96 Oxygen Delivery Method Oxygen Flow Rate Fraction of Inspired Oxygen 09/23/22 10:24 09/23/22 10:25 09/23/22 10:25 Temperature Pulse Rate 91 H 91 H Respiratory Rate 29 H 29 H Blood Pressure 142/71 H Pulse Oximetry 96 96 Oxygen Delivery Method Oxygen Flow Rate Fraction of Inspired Oxygen 09/23/22 10:26 09/23/22 10:26 09/23/22 10:27 Temperature Pulse Rate 91 H Respiratory Rate 28 H Blood Pressure 140/72 137/69 Pulse Oximetry 95 Oxygen Delivery Method Oxygen Flow Rate Fraction of Inspired Oxygen 09/23/22 10:27 09/23/22 10:28 09/23/22 10:28 Temperature Pulse Rate 91 H 91 H Respiratory Rate 30 H 29 H Blood Pressure 137/69 Pulse Oximetry 94 94 Oxygen Delivery Method Oxygen Flow Rate Fraction of Inspired Oxygen 09/23/22 10:29 09/23/22 10:29 09/23/22 10:30 Temperature Pulse Rate 90 Respiratory Rate 29 H Blood Pressure 135/66 132/68 Pulse Oximetry 94 Oxygen Delivery Method Oxygen Flow Rate Fraction of Inspired Oxygen 09/23/22 10:30 09/23/22 10:31 09/23/22 10:31 Temperature Pulse Rate 90 91 H Respiratory Rate 29 H 34 H Blood Pressure 137/71 Pulse Oximetry 93 94 Oxygen Delivery Method Oxygen Flow Rate Fraction of Inspired Oxygen 09/23/22 10:32 09/23/22 10:32 09/23/22 10:33 Temperature Pulse Rate 92 H Respiratory Rate 34 H Blood Pressure 137/74 131/74 Pulse Oximetry 93 Oxygen Delivery Method Oxygen Flow Rate Fraction of Inspired Oxygen 09/23/22 10:33 09/23/22 10:35 09/23/22 10:35 Temperature Pulse Rate 91 H 91 H Respiratory Rate 30 H 30 H Blood Pressure 135/75 Pulse Oximetry 93 93 Oxygen Delivery Method Oxygen Flow Rate Fraction of Inspired Oxygen 09/23/22 10:40 09/23/22 10:40 09/23/22 10:45 Temperature Pulse Rate 91 H Respiratory Rate 31 H Blood Pressure 145/79 H 140/76 Pulse Oximetry 94 Oxygen Delivery Method Oxygen Flow Rate Fraction of Inspired Oxygen 09/23/22 10:45 09/23/22 10:50 09/23/22 10:50 Temperature Pulse Rate 91 H 91 H Respiratory Rate 33 H 37 H Blood Pressure 145/74 H Pulse Oximetry 92 Oxygen Delivery Method Oxygen Flow Rate Fraction of Inspired Oxygen 09/23/22 11:06 09/23/22 11:09 09/23/22 11:09 Temperature Pulse Rate 92 H Respiratory Rate 30 H Blood Pressure 140/87 Pulse Oximetry 100 88 L Oxygen Delivery Method Oxygen Flow Rate Fraction of Inspired Oxygen 09/23/22 11:10 09/23/22 11:10 09/23/22 11:15 Temperature Pulse Rate 91 H 88 Respiratory Rate 30 H 28 H Blood Pressure 151/94 H Pulse Oximetry 91 96 Oxygen Delivery Method Oxygen Flow Rate Fraction of Inspired Oxygen 09/23/22 11:15 09/23/22 11:20 09/23/22 11:20 Temperature Pulse Rate 89 Respiratory Rate 29 H Blood Pressure 159/91 H 156/89 H Pulse Oximetry 95 Oxygen Delivery Method Oxygen Flow Rate Fraction of Inspired Oxygen 09/23/22 11:25 09/23/22 11:25 09/23/22 11:30 Temperature Pulse Rate 89 Respiratory Rate 30 H Blood Pressure 173/90 H 161/85 H Pulse Oximetry 97 Oxygen Delivery Method Oxygen Flow Rate Fraction of Inspired Oxygen 09/23/22 11:30 09/23/22 11:35 09/23/22 11:35 Temperature Pulse Rate 89 86 Respiratory Rate 29 H 29 H Blood Pressure 163/96 H Pulse Oximetry 95 96 Oxygen Delivery Method Oxygen Flow Rate Fraction of Inspired Oxygen 09/23/22 11:45 09/23/22 11:45 09/23/22 12:00 Temperature Pulse Rate 92 H Respiratory Rate 28 H Blood Pressure 160/74 H 150/61 H Pulse Oximetry 90 L Oxygen Delivery Method Oxygen Flow Rate Fraction of Inspired Oxygen 09/23/22 12:00 09/23/22 12:40 09/23/22 12:15 Temperature Pulse Rate 91 H 91 H Respiratory Rate 31 H 28 H Blood Pressure 150/61 H 163/75 H Pulse Oximetry 83 L 93 Oxygen Delivery Method Oxygen Flow Rate Fraction of Inspired Oxygen 09/23/22 12:15 09/23/22 12:30 09/23/22 12:30 Temperature Pulse Rate 90 91 H Respiratory Rate 27 H 29 H Blood Pressure 166/87 H Pulse Oximetry 93 95 Oxygen Delivery Method Oxygen Flow Rate Fraction of Inspired Oxygen 09/23/22 12:45 09/23/22 12:45 09/23/22 13:00 Temperature Pulse Rate 91 H Respiratory Rate 27 H Blood Pressure 171/94 H 154/72 H Pulse Oximetry 97 Oxygen Delivery Method Oxygen Flow Rate Fraction of Inspired Oxygen 09/23/22 13:00 09/23/22 13:15 09/23/22 13:15 Temperature Pulse Rate 90 86 Respiratory Rate 27 H 27 H Blood Pressure 135/64 Pulse Oximetry 94 95 Oxygen Delivery Method Oxygen Flow Rate Fraction of Inspired Oxygen 09/23/22 13:30 09/23/22 13:30 09/23/22 13:45 Temperature Pulse Rate 85 89 Respiratory Rate 23 22 Blood Pressure 140/65 Pulse Oximetry 92 92 Oxygen Delivery Method Oxygen Flow Rate Fraction of Inspired Oxygen 09/23/22 13:45 09/23/22 14:00 09/23/22 14:00 Temperature Pulse Rate 89 Respiratory Rate 20 Blood Pressure 163/72 H 148/66 H Pulse Oximetry 96 Oxygen Delivery Method Oxygen Flow Rate Fraction of Inspired Oxygen 09/23/22 14:15 09/23/22 14:15 09/23/22 14:30 Temperature Pulse Rate 92 H Respiratory Rate 21 Blood Pressure 163/72 H 154/71 H Pulse Oximetry 93 Oxygen Delivery Method Oxygen Flow Rate Fraction of Inspired Oxygen 09/23/22 14:30 09/23/22 14:45 09/23/22 14:45 Temperature Pulse Rate 92 H 89 Respiratory Rate 21 23 Blood Pressure 137/62 Pulse Oximetry 88 L 91 Oxygen Delivery Method Oxygen Flow Rate Fraction of Inspired Oxygen 09/23/22 15:25 09/23/22 14:43 Temperature Pulse Rate 90 90 Respiratory Rate 21 23 Blood Pressure 159/80 H 159/80 H Pulse Oximetry 92 90 L Oxygen Delivery Method Oxygen Flow Rate 45 Fraction of Inspired Oxygen 45
--- NOTE | 2022-09-23 16:48 | PC.WOUNDPHOT ---
Wound Photos: 1) Right heel 2) Right foot 3) Lateral aspect of right ankle 4) Left heel 4) Left foot
[2022-09-23 16:55] LABS: MRSA (Nasal) PCR Not Detected (Not Detect)
[2022-09-23 17:08] LABS: Appearance Urine UA CLEAR; Bilirubin Urine UA NEGATIVE (NEGATIVE); Color Urine UA YELLOW; Glucose Urine UA NEGATIVE (Negative); Ketones Urine UA NEGATIVE (NEGATIVE); Leukocyte Esterase Urine UA NEGATIVE (NEGATIVE); Nitrite Urine UA NEGATIVE (Negative); Occult Blood Urine UA 2+ (Negative); Protein Urine UA NEGATIVE (Negative)
[2022-09-23] MEDS: INSULIN LISPRO 100 UNIT/ML 3ML VIAL SUBCUT ×2 (17:10→20:57)
[2022-09-23 17:12] LABS: Lactate (Lactic Acid) 1.9 mmol/L (0.7-2.1)
[2022-09-23 17:23] LABS: Bacteria Urine Occasional (0-1); Culture Indicated Urine Cult Not Indicated; RBC Urine 0-1/HPF (0-5/HPF); Squamous Epithelial Cell Urine 0-1 /HPF (0-5/HPF); WBC Urine 0-1/HPF (0-5/HPF)
[2022-09-23] MEDS: ALBUTEROL/IPRATROPIUM 3 ML AMPUL INH ×2 (18:57→22:58)
[2022-09-23] MEDS: INSULIN GLARGINE 100 UNIT/ML 3ML PEN 40 UNIT SUBCUT (20:59)
[2022-09-23] MEDS: MIRTAZAPINE 15 MG TABLET 7.5 MG PO (21:01)
[2022-09-23] MEDS: ZOLPIDEM 5 MG TABLET 10 MG PO (21:01)
[2022-09-24] VITALS (60 sets, daily range): BP systolic 117–150; BP diastolic 55–75; PULSE 84–117; RESP 16–38; TEMP 35.9–36.6; O2SAT 84–98
[2022-09-24 03:39] LABS: HBsAg Screen Negative (Negative); Hepatitis A Antibody IgM Negative (Negative); Hepatitis B Core Antibody IgM Negative (Negative); Hepatitis C Antibody Non Reactive (Non Reactive)
[2022-09-24 05:01] LABS: Basophils Absolute Auto 100 /uL (0-100); Basophils Percent Auto 0.5 % (0-2); Eosinophils Absolute Auto 0 /uL (0-450); Hematocrit 31.6 % (36-46); Hemoglobin 9.4 g/dL (12.0-16.0); Lymphocytes Absolute Auto 1600 /uL (1100-4500); Lymphocytes Percent Auto 6.5 % (25-40); Mean Corpuscular HGB Conc 29.8 % (30-36); Mean Corpuscular Hemoglobin 18.9 PG (26-34); Mean Corpuscular Volume 63.3 fL (80-100); Monocytes Absolute Auto 2000 /uL (0-900); Monocytes Percent Auto 8.4 % (3-14); Neutrophils Absolute Auto 20200 /uL (1500-7000); Neutrophils Percent Auto 84.6 % (50-75); Platelet Count 456 X10^3/uL (150-400); Red Blood Cell Count 4.99 X10^6/uL (4.0-5.2); Red Cell Distribution Width 20.1 % (11.6-14.8); White Blood Cell Count 23.9 X10^3/uL (4.5-11.0)
[2022-09-24 05:02] LABS: Add Manual Diff / Slide Review SLIDE REVIEW
[2022-09-24 05:14] LABS: Albumin 3.6 g/dL (3.5-5.0); Albumin Globulin Ratio 0.9 (1.0-2.8); Alkaline Phosphatase 187 U/L (38-126); BUN Creatinine Ratio 48.5 (6-22); Bilirubin Total 0.7 mg/dL (0.2-1.3); Blood Urea Nitrogen 32 mg/dL (7-17); Carbon Dioxide 37 mmol/L (22-32); Chloride 92 mmol/L (98-107); Estimated Glomerular Filt Rate > 60 mL/min (>60); Glucose 179 mg/dL (80-110); HEMOLYSIS < 15 (0-50); Potassium 4.1 mmol/L (3.4-5.1); Sodium 135 mmol/L (137-145); Total Protein 7.6 g/dL (6.3-8.2)
[2022-09-24 05:21] LABS: Alanine Aminotransferase 996 IU/L (<35); Aspartate Aminotransferase 907 IU/L (14-36)
[2022-09-24] MEDS: ALBUTEROL/IPRATROPIUM 3 ML AMPUL INH ×5 (07:23→23:48)
[2022-09-24] MEDS: PANTOPRAZOLE DR 40 MG TABLET PO (07:30)
[2022-09-24] MEDS: FUROSEMIDE 40 MG/4 ML VIAL IV ×2 (08:04→15:22)
[2022-09-24] MEDS: ENOXAPARIN 40 MG/0.4 ML SYRINGE SUBCUT ×2 (08:04→20:28)
[2022-09-24] MEDS: INSULIN LISPRO 100 UNIT/ML 3ML VIAL SUBCUT ×3 (08:04→16:46)
[2022-09-24] MEDS: LOSARTAN 25 MG TABLET PO (08:06)
[2022-09-24] MEDS: CLOPIDOGREL 75 MG TABLET PO (08:06)
[2022-09-24 08:09] LABS: Microcytosis 2+
[2022-09-24] MEDS: CYCLOBENZAPRINE 10 MG TABLET PO ×2 (08:09→20:29)
[2022-09-24 08:10] LABS: Anisocytosis 2+; Platelet Estimate Adequate on smear
[2022-09-24] MEDS: INSULIN GLARGINE 100 UNIT/ML 3ML PEN 40 UNIT SUBCUT ×2 (08:16→20:30)
--- NOTE | 2022-09-24 10:59 | OT.IPNOTE ---
Per Hospitalist during rounds, pt not medically appropriate for therapy at this time and doctor gave verbal orders to discharge therapy eval orders.
--- NOTE | 2022-09-24 13:10 | PT-IP ANOTE ---
PT eval order received and EMR reviewed. Per hospitalist during rounds, d/c PT order at this time as pt is not medically stable to do PT. Pt is still needing high flow O2. hospitalist will re-order PT eval once pt is more appropriate.
--- NOTE | 2022-09-24 13:15 | PM.PN.1 ---
Subjective Subjective Date Patient Seen: 09/24/22 Interval history: 62 yo F adm with CHF exacerbation, noted chronic pressure wounds on feet/ankles. Pt notes improvement in dyspnea with IV Lasix. She's diuresing well. Exam Vital Signs (past 8 hours): - 09/24/22 07:24 09/24/22 07:25 09/24/22 07:00 Temperature Pulse Rate 89 87 Respiratory Rate 22 22 Pulse Oximetry 96 96 Oxygen Delivery Method Heated High Flow Heated High Flow Oxygen Flow Rate 40 Fraction of Inspired Oxygen 35 09/24/22 05:30 09/24/22 06:00 09/24/22 06:30 Temperature Pulse Rate 93 H 95 H 89 Respiratory Rate 24 21 18 Pulse Oximetry 86 L 91 94 Oxygen Delivery Method Oxygen Flow Rate Fraction of Inspired Oxygen 09/24/22 07:00 09/24/22 07:30 09/24/22 07:00 Temperature 97.4 F L Pulse Rate 86 90 Respiratory Rate 17 20 Pulse Oximetry 95 98 Oxygen Delivery Method Oxygen Flow Rate 40 Fraction of Inspired Oxygen 09/24/22 08:00 09/24/22 08:30 09/24/22 11:13 Temperature Pulse Rate 93 H 93 H 100 H Respiratory Rate 24 24 18 Pulse Oximetry 93 90 L 93 Oxygen Delivery Method Heated High Flow Oxygen Flow Rate 40 Fraction of Inspired Oxygen 35 09/24/22 11:18 09/24/22 09:00 09/24/22 09:30 Temperature Pulse Rate 100 H 101 H 113 H Respiratory Rate 18 23 26 H Pulse Oximetry 93 92 93 Oxygen Delivery Method Oxygen Flow Rate Fraction of Inspired Oxygen 09/24/22 10:00 09/24/22 10:30 09/24/22 11:00 Temperature Pulse Rate 101 H 109 H 100 H Respiratory Rate 27 H 24 29 H Pulse Oximetry 90 L 84 L Oxygen Delivery Method Oxygen Flow Rate Fraction of Inspired Oxygen 09/24/22 11:30 09/24/22 12:00 Temperature Pulse Rate 100 H 103 H Respiratory Rate 25 H 24 Pulse Oximetry 92 93 Oxygen Delivery Method Oxygen Flow Rate Fraction of Inspired Oxygen Fraction of Inspired Oxygen 35 SaO2/FiO2 Ratio 265 Oxygen Delivery Method Heated High Flow Oxygen Flow Rate 40 Narrative Exam Narrative: Gen: alert, cooperative, NAD Lungs: right lower crackles Ext: trace edema LEs, chronic unstageable pressure sores on ankles, feet Neuro: nl speech and affect Objective Labs 09/24/22 04:23 09/24/22 04:23 Labs: Laboratory Results - last 24 hr 09/23/22 09/23/22 09/23/22 09:25 12:35 12:35 WBC RBC Hgb Hct MCV MCH MCHC RDW Plt Count Neut % (Auto) Lymph % (Auto) [place] % (Auto) Eos % (Auto) Baso % (Auto) Neut # (Auto) Lymph # (Auto) [place] # (Auto) Eos # (Auto) Baso # (Auto) Platelet Estimate RBC Morphology Anisocytosis Microcytosis Sodium Potassium Chloride Carbon Dioxide BUN Creatinine Estimated GFR BUN/Creatinine Ratio Glucose Lactate Calcium Total Bilirubin AST ALT Alkaline Phosphatase Troponin I Total Protein Albumin Globulin Albumin/Globulin Ratio Procalcitonin 0.15 TSH 3.48 Urine Color Urine Appearance Urine pH Ur Specific [place] Urine Protein Urine Glucose (UA) Urine Ketones Urine Occult Blood Urine Nitrate Urine Bilirubin Urine Urobilinogen Ur Leukocyte Esterase Urine RBC Urine WBC Ur Squamous Epith Cells Urine Bacteria Ur Culture Indicated? Nasal Screen MRSA (PCR) Hepatitis A IgM Ab Negative Hep Bs Antigen Negative Hep B Core IgM Ab Negative Hepatitis C Antibody Non reactive Hep C Ab Signal/Cutoff Comment 09/23/22 09/23/22 09/23/22 15:30 16:30 16:30 WBC RBC Hgb Hct MCV MCH MCHC RDW Plt Count Neut % (Auto) Lymph % (Auto) [place] % (Auto) Eos % (Auto) Baso % (Auto) Neut # (Auto) Lymph # (Auto) [place] # (Auto) Eos # (Auto) Baso # (Auto) Platelet Estimate RBC Morphology Anisocytosis Microcytosis Sodium Potassium Chloride Carbon Dioxide BUN Creatinine Estimated GFR BUN/Creatinine Ratio Glucose Lactate 1.9 Calcium Total Bilirubin AST ALT Alkaline Phosphatase Troponin I 0.050 H Total Protein Albumin Globulin Albumin/Globulin Ratio Procalcitonin TSH Urine Color Urine Appearance Urine pH Ur Specific [place] Urine Protein Urine Glucose (UA) Urine Ketones Urine Occult Blood Urine Nitrate Urine Bilirubin Urine Urobilinogen Ur Leukocyte Esterase Urine RBC Urine WBC Ur Squamous Epith Cells Urine Bacteria Ur Culture Indicated? Nasal Screen MRSA (PCR) Not detected Hepatitis A IgM Ab Hep Bs Antigen Hep B Core IgM Ab Hepatitis C Antibody Hep C Ab Signal/Cutoff 09/23/22 09/24/22 09/24/22 16:30 04:23 04:23 WBC 23.9 H RBC 4.99 Hgb 9.4 L Hct 31.6 L MCV 63.3 L MCH 18.9 L MCHC 29.8 L RDW 20.1 H Plt Count 456 H Neut % (Auto) 84.6 H Lymph % (Auto) 6.5 L [place] % (Auto) 8.4 Eos % (Auto) 0.0 L Baso % (Auto) 0.5 Neut # (Auto) 55930 H Lymph # (Auto) 1600 [place] # (Auto) 2000 H Eos # (Auto) 0 Baso # (Auto) 100 Platelet Estimate Adequate on smear RBC Morphology See below Anisocytosis 2+ H Microcytosis 2+ H Sodium 135 L Potassium 4.1 Chloride 92 L Carbon Dioxide 37 H BUN 32 H Creatinine 0.66 Estimated GFR > 60 BUN/Creatinine Ratio 48.5 H Glucose 179 H Lactate Calcium 9.0 Total Bilirubin 0.7 AST 907 H ALT 996 H Alkaline Phosphatase 187 H Troponin I Total Protein 7.6 Albumin 3.6 Globulin 4.0 Albumin/Globulin Ratio 0.9 L Procalcitonin TSH Urine Color Yellow Urine Appearance Clear Urine pH 7.0 Ur Specific [place] 1.010 Urine Protein Negative Urine Glucose (UA) Negative Urine Ketones Negative Urine Occult Blood 2+ H Urine Nitrate Negative Urine Bilirubin Negative Urine Urobilinogen 1.0 Ur Leukocyte Esterase Negative Urine RBC 0-1/hpf Urine WBC 0-1/hpf Ur Squamous Epith Cells 0-1 /hpf Urine Bacteria Occasional (0-1) D Ur Culture Indicated? Cult not indicated Nasal Screen MRSA (PCR) Hepatitis A IgM Ab Hep Bs Antigen Hep B Core IgM Ab Hepatitis C Antibody Hep C Ab Signal/Cutoff PFSH Medical History CHF (congestive heart failure) Diabetes Hyperlipidemia Hypertension Peripheral neuropathy PVD (peripheral vascular disease) TIA (transient ischemic attack) Surgical History H/O angioplasty History of cholecystectomy Social History household members: caregiver Smoking Status: Current every day smoker alcohol intake: never Assessment & Plan Assessment & Plan narrative: # acute hypoxic respiratory failure 2/2 CHF exacerbation -presents with worsening dyspnea, fatigue, elevated BNP of 4000 up from 700 prior, hypoxic to 65% on room air. Peripheral edema on exam. -continue HFNC and wean as able -IV lasix 40 BID, continue -strict I/O's -echo ordered, previous EF 60-65% with mild LVH, severely elevated RVSP of 82 # severely elevated LFT's, elevated INR -AST up to 1997 and ALT 1321, likely secondary to hepatic congestion from CHF. INR 1.5. -tylenol level normal -GI contacted by ED and recommended just trending, transfer if INR and LFT's continue to rise -treat CHF as above -avoid hepatotoxic agents -trend CMP's -LFTs improving with diuresis -holding statin # lactic acidemia, now resolved -initial LA of 3.9 and improved with diuresis to normal # elevated troponin -secondary to CHF exac and demand ischemia -trop downtrended # hyperkalemia, resolved -initially 5.9 but improved to 5.1 without treatment, now normal -monitor # history of CVA ?- continue plavix, hold statin due to transaminitis # chronic microcytic anemia, acute, present on admission - Hgb 9.1 with MCV 65 all chronic -continue po iron # chronic leukocytosis -per notes follows with hematology and source of leukocytosis unclear as patient refused bone marrow biopsy -UA negative for UTI # DM2 -continue home lantus but at 40 BID -A1c 9.2% earlier this month -high dose SSI # PVD -continue plavix, statin # HTN -continue losartan # chronic LE diabetic foot ulcers -continue wound care, does not appear to be actively infected. # insomnia, depression -continue celexa, remeron, and ambien Code status is DNR. DVT prophylaxis with lovenox. Proxy is Ann granddaughter. Quality VTE Deep Vein Thrombosis/Pulmonary Embolism Present on Admission: No
--- NOTE | 2022-09-24 13:23 | CM.DANOTE ---
Addendum entered by Laura Espinoza R.N. 09/24/22 14:17: Faxed over face to face, face sheet, orders, H&P to [facility], they will just need DC Summary upon discharge. Original Note: DCP: Case received, EMR reviewed and met with patient. Introduced self and role. Was able to obtain information regarding patient's baseline activity level prior to hospitalization. DCP assessment completed with information currently available. Patient is a 62 year old female who admitted yesterday afternoon to the care of the hospitalist team. PCP: JED Bailon. Payer: confirmed: [employer]/Medicaid. Patient came to the hospital via ambulance from [facility] secondary to having increased weakness, letharty. Patient was also noted to have increased shortness of breath. Notes indicate, patient had not taken her Lasix for a few days, due to concerns that it takes them some time to toilet her. Patient noted increased weight gain of 50 pounds from last visit to emergency department. Patient had been noted to be hypoxic, was placed on BIPAP. Patient was diagnosed with acute hypoxic respiratory failure/CHF exacerbation. Met with patient in her room, currently on high flow oxygen. Confirmed that she resides in [facility] at [facility]. At her baseline, staff use a sit to stand hoier for transfers. She also has a motorized scooter for mobility. She is also a smoker. She has assist with showers, toileting. Called over at [facility]. Spoke to Chace, she is the nurse for today and tomorrow, stated she is temporary. Stated after that, Romana Dennison would be point of contact. She mentioned and asked about the possiblilty of patient needing skilled over at [facility] before returning to them. Let her know that [facility] can review, but she is a hoier at baseline, is not mobile, would most likely need to be a medical need to skill her. Did send referral to September at [facility], she will follow, but would also need to get an auth from her [employer], which would involve a one time contract. She currently is not appropriate for P.T. at this time, but as mentioned, is not mobile at baseline. [facility] had called and indicted that she has been on their services for wound care. Called Cynthia at [facility], and updated her. Stated that she is only under nursing care, would need a new face to face, since this is a new problem for patient. Will complete a new face to face, will include nursing for wound care, as well as assessment for CHF. P: DCP to continue to follow. Patient could be ready for discharge tomorrow, may need to contact Chace at [facility] tomorrow, otherwise, Romana Dennison would be other contact. Neelam at [facility] will also review. Patient will need a visit from [facility] before accepting back as well. Plan is to return to [facility] with [facility], or [facility] as backup, September would need insurance auth. Laura Espinoza RN/Jointer Machine Discharge Planning/Care Management CM Discharge Assessment Start: 09/24/22 13:13 Freq: Status: Active Protocol: Document 09/24/22 13:13 (Rec: 09/24/22 13:23 [id number]) Discharge Planning Assessment Assigned Reed Fixer Laura Espinoza RN/Jointer Machine Advance Directives? Yes Advance Directives on File Yes History Provided By Patient,Medical Record Prior Living Arrangements Assisted Living Comment Patient lives at [facility] [place] Household Members caregiver Type of transporation used prior to Relies on Others admit Facility Name Admitted From: [facility]isted Living Willing to Return to Facility? Yes Independent with ADL's Yes Is patient alert and oriented? Yes Needs Assistance With Bathing,Meal Prep,Toileting, Managing Medications,Home Chores / Shopping Caregiver for Another No Comment Patient was under [facility] services, was just recerted, but will need new face to face since she is here for additional problem DME Already Rented / Owned Other Comment Sit to stand hoier and motorized scooter Patient/Family Preference Halfway Facility,Home with Home Health Comment [facility] will also review. Comment Patient resides at [facility], may have difficulties getting her back on a weekend Discharge Plan Home with Home Health Transportation Arrangement Facility, or may need Medicaid transport, possible BLS. Referrals Initiated Halfway,Home Health, Other Additional Comment [facility] has referral for back up, otherwise, back to her assisted living with [facility] If patient plan is home with home health Yes : Has signed face to face form been completed? Whiteboard Updated in Patient Room with Yes name and ext. # of Reed Fixer Review Status In Process Next Review Type Continued Stay Review
--- NOTE | 2022-09-24 15:08 | PC.NURSE ---
Wound care performed on both feet according to instructions dropped off by [facility]. Patient tolerated well.
[2022-09-24] MEDS: MIRTAZAPINE 15 MG TABLET 7.5 MG PO (20:29)
[2022-09-24] MEDS: ZOLPIDEM 5 MG TABLET 10 MG PO (20:29)
[2022-09-25] VITALS (62 sets, daily range): BP systolic 122–169; BP diastolic 59–83; PULSE 80–111; RESP 16–27; TEMP 36.6–37.1; O2SAT 87–98
[2022-09-25] MEDS: CODEINE/ACETAMINOPHEN 30/300 TABLET 1 TAB PO ×2 (02:56→10:39)
[2022-09-25 05:11] LABS: INR 1.3 (0.9-1.3); Prothrombin Time 15.3 SECONDS (10.1-12.7)
[2022-09-25 05:17] LABS: Alanine Aminotransferase 676 IU/L (<35); Albumin 3.4 g/dL (3.5-5.0); Albumin Globulin Ratio 0.9 (1.0-2.8); Alkaline Phosphatase 159 U/L (38-126); Aspartate Aminotransferase 253 IU/L (14-36); BUN Creatinine Ratio 48.7 (6-22); Bilirubin Total 0.6 mg/dL (0.2-1.3); Blood Urea Nitrogen 38 mg/dL (7-17); Calcium 8.3 mg/dL (8.4-10.2); Chloride 90 mmol/L (98-107); Estimated Glomerular Filt Rate > 60 mL/min (>60); Globulin 3.9 g/dL (1.7-4.1); Glucose 124 mg/dL (80-110); HEMOLYSIS < 15 (0-50); Potassium 3.2 mmol/L (3.4-5.1); Sodium 136 mmol/L (137-145); Total Protein 7.3 g/dL (6.3-8.2)
[2022-09-25 05:18] LABS: Basophils Absolute Auto 100 /uL (0-100); Basophils Percent Auto 0.3 % (0-2); Eosinophils Absolute Auto 100 /uL (0-450); Eosinophils Percent Auto 0.3 % (2-4); Hematocrit 32.1 % (36-46); Hemoglobin 9.3 g/dL (12.0-16.0); Lymphocytes Absolute Auto 3000 /uL (1100-4500); Lymphocytes Percent Auto 12.4 % (25-40); Mean Corpuscular Hemoglobin 18.5 PG (26-34); Mean Corpuscular Volume 63.8 fL (80-100); Monocytes Absolute Auto 3000 /uL (0-900); Monocytes Percent Auto 12.3 % (3-14); Neutrophils Absolute Auto 17900 /uL (1500-7000); Neutrophils Percent Auto 74.7 % (50-75); Platelet Count 519 X10^3/uL (150-400); Red Blood Cell Count 5.03 X10^6/uL (4.0-5.2); Red Cell Distribution Width 20.2 % (11.6-14.8)
[2022-09-25 05:22] LABS: Add Manual Diff / Slide Review SLIDE REVIEW
[2022-09-25 05:24] LABS: Carbon Dioxide 38 mmol/L (22-32)
[2022-09-25 05:51] LABS: Anisocytosis 1+; Microcytosis 2+
--- NOTE | 2022-09-25 06:17 | PC.NURSE ---
Patient was able to sleep after medicated with 1 tab Tylenol with codeine earlier @ 0256. Aroused easily with verbal & tactile stimuli, but very sleepy. Declined her Pantoprazole this morning, states I'll take it later, I want to sleep. Will report to day RN.
[2022-09-25] MEDS: FUROSEMIDE 40 MG/4 ML VIAL IV ×2 (07:56→16:13)
[2022-09-25] MEDS: SODIUM CHLORIDE 0.9% FLUSH 10 ML IV ×2 (08:24→20:21)
[2022-09-25] MEDS: INSULIN GLARGINE 100 UNIT/ML 3ML PEN 40 UNIT SUBCUT ×2 (08:24→20:22)
[2022-09-25] MEDS: CLOPIDOGREL 75 MG TABLET PO (08:25)
[2022-09-25] MEDS: ENOXAPARIN 40 MG/0.4 ML SYRINGE SUBCUT ×2 (08:25→20:20)
[2022-09-25] MEDS: CYCLOBENZAPRINE 10 MG TABLET PO ×2 (08:25→20:20)
[2022-09-25] MEDS: CITALOPRAM 10 MG TABLET 40 MG PO (08:26)
[2022-09-25] MEDS: LOSARTAN 25 MG TABLET PO (08:26)
--- NOTE | 2022-09-25 09:26 | PM.PN.1 ---
Subjective Subjective Interval history: Diuresing well at net neg -2.5L. Still requiring HFNC however. Patient overall feels better. Exam Vital Signs (past 8 hours): - 09/25/22 04:37 09/25/22 08:26 09/25/22 07:00 Temperature 98 F Pulse Rate 90 95 H Respiratory Rate 20 Blood Pressure 132/67 132/67 Pulse Oximetry 95 Oxygen Delivery Method Heated High Flow Oxygen Flow Rate Fraction of Inspired Oxygen 40 09/25/22 01:30 09/25/22 02:00 09/25/22 02:30 Temperature Pulse Rate 93 H 93 H 91 H Respiratory Rate 24 22 22 Blood Pressure Pulse Oximetry 94 92 94 Oxygen Delivery Method Oxygen Flow Rate Fraction of Inspired Oxygen 09/25/22 03:00 09/25/22 03:30 09/25/22 04:00 Temperature Pulse Rate 92 H 92 H 101 H Respiratory Rate 27 H 23 22 Blood Pressure Pulse Oximetry 95 94 97 Oxygen Delivery Method Oxygen Flow Rate Fraction of Inspired Oxygen 09/25/22 04:30 09/25/22 04:32 09/25/22 04:32 Temperature Pulse Rate 92 H 90 Respiratory Rate 21 23 Blood Pressure 132/67 Pulse Oximetry 96 96 Oxygen Delivery Method Oxygen Flow Rate Fraction of Inspired Oxygen 09/25/22 05:00 09/25/22 05:30 09/25/22 06:00 Temperature Pulse Rate 96 H 93 H 105 H Respiratory Rate 20 22 20 Blood Pressure Pulse Oximetry 90 L 87 L 94 Oxygen Delivery Method Oxygen Flow Rate Fraction of Inspired Oxygen 09/25/22 06:30 09/25/22 07:00 09/25/22 07:30 Temperature Pulse Rate 91 H 92 H 94 H Respiratory Rate 20 20 23 Blood Pressure Pulse Oximetry 96 95 95 Oxygen Delivery Method Oxygen Flow Rate Fraction of Inspired Oxygen 09/25/22 08:00 09/25/22 08:30 09/25/22 09:18 Temperature 98.8 F Pulse Rate 103 H 99 H 92 H Respiratory Rate 22 22 21 Blood Pressure 122/59 L Pulse Oximetry 91 96 98 Oxygen Delivery Method Oxygen Flow Rate 40 Fraction of Inspired Oxygen 35 Fraction of Inspired Oxygen 35 SaO2/FiO2 Ratio 268 Oxygen Delivery Method Heated High Flow Oxygen Flow Rate 40 Narrative Exam Narrative: Gen: alert, cooperative, NAD Lungs: right lower crackles Ext: trace edema LEs, chronic unstageable pressure sores on ankles, feet Neuro: nl speech and affect Objective Labs 09/25/22 04:30 09/25/22 04:30 Labs: Laboratory Results - last 24 hr 09/25/22 09/25/22 09/25/22 04:30 04:30 04:30 WBC 24.0 H RBC 5.03 Hgb 9.3 L Hct 32.1 L MCV 63.8 L MCH 18.5 L MCHC 29.0 L RDW 20.2 H Plt Count 519 H Neut % (Auto) 74.7 Lymph % (Auto) 12.4 L [place] % (Auto) 12.3 Eos % (Auto) 0.3 L Baso % (Auto) 0.3 Neut # (Auto) 47134 H Lymph # (Auto) 3000 [place] # (Auto) 3000 H Eos # (Auto) 100 Baso # (Auto) 100 RBC Morphology See below Anisocytosis 1+ H Microcytosis 2+ H PT 15.3 H INR 1.3 Sodium 136 L Potassium 3.2 L Chloride 90 L Carbon Dioxide 38 H BUN 38 H Creatinine 0.78 Estimated GFR > 60 BUN/Creatinine Ratio 48.7 H Glucose 124 H Calcium 8.3 L Total Bilirubin 0.6 AST 253 H ALT 676 H Alkaline Phosphatase 159 H Total Protein 7.3 Albumin 3.4 L Globulin 3.9 Albumin/Globulin Ratio 0.9 L PFSH Medical History CHF (congestive heart failure) Diabetes Hyperlipidemia Hypertension Peripheral neuropathy PVD (peripheral vascular disease) TIA (transient ischemic attack) Surgical History H/O angioplasty History of cholecystectomy Social History household members: caregiver Smoking Status: Current every day smoker alcohol intake: never Assessment & Plan Assessment & Plan narrative: # acute hypoxic respiratory failure 2/2 CHF exacerbation -presents with worsening dyspnea, fatigue, elevated BNP of 4000 up from 700 prior, hypoxic to 65% on room air. Peripheral edema on exam. -continue HFNC and wean as able -IV lasix 40 BID, continue -strict I/O's -echo ordered, previous EF 60-65% with mild LVH, severely elevated RVSP of 82 so likely a component of OHS and MARTA # severely elevated LFT's, improving -AST up to 1997 and ALT 1321, likely secondary to hepatic congestion from CHF. INR 1.5. -tylenol level normal -GI contacted by ED and recommended just trending labs, transfer if INR and LFT's continue to rise -treat CHF as above -avoid hepatotoxic agents -trend CMP's -LFTs improving with diuresis -holding statin # lactic acidemia, now resolved -initial LA of 3.9 and improved with diuresis to normal # elevated troponin -secondary to CHF exac and demand ischemia -trop downtrended # hyperkalemia, resolved -initially 5.9 but improved to 5.1 without treatment, now normal -monitor # history of CVA -continue plavix, hold statin due to transaminitis # chronic microcytic anemia, acute, present on admission -Hgb 9.1 with MCV 65 all chronic -continue po iron # chronic leukocytosis -per notes follows with hematology and source of leukocytosis unclear as patient refused bone marrow biopsy -UA negative for UTI # DM2 -continue home lantus but at 40 BID -A1c 9.2% earlier this month -high dose SSI # PVD -continue plavix, statin # HTN -continue losartan # chronic LE diabetic foot ulcers -continue wound care, does not appear to be actively infected. # insomnia, depression -continue celexa, remeron, and ambien Code status is DNR. DVT prophylaxis with lovenox. Proxy is Ann granddaughter. Dispo: Pending improvement in oxygenation. Likely 2 more days. Quality VTE Deep Vein Thrombosis/Pulmonary Embolism Present on Admission: No
[2022-09-25] MEDS: POTASSIUM CHLORIDE 20 MEQ TAB 40 MEQ PO (09:45)
[2022-09-25] MEDS: cefTRIAXone 1,000 MG in SODIUM CHLORIDE 0.9% 100 ML 200 MG IV (09:55)
[2022-09-25] MEDS: ALBUTEROL/IPRATROPIUM 3 ML AMPUL INH ×3 (10:00→19:03)
[2022-09-25] MEDS: INSULIN LISPRO 100 UNIT/ML 3ML VIAL SUBCUT (12:13)
[2022-09-25] MEDS: OXYCODONE IR 5 MG TABLET PO (12:27)
--- NOTE | 2022-09-25 16:08 | CM.DPC ---
DCP Cont: Per MD, pt with UTI and now on IV-Abx and is requiring HHFNC 40L and confused at this time. Pt not medically stable and cannot d/c on HHFNC to SNF or back to [facility]. SW to follow closely as initial plan had been for pt to return to [facility] as she is alea lift at baseline and her [employer] could be a barrier to SNF at [facility]. SW to follow closely for pt progress to determine return to [facility] vs SNF. ANNIE Stoll
[2022-09-25] MEDS: ONDANSETRON 4 MG/2 ML INJ IV ×2 (17:11→20:20)
[2022-09-25] MEDS: MIRTAZAPINE 15 MG TABLET 7.5 MG PO (20:19)
[2022-09-25] MEDS: ZOLPIDEM 5 MG TABLET 10 MG PO (20:19)
[2022-09-25] MEDS: MELATONIN 3 MG TABLET 6 MG PO (20:20)
[2022-09-25] MEDS: SENNOSIDES 8.6 MG TABLET PO (21:41)
[2022-09-25] MEDS: FAMOTIDINE 20 MG TABLET PO (21:42)
[2022-09-26] VITALS (22 sets, daily range): BP systolic 120–148; BP diastolic 58–71; PULSE 81–112; RESP 16–26; TEMP 35.7–36.8; O2SAT 91–98
[2022-09-26 04:49] LABS: Add Manual Diff / Slide Review NO; Basophils Absolute Auto 100 /uL (0-100); Basophils Percent Auto 0.6 % (0-2); Eosinophils Absolute Auto 100 /uL (0-450); Eosinophils Percent Auto 0.5 % (2-4); Hematocrit 33.3 % (36-46); Hemoglobin 9.5 g/dL (12.0-16.0); Lymphocytes Absolute Auto 2300 /uL (1100-4500); Lymphocytes Percent Auto 10.3 % (25-40); Mean Corpuscular HGB Conc 28.6 % (30-36); Mean Corpuscular Hemoglobin 18.6 PG (26-34); Monocytes Absolute Auto 2500 /uL (0-900); Monocytes Percent Auto 11.3 % (3-14); Neutrophils Absolute Auto 17100 /uL (1500-7000); Neutrophils Percent Auto 77.3 % (50-75); Platelet Count 496 X10^3/uL (150-400); Red Blood Cell Count 5.13 X10^6/uL (4.0-5.2); White Blood Cell Count 22.1 X10^3/uL (4.5-11.0)
[2022-09-26 05:01] LABS: Alanine Aminotransferase 401 IU/L (<35); Albumin 3.3 g/dL (3.5-5.0); Albumin Globulin Ratio 0.9 (1.0-2.8); Alkaline Phosphatase 159 U/L (38-126); Aspartate Aminotransferase 116 IU/L (14-36); BUN Creatinine Ratio 60.6 (6-22); Bilirubin Total 0.6 mg/dL (0.2-1.3); Blood Urea Nitrogen 40 mg/dL (7-17); Calcium 7.9 mg/dL (8.4-10.2); Chloride 90 mmol/L (98-107); Estimated Glomerular Filt Rate > 60 mL/min (>60); Globulin 3.5 g/dL (1.7-4.1); Glucose 285 mg/dL (80-110); HEMOLYSIS < 15 (0-50); Sodium 136 mmol/L (137-145); Total Protein 6.8 g/dL (6.3-8.2)
[2022-09-26 05:04] LABS: Anisocytosis 2+; Microcytosis 2+
[2022-09-26 05:08] LABS: Carbon Dioxide 39 mmol/L (22-32)
[2022-09-26] MEDS: PANTOPRAZOLE DR 40 MG TABLET PO (07:31)
[2022-09-26] MEDS: INSULIN LISPRO 100 UNIT/ML 3ML VIAL SUBCUT ×2 (07:31→12:40)
[2022-09-26] MEDS: FUROSEMIDE 40 MG/4 ML VIAL IV ×2 (09:01→15:36)
[2022-09-26] MEDS: polyethylene glycoL 3350 17 GM POWD.PACK PO (09:01)
[2022-09-26] MEDS: LOSARTAN 25 MG TABLET PO (09:01)
[2022-09-26] MEDS: POTASSIUM CHLORIDE 20 MEQ TAB 40 MEQ PO (09:01)
[2022-09-26] MEDS: ENOXAPARIN 40 MG/0.4 ML SYRINGE SUBCUT ×2 (09:02→20:41)
[2022-09-26] MEDS: FAMOTIDINE 20 MG TABLET PO ×2 (09:02→20:41)
[2022-09-26] MEDS: CITALOPRAM 10 MG TABLET 40 MG PO (09:02)
[2022-09-26] MEDS: CYCLOBENZAPRINE 10 MG TABLET PO ×2 (09:02→20:42)
[2022-09-26] MEDS: SODIUM CHLORIDE 0.9% FLUSH 10 ML IV ×2 (09:02→20:42)
[2022-09-26] MEDS: SENNOSIDES 8.6 MG TABLET PO (09:02)
[2022-09-26] MEDS: CLOPIDOGREL 75 MG TABLET PO (09:02)
[2022-09-26] MEDS: INSULIN GLARGINE 100 UNIT/ML 3ML PEN 40 UNIT SUBCUT (09:03)
[2022-09-26] MEDS: ALBUTEROL/IPRATROPIUM 3 ML AMPUL INH ×3 (09:30→20:03)
[2022-09-26] MEDS: cefTRIAXone 1,000 MG in SODIUM CHLORIDE 0.9% 100 ML 200 MG IV (10:11)
[2022-09-26] MEDS: OXYCODONE IR 5 MG TABLET PO (10:13)
[2022-09-26 11:59] LABS: HCO3 ABG 40 mmol/L (23-27); PCO2 ABG 48.7 mmHg (35-45); PO2 ABG 90 mmHg (80-100)
[2022-09-26 12:00] LABS: Fractionated Inspired Oxygen 28; Oxygen Saturation ABG 98 % (95-100); TCO2 ABG 41 mmol/L (23-27); pH ABG 7.52 (7.35-7.45)
--- NOTE | 2022-09-26 18:19 | PM.PN.1 ---
Subjective Subjective Interval history: Patient weaned to 2L NC from HFNC. She is diuresing well. Has no complaints. Exam Vital Signs (past 8 hours): - 09/26/22 12:52 09/26/22 13:07 09/26/22 13:53 Temperature 97.1 F L Pulse Rate 86 88 Respiratory Rate 24 22 Blood Pressure 127/67 127/67 Pulse Oximetry 94 92 93 Oxygen Delivery Method Oxygen Flow Rate Fraction of Inspired Oxygen 30 09/26/22 13:57 09/26/22 15:29 09/26/22 16:00 Temperature 97.6 F Pulse Rate 82 89 Respiratory Rate 16 21 Blood Pressure 128/63 Pulse Oximetry 98 98 95 Oxygen Delivery Method Oximask Oximask Oxygen Flow Rate 3 2 2 Fraction of Inspired Oxygen Fraction of Inspired Oxygen 30 SaO2/FiO2 Ratio 332 Oxygen Delivery Method Oximask Oxygen Flow Rate 2 Narrative Exam Narrative: Gen: alert, cooperative, NAD Lungs: right lower crackles Ext: trace edema LEs, chronic unstageable pressure sores on ankles, feet Neuro: nl speech and affect Objective Labs 09/26/22 04:35 09/26/22 04:35 Labs: Laboratory Results - last 24 hr 09/26/22 09/26/22 09/26/22 04:35 04:35 11:50 WBC 22.1 H RBC 5.13 Hgb 9.5 L Hct 33.3 L MCV 65.0 L MCH 18.6 L MCHC 28.6 L RDW 20.0 H Plt Count 496 H Neut % (Auto) 77.3 H Lymph % (Auto) 10.3 L [place] % (Auto) 11.3 Eos % (Auto) 0.5 L Baso % (Auto) 0.6 Neut # (Auto) 69832 H Lymph # (Auto) 2300 [place] # (Auto) 2500 H Eos # (Auto) 100 Baso # (Auto) 100 RBC Morphology See below Anisocytosis 2+ H Microcytosis 2+ H ABG pH 7.52 H ABG pCO2 48.7 H ABG pO2 90 ABG HCO3 40 H ABG Total CO2 41 H ABG O2 Saturation 98 ABG Base Excess 17.0 H FiO2 28 Sodium 136 L Potassium 4.0 Chloride 90 L Carbon Dioxide 39 H BUN 40 H Creatinine 0.66 Estimated GFR > 60 BUN/Creatinine Ratio 60.6 H Glucose 285 H D Calcium 7.9 L Total Bilirubin 0.6 AST 116 H ALT 401 H Alkaline Phosphatase 159 H Total Protein 6.8 Albumin 3.3 L Globulin 3.5 Albumin/Globulin Ratio 0.9 L PFSH Medical History CHF (congestive heart failure) Diabetes Hyperlipidemia Hypertension Peripheral neuropathy PVD (peripheral vascular disease) TIA (transient ischemic attack) Surgical History H/O angioplasty History of cholecystectomy Social History household members: caregiver Smoking Status: Current every day smoker alcohol intake: never Assessment & Plan Assessment & Plan narrative: # acute hypoxic respiratory failure 2/2 CHF exacerbation -presents with worsening dyspnea, fatigue, elevated BNP of 4000 up from 700 prior, hypoxic to 65% on room air. Peripheral edema on exam. -continue HFNC and wean as able -IV lasix 40 BID, continue -strict I/O's -echo ordered, previous EF 60-65% with mild LVH, severely elevated RVSP of 82 so likely a component of OHS and MARTA -net neg -8.9L since admission -now weaned to 2L NC # severely elevated LFT's, improving -AST up to 1998 and ALT 1321, likely secondary to hepatic congestion from CHF. INR 1.5. -tylenol level normal -GI contacted by ED and recommended just trending labs, transfer if INR and LFT's continue to rise -treat CHF as above -avoid hepatotoxic agents -trend CMP's -LFTs improving with diuresis -holding statin # lactic acidemia, now resolved -initial LA of 3.9 and improved with diuresis to normal # elevated troponin -secondary to CHF exac and demand ischemia -trop downtrended # hyperkalemia, resolved -initially 5.9 but improved to 5.1 without treatment, now normal -monitor # history of CVA -continue plavix, hold statin due to transaminitis # chronic microcytic anemia, acute, present on admission -Hgb 9.1 with MCV 65 all chronic -continue po iron # chronic leukocytosis -per notes follows with hematology and source of leukocytosis unclear as patient refused bone marrow biopsy -UA negative for UTI # DM2 -continue home lantus but at 40 BID -A1c 9.2% earlier this month -high dose SSI # PVD -continue plavix, statin # HTN -continue losartan # chronic LE diabetic foot ulcers -continue wound care, does not appear to be actively infected. # insomnia, depression -continue celexa, remeron, and ambien Code status is DNR. DVT prophylaxis with lovenox. Proxy is Ann granddaughter. Dispo: Pending improvement in oxygenation. Likely 1-2 more days. Quality VTE Deep Vein Thrombosis/Pulmonary Embolism Present on Admission: No
[2022-09-26] MEDS: MIRTAZAPINE 15 MG TABLET 7.5 MG PO (20:41)
[2022-09-26] MEDS: ZOLPIDEM 5 MG TABLET 10 MG PO (20:42)
[2022-09-27] VITALS (9 sets, daily range): BP systolic 116–136; BP diastolic 59–76; PULSE 83–90; RESP 16–28; TEMP 36.1–37; O2SAT 93–96
[2022-09-27 05:15] LABS: Add Manual Diff / Slide Review NO; Basophils Absolute Auto 100 /uL (0-100); Basophils Percent Auto 0.6 % (0-2); Eosinophils Absolute Auto 400 /uL (0-450); Eosinophils Percent Auto 2.4 % (2-4); Hematocrit 33.7 % (36-46); Hemoglobin 9.7 g/dL (12.0-16.0); Lymphocytes Absolute Auto 2200 /uL (1100-4500); Lymphocytes Percent Auto 12.3 % (25-40); Mean Corpuscular HGB Conc 28.7 % (30-36); Mean Corpuscular Hemoglobin 18.6 PG (26-34); Mean Corpuscular Volume 64.7 fL (80-100); Monocytes Absolute Auto 1900 /uL (0-900); Monocytes Percent Auto 10.2 % (3-14); Neutrophils Absolute Auto 13600 /uL (1500-7000); Neutrophils Percent Auto 74.5 % (50-75); Platelet Count 482 X10^3/uL (150-400); Red Cell Distribution Width 20.5 % (11.6-14.8); White Blood Cell Count 18.2 X10^3/uL (4.5-11.0)
[2022-09-27 05:25] LABS: Alanine Aminotransferase 294 IU/L (<35); Albumin 3.5 g/dL (3.5-5.0); Alkaline Phosphatase 143 U/L (38-126); Aspartate Aminotransferase 66 IU/L (14-36); BUN Creatinine Ratio 42.2 (6-22); Bilirubin Total 0.5 mg/dL (0.2-1.3); Blood Urea Nitrogen 27 mg/dL (7-17); Calcium 8.2 mg/dL (8.4-10.2); Chloride 91 mmol/L (98-107); Estimated Glomerular Filt Rate > 60 mL/min (>60); Globulin 3.6 g/dL (1.7-4.1); Glucose 142 mg/dL (80-110); HEMOLYSIS < 15 (0-50); Potassium 4.3 mmol/L (3.4-5.1); Sodium 136 mmol/L (137-145); Total Protein 7.1 g/dL (6.3-8.2)
[2022-09-27 05:31] LABS: Carbon Dioxide 39 mmol/L (22-32)
[2022-09-27 05:34] LABS: Anisocytosis 2+; Microcytosis 2+
[2022-09-27] MEDS: PANTOPRAZOLE DR 40 MG TABLET PO (06:15)
--- NOTE | 2022-09-27 06:50 | PC.NURSE ---
[facility] Florist Note-Patient has been drowsy, but rouses for care and is oriented x3. HS BG 107, Lantus held per patient request. SpO2 80s-90s on 2-3L Oximask, apnea noted.
[2022-09-27] MEDS: CYCLOBENZAPRINE 10 MG TABLET PO ×2 (08:42→21:13)
[2022-09-27] MEDS: POTASSIUM CHLORIDE 20 MEQ TAB 40 MEQ PO (08:42)
[2022-09-27] MEDS: FUROSEMIDE 40 MG/4 ML VIAL IV ×2 (08:42→17:00)
[2022-09-27] MEDS: CITALOPRAM 10 MG TABLET 40 MG PO (08:42)
[2022-09-27] MEDS: CLOPIDOGREL 75 MG TABLET PO (08:42)
[2022-09-27] MEDS: ENOXAPARIN 40 MG/0.4 ML SYRINGE SUBCUT ×2 (08:43→21:14)
[2022-09-27] MEDS: LOSARTAN 25 MG TABLET PO (08:43)
[2022-09-27] MEDS: FAMOTIDINE 20 MG TABLET PO ×2 (08:43→21:13)
[2022-09-27] MEDS: INSULIN LISPRO 100 UNIT/ML 3ML VIAL SUBCUT ×2 (08:49→21:14)
[2022-09-27] MEDS: SODIUM CHLORIDE 0.9% FLUSH 10 ML IV ×2 (08:50→21:15)
[2022-09-27] MEDS: INSULIN GLARGINE 100 UNIT/ML 3ML PEN 40 UNIT SUBCUT ×2 (08:50→21:14)
[2022-09-27] MEDS: ALBUTEROL/IPRATROPIUM 3 ML AMPUL INH ×3 (10:06→18:53)
[2022-09-27] MEDS: cefTRIAXone 1,000 MG in SODIUM CHLORIDE 0.9% 100 ML 200 MG IV (11:05)
--- NOTE | 2022-09-27 12:14 | P.PN_ITS ---
Subjective Subjective Interval history: Generally feeling fatigued but slightly better. Just wanting to nap inte rmittently. No new complaints. Exam Vital Signs (past 8 hours): - 09/27/22 08:43 09/27/22 08:00 09/27/22 10:10 Temperature 97.0 F L Pulse Rate 85 90 Respiratory Rate 28 H 18 Blood Pressure 136/67 136/67 Pulse Oximetry 96 93 Oxygen Delivery Method Nasal Cannula Oxygen Flow Rate 2 2 Fraction of Inspired Oxygen 30 SaO2/FiO2 Ratio 332 Oxygen Delivery Method Nasal Cannula Oxygen Flow Rate 2 Narrative Exam Narrative: Gen: alert, cooperative, NAD, appears to be in no acute medical distress. Lungs: right lower crackles minimal. Otherwise adequate air entry throughout the lung welsh. Ext: trace edema LEs, chronic unstageable pressure sores on ankles, feet Neuro: nl speech and affect PSYCH: no signs of acute depression or mood change Objective Labs 09/27/22 04:40 09/27/22 04:40 Labs: Laboratory Results - last 24 hr 09/27/22 09/27/22 04:40 04:40 WBC 18.2 H RBC 5.20 Hgb 9.7 L Hct 33.7 L MCV 64.7 L MCH 18.6 L MCHC 28.7 L RDW 20.5 H Plt Count 482 H Neut % (Auto) 74.5 Lymph % (Auto) 12.3 L [place] % (Auto) 10.2 Eos % (Auto) 2.4 Baso % (Auto) 0.6 Neut # (Auto) 33975 H Lymph # (Auto) 2200 [place] # (Auto) 1900 H Eos # (Auto) 400 Baso # (Auto) 100 RBC Morphology See below Anisocytosis 2+ H Microcytosis 2+ H Sodium 136 L Potassium 4.3 Chloride 91 L Carbon Dioxide 39 H BUN 27 H Creatinine 0.64 Estimated GFR > 60 BUN/Creatinine Ratio 42.2 H Glucose 142 H D Calcium 8.2 L Total Bilirubin 0.5 AST 66 H ALT 294 H Alkaline Phosphatase 143 H Total Protein 7.1 Albumin 3.5 Globulin 3.6 Albumin/Globulin Ratio 1.0 PFSH Medical History CHF (congestive heart failure) Diabetes Hyperlipidemia Hypertension Peripheral neuropathy PVD (peripheral vascular disease) TIA (transient ischemic attack) Surgical History H/O angioplasty History of cholecystectomy Social History household members: caregiver Smoking Status: Current every day smoker alcohol intake: never Assessment & Plan Assessment & Plan narrative: # acute hypoxic respiratory failure 2/2 CHF exacerbation -presents with worsening dyspnea, fatigue, elevated BNP of 4000 up from 700 prior, hypoxic to 65% on room air. Peripheral edema on exam. Currently O2 sat of 93% on 2 liters/minute -continue HFNC and wean as able -has been weaned to 2 L per minute nasal prongs -IV lasix 40 BID, continue -strict I/O's -echo ordered, previous EF 60-65% with mild LVH, severely elevated RVSP of 82 so likely a component of OHS and MARTA, echo remains pending -now weaned to 2L NC # severely elevated LFT's, improving -AST up to 1998 and ALT 1321, likely secondary to hepatic congestion from CHF. INR 1.5. Today AST 66 and ALT 294. -tylenol level normal -GI contacted by ED and recommended just trending labs, transfer if INR and LFT's continue to rise, follow INR and LFTs tomorrow -treat CHF as above -avoid hepatotoxic agents -trend CMP's -LFTs improving with diuresis -holding statin # lactic acidemia, now resolved -initial LA of 3.9 and improved with diuresis to normal # elevated troponin -secondary to CHF exac and demand ischemia -trop downtrended, follow tomorrow # hyperkalemia, resolved -initially 5.9 but improved to 5.1 without treatment, now normal -monitor # history of CVA -continue plavix, hold statin due to transaminitis # chronic microcytic anemia, acute, present on admission -Hgb 9.1 with MCV 65 all chronic -continue po iron # chronic leukocytosis -per notes follows with hematology and source of leukocytosis unclear as patient refused bone marrow biopsy -E coli UTI, possible source of leukocytosis # DM2 -continue home lantus but at 40 BID -A1c 9.2% earlier this month -high dose SSI # PVD -continue plavix, statin # HTN -continue losartan # chronic LE diabetic foot ulcers -continue wound care, does not appear to be actively infected. # insomnia, depression -continue celexa, remeron, and ambien Code status is DNR. DVT prophylaxis with lovenox. Proxy is Ann granddaughter. Dispo: Pending improvement in oxygenation. Discharge will be to eventually to [facility] however may need a SNF prior to going to [facility]. Quality VTE Deep Vein Thrombosis/Pulmonary Embolism Present on Admission: No
--- NOTE | 2022-09-27 13:38 | CM.DPNOTE ---
Discharge Planning Note: 62 year old female with respiratory failure, weaning off O2, currently on 2 LPM NC. E coli UTI on IVABs. Friend Neftaly in room. Discussed returning to [facility] assisted living (she uses a alea there as well) vs [facility]. She wants to go back to [facility] and is resistant to SNF. Educated that we will need to see if when she has discharge orders if [facility] will accept her back or not. Her POA is Ann her grandaughter. Plan: Continue following up with discharge plan. Return to [facility] vs SNF. Yuki Soler, RN/DCP
[2022-09-27] MEDS: ZOLPIDEM 5 MG TABLET 10 MG PO (21:12)
[2022-09-27] MEDS: MIRTAZAPINE 15 MG TABLET 7.5 MG PO (21:12)
[2022-09-27] MEDS: OXYCODONE IR 5 MG TABLET PO (21:31)
[2022-09-28] VITALS (10 sets, daily range): BP systolic 109–141; BP diastolic 57–75; PULSE 79–93; RESP 16–27; TEMP 35.9–36.2; O2SAT 90–98
[2022-09-28 04:55] LABS: Add Manual Diff / Slide Review NO; Basophils Absolute Auto 100 /uL (0-100); Basophils Percent Auto 0.5 % (0-2); Eosinophils Absolute Auto 600 /uL (0-450); Eosinophils Percent Auto 2.7 % (2-4); Hematocrit 33.6 % (36-46); Hemoglobin 9.7 g/dL (12.0-16.0); Lymphocytes Absolute Auto 2300 /uL (1100-4500); Lymphocytes Percent Auto 10.6 % (25-40); Mean Corpuscular HGB Conc 28.8 % (30-36); Mean Corpuscular Hemoglobin 18.6 PG (26-34); Mean Corpuscular Volume 64.4 fL (80-100); Monocytes Absolute Auto 2100 /uL (0-900); Monocytes Percent Auto 9.6 % (3-14); Neutrophils Absolute Auto 17000 /uL (1500-7000); Neutrophils Percent Auto 76.6 % (50-75); Platelet Count 466 X10^3/uL (150-400); Red Blood Cell Count 5.22 X10^6/uL (4.0-5.2); Red Cell Distribution Width 20.2 % (11.6-14.8); White Blood Cell Count 22.2 X10^3/uL (4.5-11.0)
[2022-09-28 05:01] LABS: INR 1.1 (0.9-1.3); Prothrombin Time 12.8 SECONDS (10.1-12.7)
[2022-09-28 05:08] LABS: Alanine Aminotransferase 218 IU/L (<35); Albumin 3.7 g/dL (3.5-5.0); Alkaline Phosphatase 168 U/L (38-126); Aspartate Aminotransferase 41 IU/L (14-36); Bilirubin Total 0.6 mg/dL (0.2-1.3); Bilirubin Unconjugated 0.4 mg/dL (0.0-1.1); Globulin 3.7 g/dL (1.7-4.1); HEMOLYSIS < 15 (0-50); Total Protein 7.4 g/dL (6.3-8.2)
[2022-09-28 05:18] LABS: NT-proBNP (BNP-Adult 18+) 203 pg/mL (<125); Troponin I < 0.012 ng/mL (0.01-0.034)
[2022-09-28 05:36] LABS: Anisocytosis 2+; Hypochromasia 2+; Microcytosis 2+
[2022-09-28 06:04] LABS: BUN Creatinine Ratio 35.6 (6-22); Blood Urea Nitrogen 21 mg/dL (7-17); Calcium 8.4 mg/dL (8.4-10.2); Chloride 89 mmol/L (98-107); Estimated Glomerular Filt Rate > 60 mL/min (>60); Glucose 158 mg/dL (80-110); HEMOLYSIS < 15 (0-50); Potassium 4.2 mmol/L (3.4-5.1); Sodium 134 mmol/L (137-145)
[2022-09-28 06:11] LABS: Carbon Dioxide 36 mmol/L (22-32)
[2022-09-28] MEDS: PANTOPRAZOLE DR 40 MG TABLET PO (06:53)
[2022-09-28] MEDS: ALBUTEROL/IPRATROPIUM 3 ML AMPUL INH ×4 (07:28→23:34)
[2022-09-28] MEDS: FUROSEMIDE 40 MG/4 ML VIAL IV (08:30)
[2022-09-28] MEDS: INSULIN LISPRO 100 UNIT/ML 3ML VIAL SUBCUT ×3 (08:30→17:35)
[2022-09-28] MEDS: CITALOPRAM 10 MG TABLET 40 MG PO (08:31)
[2022-09-28] MEDS: POTASSIUM CHLORIDE 20 MEQ TAB 40 MEQ PO (08:31)
[2022-09-28] MEDS: CLOPIDOGREL 75 MG TABLET PO (08:31)
[2022-09-28] MEDS: ENOXAPARIN 40 MG/0.4 ML SYRINGE SUBCUT ×2 (08:32→20:41)
[2022-09-28] MEDS: FAMOTIDINE 20 MG TABLET PO ×2 (08:32→20:42)
[2022-09-28] MEDS: CYCLOBENZAPRINE 10 MG TABLET PO ×2 (08:32→20:41)
[2022-09-28] MEDS: INSULIN GLARGINE 100 UNIT/ML 3ML PEN 40 UNIT SUBCUT (08:32)
[2022-09-28] MEDS: LOSARTAN 25 MG TABLET PO (08:33)
[2022-09-28] MEDS: SODIUM CHLORIDE 0.9% FLUSH 10 ML IV ×2 (08:33→20:41)
[2022-09-28] MEDS: CODEINE/ACETAMINOPHEN 30/300 TABLET 1 TAB PO (10:05)
[2022-09-28] MEDS: cefTRIAXone 1,000 MG in SODIUM CHLORIDE 0.9% 100 ML 200 MG IV (10:33)
--- NOTE | 2022-09-28 12:00 | PT-IP ANOTE ---
Received PT orders and completed chart review. Per pt's LTC setting, she is a dependent transfer at baseline with use of alea vs sit to stand machine. Discussed pt at AM rounds and hospitalist physician agreed no skilled PT needs. Will discharge orders at this time.
--- NOTE | 2022-09-28 12:11 | CM.DPC ---
DCP continued: CM Called Admin line [phone] Ext: [phone] at [facility] and spoke with Andre who stated they can accept patient back at DC. Andre as for staff to call admin line again day of DC just to update director of informatics of DC plan phone number [phone] ext [phone] CM team will continue to follow to assist with any new DC planning needs that may arise. Chelsea Barrow RNsolution coordinator
--- NOTE | 2022-09-28 13:45 | P.PN_ITS ---
Subjective Subjective Interval history: Patient having a lot more energy today and eating more. Had a difficult bowel movement with the hard impacted large stool. Patient states that this is common for her. Discussed with her about having a better bowel routine medication regimen. Exam Vital Signs (past 8 hours): - 09/28/22 07:30 09/28/22 08:33 09/28/22 08:00 Temperature 96.8 F L Pulse Rate 85 Respiratory Rate 21 Blood Pressure 120/62 120/62 Pulse Oximetry 97 92 Oxygen Delivery Method Nasal Cannula Oxygen Flow Rate 3 1.5 09/28/22 07:00 Temperature Pulse Rate Respiratory Rate Blood Pressure Pulse Oximetry Oxygen Delivery Method Room Air Oxygen Flow Rate Fraction of Inspired Oxygen 30 SaO2/FiO2 Ratio 332 Oxygen Delivery Method Nasal Cannula Oxygen Flow Rate 1.5 Narrative Exam Narrative: Gen: alert, cooperative, NAD, appears to be in no acute medical distress. Lungs: right lower crackles minimal.? Otherwise adequate air entry throughout the lung welsh. Ext: trace edema LEs, chronic unstageable pressure sores on ankles, feet Neuro: nl speech and affect PSYCH: no signs of acute depression or mood change Objective Labs 09/28/22 04:15 09/28/22 04:15 Labs: Laboratory Results - last 24 hr 09/28/22 09/28/22 09/28/22 04:15 04:15 04:15 WBC RBC Hgb Hct MCV MCH MCHC RDW Plt Count Neut % (Auto) Lymph % (Auto) [place] % (Auto) Eos % (Auto) Baso % (Auto) Neut # (Auto) Lymph # (Auto) [place] # (Auto) Eos # (Auto) Baso # (Auto) RBC Morphology Hypochromasia Anisocytosis Microcytosis PT 12.8 H INR 1.1 Sodium Potassium Chloride Carbon Dioxide BUN Creatinine Estimated GFR BUN/Creatinine Ratio Glucose Calcium Total Bilirubin 0.6 Conjugated Bilirubin 0.0 Unconjugated Bilirubin 0.4 AST 41 H ALT 218 H Alkaline Phosphatase 168 H Troponin I < 0.012 NT-Pro-B Natriuret Pep 203 H Total Protein 7.4 Albumin 3.7 Globulin 3.7 Albumin/Globulin Ratio 1.0 09/28/22 09/28/22 04:15 04:15 WBC 22.2 H RBC 5.22 H Hgb 9.7 L Hct 33.6 L MCV 64.4 L MCH 18.6 L MCHC 28.8 L RDW 20.2 H Plt Count 466 H Neut % (Auto) 76.6 H Lymph % (Auto) 10.6 L [place] % (Auto) 9.6 Eos % (Auto) 2.7 Baso % (Auto) 0.5 Neut # (Auto) 82793 H Lymph # (Auto) 2300 [place] # (Auto) 2100 H Eos # (Auto) 600 H Baso # (Auto) 100 RBC Morphology See below Hypochromasia 2+ H Anisocytosis 2+ H Microcytosis 2+ H PT INR Sodium 134 L Potassium 4.2 Chloride 89 L Carbon Dioxide 36 H BUN 21 H Creatinine 0.59 Estimated GFR > 60 BUN/Creatinine Ratio 35.6 H Glucose 158 H Calcium 8.4 Total Bilirubin Conjugated Bilirubin Unconjugated Bilirubin AST ALT Alkaline Phosphatase Troponin I NT-Pro-B Natriuret Pep Total Protein Albumin Globulin Albumin/Globulin Ratio PFSH Medical History CHF (congestive heart failure) Diabetes Hyperlipidemia Hypertension Peripheral neuropathy PVD (peripheral vascular disease) TIA (transient ischemic attack) Surgical History H/O angioplasty History of cholecystectomy Social History household members: caregiver Smoking Status: Current every day smoker alcohol intake: never Assessment & Plan Assessment & Plan narrative: # acute hypoxic respiratory failure 2/2 CHF exacerbation -presents with worsening dyspnea, fatigue, elevated BNP of 4000 up from 700 prior, hypoxic to 65% on room air. Peripheral edema on exam.? Currently O2 sat of 92% on 1.5 liters/minute -this is improving. BNP has decreased to 203. Transitioned to oral furosemide 40 mg b.i.d. -continue HFNC and wean as able -has been weaned to 1.5 L per minute nasal prongs -IV lasix 40 BID, continue, changed today to oral furosemide 40 mg p.o. b.i.d. -strict I/O's -echo ordered, previous EF 60-65% with mild LVH, severely elevated RVSP of 82 so likely a component of OHS and MARTA, echo remains pending -now weaned to 1.5 L NC # severely elevated LFT's, improving -AST up to 1998 and ALT 1321, likely secondary to hepatic congestion from CHF. INR 1.5.? Today AST 66 and ALT 294. -tylenol level normal -GI contacted by ED and recommended just trending labs, transfer if INR and LFT's continue to rise, follow INR which is normal today and LFTs improved as well. -treat CHF as above -avoid hepatotoxic agents -trend CMP's -LFTs improving with diuresis -holding statin # lactic acidemia, now resolved -initial LA of 3.9 and improved with diuresis to normal # elevated troponin -secondary to CHF exac and demand ischemia -trop downtrended, today is normal # hyperkalemia, resolved -initially 5.9 but improved to 5.1 without treatment, now normal -monitor # history of CVA -continue plavix, hold statin due to transaminitis # chronic microcytic anemia, acute, present on admission -Hgb 9.1 with MCV 65 all chronic -continue po iron # chronic leukocytosis -per notes follows with hematology and source of leukocytosis unclear as patient refused bone marrow biopsy -E coli UTI, possible source of leukocytosis # DM2 -continue home lantus but at 40 BID -A1c 9.2% earlier this month -high dose SSI # PVD -continue plavix, statin # HTN -continue losartan # chronic LE diabetic foot ulcers -continue wound care, does not appear to be actively infected. # insomnia, depression -continue celexa, remeron, and ambien Code status is DNR. DVT prophylaxis with lovenox. Proxy is Ann granddaughter. Dispo: Pending improvement in oxygenation.? Discharge will be to eventually to [facility] however may need a SNF prior to going to [facility]. Quality VTE Deep Vein Thrombosis/Pulmonary Embolism Present on Admission: No
--- NOTE | 2022-09-28 13:53 | PC.NURSE ---
1140--pt up to [facility] [place] w/ Luiz lift; unable to have bowel movement; unable to fit lubricated finger around hard ball of stool; pt moved back to bed after approx 20 minutes; Dr Garcia notified; pt manually disimpacted; 3 large, hard, balls of stool removed; discussed home bowel management with patient
[2022-09-28] MEDS: polyethylene glycoL 3350 17 GM POWD.PACK PO (14:45)
[2022-09-28] MEDS: CALCIUM CARBONATE 500 MG TAB 1000 MG PO ×2 (16:20→22:05)
[2022-09-28] MEDS: FUROSEMIDE 40 MG TABLET PO (17:20)
[2022-09-28] MEDS: OXYCODONE IR 5 MG TABLET PO (20:41)
[2022-09-28] MEDS: MELATONIN 3 MG TABLET 6 MG PO (20:42)
[2022-09-28] MEDS: ZOLPIDEM 5 MG TABLET 10 MG PO (20:42)
[2022-09-28] MEDS: MIRTAZAPINE 15 MG TABLET 7.5 MG PO (20:42)
[2022-09-28] MEDS: SENNOSIDES 8.6 MG TABLET 17.2 MG PO (20:42)
[2022-09-29] VITALS (7 sets, daily range): BP systolic 100–126; BP diastolic 50–63; PULSE 82–101; RESP 16–23; TEMP 35.9–36.4; O2SAT 93–99
[2022-09-29 04:52] LABS: Add Manual Diff / Slide Review SLIDE REVIEW; Basophils Absolute Auto 100 /uL (0-100); Basophils Percent Auto 0.5 % (0-2); Eosinophils Absolute Auto 500 /uL (0-450); Eosinophils Percent Auto 2.2 % (2-4); Hematocrit 33.8 % (36-46); Lymphocytes Absolute Auto 2400 /uL (1100-4500); Lymphocytes Percent Auto 10.5 % (25-40); Mean Corpuscular HGB Conc 29.7 % (30-36); Mean Corpuscular Volume 64.1 fL (80-100); Monocytes Absolute Auto 2000 /uL (0-900); Monocytes Percent Auto 8.5 % (3-14); Neutrophils Absolute Auto 18300 /uL (1500-7000); Neutrophils Percent Auto 78.3 % (50-75); Platelet Count 457 X10^3/uL (150-400); Red Blood Cell Count 5.27 X10^6/uL (4.0-5.2); Red Cell Distribution Width 20.1 % (11.6-14.8); White Blood Cell Count 23.3 X10^3/uL (4.5-11.0)
[2022-09-29 05:02] LABS: Alanine Aminotransferase 145 IU/L (<35); Albumin 3.5 g/dL (3.5-5.0); Albumin Globulin Ratio 0.9 (1.0-2.8); Alkaline Phosphatase 156 U/L (38-126); Aspartate Aminotransferase 36 IU/L (14-36); BUN Creatinine Ratio 32.2 (6-22); Bilirubin Total 0.6 mg/dL (0.2-1.3); Blood Urea Nitrogen 19 mg/dL (7-17); Calcium 8.5 mg/dL (8.4-10.2); Chloride 90 mmol/L (98-107); Estimated Glomerular Filt Rate > 60 mL/min (>60); Globulin 3.7 g/dL (1.7-4.1); Glucose 118 mg/dL (80-110); HEMOLYSIS < 15 (0-50); Potassium 4.2 mmol/L (3.4-5.1); Sodium 133 mmol/L (137-145); Total Protein 7.2 g/dL (6.3-8.2)
[2022-09-29 05:05] LABS: C-Reactive Protein Quant 2.2 mg/dL (<1.0)
[2022-09-29 05:08] LABS: Carbon Dioxide 35 mmol/L (22-32)
[2022-09-29 05:21] LABS: Anisocytosis 2+; Hypochromasia 1+; Microcytosis 2+; Platelet Estimate Increased on smear
[2022-09-29] MEDS: ALBUTEROL/IPRATROPIUM 3 ML AMPUL INH ×2 (08:44→15:14)
[2022-09-29] MEDS: INSULIN GLARGINE 100 UNIT/ML 3ML PEN 40 UNIT SUBCUT ×2 (10:09→21:35)
[2022-09-29] MEDS: INSULIN LISPRO 100 UNIT/ML 3ML VIAL SUBCUT ×3 (10:10→21:35)
[2022-09-29] MEDS: CYCLOBENZAPRINE 10 MG TABLET PO ×2 (10:26→21:30)
[2022-09-29] MEDS: POTASSIUM CHLORIDE 20 MEQ TAB 40 MEQ PO (10:26)
[2022-09-29] MEDS: CLOPIDOGREL 75 MG TABLET PO (10:26)
[2022-09-29] MEDS: CITALOPRAM 10 MG TABLET 40 MG PO (10:27)
[2022-09-29] MEDS: FAMOTIDINE 20 MG TABLET PO ×2 (10:27→21:30)
[2022-09-29] MEDS: polyethylene glycoL 3350 17 GM POWD.PACK PO (10:27)
[2022-09-29] MEDS: SENNOSIDES 8.6 MG TABLET 17.2 MG PO ×2 (10:27→21:30)
[2022-09-29] MEDS: ENOXAPARIN 40 MG/0.4 ML SYRINGE SUBCUT ×2 (10:29→21:31)
[2022-09-29] MEDS: FUROSEMIDE 40 MG TABLET PO ×2 (10:39→18:26)
--- NOTE | 2022-09-29 10:40 | CM.DPC ---
DCP Cont: Patient could potentially be ready for discharge today, but may need home oxygen. Have called over at [facility], at extension [phone], and asked if they need to see patient prior to her going back. Patient wants to go home. P: DCP to continue to follow. Have a call out to the [facility] nurse to see if they need to see her. Laura Espinoza RN/Tracer Lathe Set Up Operator
[2022-09-29] MEDS: SODIUM CHLORIDE 0.9% FLUSH 10 ML IV (10:46)
--- NOTE | 2022-09-29 12:43 | CM.DPC ---
Addendum entered by Laura Espinoza R.N. 09/29/22 15:30: Confirmed with Romana Dennison at [facility] that they will fiber picker patient tomorrow at 11:00, respiratory is working on getting her home oxygen set up prior. Will then need to contact [facility] Addendum entered by Laura Espinoza R.N. 09/29/22 12:59: Called romana Dennison back on her cell phone, number is: [phone]. Let her know that patient needs to go today. Romana indicated that she can't take patient today, can take in the am, felt that she was gasping for air when she was in the room. Let Mercedes, director know. Left another message and stated to plan on picking up patient tomorrow. Left Precious in [employer], a message as well. Will see if they can transport with her electric scooter. Original Note: DCP Cont: Patient medically ready for discharge. Had left a message with [facility] nurse, Romana Dennison and Andre came by to see patient. Their concern is that patient needs oxygen, wants to ensure that she is voiding, and has had BM. Found out that she has no olivas, is voiding, last BM was yesterday. She is now on room air. Called Anne Marie back, left Precious, [employer], a message, and left message on Romana Dennison's voice mail. P: DCP working on getting patient discharged back to [facility] today. Laura Espinoza RN/Stem Lead Former
--- NOTE | 2022-09-29 15:43 | PM.PN.1 ---
Subjective Subjective Interval history: Patient continues to slowly improve, remains on a small amount of supplemental oxygen, seen by her assisted living facility and can return back tomorrow, still could use a bit more diuresis here today. Exam Vital Signs (past 8 hours): - 09/29/22 08:44 09/29/22 10:28 09/29/22 08:00 Temperature Pulse Rate 86 89 Respiratory Rate 16 Blood Pressure 106/59 L Pulse Oximetry 93 Oxygen Delivery Method Nasal Cannula Nasal Cannula Oxygen Flow Rate 2 09/29/22 15:16 09/29/22 15:14 Temperature 97.6 F Pulse Rate 91 H 101 H Respiratory Rate 16 23 Blood Pressure 121/59 L Pulse Oximetry 98 99 Oxygen Delivery Method Nasal Cannula Oxygen Flow Rate 2 1.5 Fraction of Inspired Oxygen 24 SaO2/FiO2 Ratio 375 Oxygen Delivery Method Nasal Cannula Oxygen Flow Rate 2 Narrative Exam Narrative: Gen: alert, cooperative, NAD, appears to be in no acute medical distress. Lungs: right lower crackles minimal.? Otherwise adequate air entry throughout the lung welsh. Ext: trace edema LEs, chronic unstageable pressure sores on ankles, feet Neuro: nl speech and affect PSYCH: no signs of acute depression or mood change Objective Labs 09/29/22 04:20 09/29/22 04:20 Labs: Laboratory Results - last 24 hr 09/29/22 09/29/22 09/29/22 04:20 04:20 04:20 WBC 23.3 H RBC 5.27 H Hgb 10.0 L Hct 33.8 L MCV 64.1 L MCH 19.0 L MCHC 29.7 L RDW 20.1 H Plt Count 457 H Neut % (Auto) 78.3 H Lymph % (Auto) 10.5 L [place] % (Auto) 8.5 Eos % (Auto) 2.2 Baso % (Auto) 0.5 Neut # (Auto) 71699 H Lymph # (Auto) 2400 [place] # (Auto) 2000 H Eos # (Auto) 500 H Baso # (Auto) 100 Platelet Estimate Increased on smear RBC Morphology See below Hypochromasia 1+ H Anisocytosis 2+ H Microcytosis 2+ H Sodium 133 L Potassium 4.2 Chloride 90 L Carbon Dioxide 35 H BUN 19 H Creatinine 0.59 Estimated GFR > 60 BUN/Creatinine Ratio 32.2 H Glucose 118 H Calcium 8.5 Total Bilirubin 0.6 AST 36 ALT 145 H Alkaline Phosphatase 156 H C-Reactive Protein 2.2 H Total Protein 7.2 Albumin 3.5 Globulin 3.7 Albumin/Globulin Ratio 0.9 L PFSH Medical History CHF (congestive heart failure) Diabetes Hyperlipidemia Hypertension Peripheral neuropathy PVD (peripheral vascular disease) TIA (transient ischemic attack) Surgical History H/O angioplasty History of cholecystectomy Social History household members: caregiver Smoking Status: Current every day smoker alcohol intake: never Assessment & Plan Assessment & Plan narrative: # acute hypoxic respiratory failure 2/2 CHF exacerbation -presents with worsening dyspnea, fatigue, elevated BNP of 4000 up from 700 prior, hypoxic to 65% on room air. Peripheral edema on exam.? -hypoxia and edema have slowly been improving with diuresis. -IV lasix 40 BID, continue, changed today to oral furosemide 40 mg p.o. b.i.d. from home of 20 mg daily -echo similar to previous with normal EF -suspect she may have a chronic respiratory failure underlying given continued hypoxia with lab improvement thus far with diruesis. Plan for home O2. # severely elevated LFT's, improving -AST up to 1997 and ALT 1321, likely secondary to hepatic congestion from CHF. INR 1.5.?Have markedly improved with diresis. -tylenol level normal -avoid hepatotoxic agents -trend CMP's -LFTs improving with diuresis -holding statin # lactic acidemia, now resolved -initial LA of 3.9 and improved with diuresis to normal # elevated troponin -secondary to CHF exac and demand ischemia -trop downtrended, today is normal # hyperkalemia, resolved -initially 5.9 but improved to 5.1 without treatment, now normal -monitor # history of CVA -continue plavix, hold statin due to transaminitis # chronic microcytic anemia, acute, present on admission -Hgb 9.1 with MCV 65 all chronic -continue po iron # chronic leukocytosis -per notes follows with hematology and source of leukocytosis unclear as patient refused bone marrow biopsy -E coli UTI, possible source of leukocytosis # DM2 -continue home lantus but at 40 BID -A1c 9.2% earlier this month -high dose SSI # PVD -continue plavix, statin # HTN -continue losartan # chronic LE diabetic foot ulcers -continue wound care, does not appear to be actively infected. # insomnia, depression -continue celexa, remeron, and ambien Code status is DNR. DVT prophylaxis with lovenox. Proxy is Ann granddaughter. Dispo: Discharge to [facility], likely tomorrow with home O2. Quality VTE Deep Vein Thrombosis/Pulmonary Embolism Present on Admission: No
[2022-09-29] MEDS: OXYCODONE IR 5 MG TABLET PO (17:03)
[2022-09-29] MEDS: CALCIUM CARBONATE 500 MG TAB 1000 MG PO (17:03)
[2022-09-29] MEDS: ONDANSETRON 4 MG/2 ML INJ IV (20:08)
[2022-09-29] MEDS: ZOLPIDEM 5 MG TABLET 10 MG PO (21:30)
[2022-09-29] MEDS: MIRTAZAPINE 15 MG TABLET 7.5 MG PO (21:30)
[2022-09-30] MEDS: SODIUM CHLORIDE 0.9% FLUSH 10 ML IV ×2 (00:28→08:38)
[2022-09-30 04:00] VITALS: BP 109/55; PULSE 55; RESP 19; TEMP 36.2; O2SAT 100
[2022-09-30 07:03] VITALS: PULSE 81; RESP 18; O2SAT 93
[2022-09-30] MEDS: ALBUTEROL/IPRATROPIUM 3 ML AMPUL INH (07:03)
[2022-09-30] MEDS: POTASSIUM CHLORIDE 20 MEQ TAB 40 MEQ PO (07:52)
[2022-09-30] MEDS: PANTOPRAZOLE DR 40 MG TABLET PO (07:52)
--- NOTE | 2022-09-30 08:20 | PM.DS.1 ---
History of Present Illness History of Present Illness Date Patient Seen: 09/30/22 Time Patient Seen: 08:20 Chief complaint: Weakness, r/o UTI Narrative: ?Ariana Causey is a 62yo F with PMH of HTN, HLD, morbid obesity, type 2 diabetes with chronic foot wounds followed by wound care, peripheral vascular disease, prior CVA, probable COPD, and active smoker?who presents from [facility] with worsening fatigue, dyspnea and lethargy. Patient is a poor historian so history suppplemented from the ED notes. Apparently she has been gaining lots of water weight in her face and legs and hasn't been taking her lasix. She apparently is up 50lbs from prior admission. Patient says she is breathing much easier on the HFNC and sitting up, as her SOB increases when she lies flat. In the ED patient found to be hypoxic to 62% so was put on Bipap. This was weaned to HFNC as patient had trouble tolerating the mask. Vitals were stable. Labs showed LA of 3.9, AST 1693 and ALT 1139. Tylenol level normal. INR 1.5. Potassium 5.9 then improved to 5.1. ABG showed pH 7.34, pCO2 56 and pO2 92, bicarb 30. Discharge Providers Provider Date of admission: 09/23/22 14:18 Discharge Date: 09/30/22 Primary care physician: JED Bailon Consults: 09/23/22 14:37 Consult to Occupational Therapy Evaluate & Treat Comment: Physician Instructions: Evaluate and treat Consult to Physical Therapy Evaluate & Treat Comment: Physician Instructions: Evaluate and Treat 09/24/22 13:49 Consult to Home Health Routine Comment: RN, wound care, systemic assessment Reason For Exam: Home Health RN 09/27/22 12:30 Consult to Physical Therapy Evaluate & Treat Comment: Physician Instructions: Evaluate and Treat Discharge provider: Rafael Mccoy DO Summary Hospital Course Discharge Diagnosis: # acute hypoxic respiratory failure 2/2 acute on chronic diastolic heart failure # severely elevated LFT's, improving, secondary to CHF # lactic acidemia, now resolved # elevated troponin / myocardial injury # hyperkalemia, resolved # history of CVA # chronic microcytic anemia, acute, present on admission # chronic leukocytosis # DM2 # PVD # HTN # chronic LE diabetic foot ulcers # insomnia, depression #obesity Hospital Course: This is a 62 year old female with obesity. CHFpEF, HTN, DM2, PVD, chronic foot ulcers, prior CVA, chronic leukocytosis, chronic anemia who was admitted with hypoxic respiratory failure secondary to diastolic heart failure exacerbation. She improved symptomatically with oxygen supplementation and diuretic therapy. She had markedly elevated AST and ALT levels, likely due to hepatic congestion as they markedly improved with diuresis as well. Infection was felt to be less likely given presentation and chronic leukocytosis. She remains on 40 mg of furosemide twice daily at the time of discharge, as she was still requiring some supplemental oxygen and is probably still a bit volume overloaded. I recommend this dosing be revisited in 1-2 weeks with patient's PCP or needle maker. She may be able to be weaned off of supplemental oxygen in the next couple of days, though with her obesity and chronic medical conditions there is likely a component of chronic hypoxia and she was discharged home with supplemental oxygen. While on oxygen, goal O2 at assisted living should be 89-96%. Time Spent with Patient Time spent: Greater than 30 minutes Exam Vital Signs (past 8 hours): - 09/30/22 04:00 09/30/22 07:03 09/30/22 07:00 Temperature 97.1 F L Pulse Rate 55 L 81 Respiratory Rate 19 18 Blood Pressure 109/55 L Pulse Oximetry 100 93 Oxygen Delivery Method Nasal Cannula Nasal Cannula Oxygen Flow Rate 1.5 1.5 Fraction of Inspired Oxygen 26 Fraction of Inspired Oxygen 26 SaO2/FiO2 Ratio 357 Oxygen Delivery Method Nasal Cannula Oxygen Flow Rate 1.5 Narrative Exam Narrative: Gen: alert, cooperative, NAD, appears to be in no acute medical distress. Lungs: right lower crackles minimal.? Otherwise adequate air entry throughout the lung welsh. Ext: trace edema LEs, chronic unstageable pressure sores on ankles, feet Neuro: nl speech and affect PSYCH: no signs of acute depression or mood change Objective Labs 09/29/22 04:20 09/29/22 04:20 [facility] Medical History CHF (congestive heart failure) Diabetes Hyperlipidemia Hypertension Peripheral neuropathy PVD (peripheral vascular disease) TIA (transient ischemic attack) Surgical History H/O angioplasty History of cholecystectomy Social History household members: caregiver Smoking Status: Current every day smoker alcohol intake: never Discharge Plan Discharge Plan Patient Disposition: Assisted Living Transfer to: [facility] Living Provider Discharge Comment: 62 F admitted with respiratory failure due to CHF exacerbation. Her home diuretics were increased, recommend continued adjustment in diuretic dosing over the next 1-2 weeks with cardiology or primary provider. She was discharged home on supplemental oxygen as well, though with continued diuresis she may be able to come off if O2 saturations remain >89% on room air. Discharge orders & Medications Discharge Orders: Discharge (Order); Ordered 09/30/22 Ordered By: Rafael Mccoy Prescriptions: New furosemide 40 mg Tablet 40 mg PO 0800,1700 14 Days Qty: 28 0RF potassium chloride [Klor-Con M20] 20 mEq Tablet,Er Particles/Crystals 40 meq PO DAILYCC 30 Days Qty: 30 0RF Continued acetaminophen [Tylenol Extra Strength] 500 MG tablet 1 - 2 tab PO PRN PRN (Reason: pain/ fever) Qty: 0 cyclobenzaprine 10 MG tablet 10 mg PO BID Qty: 0 atorvastatin 80 mg tablet 80 mg PO DAILY Patient Comments: TAKE 1 TABLET (80mg) BY MOUTH EVERY DAY clopidogrel 75 mg tablet 75 mg PO DAILY zolpidem 10 mg tablet 10 mg PO QPM Victoza 3-Nicho 0.6 mg/0.1 mL (18 mg/3 mL) pen injector 1.8 mg SUBCUT QWEEK Patient Comments: INJECT 1.8mg into the SKIN DAILY INSTRUCTED citalopram 40 mg tablet 40 mg PO DAILY Qty: 30 0RF albuterol 90 mcg/actuation Aerosol 2 mcg INHALATION Q4H PRN (Reason: shortness of breath) Levemir FlexPen 100 unit/mL (3 mL) Insulin Pen 60 unit SUBCUT BEDTIME loperamide 2 mg Capsule 2 mg PO Q6H PRN (Reason: Diarrhea) polyethylene glycol 3350 [Miralax] 17 gram Powder In Packet 17 g PO DAILY PRN (Reason: Constipation) calcium carbonate [Calcium Antacid] 300 mg (750 mg) Tablet,Chewable 300 mg PO BID PRN (Reason: Dyspepsia) acetaminophen-codeine 300-30 mg tablet 1 tab PO Q6H PRN (Reason: Pain (Scale Score 4-6)) famotidine 20 mg Tablet 20 mg PO DAILY mupirocin 2 % Ointment 1 applic TOPICAL DAILY Patient Comments: unsure of exact frequency Rx Instructions: to bilateral foot wounds nystatin 100,000 unit/gram Powder 1 applic TOPICAL BID ondansetron 4 mg Tablet,Disintegrating 4 mg PO Q6H PRN (Reason: Nausea) fluticasone propionate [Allergy Relief (fluticasone)] 50 mcg/actuation [place],Suspension 1 spray INTRANASAL DAILY Rx Instructions: administer into each nostril mirtazapine 7.5 mg Tablet 7.5 mg PO BEDTIME Discontinued furosemide 20 MG tablet 20 mg PO QDAY Qty: 0 Patient Comments: Pt states she is not taking. last filled 06/12/20 Follow up/Referrals: La Quick ARNP [Primary Care Provider] - Discharge Health Status Multidrug resistant organism: No MDRO Precautions: [place] Diet/Activity/Treatments Diet: Diet as Tolerated, Carb-consistent/Diabetic and Low-sodium Liquid consistency: Normal/Thin Food texture: Regular Activity: No restrictions Oxygen: Goal O2 89-96% while on supplemental therapy. Visit Report/Discharge Packet Stand Alone Forms: Patient Portal/API, Stroke Signs & Symptoms Discharge Data Primary Care Provider: La Quick Quality VTE Deep Vein Thrombosis/Pulmonary Embolism Present on Admission: No
[2022-09-30] MEDS: FAMOTIDINE 20 MG TABLET PO (08:21)
[2022-09-30] MEDS: ENOXAPARIN 40 MG/0.4 ML SYRINGE SUBCUT (08:21)
[2022-09-30] MEDS: LOSARTAN 25 MG TABLET PO (08:22)
[2022-09-30] MEDS: FUROSEMIDE 40 MG TABLET PO (08:22)
[2022-09-30] MEDS: CYCLOBENZAPRINE 10 MG TABLET PO (08:22)
[2022-09-30] MEDS: CITALOPRAM 10 MG TABLET 40 MG PO (08:22)
[2022-09-30] MEDS: CLOPIDOGREL 75 MG TABLET PO (08:22)
[2022-09-30] MEDS: SENNOSIDES 8.6 MG TABLET 17.2 MG PO (08:22)
[2022-09-30] MEDS: polyethylene glycoL 3350 17 GM POWD.PACK PO (08:22)
[2022-09-30] MEDS: INSULIN GLARGINE 100 UNIT/ML 3ML PEN 40 UNIT SUBCUT (08:23)
[2022-09-30 08:37] VITALS: BP 115/61; PULSE 84; RESP 19; TEMP 36.4; O2SAT 93
--- NOTE | 2022-09-30 09:34 | CM.DPC ---
DCP Cont: Patient has discharge orders, asked JUAN Beckford medical assistant cardiology, to fax over orders to [facility]. Updated white board at main nurses station, gave nurse, Beulah, the number for report. P: Patient is discharging to [facility] today with draft roller picker at 11:00. Laura Espinoza RN/Copy Manager
== END 2022-09-30 11:11 | DRG 291 ==
LOC: ED 11:05 → AC 14:19 → ICU 15:00
PROVIDERS: Internal Medicine; Neuromusculoskeletal Medicine, Sports Medicine; Admitting Provider Student in an Organized Health Care Education/Training Program; Emergency Provider Emergency Medicine; PCP Nurse Practitioner Family; Referring Provider Emergency Medicine; Visit Provider Student in an Organized Health Care Education/Training Program
DX: I11.0 Hypertensive heart disease with heart failure (principal); I50.33 Acute on chronic diastolic (congestive) heart failure; J96.01 Acute respiratory failure with hypoxia; I24.8 Other forms of acute ischemic heart disease; L97.429 Non-pressure chronic ulcer of left heel and midfoot with unspecified severity; L97.419 Non-pressure chronic ulcer of right heel and midfoot with unspecified severity; E87.20 Acidosis, unspecified; E87.5 Hyperkalemia; D50.9 Iron deficiency anemia, unspecified; I73.9 Peripheral vascular disease, unspecified; E11.621 Type 2 diabetes mellitus with foot ulcer; G47.00 Insomnia, unspecified; R82.71 Bacteriuria; F32.A Depression, unspecified; R79.89 Other specified abnormal findings of blood chemistry; I5A Non-ischemic myocardial injury (non-traumatic); F17.200 Nicotine dependence, unspecified, uncomplicated; E78.5 Hyperlipidemia, unspecified; Z66 Do not resuscitate; Z86.73 Personal history of transient ischemic attack (TIA), and cerebral infarction without residual deficits; Z79.4 Long term (current) use of insulin
CPT/HCPCS: 36415; 36600; 71045; 71275; 74177; 80048; 80053; 80074; 80076; 80329; 81001; 82550; 82805; 82962; 83605; 83690; 83735; 83880; 84145; 84443; 84484; 85025; 85379; 85610; 86140; 87040; 87077; 87086; 87186; 87633; 87797; 93005; 94618; 94640; 94762; 96365; 96367; 96375; 99285; A9270; C8929; G0480; J0696; J1200; J1650; J1815; J1940; J2405; J2543; J2930; Q9957; Q9967

== ENCOUNTER → 2022-10-02 13:02 | Outpatient (CLI) | payer OTHER, MEDICAID, SELFPAY ==
[2022-09-23 10:01] VITALS: PULSE 96; RESP 29; O2SAT 95
[2022-09-23 17:16] VITALS: BMI 41.6
== END ==
PROVIDERS: PCP Nurse Practitioner Family; Referring Provider Internal Medicine; Visit Provider Physician Assistant
DX: E11.621 Type 2 diabetes mellitus with foot ulcer (principal); L97.512 Non-pressure chronic ulcer of other part of right foot with fat layer exposed; L97.412 Non-pressure chronic ulcer of right heel and midfoot with fat layer exposed; L97.422 Non-pressure chronic ulcer of left heel and midfoot with fat layer exposed
CPT/HCPCS: 97602

== ENCOUNTER → 2022-10-12 13:40 | Outpatient (CLI) | payer OTHER, MEDICAID, SELFPAY ==
[2022-09-23 10:01] VITALS: PULSE 96; RESP 29; O2SAT 95
[2022-09-23 17:16] VITALS: BMI 41.6
[2022-10-12 14:42] LABS: Basophils Absolute Auto 200 /uL (0-100); Eosinophils Absolute Auto 400 /uL (0-450); Eosinophils Percent Auto 2.1 % (2-4); Hematocrit 33.3 % (36-46); Hemoglobin 9.6 g/dL (12.0-16.0); Lymphocytes Absolute Auto 2200 /uL (1100-4500); Lymphocytes Percent Auto 11.1 % (25-40); Mean Corpuscular Hemoglobin 19.5 PG (26-34); Mean Corpuscular Volume 67.3 fL (80-100); Monocytes Absolute Auto 1000 /uL (0-900); Monocytes Percent Auto 5.4 % (3-14); Neutrophils Absolute Auto 15500 /uL (1500-7000); Neutrophils Percent Auto 80.4 % (50-75); Platelet Count 511 X10^3/uL (150-400); Red Blood Cell Count 4.95 X10^6/uL (4.0-5.2); White Blood Cell Count 19.3 X10^3/uL (4.5-11.0)
[2022-10-12 14:54] LABS: Add Manual Diff / Slide Review SLIDE REVIEW
[2022-10-12 14:56] LABS: Platelet Estimate Increased on smear
[2022-10-12 14:57] LABS: Anisocytosis 2+; Hypochromasia 1+; Microcytosis 2+; Poikilocytosis 1+
[2022-10-12 15:23] LABS: Alanine Aminotransferase 27 IU/L (<35); Albumin 3.4 g/dL (3.5-5.0); Alkaline Phosphatase 181 U/L (38-126); Aspartate Aminotransferase 32 IU/L (14-36); BUN Creatinine Ratio 22.8 (6-22); Bilirubin Total 0.3 mg/dL (0.2-1.3); Blood Urea Nitrogen 13 mg/dL (7-17); Calcium 8.6 mg/dL (8.4-10.2); Carbon Dioxide 31 mmol/L (22-32); Chloride 88 mmol/L (98-107); Estimated Glomerular Filt Rate > 60 mL/min (>60); Globulin 3.4 g/dL (1.7-4.1); Glucose 473 mg/dL (80-110); HEMOLYSIS < 15 (0-50); Sodium 129 mmol/L (137-145); Total Protein 6.8 g/dL (6.3-8.2)
== END ==
PROVIDERS: PCP Nurse Practitioner Family; Referring Provider Nurse Practitioner Family; Visit Provider Nurse Practitioner Family
DX: R94.5 Abnormal results of liver function studies (principal); E11.40 Type 2 diabetes mellitus with diabetic neuropathy, unspecified; E78.5 Hyperlipidemia, unspecified; D89.1 Cryoglobulinemia; E66.9 Obesity, unspecified; M79.7 Fibromyalgia; Z86.31 Personal history of diabetic foot ulcer
CPT/HCPCS: 36415; 80053; 85025

== ENCOUNTER → 2022-10-19 14:28 | Outpatient (CLI) | payer OTHER, MEDICAID, SELFPAY ==
[2022-09-23 10:01] VITALS: PULSE 96; RESP 29; O2SAT 95
[2022-09-23 17:16] VITALS: BMI 41.6
== END ==
PROVIDERS: PCP Nurse Practitioner Family; Referring Provider Nurse Practitioner Family; Visit Provider Surgery
DX: E11.621 Type 2 diabetes mellitus with foot ulcer (principal); L97.512 Non-pressure chronic ulcer of other part of right foot with fat layer exposed; L97.415 Non-pressure chronic ulcer of right heel and midfoot with muscle involvement without evidence of necrosis; L89.620 Pressure ulcer of left heel, unstageable; A49.02 Methicillin resistant Staphylococcus aureus infection, unspecified site; F17.210 Nicotine dependence, cigarettes, uncomplicated
CPT/HCPCS: 11042; 11045

== ENCOUNTER → 2022-10-23 14:09 | Outpatient (CLI) | payer OTHER, MEDICAID, SELFPAY ==
[2022-09-23 10:01] VITALS: PULSE 96; RESP 29; O2SAT 95
[2022-09-23 17:16] VITALS: BMI 41.6
== END ==
PROVIDERS: PCP Nurse Practitioner Family; Referring Provider Nurse Practitioner Family; Visit Provider Physician Assistant
DX: E11.621 Type 2 diabetes mellitus with foot ulcer (principal); L97.512 Non-pressure chronic ulcer of other part of right foot with fat layer exposed; L97.412 Non-pressure chronic ulcer of right heel and midfoot with fat layer exposed; L89.620 Pressure ulcer of left heel, unstageable; R60.0 Localized edema
CPT/HCPCS: 99213

== ENCOUNTER → 2022-10-26 09:34 | Outpatient (CLI) | payer OTHER, MEDICAID, SELFPAY ==
[2022-09-23 10:01] VITALS: PULSE 96; RESP 29; O2SAT 95
[2022-09-23 17:16] VITALS: BMI 41.6
== END ==
PROVIDERS: PCP Nurse Practitioner Family; Referring Provider Nurse Practitioner Family; Visit Provider Surgery
DX: E11.621 Type 2 diabetes mellitus with foot ulcer (principal); L97.512 Non-pressure chronic ulcer of other part of right foot with fat layer exposed; L97.412 Non-pressure chronic ulcer of right heel and midfoot with fat layer exposed; R60.0 Localized edema; L89.620 Pressure ulcer of left heel, unstageable
CPT/HCPCS: 99213

== ENCOUNTER → 2022-11-18 09:43 | Outpatient (CLI) | payer OTHER, MEDICAID, SELFPAY ==
[2022-09-23 10:01] VITALS: PULSE 96; RESP 29; O2SAT 95
[2022-09-23 17:16] VITALS: BMI 41.6
== END ==
PROVIDERS: PCP Nurse Practitioner Family; Visit Provider Surgery
DX: E11.621 Type 2 diabetes mellitus with foot ulcer (principal); L97.512 Non-pressure chronic ulcer of other part of right foot with fat layer exposed; L89.620 Pressure ulcer of left heel, unstageable; L97.412 Non-pressure chronic ulcer of right heel and midfoot with fat layer exposed; F17.210 Nicotine dependence, cigarettes, uncomplicated; R60.0 Localized edema
CPT/HCPCS: 11042; 99212; 99213

== ENCOUNTER → 2022-12-09 09:05 | Outpatient (CLI) | payer MEDICARE, MEDICAID, SELFPAY ==
[2022-09-23 10:01] VITALS: PULSE 96; RESP 29; O2SAT 95
[2022-09-23 17:16] VITALS: BMI 41.6
--- NOTE | 2022-12-09 | OV.WND_ITS ---
Progress Note Details Patient Name: Ariana Causey Patient Number: [id number] Clinician: Krystle Richardson RN Patient Date of : 1960 Clinician Cosigner: Jacqueline Patel RN Patient Physician / Mail Order Biller: Leander Bhatti SUBJECTIVE Chief Complaint This information was obtained from the Patient. States feels fine today. Allergies Sulfa (Sulfonamide Antibiotics), Vicodin HPI This information was obtained from the Patient. The following HPI elements were documented for the patient's wound: Location: bilat feet Duration: June 2018 Context: DFU Associated Signs and Symptoms: none The patient is a 62-year-old female with type 2 diabetes, neuropathy, and multiple other comorbidities who returns today for followup of diabetic ulcers on her both heels and ulcer dorsum right second toe. She has contractures which cause continuous pressure on the posterior aspect of both heels. Patient has been receiving palliative wound care with Hydrofera blue dressing changes 3 times a week. The patient has not been seen at the wound center since November 18, 2022. She has not had any unusual pain or discomfort nor has she had any redness, drainage, or fever. The patient is wheelchair bound secondary to previous CVA and resides at an assisted living facility. She has a history of noncompliance. Previous cultures have grown MRSA. 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 She is still smoking a few cigarettes a day. Hemoglobin A1c from March 09, 2022 was 10.6. Arterial Doppler from June 03, 2022 showed hemodynamically significant bilateral outflow stenoses. The patient has decided that she does not want to have follow up with the vascular surgeon or have any further vascular workup. On today's visit the ulcer on the dorsum of the right foot measures the same, ulcer right heel measures larger and has some ecchymosis, left heel measures slightly larger. No sign of infection. The patient claims to be routinely using the EHOB boots. Previous workup: 06/03/22: Arterial Doppler from June 03, 2022 showed hemodynamically significant bilateral outflow stenoses. 03/09/22: Hemoglobin A1c 10.6 08/20/21: Hemoglobin A1c 8.2 04/26/21: Cultures right foot grew MRSA 09/04/20: Sensilase revealed adequate perfusion for healing Medical History This information was obtained from the Chart, Patient. Patient has a medical history of: Diabetes, type 2 Ariana Causey [id number] 1960 Diabetic Neuropathy Urinary Incontinence Fibromylagia CVA Osteoarthritis Gastro Esoph. Reflux Disease (GERD) Sleep Apnea Hyperlipidemia Depression Peripheral Vascular Disease Additional Information Does patient have a history of Cancer? Yes? Complete all questions.: No Surgical History This information was obtained from the Chart, Patient. Patient has a surgical history of: Tubal Ligation- Cholecystectomy- Kidney stone removal- R angioplasty- OBJECTIVE Vitals Height/Length: 64 in (162.56 cm), Weight: 267.5 lbs (121.59 kgs), BMI: 45.9, Temperature: 97.7 ?F (36.5 ?C), Pulse: 97 bpm, Respiratory Rate: 18 breaths/min, Blood Pressure: 137/78 mmHg, Pulse Oximetry: 92 %. General Notes Glucose per 138 Physical Exam Constitutional: Vital signs reviewed and noted. Obese, well nourished, and in no acute distress. Alert and oriented x3. Respiratory: Even respirations without use of accessory muscles. No intercoastal retractions noted. Even and non labored respiration. Integumentary (Hair, Skin): toes left foot slightly dusky, dry scaly skin. chronic bilateral lower extremity edema. See wound assessment. Neurological: decreased lower extremity sensation. Psychiatric: Orientation to time, place and person: Normal affect with normal thought pattern. Additional Information The patient's potential to heal is: poor. Wound Assessment(s) Wound #15 Right, Distal, Dorsal Foot is a chronic Aguilar Grade 3 Diabetic Ulcer and has received a status of Not Healed. Initial wound encounter measurements are 1.9cm length x 0.5cm width x 0.2 cm Ariana Causey [id number] 1960 depth, with an area of 0.95 sq cm and a volume of 0.19 cubic cm. Adipose is exposed. No tunneling has been noted. No sinus tract has been noted. No undermining has been noted. There is a Small amount of serosanguineous drainage noted which has no odor. The patient reports a wound pain of level 0/10. The wound margin is irregular Wound bed has No, granulation, Yes slough, No eschar, No epithelialization. The periwound skin exhibited edema. The periwound skin did not exhibit maceration and erythema. The periwound skin was not dry/scaly and moist. The temperature of the periwound skin is WNL. Local Pulse is Doppler. Additional Information Limited to breakdown of skin: No Wound #30 Right, Medial Heel is a chronic Aguilar Grade 4 Diabetic Ulcer and has received a status of Not Healed. Initial wound encounter measurements are 2.8cm length x 4cm width x 0.3 cm depth, with an area of 11.2 sq cm and a volume of 3.36 cubic cm. Adipose is exposed. No tunneling has been noted. No sinus tract has been noted. No undermining has been noted. There is a Moderate amount of serosanguineous drainage noted which has no odor. The patient reports a wound pain of level 0/10. The wound margin is attached Wound bed has Yes, bright red, pink, firm, granulation, Yes slough, No eschar, No epithelialization. The periwound skin exhibited edema. The periwound skin did not exhibit erythema. The periwound skin was not moist. The temperature of the periwound skin is WNL. Local Pulse is Doppler. General Notes Appears to have Bruising edmond-wound. Additional Information Limited to breakdown of skin: No Wound #36 Left, Medial Heel is a chronic Deep Tissue Pressure Injury Persistent non-blanchable deep red, maroon or purple discoloration Pressure Ulcer and has received a status of Not Healed. Initial wound encounter measurements are 1.4cm length x 1.1cm width x 0.2 cm depth, with an area of 1.54 sq cm and a volume of 0.308 cubic cm. Adipose is exposed. No tunneling has been noted. No sinus tract has been noted. No undermining has been noted. There is a Moderate amount of serosanguineous drainage noted which has no odor. The patient reports a wound pain of level 0/10. The wound margin is attached Wound bed has Yes, bright red, pink, firm, granulation, Yes slough, No eschar, No epithelialization. The periwound skin did not exhibit maceration. The periwound skin was dry/scaly. The periwound skin was not moist. The temperature of the periwound skin is WNL. Local Pulse is Doppler. Additional Information Limited to breakdown of skin: No Wound #37 Right, Lateral Heel is a chronic Aguilar Grade 1 Diabetic Ulcer and has received a status of Not Healed. Initial wound encounter measurements are 1.6cm length x 3.8cm width x 0.3 cm depth, with an area of 6.08 sq cm and a volume of 1.824 cubic cm. Adipose is exposed. No tunneling has been noted. No sinus tract has been noted. No undermining has been noted. There is a Moderate amount of serosanguineous drainage noted which has no odor. The patient reports a wound pain of level 0/10. The wound margin is rolled Wound bed has No, granulation, Yes slough, No eschar, No epithelialization. The periwound skin did not exhibit erythema. The periwound skin was dry/scaly. The periwound skin was not moist. The temperature of the periwound skin is WNL. Local Pulse is Doppler. General Notes including satelite 2.5 x0.6 without including satelite Additional Information Limited to breakdown of skin: No Ariana Causey [id number] 1960 ASSESSMENT Active Problems ICD-10 (Encounter Diagnosis) E11.621 - Type 2 diabetes mellitus with foot ulcer (Encounter Diagnosis) I89.0 - Lymphedema, not elsewhere classified (Encounter Diagnosis) I87.2 - Venous insufficiency (chronic) (peripheral) (Encounter Diagnosis) L97.412 - Non-pressure chronic ulcer of right heel and midfoot with fat layer exposed (Encounter Diagnosis) L97.512 - Non-pressure chronic ulcer of other part of right foot with fat layer exposed (Encounter Diagnosis) I70.293 - Other atherosclerosis of [place] arteries of extremities, bilateral legs (Encounter Diagnosis) L97.422 - Non-pressure chronic ulcer of left heel and midfoot with fat layer exposed General Notes Ulcers dorsum right foot and both heels secondary to microvascular occlusion disorder complicated by diabetes, pressure, noncompliance, and infection. Her myeloproliferative disorder may also contribute to development of these ulcers. Status: Measurements slightly larger, bruising right heel, no sign of infection The following factors have been identified that may impair wound healing: Devitalized tissue Bioburden. Chronic inflammation (? etiology) Possible cryofibrinogenemia (negative on re-check) Possible venous insufficiency. Arterial insufficiency with previous successful revascularization Diabetes Smoking Pressure. Long duration of wounds (>6 months) Goals: Remove devitalized tissue in the wound that can inhibit wound healing. Minimize bioburden. Optimize offloading. Manage comorbidities Palliative: Manage wound symptoms (exudate, pain, odor). Minimize risk of infection/wound breakdown. Optimize function and quality of life. Prevent prolonged hospitalization. Plan: Debridement, continue dressing changes with Hydrofera blue, encouraged use of EHOB boot. Since the ulcers are measuring larger will increase clinic visits to once a week. PROCEDURES Wound #15 Wound #15 (Diabetic Ulcer) is located on the right, distal, dorsal foot. A skin/subcutaneous tissue level surgical debridement with a total area debrided of 1.14 sq cm. was performed by Leander Bhatti MD. Subcutaneous was removed along with devitalized tissue: biofilm, exudate and slough. The following instrument(s) were used: curette. Pain control was achieved using EMLA lidocaine/prilocaine 2.5%/2.5%. A time out was conducted prior to the start of the procedure. A minimal amount of bleeding was controlled with pressure. The procedure was tolerated well with a pain level of 0 Ariana Causey [id number] 1960 throughout and a pain level of 0 following the procedure. Post Debridement Measurements: 1.9cm length x 0.6cm width x 0.3cm depth; with an area of 1.14 sq cm and a volume of 0.342 cubic cm. Additional Information Muscle fascia or bone removed and sent to pathology?: No Wound #30 Wound #30 (Diabetic Ulcer) is located on the right, medial heel. A skin/subcutaneous tissue level surgical debridement with a total area debrided of 11.6 sq cm. was performed by Leander Bhatti MD. to remove devitalized tissue: biofilm, exudate and slough. The following instrument(s) were used: curette. Pain control was achieved using EMLA lidocaine/prilocaine 2.5%/2.5%. A time out was conducted prior to the start of the procedure. A minimal amount of bleeding was controlled with pressure. The procedure was tolerated well with a pain level of 0 throughout and a pain level of 0 following the procedure. Post Debridement Measurements: 2.9cm length x 4cm width x 0.4cm depth; with an area of 11.6 sq cm and a volume of 4.64 cubic cm. Additional Information Muscle fascia or bone removed and sent to pathology?: No Wound #36 Wound #36 (Pressure Ulcer) is located on the left, medial heel. A skin/subcutaneous tissue level surgical debridement with a total area debrided of 1.8 sq cm. was performed by Leander Bhatti MD. Subcutaneous was removed along with devitalized tissue: biofilm and slough. The following instrument(s) were used: curette. Pain control was achieved using EMLA lidocaine/prilocaine 2.5%/2.5%. A time out was conducted prior to the start of the procedure. A moderate amount of bleeding was controlled with pressure. The procedure was tolerated well with a pain level of 0 throughout and a pain level of 2 following the procedure. Post Debridement Measurements: 1.5cm length x 1.2cm width x 0.3cm depth; with an area of 1.8 sq cm and a volume of 0.54 cubic cm. Additional Information Muscle fascia or bone removed and sent to pathology?: No Wound #37 Wound #37 (Diabetic Ulcer) is located on the right, lateral heel. A debridement was performed by Leander Bhatti MD. General Notes NO DEBRIDEMENT PLAN Wound Orders: Wound #15 Right, Distal, Dorsal Foot Cleanser Cleanse Wound with normal saline Other order - Dakins moistened gauze soaks for 10 minutes Dressings Primary dressing - Hydrodera blue ready transfer. Cover and secure with - Kerlix. Change Dressing - [facility] please change dressing ONCE weekly until patient returns to clinic. Other order - Lambs wool between toes. Ariana Causey [id number] 1960 Physician Review: Reviewed and evaluated labs. Discussed the Plan of Care @ bedside with - the patient Reviewed hospital records. I, as the physician, have reviewed the orders scribed by the center RN's and agree. Wound #30 Right, Medial Heel Cleanser Cleanse Wound with normal saline Other order - Dakins moistened gauze soaks for 10 minutes Dressings Primary dressing - Hydrodera blue ready transfer. Cover and secure with - ABD pad secured with kerlix. Change Dressing - [facility] please change dressing twice weekly until patient returns to clinic. Other order - Lambs wool between toes. Physician Review: Reviewed and evaluated labs. Discussed the Plan of Care @ bedside with - the patient Reviewed hospital records. I, as the physician, have reviewed the orders scribed by the center RN's and agree. Wound #36 Left, Medial Heel Cleanser Cleanse Wound with normal saline Other order - Dakins moistened gauze soaks for 10 minutes Dressings Primary dressing - Hydrodera blue ready transfer. Cover and secure with - ABD pad secured with kerlix. Change Dressing - [facility] please change dressing twice weekly until patient returns to clinic. Other order - Lambs wool between toes. Physician Review: Reviewed and evaluated labs. Discussed the Plan of Care @ bedside with - the patient Reviewed hospital records. I, as the physician, have reviewed the orders scribed by the center RN's and agree. Wound #37 Right, Lateral Heel Cleanser Cleanse Wound with normal saline Other order - Dakins moistened gauze soaks for 10 minutes Dressings Primary dressing - Hydrodera blue ready transfer. Cover and secure with - ABD pad secured with kerlix. Change Dressing - [facility] please change dressing twice weekly until patient returns to clinic. Other order - Lambs wool between toes. Physician Review: Reviewed and evaluated labs. Discussed the Plan of Care @ bedside with - the patient Reviewed hospital records. I, as the physician, have reviewed the orders scribed by the center RN's and agree. Additional Orders: Anesthetic Topical Xylocaine to wound bed - In clinic, to all wounds. Hygiene May shower with wound protected, using a cast protector or plastic bag and tape - Protect all wounds from shower water. Other order - Wash your hands before and after wound care. Off-Loading Keep weight off - Both feet. Sit to stand Luiz when going to and from bed. Ariana Causey [id number] 1960 Use EHOB waffle boots to both feet, to float heels/relieve pressure. Other order - Please have patient wear purple foam booties while in her wheelchair. EHOB boots while in bed. Dietary Increased protein - Protein helps promote wound healing. Supplement with - Dwain is a recommended supplement. Other Instructions: - [facility]- please change dressings ONCE weekly until patient returns to clinic. Follow-Up Appointments Return Appointment - ONE WEEK Other information: If you develop fever, chills, increased pain, drainage, redness or swelling please call our office. If after hours, respond to the ER. Should you experience any significant changes in your wound(s) or have any questions regarding your home care instructions please contact the wound center @ [phone]. If after hours, contact your primary care physician or go to the hospital emergency room. Plan of Care: 01. ENSURE/ESTABLISH OPTIMAL BLOOD FLOW : - Complete lower extremity assessment - Perform non-invasive vascular testing (i.e. [place]) and document findings. Consider repeating when wound healing <40% after 30 days of wound care. 02. ASSESS FOR/TREAT INFECTION : - Evaluate for signs and symptoms of infection and document findings. 03. DEBRIDE WEEKLY OR MORE OFTEN PRN : - Evaluate patient in center weekly to assess wound bed and margins for need for debridement. - Debridement by any method to remove devitalized/necrotic tissue to promote healing and prevent further complications. Goal is to stimulate and/or maintain acute phase of wound healing by reducing bacterial burden and devitalized/non-viable tissue. 04. OPTIMIZE GLUCOSE CONTROL and NUTRITION : - Order/review pertinent labs to evaluate renal function, glucose control, and nutritional status. - Complete a nutrition risk assessment. 05. OFFLOADING PLAN : - Evaluate plan for offloading - Assess tolerance and compliance of offloading. 06. OPTIMIZE HOST FACTORS: - Assess and review patient history for wound etiology, co-morbid conditions, medication regime, and smoking history. - Assess lifestyle factors such as smoking, alcohol/drug abuse, eating habits/malnutrition and activity level. - Educate and encourage smoking cessation. 07. DRESSING SELECTION : - Evaluate for dressing-related factors, such as availability, wear time, adaptability and use to better optimize wound healing and patient compliance. - Choose topical treatments and/or dressing based on wound type and appearance, periwound skin condition, wound size and depth, anatomic location, volume of exudate, edema in the lower extremities, and risk or presence of infection. 08. ADVANCED MODALITIES : - Set treatment goals according to patient and/or caregiver???s ability/ compliance. 09. FALL PREVENTION : - Reviewed, not applicable 10. PAIN MANAGEMENT : - Complete pain assessment - Prepare patient to set reasonable expectations prior to procedure. Ariana Causey [id number] 1960 - Distract the patient with music or conversation during procedure. 11. MEASURABLE GOALS for Wound Healing and/or Hyperbaric Oxygen Therapy : - Decrease pain - Improve quality of life - Reduce risk for infection 12. DURATION/FREQUENCY of Wound Care Visits : - 1x month for next few months (as needed for Palliative) Electronic Signature(s) Signed By: Date: Leander Bhatti MD 12/09/2022 13:19:56 (PT) Entered By: Leander Bhatti MD on 12/09/2022 13:19:05 (PT) Ariana Causey [id number] 1960
== END ==
PROVIDERS: PCP Nurse Practitioner Family; Visit Provider Surgery
DX: E11.621 Type 2 diabetes mellitus with foot ulcer (principal); I89.0 Lymphedema, not elsewhere classified; I87.2 Venous insufficiency (chronic) (peripheral); L97.512 Non-pressure chronic ulcer of other part of right foot with fat layer exposed; L97.412 Non-pressure chronic ulcer of right heel and midfoot with fat layer exposed; L89.620 Pressure ulcer of left heel, unstageable; Z99.3 Dependence on wheelchair
CPT/HCPCS: 11042

== ENCOUNTER → 2022-12-21 10:47 | Outpatient (CLI) | payer MEDICARE, MEDICAID, SELFPAY ==
[2022-09-23 10:01] VITALS: PULSE 96; RESP 29; O2SAT 95
[2022-09-23 17:16] VITALS: BMI 41.6
== END ==
PROVIDERS: PCP Nurse Practitioner Family; Visit Provider Surgery
DX: E11.621 Type 2 diabetes mellitus with foot ulcer (principal); L97.412 Non-pressure chronic ulcer of right heel and midfoot with fat layer exposed; L97.512 Non-pressure chronic ulcer of other part of right foot with fat layer exposed; L89.626 Pressure-induced deep tissue damage of left heel; I73.9 Peripheral vascular disease, unspecified; I87.2 Venous insufficiency (chronic) (peripheral); S81.802A Unspecified open wound, left lower leg, initial encounter; R60.0 Localized edema; I27.20 Pulmonary hypertension, unspecified; I50.9 Heart failure, unspecified; I48.91 Unspecified atrial fibrillation; F17.210 Nicotine dependence, cigarettes, uncomplicated
CPT/HCPCS: 11042

== ENCOUNTER → 2022-12-30 15:29 | Outpatient (CLI) | payer MEDICARE, MEDICAID, SELFPAY ==
[2022-09-23 10:01] VITALS: PULSE 96; RESP 29; O2SAT 95
[2022-09-23 17:16] VITALS: BMI 41.6
[2022-12-30 16:59] LABS: Add Manual Diff / Slide Review NO; Basophils Absolute Auto 100 /uL (0-100); Basophils Percent Auto 0.6 % (0-2); Eosinophils Absolute Auto 500 /uL (0-450); Eosinophils Percent Auto 2.4 % (2-4); Hematocrit 34.8 % (36-46); Hemoglobin 10.8 g/dL (12.0-16.0); Lymphocytes Absolute Auto 3100 /uL (1100-4500); Lymphocytes Percent Auto 13.8 % (25-40); Mean Corpuscular HGB Conc 31.1 % (30-36); Mean Corpuscular Hemoglobin 21.2 PG (26-34); Mean Corpuscular Volume 68.1 fL (80-100); Monocytes Absolute Auto 1700 /uL (0-900); Monocytes Percent Auto 7.6 % (3-14); Neutrophils Absolute Auto 16800 /uL (1500-7000); Neutrophils Percent Auto 75.6 % (50-75); Platelet Count 523 X10^3/uL (150-400); Red Blood Cell Count 5.11 X10^6/uL (4.0-5.2); Red Cell Distribution Width 19.8 % (11.6-14.8); White Blood Cell Count 22.2 X10^3/uL (4.5-11.0)
[2022-12-30 17:07] LABS: Hemoglobin A1C% w Est Avg Glu 8.6 % (4.0-6.0)
[2022-12-30 17:28] LABS: Alanine Aminotransferase 25 IU/L (<35); Albumin 3.7 g/dL (3.5-5.0); Alkaline Phosphatase 145 U/L (38-126); Aspartate Aminotransferase 31 IU/L (14-36); BUN Creatinine Ratio 28.8 (6-22); Bilirubin Total 0.3 mg/dL (0.2-1.3); Blood Urea Nitrogen 17 mg/dL (7-17); Calcium 9.7 mg/dL (8.4-10.2); Carbon Dioxide 29 mmol/L (22-32); Chloride 92 mmol/L (98-107); Cholesterol 216 mg/dL (140-199); Estimated Glomerular Filt Rate > 60 mL/min (>60); Globulin 3.8 g/dL (1.7-4.1); Glucose 237 mg/dL (80-110); HDL Cholesterol 32 mg/dL (40-60); HEMOLYSIS < 15 (0-50); LDL Cholesterol Calculated 132 mg/dL (<100); Potassium 5.2 mmol/L (3.4-5.1); Sodium 134 mmol/L (137-145); Total Protein 7.5 g/dL (6.3-8.2); Triglycerides 261 mg/dL (35-150)
[2022-12-30 17:50] LABS: Anisocytosis 2+; Microcytosis 2+
== END ==
PROVIDERS: PCP Family Medicine; Referring Provider Family Medicine; Visit Provider Family Medicine
DX: E11.9 Type 2 diabetes mellitus without complications (principal); E78.5 Hyperlipidemia, unspecified; G62.9 Polyneuropathy, unspecified; I10 Essential (primary) hypertension; I50.9 Heart failure, unspecified; I73.9 Peripheral vascular disease, unspecified; L97.509 Non-pressure chronic ulcer of other part of unspecified foot with unspecified severity; E11.621 Type 2 diabetes mellitus with foot ulcer
CPT/HCPCS: 36415; 80053; 80061; 83036; 85025

== ENCOUNTER 2023-01-04 07:04 | Inpatient (IN) | payer MEDICARE, MEDICAID, SELFPAY ==
[2022-09-23 10:01] VITALS: PULSE 96; RESP 29; O2SAT 95
[2022-09-23 17:16] VITALS: BMI 41.6
[2023-01-04] VITALS (87 sets, daily range): BP systolic 90–146; BP diastolic 48–80; PULSE 96–112; RESP 13–45; TEMP 31–39.3; O2SAT 81–100; BMI 42.1
--- NOTE | 2023-01-04 07:12 | ED_ITS ---
HPI - General Adult General Chief complaint: Shortness of Breath/Dyspnea Stated complaint: SOB Time Seen by Provider: 01/04/23 07:05 Source: patient and EMS Mode of arrival: EMS Limitations: other (Shortness of breath) History of Present Illness HPI narrative: Patient is a 63-year-old female. She is a DNR/DNI with limited interventions. Her PLOST form is at bedside. Very limited HPI given the patient's respiratory distress. She is a resident of a local care facility. Has a history of CHF. She does take Lasix. The medicine list from her facility states she is on 40 of Lasix. It appears the patient has had progressively worsening shortness of breath for the past couple days. She is unsure if she is had any fevers. She denies chest pain or abdominal pain. She does not ambulate. The rest of her HP I was unobtainable given her presenting condition. Related Data Home Medications Medication Instructions Recorded Confirmed acetaminophen 500 mg tablet 1 - 2 tab PO PRN PRN pain/ fever 12/28/16 09/23/22 (Tylenol Extra Strength) ##0 atorvastatin 80 mg tablet 80 mg PO DAILY 07/08/20 09/23/22 clopidogrel 75 mg tablet 75 mg PO DAILY 07/08/20 09/23/22 liraglutide 0.6 mg/0.1 mL (18 mg/3 1.8 mg SUBCUT QWEEK 07/08/20 09/23/22 mL) subcutaneous pen injector (Victoza 3-Nicho) zolpidem 10 mg tablet 10 mg PO QPM 07/08/20 09/23/22 acetaminophen 300 mg-codeine 30 mg 1 tab PO Q6H PRN Pain (Scale Score 09/23/22 09/23/22 tablet 4-6) albuterol 90 mcg/actuation aerosol 2 mcg inhalation Q4H PRN shortness 09/23/22 09/23/22 inhaler of breath calcium carbonate 300 mg (750 mg) 300 mg PO BID PRN Dyspepsia 09/23/22 09/23/22 chewable tablet (Calcium Antacid) famotidine 20 mg tablet 20 mg PO DAILY 09/23/22 09/23/22 fluticasone propionate 50 1 spray intranasal DAILY 09/23/22 09/23/22 mcg/actuation nasal spray,suspension (Allergy Relief (fluticasone)) insulin detemir U-100 100 unit/mL 60 unit SUBCUT BEDTIME 09/23/22 09/23/22 (3 mL) subcutaneous pen (Levemir FlexPen) mupirocin 2 % topical ointment 1 applic topical DAILY 09/23/22 09/23/22 nystatin 100,000 unit/gram topical 1 applic topical BID 09/23/22 09/23/22 powder ondansetron 4 mg disintegrating 4 mg PO Q6H PRN Nausea 09/23/22 09/23/22 tablet polyethylene glycol 3350 17 gram 17 g PO DAILY PRN Constipation 09/23/22 09/23/22 oral powder packet (Miralax) Previous Rx's Medication Instructions Recorded citalopram 40 mg tablet 40 mg PO DAILY #30 tabs 07/12/20 duloxetine 20 mg capsule,delayed 20 mg PO DAILY #30 caps 12/23/22 release Allergies Allergy/AdvReac Type Severity Reaction Status Date / Time Sulfa (Sulfonamide Allergy Intermediate RASH Verified 01/04/23 12:04 Antibiotics) hydrocodone Allergy Unknown ITCH Verified 01/04/23 12:04 Review of Systems Review of Systems Narrative: Limited given her respiratory status Constitutional Comments: Potentially has had fevers Cardiovascular Comments: Denies chest pain Respiratory Respiratory: Reports system reviewed and no additional complaints, except as documented Gastrointestinal Comments: She denies abdominal pain Hematologic/Lymphatic On Anticoagulants: No Patient History Medical History Abnormal LFTs Acute hyperkalemia CHF (congestive heart failure) Diabetes Leukocytosis (leucocytosis) Pneumonia PVD (peripheral vascular disease) Respiratory failure, acute Right hemiparesis Scalp laceration TIA (transient ischemic attack) Surgical History H/O angioplasty History of cholecystectomy Social History household members: caregiver Smoking Status: Current every day smoker alcohol intake: never Smoking Status: Current every day smoker alcohol intake frequency: 0-2 drinks per day Substance Use Type: does not use Exam Initial Vital Signs Initial Vital Signs: Vital Signs Pulse Rate 112 H 01/04/23 07:08 Pulse Oximetry 99 01/04/23 07:08 Const General: other (Appears chronically ill) HENMT Head: normal to inspection and normocephalic Resp Effort & Inspection: labored, respiratory distress, tachypneic and uses accessory muscles Auscultation: diminished lung sounds Cardio Rate: tachycardic Rhythm: regular rhythm GI Inspection: normal to inspection and non-distended Skin General: no rashes or lesions noted Neuro Other: Patient is alert and does follow commands Extrem General: edema Course Orders Ordered: ED Orders 01/04/23 07:00 Complete Blood Count AUTO DIFF Stat Comprehensive Metabolic Panel Stat Lactate (Lactic Acid) Stat Lipase Stat Magnesium Stat NT-proBNP (BNP-Adult 18+) Stat PTT Partial Thromboplastin Gilberto Stat Pathologist Review (for CBC) Stat Prothrombin Time INR Stat Respiratory Panel (Film Array) Stat Troponin & CK Cardiac Panel Stat 01/04/23 07:15 BiPAP Ventilatory Support RT PROTOCOL 01/04/23 07:16 XR chest 1V Stat EKG-12 Lead Stat RT Consult Eval and Treat Now 01/04/23 07:25 Blood Culture Stat 01/04/23 07:28 Arterial Blood Gas Stat 01/04/23 09:12 Procalcitonin Stat Troponin & CK Cardiac Panel Stat 01/04/23 10:03 Urinalysis and Microscopic Stat Urine Culture Stat 01/04/23 10:13 EC echo limited Stat 01/04/23 10:14 CT angio chest PE protocol Stat 01/04/23 11:15 Lactate (Lactic Acid) Stat 01/04/23 11:46 CT abdomen pelvis w con Stat 01/04/23 12:10 Troponin & CK Cardiac Panel Stat 01/04/23 13:00 Lactate (Lactic Acid) Stat 01/04/23 13:23 ABG [Arterial Blood Gas] Stat Sodium Chloride (Normal Saline 0.9%) 1,000 mls @ 100 mls/hr IV CONT SAMEER Last Infusion: 01/04/23 14:51 Dose: 100 mls/hr Documented By: Infusion: 01/04/23 11:16 Dose: 100 mls/hr Documented By: Infusion: 01/04/23 11:02 Dose: 0 mls/hr Documented By: Admin: 01/04/23 10:08 Dose: 100 mls/hr Documented By: MPO Discontinued Medications Furosemide 80 mg/ Sodium (Chloride) 58 mls @ 116 mls/hr IV NOW ONE Stop: 01/04/23 07:18 Last Infusion: 01/04/23 07:56 Dose: 0 mls/hr Documented By: Admin: 01/04/23 07:22 Dose: 116 mls/hr Documented By: ISELA Azithromycin 500 mg/ Dextrose 250 mls @ 250 mls/hr IV NOW ONE Stop: 01/04/23 07:47 Last Infusion: 01/04/23 09:08 Dose: 0 mls/hr Documented By: Admin: 01/04/23 07:50 Dose: 250 mls/hr Documented By: ISELA Ceftriaxone Sodium 1,000 mg/ (Sodium Chloride) 100 mls @ 200 mls/hr IV NOW ONE Stop: 01/04/23 08:13 Last Infusion: 01/04/23 10:21 Dose: 0 mls/hr Documented By: Admin: 01/04/23 09:40 Dose: 200 mls/hr Documented By: ISELA Magnesium Sulfate (Magnesium Sulfate) 2 gm in 50 mls @ 25 mls/hr IV NOW ONE Stop: 01/04/23 10:19 Last Infusion: 01/04/23 10:42 Dose: 0 mls/hr Documented By: ISELA Co-signed By: DANIEL Admin: 01/04/23 08:29 Dose: 25 mls/hr Documented By: ISELA Co-signed By: DANIEL Acetaminophen (Ofirmev) 1,000 mg in 100 mls @ 400 mls/hr IV NOW ONE Stop: 01/04/23 10:52 Last Infusion: 01/04/23 11:09 Dose: 0 mls/hr Documented By: Admin: 01/04/23 10:43 Dose: 400 mls/hr Documented By: ISELA Vital Signs Vital signs: Vital Signs - 8 hr 01/04/23 07:11 01/04/23 07:17 01/04/23 07:08 Temperature 98.4 F Pulse Rate 112 H 112 H Respiratory Rate 45 H Blood Pressure 139/66 Pulse Oximetry 98 99 Oxygen Delivery Method Room Air Oxygen Flow Rate Fraction of Inspired Oxygen 60 01/04/23 07:10 01/04/23 07:10 01/04/23 07:15 Temperature Pulse Rate 112 H Respiratory Rate 44 H Blood Pressure 139/66 138/66 Pulse Oximetry 96 Oxygen Delivery Method Oxygen Flow Rate Fraction of Inspired Oxygen 01/04/23 07:15 01/04/23 07:20 01/04/23 07:20 Temperature Pulse Rate 112 H 112 H Respiratory Rate 43 H 30 H Blood Pressure 127/59 L Pulse Oximetry 98 99 Oxygen Delivery Method Oxygen Flow Rate Fraction of Inspired Oxygen 01/04/23 07:25 01/04/23 07:25 01/04/23 07:30 Temperature Pulse Rate 110 H Respiratory Rate 37 H Blood Pressure 124/62 121/62 Pulse Oximetry 98 Oxygen Delivery Method BiPAP Oxygen Flow Rate Fraction of Inspired Oxygen 01/04/23 07:30 01/04/23 07:35 01/04/23 07:35 Temperature Pulse Rate 109 H 109 H Respiratory Rate 35 H 34 H Blood Pressure 116/64 Pulse Oximetry 98 99 Oxygen Delivery Method Oxygen Flow Rate Fraction of Inspired Oxygen 01/04/23 07:40 01/04/23 07:40 01/04/23 07:45 Temperature Pulse Rate 109 H 109 H Respiratory Rate 35 H 39 H Blood Pressure 118/58 L Pulse Oximetry 97 98 Oxygen Delivery Method Oxygen Flow Rate Fraction of Inspired Oxygen 01/04/23 07:46 01/04/23 07:46 01/04/23 07:50 Temperature Pulse Rate 109 H Respiratory Rate 35 H Blood Pressure 146/63 H 123/80 Pulse Oximetry 98 Oxygen Delivery Method Oxygen Flow Rate Fraction of Inspired Oxygen 01/04/23 07:50 01/04/23 07:55 01/04/23 07:55 Temperature Pulse Rate 108 H 109 H Respiratory Rate 33 H 35 H Blood Pressure 121/60 Pulse Oximetry 98 Oxygen Delivery Method Oxygen Flow Rate Fraction of Inspired Oxygen 01/04/23 08:00 01/04/23 08:00 01/04/23 08:05 Temperature Pulse Rate 107 H 105 H Respiratory Rate 33 H 36 H Blood Pressure 116/60 Pulse Oximetry 96 98 Oxygen Delivery Method Oxygen Flow Rate Fraction of Inspired Oxygen 01/04/23 08:05 01/04/23 07:37 01/04/23 08:11 Temperature Pulse Rate Respiratory Rate Blood Pressure 117/64 94/53 L Pulse Oximetry Oxygen Delivery Method Oxygen Flow Rate Fraction of Inspired Oxygen 50 01/04/23 08:11 01/04/23 08:14 01/04/23 08:14 Temperature Pulse Rate 107 H 105 H Respiratory Rate 34 H 31 H Blood Pressure 105/64 Pulse Oximetry 98 98 Oxygen Delivery Method BiPAP Oxygen Flow Rate Fraction of Inspired Oxygen 01/04/23 08:20 01/04/23 08:20 01/04/23 08:22 Temperature Pulse Rate 106 H 106 H Respiratory Rate 29 H 31 H Blood Pressure 90/48 L Pulse Oximetry 99 99 Oxygen Delivery Method Oxygen Flow Rate Fraction of Inspired Oxygen 01/04/23 08:22 01/04/23 08:30 01/04/23 08:30 Temperature Pulse Rate 106 H Respiratory Rate 13 Blood Pressure 102/65 104/62 Pulse Oximetry 99 Oxygen Delivery Method Oxygen Flow Rate Fraction of Inspired Oxygen 01/04/23 08:40 01/04/23 08:40 01/04/23 08:51 Temperature Pulse Rate 106 H 105 H Respiratory Rate 17 32 H Blood Pressure 102/52 L Pulse Oximetry 99 100 Oxygen Delivery Method Oxygen Flow Rate Fraction of Inspired Oxygen 01/04/23 08:51 01/04/23 09:00 01/04/23 09:00 Temperature Pulse Rate 102 H Respiratory Rate 30 H Blood Pressure 107/57 L 94/55 L Pulse Oximetry 99 Oxygen Delivery Method Oxygen Flow Rate Fraction of Inspired Oxygen 01/04/23 09:10 01/04/23 09:10 01/04/23 09:20 Temperature Pulse Rate 103 H 101 H Respiratory Rate 15 27 H Blood Pressure 110/62 Pulse Oximetry 98 99 Oxygen Delivery Method Oxygen Flow Rate Fraction of Inspired Oxygen 01/04/23 09:20 01/04/23 09:30 01/04/23 09:30 Temperature Pulse Rate 101 H Respiratory Rate 23 Blood Pressure 106/62 112/67 Pulse Oximetry 99 Oxygen Delivery Method Oxygen Flow Rate Fraction of Inspired Oxygen 01/04/23 09:40 01/04/23 09:40 01/04/23 09:50 Temperature Pulse Rate 101 H 100 H Respiratory Rate 29 H 24 Blood Pressure 113/67 Pulse Oximetry 100 99 Oxygen Delivery Method BiPAP Oxygen Flow Rate Fraction of Inspired Oxygen 01/04/23 09:50 01/04/23 10:00 01/04/23 10:00 Temperature 96.6 F L Pulse Rate 101 H Respiratory Rate 23 Blood Pressure 117/68 116/65 Pulse Oximetry 99 Oxygen Delivery Method Oxygen Flow Rate Fraction of Inspired Oxygen 01/04/23 10:10 01/04/23 10:10 01/04/23 10:05 Temperature 99.9 F H Pulse Rate 99 H Respiratory Rate 30 H Blood Pressure 113/66 Pulse Oximetry 98 Oxygen Delivery Method Oxygen Flow Rate Fraction of Inspired Oxygen 40 01/04/23 10:20 01/04/23 10:20 01/04/23 10:30 Temperature 100.8 F H Pulse Rate 100 H Respiratory Rate 28 H Blood Pressure 116/67 113/66 Pulse Oximetry 98 Oxygen Delivery Method Oxygen Flow Rate Fraction of Inspired Oxygen 01/04/23 10:30 01/04/23 10:40 01/04/23 10:40 Temperature 100.9 F H 101.1 F H Pulse Rate 99 H 100 H Respiratory Rate 31 H 28 H Blood Pressure 117/68 Pulse Oximetry 98 98 Oxygen Delivery Method Oxygen Flow Rate Fraction of Inspired Oxygen 01/04/23 10:50 01/04/23 10:50 01/04/23 11:00 Temperature 101.1 F H Pulse Rate 100 H Respiratory Rate 31 H Blood Pressure 118/73 115/64 Pulse Oximetry 99 Oxygen Delivery Method Oxygen Flow Rate Fraction of Inspired Oxygen 01/04/23 11:00 01/04/23 11:10 01/04/23 11:10 Temperature 101.1 F H 101.1 F H Pulse Rate 98 H 98 H Respiratory Rate 24 26 H Blood Pressure 117/73 Pulse Oximetry 98 99 Oxygen Delivery Method BiPAP Oxygen Flow Rate Fraction of Inspired Oxygen 01/04/23 11:20 01/04/23 11:20 01/04/23 11:30 Temperature 101.1 F H Pulse Rate 100 H Respiratory Rate 31 H Blood Pressure 119/72 113/59 L Pulse Oximetry 99 Oxygen Delivery Method Oximask Oxygen Flow Rate 6 Fraction of Inspired Oxygen 01/04/23 11:30 01/04/23 11:40 01/04/23 11:40 Temperature 100.9 F H 100.9 F H Pulse Rate 98 H 99 H Respiratory Rate 31 H 34 H Blood Pressure 119/63 Pulse Oximetry 99 99 Oxygen Delivery Method Oxygen Flow Rate Fraction of Inspired Oxygen 01/04/23 11:48 01/04/23 11:48 01/04/23 11:54 Temperature 100.8 F H 100.6 F H Pulse Rate 100 H 100 H Respiratory Rate 35 H 44 H Blood Pressure 111/59 L Pulse Oximetry 96 Oxygen Delivery Method Oxygen Flow Rate Fraction of Inspired Oxygen 01/04/23 11:54 01/04/23 12:00 01/04/23 12:00 Temperature 100.8 F H Pulse Rate 100 H Respiratory Rate 30 H Blood Pressure 117/56 L 123/60 Pulse Oximetry 98 Oxygen Delivery Method Oxygen Flow Rate Fraction of Inspired Oxygen 01/04/23 12:06 01/04/23 12:06 01/04/23 12:10 Temperature 100.6 F H 100.6 F H Pulse Rate 100 H 98 H Respiratory Rate 30 H 26 H Blood Pressure 114/56 L Pulse Oximetry 100 100 Oxygen Delivery Method BiPAP Oxygen Flow Rate Fraction of Inspired Oxygen 01/04/23 12:10 01/04/23 12:20 01/04/23 12:20 Temperature 100.4 F H Pulse Rate 97 H Respiratory Rate 28 H Blood Pressure 114/55 L 112/58 L Pulse Oximetry 99 Oxygen Delivery Method BiPAP Oxygen Flow Rate Fraction of Inspired Oxygen 01/04/23 12:30 01/04/23 12:30 01/04/23 12:15 Temperature 100.4 F H Pulse Rate 98 H Respiratory Rate 27 H Blood Pressure 109/55 L Pulse Oximetry 99 Oxygen Delivery Method BiPAP Oxygen Flow Rate Fraction of Inspired Oxygen 35 01/04/23 12:40 01/04/23 12:40 01/04/23 12:50 Temperature 100.4 F H Pulse Rate 96 H Respiratory Rate 28 H Blood Pressure 100/58 L 106/58 L Pulse Oximetry 99 Oxygen Delivery Method Oxygen Flow Rate Fraction of Inspired Oxygen 01/04/23 12:50 01/04/23 13:00 01/04/23 13:00 Temperature 100.4 F H 100.4 F H Pulse Rate 97 H 97 H Respiratory Rate 29 H 29 H Blood Pressure 112/59 L Pulse Oximetry 99 98 Oxygen Delivery Method Oxygen Flow Rate Fraction of Inspired Oxygen 01/04/23 13:10 01/04/23 13:10 01/04/23 13:20 Temperature 100.4 F H 100.4 F H Pulse Rate 97 H 97 H Respiratory Rate 32 H 29 H Blood Pressure 108/60 Pulse Oximetry 98 100 Oxygen Delivery Method Oxygen Flow Rate Fraction of Inspired Oxygen 01/04/23 13:20 01/04/23 13:30 01/04/23 13:59 Temperature 100.6 F H 101.1 F H Pulse Rate 98 H 100 H Respiratory Rate 31 H 34 H Blood Pressure 110/59 L Pulse Oximetry 100 98 Oxygen Delivery Method BiPAP Oxygen Flow Rate Fraction of Inspired Oxygen 01/04/23 13:59 01/04/23 14:00 01/04/23 14:00 Temperature 101.1 F H Pulse Rate 100 H Respiratory Rate 34 H Blood Pressure 117/64 120/67 Pulse Oximetry 100 Oxygen Delivery Method Oxygen Flow Rate Fraction of Inspired Oxygen 01/04/23 14:20 01/04/23 14:20 Temperature 101.7 F H Pulse Rate 101 H Respiratory Rate 39 H Blood Pressure 119/61 Pulse Oximetry 97 Oxygen Delivery Method Oxygen Flow Rate Fraction of Inspired Oxygen Medical Decision Making Medical Records Medical records reviewed: Yes I reviewed the patient's medical records. Lab Data Lab results reviewed: Yes I reviewed the patient's lab results. 01/04/23 07:00 01/04/23 07:00 Labs: Lab Results 01/04/23 01/04/23 01/04/23 Range/Units 07:00 07:00 07:00 WBC 51.6 H* (4.5-11.0) X10^3/uL RBC 4.58 (4.0-5.2) X10^6/uL Hgb 9.6 L (12.0-16.0) g/dL Hct 31.2 L (36-46) % MCV 68.1 L (80-100) fL MCH 20.9 L (26-34) PG MCHC 30.7 (30-36) % RDW 19.5 H (11.6-14.8) % Plt Count 425 H (150-400) X10^3/uL Neut % (Auto) Not Reportable Lymph % (Auto) Not Reportable Richardson % (Auto) Not Reportable Eos % (Auto) Not Reportable Baso % (Auto) Not Reportable Lymph # (Auto) Not Reportable Richardson # (Auto) Not Reportable Baso # (Auto) Not Reportable Total Counted 100 Seg Neutrophils % 67.0 (38-70) % Band Neutrophils % 29.0 H (3-7) % Atypical Lymphs % 2.0 H ( - 0) % Monocytes % (Manual) 2.0 (2-11) % Neutrophils # (Manual) 16216 H (3102-4152) /uL Toxic Granulation Present H Toxic Vacuolation Present H RBC Morphology See below Hypochromasia 1+ H Anisocytosis 2+ H Microcytosis 2+ H Stomatocytes 1+ H PT 15.7 H (10.1-12.7) SECONDS INR 1.4 H (0.9-1.3) APTT 32 (26-36) SECONDS ABG pH (7.35-7.45) ABG pCO2 (35-45) mmHg ABG pO2 (80-100) mmHg ABG HCO3 (23-27) mmol/L ABG Total CO2 (23-27) mmol/L ABG O2 Saturation (95-100) % ABG Base Excess (-2-3) mmol/L FiO2 Sodium 128 L (137-145) mmol/L Potassium 5.0 (3.4-5.1) mmol/L Chloride 92 L (98-107) mmol/L Carbon Dioxide 28 (22-32) mmol/L BUN 18 H (7-17) mg/dL Creatinine 0.57 (0.52-1.04) mg/dL Estimated GFR > 60 (>60) mL/min BUN/Creatinine Ratio 31.6 H (6-22) Glucose 261 H (80-110) mg/dL Lactate (0.7-2.1) mmol/L Calcium 9.2 (8.4-10.2) mg/dL Magnesium 1.3 L (1.6-2.3) mg/dL Total Bilirubin 0.7 (0.2-1.3) mg/dL AST 43 H (14-36) IU/L ALT 37 H (<35) IU/L Alkaline Phosphatase 123 (38-126) U/L Total Creatine Kinase 53 (30-135) U/L Troponin I 0.092 H (0.01-0.034) ng/mL NT-Pro-B Natriuret Pep 8580 H (<125) pg/mL Total Protein 7.4 (6.3-8.2) g/dL Albumin 3.6 (3.5-5.0) g/dL Globulin 3.8 (1.7-4.1) g/dL Albumin/Globulin Ratio 0.9 L (1.0-2.8) Lipase 12 L (23-300) U/L Procalcitonin (<0.5) ng/mL Urine Color Urine Appearance Urine pH (4.5-8.0) Ur Specific [place] (1.000-1.035) Urine Protein (Negative) Urine Glucose (UA) (Negative) g/dL Urine Ketones (NEGATIVE) Urine Occult Blood (Negative) Urine Nitrate (Negative) Urine Bilirubin (NEGATIVE) Urine Urobilinogen (0.2) E.U./dL Ur Leukocyte Esterase (NEGATIVE) Urine RBC (0-5/HPF) Urine WBC (0-5/HPF) Ur Squamous Epith Cells (0-5/HPF) Urine Bacteria (None) Ur Culture Indicated? Chlamy pneumoniae PCR (Not Detect) Adenovirus (PCR) (Not Detect) B. pertussis DNA (PCR) (Not Detecte) B.parapertussis DNA PCR (Not Detecte) Coronavirus OC43 (PCR) (Not Detect) Coronavirus HKU1 (PCR) (Not Detect) Coronavirus 229E (PCR) (Not Detect) SARS-CoV-2 (PCR) (Not Detecte) Coronavirus NL63 (PCR) (Not Detect) Human Metapneumovir PCR (Not Detect) Influenza Type A (PCR) (Not Detect) Influenza Type B (PCR) (Not Detect) M. pneumoniae (PCR) (Not Detect) Parainfluenza 1 (PCR) (Not Detect) Parainfluenza 2 (PCR) (Not Detect) Parainfluenza 3 (PCR) (Not Detect) Parainfluenza 4 (PCR) (Not Detect) RSV (PCR) (Not Detect) Entero/Rhino (PCR) (Not Detect) 01/04/23 01/04/23 01/04/23 Range/Units 07:00 07:00 07:28 WBC (4.5-11.0) X10^3/uL RBC (4.0-5.2) X10^6/uL Hgb (12.0-16.0) g/dL Hct (36-46) % MCV (80-100) fL MCH (26-34) PG MCHC (30-36) % RDW (11.6-14.8) % Plt Count (150-400) X10^3/uL Neut % (Auto) Lymph % (Auto) Richardson % (Auto) Eos % (Auto) Baso % (Auto) Lymph # (Auto) Richardson # (Auto) Baso # (Auto) Total Counted Seg Neutrophils % (38-70) % Band Neutrophils % (3-7) % Atypical Lymphs % ( - 0) % Monocytes % (Manual) (2-11) % Neutrophils # (Manual) (4227-6337) /uL Toxic Granulation Toxic Vacuolation RBC Morphology Hypochromasia Anisocytosis Microcytosis Stomatocytes PT (10.1-12.7) SECONDS INR (0.9-1.3) APTT (26-36) SECONDS ABG pH 7.42 (7.35-7.45) ABG pCO2 42.3 (35-45) mmHg ABG pO2 197 H (80-100) mmHg ABG HCO3 27 (23-27) mmol/L ABG Total CO2 29 H (23-27) mmol/L ABG O2 Saturation 100 (95-100) % ABG Base Excess 3.0 (-2-3) mmol/L FiO2 60 Sodium (137-145) mmol/L Potassium (3.4-5.1) mmol/L Chloride (98-107) mmol/L Carbon Dioxide (22-32) mmol/L BUN (7-17) mg/dL Creatinine (0.52-1.04) mg/dL Estimated GFR (>60) mL/min BUN/Creatinine Ratio (6-22) Glucose (80-110) mg/dL Lactate 4.4 H* (0.7-2.1) mmol/L Calcium (8.4-10.2) mg/dL Magnesium (1.6-2.3) mg/dL Total Bilirubin (0.2-1.3) mg/dL AST (14-36) IU/L ALT (<35) IU/L Alkaline Phosphatase (38-126) U/L Total Creatine Kinase (30-135) U/L Troponin I (0.01-0.034) ng/mL NT-Pro-B Natriuret Pep (<125) pg/mL Total Protein (6.3-8.2) g/dL Albumin (3.5-5.0) g/dL Globulin (1.7-4.1) g/dL Albumin/Globulin Ratio (1.0-2.8) Lipase (23-300) U/L Procalcitonin (<0.5) ng/mL Urine Color Urine Appearance Urine pH (4.5-8.0) Ur Specific [place] (1.000-1.035) Urine Protein (Negative) Urine Glucose (UA) (Negative) g/dL Urine Ketones (NEGATIVE) Urine Occult Blood (Negative) Urine Nitrate (Negative) Urine Bilirubin (NEGATIVE) Urine Urobilinogen (0.2) E.U./dL Ur Leukocyte Esterase (NEGATIVE) Urine RBC (0-5/HPF) Urine WBC (0-5/HPF) Ur Squamous Epith Cells (0-5/HPF) Urine Bacteria (None) Ur Culture Indicated? Chlamy pneumoniae PCR Not detected (Not Detect) Adenovirus (PCR) Not detected (Not Detect) B. pertussis DNA (PCR) Not detected (Not Detecte) B.parapertussis DNA PCR Not detected (Not Detecte) Coronavirus OC43 (PCR) Not detected (Not Detect) Coronavirus HKU1 (PCR) Not detected (Not Detect) Coronavirus 229E (PCR) Not detected (Not Detect) SARS-CoV-2 (PCR) Not detected (Not Detecte) Coronavirus NL63 (PCR) Not detected (Not Detect) Human Metapneumovir PCR Not detected (Not Detect) Influenza Type A (PCR) Not detected (Not Detect) Influenza Type B (PCR) Not detected (Not Detect) M. pneumoniae (PCR) Not detected (Not Detect) Parainfluenza 1 (PCR) Not detected (Not Detect) Parainfluenza 2 (PCR) Not detected (Not Detect) Parainfluenza 3 (PCR) Not detected (Not Detect) Parainfluenza 4 (PCR) Not detected (Not Detect) RSV (PCR) Not detected (Not Detect) Entero/Rhino (PCR) Not detected (Not Detect) 01/04/23 01/04/23 01/04/23 Range/Units 09:12 09:12 10:03 WBC (4.5-11.0) X10^3/uL RBC (4.0-5.2) X10^6/uL Hgb (12.0-16.0) g/dL Hct (36-46) % MCV (80-100) fL MCH (26-34) PG MCHC (30-36) % RDW (11.6-14.8) % Plt Count (150-400) X10^3/uL Neut % (Auto) Lymph % (Auto) [place] % (Auto) Eos % (Auto) Baso % (Auto) Lymph # (Auto) Richardson # (Auto) Baso # (Auto) Total Counted Seg Neutrophils % (38-70) % Band Neutrophils % (3-7) % Atypical Lymphs % ( - 0) % Monocytes % (Manual) (2-11) % Neutrophils # (Manual) ([id number]) /uL Toxic Granulation Toxic Vacuolation RBC Morphology Hypochromasia Anisocytosis Microcytosis Stomatocytes PT (10.1-12.7) SECONDS INR (0.9-1.3) APTT (26-36) SECONDS ABG pH (7.35-7.45) ABG pCO2 (35-45) mmHg ABG pO2 (80-100) mmHg ABG HCO3 (23-27) mmol/L ABG Total CO2 (23-27) mmol/L ABG O2 Saturation (95-100) % ABG Base Excess (-2-3) mmol/L FiO2 Sodium (137-145) mmol/L Potassium (3.4-5.1) mmol/L Chloride (98-107) mmol/L Carbon Dioxide (22-32) mmol/L BUN (7-17) mg/dL Creatinine (0.52-1.04) mg/dL Estimated GFR (>60) mL/min BUN/Creatinine Ratio (6-22) Glucose (80-110) mg/dL Lactate 5.4 H* (0.7-2.1) mmol/L Calcium (8.4-10.2) mg/dL Magnesium (1.6-2.3) mg/dL Total Bilirubin (0.2-1.3) mg/dL AST (14-36) IU/L ALT (<35) IU/L Alkaline Phosphatase (38-126) U/L Total Creatine Kinase 63 (30-135) U/L Troponin I 0.123 H* (0.01-0.034) ng/mL NT-Pro-B Natriuret Pep (<125) pg/mL Total Protein (6.3-8.2) g/dL Albumin (3.5-5.0) g/dL Globulin (1.7-4.1) g/dL Albumin/Globulin Ratio (1.0-2.8) Lipase (23-300) U/L Procalcitonin 3.28 H (<0.5) ng/mL Urine Color Yellow Urine Appearance Clear Urine pH 5.0 (4.5-8.0) Ur Specific [place] 1.020 (1.000-1.035) Urine Protein 1+ H (Negative) Urine Glucose (UA) Negative (Negative) g/dL Urine Ketones Negative (NEGATIVE) Urine Occult Blood 1+ H (Negative) Urine Nitrate Positive H (Negative) Urine Bilirubin Negative (NEGATIVE) Urine Urobilinogen 0.2 (0.2) E.U./dL Ur Leukocyte Esterase Negative (NEGATIVE) Urine RBC 1-5/hpf (0-5/HPF) Urine WBC 1-5/hpf (0-5/HPF) Ur Squamous Epith Cells 1-5 /hpf (0-5/HPF) Urine Bacteria Many (>30) H (None) Ur Culture Indicated? Specimen cultured Chlamy pneumoniae PCR (Not Detect) Adenovirus (PCR) (Not Detect) B. pertussis DNA (PCR) (Not Detecte) B.parapertussis DNA PCR (Not Detecte) Coronavirus OC43 (PCR) (Not Detect) Coronavirus HKU1 (PCR) (Not Detect) Coronavirus 229E (PCR) (Not Detect) SARS-CoV-2 (PCR) (Not Detecte) Coronavirus NL63 (PCR) (Not Detect) Human Metapneumovir PCR (Not Detect) Influenza Type A (PCR) (Not Detect) Influenza Type B (PCR) (Not Detect) M. pneumoniae (PCR) (Not Detect) Parainfluenza 1 (PCR) (Not Detect) Parainfluenza 2 (PCR) (Not Detect) Parainfluenza 3 (PCR) (Not Detect) Parainfluenza 4 (PCR) (Not Detect) RSV (PCR) (Not Detect) Entero/Rhino (PCR) (Not Detect) 01/04/23 01/04/23 01/04/23 Range/Units 11:15 12:10 13:00 WBC (4.5-11.0) X10^3/uL RBC (4.0-5.2) X10^6/uL Hgb (12.0-16.0) g/dL Hct (36-46) % MCV (80-100) fL MCH (26-34) PG MCHC (30-36) % RDW (11.6-14.8) % Plt Count (150-400) X10^3/uL Neut % (Auto) Lymph % (Auto) Richardson % (Auto) Eos % (Auto) Baso % (Auto) Lymph # (Auto) Richardson # (Auto) Baso # (Auto) Total Counted Seg Neutrophils % (38-70) % Band Neutrophils % (3-7) % Atypical Lymphs % ( - 0) % Monocytes % (Manual) (2-11) % Neutrophils # (Manual) (5532-8415) /uL Toxic Granulation Toxic Vacuolation RBC Morphology Hypochromasia Anisocytosis Microcytosis Stomatocytes PT (10.1-12.7) SECONDS INR (0.9-1.3) APTT (26-36) SECONDS ABG pH (7.35-7.45) ABG pCO2 (35-45) mmHg ABG pO2 (80-100) mmHg ABG HCO3 (23-27) mmol/L ABG Total CO2 (23-27) mmol/L ABG O2 Saturation (95-100) % ABG Base Excess (-2-3) mmol/L FiO2 Sodium (137-145) mmol/L Potassium (3.4-5.1) mmol/L Chloride (98-107) mmol/L Carbon Dioxide (22-32) mmol/L BUN (7-17) mg/dL Creatinine (0.52-1.04) mg/dL Estimated GFR (>60) mL/min BUN/Creatinine Ratio (6-22) Glucose (80-110) mg/dL Lactate 5.2 H* 4.1 H* (0.7-2.1) mmol/L Calcium (8.4-10.2) mg/dL Magnesium (1.6-2.3) mg/dL Total Bilirubin (0.2-1.3) mg/dL AST (14-36) IU/L ALT (<35) IU/L Alkaline Phosphatase (38-126) U/L Total Creatine Kinase 63 (30-135) U/L Troponin I 0.142 H* (0.01-0.034) ng/mL NT-Pro-B Natriuret Pep (<125) pg/mL Total Protein (6.3-8.2) g/dL Albumin (3.5-5.0) g/dL Globulin (1.7-4.1) g/dL Albumin/Globulin Ratio (1.0-2.8) Lipase (23-300) U/L Procalcitonin (<0.5) ng/mL Urine Color Urine Appearance Urine pH (4.5-8.0) Ur Specific [place] (1.000-1.035) Urine Protein (Negative) Urine Glucose (UA) (Negative) g/dL Urine Ketones (NEGATIVE) Urine Occult Blood (Negative) Urine Nitrate (Negative) Urine Bilirubin (NEGATIVE) Urine Urobilinogen (0.2) E.U./dL Ur Leukocyte Esterase (NEGATIVE) Urine RBC (0-5/HPF) Urine WBC (0-5/HPF) Ur Squamous Epith Cells (0-5/HPF) Urine Bacteria (None) Ur Culture Indicated? Chlamy pneumoniae PCR (Not Detect) Adenovirus (PCR) (Not Detect) B. pertussis DNA (PCR) (Not Detecte) B.parapertussis DNA PCR (Not Detecte) Coronavirus OC43 (PCR) (Not Detect) Coronavirus HKU1 (PCR) (Not Detect) Coronavirus 229E (PCR) (Not Detect) SARS-CoV-2 (PCR) (Not Detecte) Coronavirus NL63 (PCR) (Not Detect) Human Metapneumovir PCR (Not Detect) Influenza Type A (PCR) (Not Detect) Influenza Type B (PCR) (Not Detect) M. pneumoniae (PCR) (Not Detect) Parainfluenza 1 (PCR) (Not Detect) Parainfluenza 2 (PCR) (Not Detect) Parainfluenza 3 (PCR) (Not Detect) Parainfluenza 4 (PCR) (Not Detect) RSV (PCR) (Not Detect) Entero/Rhino (PCR) (Not Detect) 01/04/23 Range/Units 13:23 WBC (4.5-11.0) X10^3/uL RBC (4.0-5.2) X10^6/uL Hgb (12.0-16.0) g/dL Hct (36-46) % MCV (80-100) fL MCH (26-34) PG MCHC (30-36) % RDW (11.6-14.8) % Plt Count (150-400) X10^3/uL Neut % (Auto) Lymph % (Auto) Richardson % (Auto) Eos % (Auto) Baso % (Auto) Lymph # (Auto) Richardson # (Auto) Baso # (Auto) Total Counted Seg Neutrophils % (38-70) % Band Neutrophils % (3-7) % Atypical Lymphs % ( - 0) % Monocytes % (Manual) (2-11) % Neutrophils # (Manual) (7835-2306) /uL Toxic Granulation Toxic Vacuolation RBC Morphology Hypochromasia Anisocytosis Microcytosis Stomatocytes PT (10.1-12.7) SECONDS INR (0.9-1.3) APTT (26-36) SECONDS ABG pH 7.37 (7.35-7.45) ABG pCO2 47.3 H (35-45) mmHg ABG pO2 111 H (80-100) mmHg ABG HCO3 27 (23-27) mmol/L ABG Total CO2 29 H (23-27) mmol/L ABG O2 Saturation 98 (95-100) % ABG Base Excess 2.0 (-2-3) mmol/L FiO2 35 Sodium (137-145) mmol/L Potassium (3.4-5.1) mmol/L Chloride (98-107) mmol/L Carbon Dioxide (22-32) mmol/L BUN (7-17) mg/dL Creatinine (0.52-1.04) mg/dL Estimated GFR (>60) mL/min BUN/Creatinine Ratio (6-22) Glucose (80-110) mg/dL Lactate (0.7-2.1) mmol/L Calcium (8.4-10.2) mg/dL Magnesium (1.6-2.3) mg/dL Total Bilirubin (0.2-1.3) mg/dL AST (14-36) IU/L ALT (<35) IU/L Alkaline Phosphatase (38-126) U/L Total Creatine Kinase (30-135) U/L Troponin I (0.01-0.034) ng/mL NT-Pro-B Natriuret Pep (<125) pg/mL Total Protein (6.3-8.2) g/dL Albumin (3.5-5.0) g/dL Globulin (1.7-4.1) g/dL Albumin/Globulin Ratio (1.0-2.8) Lipase (23-300) U/L Procalcitonin (<0.5) ng/mL Urine Color Urine Appearance Urine pH (4.5-8.0) Ur Specific [place] (1.000-1.035) Urine Protein (Negative) Urine Glucose (UA) (Negative) g/dL Urine Ketones (NEGATIVE) Urine Occult Blood (Negative) Urine Nitrate (Negative) Urine Bilirubin (NEGATIVE) Urine Urobilinogen (0.2) E.U./dL Ur Leukocyte Esterase (NEGATIVE) Urine RBC (0-5/HPF) Urine WBC (0-5/HPF) Ur Squamous Epith Cells (0-5/HPF) Urine Bacteria (None) Ur Culture Indicated? Chlamy pneumoniae PCR (Not Detect) Adenovirus (PCR) (Not Detect) B. pertussis DNA (PCR) (Not Detecte) B.parapertussis DNA PCR (Not Detecte) Coronavirus OC43 (PCR) (Not Detect) Coronavirus HKU1 (PCR) (Not Detect) Coronavirus 229E (PCR) (Not Detect) SARS-CoV-2 (PCR) (Not Detecte) Coronavirus NL63 (PCR) (Not Detect) Human Metapneumovir PCR (Not Detect) Influenza Type A (PCR) (Not Detect) Influenza Type B (PCR) (Not Detect) M. pneumoniae (PCR) (Not Detect) Parainfluenza 1 (PCR) (Not Detect) Parainfluenza 2 (PCR) (Not Detect) Parainfluenza 3 (PCR) (Not Detect) Parainfluenza 4 (PCR) (Not Detect) RSV (PCR) (Not Detect) Entero/Rhino (PCR) (Not Detect) Imaging Data Chest x-ray: Radiologist's Impression: PROCEDURE:? XR CHEST 1V ? INDICATIONS:? SOB ? TECHNIQUE:? One view of the chest was acquired.? ? COMPARISON:? [facility], , XR CHEST 1V, 09/23/2022, 9:24.? [facility], , XR CHEST 2V, 04/14/2022, 14:07. ? FINDINGS:? ? Surgical changes and devices:? None.? ? Lungs and pleura:? Prominent pulmonary vasculature.? Right basilar atelectasis or infiltrate. ? Mediastinum:? Mediastinal contours appear normal.? Heart size is enlarged.? ? Bones and chest wall:? No suspicious bony lesions.? Overlying soft tissues appear unremarkable.? ? ? IMPRESSION:? Cardiomegaly.? Mild prominence of the pulmonary vasculature, correlate for volume overload.? Right basilar infiltrate, may represent atelectasis, effusion or consolidation. CT scan - chest: Radiologist's Impression: PROCEDURE:? CT ANGIO CHEST PE PROTOCOL ? INDICATIONS:? Chest pain, shortness of breath, tachycardia ? TECHNIQUE:? After the administration of intravenous contrast, 2 mm thick sections acquired from the pulmonary apices to the posterior costophrenic angles.? 3-dimensional maximum intensity projection (MIP) coronal and sagittal reformats were then acquired through the thorax.? For radiation dose reduction, the following was used:? automated exposure control, adjustment of mA and/or kV according to patient size.? ? COMPARISON:? [facility], CT, CT ANGIO CHEST PE PROTOCOL, 09/23/2022, 10:58. ? FINDINGS:? Image quality:? Excellent.? ? Pulmonary arteries:? Dilated main pulmonary artery measuring 3.7 cm. No intraluminal filling defects to suggest central pulmonary embolism.? ? Lungs and pleura:? Mild dependent atelectasis bilaterally.? Again seen mucous plugging of a left upper lobe subsegmental bronchus with associated air trapping.? No pleural effusions or pneumothorax.? Central and peripheral airways are patent.? ? Mediastinum:? Heart size is normal, without pericardial effusion.? Mild coronary artery calcifications.? No mediastinal or hilar adenopathy.? Thoracic aorta is normal in caliber and enhancement.? Aberrant right subclavian artery Mild atherosclerotic vascular calcifications.? Esophagus is normal in caliber, without hiatal hernia.? ? Bones and chest wall:? No suspicious bony lesions.? Degenerative changes of the spine.? Ribs and thoracic spine appear intact throughout.? Thyroid gland is normal.? No axillary or supraclavicular adenopathy.? ? Abdomen:? See separately dictated CT of the abdomen and pelvis. ? IMPRESSION:? ? 1. No evidence of pulmonary embolism. 2. Again noted mucous plugging of a left subsegmental upper lobe bronchus with associated air trapping. 3. Dilated main pulmonary artery, suggestive of pulmonary hypertension. 4. No focal pulmonary consolidations. CT scan - abdomen/pelvis: Radiologist's Impression: PROCEDURE:? CT ABDOMEN PELVIS W CON ? INDICATIONS:? Fever of uncertain origin ? TECHNIQUE:? After the administration of intravenous contrast, axial sections acquired from the lung bases to the pubic symphysis.? Coronal and sagittal reformats were performed.? For radiation dose reduction, the following was used:? automated exposure control, adjustment of mA and/or kV according to patient size.? ? COMPARISON:? [facility], CT, CT ABDOMEN PELVIS W CON, 09/23/2022, 10:58. ? FINDINGS:? Image quality:? Excellent.? ? Lung bases:? Please refer to separately dictated CT of the chest. ? ABDOMEN: Liver:? Enlarged with mildly decreased attenuation, suggestive of hepatic steatosis Gallbladder:? Surgically absent.? ? Biliary ducts:? Unremarkable.? ? Pancreas:? Unremarkable.? ? Spleen:? Unremarkable.? ? Adrenal Glands:? Nodular thickening of the left adrenal gland without defined nodule.? ? Kidneys and Ureters:? Unremarkable.? ? ? Stomach and Bowel:? Stomach, small bowel loops, and colon are unremarkable.? Peritoneum:? No abnormal intraperitoneal fluid.? No free air.? ? Ventral Wall: ? No hernias.? Abdominal Nodes:? No retroperitoneal or mesenteric adenopathy by size criteria.? Vessels:? Aorta and inferior vena cava are normal in size.? Atherosclerotic vascular calcifications. ? PELVIS: Pelvic Organs:? Unremarkable.? ? Bladder:? Fagan catheter in place with a decompressed urinary bladder, limiting evaluation..? ? Pelvic Nodes: No enlarged lymph nodes.? Miscellaneous: No hernias are seen. ? ? ? Bones:? Decreased osseous mineralization.? Multilevel degenerative changes of the spine.? Stable mild but compression deformity of L2. ? ? IMPRESSION:? ? 1. No acute findings within the abdomen or pelvis. 2. Hepatomegaly and suggestion of hepatic steatosis. 3. 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 Initially she arrived and was improving somewhat on BiPAP. Considered CHF exacerbation given her elevation in BNP in her history. She was started on Lasix but only diuresed a small amount. She then developed a fever. Chest x-ray concerning for pneumonia. Cultures were obtained. Antibiotics started. Troponin was slightly elevated. Patient denied chest pain. Discussed the case with Dr. Mccoy sheetmetal patternmaker on-call who recommended echocardiogram and CT scans. CT scan of the abdomen unremarkable. CT scan of the chest show what appears to be mucus plug in the left lung. Attempted to contact pulmonology however we do not have pulmonology coverage today but they will be available tomorrow. Patient was started with gentle hydration. Lactate elevated but then improved. Cultures were obtained. Patient is not hypotensive. Echocardiogram shows no significant wall motion abnormalities. After further discussion with hospitalist we will admit for further evaluation and treatment. Discussed the need for admission with the patient and family. They expressed understanding and agreement as well. Discharge Plan Departure Patient Disposition: Admitted As Inpatient Clinical Impression: CHF (congestive heart failure), Acute respiratory distress, Pneumonia Admit Date/Time: 01/04/23 14:25 Admit Provider: Rafael Mccoy
--- NOTE | 2023-01-04 07:16 | DI.RAD.S_ITS ---
PROCEDURE: XR CHEST 1V INDICATIONS: SOB TECHNIQUE: One view of the chest was acquired. COMPARISON: [facility], CR, XR CHEST 1V, 09/23/2022, 9:24. [facility], CR, XR CHEST 2V, 04/14/2022, 14:07. FINDINGS: Surgical changes and devices: None. Lungs and pleura: Prominent pulmonary vasculature. Right basilar atelectasis or infiltrate. Mediastinum: Mediastinal contours appear normal. Heart size is enlarged. Bones and chest wall: No suspicious bony lesions. Overlying soft tissues appear unremarkable. IMPRESSION: Cardiomegaly. Mild prominence of the pulmonary vasculature, correlate for volume overload. Right basilar infiltrate, may represent atelectasis, effusion or consolidation. Dictated by: Richar Sanches M.D. on 01/04/2023 at 7:59 Approved by: Richar Sanches M.D. on 01/04/2023 at 8:00
[2023-01-04] MEDS: FUROSEMIDE 80 MG in SODIUM CHLORIDE 0.9% 50 ML 116 MG IV (07:22)
[2023-01-04 07:29] LABS: Hematocrit 31.2 % (36-46); Hemoglobin 9.6 g/dL (12.0-16.0); Mean Corpuscular HGB Conc 30.7 % (30-36); Mean Corpuscular Hemoglobin 20.9 PG (26-34); Mean Corpuscular Volume 68.1 fL (80-100); Platelet Count 425 X10^3/uL (150-400); Red Blood Cell Count 4.58 X10^6/uL (4.0-5.2); Red Cell Distribution Width 19.5 % (11.6-14.8)
[2023-01-04 07:37] LABS: Add Manual Diff / Slide Review YES; White Blood Cell Count 51.6 X10^3/uL (4.5-11.0)
[2023-01-04 07:38] LABS: INR 1.4 (0.9-1.3); Prothrombin Time 15.7 SECONDS (10.1-12.7)
[2023-01-04 07:41] LABS: PTT Partial Thromboplastin Tim 32 SECONDS (26-36)
[2023-01-04 07:41] LABS: Fractionated Inspired Oxygen 60; HCO3 ABG 27 mmol/L (23-27); Oxygen Saturation ABG 100 % (95-100); PCO2 ABG 42.3 mmHg (35-45); PO2 ABG 197 mmHg (80-100); TCO2 ABG 29 mmol/L (23-27); pH ABG 7.42 (7.35-7.45)
[2023-01-04 07:43] LABS: Alanine Aminotransferase 37 IU/L (<35); Albumin 3.6 g/dL (3.5-5.0); Albumin Globulin Ratio 0.9 (1.0-2.8); Alkaline Phosphatase 123 U/L (38-126); Aspartate Aminotransferase 43 IU/L (14-36); BUN Creatinine Ratio 31.6 (6-22); Bilirubin Total 0.7 mg/dL (0.2-1.3); Blood Urea Nitrogen 18 mg/dL (7-17); Calcium 9.2 mg/dL (8.4-10.2); Carbon Dioxide 28 mmol/L (22-32); Chloride 92 mmol/L (98-107); Creatine Kinase 53 U/L (30-135); Estimated Glomerular Filt Rate > 60 mL/min (>60); Globulin 3.8 g/dL (1.7-4.1); Glucose 261 mg/dL (80-110); HEMOLYSIS < 15 (0-50); Lipase 12 U/L (23-300); Magnesium 1.3 mg/dL (1.6-2.3); Sodium 128 mmol/L (137-145); Total Protein 7.4 g/dL (6.3-8.2)
[2023-01-04 07:45] LABS: Lactate (Lactic Acid) 4.4 mmol/L (0.7-2.1)
[2023-01-04 07:49] LABS: Neutrophils Absolute Manual 49536 /uL (3000-5900); Total Cells Counted 100
[2023-01-04] MEDS: AZITHROMYCIN 500 MG in DEXTROSE 5% IN WATER 250 ML 250 MG IV (07:50)
[2023-01-04 07:51] LABS: Anisocytosis 2+; Microcytosis 2+; Stomatocytes 1+
[2023-01-04 07:52] LABS: Hypochromasia 1+; Toxic Granulation Present; Toxic Vacuolation Present
[2023-01-04 07:54] LABS: NT-proBNP (BNP-Adult 18+) 8580 pg/mL (<125); Troponin I 0.092 ng/mL (0.01-0.034)
[2023-01-04 08:19] LABS: Adenovirus Not Detected (Not Detect); B. parapertussis Not Detected (Not Detecte); Bordetella pertussis Not Detected (Not Detecte); Chlamydophila pneumoniae Not Detected (Not Detect); Coronavirus 229E Not Detected (Not Detect); Coronavirus HKU1 Not Detected (Not Detect); Coronavirus NL 63 Not Detected (Not Detect); Coronavirus OC43 Not Detected (Not Detect); Human Metapneumovirus Not Detected (Not Detect); Human Rhinovirus/Enterovirus Not Detected (Not Detect); Influenza A Not Detected (Not Detect); Influenza B Not Detected (Not Detect); Mycoplasma pneumoniae Not Detected (Not Detect); Parainfluenza Virus 1 Not Detected (Not Detect); Parainfluenza Virus 2 Not Detected (Not Detect); Parainfluenza Virus 3 Not Detected (Not Detect); Parainfluenza Virus 4 Not Detected (Not Detect); Respiratory Syncytial Virus Not Detected (Not Detect); SARS- CoV-2 Not Detected (Not Detecte)
[2023-01-04] MEDS: MAGNESIUM SULFATE 2 GM/50 ML PIGGYBACK IV (08:29)
[2023-01-04 09:21] LABS: Reflexed Lactate in 2 Hours Y
[2023-01-04 09:40] LABS: Creatine Kinase 63 U/L (30-135)
[2023-01-04] MEDS: cefTRIAXone 1,000 MG in SODIUM CHLORIDE 0.9% 100 ML 200 MG IV (09:40)
[2023-01-04 09:41] LABS: Lactate 2HR (Lactic Acid Rflx) 5.4 mmol/L (0.7-2.1)
[2023-01-04 09:54] LABS: Troponin I 0.123 ng/mL (0.01-0.034)
[2023-01-04 09:57] LABS: Procalcitonin 3.28 ng/mL (<0.5)
--- NOTE | 2023-01-04 10:07 | PC.NURSE ---
Late entry, at 0745 RN notified for a lactate of 4.4, antibiotics ordered, no fluids ordered at that time. Later around 0900 RN notified about blood pressures trending downward with the lowest reading 94/55, no new orders at that time. Around 1000 NS ordered at 100ml/hr and administered. Continuing to monitor respiratory status and urinary output.
[2023-01-04] MEDS: SODIUM CHLORIDE 0.9% 1,000 ML 100 ML IV (10:08)
--- NOTE | 2023-01-04 10:13 | DI.ECHO.S_ITS ---
[facility] +---------+ : : [address] [place] : : : : [id number] : : : : Phone: [phone] Echocardiogram Report + + :Name: MITRA VERMA Study Date: 01/04/2023 Height: 64 in : :[facility] ReadingLocation: Weight: 245 lb : : Gender: Female BSA: 2.1 m2 : :: 1960 Age: 63 yrs BP: 113/66 mmHg: :Reason For Study: ELEVATED TROPONINS : :Ordering Physician: HEBER, : :JOSÉ Performed By: Sheeba Kerr : :Referring: JOSÉ BUCK : + + Interpretation Summary Technically difficult study. Borderline concentric left ventricular hypertrophy with ejection fraction 55- 60%. Calcified mitral apparatus causing mitral stenosis. Mild mitral stenosis. The mitral valve mean gradient is 4.0 mmHg. Moderate pulmonary hypertension. The right ventricular systolic pressure is estimated to be at least 56 mmHg based on an estimated right atrial pressure of 15 mm Hg. Comparison is made with the echocardiogram of 09/24/22., there has been no signficant change. Procedure: The study quality was technically limited. The study quality was technically difficult. A contrast injection of Definity was performed to improve assessment of LV function. Comparison is made with the echocardiogram of 09/24/22. The heart rate ranged between 98-101 bpm during the study. Left Ventricle: The left ventricle is normal in size. There is borderline concentric left ventricular hypertrophy. The ejection fraction is estimated to be 55-60%. There are no obvious focal wall motion abnormalities noted but poor endocardial definition reduces the sensitivity for the detection of such. Right Ventricle: The right ventricle is not well visualized. Atria: The left atrium is not well visualized. Right atrium not well visualized. Mitral Valve: The mitral valve leaflets are mildly calcified. Calcified mitral apparatus causing mitral stenosis. There is mild mitral stenosis. The mitral valve mean gradient is 4.0 mmHg. Aortic Valve: The aortic valve is grossly normal. Tricuspid Valve: There is moderate pulmonary hypertension. The right ventricular systolic pressure is estimated to be at least 56 mmHg based on an estimated right atrial pressure of 15 mm Hg. Great Vessels: The IVC is dilated (diameter is greater than 2.1 cm) and it collapses less than 50% with a sniff. This suggests a high right atrial pressure of 15 mm Hg. Pericardium/ Pleura There is no pericardial effusion. There is no pleural effusion. MMode/2D Measurements & Calculations LVIDd: 5.2 cm IVC diam: 2.1 cm LVIDs: 4.2 cm FS: 20.1 % EPSS: 1.2 cm IVSd: 0.82 cm LVPWd: 1.2 cm LV nash. diameter/BSA (cm/m^2): 2.4 LV sys. diameter/BSA (cm/m^2): 2.0 Doppler Measurements & Calculations TR max emilie: 319.8 cm/sec MV V2 mean: 91.6 cm/sec TR max P.9 mmHg MV mean P.0 mmHg MV V2 VTI: 36.1 cm Electronically signed by: Corwin Martinez on Reading Physician:01/04/2023 02:13 PM
--- NOTE | 2023-01-04 10:14 | DI.CT.S_ITS ---
PROCEDURE: CT ANGIO CHEST PE PROTOCOL INDICATIONS: Chest pain, shortness of breath, tachycardia TECHNIQUE: After the administration of intravenous contrast, 2 mm thick sections acquired from the pulmonary apices to the posterior costophrenic angles. 3-dimensional maximum intensity projection (MIP) coronal and sagittal reformats were then acquired through the thorax. For radiation dose reduction, the following was used: automated exposure control, adjustment of mA and/or kV according to patient size. COMPARISON: [facility], CT, CT ANGIO CHEST PE PROTOCOL, 09/23/2022, 10:58. FINDINGS: Image quality: Excellent. Pulmonary arteries: Dilated main pulmonary artery measuring 3.7 cm. No intraluminal filling defects to suggest central pulmonary embolism. Lungs and pleura: Mild dependent atelectasis bilaterally. Again seen mucous plugging of a left upper lobe subsegmental bronchus with associated air trapping. No pleural effusions or pneumothorax. Central and peripheral airways are patent. Mediastinum: Heart size is normal, without pericardial effusion. Mild coronary artery calcifications. No mediastinal or hilar adenopathy. Thoracic aorta is normal in caliber and enhancement. Aberrant right subclavian artery Mild atherosclerotic vascular calcifications. Esophagus is normal in caliber, without hiatal hernia. Bones and chest wall: No suspicious bony lesions. Degenerative changes of the spine. Ribs and thoracic spine appear intact throughout. Thyroid gland is normal. No axillary or supraclavicular adenopathy. Abdomen: See separately dictated CT of the abdomen and pelvis. IMPRESSION: 1. No evidence of pulmonary embolism. 2. Again noted mucous plugging of a left subsegmental upper lobe bronchus with associated air trapping. 3. Dilated main pulmonary artery, suggestive of pulmonary hypertension. 4. No focal pulmonary consolidations. Dictated by: Richar Sanches M.D. on 01/04/2023 at 12:31 Approved by: Richar Sanches M.D. on 01/04/2023 at 12:38
[2023-01-04 10:42] LABS: Appearance Urine UA CLEAR; Bilirubin Urine UA NEGATIVE (NEGATIVE); Color Urine UA YELLOW; Glucose Urine UA NEGATIVE (Negative); Ketones Urine UA NEGATIVE (NEGATIVE); Leukocyte Esterase Urine UA NEGATIVE (NEGATIVE); Nitrite Urine UA POSITIVE (Negative); Occult Blood Urine UA 1+ (Negative); Protein Urine UA 1+ (Negative); Urobilinogen Urine UA 0.2 E.U./dL (0.2)
[2023-01-04] MEDS: ACETAMINOPHEN IV 1,000 MG/100 ML VIAL 400 MG IV (10:43)
[2023-01-04 10:53] LABS: Bacteria Urine Many (>30); Culture Indicated Urine Specimen Cultured; RBC Urine 1-5/HPF (0-5/HPF); Squamous Epithelial Cell Urine 1-5 /HPF (0-5/HPF); WBC Urine 1-5/HPF (0-5/HPF)
--- NOTE | 2023-01-04 11:46 | DI.CT.S_ITS ---
PROCEDURE: CT ABDOMEN PELVIS W CON INDICATIONS: Fever of uncertain origin TECHNIQUE: After the administration of intravenous contrast, axial sections acquired from the lung bases to the pubic symphysis. Coronal and sagittal reformats were performed. For radiation dose reduction, the following was used: automated exposure control, adjustment of mA and/or kV according to patient size. COMPARISON: [facility], CT, CT ABDOMEN PELVIS W CON, 09/23/2022, 10:58. FINDINGS: Image quality: Excellent. Lung bases: Please refer to separately dictated CT of the chest. ABDOMEN: Liver: Enlarged with mildly decreased attenuation, suggestive of hepatic steatosis Gallbladder: Surgically absent. Biliary ducts: Unremarkable. Pancreas: Unremarkable. Spleen: Unremarkable. Adrenal Glands: Nodular thickening of the left adrenal gland without defined nodule. Kidneys and Ureters: Unremarkable. Stomach and Bowel: Stomach, small bowel loops, and colon are unremarkable. Peritoneum: No abnormal intraperitoneal fluid. No free air. Ventral Wall: No hernias. Abdominal Nodes: No retroperitoneal or mesenteric adenopathy by size criteria. Vessels: Aorta and inferior vena cava are normal in size. Atherosclerotic vascular calcifications. PELVIS: Pelvic Organs: Unremarkable. Bladder: Fagan catheter in place with a decompressed urinary bladder, limiting evaluation.. Pelvic Nodes: No enlarged lymph nodes. Miscellaneous: No hernias are seen. Bones: Decreased osseous mineralization. Multilevel degenerative changes of the spine. Stable mild but compression deformity of L2. IMPRESSION: 1. No acute findings within the abdomen or pelvis. 2. Hepatomegaly and suggestion of hepatic steatosis. 3. 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 Dictated by: Richar Sanches M.D. on 01/04/2023 at 12:40 Approved by: Richar Sanches M.D. on 01/04/2023 at 12:44
--- NOTE | 2023-01-04 11:46 | PC.NURSE ---
pt placed on 6L oximask while at CT.
--- NOTE | 2023-01-04 12:12 | PC.NURSE ---
pt taken off bipap and placed on 6L oximask during CT. pt did not tolerate lying flat. increased work of breathing and pt more lethargic. rt called. pt placed back in bipap immediately returning to ED.
[2023-01-04 12:22] LABS: Lactate (Lactic Acid) 5.2 mmol/L (0.7-2.1)
[2023-01-04 12:31] LABS: Creatine Kinase 63 U/L (30-135)
[2023-01-04 13:10] LABS: Troponin I 0.142 ng/mL (0.01-0.034)
[2023-01-04 13:29] LABS: Lactate (Lactic Acid) 4.1 mmol/L (0.7-2.1)
[2023-01-04 13:47] LABS: Fractionated Inspired Oxygen 35; HCO3 ABG 27 mmol/L (23-27); Oxygen Saturation ABG 98 % (95-100); PCO2 ABG 47.3 mmHg (35-45); PO2 ABG 111 mmHg (80-100); TCO2 ABG 29 mmol/L (23-27); pH ABG 7.37 (7.35-7.45)
[2023-01-04 14:09] LABS: Reflexed Lactate in 2 Hours Y
--- NOTE | 2023-01-04 14:22 | PC.NURSE ---
RN notified doctor of temp rising again to 101.7f, no new orders at this time.
[2023-01-04 14:47] LABS: Lactate 2HR (Lactic Acid Rflx) 4.6 mmol/L (0.7-2.1)
[2023-01-04 15:07] LABS: Reflexed Lactate in 2 Hours Y
--- NOTE | 2023-01-04 15:37 | P.HP_ITS ---
History of Present Illness History of Present Illness Date Patient Seen: 01/04/23 Time Patient Seen: 15:37 Chief complaint: SOB Narrative: ?Ariana Causey is a 62yo F with PMH of HTN, HLD, morbid obesity, type 2 diabetes with chronic foot wounds followed by wound care, peripheral vascular disease, prior CVA, probable COPD, and active smoker?who presents from [facility] with reported worsening shortness of breath over the past couple of days. Patient is currently on BiPAP, lethargic and not able to reliably participate in additional history. In the emergency room she was found to have a number of issues. She was markedly hypoxic, placed on bipap with improvement. Labs noteable for elevated troponin without marked EKG changes and no chest pain. TTE was performed and was grossly unchanged from before (to evaluate for possible NSTEMI). She was given lasix initially, then added some fluids for possible sepsis. CTA was performed and was negative for PE. Did show possible mucous plugging with air trapping, volume overload, possible infiltrates. UA was grossly positive as well. CT abdomen showed no acute pathologies. She also developed high fever. Procalcitonin was elevated at 3.28. She was admitted to the ICU for further management and evaluation. I did discuss with pulmonology for possible bronchoscopy whom was not impressed with CT findings, and did not believe that to be the etiology of her presentation. [facility] Medical History Abnormal LFTs Acute hyperkalemia CHF (congestive heart failure) Diabetes Leukocytosis (leucocytosis) Pneumonia PVD (peripheral vascular disease) Respiratory failure, acute Right hemiparesis Scalp laceration TIA (transient ischemic attack) Surgical History H/O angioplasty History of cholecystectomy Social History household members: caregiver Smoking Status: Current every day smoker alcohol intake: never Meds Home Medications and Allergies Home Medications Medication Instructions Recorded Confirmed Type acetaminophen 500 mg tablet 1 - 2 tab PO PRN PRN pain/ fever 12/28/16 01/04/23 History (Tylenol Extra Strength) ##0 atorvastatin 80 mg tablet 80 mg PO DAILY 07/08/20 01/04/23 History clopidogrel 75 mg tablet 75 mg PO DAILY 07/08/20 01/04/23 History liraglutide 0.6 mg/0.1 mL (18 mg/3 1.8 mg SUBCUT DAILY 07/08/20 01/04/23 History mL) subcutaneous pen injector (Victoza 3-Nicho) zolpidem 10 mg tablet 10 mg PO QPM 07/08/20 01/04/23 History citalopram 40 mg tablet 40 mg PO DAILY #30 tabs 07/12/20 01/04/23 Rx albuterol 90 mcg/actuation aerosol 2 mcg inhalation Q4H PRN shortness 09/23/22 01/04/23 History inhaler of breath calcium carbonate 300 mg (750 mg) 300 mg PO BID PRN Dyspepsia 09/23/22 01/04/23 History chewable tablet (Calcium Antacid) famotidine 20 mg tablet 20 mg PO DAILY 09/23/22 01/04/23 History fluticasone propionate 50 1 spray intranasal DAILY 09/23/22 01/04/23 History mcg/actuation nasal spray,suspension (Allergy Relief (fluticasone)) mupirocin 2 % topical ointment 1 applic topical DAILY 09/23/22 01/04/23 History nystatin 100,000 unit/gram topical 1 applic topical BID 09/23/22 01/04/23 History powder ondansetron 4 mg disintegrating 4 mg PO Q6H PRN Nausea 09/23/22 01/04/23 History tablet polyethylene glycol 3350 17 gram 17 g PO DAILY PRN Constipation 09/23/22 01/04/23 History oral powder packet (Miralax) duloxetine 20 mg capsule,delayed 20 mg PO DAILY #30 caps 12/23/22 01/04/23 Rx release cyclobenzaprine 10 mg tablet 10 mg PO BID PRN Spasms 01/04/23 01/04/23 History furosemide 40 mg tablet 40 mg PO BID 01/04/23 01/04/23 History insulin detemir U-100 100 unit/mL 55 unit SUBCUT BEDTIME 01/04/23 01/04/23 History (3 mL) subcutaneous pen (Levemir FlexPen) insulin detemir U-100 100 unit/mL 60 unit SUBCUT DAILY 01/04/23 01/04/23 History (3 mL) subcutaneous pen (Levemir FlexPen) liraglutide 0.6 mg/0.1 mL (18 mg/3 mg SUBCUT 01/04/23 History mL) subcutaneous pen injector (Victoza 3-Nicho) mirtazapine 15 mg tablet 7.5 mg PO BEDTIME 01/04/23 01/04/23 History potassium chloride 20 mEq 20 meq PO BID 01/04/23 01/04/23 History tablet,extended release(part/cryst) Allergies Allergy/AdvReac Type Severity Reaction Status Date / Time Sulfa (Sulfonamide Allergy Intermediate RASH Verified 01/04/23 12:04 Antibiotics) hydrocodone Allergy Unknown ITCH Verified 01/04/23 12:04 Review of Systems Review of Systems Narrative: All other systems reviewed with the patient and are negative unless otherwise stated. Exam Vital Signs (past 8 hours): - 01/04/23 07:40 01/04/23 07:40 01/04/23 07:45 Temperature Pulse Rate 109 H 109 H Respiratory Rate 35 H 39 H Blood Pressure 118/58 L Pulse Oximetry 97 98 Oxygen Delivery Method Oxygen Flow Rate Fraction of Inspired Oxygen 01/04/23 07:46 01/04/23 07:46 01/04/23 07:50 Temperature Pulse Rate 109 H Respiratory Rate 35 H Blood Pressure 146/63 H 123/80 Pulse Oximetry 98 Oxygen Delivery Method Oxygen Flow Rate Fraction of Inspired Oxygen 01/04/23 07:50 01/04/23 07:55 01/04/23 07:55 Temperature Pulse Rate 108 H 109 H Respiratory Rate 33 H 35 H Blood Pressure 121/60 Pulse Oximetry 98 Oxygen Delivery Method Oxygen Flow Rate Fraction of Inspired Oxygen 01/04/23 08:00 01/04/23 08:00 01/04/23 08:05 Temperature Pulse Rate 107 H 105 H Respiratory Rate 33 H 36 H Blood Pressure 116/60 Pulse Oximetry 96 98 Oxygen Delivery Method Oxygen Flow Rate Fraction of Inspired Oxygen 01/04/23 08:05 01/04/23 08:11 01/04/23 08:11 Temperature Pulse Rate 107 H Respiratory Rate 34 H Blood Pressure 117/64 94/53 L Pulse Oximetry 98 Oxygen Delivery Method BiPAP Oxygen Flow Rate Fraction of Inspired Oxygen 01/04/23 08:14 01/04/23 08:14 01/04/23 08:20 Temperature Pulse Rate 105 H 106 H Respiratory Rate 31 H 29 H Blood Pressure 105/64 Pulse Oximetry 98 99 Oxygen Delivery Method Oxygen Flow Rate Fraction of Inspired Oxygen 01/04/23 08:20 01/04/23 08:22 01/04/23 08:22 Temperature Pulse Rate 106 H Respiratory Rate 31 H Blood Pressure 90/48 L 102/65 Pulse Oximetry 99 Oxygen Delivery Method Oxygen Flow Rate Fraction of Inspired Oxygen 01/04/23 08:30 01/04/23 08:30 01/04/23 08:40 Temperature Pulse Rate 106 H 106 H Respiratory Rate 13 17 Blood Pressure 104/62 Pulse Oximetry 99 99 Oxygen Delivery Method Oxygen Flow Rate Fraction of Inspired Oxygen 01/04/23 08:40 01/04/23 08:51 01/04/23 08:51 Temperature Pulse Rate 105 H Respiratory Rate 32 H Blood Pressure 102/52 L 107/57 L Pulse Oximetry 100 Oxygen Delivery Method Oxygen Flow Rate Fraction of Inspired Oxygen 01/04/23 09:00 01/04/23 09:00 01/04/23 09:10 Temperature Pulse Rate 102 H Respiratory Rate 30 H Blood Pressure 94/55 L 110/62 Pulse Oximetry 99 Oxygen Delivery Method Oxygen Flow Rate Fraction of Inspired Oxygen 01/04/23 09:10 01/04/23 09:20 01/04/23 09:20 Temperature Pulse Rate 103 H 101 H Respiratory Rate 15 27 H Blood Pressure 106/62 Pulse Oximetry 98 99 Oxygen Delivery Method Oxygen Flow Rate Fraction of Inspired Oxygen 01/04/23 09:30 01/04/23 09:30 01/04/23 09:40 Temperature Pulse Rate 101 H 101 H Respiratory Rate 23 29 H Blood Pressure 112/67 Pulse Oximetry 99 100 Oxygen Delivery Method Oxygen Flow Rate Fraction of Inspired Oxygen 01/04/23 09:40 01/04/23 09:50 01/04/23 09:50 Temperature Pulse Rate 100 H Respiratory Rate 24 Blood Pressure 113/67 117/68 Pulse Oximetry 99 Oxygen Delivery Method BiPAP Oxygen Flow Rate Fraction of Inspired Oxygen 01/04/23 10:00 01/04/23 10:00 01/04/23 10:10 Temperature 96.6 F L 99.9 F H Pulse Rate 101 H 99 H Respiratory Rate 23 30 H Blood Pressure 116/65 Pulse Oximetry 99 98 Oxygen Delivery Method Oxygen Flow Rate Fraction of Inspired Oxygen 01/04/23 10:10 01/04/23 10:05 01/04/23 10:20 Temperature 100.8 F H Pulse Rate 100 H Respiratory Rate 28 H Blood Pressure 113/66 Pulse Oximetry 98 Oxygen Delivery Method Oxygen Flow Rate Fraction of Inspired Oxygen 40 01/04/23 10:20 01/04/23 10:30 01/04/23 10:30 Temperature 100.9 F H Pulse Rate 99 H Respiratory Rate 31 H Blood Pressure 116/67 113/66 Pulse Oximetry 98 Oxygen Delivery Method Oxygen Flow Rate Fraction of Inspired Oxygen 01/04/23 10:40 01/04/23 10:40 01/04/23 10:50 Temperature 101.1 F H 101.1 F H Pulse Rate 100 H 100 H Respiratory Rate 28 H 31 H Blood Pressure 117/68 Pulse Oximetry 98 99 Oxygen Delivery Method Oxygen Flow Rate Fraction of Inspired Oxygen 01/04/23 10:50 01/04/23 11:00 01/04/23 11:00 Temperature 101.1 F H Pulse Rate 98 H Respiratory Rate 24 Blood Pressure 118/73 115/64 Pulse Oximetry 98 Oxygen Delivery Method BiPAP Oxygen Flow Rate Fraction of Inspired Oxygen 01/04/23 11:10 01/04/23 11:10 01/04/23 11:20 Temperature 101.1 F H 101.1 F H Pulse Rate 98 H 100 H Respiratory Rate 26 H 31 H Blood Pressure 117/73 Pulse Oximetry 99 99 Oxygen Delivery Method Oximask Oxygen Flow Rate 6 Fraction of Inspired Oxygen 01/04/23 11:20 01/04/23 11:30 01/04/23 11:30 Temperature 100.9 F H Pulse Rate 98 H Respiratory Rate 31 H Blood Pressure 119/72 113/59 L Pulse Oximetry 99 Oxygen Delivery Method Oxygen Flow Rate Fraction of Inspired Oxygen 01/04/23 11:40 01/04/23 11:40 01/04/23 11:48 Temperature 100.9 F H Pulse Rate 99 H Respiratory Rate 34 H Blood Pressure 119/63 111/59 L Pulse Oximetry 99 Oxygen Delivery Method Oxygen Flow Rate Fraction of Inspired Oxygen 01/04/23 11:48 01/04/23 11:54 01/04/23 11:54 Temperature 100.8 F H 100.6 F H Pulse Rate 100 H 100 H Respiratory Rate 35 H 44 H Blood Pressure 117/56 L Pulse Oximetry 96 Oxygen Delivery Method Oxygen Flow Rate Fraction of Inspired Oxygen 01/04/23 12:00 01/04/23 12:00 01/04/23 12:06 Temperature 100.8 F H 100.6 F H Pulse Rate 100 H 100 H Respiratory Rate 30 H 30 H Blood Pressure 123/60 Pulse Oximetry 98 100 Oxygen Delivery Method Oxygen Flow Rate Fraction of Inspired Oxygen 01/04/23 12:06 01/04/23 12:10 01/04/23 12:10 Temperature 100.6 F H Pulse Rate 98 H Respiratory Rate 26 H Blood Pressure 114/56 L 114/55 L Pulse Oximetry 100 Oxygen Delivery Method BiPAP Oxygen Flow Rate Fraction of Inspired Oxygen 01/04/23 12:20 01/04/23 12:20 01/04/23 12:30 Temperature 100.4 F H Pulse Rate 97 H Respiratory Rate 28 H Blood Pressure 112/58 L 109/55 L Pulse Oximetry 99 Oxygen Delivery Method BiPAP Oxygen Flow Rate Fraction of Inspired Oxygen 01/04/23 12:30 01/04/23 12:15 01/04/23 12:40 Temperature 100.4 F H 100.4 F H Pulse Rate 98 H 96 H Respiratory Rate 27 H 28 H Blood Pressure Pulse Oximetry 99 99 Oxygen Delivery Method BiPAP Oxygen Flow Rate Fraction of Inspired Oxygen 35 01/04/23 12:40 01/04/23 12:50 01/04/23 12:50 Temperature 100.4 F H Pulse Rate 97 H Respiratory Rate 29 H Blood Pressure 100/58 L 106/58 L Pulse Oximetry 99 Oxygen Delivery Method Oxygen Flow Rate Fraction of Inspired Oxygen 01/04/23 13:00 01/04/23 13:00 01/04/23 13:10 Temperature 100.4 F H 100.4 F H Pulse Rate 97 H 97 H Respiratory Rate 29 H 32 H Blood Pressure 112/59 L Pulse Oximetry 98 98 Oxygen Delivery Method Oxygen Flow Rate Fraction of Inspired Oxygen 01/04/23 13:10 01/04/23 13:20 01/04/23 13:20 Temperature 100.4 F H Pulse Rate 97 H Respiratory Rate 29 H Blood Pressure 108/60 110/59 L Pulse Oximetry 100 Oxygen Delivery Method Oxygen Flow Rate Fraction of Inspired Oxygen 01/04/23 13:30 01/04/23 13:59 01/04/23 13:59 Temperature 100.6 F H 101.1 F H Pulse Rate 98 H 100 H Respiratory Rate 31 H 34 H Blood Pressure 117/64 Pulse Oximetry 100 98 Oxygen Delivery Method BiPAP Oxygen Flow Rate Fraction of Inspired Oxygen 01/04/23 14:00 01/04/23 14:00 01/04/23 14:20 Temperature 101.1 F H 101.7 F H Pulse Rate 100 H 101 H Respiratory Rate 34 H 39 H Blood Pressure 120/67 Pulse Oximetry 100 97 Oxygen Delivery Method Oxygen Flow Rate Fraction of Inspired Oxygen 01/04/23 14:20 01/04/23 14:30 01/04/23 14:40 Temperature 101.8 F H Pulse Rate 102 H Respiratory Rate 38 H Blood Pressure 119/61 122/64 Pulse Oximetry 98 Oxygen Delivery Method Oxygen Flow Rate Fraction of Inspired Oxygen 01/04/23 14:40 Temperature 102.0 F H Pulse Rate 103 H Respiratory Rate 39 H Blood Pressure Pulse Oximetry 98 Oxygen Delivery Method BiPAP Oxygen Flow Rate Fraction of Inspired Oxygen Fraction of Inspired Oxygen 35 Oxygen Delivery Method BiPAP Oxygen Flow Rate 6 Narrative Exam Narrative: Gen: alert, but lethargic and on BiPAP. Difficult to understand, falls asleep easily. Lungs: right lower crackles minimal.? Otherwise adequate air entry throughout the lung welsh. CV: RRR no m/r/g. Pulm: difficult to appreciate sounds currently while on BIPAP Ext: trace edema LEs, b/l LE wrapped Neuro: no focal deficits, moves all extremities. Objective ECG Impression: sinus tachycardia with no ST or T wave changes. Labs 01/04/23 18:00 01/04/23 07:00 Labs: Laboratory Results - last 24 hr 01/04/23 01/04/23 01/04/23 07:00 07:00 07:00 WBC 51.6 H* RBC 4.58 Hgb 9.6 L Hct 31.2 L MCV 68.1 L MCH 20.9 L MCHC 30.7 RDW 19.5 H Plt Count 425 H Neut % (Auto) Not Reportable Lymph % (Auto) Not Reportable [place] % (Auto) Not Reportable Eos % (Auto) Not Reportable Baso % (Auto) Not Reportable Lymph # (Auto) Not Reportable [place] # (Auto) Not Reportable Baso # (Auto) Not Reportable Total Counted 100 Seg Neutrophils % 67.0 Band Neutrophils % 29.0 H Atypical Lymphs % 2.0 H Monocytes % (Manual) 2.0 Neutrophils # (Manual) 14988 H Toxic Granulation Present H Toxic Vacuolation Present H RBC Morphology See below Hypochromasia 1+ H Anisocytosis 2+ H Microcytosis 2+ H Stomatocytes 1+ H PT 15.7 H INR 1.4 H APTT 32 ABG pH ABG pCO2 ABG pO2 ABG HCO3 ABG Total CO2 ABG O2 Saturation ABG Base Excess FiO2 Sodium 128 L Potassium 5.0 Chloride 92 L Carbon Dioxide 28 BUN 18 H Creatinine 0.57 Estimated GFR > 60 BUN/Creatinine Ratio 31.6 H Glucose 261 H Lactate Calcium 9.2 Magnesium 1.3 L Total Bilirubin 0.7 AST 43 H ALT 37 H Alkaline Phosphatase 123 Total Creatine Kinase 53 Troponin I 0.092 H NT-Pro-B Natriuret Pep 8580 H Total Protein 7.4 Albumin 3.6 Globulin 3.8 Albumin/Globulin Ratio 0.9 L Lipase 12 L Procalcitonin Urine Color Urine Appearance Urine pH Ur Specific [place] Urine Protein Urine Glucose (UA) Urine Ketones Urine Occult Blood Urine Nitrate Urine Bilirubin Urine Urobilinogen Ur Leukocyte Esterase Urine RBC Urine WBC Ur Squamous Epith Cells Urine Bacteria Ur Culture Indicated? Chlamy pneumoniae PCR Adenovirus (PCR) B. pertussis DNA (PCR) B.parapertussis DNA PCR Coronavirus OC43 (PCR) Coronavirus HKU1 (PCR) Coronavirus 229E (PCR) SARS-CoV-2 (PCR) Coronavirus NL63 (PCR) Human Metapneumovir PCR Influenza Type A (PCR) Influenza Type B (PCR) M. pneumoniae (PCR) Parainfluenza 1 (PCR) Parainfluenza 2 (PCR) Parainfluenza 3 (PCR) Parainfluenza 4 (PCR) RSV (PCR) Entero/Rhino (PCR) 01/04/23 01/04/23 01/04/23 07:00 07:00 07:28 WBC RBC Hgb Hct MCV MCH MCHC RDW Plt Count Neut % (Auto) Lymph % (Auto) [place] % (Auto) Eos % (Auto) Baso % (Auto) Lymph # (Auto) [place] # (Auto) Baso # (Auto) Total Counted Seg Neutrophils % Band Neutrophils % Atypical Lymphs % Monocytes % (Manual) Neutrophils # (Manual) Toxic Granulation Toxic Vacuolation RBC Morphology Hypochromasia Anisocytosis Microcytosis Stomatocytes PT INR APTT ABG pH 7.42 ABG pCO2 42.3 ABG pO2 197 H ABG HCO3 27 ABG Total CO2 29 H ABG O2 Saturation 100 ABG Base Excess 3.0 FiO2 60 Sodium Potassium Chloride Carbon Dioxide BUN Creatinine Estimated GFR BUN/Creatinine Ratio Glucose Lactate 4.4 H* Calcium Magnesium Total Bilirubin AST ALT Alkaline Phosphatase Total Creatine Kinase Troponin I NT-Pro-B Natriuret Pep Total Protein Albumin Globulin Albumin/Globulin Ratio Lipase Procalcitonin Urine Color Urine Appearance Urine pH Ur Specific [place] Urine Protein Urine Glucose (UA) Urine Ketones Urine Occult Blood Urine Nitrate Urine Bilirubin Urine Urobilinogen Ur Leukocyte Esterase Urine RBC Urine WBC Ur Squamous Epith Cells Urine Bacteria Ur Culture Indicated? Chlamy pneumoniae PCR Not detected Adenovirus (PCR) Not detected B. pertussis DNA (PCR) Not detected B.parapertussis DNA PCR Not detected Coronavirus OC43 (PCR) Not detected Coronavirus HKU1 (PCR) Not detected Coronavirus 229E (PCR) Not detected SARS-CoV-2 (PCR) Not detected Coronavirus NL63 (PCR) Not detected Human Metapneumovir PCR Not detected Influenza Type A (PCR) Not detected Influenza Type B (PCR) Not detected M. pneumoniae (PCR) Not detected Parainfluenza 1 (PCR) Not detected Parainfluenza 2 (PCR) Not detected Parainfluenza 3 (PCR) Not detected Parainfluenza 4 (PCR) Not detected RSV (PCR) Not detected Entero/Rhino (PCR) Not detected 01/04/23 01/04/23 01/04/23 09:12 09:12 10:03 WBC RBC Hgb Hct MCV MCH MCHC RDW Plt Count Neut % (Auto) Lymph % (Auto) [place] % (Auto) Eos % (Auto) Baso % (Auto) Lymph # (Auto) [place] # (Auto) Baso # (Auto) Total Counted Seg Neutrophils % Band Neutrophils % Atypical Lymphs % Monocytes % (Manual) Neutrophils # (Manual) Toxic Granulation Toxic Vacuolation RBC Morphology Hypochromasia Anisocytosis Microcytosis Stomatocytes PT INR APTT ABG pH ABG pCO2 ABG pO2 ABG HCO3 ABG Total CO2 ABG O2 Saturation ABG Base Excess FiO2 Sodium Potassium Chloride Carbon Dioxide BUN Creatinine Estimated GFR BUN/Creatinine Ratio Glucose Lactate 5.4 H* Calcium Magnesium Total Bilirubin AST ALT Alkaline Phosphatase Total Creatine Kinase 63 Troponin I 0.123 H* NT-Pro-B Natriuret Pep Total Protein Albumin Globulin Albumin/Globulin Ratio Lipase Procalcitonin 3.28 H Urine Color Yellow Urine Appearance Clear Urine pH 5.0 Ur Specific [place] 1.020 Urine Protein 1+ H Urine Glucose (UA) Negative Urine Ketones Negative Urine Occult Blood 1+ H Urine Nitrate Positive H Urine Bilirubin Negative Urine Urobilinogen 0.2 Ur Leukocyte Esterase Negative Urine RBC 1-5/hpf Urine WBC 1-5/hpf Ur Squamous Epith Cells 1-5 /hpf Urine Bacteria Many (>30) H Ur Culture Indicated? Specimen cultured Chlamy pneumoniae PCR Adenovirus (PCR) B. pertussis DNA (PCR) B.parapertussis DNA PCR Coronavirus OC43 (PCR) Coronavirus HKU1 (PCR) Coronavirus 229E (PCR) SARS-CoV-2 (PCR) Coronavirus NL63 (PCR) Human Metapneumovir PCR Influenza Type A (PCR) Influenza Type B (PCR) M. pneumoniae (PCR) Parainfluenza 1 (PCR) Parainfluenza 2 (PCR) Parainfluenza 3 (PCR) Parainfluenza 4 (PCR) RSV (PCR) Entero/Rhino (PCR) 01/04/23 01/04/23 01/04/23 11:15 12:10 13:00 WBC RBC Hgb Hct MCV MCH MCHC RDW Plt Count Neut % (Auto) Lymph % (Auto) [place] % (Auto) Eos % (Auto) Baso % (Auto) Lymph # (Auto) [place] # (Auto) Baso # (Auto) Total Counted Seg Neutrophils % Band Neutrophils % Atypical Lymphs % Monocytes % (Manual) Neutrophils # (Manual) Toxic Granulation Toxic Vacuolation RBC Morphology Hypochromasia Anisocytosis Microcytosis Stomatocytes PT INR APTT ABG pH ABG pCO2 ABG pO2 ABG HCO3 ABG Total CO2 ABG O2 Saturation ABG Base Excess FiO2 Sodium Potassium Chloride Carbon Dioxide BUN Creatinine Estimated GFR BUN/Creatinine Ratio Glucose Lactate 5.2 H* 4.1 H* Calcium Magnesium Total Bilirubin AST ALT Alkaline Phosphatase Total Creatine Kinase 63 Troponin I 0.142 H* NT-Pro-B Natriuret Pep Total Protein Albumin Globulin Albumin/Globulin Ratio Lipase Procalcitonin Urine Color Urine Appearance Urine pH Ur Specific [place] Urine Protein Urine Glucose (UA) Urine Ketones Urine Occult Blood Urine Nitrate Urine Bilirubin Urine Urobilinogen Ur Leukocyte Esterase Urine RBC Urine WBC Ur Squamous Epith Cells Urine Bacteria Ur Culture Indicated? Chlamy pneumoniae PCR Adenovirus (PCR) B. pertussis DNA (PCR) B.parapertussis DNA PCR Coronavirus OC43 (PCR) Coronavirus HKU1 (PCR) Coronavirus 229E (PCR) SARS-CoV-2 (PCR) Coronavirus NL63 (PCR) Human Metapneumovir PCR Influenza Type A (PCR) Influenza Type B (PCR) M. pneumoniae (PCR) Parainfluenza 1 (PCR) Parainfluenza 2 (PCR) Parainfluenza 3 (PCR) Parainfluenza 4 (PCR) RSV (PCR) Entero/Rhino (PCR) 01/04/23 01/04/23 13:23 14:30 WBC RBC Hgb Hct MCV MCH MCHC RDW Plt Count Neut % (Auto) Lymph % (Auto) [place] % (Auto) Eos % (Auto) Baso % (Auto) Lymph # (Auto) [place] # (Auto) Baso # (Auto) Total Counted Seg Neutrophils % Band Neutrophils % Atypical Lymphs % Monocytes % (Manual) Neutrophils # (Manual) Toxic Granulation Toxic Vacuolation RBC Morphology Hypochromasia Anisocytosis Microcytosis Stomatocytes PT INR APTT ABG pH 7.37 ABG pCO2 47.3 H ABG pO2 111 H ABG HCO3 27 ABG Total CO2 29 H ABG O2 Saturation 98 ABG Base Excess 2.0 FiO2 35 Sodium Potassium Chloride Carbon Dioxide BUN Creatinine Estimated GFR BUN/Creatinine Ratio Glucose Lactate 4.6 H* Calcium Magnesium Total Bilirubin AST ALT Alkaline Phosphatase Total Creatine Kinase Troponin I NT-Pro-B Natriuret Pep Total Protein Albumin Globulin Albumin/Globulin Ratio Lipase Procalcitonin Urine Color Urine Appearance Urine pH Ur Specific [place] Urine Protein Urine Glucose (UA) Urine Ketones Urine Occult Blood Urine Nitrate Urine Bilirubin Urine Urobilinogen Ur Leukocyte Esterase Urine RBC Urine WBC Ur Squamous Epith Cells Urine Bacteria Ur Culture Indicated? Chlamy pneumoniae PCR Adenovirus (PCR) B. pertussis DNA (PCR) B.parapertussis DNA PCR Coronavirus OC43 (PCR) Coronavirus HKU1 (PCR) Coronavirus 229E (PCR) SARS-CoV-2 (PCR) Coronavirus NL63 (PCR) Human Metapneumovir PCR Influenza Type A (PCR) Influenza Type B (PCR) M. pneumoniae (PCR) Parainfluenza 1 (PCR) Parainfluenza 2 (PCR) Parainfluenza 3 (PCR) Parainfluenza 4 (PCR) RSV (PCR) Entero/Rhino (PCR) Assessment & Plan Assessment & Plan narrative: 1. Sepsis secondary to possible bacterial pneumonia, acute cystitis with acute respiratory failure with hypoxia and hypotension - possible sources include pulmonary and urinary at this time. MRSA swab positive. - marked leukocytosis with WBC 50 on admission. Also with new respiratory failure, metabolic encephalopathy, and hypotension. - hypotension developed after diuretic, was given fluids back. Will hold on fur ther fluids at this time as likely is volume overloaded. But given complex picture will not diurese at this time either. But will need reassessment as time goes along. - trend lactate until normal - for now continue ceftriaxone and vancomycin. Pending culture data. 2. acute respiratory failure with hypoxia - etiologies include sepsis, diastolic heart failure exacerbation, or COPD exacerbation. - continue management as in #1 above, will hold on further diruetic for now, but can resume 40 mg IV daily in the morning - start steroids with methylprednisolone for possible COPD exacerbation. - RT eval and treat - repeat ABG in the next few hours, leave on BiPAP overnight ideally and work to nasal cannula tomorrow as more evaluation comes back. 3. elevated troponin / myocardial injury - TTE with normal EF, no wall motion abnormalities, no chest pain - trend troponin until downtrending. - likely secondary to demand in setting of sepsis. 4. Advanced care planning - I spent 16 minutes involved in the advanced care planning of this patient. Including discussion of intracacies. She was previously DNR/DNI based on POLST form. However, when discussing current situation, if thought to be reversible etiology she would want to get better including with intubation if necessary. S he does not wish to be a vegetable based on discussion with patient and family. Changed her code status to reflect this to full for now. # history of CVA ?- continue plavix, statin # chronic microcytic anemia, stable, present on admission - stable from prior admission # chronic leukocytosis with acute rise -per notes follows with hematology and source of leukocytosis unclear as patient refused bone marrow biopsy # DM2 -continue home lantus but at 30 BID for now, increase as tolerated or needed based on blood sugars. -high dose SSI # PVD -continue plavix, statin # HTN -hold home losartan for now. # chronic LE diabetic foot ulcers -continue wound care. # insomnia, depression -continue celexa hold remeron and ambien while on bipap Dispo: Admitted ICU, stay is expected to exceed two midnights. Consider tele- ocean import representative consultation depending on improvement. I spent 45 minutes involved in the critical care management of this patient which Excludes other procedures, advanced care time discussed above. Code: FULL, surrogate is patient's daughter Quality VTE Deep Vein Thrombosis/Pulmonary Embolism Present on Admission: No
[2023-01-04] MEDS: methylPREDNISolone 125 MG/2 ML VIAL IV (15:45)
--- NOTE | 2023-01-04 16:51 | DI.RAD.S_ITS ---
PROCEDURE: XR CHEST FOR PICC 1V INDICATIONS: line placement COMPARISON: [facility], CR, XR CHEST 1V, 01/04/2023, 7:43. FINDINGS: PICC was placed by the intravenous therapy team from the left side. Fluoroscopic spot film demonstrates the tip of PICC projecting to the area of upper SVC. IMPRESSION: Tip of PICC projects to the area of upper SVC. Dictated by: Reed Osuna M.D. on 01/04/2023 at 17:46 Approved by: Reed Osuna M.D. on 01/04/2023 at 17:46
--- NOTE | 2023-01-04 17:14 | PC.NURSE ---
Admit: Pt arrived from ED via stretcher at approximately 1445, BiPAP in place. Slide board utilized for transfer to ICU bed. Pt tachypneic RR 35-45, tachycardic HR 110-120, core temp 102.3, provider at bedside. Pt opens eyes on verbal command, able to verbalize name and date. Adult daughter Kathy at bedside. Pt removed R PIV. New IV started on RFA. Pt continues on BiPAP, RR 25-35. PICC RN placed L PICC. Pt diaphoretic. Care ongoing.
[2023-01-04 17:50] LABS: MRSA (Nasal) PCR DETECTED (Not Detect)
[2023-01-04 18:31] LABS: Hematocrit 30.9 % (36-46); Hemoglobin 9.4 g/dL (12.0-16.0); Mean Corpuscular HGB Conc 30.4 % (30-36); Mean Corpuscular Hemoglobin 20.8 PG (26-34); Mean Corpuscular Volume 68.3 fL (80-100); Platelet Count 384 X10^3/uL (150-400); Red Blood Cell Count 4.52 X10^6/uL (4.0-5.2); Red Cell Distribution Width 19.5 % (11.6-14.8)
[2023-01-04 18:36] LABS: Add Manual Diff / Slide Review YES; Lactate (Lactic Acid) 3.4 mmol/L (0.7-2.1)
[2023-01-04 18:37] LABS: White Blood Cell Count 44.9 X10^3/uL (4.5-11.0)
[2023-01-04 18:47] LABS: Anisocytosis 1+; Microcytosis 1+; Neutrophils Absolute Manual 44451 /uL (3000-5900); Total Cells Counted 100
[2023-01-04 18:48] LABS: Stomatocytes 1+
[2023-01-04 19:06] LABS: PCO2 ABG 44.6 mmHg (35-45)
[2023-01-04 19:07] LABS: Fractionated Inspired Oxygen 40; HCO3 ABG 27 mmol/L (23-27); Oxygen Saturation ABG 98 % (95-100); PO2 ABG 98 mmHg (80-100); TCO2 ABG 29 mmol/L (23-27)
[2023-01-04 19:11] LABS: Troponin I 0.267 ng/mL (0.01-0.034)
[2023-01-04 20:18] LABS: Reflexed Lactate in 2 Hours Y
[2023-01-04 21:16] LABS: Acinetobacter calcoa-baumannii Not Detected (Not Detect); Bacteroides fragilis Not Detected (Not Detect); Candida albicans Not Detected (Not Detect); Candida auris Not Detected (Not Detect); Candida glabrata Not Detected (Not Detect); Candida krusei Not Detected (Not Detect); Candida parapsilosis Not Detected (Not Detect); Candida tropicalis Not Detected (Not Detect); Cryptococcus neoformans/gatti Not Detected (Not Detect); Enterobacter cloacae complex Not Detected (Not Detect); Enterobacterales Not Detected (Not Detect); Enterococcus faecalis Not Detected (Not Detect); Enterococcus faecium Not Detected (Not Detect); Haemophilus influenzae Not Detected (Not Detect); Klebsiella aerogenes Not Detected (Not Detect); Listeria monocytogenes Not Detected (Not Detect); Neisseria meningitidis Not Detected (Not Detect); Proteus species Not Detected (Not Detect); Pseudomonas aeruginosa Not Detected (Not Detect); Salmonella species Not Detected (Not Detect); Serratia marcescens Not Detected (Not Detect); Staphylococcus epidermidis Not Detected (Not Detect); Staphylococcus lugdunensis Not Detected (Not Detect); Staphylococcus species DETECTED (Not Detect); Stenotrophomonas maltophilia Not Detected (Not Detect); Streptococcus agalactiae (Gr B Not Detected (Not Detect); Streptococcus pneumonia Not Detected (Not Detect); Streptococcus pyogenes (Gr A) Not Detected (Not Detect); Streptococcus species Not Detected (Not Detect); mecA/C Resistance Not Detected (Not Detect)
[2023-01-04] MEDS: VANCOMYCIN 2,000 MG/400 ML PIGGYBACK 200 MG IV (21:47)
[2023-01-04] MEDS: INSULIN LISPRO 100 UNIT/ML 3ML VIAL SUBCUT (21:57)
[2023-01-04] MEDS: INSULIN GLARGINE 100 UNIT/ML 3ML PEN 30 UNIT SUBCUT (21:57)
[2023-01-04 22:11] LABS: Lactate 2HR (Lactic Acid Rflx) 2.5 mmol/L (0.7-2.1)
[2023-01-05] VITALS (46 sets, daily range): BP systolic 106–175; BP diastolic 58–93; PULSE 93–123; RESP 12–36; TEMP 31–38.3; O2SAT 78–99
[2023-01-05] MEDS: LORazepam 2 MG/ML INJ 0.5 MG IV ×4 (00:36→21:56)
--- NOTE | 2023-01-05 00:45 | PC.NURSE ---
0040--pt restless; repeatedly pulling off bipap; resp rate 30s; Dr. Loya notified and orders rec'd; lorazepam 0.5mg iv given
[2023-01-05 06:09] LABS: Hematocrit 30.5 % (36-46); Hemoglobin 9.2 g/dL (12.0-16.0); Mean Corpuscular HGB Conc 30.1 % (30-36); Mean Corpuscular Hemoglobin 20.8 PG (26-34); Mean Corpuscular Volume 69.3 fL (80-100); Platelet Count 401 X10^3/uL (150-400); Red Cell Distribution Width 19.9 % (11.6-14.8)
[2023-01-05 06:12] LABS: Add Manual Diff / Slide Review YES
[2023-01-05 06:14] LABS: White Blood Cell Count 37.6 X10^3/uL (4.5-11.0)
[2023-01-05 06:25] LABS: Alanine Aminotransferase 36 IU/L (<35); Albumin 3.5 g/dL (3.5-5.0); Albumin Globulin Ratio 0.9 (1.0-2.8); Alkaline Phosphatase 124 U/L (38-126); Aspartate Aminotransferase 33 IU/L (14-36); BUN Creatinine Ratio 46.8 (6-22); Bilirubin Total 0.5 mg/dL (0.2-1.3); Blood Urea Nitrogen 29 mg/dL (7-17); Calcium 9.3 mg/dL (8.4-10.2); Carbon Dioxide 31 mmol/L (22-32); Chloride 95 mmol/L (98-107); Estimated Glomerular Filt Rate > 60 mL/min (>60); Globulin 3.9 g/dL (1.7-4.1); Glucose 338 mg/dL (80-110); HEMOLYSIS < 15 (0-50); Potassium 4.3 mmol/L (3.4-5.1); Sodium 133 mmol/L (137-145); Total Protein 7.4 g/dL (6.3-8.2)
[2023-01-05 06:41] LABS: Anisocytosis 2+; Neutrophils Absolute Manual 35720 /uL (3000-5900); Total Cells Counted 100
[2023-01-05 06:42] LABS: Microcytosis 2+
[2023-01-05 06:44] LABS: Stomatocytes 1+
[2023-01-05 06:46] LABS: Troponin I 0.503 ng/mL (0.01-0.034)
--- NOTE | 2023-01-05 06:58 | PC.NURSE ---
shift note--Pt was markedly restless the first part of the shift; order obtained for lorazepam 0.5mg iv prn, and she has had 2 doses to good effect; she remains on bipap and her o2 sats maintain in the low to mid 90s when she leaves the bipap on
[2023-01-05] MEDS: INSULIN LISPRO 100 UNIT/ML 3ML VIAL SUBCUT ×4 (08:54→20:30)
[2023-01-05] MEDS: cefTRIAXone 2,000 MG in SODIUM CHLORIDE 0.9% 100 ML 200 MG IV (08:56)
[2023-01-05] MEDS: INSULIN GLARGINE 100 UNIT/ML 3ML PEN 35 UNIT SUBCUT ×2 (08:57→20:29)
[2023-01-05] MEDS: ENOXAPARIN 40 MG/0.4 ML SYRINGE SUBCUT ×2 (08:57→20:29)
[2023-01-05] MEDS: FUROSEMIDE 40 MG/4 ML VIAL IV (08:59)
[2023-01-05] MEDS: methylPREDNISolone 125 MG/2 ML VIAL 60 MG IV (09:01)
--- NOTE | 2023-01-05 11:34 | P.PN_ITS ---
Subjective Subjective Interval history: 63 F admitted with sepsis and acute respiratory failure. Remains on BiPAP today. Blood cultures positive, with likely staph aureus based on PCR. Continues to have fever, remains lethargic and confused but tolerating biPAP well still. WBC improving to the 30s today. Troponin continuing to creep up. Exam Vital Signs (past 8 hours): - 01/05/23 04:00 01/05/23 04:00 01/05/23 05:00 Temperature 100.6 F H 100.6 F H Pulse Rate 100 H 99 H Respiratory Rate 12 18 Blood Pressure 133/73 Pulse Oximetry 95 92 Oxygen Delivery Method Fraction of Inspired Oxygen 01/05/23 06:00 01/05/23 06:00 01/05/23 07:00 Temperature 100.8 F H 100.9 F H Pulse Rate 100 H 98 H Respiratory Rate 29 H 27 H Blood Pressure 148/76 H Pulse Oximetry 94 95 Oxygen Delivery Method Fraction of Inspired Oxygen 01/05/23 07:56 01/05/23 07:56 01/05/23 07:57 Temperature 100.6 F H Pulse Rate 99 H Respiratory Rate 28 H Blood Pressure 149/76 H 151/73 H 148/77 H Pulse Oximetry 95 Oxygen Delivery Method Fraction of Inspired Oxygen 01/05/23 07:57 01/05/23 07:30 01/05/23 07:58 Temperature 100.6 F H Pulse Rate 99 H Respiratory Rate 26 H Blood Pressure 148/78 H Pulse Oximetry 95 Oxygen Delivery Method Fraction of Inspired Oxygen 25 01/05/23 07:58 01/05/23 07:59 01/05/23 07:59 Temperature 100.6 F H 100.6 F H Pulse Rate 99 H 99 H Respiratory Rate 28 H 27 H Blood Pressure 150/78 H Pulse Oximetry 95 95 Oxygen Delivery Method Fraction of Inspired Oxygen 01/05/23 08:00 01/05/23 08:00 01/05/23 08:01 Temperature 100.6 F H Pulse Rate 98 H Respiratory Rate 28 H Blood Pressure 143/76 H 143/78 H Pulse Oximetry 95 Oxygen Delivery Method Fraction of Inspired Oxygen 01/05/23 08:01 01/05/23 09:51 01/05/23 07:00 Temperature 100.6 F H Pulse Rate 99 H Respiratory Rate 28 H Blood Pressure 151/80 H Pulse Oximetry 95 Oxygen Delivery Method BiPAP Fraction of Inspired Oxygen 25 01/05/23 09:00 01/05/23 09:00 01/05/23 10:00 Temperature 100.4 F H Pulse Rate 99 H Respiratory Rate 22 Blood Pressure 151/80 H 175/85 H Pulse Oximetry 95 Oxygen Delivery Method Fraction of Inspired Oxygen 01/05/23 10:00 01/05/23 10:20 01/05/23 10:20 Temperature 100.4 F H 100.4 F H Pulse Rate 106 H 102 H Respiratory Rate 31 H 29 H Blood Pressure 148/70 H Pulse Oximetry 94 93 Oxygen Delivery Method Fraction of Inspired Oxygen 01/05/23 10:21 01/05/23 10:21 01/05/23 10:22 Temperature 100.4 F H Pulse Rate 101 H Respiratory Rate 27 H Blood Pressure 136/71 139/77 Pulse Oximetry 93 Oxygen Delivery Method Fraction of Inspired Oxygen 01/05/23 10:22 01/05/23 10:23 01/05/23 10:23 Temperature 100.4 F H 100.4 F H Pulse Rate 102 H 104 H Respiratory Rate 29 H 30 H Blood Pressure 148/77 H Pulse Oximetry 94 96 Oxygen Delivery Method Fraction of Inspired Oxygen 01/05/23 10:24 01/05/23 10:24 01/05/23 11:00 Temperature 100.4 F H Pulse Rate 104 H Respiratory Rate 30 H Blood Pressure 147/79 H 146/82 H Pulse Oximetry 95 Oxygen Delivery Method Fraction of Inspired Oxygen 01/05/23 11:00 Temperature 100.6 F H Pulse Rate 103 H Respiratory Rate 29 H Blood Pressure Pulse Oximetry 95 Oxygen Delivery Method Fraction of Inspired Oxygen Fraction of Inspired Oxygen 25 Oxygen Delivery Method BiPAP Oxygen Flow Rate 6 Narrative Exam Narrative: Gen: alert, but lethargic and on BiPAP. Difficult to understand, falls asleep easily. Lungs: diminished breath sounds, poor effort. right lower crackles minimal.? Otherwise adequate air entry throughout the lung welsh. CV: RRR no m/r/g. Ext: trace edema LEs, L foot with purplish toes but no necrosis, induration, or erythema. R foot better color but also no evidence of active infection of chronic wounds. Neuro: no focal deficits, moves all extremities. Objective Labs 01/05/23 05:45 01/05/23 05:45 Labs: Laboratory Results - last 24 hr 01/04/23 01/04/23 01/04/23 07:00 11:15 12:10 WBC RBC Hgb Hct MCV MCH MCHC RDW Plt Count Neut % (Auto) Lymph % (Auto) Sanborn % (Auto) Eos % (Auto) Baso % (Auto) Lymph # (Auto) Sanborn # (Auto) Baso # (Auto) Total Counted Seg Neutrophils % Band Neutrophils % Lymphocytes % (Manual) Monocytes % (Manual) Neutrophils # (Manual) RBC Morphology Anisocytosis Microcytosis Stomatocytes ABG pH ABG pCO2 ABG pO2 ABG HCO3 ABG Total CO2 ABG O2 Saturation ABG Base Excess FiO2 Sodium Potassium Chloride Carbon Dioxide BUN Creatinine Estimated GFR BUN/Creatinine Ratio Glucose Lactate 5.2 H* Calcium Magnesium Total Bilirubin AST ALT Alkaline Phosphatase Total Creatine Kinase 63 Troponin I 0.142 H* Total Protein Albumin Globulin Albumin/Globulin Ratio Nasal Screen MRSA (PCR) A.calcoaceticus-baumannii cmplx PCR Not detected Bacteroides fragilis Not detected Trudy albicans (PCR) Not detected Trudy auris (PCR) Not detected C. glabrata (PCR) Not detected C. krusei (PCR) Not detected C. parapsilosis (PCR) Not detected C. tropicalis (PCR) Not detected C. neoform/gattii (PCR) Not detected Enterobacterales (PCR) Not detected E. cloacae complex PCR Not detected Enterococc faecalis PCR Not detected Enterococc faecium PCR Not detected E. coli (PCR) Not detected H. influenzae (PCR) Not detected Klebsiella aerogenes (PCR) Not detected Klebsiella oxytoca PCR Not detected Klebsiella pneumoniae Not detected List. monocytogenes PCR Not detected N. meningitidis (PCR) Not detected Proteus species (PCR) Not detected Salmonella spp. (PCR) Not detected Serratia marcescens PCR Not detected Staphylococcus sp PCR Detected H Staph aureus (PCR) Detected H mecA/C-Methicil Resis Gene Not detected Staph epidermidis (PCR) Not detected Staph lugdunensis PCR Not detected S. maltophilia (PCR) Not detected Streptococcus sp PCR Not detected Group A Strep (PCR) Not detected Strep agalactiae (PCR) Not detected Strep pneumoniae (PCR) Not detected P. aeruginosa (PCR) Not detected 01/04/23 01/04/23 01/04/23 13:00 13:23 14:30 WBC RBC Hgb Hct MCV MCH MCHC RDW Plt Count Neut % (Auto) Lymph % (Auto) Sanborn % (Auto) Eos % (Auto) Baso % (Auto) Lymph # (Auto) Sanborn # (Auto) Baso # (Auto) Total Counted Seg Neutrophils % Band Neutrophils % Lymphocytes % (Manual) Monocytes % (Manual) Neutrophils # (Manual) RBC Morphology Anisocytosis Microcytosis Stomatocytes ABG pH 7.37 ABG pCO2 47.3 H ABG pO2 111 H ABG HCO3 27 ABG Total CO2 29 H ABG O2 Saturation 98 ABG Base Excess 2.0 FiO2 35 Sodium Potassium Chloride Carbon Dioxide BUN Creatinine Estimated GFR BUN/Creatinine Ratio Glucose Lactate 4.1 H* 4.6 H* Calcium Magnesium Total Bilirubin AST ALT Alkaline Phosphatase Total Creatine Kinase Troponin I Total Protein Albumin Globulin Albumin/Globulin Ratio Nasal Screen MRSA (PCR) A.calcoaceticus-baumannii cmplx PCR Bacteroides fragilis Trudy albicans (PCR) Trudy auris (PCR) C. glabrata (PCR) C. krusei (PCR) C. parapsilosis (PCR) C. tropicalis (PCR) C. neoform/gattii (PCR) Enterobacterales (PCR) E. cloacae complex PCR Enterococc faecalis PCR Enterococc faecium PCR E. coli (PCR) H. influenzae (PCR) Klebsiella aerogenes (PCR) Klebsiella oxytoca PCR Klebsiella pneumoniae List. monocytogenes PCR N. meningitidis (PCR) Proteus species (PCR) Salmonella spp. (PCR) Serratia marcescens PCR Staphylococcus sp PCR Staph aureus (PCR) mecA/C-Methicil Resis Gene Staph epidermidis (PCR) Staph lugdunensis PCR S. maltophilia (PCR) Streptococcus sp PCR Group A Strep (PCR) Strep agalactiae (PCR) Strep pneumoniae (PCR) P. aeruginosa (PCR) 01/04/23 01/04/23 01/04/23 15:40 18:00 18:00 WBC 44.9 H* RBC 4.52 Hgb 9.4 L Hct 30.9 L MCV 68.3 L MCH 20.8 L MCHC 30.4 RDW 19.5 H Plt Count 384 Neut % (Auto) Not Reportable Lymph % (Auto) Not Reportable Sanborn % (Auto) Not Reportable Eos % (Auto) Not Reportable Baso % (Auto) Not Reportable Lymph # (Auto) Not Reportable Sanborn # (Auto) Not Reportable Baso # (Auto) Not Reportable Total Counted 100 Seg Neutrophils % 73.0 H Band Neutrophils % 26.0 H Lymphocytes % (Manual) Monocytes % (Manual) 1.0 L Neutrophils # (Manual) 87644 H RBC Morphology See below Anisocytosis 1+ H Microcytosis 1+ H Stomatocytes 1+ H ABG pH ABG pCO2 ABG pO2 ABG HCO3 ABG Total CO2 ABG O2 Saturation ABG Base Excess FiO2 Sodium Potassium Chloride Carbon Dioxide BUN Creatinine Estimated GFR BUN/Creatinine Ratio Glucose Lactate 3.4 H Calcium Magnesium Total Bilirubin AST ALT Alkaline Phosphatase Total Creatine Kinase Troponin I Total Protein Albumin Globulin Albumin/Globulin Ratio Nasal Screen MRSA (PCR) Detected H A.calcoaceticus-baumannii cmplx PCR Bacteroides fragilis Trudy albicans (PCR) Trudy auris (PCR) C. glabrata (PCR) C. krusei (PCR) C. parapsilosis (PCR) C. tropicalis (PCR) C. neoform/gattii (PCR) Enterobacterales (PCR) E. cloacae complex PCR Enterococc faecalis PCR Enterococc faecium PCR E. coli (PCR) H. influenzae (PCR) Klebsiella aerogenes (PCR) Klebsiella oxytoca PCR Klebsiella pneumoniae List. monocytogenes PCR N. meningitidis (PCR) Proteus species (PCR) Salmonella spp. (PCR) Serratia marcescens PCR Staphylococcus sp PCR Staph aureus (PCR) mecA/C-Methicil Resis Gene Staph epidermidis (PCR) Staph lugdunensis PCR S. maltophilia (PCR) Streptococcus sp PCR Group A Strep (PCR) Strep agalactiae (PCR) Strep pneumoniae (PCR) P. aeruginosa (PCR) 01/04/23 01/04/23 01/04/23 18:00 18:11 21:55 WBC RBC Hgb Hct MCV MCH MCHC RDW Plt Count Neut % (Auto) Lymph % (Auto) Sanborn % (Auto) Eos % (Auto) Baso % (Auto) Lymph # (Auto) Sanborn # (Auto) Baso # (Auto) Total Counted Seg Neutrophils % Band Neutrophils % Lymphocytes % (Manual) Monocytes % (Manual) Neutrophils # (Manual) RBC Morphology Anisocytosis Microcytosis Stomatocytes ABG pH 7.40 ABG pCO2 44.6 ABG pO2 98 ABG HCO3 27 ABG Total CO2 29 H ABG O2 Saturation 98 ABG Base Excess 3.0 FiO2 40 Sodium Potassium Chloride Carbon Dioxide BUN Creatinine Estimated GFR BUN/Creatinine Ratio Glucose Lactate 2.5 H Calcium Magnesium Total Bilirubin AST ALT Alkaline Phosphatase Total Creatine Kinase Troponin I 0.267 H* Total Protein Albumin Globulin Albumin/Globulin Ratio Nasal Screen MRSA (PCR) A.calcoaceticus-baumannii cmplx PCR Bacteroides fragilis Trudy albicans (PCR) Trudy auris (PCR) C. glabrata (PCR) C. krusei (PCR) C. parapsilosis (PCR) C. tropicalis (PCR) C. neoform/gattii (PCR) Enterobacterales (PCR) E. cloacae complex PCR Enterococc faecalis PCR Enterococc faecium PCR E. coli (PCR) H. influenzae (PCR) Klebsiella aerogenes (PCR) Klebsiella oxytoca PCR Klebsiella pneumoniae List. monocytogenes PCR N. meningitidis (PCR) Proteus species (PCR) Salmonella spp. (PCR) Serratia marcescens PCR Staphylococcus sp PCR Staph aureus (PCR) mecA/C-Methicil Resis Gene Staph epidermidis (PCR) Staph lugdunensis PCR S. maltophilia (PCR) Streptococcus sp PCR Group A Strep (PCR) Strep agalactiae (PCR) Strep pneumoniae (PCR) P. aeruginosa (PCR) 01/05/23 01/05/23 01/05/23 05:45 05:45 05:45 WBC 37.6 H* RBC 4.40 Hgb 9.2 L Hct 30.5 L MCV 69.3 L MCH 20.8 L MCHC 30.1 RDW 19.9 H Plt Count 401 H Neut % (Auto) Not Reportable Lymph % (Auto) Not Reportable Sanborn % (Auto) Not Reportable Eos % (Auto) Not Reportable Baso % (Auto) Not Reportable Lymph # (Auto) Not Reportable Sanborn # (Auto) Not Reportable Baso # (Auto) Not Reportable Total Counted 100 Seg Neutrophils % 77.0 H Band Neutrophils % 18.0 H Lymphocytes % (Manual) 3.0 L Monocytes % (Manual) 2.0 Neutrophils # (Manual) 67792 H RBC Morphology See below Anisocytosis 2+ H Microcytosis 2+ H Stomatocytes 1+ H ABG pH ABG pCO2 ABG pO2 ABG HCO3 ABG Total CO2 ABG O2 Saturation ABG Base Excess FiO2 Sodium 133 L Potassium 4.3 Chloride 95 L Carbon Dioxide 31 BUN 29 H Creatinine 0.62 Estimated GFR > 60 BUN/Creatinine Ratio 46.8 H Glucose 338 H Lactate Calcium 9.3 Magnesium 2.0 Total Bilirubin 0.5 AST 33 ALT 36 H Alkaline Phosphatase 124 Total Creatine Kinase Troponin I 0.503 H* Total Protein 7.4 Albumin 3.5 Globulin 3.9 Albumin/Globulin Ratio 0.9 L Nasal Screen MRSA (PCR) A.calcoaceticus-baumannii cmplx PCR Bacteroides fragilis Trudy albicans (PCR) Trudy auris (PCR) C. glabrata (PCR) C. krusei (PCR) C. parapsilosis (PCR) C. tropicalis (PCR) C. neoform/gattii (PCR) Enterobacterales (PCR) E. cloacae complex PCR Enterococc faecalis PCR Enterococc faecium PCR E. coli (PCR) H. influenzae (PCR) Klebsiella aerogenes (PCR) Klebsiella oxytoca PCR Klebsiella pneumoniae List. monocytogenes PCR N. meningitidis (PCR) Proteus species (PCR) Salmonella spp. (PCR) Serratia marcescens PCR Staphylococcus sp PCR Staph aureus (PCR) mecA/C-Methicil Resis Gene Staph epidermidis (PCR) Staph lugdunensis PCR S. maltophilia (PCR) Streptococcus sp PCR Group A Strep (PCR) Strep agalactiae (PCR) Strep pneumoniae (PCR) P. aeruginosa (PCR) PFSH Medical History Abnormal LFTs Acute hyperkalemia CHF (congestive heart failure) Diabetes Leukocytosis (leucocytosis) Pneumonia PVD (peripheral vascular disease) Respiratory failure, acute Right hemiparesis Scalp laceration TIA (transient ischemic attack) Surgical History H/O angioplasty History of cholecystectomy Social History household members: caregiver Smoking Status: Current every day smoker alcohol intake: never Assessment & Plan Assessment & Plan narrative: 1. Sepsis secondary to possible bacterial pneumonia, acute cystitis with acute respiratory failure with hypoxia and hypotension - MRSA swab positive. Blood cultures from admission positive in 4/4 bottles w ith staph aureus based on PCR testing. Follow up final cultures. Have ordered repeat cultures for this morning. Continue to check until blood cultures negative. - marked leukocytosis with WBC 50 on admission. Also with new respiratory failure, metabolic encephalopathy, and hypotension. Now improving with ceftriaxone and vancomycin therapies. - hypotension developed after diuretic, was given fluids back. Will hold on further fluids at this time as likely is volume overloaded. But given complex picture will not diurese at this time either. But will need reassessment as time goes along. - trended lactate until normal at 2.5 from 5 on admission. - for now continue ceftriaxone and vancomycin. Pending culture data. - consider skin infection leading to bacteremia, though her foot wounds do not appear actively infected and is less likely the source at this time. 2. acute respiratory failure with hypoxia - etiologies include sepsis, diastolic heart failure exacerbation, or COPD exacerbation. - continue management as in #1 above, will hold on further diruetic for now, but haved resume 40 mg IV daily in the morning to avoid worsening hypervolemia. - start steroids with methylprednisolone for possible COPD exacerbation. - RT eval and treat - Continue to try and titrate off of BiPAP, trial nasal cannula. 3. elevated troponin / myocardial injury - TTE with normal EF, no wall motion abnormalities, no chest pain - trend troponin until downtrending. Currently at 0.5. - likely secondary to demand in setting of sepsis. 4. Advanced care planning - She was previously DNR/DNI based on POLST form. However, when discussing current situation, if thought to be reversible etiology she would want to get better including with intubation if necessary. She does not wish to be a vegetable based on discussion with patient and family. Changed her code status to reflect this to full for now. # history of CVA ?- continue plavix, statin # chronic microcytic anemia, stable, present on admission - stable from prior admission # chronic leukocytosis with acute rise -per notes follows with hematology and source of leukocytosis unclear as patient refused bone marrow biopsy # DM2 -continue home lantus but at 30 BID for now, increase as tolerated or needed based on blood sugars. -high dose SSI # PVD -continue plavix, statin # HTN -hold home losartan for now. # chronic LE diabetic foot ulcers -continue wound care. # insomnia, depression -continue celexa hold remeron and ambien while on bipap Dispo: Admitted ICU, stay is expected to exceed two midnights. Consider tele- oracle software engineer consultation depending on improvement. I spent 35 minutes involved in the critical care management of this patient which Excludes other procedures, advanced care time discussed above. Code: FULL, surrogate is patient's daughter Quality VTE Deep Vein Thrombosis/Pulmonary Embolism Present on Admission: No
[2023-01-05] MEDS: VANCOMYCIN 1,750 MG in SODIUM CHLORIDE 0.9% 500 ML 250 MG IV (12:08)
--- NOTE | 2023-01-05 12:52 | PC.NURSE ---
Addendum entered by Marzena Olmedo R.N. 01/05/23 18:50: Pt repositioned frequently throughout day, resting comfortably now, VSS. Addendum entered by Marzena Olmedo R.N. 01/05/23 14:36: Pt weaned from BiPAP, now on 3L NC. SPO2 mid 90s. Family reported pt having rash during vancomycin infusion, RN assessed and informed provider. Benadryl administered and Vanco infusion slowed per provider verbal order. Addendum entered by Marzena Olmedo R.N. 01/05/23 13:09: Critical Troponin 0.485 - reported to provider, trending down from previous value. Original Note: In am, spoke with provider regarding trending troponin levels. Provider aware. During med pass, pt unable to remain awake long enough and swallow pills safely. Informed provider of pills not administered. Pt has [facility]agan for ICU diuretic administration and accurate I/O. Fagan care and CHG bath completed. RN took off BiPAP several times to assess pt's orientation, LOC and ability to follow commands. Pt oriented to self but unable to answer other questions. Pt denied pain. VS stable, RN and RT continuing to monitor.
[2023-01-05 13:06] LABS: Troponin I 0.485 ng/mL (0.01-0.034)
--- NOTE | 2023-01-05 14:07 | CM.DANOTE ---
DCP Brief Assessment Note: Patient is a 63yo F here for acute respiratory distress, pneumonia, and CHF. PCP [facility] ([facility]?) Payer Medicare and Medicaid CHEMIST INSTRUMENTATION reviewed EMR. Patient is from [facility]. From hospitalist, patient will likely need two weeks of antibiotics upon d/c. waiting to see what grows in Pt's cultures/urine to determine specific antibiotic needs. From hospitalist, patient will likely be here a few days. CHEMIST INSTRUMENTATION unable to meet with patient or family today due to patient's BIPAP/O2 needs at this time. Information is derived from previous assessment from September of 2022. Patient at baseline need sit to stand hoier for transfers. Patient has a motorized scooter for mobility. CHEMIST INSTRUMENTATION spoke with Neelam at [facility]. Neelam agreed to review. Neelam appeared familiar with patient's situation. Reports that often patient uses her motorizes scooter to transport herself to wound care clinic, and if patient's antibiotic needs were once per day she may be able to get infusions on an OP basis. CHEMIST INSTRUMENTATION completed PASRR. Plan: d/c plan pending POC/antibiotics needs. 1) [facility] reviewing for IV antibiotics when d/c. 2) return to [facility] and receive antibiotics in the OP setting. CM team will continue to follow closely. ANNIE Plummer Discharge Planning/Care Management CM Discharge Assessment Start: 01/05/23 12:39 Freq: Status: Active Protocol: Document 01/05/23 12:40 (Rec: 01/05/23 12:49 [id number]) Discharge Planning Assessment Assigned Grading Machine Operator ANNIE Taveras DPOA/Assigned Designee Name Semaj (daughter) Contact Information [phone] Advance Directives? Yes: POLST Advance Directives on File Yes History Provided By Medical Record Prior Living Arrangements Assisted Living Household Members caregiver Type of transporation used prior to Relies on Others admit Facility Name Admitted From: [facility] Willing to Return to Facility? Yes Is patient alert and oriented? Yes Needs Assistance With Bathing,Meal Prep,Toileting, Managing Medications,Home Chores / Shopping Comment Sit to stand hoier and motorized scooter Patient/Family Preference Long Term Facility Comment Has used [facility] and [facility] during previous admissions. Pending patient's functioning at d/c, may need [facility] for IV antibiotics at d/c. Patient may also take her electric scooter to the outpatient clinic if infusions are once per day. Comment Patient resides at [facility], may have difficulties getting her back on a weekend Discharge Plan Home Transportation Arrangement pending POC. [facility] reviewing now in case SNF is needed for IV antibiotics. Referrals Initiated Long Term,Home Health, Other Additional Comment [facility] has referral for back up if unable to do outpatient infusions. If patient plan is home with home health Yes : Has signed face to face form been completed? If patient plan is SNF: Has PASSR been Yes completed? SNF/HH Preference likely [facility] due to proximity to [facility] assisted living Has Agency SNF been contacted Yes Comment September reviewing Whiteboard Updated in Patient Room with No name and ext. # of Grading Machine Operator Review Status In Process Next Review Type Continued Stay Review
[2023-01-05] MEDS: diphenhydrAMINE 50 MG/ML VIAL 12.5 MG IV (14:16)
--- NOTE | 2023-01-05 23:22 | PC.NURSE ---
patient had a 23 beat run of vtach at 2221, asymptomatic. Dr. Loya notified, no new orders.
[2023-01-06] VITALS (23 sets, daily range): BP systolic 111–175; BP diastolic 57–93; PULSE 82–104; RESP 20–37; TEMP 36.1–37.5; O2SAT 86–98
[2023-01-06] MEDS: LORazepam 2 MG/ML INJ 0.5 MG IV (00:08)
[2023-01-06 05:32] LABS: Hematocrit 30.2 % (36-46); Hemoglobin 9.1 g/dL (12.0-16.0); Mean Corpuscular HGB Conc 30.1 % (30-36); Mean Corpuscular Hemoglobin 20.8 PG (26-34); Mean Corpuscular Volume 69.1 fL (80-100); Platelet Count 385 X10^3/uL (150-400); Red Blood Cell Count 4.37 X10^6/uL (4.0-5.2); White Blood Cell Count 28.4 X10^3/uL (4.5-11.0)
[2023-01-06 05:39] LABS: Alanine Aminotransferase 26 IU/L (<35); Albumin 3.4 g/dL (3.5-5.0); Albumin Globulin Ratio 0.9 (1.0-2.8); Alkaline Phosphatase 111 U/L (38-126); Aspartate Aminotransferase 22 IU/L (14-36); BUN Creatinine Ratio 65.5 (6-22); Bilirubin Total 0.4 mg/dL (0.2-1.3); Blood Urea Nitrogen 38 mg/dL (7-17); Calcium 9.1 mg/dL (8.4-10.2); Carbon Dioxide 36 mmol/L (22-32); Chloride 99 mmol/L (98-107); Estimated Glomerular Filt Rate > 60 mL/min (>60); Globulin 3.8 g/dL (1.7-4.1); Glucose 265 mg/dL (80-110); HEMOLYSIS < 15 (0-50); Potassium 3.9 mmol/L (3.4-5.1); Sodium 138 mmol/L (137-145); Total Protein 7.2 g/dL (6.3-8.2)
[2023-01-06 06:30] LABS: Add Manual Diff / Slide Review YES
[2023-01-06 06:51] LABS: Neutrophils Absolute Manual 24708 /uL (3000-5900); Total Cells Counted 100
[2023-01-06 06:52] LABS: Anisocytosis 2+; Hypochromasia 1+; Microcytosis 2+; Stomatocytes 1+
--- NOTE | 2023-01-06 07:55 | DI.RAD.S_ITS ---
1PROCEDURE: XR CHEST 1V INDICATIONS: continued hypoxia TECHNIQUE: One view of the chest was acquired. COMPARISON: [facility], CR, XR CHEST FOR PICC 1V, 01/04/2023, 16:51. [facility], CR, XR CHEST 1V, 01/04/2023, 7:43. FINDINGS: Surgical changes and devices: Stable position of right PICC. Lungs and pleura: Prominent interstitial markings appears improved. No pleural effusions or pneumothorax. Mediastinum: Mediastinal contours appear normal. Heart size is enlarged. Bones and chest wall: No suspicious bony lesions. Overlying soft tissues appear unremarkable. IMPRESSION: Cardiomegaly. Prominent interstitial markings appears improved compared to prior. May represent mild pulmonary edema. Dictated by: Richar Sanches M.D. on 01/06/2023 at 9:01 Approved by: Richar Sanches M.D. on 01/06/2023 at 9:03
[2023-01-06] MEDS: VANCOMYCIN 1,750 MG in SODIUM CHLORIDE 0.9% 500 ML 125 MG IV (08:04)
[2023-01-06] MEDS: FUROSEMIDE 40 MG/4 ML VIAL IV ×2 (08:05→17:43)
[2023-01-06] MEDS: methylPREDNISolone 125 MG/2 ML VIAL 60 MG IV (08:05)
[2023-01-06] MEDS: ENOXAPARIN 40 MG/0.4 ML SYRINGE SUBCUT ×2 (08:05→20:22)
[2023-01-06] MEDS: cefTRIAXone 2,000 MG in SODIUM CHLORIDE 0.9% 100 ML 200 MG IV (08:12)
[2023-01-06] MEDS: INSULIN LISPRO 100 UNIT/ML 3ML VIAL SUBCUT ×4 (08:42→20:23)
[2023-01-06] MEDS: INSULIN GLARGINE 100 UNIT/ML 3ML PEN 35 UNIT SUBCUT (08:43)
--- NOTE | 2023-01-06 08:48 | PC.NURSE ---
Addendum entered by Marzena Olmedo R.N. 01/06/23 19:23: Pt voiced to RN that she wanted a change in code status to DNR in the afternoon. RN relayed this information on to the provider. Frequent monitoring throughout the day, frequent repositioning at minimum 2h interval, more frequent with pt request and with RN patient care throughout the day. VSS. Addendum entered by Marzena Olmedo R.N. 01/06/23 13:48: In am after provider reviewed today's chest xray, provider mentioned increasing diuretic amount. Pt Fagan remains in due to ICU status, pt on diuretics and accurate I and O monitoring. Fagan care completed, CHG bath done, edmond care/ skin care done with barrier cream applied, and stat lock replaced. Addendum entered by Marzena Olmedo R.N. 01/06/23 11:43: After shift change, RN spoke with provider regarding AM vancomycin. Provider said to run at 1/2 rate (125ml/hr) due to pt developing rash yesterday. RN also brought up pt's orientation/LOC status, that she had not improved overnight and on AM assessment was only oriented to person. RN also brought up that pt unable to take PO meds overnight and that RN most likely will not be able to administer am PO meds for safety reasons. RN relayed that pt was on BiPAP for a total of 6 hours overnight according to night nurse. Provider okayed ABG and ordered chest xray to further assess respiratory status. After ABG drawn, RN relayed results to provider. Provider said a care goal is trying to keep pt off of BiPAP today if possible. Provider also said cxray Original Note: Spoke with provider, blood cultures resulted, antibiotics changed. Stopped early due to discontinued and doctors order to change to Ancef.
--- NOTE | 2023-01-06 09:04 | P.PN_ITS ---
Subjective Subjective Interval history: 63 F admitted with sepsis and acute respiratory failure. Put on BiPAP again overnight, back to Nasal cannula. Chest xray with more fluids. Remains confused this AM, oriented to name. Falls asleep easily. ABG with pH 7.4 PCO2 of 50. Exam Vital Signs (past 8 hours): - 01/06/23 01:59 01/06/23 02:00 01/06/23 02:00 Temperature 99.1 F 99.1 F Pulse Rate 93 H 95 H Respiratory Rate 26 H 24 Blood Pressure 140/74 Pulse Oximetry 95 95 Oxygen Flow Rate 01/06/23 03:00 01/06/23 07:39 01/06/23 08:00 Temperature 99.0 F 97.1 F L 97.1 F L Pulse Rate 99 H 98 H 98 H Respiratory Rate 26 H 30 H 30 H Blood Pressure 162/82 H 162/82 H Pulse Oximetry 97 86 L 86 L Oxygen Flow Rate 2 2 Fraction of Inspired Oxygen 25 Oxygen Delivery Method Nasal Cannula Oxygen Flow Rate 2 Narrative Exam Narrative: Gen: alert, but lethargic, now on nasal cannula. Difficult to understand, falls asleep easily. Lungs: diminished breath sounds, poor effort. right lower crackles minimal.? Otherwise adequate air entry throughout the lung welsh. CV: RRR no m/r/g. Ext: no edema, L foot with purplish toes but no necrosis, induration, or erythema. R foot better color but also no evidence of active infection of chronic wounds. Neuro: no focal deficits, moves all extremities. Objective Labs 01/06/23 05:00 01/06/23 05:00 Labs: Laboratory Results - last 24 hr 01/04/23 01/04/23 01/05/23 07:00 07:28 12:23 WBC RBC Hgb Hct MCV MCH MCHC RDW Plt Count Neut % (Auto) Lymph % (Auto) Stewart % (Auto) Eos % (Auto) Baso % (Auto) Lymph # (Auto) Stewart # (Auto) Baso # (Auto) Total Counted Seg Neutrophils % Band Neutrophils % Lymphocytes % (Manual) Monocytes % (Manual) Eosinophils % (Manual) Neutrophils # (Manual) RBC Morphology Hypochromasia Anisocytosis Microcytosis Stomatocytes Smear Path Review ABG pH 7.42 ABG pCO2 42.3 ABG pO2 197 H ABG HCO3 27 ABG Total CO2 29 H ABG O2 Saturation 100 ABG Base Excess 3.0 FiO2 60 Sodium Potassium Chloride Carbon Dioxide BUN Creatinine Estimated GFR BUN/Creatinine Ratio Glucose Calcium Magnesium Total Bilirubin AST ALT Alkaline Phosphatase Troponin I 0.485 H* Total Protein Albumin Globulin Albumin/Globulin Ratio 01/06/23 05:00 WBC 28.4 H RBC 4.37 Hgb 9.1 L Hct 30.2 L MCV 69.1 L MCH 20.8 L MCHC 30.1 RDW 19.0 H Plt Count 385 Neut % (Auto) Not Reportable Lymph % (Auto) Not Reportable Stewart % (Auto) Not Reportable Eos % (Auto) Not Reportable Baso % (Auto) Not Reportable Lymph # (Auto) Not Reportable [place] # (Auto) Not Reportable Baso # (Auto) Not Reportable Total Counted 100 Seg Neutrophils % 86.0 H Band Neutrophils % 1.0 L Lymphocytes % (Manual) 6.0 L Monocytes % (Manual) 6.0 Eosinophils % (Manual) 1.0 L Neutrophils # (Manual) 40293 H RBC Morphology See below Hypochromasia 1+ H Anisocytosis 2+ H Microcytosis 2+ H Stomatocytes 1+ H Smear Path Review ABG pH ABG pCO2 ABG pO2 ABG HCO3 ABG Total CO2 ABG O2 Saturation ABG Base Excess FiO2 Sodium 138 Potassium 3.9 Chloride 99 Carbon Dioxide 36 H BUN 38 H Creatinine 0.58 Estimated GFR > 60 BUN/Creatinine Ratio 65.5 H Glucose 265 H Calcium 9.1 Magnesium 2.0 Total Bilirubin 0.4 AST 22 ALT 26 Alkaline Phosphatase 111 Troponin I Total Protein 7.2 Albumin 3.4 L Globulin 3.8 Albumin/Globulin Ratio 0.9 L PFSH Medical History Abnormal LFTs Acute hyperkalemia CHF (congestive heart failure) Diabetes Leukocytosis (leucocytosis) Pneumonia PVD (peripheral vascular disease) Respiratory failure, acute Right hemiparesis Scalp laceration TIA (transient ischemic attack) Surgical History H/O angioplasty History of cholecystectomy Social History household members: caregiver Smoking Status: Current every day smoker alcohol intake: never Assessment & Plan Assessment & Plan narrative: 1. Sepsis secondary to possible bacterial pneumonia, acute cystitis with acute respiratory failure with hypoxia and hypotension - MRSA swab positive. Blood cultures from admission positive in 4/4 bottles with MSSA. Repeat cultures from 01/05 negative. Changed from ceftriaxone and vancomycin to cefazolin 2g q8 hr today given urine cultures with GNB still pending. Consider narrowing further to penicillin derivative depending on urine culture. Will need 2 weeks IV antibiotics at least. PICC line already in place. Previously followed with Dr. Bower at [facility] ID clinic but this provider is no longer there. - marked leukocytosis with WBC 50 on admission, continuing to improve. Also with new respiratory failure, metabolic encephalopathy, and hypotension. Now improving with antibiotics though encephalopathy is slow to improve. - hypotension developed after diuretic, was given fluids back. Will increase diuretic as discussed below. - trended lactate until near normal at 2.5 from 5 on admission. - consider skin infection leading to bacteremia, though her foot wounds do not appear actively infected and is less likely the source at this time. 2. acute respiratory failure with hypoxia - etiologies include sepsis, diastolic heart failure exacerbation, or COPD exacerbation. TTE with normal EF, no wall motion abnormalities but noted pulmonary HTN. Patient's obesity is certainly contributing. - continue management as in #1 above, initially decreased furosemide dosing but worsening congestion on CXR today, will increase furosemide to 40 mg BID. - continue sterodis for COPD exacerbation, continue methylprednisolone. - RT eval and treat - goal O2 89-96% while on supplemental therapy. 3. elevated troponin / myocardial injury - TTE with normal EF, no wall motion abnormalities, no chest pain - trend troponin until downtrending. Currently at 0.5. - likely secondary to demand in setting of sepsis. 4. Advanced care planning - She was previously DNR/DNI based on POLST form. However, when discussing current situation, if thought to be reversible etiology she would want to get better including with intubation if necessary. She does not wish to be a vegetable based on discussion with patient and family. Changed her code status to reflect this to full for now. # history of CVA ?- continue plavix, statin # chronic microcytic anemia, stable, present on admission - stable from prior admission # chronic leukocytosis with acute rise -per notes follows with hematology and source of leukocytosis unclear as patient refused bone marrow biopsy # DM2 -lantus increased again to 40U BID, increase as tolerated or needed based on blood sugars. -high dose SSI # PVD -continue plavix, statin # HTN -hold home losartan for now. # chronic LE diabetic foot ulcers -continue wound care. # insomnia, depression -continue celexa hold remeron and ambien while on bipap #obesity, BMI 42.1 Dispo: Stable for regular floor. Code: FULL, surrogate is patient's daughter Quality VTE Deep Vein Thrombosis/Pulmonary Embolism Present on Admission: No
[2023-01-06] MEDS: CEFAZOLIN 2 GM/100 ML PREMIX 100 ML IV ×2 (09:19→16:17)
[2023-01-06] MEDS: INSULIN GLARGINE 100 UNIT/ML 3ML PEN 50 UNIT SUBCUT (20:22)
[2023-01-07] VITALS (34 sets, daily range): BP systolic 118–157; BP diastolic 55–85; PULSE 79–98; RESP 16–34; TEMP 36.1–37.1; O2SAT 84–99; BMI 42.1
[2023-01-07] MEDS: CEFAZOLIN 2 GM/100 ML PREMIX 100 ML IV ×3 (00:06→16:40)
[2023-01-07 04:41] LABS: Add Manual Diff / Slide Review NO; Basophils Absolute Auto 0 /uL (0-100); Basophils Percent Auto 0.1 % (0-2); Eosinophils Absolute Auto 0 /uL (0-450); Hematocrit 31.2 % (36-46); Hemoglobin 9.4 g/dL (12.0-16.0); Lymphocytes Absolute Auto 1500 /uL (1100-4500); Lymphocytes Percent Auto 6.8 % (25-40); Mean Corpuscular HGB Conc 30.2 % (30-36); Mean Corpuscular Hemoglobin 20.8 PG (26-34); Mean Corpuscular Volume 68.9 fL (80-100); Monocytes Absolute Auto 2200 /uL (0-900); Monocytes Percent Auto 9.6 % (3-14); Neutrophils Absolute Auto 19000 /uL (1500-7000); Neutrophils Percent Auto 83.5 % (50-75); Platelet Count 391 X10^3/uL (150-400); Red Blood Cell Count 4.54 X10^6/uL (4.0-5.2); Red Cell Distribution Width 19.5 % (11.6-14.8); White Blood Cell Count 22.7 X10^3/uL (4.5-11.0)
[2023-01-07 04:46] LABS: Alanine Aminotransferase 22 IU/L (<35); Albumin 3.3 g/dL (3.5-5.0); Albumin Globulin Ratio 0.9 (1.0-2.8); Alkaline Phosphatase 101 U/L (38-126); Aspartate Aminotransferase 23 IU/L (14-36); BUN Creatinine Ratio 69.2 (6-22); Bilirubin Total 0.4 mg/dL (0.2-1.3); Blood Urea Nitrogen 36 mg/dL (7-17); Calcium 8.8 mg/dL (8.4-10.2); Chloride 95 mmol/L (98-107); Estimated Glomerular Filt Rate > 60 mL/min (>60); Globulin 3.8 g/dL (1.7-4.1); Glucose 202 mg/dL (80-110); HEMOLYSIS < 15 (0-50); Magnesium 1.8 mg/dL (1.6-2.3); Potassium 3.4 mmol/L (3.4-5.1); Sodium 137 mmol/L (137-145); Total Protein 7.1 g/dL (6.3-8.2)
[2023-01-07 04:52] LABS: Carbon Dioxide 37 mmol/L (22-32)
[2023-01-07 05:11] LABS: Anisocytosis 2+; Microcytosis 2+; Stomatocytes 2+
[2023-01-07] MEDS: methylPREDNISolone 125 MG/2 ML VIAL 60 MG IV (08:05)
[2023-01-07] MEDS: INSULIN GLARGINE 100 UNIT/ML 3ML PEN 50 UNIT SUBCUT ×2 (08:08→21:11)
[2023-01-07] MEDS: INSULIN LISPRO 100 UNIT/ML 3ML VIAL SUBCUT ×4 (08:08→21:12)
[2023-01-07] MEDS: ENOXAPARIN 40 MG/0.4 ML SYRINGE SUBCUT ×2 (08:10→21:10)
[2023-01-07] MEDS: DULOXETINE 20 MG CAPSULE PO (08:10)
[2023-01-07] MEDS: FUROSEMIDE 40 MG/4 ML VIAL IV (08:10)
[2023-01-07] MEDS: ATORVASTATIN 20 MG TABLET 80 MG PO (08:10)
[2023-01-07] MEDS: CITALOPRAM 10 MG TABLET 40 MG PO (08:11)
[2023-01-07] MEDS: FAMOTIDINE 20 MG TABLET PO (08:11)
[2023-01-07] MEDS: CLOPIDOGREL 75 MG TABLET PO (08:11)
[2023-01-07] MEDS: POTASSIUM CHLORIDE 20 MEQ TAB 40 MEQ PO (10:34)
--- NOTE | 2023-01-07 12:44 | OT.IPNOTE ---
Spoke to pt's nurse and pt able to eat breakfast after set-up this morning. Called [facility] to clarify pt's level of care for ADL's and mobility. Pt able to eat after set-up, one person assist for grooming, and two person assist for dressing,toileting, and bathing needs. Use of sit to stand machine for transfers. Pt at baseline for OT needs and therefore discharge from OT services, hospitalist, special education case manager, and nursing aware.
--- NOTE | 2023-01-07 12:46 | PT.IIE ---
Current Diagnoses Sepsis, unspecified organism (01/04/23) Surgical History (Last Reviewed 01/04/23 @ 22:18 by Rafael Mccoy DO) H/O angioplasty History of cholecystectomy Medical History (Last Reviewed 01/04/23 @ 22:18 by Rafael Mccoy DO) Abnormal LFTs Acute hyperkalemia CHF (congestive heart failure) Diabetes Leukocytosis (leucocytosis) Pneumonia PVD (peripheral vascular disease) Respiratory failure, acute Right hemiparesis Scalp laceration TIA (transient ischemic attack) Physical Therapy Inpatient Evaluation/Re-Eval M1 PT/OT-IP Prior Functional Status Start: 01/07/23 12:06 Freq: NEEDED Status: Active Protocol: Document 01/07/23 12:05 MB (Rec: 01/07/23 12:46 MB [id number]) Medical Review Prior Functional Status Medical History Reviewed Yes Communication Unsure baseline diet, she had set-up assistance at [facility] Mobility and Gait Pt required two person assistance with STS lift to move from her mechanical hospital bed to electric w/c at baseline Activities of Daily Living and IADL's Heavy assistance from [facility] staff for all ADLs Social History Household Members caregiver Living Arrangements Assisted Living Number of Floors (Floors) One Floor Number of Stairs To Enter/Railing? None Home Environment Standard Height Toilet,Walk in Shower,Built-In Shower Seat Home Equipment Power Wheelchair/Scooter,Tub Transfer Bench,Mechanical Lift ,Hospital Bed,Bed Rails,Grab Bars Near Toilet,Grab Bars In Shower Employment Status Unemployed M2 PT-IP Current Condition Start: 01/07/23 12:06 Freq: NEEDED Status: Active Protocol: Document 01/07/23 12:05 MB (Rec: 01/07/23 12:46 MB [id number]) Physical Therapy Current Condition Current Condition Evaluation Date 01/07/23 Treatment Diagnosis Sepsis, ARF, BiPap on arrival Onset Date Unknown, several days ago M3 PT-IP Subjective Start: 01/07/23 12:06 Freq: NEEDED Status: Active Protocol: Document 01/07/23 12:05 MB (Rec: 01/07/23 12:46 MB [id number]) Subjective Physical Therapy Visit Type Type Initial Evaluation Visit Start Time 12:05 Visit Stop Time 12:30 Total Visit Minutes 25 Number of INFORMATION BROKER Visits 0 Physical Therapy Visit Comments Patient Comments I don't want to when nsg arrives to help awaken pt and ask her to participate with PT Therapy Pain Assessment Pain Present Pain Present Denied Pain M4 PT-IP Mobility and Gait Start: 01/07/23 12:06 Freq: NEEDED Status: Active Protocol: Document 01/07/23 12:05 MB (Rec: 01/07/23 12:46 MB [id number]) PT-Bed Mobility Assessment Scooting Scooting Up and Down in Bed Dependent M5 PT-IP Objective Assessments Start: 01/07/23 12:06 Freq: NEEDED Status: Active Protocol: Document 01/07/23 12:05 MB (Rec: 01/07/23 12:46 MB [id number]) Orientation Orientation/Cognition Level of Alertness Confus[place] Safety Awareness Decreased Safety Awareness Comments Pt is lethargic and only makes some verbalizations with PT. She does appear oriented to herself but does not verbalize name, birthday, situation, etc. She does not follow any PT commands and has low tolerance to therapy/mobility, does not wish to participate. Gross Range of Motion Upper Extremity ROM Assessment Bilaterally Impaired Lower Extremity ROM Assessment Bilaterally Impaired Strength Upper Extremity Strength Assessment Bilaterally Impaired Lower Extremity Strength Assessment Bilaterally Impaired Comments Strength Comments Pt with many foot changes in setting of diabetic wounds and edema, globalized weakness. Pt appears to have some tone when PT attempts to range LEs and UEs. Pt feels clammy and legs are warm and UEs are cool to touch. M7 PT-IP Assessment and Plan Start: 01/07/23 12:06 Freq: NEEDED Status: Active Protocol: Document 01/07/23 12:05 MB (Rec: 01/07/23 12:46 MB [id number]) PT Summary Assessment and Plan Potential Rehabilitation Potential Poor Status of Condition at Evaluation Unstable Summary Impairments ROM,Strength,Balance,Tone, Cognition,Bed Mobility, Transfers,Activity Tolerance Progress Towards Goals Slow Progress due to Medical Issues Assessment Summary Pt is a 63 y/o female known to this PT from having interactions at [facility]. She requires +2 assistance at baseline and use of STS left for transfer from bed to her w /c, heavy assistance for ADLs and then she is mod I to mobilize in her electric w/c. She prefers to mobilize outside and smoke at baseline. There are not really many therapy goals for pt as she requires +2 assistance at baseline for mobility and a lift to transfer to an electric w/c. She has severe foot changes/wounds and con't to smoke at baseline despite diabetic wounds. She will not be able to progress to standing, gait or even manual w/c d/t chronic changes. She has c/o to this therapist in the past about a shoulder issue as well. Overall, her functional presentation is poor. Unsure what her medical trajectory is given unstable labs (troponin), need for blood thinner, cold and clammy limbs, lethargy, need for O2 and decreased participation with mobility. Frequency of Treatment Frequency Of Treatment Discharge Recommendations To Nursing Amount of Assist Needed Mechanical Lift Discharge Recommendations PT Discharge Recommendations LTAC Transportation Needs at Discharge Wheelchair/Cabulance
--- NOTE | 2023-01-07 13:03 | PM.PN.1 ---
Subjective Subjective Interval history: 63 F admitted with sepsis and acute respiratory failure. Blood cultures positive for MSSA. Narrowed to cefazolin. Encephalopathy is improving today. She remains weak but slowly improving. Exam Vital Signs (past 8 hours): - 01/07/23 07:35 01/07/23 07:43 01/07/23 08:00 Temperature 98.4 F Pulse Rate 91 H 90 Respiratory Rate 20 Blood Pressure 136/75 Pulse Oximetry 97 96 Oxygen Delivery Method Nasal Cannula Nasal Cannula Oxygen Flow Rate 2 Fraction of Inspired Oxygen 28 01/07/23 12:00 01/07/23 12:29 01/07/23 12:46 Temperature 98.6 F 97.0 F L Pulse Rate 90 Respiratory Rate 22 Blood Pressure 142/73 H Pulse Oximetry 95 96 92 Oxygen Delivery Method Oxygen Flow Rate 1 1 Fraction of Inspired Oxygen Fraction of Inspired Oxygen 28 SaO2/FiO2 Ratio 346 Oxygen Delivery Method Nasal Cannula Oxygen Flow Rate 1 Narrative Exam Narrative: Gen: alert, but lethargic, now on nasal cannula. Difficult to understand, falls asleep easily. Lungs: diminished breath sounds, poor effort. right lower crackles minimal.? Otherwise adequate air entry throughout the lung welsh. CV: RRR no m/r/g. Ext: no edema, L foot with purplish toes but no necrosis, induration, or erythema. R foot better color but also no evidence of active infection of chronic wounds. Neuro: no focal deficits, moves all extremities. Now alert and oriented to name, location, and month/year. Objective Labs 01/07/23 04:25 01/07/23 04:25 Labs: Laboratory Results - last 24 hr 01/07/23 04:25 WBC 22.7 H RBC 4.54 Hgb 9.4 L Hct 31.2 L MCV 68.9 L MCH 20.8 L MCHC 30.2 RDW 19.5 H Plt Count 391 Neut % (Auto) 83.5 H Lymph % (Auto) 6.8 L [place] % (Auto) 9.6 Eos % (Auto) 0.0 L Baso % (Auto) 0.1 Neut # (Auto) 60205 H Lymph # (Auto) 1500 [place] # (Auto) 2200 H Eos # (Auto) 0 Baso # (Auto) 0 RBC Morphology See below Anisocytosis 2+ H Microcytosis 2+ H Stomatocytes 2+ H Sodium 137 Potassium 3.4 Chloride 95 L Carbon Dioxide 37 H BUN 36 H Creatinine 0.52 Estimated GFR > 60 BUN/Creatinine Ratio 69.2 H Glucose 202 H Calcium 8.8 Magnesium 1.8 Total Bilirubin 0.4 AST 23 ALT 22 Alkaline Phosphatase 101 Total Protein 7.1 Albumin 3.3 L Globulin 3.8 Albumin/Globulin Ratio 0.9 L [facility] Medical History Abnormal LFTs Acute hyperkalemia CHF (congestive heart failure) Diabetes Leukocytosis (leucocytosis) Pneumonia PVD (peripheral vascular disease) Respiratory failure, acute Right hemiparesis Scalp laceration TIA (transient ischemic attack) Surgical History H/O angioplasty History of cholecystectomy Social History household members: caregiver Smoking Status: Current every day smoker alcohol intake: never Assessment & Plan Assessment & Plan narrative: 1. Sepsis secondary to possible bacterial pneumonia, acute cystitis with acute respiratory failure with hypoxia and hypotension - MRSA swab positive. Blood cultures from admission positive in / bottles with MSSA. Repeat cultures from 01/05 negative. Changed from ceftriaxone and vancomycin to cefazolin 2g q8 hr on 01/06 given urine cultures. Urine cultures with sensitive E. coli so will continue cefazolin. Will need 2 weeks IV antibiotics at least from negative culture (01/05). PICC line already in place. Previously followed with Dr. Bower at [facility] ID clinic but this provider is no longer there. - marked leukocytosis with WBC 50 on admission, continuing to improve. Also with new respiratory failure, metabolic encephalopathy, and hypotension. Now improving with antibiotics though encephalopathy is slow to improve. - hypotension developed after diuretic, was given fluids back. Will increase diuretic as discussed below. - trended lactate until near normal at 2.5 from 5 on admission. - consider skin infection leading to bacteremia, though her foot wounds do not appear actively infected and is less likely the source at this time. 2. acute respiratory failure with hypoxia - etiologies include sepsis, diastolic heart failure exacerbation, or COPD exacerbation. TTE with normal EF, no wall motion abnormalities but noted pulmonary HTN. Patient's obesity is certainly contributing. - continue management as in #1 above, initially decreased furosemide dosing but worsening congestion on CXR yesterday. Can transition to home dose furosemide 40 mg BID this afternoon. - continue steroids for COPD exacerbation, continued methylprednisolone can transition to PO prednisone now. - RT eval and treat - goal O2 89-96% while on supplemental therapy. 3. elevated troponin / myocardial injury - TTE with normal EF, no wall motion abnormalities, no chest pain - trended troponin until downtrending. Peaked at 0.5. - likely secondary to demand in setting of sepsis. 4. Advanced care planning - She was previously DNR/DNI based on POLST form. However, when discussing current situation, if thought to be reversible etiology she would want to get better including with intubation if necessary. She does not wish to be a vegetable based on discussion with patient and family. Changed her code status to reflect this to full for now. Continue to readdress as an outpatient. # history of CVA ?- continue plavix, statin # chronic microcytic anemia, stable, present on admission - stable from prior admission # chronic leukocytosis with acute rise -per notes follows with hematology and source of leukocytosis unclear as patient refused bone marrow biopsy # DM2 -lantus increased again to 50U BID, increase as tolerated or needed based on blood sugars. -high dose SSI # PVD -continue plavix, statin # HTN -hold home losartan for now. # chronic LE diabetic foot ulcers -continue wound care. # insomnia, depression -continue celexa hold remeron and ambien #obesity, BMI 42.1 Dispo: Inpatient. Will need SNF for 2 weeks IV antibiotics. Code: FULL, surrogate is patient's daughter Quality VTE Deep Vein Thrombosis/Pulmonary Embolism Present on Admission: No
--- NOTE | 2023-01-07 15:22 | CM.DPNOTE ---
DCP Note [facility] declined patient. Met w/patient to review DCP, explained that patient will need SNF in order to complete her IV abc course. Patient agreeable, says she wants the full course of abx of does not want to consider hospice services at this time. Updated that [facility] has declined, reviewed [facility] SNF choice list and patient agreeable to any SNF that can provide her with IV abx and accept her [facility]. Spoke w/ Jadyn at [facility] who can accept patient [id number]. Jadyn explains that she has custodial care beds if patient cannot safely return to [facility]. Patient cannot smoke at [facility]. Updated patient with information above and reiterated that she cannot smoke at [facility]. Explained that [facility] has custodial care beds available if she ends up staying for [facility]. Patient states understanding and is agreeable to plan. Plan: Discharge to [facility] Wednesday via w/c van or once medically stable. MARLENERR completed. 2 weeks IV abx at SNF. DESTINEE
[2023-01-07] MEDS: FUROSEMIDE 40 MG TABLET PO (16:40)
--- NOTE | 2023-01-07 16:45 | ST.IPCSEOM ---
Visit Care Team Role Provider Type Bk Espinoza MD Primary Care Provider Physician Specialty: Family Practice Obstetrics Address: [address] [place], [address] Phone: Fax: Email: [email or web address] Myles Pickard DO Emergency Provider Physician Referring Provider Specialty: Emergency Medicine Address: [address] [place] [address], [id number] Email: [email or web address] Rafael Mccoy DO Admit Provider Physician Attending Provider Specialty: Internal Medicine Address: [address] [place] [address], [facility] Email: [email or web address] Current Diagnoses Sepsis, unspecified organism (01/04/23) Past Medical History (Last Reviewed 01/04/23 @ 22:18 by Rafael Mccoy DO) Abnormal LFTs (Medical) Acute hyperkalemia (Medical) CHF (congestive heart failure) (Medical) Diabetes (Medical) Type 2, multiple complications Leukocytosis (leucocytosis) (Medical) Pneumonia (Medical) PVD (peripheral vascular disease) (Medical) 06/04/22 LE Doppler US: Hemodynamically significant bilateral outflow stenoses. Initial further assessment with MR angiography runoff evaluation is recommended. Respiratory failure, acute (Medical) Right hemiparesis (Medical) Scalp laceration (Medical) TIA (transient ischemic attack) (Medical) Speech-Language Pathology Swallow Evaluation STORE RECEIVING CLERK Clinical Swallow Evaluation Start: 01/07/23 11:41 Freq: Status: Active Protocol: Document 01/07/23 11:41 CG (Rec: 01/07/23 11:45 CG [id number]) Clinical Swallow Evaluation Session Time Visit Start Time 09:45 Visit Stop Time 10:20 Total Visit Minutes 35 Visit Information Visit Number [address] Mccoy Reason for Referral SOB/dysphagia Setting Assessment Location Acute Care Visit Type Note Type Initial evaluation Next Note Type Next Note Type Treatment Note Patient Information Identification Type Name,Wristband Subjective Observations Pt was seated partially reclined in bed with NC in place upon ST entry to room. She had thickened liquids present at bedside. Nursing reported she had had oral care performed before breakfast, but not since then. Pt was repositioned to upright position. STORE RECEIVING CLERK facilitated oral care while providing pt education re: importance of oral care for decreasing risk of developing aspiration PNA. Reported by Patient/Caregiver Other Symptoms Coughing,Difficulty swallowing liquids,Difficulty swallowing pills Comment Nursing reported that the pt demonstrates risk factors concerning for aspiration, including weak cough/throat clear and occasional coughing while drinking thin liquids. Per nursing notes, she has been intermittently unable to take medications PO due to reduced SKYLA. Current Diet Regular (IDDSI 7) Baseline Feeding Method Needs some assistance The IDDSI Framework Protocol: IDDSI.1 Objective Assessment Mental Status Responsive,Cooperative, Lethargic Oral Integrity Sores/Lesions Dentition Missing teeth,Upper dentures/ partials Lip Function Mild impairment Observation of Lips at Rest Symmetrical Pucker Reduced strength Tongue Function Mild impairment Tongue Protrusion Reduced range of motion, Reduced strength Tongue Retraction Reduced range of motion, Reduced strength Tongue Lateralization Reduced range of motion, Reduced strength Jaw Function Mild impairment Jaw Closing Reduced strength Observations of Hard/Soft Palate Growths/Lesions Respiratory Sufficiency Severe impairment Comment OME revealed mild-moderate lingual weakness and decreased ROM characterized by slow, small movements during lingual protrusion, lateralization, and elevation tasks. Pt has no upper teeth and has dentures, but they were not in place for this evaluation. She has some sparse lower dentition. Oral mucosa was moist and pink. She did have one small lesion (small pink bump, ?canker sore?) on her hard palate. Cued throat clear and cued cough were both severely weak, indicating decreased ability to protect the airway in the event of aspiration. Food and Liquid Trials Position During Assessment Upright (90 degrees) Oral Impairment Moderately impaired Oral Phase Comments Trials thin via teaspoon: Pt required max assistance to bring spoon to mouth without spilling water. Labial closure around teaspoon was mildly weakened/discoordinated with some anterior spillage. A-P lingual movement appeared mildly discoordinated but ultimately functional. Swallow initiation appeared timely. Thins via straw sip, controlled (straw pinch): Pt required moderate assistance to bring straw and cup to mouth. Labial closure around straw was complete. A-P lingual movement again appeared mildly discoordinated but ultimately functional. Swallow initiation appeared timely. Thin via straw sip, unrestricted: Pt required moderate assistance to bring straw and cup to mouth. She required mod verbal cues to take small, singular sips. A-P lingual movement again appeared mildly discoordinated but ultimately functional. Swallow initiation appeared timely. Puree (applesauce): Pt required moderate assistance to scoop applesauce and bring to mouth. Once in oral cavity , A-P lingual movement appeared coordinated and timely. Swallow intiation appeared timely. No oral residue was observed following the swallow. Regular solid (saltine cracker ): Pt was able to put cracker in mouth independently. Dentures were not present, so pt masticated using gum mashing. Mastication was prolongued and effortful, though O2 saturation remained in 98-99% range throughout. Solid pieces remained in the oral cavity after initial swallow. Liquid wash with thin liquid did not clear solids. Wash with puree solid (applesauce) cleared remainder of solid residue in the oral cavity. Pharyngeal Impairment Within functional limits Pharyngeal Phase Comments Across trials, no overt s/sx aspiration penetration were observed. However, silent aspiration cannot be ruled out without an instrumental assessment (which is not feasible at this time due to pt's mobility and respiratory status). Pharyngeal swallow was audible, possibly indicative of disorganized/ uncoordinated swallow physiology. However, this did not manifest with overt s/sx aspiration/penetration. Results Pt did not present with overt s/sx aspiration during trials thin liquid via single small straw sips. However, she remains an aspiration risk given compromised respiratory status, mobility status, and fluctuating level of alertness . She has difficulty controlling her rate of intake for liquids via straw and requires verbal cues to take single sips. Additionally, she presents with inefficient mastication resulting in solid pieces of residue in the oral cavity after the swallow which require a puree wash to clear. Therefore, she is more appropriate for smaller, moist solid foods (IDDSI 5 minced and moist solids) at this time. STORE RECEIVING CLERK recommends: 1. Oral care 4x/day+ 2. Small sips thin liquid via small straw, one at a time (no double sips) 3. Upright for all intake 4. Minced and moist (IDDSI 5) solids 5. Meds whole in carrier 6. Check for pocketing after intake The IDDSI Framework Protocol: IDDSI.1 Findings Swallowing Function Oral phase dysphagia Swallowing Function Comments Oral phase dysphagia, risk for aspiration 2/ respiratory insufficiency Severity of Swallow Impairment Mildly-moderately impaired Contributing Factors to Swallow Reduced alertness or attention Impairment ,Reduced oral strength/ coordination/sensation, Mastication inefficiency, Impaired airway protection Prognosis Fair Based on Bed bound,Comorbidities Impact on Safety and Functioning Risk for aspiration Recommendations Instrumental Assessment No Swallowing Treatment Yes Frequency as needed to establish diet tolerance Recommended Solids Minced & Moist (IDDSI 5) Recommended Liquids Thin (IDDSI 0) Safety Precautions/Swallowing Feed only when alert Recommendations Medication Recommendations Whole in Carrier Discharge Recommendations care home facility,senior living care facility Education Patient/Caregiver Education Described results of evaluation,Patient expressed understanding of evaluation, Patient expressed agreement with goals & treatment plans Goals Short-term Goals 1. Pt will tolerate current diet of thin liquids and minced/moist solids (IDDSI 5) without overt s/sx aspiration in order to decrease risk of aspiration pneumonia. 2. Pt will demonstrate recall and utilization of safe swallow strategies (small sip, single sip, upright posture for PO intake) independently in order to decrease dependence on caregivers for safety. Long-term Goals Pt will tolerate least restrictive diet without overt s/sx aspiration in order to meet nutrition/hydration needs .
--- NOTE | 2023-01-07 19:00 | PC.NURSE ---
Day shift: Pt A&O this am, slow to answer. Pt able to feed self at breakfast, requiring setup. VSS, 92% on 1L NC. Weak cough, lungs diminished with crackles in bases. Provider aware. Pt declined PT, stating, I didn't sleep last night. I'm too tired. Pt rested comfortably. Adult grandchild visiting at lunch, assisting pt with setup and cleanup. Pt provided CHG and bed bath. Bed alarm active. Call light within reach. Care ongoing.
[2023-01-07] MEDS: SODIUM CHLORIDE 0.9% FLUSH 10 ML IV (21:10)
[2023-01-08] VITALS (24 sets, daily range): BP systolic 120–146; BP diastolic 58–69; PULSE 66–93; RESP 16–32; TEMP 36.4–36.9; O2SAT 86–99
[2023-01-08] MEDS: CEFAZOLIN 2 GM/100 ML PREMIX 100 ML IV ×3 (00:17→16:51)
[2023-01-08] MEDS: INSULIN LISPRO 100 UNIT/ML 3ML VIAL SUBCUT ×4 (08:16→21:14)
[2023-01-08] MEDS: ATORVASTATIN 20 MG TABLET 80 MG PO (08:17)
[2023-01-08] MEDS: ENOXAPARIN 40 MG/0.4 ML SYRINGE SUBCUT ×2 (08:18→20:05)
[2023-01-08] MEDS: DULOXETINE 20 MG CAPSULE PO (08:18)
[2023-01-08] MEDS: predniSONE 20 MG TABLET 40 MG PO (08:18)
[2023-01-08] MEDS: CITALOPRAM 10 MG TABLET 40 MG PO (08:18)
[2023-01-08] MEDS: FAMOTIDINE 20 MG TABLET PO (08:18)
[2023-01-08] MEDS: CLOPIDOGREL 75 MG TABLET PO (08:18)
[2023-01-08] MEDS: SODIUM CHLORIDE 0.9% FLUSH 10 ML IV ×2 (08:19→20:05)
[2023-01-08] MEDS: FUROSEMIDE 40 MG TABLET PO ×2 (08:25→18:32)
[2023-01-08] MEDS: INSULIN GLARGINE 100 UNIT/ML 3ML PEN 50 UNIT SUBCUT (10:10)
[2023-01-08] MEDS: ACETAMINOPHEN 325 MG TABLET 650 MG PO (11:49)
--- NOTE | 2023-01-08 13:51 | CM.DPC ---
DCP Continued: INTERIOR DECORATOR PAINTING reviewed EMR. Per provider, Wednesday is a likely d/c timeline for patient to [facility]. INTERIOR DECORATOR PAINTING spoke with Jadyn at [facility]. Jadyn reports Wednesday would be ideal for them as well for a new intake. Jadyn wanted to confirm that patient knows it would be a semi private room. INTERIOR DECORATOR PAINTING entered room and introduced self and role. Patient resting in bed. Patient agreeable to [facility] when stable. Verbally acknowledges cannot smoke there. Verbally acknowledges it would be a semi private room. Plan: d/c to [facility] when medically stable. Transport with facility Wednesday and transport via cabulance over weekend. CM Team will continue to follow closely. ANNIE Plummer
--- NOTE | 2023-01-08 14:20 | P.PN_ITS ---
Subjective Subjective Interval history: 63 F admitted with sepsis and acute respiratory failure. Blood cultures positive for MSSA. Narrowed to cefazolin yesterday. Encephalopathy is improving today and she is now oriented but still feels groggy and a bit confused. She remains weak, but slowly improving. Exam Vital Signs (past 8 hours): - 01/08/23 07:00 01/08/23 07:59 01/08/23 07:59 Temperature 98.1 F 97.9 F Pulse Rate 82 82 Respiratory Rate 25 H 23 Blood Pressure 128/58 L Pulse Oximetry 97 99 Oxygen Delivery Method 01/08/23 08:00 01/08/23 08:00 01/08/23 08:00 Temperature 97.9 F Pulse Rate 81 Respiratory Rate 24 Blood Pressure 128/58 L Pulse Oximetry 98 Oxygen Delivery Method Nasal Cannula 01/08/23 09:00 01/08/23 10:00 01/08/23 11:00 Temperature 98.1 F Pulse Rate 84 90 93 H Respiratory Rate 23 25 H 32 H Blood Pressure Pulse Oximetry 97 94 97 Oxygen Delivery Method 01/08/23 11:23 01/08/23 11:23 01/08/23 11:34 Temperature 98.4 F Pulse Rate 87 Respiratory Rate 27 H Blood Pressure 133/64 Pulse Oximetry 86 L Oxygen Delivery Method Fraction of Inspired Oxygen 28 SaO2/FiO2 Ratio 346 Oxygen Delivery Method Nasal Cannula Oxygen Flow Rate 0 Narrative Exam Narrative: Gen: alert, but lethargic, now on nasal cannula. Difficult to understand, falls asleep easily. Lungs: diminished breath sounds, poor effort. right lower crackles minimal. Some wheeze today, ispiratory on the L middle lung field. CV: RRR no m/r/g. Ext: no edema, L foot with purplish toes but no necrosis, induration, or erythema. R foot better color but also no evidence of active infection of chronic wounds. Neuro: no focal deficits, moves all extremities. Now alert and oriented to name, location, and month/year. Objective Labs 01/07/23 04:25 01/07/23 04:25 [facility] Medical History Abnormal LFTs Acute hyperkalemia CHF (congestive heart failure) Diabetes Leukocytosis (leucocytosis) Pneumonia PVD (peripheral vascular disease) Respiratory failure, acute Right hemiparesis Scalp laceration TIA (transient ischemic attack) Surgical History H/O angioplasty History of cholecystectomy Social History household members: caregiver Smoking Status: Current every day smoker alcohol intake: never Assessment & Plan Assessment & Plan narrative: 1. Sepsis secondary to possible bacterial pneumonia, acute cystitis with acute respiratory failure with hypoxia and hypotension - MRSA swab positive. Blood cultures from admission positive in 07/07 bottles with MSSA. Repeat cultures from 01/05 negative. Changed from ceftriaxone and vancomycin to cefazolin 2g q8 hr on 01/06 given urine cultures also positive for E. coli. Will need 2 weeks IV antibiotics at least from negative culture (01/05). PICC line already in place. Previously followed with Dr. Bower at [facility] clinic but this provider is no longer there. - marked leukocytosis with WBC 50 on admission, continuing to improve. Also with new respiratory failure, metabolic encephalopathy, and hypotension. Now improving with antibiotics though encephalopathy is slow to improve. - hypotension developed after diuretic, was given fluids back. Will increase diuretic as discussed below. - trended lactate until near normal at 2.5 from 5 on admission. - consider skin infection leading to bacteremia, though her foot wounds do not appear actively infected and is less likely the source at this time. 2. acute respiratory failure with hypoxia - etiologies include sepsis, diastolic heart failure exacerbation, or COPD exacerbation. TTE with normal EF, no wall motion abnormalities but noted pulmonary HTN. Patient's obesity is certainly contributing. - continue management as in #1 above, initially decreased furosemide dosing but worsening congestion on CXR had a few days of 40 mg IV BID. Now transitioned to home dose furosemide 40 mg BID this afternoon. - continue steroids for COPD exacerbation, continued methylprednisolone and now on oral prednisone for COPD exacerbation. - RT eval and treat - goal O2 89-96% while on supplemental therapy. 3. elevated troponin / myocardial injury - TTE with normal EF, no wall motion abnormalities, no chest pain - trended troponin until downtrending. Peaked at 0.5. - likely secondary to demand in setting of sepsis. 4. Advanced care planning - She was previously DNR/DNI based on POLST form. However, when discussing current situation, if thought to be reversible etiology she would want to get better including with intubation if necessary. She does not wish to be a vegetable based on discussion with patient and family. Changed her code status to reflect this to full for now. Continue to readdress as an outpatient. # history of CVA ?- continue plavix, statin # chronic microcytic anemia, stable, present on admission - stable from prior admission # chronic leukocytosis with acute rise -per notes follows with hematology and source of leukocytosis unclear as patient refused bone marrow biopsy # DM2 -lantus increased again to 50U BID, increase as tolerated or needed based on blood sugars. -high dose SSI # PVD -continue plavix, statin # HTN -hold home losartan for now. # chronic LE diabetic foot ulcers -continue wound care. # insomnia, depression -continue celexa hold remeron and ambien #obesity, BMI 42.1 Dispo: Inpatient. Will need SNF for 2 weeks IV antibiotics. Possibly ready in a couple of days depending on improvement in encephalopathy. Code: FULL, surrogate is patient's daughter Quality VTE Deep Vein Thrombosis/Pulmonary Embolism Present on Admission: No
[2023-01-08] MEDS: INSULIN GLARGINE 100 UNIT/ML 3ML PEN 55 UNIT SUBCUT (21:13)
[2023-01-08] MEDS: ZOLPIDEM 5 MG TABLET 10 MG PO (21:30)
[2023-01-08] MEDS: CODEINE/ACETAMINOPHEN 30/300 TABLET 1 TAB PO (21:30)
[2023-01-09] VITALS: BP 147/78; PULSE 79; RESP 16; TEMP 36.8; O2SAT 97
[2023-01-09] MEDS: CEFAZOLIN 2 GM/100 ML PREMIX 100 ML IV ×4 (00:23→23:32)
[2023-01-09 04:00] VITALS: BP 158/84; PULSE 75; RESP 16; TEMP 36.3; O2SAT 97
--- NOTE | 2023-01-09 06:31 | PC.NURSE ---
Karate Teacher Note-Patient has been A/Ox2-3, participates in care and can make needs known. HS BG 324, Lantus and Humalog given. Patient started having increased pain to legs 12/13 and requested routine Ambien, Tele-Hospitalist notified, orders received, see Emar. Slept most of the night, SpO2 >90% on 2L NC. 1500ml into Purewick + 2 incontinence.
[2023-01-09] MEDS: ATORVASTATIN 20 MG TABLET 80 MG PO (08:11)
[2023-01-09] MEDS: predniSONE 20 MG TABLET 40 MG PO (08:11)
[2023-01-09] MEDS: CITALOPRAM 10 MG TABLET 40 MG PO (08:11)
[2023-01-09] MEDS: CLOPIDOGREL 75 MG TABLET PO (08:12)
[2023-01-09] MEDS: INSULIN GLARGINE 100 UNIT/ML 3ML PEN 60 UNIT SUBCUT (08:12)
[2023-01-09] MEDS: FAMOTIDINE 20 MG TABLET PO (08:12)
[2023-01-09] MEDS: DULOXETINE 20 MG CAPSULE PO (08:12)
[2023-01-09] MEDS: FUROSEMIDE 40 MG TABLET PO ×2 (08:12→17:10)
[2023-01-09] MEDS: INSULIN LISPRO 100 UNIT/ML 3ML VIAL SUBCUT ×4 (08:15→20:57)
[2023-01-09] MEDS: ENOXAPARIN 40 MG/0.4 ML SYRINGE SUBCUT ×2 (08:40→20:58)
--- NOTE | 2023-01-09 09:25 | P.PN_ITS ---
Subjective Subjective Interval history: Patient says she feels alot better today overall. Exam Vital Signs (past 8 hours): - 01/09/23 04:00 Temperature 97.4 F L Pulse Rate 75 Respiratory Rate 16 Blood Pressure 158/84 H Pulse Oximetry 97 Oxygen Flow Rate 2 Fraction of Inspired Oxygen 24 SaO2/FiO2 Ratio 387 Oxygen Delivery Method Nasal Cannula Oxygen Flow Rate 2 Narrative Exam Narrative: Gen: alert, NAD Lungs: diminished breath sounds, poor effort. right lower crackles minimal. Some wheeze today, inspiratory on the L middle lung field. CV: RRR no m/r/g. Ext: no edema, L foot with purplish toes but no necrosis, induration, or erythema. R foot better color but also no evidence of active infection of chronic wounds. Neuro: no focal deficits, moves all extremities. Now alert and oriented to name, location, and month/year. Objective Labs 01/09/23 10:30 01/09/23 10:30 [facility] Medical History Abnormal LFTs Acute hyperkalemia CHF (congestive heart failure) Diabetes Leukocytosis (leucocytosis) Pneumonia PVD (peripheral vascular disease) Respiratory failure, acute Right hemiparesis Scalp laceration TIA (transient ischemic attack) Surgical History H/O angioplasty History of cholecystectomy Social History household members: caregiver Smoking Status: Current every day smoker alcohol intake: never Assessment & Plan Assessment & Plan narrative: # sepsis secondary to possible bacterial pneumonia, acute cystitis with acute respiratory failure with hypoxia and hypotension - MRSA swab positive. Blood cultures from admission positive in 07/07 bottles with MSSA. Repeat cultures from 01/05 negative. Changed from ceftriaxone and vancomycin to cefazolin 2g q8 hr on 01/06 given urine cultures also positive for E. coli. Will need 2 weeks IV antibiotics at least from negative culture (01/05). PICC line already in place. Previously followed with Dr. Bower at [facility] clinic but this provider is no longer there. - marked leukocytosis with WBC 50 on admission, continuing to improve. Also with new respiratory failure, metabolic encephalopathy, and hypotension. Now improving with antibiotics though encephalopathy is slow to improve. - hypotension developed after diuretic, was given fluids back. Will increase diuretic as discussed below. - trended lactate until near normal at 2.5 from 5 on admission. - consider skin infection leading to bacteremia, though her foot wounds do not appear actively infected and is less likely the source at this time. # acute on chronic respiratory failure with hypoxia - patient notes she was recently placed on home O2 - etiologies include sepsis, diastolic heart failure exacerbation, or COPD exacerbation. TTE with normal EF, no wall motion abnormalities but noted pulmonary HTN. Patient's obesity is certainly contributing. - continue management as in #1 above, initially decreased furosemide dosing but worsening congestion on CXR had a few days of 40 mg IV BID. Now transitioned to home dose furosemide 40 mg BID this afternoon. - continue steroids for COPD exacerbation, continued methylprednisolone and now on oral prednisone for COPD exacerbation. - patient continues on 2L NC - goal O2 89-96% while on supplemental therapy. # elevated troponin / myocardial injury - TTE with normal EF, no wall motion abnormalities, no chest pain - trended troponin until downtrending. Peaked at 0.5. - likely secondary to demand in setting of sepsis. # advanced care planning - She was previously DNR/DNI based on POLST form. However, when discussing current situation, if thought to be reversible etiology she would want to get better including with intubation if necessary. She does not wish to be a vegetable based on discussion with patient and family. Changed her code status to reflect this to full for now. Continue to readdress as an outpatient. # history of CVA ?- continue plavix, statin # chronic microcytic anemia, stable, present on admission - stable from prior admission # chronic leukocytosis with acute rise -per notes follows with hematology and source of leukocytosis unclear as patient refused bone marrow biopsy # DM2 -lantus increased again to 50U BID, increase as tolerated or needed based on blood sugars. -high dose SSI # PVD -continue plavix, statin # HTN -hold home losartan for now. # chronic LE diabetic foot ulcers -continue wound care. # insomnia, depression -continue celexa and ambien, hold remeron #obesity, BMI 42.1 Dispo: Inpatient. Will need SNF for 2 weeks IV antibiotics. Awaiting auth. Code: FULL, surrogate is patient's daughter Quality VTE Deep Vein Thrombosis/Pulmonary Embolism Present on Admission: No
[2023-01-09 09:29] VITALS: BP 168/78; PULSE 75; RESP 18; TEMP 36.6; O2SAT 100
[2023-01-09 10:47] LABS: Hematocrit 34.9 % (36-46); Hemoglobin 10.6 g/dL (12.0-16.0); Mean Corpuscular HGB Conc 30.4 % (30-36); Mean Corpuscular Volume 69.2 fL (80-100); Platelet Count 415 X10^3/uL (150-400); Red Blood Cell Count 5.05 X10^6/uL (4.0-5.2); Red Cell Distribution Width 19.7 % (11.6-14.8); White Blood Cell Count 29.3 X10^3/uL (4.5-11.0)
[2023-01-09 10:48] LABS: Add Manual Diff / Slide Review YES
[2023-01-09 10:58] LABS: Alanine Aminotransferase 43 IU/L (<35); Albumin 3.3 g/dL (3.5-5.0); Alkaline Phosphatase 108 U/L (38-126); Aspartate Aminotransferase 41 IU/L (14-36); BUN Creatinine Ratio 44.4 (6-22); Bilirubin Total 0.4 mg/dL (0.2-1.3); Blood Urea Nitrogen 20 mg/dL (7-17); Calcium 8.3 mg/dL (8.4-10.2); Carbon Dioxide 36 mmol/L (22-32); Chloride 86 mmol/L (98-107); Estimated Glomerular Filt Rate > 60 mL/min (>60); Globulin 3.3 g/dL (1.7-4.1); Glucose 349 mg/dL (80-110); HEMOLYSIS 22 (0-50); Potassium 3.7 mmol/L (3.4-5.1); Sodium 130 mmol/L (137-145); Total Protein 6.6 g/dL (6.3-8.2)
[2023-01-09 11:15] LABS: Neutrophils Absolute Manual 23440 /uL (3000-5900); Total Cells Counted 100
[2023-01-09 11:16] LABS: Anisocytosis 1+
--- NOTE | 2023-01-09 11:43 | PC.NURSE ---
Patient declined opportunities to eat meals in bedside chair.
[2023-01-09 14:07] VITALS: BP 152/78; PULSE 80; RESP 18; TEMP 36.6; O2SAT 97
--- NOTE | 2023-01-09 14:45 | CM.DPC ---
DCP Continued: SURGICAL LEAD reviewed EMR. Per provider in rounds, d/c plan to [facility] on Wednesday continues to be appropriate. Per chart review, patient has a PICC line. Plan: d/c to [facility] when medically stable, likely Wednesday. CM team will arrange transportation with [facility] when d/c timeline becomes clearer. CM team will continue to follow closely. ANNIE Plummer
[2023-01-09 17:00] VITALS: BP 150/73; PULSE 83; RESP 18; TEMP 36.6; O2SAT 96
[2023-01-09 20:00] VITALS: BP 109/57; PULSE 92; RESP 21; TEMP 36.6; O2SAT 96
[2023-01-09] MEDS: CODEINE/ACETAMINOPHEN 30/300 TABLET 1 TAB PO (20:55)
[2023-01-09] MEDS: INSULIN GLARGINE 100 UNIT/ML 3ML PEN 55 UNIT SUBCUT (20:56)
[2023-01-09] MEDS: SODIUM CHLORIDE 0.9% FLUSH 10 ML IV (20:56)
[2023-01-09] MEDS: POTASSIUM CHLORIDE 20 MEQ TAB PO (20:56)
[2023-01-09] MEDS: ZOLPIDEM 5 MG TABLET 10 MG PO (20:56)
[2023-01-10] VITALS (8 sets, daily range): BP systolic 102–131; BP diastolic 48–73; PULSE 80–91; RESP 17–27; TEMP 35.8–36.9; O2SAT 93–98
[2023-01-10 04:48] LABS: BUN Creatinine Ratio 46.3 (6-22); Blood Urea Nitrogen 19 mg/dL (7-17); Calcium 8.5 mg/dL (8.4-10.2); Carbon Dioxide 39 mmol/L (22-32); Chloride 91 mmol/L (98-107); Estimated Glomerular Filt Rate > 60 mL/min (>60); Glucose 89 mg/dL (80-110); HEMOLYSIS 35 (0-50); Sodium 133 mmol/L (137-145)
[2023-01-10 04:55] LABS: Hemoglobin 11.1 g/dL (12.0-16.0); Mean Corpuscular HGB Conc 30.7 % (30-36); Mean Corpuscular Volume 68.2 fL (80-100); Platelet Count 453 X10^3/uL (150-400); Red Blood Cell Count 5.27 X10^6/uL (4.0-5.2); Red Cell Distribution Width 19.1 % (11.6-14.8)
[2023-01-10 05:07] LABS: Add Manual Diff / Slide Review YES; White Blood Cell Count 36.6 X10^3/uL (4.5-11.0)
[2023-01-10 06:40] LABS: Neutrophils Absolute Manual 27450 /uL (3000-5900); Total Cells Counted 100
[2023-01-10 06:41] LABS: Anisocytosis 2+; Microcytosis 1+
[2023-01-10] MEDS: CEFAZOLIN 2 GM/100 ML PREMIX 100 ML IV ×2 (09:20→17:16)
[2023-01-10] MEDS: FAMOTIDINE 20 MG TABLET PO (09:21)
[2023-01-10] MEDS: CLOPIDOGREL 75 MG TABLET PO (09:21)
[2023-01-10] MEDS: FUROSEMIDE 40 MG TABLET PO ×2 (09:22→17:15)
[2023-01-10] MEDS: DULOXETINE 20 MG CAPSULE PO (09:22)
[2023-01-10] MEDS: POTASSIUM CHLORIDE 20 MEQ TAB PO ×2 (09:22→21:02)
[2023-01-10] MEDS: ATORVASTATIN 20 MG TABLET 80 MG PO (09:23)
[2023-01-10] MEDS: ENOXAPARIN 40 MG/0.4 ML SYRINGE SUBCUT ×2 (09:23→21:01)
[2023-01-10] MEDS: INSULIN GLARGINE 100 UNIT/ML 3ML PEN 60 UNIT SUBCUT (09:23)
[2023-01-10] MEDS: SODIUM CHLORIDE 0.9% FLUSH 10 ML IV (09:24)
[2023-01-10] MEDS: CITALOPRAM 10 MG TABLET 40 MG PO (10:21)
[2023-01-10] MEDS: INSULIN LISPRO 100 UNIT/ML 3ML VIAL SUBCUT ×3 (12:23→21:02)
--- NOTE | 2023-01-10 13:49 | CM.DPC ---
DCP Continued: MODERN DANCER reviewed EMR. Per provider, patient likely able to d/c to [facility] tomorrow. MODERN DANCER called and lvm x2 to arrange d/c to [facility]. No response as of 1350. MODERN DANCER entered room and reintroduced self and role. Patient sitting up in bed. Patient reports on board with plan to d/c to [facility] tomorrow. Patient requests someone from [facility] bring her her wheelchair, blanket, pillow, and sheets for her to d/c to [facility] with. Patient reports she was supposed to have a wound care appointment on 01/08 for her feet? MODERN DANCER updated RN on patient's wound care inquiry. RN agreed to investigate. MODERN DANCER spoke with Andre as [facility]. Reports he will bring over patient's requested items today. Plan: CM team will arrange d/c to [facility] tomorrow morning. CM team will continue to follow closely. ANNIE Plummer
--- NOTE | 2023-01-10 14:49 | PM.PN.1 ---
Subjective Subjective Interval history: Patient awaiting SNF. Has no complaints. Exam Vital Signs (past 8 hours): - 01/10/23 07:12 01/10/23 08:00 01/10/23 10:16 Temperature 97.9 F Pulse Rate 91 H Respiratory Rate 27 H Blood Pressure 119/63 Pulse Oximetry 94 94 Oxygen Delivery Method Nasal Cannula Nasal Cannula Humidification Oxygen Flow Rate 0.5 2 Fraction of Inspired Oxygen 22 Fraction of Inspired Oxygen 22 SaO2/FiO2 Ratio 427 Oxygen Delivery Method Nasal Cannula,Humidification Oxygen Flow Rate 2 Narrative Exam Narrative: Gen: alert, NAD Lungs: diminished breath sounds, poor effort. right lower crackles minimal. Some wheeze today, inspiratory on the L middle lung field. CV: RRR no m/r/g. Ext: no edema, L foot with purplish toes but no necrosis, induration, or erythema. R foot better color but also no evidence of active infection of chronic wounds. Neuro: no focal deficits, moves all extremities. Now alert and oriented to name, location, and month/year. Objective Labs 01/10/23 04:15 01/10/23 04:15 Labs: Laboratory Results - last 24 hr 01/10/23 04:15 WBC 36.6 H* RBC 5.27 H Hgb 11.1 L Hct 36.0 MCV 68.2 L MCH 21.0 L MCHC 30.7 RDW 19.1 H Plt Count 453 H Neut % (Auto) Not Reportable Lymph % (Auto) Not Reportable [place] % (Auto) Not Reportable Eos % (Auto) Not Reportable Baso % (Auto) Not Reportable Lymph # (Auto) Not Reportable [place] # (Auto) Not Reportable Baso # (Auto) Not Reportable Total Counted 100 Seg Neutrophils % 72.0 H Band Neutrophils % 3.0 Lymphocytes % (Manual) 18.0 L Monocytes % (Manual) 7.0 Metamyelocytes % 1.0 H Myelocytes % 1.0 H Neutrophils # (Manual) 34432 H RBC Morphology See below Anisocytosis 2+ H Microcytosis 1+ H Sodium 133 L Potassium 4.0 Chloride 91 L Carbon Dioxide 39 H BUN 19 H Creatinine 0.41 L Estimated GFR > 60 BUN/Creatinine Ratio 46.3 H Glucose 89 D Calcium 8.5 PFSH Medical History Abnormal LFTs Acute hyperkalemia CHF (congestive heart failure) Diabetes Leukocytosis (leucocytosis) Pneumonia PVD (peripheral vascular disease) Respiratory failure, acute Right hemiparesis Scalp laceration TIA (transient ischemic attack) Surgical History H/O angioplasty History of cholecystectomy Social History household members: caregiver Smoking Status: Current every day smoker alcohol intake: never Assessment & Plan Assessment & Plan narrative: # sepsis secondary to possible bacterial pneumonia, acute cystitis with acute respiratory failure with hypoxia and hypotension - MRSA swab positive. Blood cultures from admission positive in 07/07 bottles with MSSA. Repeat cultures from 01/05 negative. Changed from ceftriaxone and vancomycin to cefazolin 2g q8 hr on 01/06 given urine cultures also positive for E. coli. Will need 2 weeks IV antibiotics at least from negative culture (01/05). PICC line already in place. Previously followed with Dr. Bower at [facility] ID clinic but this provider is no longer there. - marked leukocytosis with WBC 50 on admission, continuing to improve. Also with new respiratory failure, metabolic encephalopathy, and hypotension. Now improving with antibiotics though encephalopathy is slow to improve. - hypotension developed after diuretic, was given fluids back. Will increase diuretic as discussed below. - trended lactate until near normal at 2.5 from 5 on admission. - consider skin infection leading to bacteremia, though her foot wounds do not appear actively infected and is less likely the source at this time. # acute on chronic respiratory failure with hypoxia - patient notes she was recently placed on home O2 - etiologies include sepsis, diastolic heart failure exacerbation, or COPD exacerbation. TTE with normal EF, no wall motion abnormalities but noted pulmonary HTN. Patient's obesity is certainly contributing. - continue management as in #1 above, initially decreased furosemide dosing but worsening congestion on CXR had a few days of 40 mg IV BID. Now transitioned to home dose furosemide 40 mg BID this afternoon. - continue steroids for COPD exacerbation, continued methylprednisolone and now on oral prednisone for COPD exacerbation. - patient continues on 2L NC - goal O2 89-96% while on supplemental therapy. # elevated troponin / myocardial injury - TTE with normal EF, no wall motion abnormalities, no chest pain - trended troponin until downtrending. Peaked at 0.5. - likely secondary to demand in setting of sepsis. # advanced care planning - She was previously DNR/DNI based on POLST form. However, when discussing current situation, if thought to be reversible etiology she would want to get better including with intubation if necessary. She does not wish to be a vegetable based on discussion with patient and family. Changed her code status to reflect this to full for now. Continue to readdress as an outpatient. # history of CVA ?- continue plavix, statin # chronic microcytic anemia, stable, present on admission - stable from prior admission # chronic leukocytosis with acute rise -per notes follows with hematology and source of leukocytosis unclear as patient refused bone marrow biopsy # DM2 -lantus increased again to 50U BID, increase as tolerated or needed based on blood sugars. -high dose SSI # PVD -continue plavix, statin # HTN -hold home losartan for now. # chronic LE diabetic foot ulcers -continue wound care. # insomnia, depression -continue celexa and ambien, hold remeron #obesity, BMI 42.1 Dispo: Inpatient. Will need SNF for 2 weeks IV antibiotics. Will go to SNF on 01/11. Code: FULL, surrogate is patient's daughter Quality VTE Deep Vein Thrombosis/Pulmonary Embolism Present on Admission: No
[2023-01-10] MEDS: SODIUM CHLORIDE 0.9% 250 ML 21 ML IV (17:15)
[2023-01-10] MEDS: CODEINE/ACETAMINOPHEN 30/300 TABLET 1 TAB PO (17:56)
[2023-01-10] MEDS: INSULIN GLARGINE 100 UNIT/ML 3ML PEN 55 UNIT SUBCUT (21:01)
[2023-01-10] MEDS: ZOLPIDEM 5 MG TABLET 10 MG PO (21:03)
--- NOTE | 2023-01-10 23:43 | PC.NURSE ---
Addendum entered by Nasima Bernal R.N. 01/11/23 06:48: Has slept most of night. Intermittently desats but having more episodes of sat dropping < 89% this morning due to mouth breathing. When prompted to breathe through her nose rather than her mouth sats quickly rebound back into low 90's. Original Note: Patient is alert and oriented except did not know day of month. Reports her vision is poor and only able to see shapes. Respirations are shallow and breath sounds are diminished but CTA; on oxygen at 1.5L/min per NC with sat of 96% and is still on continuous oximetry. HRR. Denied nausea. BT hypoactive and is passing flatus but has not had a BM since prior to admit on 01/04; hospitalist precision lens centerer and edger informed. Is incontinent of urine so external catheter is in place; reports chronic burning with urination and is being treated for ecoli UTI. Is needing assist to reposition q2h but is able to assist. Unable to ambulate and requires use of Luiz lift for transfers in/out of bed. Groins and coccyx area are reddened but without breakdown. Abrasions/bruising on bilateral UE. Chronic wounds on bilateral feet and dressings are CDI; feet are in protectors and floated. Denied pain at time of assessment but did complain of butt pain at shift change which was relieved by repositioning. Remains on contact isolation due to MRSA positive in nares. Fall risk score is high and bed alarm is activated. Medicated with ambien for sleep.
[2023-01-11 00:21] VITALS: PULSE 77; RESP 20; O2SAT 93
[2023-01-11] MEDS: SODIUM CHLORIDE 0.9% FLUSH 10 ML IV ×4 (00:33→09:03)
[2023-01-11] MEDS: CEFAZOLIN 2 GM/100 ML PREMIX 100 ML IV ×2 (00:33→09:03)
[2023-01-11 03:00] VITALS: BP 125/68; PULSE 84; RESP 21; TEMP 35.9; O2SAT 96
[2023-01-11 05:38] LABS: Hematocrit 35.5 % (36-46); Hemoglobin 10.6 g/dL (12.0-16.0); Mean Corpuscular HGB Conc 29.7 % (30-36); Mean Corpuscular Hemoglobin 20.3 PG (26-34); Mean Corpuscular Volume 68.2 fL (80-100); Platelet Count 467 X10^3/uL (150-400); Red Blood Cell Count 5.21 X10^6/uL (4.0-5.2); Red Cell Distribution Width 19.3 % (11.6-14.8)
[2023-01-11 05:44] LABS: BUN Creatinine Ratio 35.6 (6-22); Blood Urea Nitrogen 16 mg/dL (7-17); Calcium 8.3 mg/dL (8.4-10.2); Carbon Dioxide 38 mmol/L (22-32); Chloride 92 mmol/L (98-107); Estimated Glomerular Filt Rate > 60 mL/min (>60); Glucose 66 mg/dL (80-110); HEMOLYSIS 17 (0-50); Sodium 134 mmol/L (137-145)
[2023-01-11 06:22] LABS: Add Manual Diff / Slide Review YES; White Blood Cell Count 38.3 X10^3/uL (4.5-11.0)
[2023-01-11 07:23] LABS: Anisocytosis 2+; Microcytosis 2+; Neutrophils Absolute Manual 31406 /uL (3000-5900); Total Cells Counted 100
[2023-01-11 07:24] LABS: Hypochromasia 1+
[2023-01-11 07:25] LABS: Stomatocytes 1+
[2023-01-11 07:41] VITALS: O2SAT 96
[2023-01-11 08:48] VITALS: BP 148/73; PULSE 86; RESP 20; TEMP 36.3; O2SAT 99
[2023-01-11] MEDS: ENOXAPARIN 40 MG/0.4 ML SYRINGE SUBCUT (08:58)
[2023-01-11] MEDS: INSULIN GLARGINE 100 UNIT/ML 3ML PEN 60 UNIT SUBCUT (08:59)
[2023-01-11] MEDS: CLOPIDOGREL 75 MG TABLET PO (09:01)
[2023-01-11] MEDS: ATORVASTATIN 20 MG TABLET 80 MG PO (09:01)
[2023-01-11] MEDS: DULOXETINE 20 MG CAPSULE PO (09:01)
[2023-01-11] MEDS: SENNOSIDES 8.6 MG TABLET 17.2 MG PO (09:01)
[2023-01-11] MEDS: CYCLOBENZAPRINE 10 MG TABLET PO (09:01)
[2023-01-11] MEDS: FAMOTIDINE 20 MG TABLET PO (09:01)
[2023-01-11] MEDS: POTASSIUM CHLORIDE 20 MEQ TAB PO (09:01)
[2023-01-11] MEDS: CODEINE/ACETAMINOPHEN 30/300 TABLET 1 TAB PO (09:13)
[2023-01-11] MEDS: FUROSEMIDE 40 MG TABLET PO (09:13)
--- NOTE | 2023-01-11 11:27 | P.DS_ITS ---
History of Present Illness History of Present Illness Date Patient Seen: 01/04/23 Time Patient Seen: 15:37 Chief complaint: SOB Narrative: ?Ariana Causey is a 62yo F with PMH of HTN, HLD, morbid obesity, type 2 diabetes with chronic foot wounds followed by wound care, peripheral vascular disease, prior CVA, probable COPD, and active smoker?who presents from [facility] with reported worsening shortness of breath over the past couple of days. Patient is currently on BiPAP, lethargic and not able to reliably participate in additional history. In the emergency room she was found to have a number of issues. She was markedly hypoxic, placed on bipap with improvement. Labs noteable for elevated troponin without marked EKG changes and no chest pain. TTE was performed and was grossly unchanged from before (to evaluate for possible NSTEMI). She was given lasix initially, then added some fluids for possible sepsis. CTA was performed and was negative for PE. Did show possible mucous plugging with air trapping, volume overload, possible infiltrates. UA was grossly positive as well. CT abdomen showed no acute pathologies. She also developed high fever. Procalcitonin was elevated at 3.28. She was admitted to the ICU for further management and evaluation. I did discuss with pulmonology for possible bronchoscopy whom was not impressed with CT findings, and did not believe that to be the etiology of her presentation. Discharge Providers Provider Date of admission: 01/04/23 14:25 Discharge Date: 01/11/23 Primary care physician: Bk Espinoza MD Consults: 01/06/23 15:13 Consult to Speech Therapy Evaluate & Treat Comment: Physician Instructions: Evaluate and treat 01/07/23 11:39 Consult to Occupational Therapy Evaluate & Treat Comment: Physician Instructions: Evaluate and treat Consult to Physical Therapy Evaluate & Treat Comment: Physician Instructions: Evaluate and Treat Discharge provider: Mingo Mckee DO Summary Hospital Course Discharge Diagnosis: # sepsis secondary to MSSA bacteremia, acute cystitis with acute respiratory failure with hypoxia and hypotension - MRSA swab positive. Blood cultures from admission positive in 07/07 bottles with MSSA. Repeat cultures from 01/05 negative. Changed from ceftriaxone and vancomycin to cefazolin 2g q8 hr on 01/06 given urine cultures also positive for E. coli. Will need 2 weeks IV antibiotics at least from negative culture (01/05). PICC line already in place. Previously followed with Dr. Bower at [facility] ID clinic but this provider is no longer there. Messaged kelseymervat SHIELDS about getting back in for an appt with a different provider. - marked leukocytosis with WBC 50 on admission, continuing to improve. Also with new respiratory failure, metabolic encephalopathy, and hypotension. Now improving with antibiotics though encephalopathy is slow to improve. - hypotension developed after diuretic, was given fluids back. Will increase diuretic as discussed below. - trended lactate until near normal at 2.5 from 5 on admission. - consider skin infection leading to bacteremia, though her foot wounds do not appear actively infected and is less likely the source at this time. - continue ancef 2mg q8h until 01/19 at SNF # acute on chronic respiratory failure with hypoxia - patient notes she was recently placed on home O2 - etiologies include sepsis, diastolic heart failure exacerbation, or COPD exacerbation. TTE with normal EF, no wall motion abnormalities but noted pulmonary HTN. Patient's obesity is certainly contributing. - continue management as in #1 above, initially decreased furosemide dosing but worsening congestion on CXR had a few days of 40 mg IV BID. Now transitioned to home dose furosemide 40 mg BID this afternoon. - continue steroids for COPD exacerbation, continued methylprednisolone and now on oral prednisone for COPD exacerbation. - patient continues on 2L NC, will use this at home - goal O2 89-96% while on supplemental therapy. # elevated troponin / myocardial injury - TTE with normal EF, no wall motion abnormalities, no chest pain - trended troponin until downtrending. Peaked at 0.5. - likely secondary to demand in setting of sepsis. # advanced care planning - She was previously DNR/DNI based on POLST form. However, when discussing current situation, if thought to be reversible etiology she would want to get better including with intubation if necessary. She does not wish to be a vegetable based on discussion with patient and family. Changed her code status to reflect this to full for now. Continue to readdress as an outpatient. # history of CVA ?- continue plavix, statin # chronic microcytic anemia, stable, present on admission - stable from prior admission # chronic leukocytosis with acute rise -per notes follows with hematology and source of leukocytosis unclear as patient refused bone marrow biopsy # DM2 -lantus increased again to 50U BID, increase as tolerated or needed based on blood sugars. -high dose SSI # PVD -continue plavix, statin # HTN -hold home losartan for now. # chronic LE diabetic foot ulcers -continue wound care. # insomnia, depression -continue celexa and ambien, hold remeron #obesity, BMI 42.1 Hospital Course: See above problem list. Exam Vital Signs (past 8 hours): - 01/11/23 07:41 01/11/23 08:48 Temperature 97.3 F L Pulse Rate 86 Respiratory Rate 20 Blood Pressure 148/73 H Pulse Oximetry 96 99 Oxygen Delivery Method Nasal Cannula Oxygen Flow Rate 1.5 1.5 Fraction of Inspired Oxygen 26 Fraction of Inspired Oxygen 26 SaO2/FiO2 Ratio 369 Oxygen Delivery Method Nasal Cannula Oxygen Flow Rate 1.5 Narrative Exam Narrative: Gen: alert, NAD Lungs: diminished breath sounds, poor effort. right lower crackles minimal. Some wheeze today, inspiratory on the L middle lung field. CV: RRR no m/r/g. Ext: no edema, L foot with purplish toes but no necrosis, induration, or erythema. R foot better color but also no evidence of active infection of chronic wounds. Neuro: no focal deficits, moves all extremities. Now alert and oriented to name, location, and month/year. Objective Labs 01/11/23 05:10 01/11/23 05:10 Labs: Laboratory Results - last 24 hr 01/11/23 05:10 WBC 38.3 H* RBC 5.21 H Hgb 10.6 L Hct 35.5 L MCV 68.2 L MCH 20.3 L MCHC 29.7 L RDW 19.3 H Plt Count 467 H Neut % (Auto) Not Reportable Lymph % (Auto) Not Reportable [place] % (Auto) Not Reportable Eos % (Auto) Not Reportable Baso % (Auto) Not Reportable Lymph # (Auto) Not Reportable [place] # (Auto) Not Reportable Baso # (Auto) Not Reportable Total Counted 100 Seg Neutrophils % 81.0 H Band Neutrophils % 1.0 L Lymphocytes % (Manual) 12.0 L Monocytes % (Manual) 6.0 Neutrophils # (Manual) 71028 H RBC Morphology See below Hypochromasia 1+ H Anisocytosis 2+ H Microcytosis 2+ H Stomatocytes 1+ H Sodium 134 L Potassium 4.0 Chloride 92 L Carbon Dioxide 38 H BUN 16 Creatinine 0.45 L Estimated GFR > 60 BUN/Creatinine Ratio 35.6 H Glucose 66 L Calcium 8.3 L PFSH Medical History Abnormal LFTs Acute hyperkalemia CHF (congestive heart failure) Diabetes Leukocytosis (leucocytosis) Pneumonia PVD (peripheral vascular disease) Respiratory failure, acute Right hemiparesis Scalp laceration TIA (transient ischemic attack) Surgical History H/O angioplasty History of cholecystectomy Social History household members: caregiver Smoking Status: Current every day smoker alcohol intake: never Discharge Plan Discharge Plan Patient Disposition: SNF Discharge orders & Medications Prescriptions: New acetaminophen-codeine 300-30 mg Tablet 1 tab PO Q4HR PRN (Reason: Pain, Moderate (4-6)) Qty: 30 0RF zolpidem 10 mg tablet 10 mg PO BEDTIME PRN (Reason: Sleep) Qty: 30 0RF Continued duloxetine 20 mg capsule,delayed release(DR/EC) 20 mg PO DAILY Qty: 30 0RF acetaminophen [Tylenol Extra Strength] 500 MG tablet 1 - 2 tab PO PRN PRN (Reason: pain/ fever) Qty: 0 atorvastatin 80 mg tablet 80 mg PO DAILY Patient Comments: TAKE 1 TABLET (80mg) BY MOUTH EVERY DAY clopidogrel 75 mg tablet 75 mg PO DAILY zolpidem 10 mg tablet 10 mg PO QPM Victoza 3-Nicho 0.6 mg/0.1 mL (18 mg/3 mL) pen injector 1.8 mg SUBCUT DAILY Patient Comments: INJECT 1.8mg into the SKIN DAILY INSTRUCTED citalopram 40 mg tablet 40 mg PO DAILY Qty: 30 0RF albuterol 90 mcg/actuation Aerosol 2 mcg INHALATION Q4H PRN (Reason: shortness of breath) polyethylene glycol 3350 [Miralax] 17 gram Powder In Packet 17 g PO DAILY PRN (Reason: Constipation) calcium carbonate [Calcium Antacid] 300 mg (750 mg) Tablet,Chewable 750 mg PO BID PRN (Reason: Dyspepsia) famotidine 20 mg Tablet 20 mg PO DAILY mupirocin 2 % Ointment 1 applic TOPICAL DAILY Patient Comments: 1x/day every wednesday/wednesday/wednesday Rx Instructions: to bilateral foot wounds nystatin 100,000 unit/gram Powder 1 applic TOPICAL BID PRN (Reason: erythema) Rx Instructions: pannis and groin folds ondansetron 4 mg Tablet,Disintegrating 4 mg PO Q6H PRN (Reason: Nausea) fluticasone propionate [Allergy Relief (fluticasone)] 50 mcg/actuation [place],Suspension 1 spray INTRANASAL DAILY Rx Instructions: administer into each nostril cyclobenzaprine 10 mg tablet 10 mg PO BID PRN (Reason: Spasms) furosemide 40 mg tablet 40 mg PO BID potassium chloride 20 mEq tablet,ER particles/crystals 20 meq PO BID mirtazapine 15 mg tablet 7.5 mg PO BEDTIME Levemir FlexPen 100 unit/mL (3 mL) insulin pen 55 unit SUBCUT BEDTIME Patient Comments: [NO ORIGINAL SIG] Victoza 3-Nicho 0.6 mg/0.1 mL (18 mg/3 mL) pen injector 1.8 mg SUBCUT DAILY Patient Comments: [NO ORIGINAL SIG] Levemir FlexPen 100 unit/mL (3 mL) insulin pen 60 unit SUBCUT DAILY Patient Comments: takes 60 in am 55 at bedtime Follow up/Referrals: Bk Espinoza MD [Primary Care Provider] - 2 Weeks Visit Report/Discharge Packet Stand Alone Forms: Patient Portal/API Discharge Data Primary Care Provider: Bk Espinoza Quality VTE Deep Vein Thrombosis/Pulmonary Embolism Present on Admission: No
--- NOTE | 2023-01-11 11:41 | PC.NURSE ---
Addendum entered by Sima Hoffmann R.N. 01/11/23 12:48: 2nd call placed to [facility] to discuss POC for planned dc from [facility] and admit to [facility]. patient has chronic leukemia, which is why patients wbc count remains high. msg left for marketing manager. Original Note: 1100: patient is a/o, voices needs. 2pa ADLs and mobility assistance. L foot is in soft splint/heel protector. R foot podus boot. toes are extremely dry, ulcerated. dressings to bilat feet are CDI. followed by wound center. 2 lumen picc to LUE dressing changed, covered w/ net securement device. drawsback blood, flushes well. heparinized post IV abx. bed bath given, allowed FLIGHT INSPECTOR and RN to wash her hair, which is very matted and knotted up, had a braid in that needed to be cut out in a few areas after brushing thru. house lotion used as conditioner, patient agreeable to this, and allowed this RN to brush alot of the tangles, but could only tolerate that for a short time. fingernails are long, appear to be dirty underneath nail. attempted to clean w/ bed bath. tolerated IV abx this AM via 2 lumen picc. afebrile. no bm x 7 days, declined miralax, accepted senna and large glass of prune juice. declined offer to toilet using bedpan prior to dc to [facility] this afternoon. bt active x 4 quadrants. patient sees wound care at [facility] every other day-- patient is unable to recall exactly what they do for the wound care dressings. upon initial exam: patient appears to have dry gauze dressings applied over dry ulcers on her feet and heels. report phoned to [facility], spoke w/ Jenelle, accepting/admitting nurse/healthcare network consultant. [facility] 1230 [facility]
[2023-01-11 12:00] VITALS: BP 138/62; PULSE 78; RESP 20; TEMP 35.9; O2SAT 100
--- NOTE | 2023-01-11 13:14 | CM.DPNOTE ---
DC Note Discharge today to [facility]. Updated med list, DC Summary and PASRR emailed to Jadyn at [facility] by RAVIN Beckford. S arranged per suggestion from JESSICA Gao for safe transport. ambulance called with transport arranged for 1230. Completed the certification for medical necessity form, signed by Dr Mckee and provided to S crew w/face sheet. JESSICA Gao updated and called report. Patient aware and agreeable to plan. Placed call to [facility], spoke with Myles. Requested that he come picker and packer patient's motorized wheelchair in patient room since patient will be transporting via BLS and can transport back home to [facility] via BLS as well. Myles agreeable. Plan: Discharge to [facility] SNF via BLS JW
--- NOTE | 2023-01-11 13:53 | PC.NURSE ---
1315: BLS arrived to p/u patient for xfer to [facility]. full verbal report given, copy of polst given. patient xferred via mechanical lift w/ 4pa to stretcher. 2lpm via NC. spo2 100%, patient tolerated xfer well. 4 bags of belongings including computer flatscreen monitor, keyboard and mouse carried down to ambulance.
== END 2023-01-11 13:30 | DRG 871 ==
LOC: ED 08:42 → AC 14:26 → ICU 14:51 → AC 01-10 15:01
PROVIDERS: Student in an Organized Health Care Education/Training Program; Admitting Provider Internal Medicine; Emergency Provider Emergency Medicine; PCP Family Medicine; Referring Provider Emergency Medicine; Visit Provider Internal Medicine
DX: A41.9 Sepsis, unspecified organism (principal); J18.9 Pneumonia, unspecified organism; J96.21 Acute and chronic respiratory failure with hypoxia; N30.00 Acute cystitis without hematuria; I5A Non-ischemic myocardial injury (non-traumatic); E11.621 Type 2 diabetes mellitus with foot ulcer; L97.529 Non-pressure chronic ulcer of other part of left foot with unspecified severity; L97.519 Non-pressure chronic ulcer of other part of right foot with unspecified severity; I73.9 Peripheral vascular disease, unspecified; G47.00 Insomnia, unspecified; F32.A Depression, unspecified; R65.20 Severe sepsis without septic shock; B95.61 Methicillin susceptible Staphylococcus aureus infection as the cause of diseases classified elsewhere; B96.20 Unspecified Escherichia coli [E. coli] as the cause of diseases classified elsewhere; B95.62 Methicillin resistant Staphylococcus aureus infection as the cause of diseases classified elsewhere; F17.210 Nicotine dependence, cigarettes, uncomplicated; Z66 Do not resuscitate; Z99.81 Dependence on supplemental oxygen; Z79.4 Long term (current) use of insulin; Z86.73 Personal history of transient ischemic attack (TIA), and cerebral infarction without residual deficits
CPT/HCPCS: 36415; 36569; 36592; 36600; 51798; 71045; 71275; 74177; 80048; 80053; 81001; 82550; 82805; 82962; 83605; 83690; 83735; 83880; 84145; 84484; 85007; 85025; 85610; 85730; 87040; 87077; 87086; 87147; 87154; 87186; 87205; 87633; 87797; 92610; 93005; 93307; 94640; 94660; 94762; 96365; 96366; 96367; 97162; 99285; A9270; J0131; J0690; J0696; J1200; J1642; J1650; J1815; J1940; J2060; J2930; J3475; Q9957; Q9967